=== PATIENT | female | born 1990 | race Caucasian/White ===

== ENCOUNTER 2016-03-20 20:39 | Emergency (ER) | payer MEDICARE, MEDICAID ==
[~2016-03-20 20:39] MED LIST: ABIL15TA OR; ABIL20TA2 OR; BACT800T OR; EFFE150C OR; EFFE75CA75 OR; INVE6TAB3 OR; LAMI25TA OR; TRIL600T OR; [UNRECOGNIZED DRUG - CODE] OR
--- NOTE | 2016-03-20 21:09 | EDDOCDS ---
Physician Documentation [facility] Name: Odilia Delvalle Age: 25 yrs Sex: Female : 1990 Arrival Date: 03/20/2016 Time: 20:39 Bed TR1 Private MD: Shanice Ross Disposition: 03/20/16 20:55 Discharged to Home/Self Care. Impression: Abrasion of back wall of thorax. - Condition is Stable. - Discharge Instructions: Abrasion. - Medication Reconciliation, Local Pharmacy Hours form. - Follow up: Private Physician; When: As needed; Reason: Continuance of care. - Problem is new. - Symptoms are unchanged. - Notes: ice 20 min an hour Historical: - Allergies: seasonAL; - Home Meds: 1. Effexor XR 75 mg Oral cp24 1 cap twice daily 2. Abilify 20 mg Oral tab 1 tab once daily 3. Colace 100 mg oral cap 1 cap once daily 4. flonase 50 mcg 1 spray daily 5. Lamictal 200 mg Oral tab 1 tab 2 times per day 6. Vitamin D 2000 units Oral 2000 unit daily D3 7. Claritin 10 mg Oral tab 1 tab once daily - PMHx: Depression; Seizure Disorder; - PSHx: none; - Social history: Smoking status: Patient states was never smoker of tobacco. No barriers to communication noted, The patient speaks fluent Kyrgyz. - Family history: Not pertinent. - : The pt / caregiver states he / she is not on anticoagulants. Home medication list is obtained from the caregiver. - Exposure Risk Screening:: None identified. REVIEW ANALYST: 03/20 20:46 LMP 03/13/2016 ms18 Vital Signs: 20:40 BP 117 / 79; Pulse 109; Resp 18 S; Temp 97.3(O); Pulse Ox 97% on R/A; Weight 92.53 kg / dd6 203.99 lbs (M); MDM: 21:00 [facility] Payment Agreement was scanned into [employer] and attached to record. gjb 21:00 Financial registration complete. gjb Signatures: Mike Leary FNP FNP ke Hafner, Jane, RN RN [facility] Citlalli Reyes RN RN ms18 Elsy Reyes The chart was reviewed and I authenticate all verbal orders and agree with the evaluation and treatment provided.Attachments: 21:00 [facility] Payment Agreement gjb MTDD
--- NOTE | 2016-03-20 21:09 | EDDOCDS ---
Nurse's Notes [facility] Name: Odilia Delvalle Age: 25 yrs Sex: Female : 1990 Arrival Date: 03/20/2016 Time: 20:39 Bed TR1 Private MD: Shanice Ross Diagnosis: Abrasion of back wall of thorax Presentation: 03/20 20:41 Presenting complaint: Caregiver states that the pt fell in the shower approx 20 mins ms18 ago. Pt presents with a large hematoma on her back and an abrasion. Adult Sepsis Screening: The patient does not have new or worsening altered mentation. Patient's respiratory rate is less than 22. Systolic blood pressure is greater than 100. Patient has a qSOFA score of 0- Negative Sepsis Screen. Suicide/Homicide risk assessment- the patient denies having any suicidal and/or homicidal ideations and does not present with any other emotional, behavioral or mental health complaints. Status: Patient is not a client service representative or dependent. Transition of care: patient was not received from another setting of care. 20:41 Acuity: ANASTACIO Level 4 ms18 20:41 Method Of Arrival: Walkin/Carried/Asstd ms18 Triage Assessment: 20:46 General: Appears in no apparent distress, comfortable, Behavior is appropriate for age, ms18 cooperative. Pain: Location: lumbar area. HIV screening NA for this visit Offered previously. Neurological: Level of Consciousness is awake, Oriented to person, place. Respiratory: No deficits noted. Derm: Skin is pink, warm & dry. Bruising that is bright red, on lumbar area. Musculoskeletal: Reports pain in lumbar area. INSEMINATOR: 20:46 LMP 03/13/2016 ms18 Historical: - Allergies: seasonAL; - Home Meds: 1. Effexor XR 75 mg Oral cp24 1 cap twice daily 2. Abilify 20 mg Oral tab 1 tab once daily 3. Colace 100 mg oral cap 1 cap once daily 4. flonase 50 mcg 1 spray daily 5. Lamictal 200 mg Oral tab 1 tab 2 times per day 6. Vitamin D 2000 units Oral 2000 unit daily D3 7. Claritin 10 mg Oral tab 1 tab once daily - PMHx: Depression; Seizure Disorder; - PSHx: none; - Social history: Smoking status: Patient states was never smoker of tobacco. No barriers to communication noted, The patient speaks fluent Tamazight. - Family history: Not pertinent. - : The pt / caregiver states he / she is not on anticoagulants. Home medication list is obtained from the caregiver. - Exposure Risk Screening:: None identified. Screenin:04 Screening information is obtained from the patient. Fall risk: No risks identified. cj Assistance ADL's: requires no assistance with activities of daily living. Abuse/DV Screen: The patient / caregiver reports he/she is: not in a situation that causes fear, pain or injury. Nutritional screening: No deficits noted. Advance Directives: There is no active DNR order. home support is adequate. Assessment: 21:04 General: Appears in no apparent distress, comfortable, Behavior is appropriate for age, cjh cooperative. Pain: Location: back Pain currently is 5 out of 10 on a pain scale. Respiratory: Airway is patent Respiratory effort is even, unlabored, Respiratory pattern is regular, symmetrical. Musculoskeletal: Range of motion intact in all extremities. Injury Description: Abrasion sustained to back is no bleeding, clean pt fell from standing. 21:07 General: reviewed discharge instructions, encouraged and answered questions, denies [facility] further needs. Ice packs provided for home use, encouraged patient to return for worsening symptoms or any other concerns. Vital Signs: 20:40 BP 117 / 79; Pulse 109; Resp 18 S; Temp 97.3(O); Pulse Ox 97% on R/A; Weight 92.53 kg dd6 (M); Vitals: 20:40 Log In Time: March 20, 2016 at 20:38. dd6 ED Course: 20:40 Patient visited by Filiberto Rodriguez PCA. dd6 20:40 Shanice Ross DO is Private Physician. dd6 20:40 Patient moved to Waiting dd6 20:41 Patient moved to Pre RCE dd6 20:42 Triage Initiated ms18 20:47 Patient moved to Triage 2 ms18 20:48 Mike Leary FNP is [facility]. ke 20:48 Patient visited by Mike Leary FNP. ke 20:48 Patient visited by Mike Leary FNP. ke 21:00 [facility] Payment Agreement was scanned into [employer] and attached to record. gjb 21:04 Patient moved to TR1 rs6 21:04 The patient / caregiver is instructed regarding the plan of care and ED course. [facility] 21:04 No IV's were initiated during this patient's visit. No procedures done that require [facility] assistance. Order Results: There are currently no results for this order. Outcome: 20:55 Discharge ordered by Provider. 21:04 Discharge Assessment: Patient awake, alert and oriented x 3. No cognitive and/or [facility] functional deficits noted. Patient verbalized understanding of disposition instructions. patient administered narcotics - no. The following High Risk Discharge criteria are identified: None. Discharged to home ambulatory, putty patcher. Condition: good Condition: stable Condition: unchanged. Discharge instructions given to patient, Instructed on discharge instructions, follow up and referral plans. Rest, Ice, Compression and Elevation. Demonstrated understanding of instructions, Pt was receptive of discharge instructions/ teaching. No special radiology studies were completed. Property :Personal belongings accompany Pt. 21:08 Patient left the ED. [facility] Signatures: Mike Leary, ACID EXTRACTOR ACID EXTRACTOR Filiberto Price, LARD BLEACHER LARD BLEACHER dd6 Shanice Carias RN RN [facility] Citlalli Reyes RN RN msHeidi Ortiz, LARD BLEACHER LARD BLEACHER rs6 Elsy Reyes [facility]
--- NOTE | 2016-03-22 22:09 | EDDOCDS ---
Physician Documentation [facility] Name: Odilia Delvalle Age: 25 yrs Sex: Female : 1990 Arrival Date: 03/20/2016 Time: 20:39 Bed TR1 Private MD: Shanice Ross Disposition: 03/20/16 20:55 Discharged to Home/Self Care. Impression: Abrasion of back wall of thorax. - Condition is Stable. - Discharge Instructions: Abrasion. - Medication Reconciliation, Local Pharmacy Hours form. - Follow up: Private Physician; When: As needed; Reason: Continuance of care. - Problem is new. - Symptoms are unchanged. - Notes: ice 20 min an hour Historical: - Allergies: seasonAL; - Home Meds: 1. Effexor XR 75 mg Oral cp24 1 cap twice daily 2. Abilify 20 mg Oral tab 1 tab once daily 3. Colace 100 mg oral cap 1 cap once daily 4. flonase 50 mcg 1 spray daily 5. Lamictal 200 mg Oral tab 1 tab 2 times per day 6. Vitamin D 2000 units Oral 2000 unit daily D3 7. Claritin 10 mg Oral tab 1 tab once daily - PMHx: Depression; Seizure Disorder; - PSHx: none; - Social history: Smoking status: Patient states was never smoker of tobacco. No barriers to communication noted, The patient speaks fluent Turkmen. - Family history: Not pertinent. - : The pt / caregiver states he / she is not on anticoagulants. Home medication list is obtained from the caregiver. - Exposure Risk Screening:: None identified. TOOL DRESSER: 03/20 20:46 LMP 03/13/2016 ms18 Vital Signs: 20:40 BP 117 / 79; Pulse 109; Resp 18 S; Temp 97.3(O); Pulse Ox 97% on R/A; Weight 92.53 kg / dd6 203.99 lbs (M); MDM: 21:00 [facility] Payment Agreement was scanned into [employer] and attached to record. [facility] 21:00 Financial registration complete. b 03/21 09:34 T-Sheet-- Draft Copy was scanned into [employer] and attached to record. gb Signatures: Argelia Ching, Reg Reg Mike Mazariegos, SNOW GROOMER SNOW GROOMER Shanice Julian,RN RN [facility] Citlalli Reyes RN RN ms18 Elsy Reyesb The chart was reviewed and I authenticate all verbal orders and agree with the evaluation and treatment provided.Attachments: 03/20 21:00 [facility] Payment Agreement gjb 03/21 09:34 T-Sheet-- Draft Copy gb Chart Complete MTDD
--- NOTE | 2016-03-22 22:09 | EDDOCDS ---
Nurse's Notes [facility] Name: Odilia Delvalle Age: 25 yrs Sex: Female : 1990 Arrival Date: 03/20/2016 Time: 20:39 Bed TR1 Private MD: Shanice Ross Diagnosis: Abrasion of back wall of thorax Presentation: 03/20 20:41 Presenting complaint: Caregiver states that the pt fell in the shower approx 20 mins ms18 ago. Pt presents with a large hematoma on her back and an abrasion. Adult Sepsis Screening: The patient does not have new or worsening altered mentation. Patient's respiratory rate is less than 22. Systolic blood pressure is greater than 100. Patient has a qSOFA score of 0- Negative Sepsis Screen. Suicide/Homicide risk assessment- the patient denies having any suicidal and/or homicidal ideations and does not present with any other emotional, behavioral or mental health complaints. Status: Patient is not a children's service worker or dependent. Transition of care: patient was not received from another setting of care. 20:41 Acuity: ANASTACIO Level 4 ms18 20:41 Method Of Arrival: Walkin/Carried/Asstd ms18 Triage Assessment: 20:46 General: Appears in no apparent distress, comfortable, Behavior is appropriate for age, ms18 cooperative. Pain: Location: lumbar area. HIV screening NA for this visit Offered previously. Neurological: Level of Consciousness is awake, Oriented to person, place. Respiratory: No deficits noted. Derm: Skin is pink, warm & dry. Bruising that is bright red, on lumbar area. Musculoskeletal: Reports pain in lumbar area. WET END TESTER: 20:46 LMP 03/13/2016 ms18 Historical: - Allergies: seasonAL; - Home Meds: 1. Effexor XR 75 mg Oral cp24 1 cap twice daily 2. Abilify 20 mg Oral tab 1 tab once daily 3. Colace 100 mg oral cap 1 cap once daily 4. flonase 50 mcg 1 spray daily 5. Lamictal 200 mg Oral tab 1 tab 2 times per day 6. Vitamin D 2000 units Oral 2000 unit daily D3 7. Claritin 10 mg Oral tab 1 tab once daily - PMHx: Depression; Seizure Disorder; - PSHx: none; - Social history: Smoking status: Patient states was never smoker of tobacco. No barriers to communication noted, The patient speaks fluent Danish. - Family history: Not pertinent. - : The pt / caregiver states he / she is not on anticoagulants. Home medication list is obtained from the caregiver. - Exposure Risk Screening:: None identified. Screenin:04 Screening information is obtained from the patient. Fall risk: No risks identified. cj Assistance ADL's: requires no assistance with activities of daily living. Abuse/DV Screen: The patient / caregiver reports he/she is: not in a situation that causes fear, pain or injury. Nutritional screening: No deficits noted. Advance Directives: There is no active DNR order. home support is adequate. Assessment: 21:04 General: Appears in no apparent distress, comfortable, Behavior is appropriate for age, cjh cooperative. Pain: Location: back Pain currently is 5 out of 10 on a pain scale. Respiratory: Airway is patent Respiratory effort is even, unlabored, Respiratory pattern is regular, symmetrical. Musculoskeletal: Range of motion intact in all extremities. Injury Description: Abrasion sustained to back is no bleeding, clean pt fell from standing. 21:07 General: reviewed discharge instructions, encouraged and answered questions, denies [facility] further needs. Ice packs provided for home use, encouraged patient to return for worsening symptoms or any other concerns. Vital Signs: 20:40 BP 117 / 79; Pulse 109; Resp 18 S; Temp 97.3(O); Pulse Ox 97% on R/A; Weight 92.53 kg dd6 (M); Vitals: 20:40 Log In Time: March 20, 2016 at 20:38. dd6 ED Course: 20:40 Patient visited by Filiberto Rodriguez PCA. dd6 20:40 Shanice Ross DO is Private Physician. dd6 20:40 Patient moved to Waiting dd6 20:41 Patient moved to Pre RCE dd6 20:42 Triage Initiated ms18 20:47 Patient moved to Triage 2 ms18 20:48 Mike Leary FNP is [facility]. ke 20:48 Patient visited by Mike Leary FNP. ke 20:48 Patient visited by Mike Leary FNP. ke 21:00 [facility] Payment Agreement was scanned into [employer] and attached to record. gjb 21:04 Patient moved to TR1 rs6 21:04 The patient / caregiver is instructed regarding the plan of care and ED course. [facility] 21:04 No IV's were initiated during this patient's visit. No procedures done that require [facility] assistance. 21:10 Patient name changed from Sundi\S\\S\Bigarel\S\ to Sundi\S\ \S\Bigarel. EDMS 03/21 09:34 T-Sheet-- Draft Copy was scanned into [employer] and attached to record. Order Results: There are currently no results for this order. Outcome: 03/20 20:55 Discharge ordered by Provider. 21:04 Discharge Assessment: Patient awake, alert and oriented x 3. No cognitive and/or [facility] functional deficits noted. Patient verbalized understanding of disposition instructions. patient administered narcotics - no. The following High Risk Discharge criteria are identified: None. Discharged to home ambulatory, cutter and presser. Condition: good Condition: stable Condition: unchanged. Discharge instructions given to patient, Instructed on discharge instructions, follow up and referral plans. Rest, Ice, Compression and Elevation. Demonstrated understanding of instructions, Pt was receptive of discharge instructions/ teaching. No special radiology studies were completed. Property :Personal belongings accompany Pt. 21:08 Patient left the ED. [facility] Signatures: Dispatcher [facility] Argelia Ching, Mike Gutierrez, CLINICAL INFORMATICS MANAGER CLINICAL INFORMATICS MANAGER Filiberto Price, CARDIOVASCULAR SURGEON CARDIOVASCULAR SURGEON dd6 Shanice Carias RN RN [facility] Citlalli Reyes RN RN msHeidi Ortiz, CARDIOVASCULAR SURGEON CARDIOVASCULAR SURGEON rs6 Elsy Reyes Chart Complete MTDD
--- NOTE | 2016-03-22 22:09 | EDDOCDS ---
Physician Documentation [facility] Name: Odilia Delvalle Age: 25 yrs Sex: Female : 1990 Arrival Date: 03/20/2016 Time: 20:39 Bed TR1 Private MD: Shanice Ross Disposition: 03/20/16 20:55 Discharged to Home/Self Care. Impression: Abrasion of back wall of thorax. - Condition is Stable. - Discharge Instructions: Abrasion. - Medication Reconciliation, Local Pharmacy Hours form. - Follow up: Private Physician; When: As needed; Reason: Continuance of care. - Problem is new. - Symptoms are unchanged. - Notes: ice 20 min an hour Historical: - Allergies: seasonAL; - Home Meds: 1. Effexor XR 75 mg Oral cp24 1 cap twice daily 2. Abilify 20 mg Oral tab 1 tab once daily 3. Colace 100 mg oral cap 1 cap once daily 4. flonase 50 mcg 1 spray daily 5. Lamictal 200 mg Oral tab 1 tab 2 times per day 6. Vitamin D 2000 units Oral 2000 unit daily D3 7. Claritin 10 mg Oral tab 1 tab once daily - PMHx: Depression; Seizure Disorder; - PSHx: none; - Social history: Smoking status: Patient states was never smoker of tobacco. No barriers to communication noted, The patient speaks fluent Serbian. - Family history: Not pertinent. - : The pt / caregiver states he / she is not on anticoagulants. Home medication list is obtained from the caregiver. - Exposure Risk Screening:: None identified. TWISTER DOFFER: 03/20 20:46 LMP 03/13/2016 ms18 Vital Signs: 20:40 BP 117 / 79; Pulse 109; Resp 18 S; Temp 97.3(O); Pulse Ox 97% on R/A; Weight 92.53 kg / dd6 203.99 lbs (M); MDM: 21:00 [facility] Payment Agreement was scanned into [employer] and attached to record. [facility] 21:00 Financial registration complete. b 03/21 09:34 T-Sheet-- Draft Copy was scanned into [employer] and attached to record. gb Signatures: Argelia Ching, Reg Reg Mike Mazariegos, DUMP TRUCK DRIVER OFF HIG[address] DUMP TRUCK DRIVER OFF HIG[address] Shanice Julian,RN RN [facility] Citlalli Reyes RN RN ms18 Elsy Reyesb The chart was reviewed and I authenticate all verbal orders and agree with the evaluation and treatment provided.Attachments: 03/20 21:00 [facility] Payment Agreement gjb 03/21 09:34 T-Sheet-- Draft Copy gb Chart Complete MTDD
== END 2016-03-20 21:08 | disposition home or self-care (01) ==
LOC: M ED 20:39
DX: S20.419A Abrasion of unspecified back wall of thorax, initial encounter (principal); W01.0XXA Fall on same level from slipping, tripping and stumbling without subsequent striking against object, initial encounter; Y92.003 Bedroom of unspecified non-institutional (private) residence as the place of occurrence of the external cause; Y93.E1 Activity, personal bathing and showering; Y99.8 Other external cause status; F32.9 Major depressive disorder, single episode, unspecified; G40.909 Epilepsy, unspecified, not intractable, without status epilepticus; Z79.899 Other long term (current) drug therapy; J30.9 Allergic rhinitis, unspecified

== ENCOUNTER → 2016-05-21 | Outpatient (CLI) | payer MEDICARE, MEDICAID | LOC: M LAB 06:33 | PROVIDERS: ATTEND Physician Assistant Medical | DX: G40.909 Epilepsy, unspecified, not intractable, without status epilepticus (principal) ==

== ENCOUNTER → 2016-08-15 | Outpatient (REF) | payer MEDICARE, MEDICAID | LOC: M LABDRAW1 12:08 | PROVIDERS: ATTEND Physician Assistant Medical | DX: G40.909 Epilepsy, unspecified, not intractable, without status epilepticus (principal); R00.2 Palpitations ==

== ENCOUNTER → 2016-10-30 | Outpatient (CLI) | payer MEDICARE, MEDICAID ==
[2016-10-30 06:58] LABS: MEAN CORPUSCULAR HGB CONC 32.8 g/dl (32.0-36.5); MEAN CORPUSCULAR VOLUME 82.6 fl (80.0-96.0); RED CELL DISTRIBUTION WIDTH 14.4 % (11.5-14.5); WHITE BLOOD COUNT 6.8 K/mm3 (4.0-10.0)
[2016-10-30 07:37] LABS: ALBUMIN 3.8 GM/DL (3.2-5.2); ALBUMIN/GLOBULIN RATIO 1.23 (1.00-1.93); ALKALINE PHOSPHATASE 113 U/L (45-117); ALT/SGPT 26 U/L (12-78); ANION GAP 9 MEQ/L (8-16); AST/SGOT 15 U/L (15-37); BILIRUBIN,TOTAL 0.5 MG/DL (0.2-1.0); BLOOD UREA NITROGEN 9 MG/DL (7-18); CALCIUM LEVEL 8.7 MG/DL (8.5-10.1); CARBON DIOXIDE LEVEL 29 MEQ/L (21-32); CHLORIDE LEVEL 109 MEQ/L (98-107); GLOMERULAR FILTRATION RATE > 60.0 (>60); GLUCOSE, FASTING 76 MG/DL (70-105); POTASSIUM SERUM 4.3 MEQ/L (3.5-5.1); SODIUM LEVEL 147 MEQ/L (136-145); TOTAL PROTEIN 6.9 GM/DL (6.4-8.2)
== END ==
LOC: M LAB 06:20
PROVIDERS: ATTEND Student in an Organized Health Care Education/Training Program
DX: Z00.00 Encounter for general adult medical examination without abnormal findings (principal); Z79.899 Other long term (current) drug therapy; R56.9 Unspecified convulsions

== ENCOUNTER → 2017-02-27 | Outpatient (CLI) | payer MEDICARE, MEDICAID | LOC: M LAB 06:35 | PROVIDERS: ATTEND Physician Assistant Medical | DX: Z51.81 Encounter for therapeutic drug level monitoring (principal); Z79.899 Other long term (current) drug therapy; R56.9 Unspecified convulsions ==

== ENCOUNTER 2017-04-02 15:56 | Inpatient (IN) | payer MEDICARE, MEDICAID, OTHER ==
[2017-04-02 17:59] LABS: CONTROL LINE HCG INT CTR LINE PRESENT; HCG, SERUM QUALITATIVE NEGATIVE (NEGATIVE)
[2017-04-02 18:00] LABS: HEMATOCRIT 39.4 % (36.0-47.0); HEMOGLOBIN 12.6 g/dl (12.0-16.0); MEAN CORPUSCULAR HEMOGLOBIN 26.8 pg (27.0-33.0); MEAN CORPUSCULAR VOLUME 83.7 fl (80.0-96.0); PLATELET COUNT, AUTOMATED 313 10^3/uL (150-450); RED BLOOD COUNT 4.71 10^6/uL (4.00-5.40); RED CELL DISTRIBUTION WIDTH 14.2 % (11.5-14.5); WHITE BLOOD COUNT 11.4 10^3/uL (4.0-10.0)
[2017-04-02 18:11] LABS: AMPHETAMINES LEVEL URINE NEGATIVE (NEGATIVE); BARBITURATES URINE NEGATIVE (NEGATIVE); BENZODIAZEPINES URINE NEGATIVE (NEGATIVE); CANNABINOIDS URINE NEGATIVE (NEGATIVE); COCAINE METABOLITE URINE NEGATIVE (NEGATIVE); METHADONE URINE NEGATIVE (NEGATIVE); OPIATES URINE NEGATIVE (NEGATIVE); PHENCYCLIDINE URINE NEGATIVE (NEGATIVE)
[2017-04-02 18:16] LABS: ALBUMIN 3.5 GM/DL (3.2-5.2); ALBUMIN/GLOBULIN RATIO 0.92 (1.00-1.93); ALKALINE PHOSPHATASE 93 U/L (45-117); ALT/SGPT 16 U/L (12-78); ANION GAP 7 MEQ/L (8-16); AST/SGOT 10 U/L (7-37); BILIRUBIN,DIRECT < 0.1 MG/DL (0.0-0.2); BILIRUBIN,TOTAL 0.3 MG/DL (0.2-1.0); BLOOD UREA NITROGEN 9 MG/DL (7-18); CALCIUM LEVEL 9.2 MG/DL (8.5-10.1); CARBON DIOXIDE LEVEL 29 MEQ/L (21-32); CHLORIDE LEVEL 104 MEQ/L (98-107); CREATININE FOR GFR 0.62 MG/DL (0.55-1.02); GLOMERULAR FILTRATION RATE > 60.0 (>60); GLUCOSE, FASTING 78 MG/DL (70-100); POTASSIUM SERUM 4.8 MEQ/L (3.5-5.1); SALICYLATE LEVEL < 1.7 MG/DL (5.0-30.0); SODIUM LEVEL 140 MEQ/L (136-145); TOTAL PROTEIN 7.3 GM/DL (6.4-8.2)
[2017-04-02 18:25] LABS: ACETAMINOPHEN LEVEL < 2.0 UG/ML (10.0-30.0); ETHYL ALCOHOL (ETHANOL) < 0.003 % (0.000-0.010)
[2017-04-03] MEDS ORDERED: MIRALAX *UNIT DOSE* 17GM PACKET PO (00:45)
[2017-04-03] MEDS ORDERED: MAALOX 30 ML SUSP *UDC PO (00:45)
[2017-04-03] MEDS ORDERED: MOM 30ML SUSPENSION UDC PO (00:45)
[2017-04-03] MEDS: lamoTRIgine 100MG TAB PO ×3 (01:06→20:43)
[2017-04-03] MEDS: ARIPiprazole 2 MG TAB PO (01:06)
[2017-04-03] MEDS: ARIPiprazole 10 MG TAB PO ×2 (08:21→20:42)
[2017-04-03] MEDS: VITAMIN D 1,000 INTERNATIONAL UNITS TABLET PO (08:22)
[2017-04-03] MEDS: LORATADINE 10 MG TAB PO (08:22)
[2017-04-03] MEDS: hydrOXYzine 10 MG TAB PO (11:57)
[2017-04-03] MEDS: NIKKI PO (13:36)
[2017-04-03] MEDS: FLUTICASONE PROP 0.05% NASAL SPRAY 16 GM (FLONASE) (20:43)
[2017-04-04 07:08] LABS: HEMATOCRIT 42.5 % (36.0-47.0); HEMOGLOBIN 13.6 g/dl (12.0-16.0); MEAN CORPUSCULAR HEMOGLOBIN 26.7 pg (27.0-33.0); MEAN CORPUSCULAR VOLUME 83.5 fl (80.0-96.0); PLATELET COUNT, AUTOMATED 299 10^3/uL (150-450); RED BLOOD COUNT 5.09 10^6/uL (4.00-5.40); RED CELL DISTRIBUTION WIDTH 14.1 % (11.5-14.5); WHITE BLOOD COUNT 9.7 10^3/uL (4.0-10.0)
[2017-04-04] MEDS: VITAMIN D 1,000 INTERNATIONAL UNITS TABLET PO (08:08)
[2017-04-04] MEDS: VENLAFAXINE **XR** 37.5 MG CAPSULE PO (08:08)
[2017-04-04] MEDS: LORATADINE 10 MG TAB PO (08:08)
[2017-04-04] MEDS: NIKKI PO (08:08)
[2017-04-04] MEDS: lamoTRIgine 100MG TAB PO ×2 (08:08→21:01)
[2017-04-04] MEDS: ARIPiprazole 10 MG TAB PO ×2 (08:08→21:02)
[2017-04-04] MEDS: VENLAFAXINE **XR** 75MG CAPSULE PO ×2 (08:08→21:01)
[2017-04-04] MEDS: hydrOXYzine 50 MG TAB PO (08:24)
[2017-04-04] MEDS ORDERED: ENTER DRUG NAME HERE (PATIENT'S OWN MED) PO (09:00)
[2017-04-04] MEDS: FLUTICASONE PROP 0.05% NASAL SPRAY 16 GM (FLONASE) (21:01)
[2017-04-05] MEDS: LORATADINE 10 MG TAB PO (08:26)
[2017-04-05] MEDS: lamoTRIgine 100MG TAB PO ×2 (08:26→21:19)
[2017-04-05] MEDS: NIKKI PO (08:26)
[2017-04-05] MEDS: VENLAFAXINE **XR** 75MG CAPSULE PO (08:26)
[2017-04-05] MEDS: ARIPiprazole 10 MG TAB PO ×2 (08:26→21:19)
[2017-04-05] MEDS: VITAMIN D 1,000 INTERNATIONAL UNITS TABLET PO (08:26)
[2017-04-05 14:13] LABS: LAMOTRIGINE (LAMICTAL) 4.3 ug/mL (2.0-20.0)
[2017-04-05] MEDS: FLUTICASONE PROP 0.05% NASAL SPRAY 16 GM (FLONASE) (21:19)
[2017-04-06] MEDS: VENLAFAXINE **XR** 75MG CAPSULE PO (08:37)
[2017-04-06] MEDS: lamoTRIgine 100MG TAB PO ×2 (08:37→20:53)
[2017-04-06] MEDS: ARIPiprazole 10 MG TAB PO ×2 (08:37→20:53)
[2017-04-06] MEDS: LORATADINE 10 MG TAB PO (08:37)
[2017-04-06] MEDS: VITAMIN D 1,000 INTERNATIONAL UNITS TABLET PO (08:37)
[2017-04-06] MEDS: NIKKI PO (08:37)
[2017-04-06] MEDS: FLUTICASONE PROP 0.05% NASAL SPRAY 16 GM (FLONASE) (20:53)
[2017-04-07] MEDS: VENLAFAXINE **XR** 75MG CAPSULE PO (08:24)
[2017-04-07] MEDS: NIKKI PO (08:24)
[2017-04-07] MEDS: ARIPiprazole 10 MG TAB PO ×2 (08:24→20:38)
[2017-04-07] MEDS: LORATADINE 10 MG TAB PO (08:24)
[2017-04-07] MEDS: VITAMIN D 1,000 INTERNATIONAL UNITS TABLET PO (08:25)
[2017-04-07] MEDS: lamoTRIgine 100MG TAB PO ×2 (08:25→20:38)
[2017-04-07] MEDS: FLUTICASONE PROP 0.05% NASAL SPRAY 16 GM (FLONASE) (20:39)
[2017-04-07] MEDS: hydrOXYzine 50 MG TAB PO (22:09)
[2017-04-08] MEDS: LORATADINE 10 MG TAB PO (09:00)
[2017-04-08] MEDS: ARIPiprazole 10 MG TAB PO ×2 (09:00→21:18)
[2017-04-08] MEDS: NIKKI PO (09:00)
[2017-04-08] MEDS: VITAMIN D 1,000 INTERNATIONAL UNITS TABLET PO (09:00)
[2017-04-08] MEDS: VENLAFAXINE **XR** 75MG CAPSULE PO (09:00)
[2017-04-08] MEDS: lamoTRIgine 100MG TAB PO ×2 (09:00→21:18)
[2017-04-08] MEDS: FLUTICASONE PROP 0.05% NASAL SPRAY 16 GM (FLONASE) (21:17)
[2017-04-09] MEDS: ARIPiprazole 10 MG TAB PO ×2 (09:49→20:36)
[2017-04-09] MEDS: LORazepam 1 MG TAB PO (09:49)
[2017-04-09] MEDS: LORATADINE 10 MG TAB PO (09:49)
[2017-04-09] MEDS: lamoTRIgine 100MG TAB PO ×2 (09:49→20:37)
[2017-04-09] MEDS: NIKKI PO (09:49)
[2017-04-09] MEDS: VITAMIN D 1,000 INTERNATIONAL UNITS TABLET PO (09:49)
[2017-04-09] MEDS: VENLAFAXINE **XR** 75MG CAPSULE PO (09:49)
[2017-04-09] MEDS: VENLAFAXINE **XR** 37.5 MG CAPSULE PO (09:51)
[2017-04-09] MEDS: FLUTICASONE PROP 0.05% NASAL SPRAY 16 GM (FLONASE) (20:36)
[2017-04-10] MEDS: VENLAFAXINE **XR** 75MG CAPSULE PO (08:49)
[2017-04-10] MEDS: VITAMIN D 1,000 INTERNATIONAL UNITS TABLET PO (08:50)
[2017-04-10] MEDS: VENLAFAXINE **XR** 37.5 MG CAPSULE PO (08:50)
[2017-04-10] MEDS: NIKKI PO (08:50)
[2017-04-10] MEDS: lamoTRIgine 100MG TAB PO ×2 (08:50→21:37)
[2017-04-10] MEDS: LORATADINE 10 MG TAB PO (08:50)
[2017-04-10] MEDS: ARIPiprazole 10 MG TAB PO ×2 (08:50→21:37)
[2017-04-10] MEDS: ACETAMINOPHEN TAB 650MG DOSE (2X325MG) PO (13:29)
[2017-04-10] MEDS: hydrOXYzine 50 MG TAB PO (18:38)
[2017-04-10] MEDS: FLUTICASONE PROP 0.05% NASAL SPRAY 16 GM (FLONASE) (21:37)
[2017-04-11] MEDS: lamoTRIgine 100MG TAB PO ×2 (09:00→20:23)
[2017-04-11] MEDS: VENLAFAXINE **XR** 37.5 MG CAPSULE PO (09:00)
[2017-04-11] MEDS: LORATADINE 10 MG TAB PO (09:00)
[2017-04-11] MEDS: VITAMIN D 1,000 INTERNATIONAL UNITS TABLET PO (09:00)
[2017-04-11] MEDS: ARIPiprazole 10 MG TAB PO ×2 (09:00→20:24)
[2017-04-11] MEDS: NIKKI PO (09:00)
[2017-04-11] MEDS: VENLAFAXINE **XR** 75MG CAPSULE PO (09:00)
[2017-04-11] MEDS: LORazepam 2 MG TAB PO (13:33)
[2017-04-11] MEDS: hydrOXYzine 50 MG TAB PO (18:18)
[2017-04-11] MEDS: FLUTICASONE PROP 0.05% NASAL SPRAY 16 GM (FLONASE) (20:23)
[2017-04-11] MEDS: traZODone 25MG PER 1/2 TABLET PO (20:25)
[2017-04-12] MEDS: NIKKI PO (08:29)
[2017-04-12] MEDS: VITAMIN D 1,000 INTERNATIONAL UNITS TABLET PO (08:29)
[2017-04-12] MEDS: lamoTRIgine 100MG TAB PO ×2 (08:29→22:13)
[2017-04-12] MEDS: LORATADINE 10 MG TAB PO (08:29)
[2017-04-12] MEDS: ARIPiprazole 10 MG TAB PO ×2 (08:29→22:13)
[2017-04-12] MEDS: VENLAFAXINE **XR** 75MG CAPSULE PO (08:29)
[2017-04-12] MEDS: VENLAFAXINE **XR** 37.5 MG CAPSULE PO (08:29)
[2017-04-12] MEDS: hydrOXYzine 50 MG TAB PO (14:40)
[2017-04-12] MEDS: FLUTICASONE PROP 0.05% NASAL SPRAY 16 GM (FLONASE) (22:13)
[2017-04-13] MEDS: ARIPiprazole 10 MG TAB PO ×2 (08:41→20:23)
[2017-04-13] MEDS: VENLAFAXINE **XR** 37.5 MG CAPSULE PO (08:41)
[2017-04-13] MEDS: lamoTRIgine 100MG TAB PO ×2 (08:41→20:23)
[2017-04-13] MEDS: NIKKI PO (08:41)
[2017-04-13] MEDS: VITAMIN D 1,000 INTERNATIONAL UNITS TABLET PO (08:41)
[2017-04-13] MEDS: LORATADINE 10 MG TAB PO (08:41)
[2017-04-13] MEDS: VENLAFAXINE **XR** 75MG CAPSULE PO (08:42)
[2017-04-13] MEDS: FLUTICASONE PROP 0.05% NASAL SPRAY 16 GM (FLONASE) (20:23)
[2017-04-14] MEDS: LORATADINE 10 MG TAB PO (08:53)
[2017-04-14] MEDS: VENLAFAXINE **XR** 37.5 MG CAPSULE PO (08:53)
[2017-04-14] MEDS: ARIPiprazole 10 MG TAB PO ×2 (08:53→21:43)
[2017-04-14] MEDS: VENLAFAXINE **XR** 75MG CAPSULE PO (08:53)
[2017-04-14] MEDS: VITAMIN D 1,000 INTERNATIONAL UNITS TABLET PO (08:53)
[2017-04-14] MEDS: lamoTRIgine 100MG TAB PO ×2 (08:53→21:43)
[2017-04-14] MEDS: NIKKI PO (08:54)
[2017-04-14] MEDS: hydrOXYzine 50 MG TAB PO (19:40)
[2017-04-14] MEDS: FLUTICASONE PROP 0.05% NASAL SPRAY 16 GM (FLONASE) (21:43)
[2017-04-15] MEDS: NIKKI PO (08:56)
[2017-04-15] MEDS: LORATADINE 10 MG TAB PO (08:58)
[2017-04-15] MEDS: VENLAFAXINE **XR** 37.5 MG CAPSULE PO (08:58)
[2017-04-15] MEDS: VENLAFAXINE **XR** 75MG CAPSULE PO (08:58)
[2017-04-15] MEDS: ARIPiprazole 10 MG TAB PO (08:58)
[2017-04-15] MEDS: VITAMIN D 1,000 INTERNATIONAL UNITS TABLET PO (08:59)
[2017-04-15] MEDS: lamoTRIgine 100MG TAB PO (08:59)
== END 2017-04-15 10:10 | disposition home or self-care (01) | DRG 885 ==
LOC: M PSY 23:50 → M ED 15:56 → M ED INP 20:59
DX: F31.89 Other bipolar disorder (principal); F79 Unspecified intellectual disabilities; K59.00 Constipation, unspecified; J30.2 Other seasonal allergic rhinitis; Z79.899 Other long term (current) drug therapy

== ENCOUNTER → 2017-06-24 | Outpatient (REF) | payer MEDICARE, MEDICAID ==
[2017-06-27 14:19] LABS: LAMOTRIGINE (LAMICTAL) 3.7 ug/mL (2.0-20.0)
== END ==
LOC: M LABNEURO 14:40
DX: R56.9 Unspecified convulsions (principal); Z51.81 Encounter for therapeutic drug level monitoring; Z79.899 Other long term (current) drug therapy; R45.89 Other symptoms and signs involving emotional state; F63.9 Impulse disorder, unspecified
CPT/HCPCS: 36415

== ENCOUNTER → 2017-07-10 | Outpatient (REF) | payer MEDICARE, OTHER, MEDICAID | LOC: M SFHCWAGY 10:27 | DX: Z12.4 Encounter for screening for malignant neoplasm of cervix (principal) | CPT/HCPCS: G0123 ==

== ENCOUNTER 2017-10-25 17:08 | Emergency (ER) | payer MEDICARE, MEDICAID, OTHER ==
[2017-10-25 19:29] LABS: HEMATOCRIT 40.9 % (36.0-47.0); HEMOGLOBIN 13.3 g/dl (12.0-15.5); MEAN CORPUSCULAR HEMOGLOBIN 27.6 pg (27.0-33.0); MEAN CORPUSCULAR HGB CONC 32.5 g/dl (32.0-36.5); MEAN CORPUSCULAR VOLUME 84.9 fl (80.0-96.0); PLATELET COUNT, AUTOMATED 288 10^3/uL (150-450); RED BLOOD COUNT 4.82 10^6/uL (4.00-5.40); RED CELL DISTRIBUTION WIDTH 13.5 % (11.5-14.5); WHITE BLOOD COUNT 11.1 10^3/uL (4.0-10.0)
[2017-10-25 19:51] LABS: ANION GAP 7 MEQ/L (8-16); BLOOD UREA NITROGEN 9 MG/DL (7-18); CALCIUM LEVEL 8.8 MG/DL (8.5-10.1); CARBON DIOXIDE LEVEL 30 MEQ/L (21-32); CHLORIDE LEVEL 106 MEQ/L (98-107); CREATININE FOR GFR 0.87 MG/DL (0.55-1.30); GLOMERULAR FILTRATION RATE > 60.0 (>60); GLUCOSE, FASTING 91 MG/DL (70-100); POTASSIUM SERUM 4.4 MEQ/L (3.5-5.1); SODIUM LEVEL 143 MEQ/L (136-145)
[2017-10-25] MEDS: LORazepam 2 MG/ML VIAL (J2060) IV (20:02)
== END 2017-10-25 21:27 | disposition home or self-care (01) ==
LOC: M ED 17:08
DX: F41.1 Generalized anxiety disorder (principal); R20.0 Anesthesia of skin; R56.9 Unspecified convulsions; Z79.899 Other long term (current) drug therapy; Z81.8 Family history of other mental and behavioral disorders
CPT/HCPCS: J2060

== ENCOUNTER → 2017-11-01 | Outpatient (CLI) | payer MEDICARE, MEDICAID ==
[2017-11-01 06:50] LABS: HEMATOCRIT 40.3 % (36.0-47.0); HEMOGLOBIN 13.3 g/dl (12.0-15.5); MEAN CORPUSCULAR VOLUME 84.8 fl (80.0-96.0); PLATELET COUNT, AUTOMATED 234 10^3/uL (150-450); RED BLOOD COUNT 4.75 10^6/uL (4.00-5.40); RED CELL DISTRIBUTION WIDTH 13.4 % (11.5-14.5); WHITE BLOOD COUNT 6.6 10^3/uL (4.0-10.0)
[2017-11-01 07:09] LABS: ESTIMATED AVERAGE GLUCOSE 91 MG/DL (60-110); HEMOGLOBIN A1c 4.8 %
[2017-11-01 07:22] LABS: ANION GAP 7 MEQ/L (8-16); BLOOD UREA NITROGEN 9 MG/DL (7-18); CALCIUM LEVEL 9.2 MG/DL (8.5-10.1); CARBON DIOXIDE LEVEL 29 MEQ/L (21-32); CHLORIDE LEVEL 109 MEQ/L (98-107); CREATININE FOR GFR 0.86 MG/DL (0.55-1.30); GLOMERULAR FILTRATION RATE > 60.0 (>60); GLUCOSE, FASTING 80 MG/DL (70-100); POTASSIUM SERUM 4.5 MEQ/L (3.5-5.1); SODIUM LEVEL 145 MEQ/L (136-145)
[2017-11-04 14:12] LABS: ARIPIPRAZOLE (ABILIFY) LEVEL 491.8 ng/mL (.)
[2017-11-04 14:12] LABS: LAMOTRIGINE (LAMICTAL) 5.6 ug/mL (2.0-20.0)
== END ==
LOC: M LAB 06:19
DX: F28 Other psychotic disorder not due to a substance or known physiological condition (principal); Z79.899 Other long term (current) drug therapy
CPT/HCPCS: 84443

== ENCOUNTER → 2018-03-18 | Outpatient (REF) | payer MEDICARE, MEDICAID, OTHER ==
[~2018-03-18] MED LIST changes: +ABIL1TAB13 PO; +ABIL20TA5 PO; +ACET500T15 PO; +ARIP10TAB PO; +FLON1SPR; +HYDR-643 PO; +HYDR50TA70 PO; +HYDRO50TAB PO; +IBUPOTC PO; +LAMO100T PO; +LAMO200T2 PO; +LORA-243 PO; +MIRA33504 PO; +NIKK1TAB PO; +VENL37.52 PO; +VENL37.598 PO; +VENL75CA47 PO; +VITA2000 PO
== END ==
LOC: M LABNEURO 11:46
PROVIDERS: ATTEND Physician Assistant Medical
DX: Z79.899 Other long term (current) drug therapy (principal); G40.909 Epilepsy, unspecified, not intractable, without status epilepticus

== ENCOUNTER → 2018-12-04 | Outpatient (CLI) | payer MEDICARE, MEDICAID ==
[~2018-12-04] MED LIST changes: +ABIL10TA9 PO; -ARIP10TAB PO; +ARIP1TAB PO; +BUSP1TAB PO; +D3 22000 PO; +EFFE37.5 PO; +EFFE75CA2 PO; +HYDR-3363 PO; +HYDR1TAB33 PO; -HYDRO50TAB PO; -LAMO100T PO; +LAMO100T3 PO; -LAMO200T2 PO; +LAMO200T3 PO
[2018-12-04 07:53] LABS: ALBUMIN 3.7 GM/DL (3.2-5.2); ALT/SGPT 22 U/L (12-78); BILIRUBIN,TOTAL 0.6 MG/DL (0.2-1.0); BLOOD UREA NITROGEN 11 MG/DL (7-18); CALCIUM LEVEL 9.6 MG/DL (8.5-10.1); CARBON DIOXIDE LEVEL 30 MEQ/L (21-32); CHLORIDE LEVEL 105 MEQ/L (98-107); CHOLESTEROL LEVEL 266 MG/DL (<200); CHOLESTEROL RISK RATIO 4.092 (<5); CREATININE FOR GFR 0.89 MG/DL (0.55-1.30); GLOMERULAR FILTRATION RATE > 60.0 (>60); GLUCOSE, FASTING 76 MG/DL (70-100); HDL CHOLESTEROL 65 MG/DL (>40); LDL CHOLESTEROL 142 MG/DL (<100); NON-HDL-C 201 MG/DL; POTASSIUM SERUM 4.5 MEQ/L (3.5-5.1); SODIUM LEVEL 142 MEQ/L (136-145); TOTAL PROTEIN 7.5 GM/DL (6.4-8.2); TRIGLYCERIDES LEVEL 295 MG/DL (<150)
[2018-12-13 00:06] LABS: ARIPIPRAZOLE (ABILIFY) LEVEL 354.2 ng/mL (.); LAMOTRIGINE (LAMICTAL) 7.3 ug/mL (2.0-20.0)
== END ==
LOC: M LAB 06:28
DX: Z00.00 Encounter for general adult medical examination without abnormal findings (principal); F41.9 Anxiety disorder, unspecified; R56.9 Unspecified convulsions
CPT/HCPCS: 36415; 80053; 80061; 80175; G0480

== ENCOUNTER → 2019-01-12 | Outpatient (CLI) | payer MEDICARE, MEDICAID ==
[~2019-01-12] MED LIST changes: -ABIL10TA9 PO; -D3 22000 PO; -EFFE37.5 PO; -EFFE75CA2 PO; -HYDR-3363 PO; +LAMO100T PO; -LAMO100T3 PO; +LAMO200T2 PO; -LAMO200T3 PO
== END ==
LOC: M LAB 06:17
PROVIDERS: ATTEND Physician Assistant Medical
DX: R56.9 Unspecified convulsions (principal); Z51.81 Encounter for therapeutic drug level monitoring

== ENCOUNTER 2019-01-14 16:31 | Emergency (ER) | payer MEDICARE, MEDICAID ==
[~2019-01-14] VITALS: Ht 170.2 cm; Wt 82.7 kg
[~2019-01-14 16:31] MED LIST changes: -BUSP1TAB PO
[2019-01-14 17:44] LABS: BASO % 0.3 % (0.0-1.0); EOS # 0.2 10^3/uL (0.0-0.5); EOS % 1.8 % (0.0-3.0); HEMOGLOBIN 12.4 g/dl (12.0-15.5); LYMPH # 0.9 10^3/uL (1.5-5.0); LYMPH % 7.4 % (24.0-44.0); MEAN CORPUSCULAR HEMOGLOBIN 27.6 pg (27.0-33.0); MEAN CORPUSCULAR HGB CONC 32.6 g/dl (32.0-36.5); MEAN CORPUSCULAR VOLUME 84.6 fl (80.0-96.0); MONO # 0.7 10^3/uL (0.0-0.8); MONO % 5.5 % (0.0-5.0); NEUTROPHILS # 10.3 10^3/uL (1.5-8.5); NEUTROPHILS % 84.6 % (36.0-66.0); PLATELET COUNT, AUTOMATED 302 10^3/uL (150-450); RED BLOOD COUNT 4.49 10^6/uL (4.00-5.40); WHITE BLOOD COUNT 12.1 10^3/uL (4.0-10.0)
[2019-01-14 18:16] LABS: BLOOD UREA NITROGEN 9 MG/DL (7-18); CALCIUM LEVEL 9.3 MG/DL (8.5-10.1); CARBON DIOXIDE LEVEL 28 MEQ/L (21-32); CHLORIDE LEVEL 105 MEQ/L (98-107); CREATININE FOR GFR 0.82 MG/DL (0.55-1.30); GLOMERULAR FILTRATION RATE > 60.0 (>60); GLUCOSE, FASTING 85 MG/DL (70-100); POTASSIUM SERUM 4.1 MEQ/L (3.5-5.1); SODIUM LEVEL 139 MEQ/L (136-145)
[2019-01-14 18:17] LABS: ALBUMIN 3.5 GM/DL (3.2-5.2); ALT/SGPT 18 U/L (12-78); BILIRUBIN,TOTAL 0.6 MG/DL (0.2-1.0); CK-MB VALUE MASS < 1.0 NG/ML (<3.6); CPK CREATINE PHOSPHOKINASE 53 U/L (26-192); HCG, SERUM QUANTITATIVE < 1.0 MIU/ML; MB/CK RELATIVE INDEX 1.89 (< OR =4); THYROID STIMULATING HORMONE 0.621 uIU/ML (0.358-3.740); TOTAL PROTEIN 6.9 GM/DL (6.4-8.2); TROPONIN I < 0.02 NG/ML (< 0.10)
[2019-01-14] MEDS ORDERED: GI COCKTAIL 50ML BTL(HYOSCYAMINE/MAALOX/LIDOCAINE VISCOUS)(1:3:1) PO ONE (18:30)
--- NOTE | 2019-01-14 19:12 | REP ---
Chest x-ray: Two views. History: Chest pain. No comparison study. Findings: There is bilateral hilar fullness consistent with bilateral hilar lymphadenopathy. There is fullness in the aortopulmonary window region of the mediastinal contour suggesting mediastinal adenopathy as well. The lungs are well inflated and clear. Pleural angles are sharp. Heart size is normal. Pulmonary vasculature is not increased. No bony abnormality is seen. Impression: Bilateral hilar and mediastinal lymphadenopathy. Question sarcoidosis versus lymphoma versus other etiology. Consider chest CT study. Electronically Signed by Narayan Copeland MD 01/14/2019 07:04 P
[2019-01-14] MEDS ORDERED: ISOVUE-370 76% 100ML VIAL (Q9967) As Ordered ONE (19:17)
[2019-01-14] MEDS ORDERED: BUSP1TAB PO (19:56)
[2019-01-14] MEDS ORDERED: KETOROLAC 30 MG/ML VIAL (J1885) IV ONE (20:15)
--- NOTE | 2019-01-14 20:24 | ECGEPIP ---
[facility] - ED Test Date: 2019-01-14 Pat Name: SATISH GLASS Department: Room: - Gender: Female [employer] Manager: VICTORINO : 1990 Requested By: SATYA MCGOWAN PA-C. Order Number: [id number] Reading MD: Darek Singh Measurements Intervals [place] Rate: 76 P: 13 [place]: 135 QRS: 46 QRSD: 93 T: 29 QT: 404 QTc: 454 Interpretive Statements SINUS RHYTHM INCOMPLETE RIGHT BUNDLE BRANCH BLOCK SIMILAR TO 04/03/17 Electronically Signed on 01-14-2019 20:23:53 EST by Darek Singh
--- NOTE | 2019-01-14 21:04 | REPVR ---
PROCEDURE INFORMATION: Exam: CT Chest With Contrast Exam date and time: 01/14/2019 7:43 PM Clinical history: 28 years old, female; Chest pain; Additional info: Cxr shows lymphoma vs sarcoidosis, no HX either TECHNIQUE: Imaging protocol: Computed tomography of the chest with intravenous contrast. 3D rendering: MIP reconstructed images were created and reviewed. Radiation optimization: All CT scans at this facility use at least one of these dose optimization techniques: automated exposure control; mA and/or kV adjustment per patient size (includes targeted exams where dose is matched to clinical indication); or iterative reconstruction. Contrast material: ISOVUE 370; Contrast volume: 100 ml; Contrast route: IV; COMPARISON: CR Chest, 2 view PA, Lat 01/14/2019 6:36 PM FINDINGS: Lungs: 6 mm nodule along the left fissure, likely an intrapulmonary enlarged lymph node. Left upper lobe anterior 8 mm nodule on series 201, image 30 6. Left lower lobe superior segment 5 mm nodule on series 201, image 51. No consolidation or fibrosis. Pleural space: Unremarkable. No pneumothorax. No pleural effusion. Heart: Unremarkable. No cardiomegaly. No pericardial effusion. Aorta: Unremarkable. No aortic aneurysm. Other arteries: Left vertebral artery arises from the aortic arch. Lymph nodes: Mediastinal and hilar adenopathy. Subcarinal 1.9 cm short axis lymph node. Right suprahilar confluent adenopathy measuring 4 x 3.5 cm. Left hilar adenopathy with largest measuring 2.3 cm. Numerous scattered small upper mediastinal lymph nodes. Cap no lymph node calcification Liver: Liver enlargement and low attenuation. 10 mm indeterminate liver lesion. Gallbladder and bile ducts: Fat stranding around the gallbladder with mucosal enhancement and fat stranding. Additionally, there is biliary duct dilatation. Recommend right upper quadrant ultrasound to evaluate for acute cholecystitis. Spleen: Splenomegaly . Bones/joints: Unremarkable. No acute fracture. Soft tissues: Unremarkable. IMPRESSION: 1. Fat stranding around the gallbladder with mucosal enhancement and fat stranding. Additionally, there is biliary duct dilatation. Recommend right upper quadrant ultrasound to evaluate for acute cholecystitis. 2. Mediastinal and hilar adenopathy. Suspect lymphoma as opposed to sarcoidosis. 3. Couple small pulmonary nodules, 1 of which is along the fissure and likely an intrapulmonary lymph node, however the other are intraparenchymal and indeterminate. Recommend follow-up per Fleischner criteria. The largest measures 8 mm 4. Liver enlargement and low attenuation. 10 mm indeterminate liver lesion. Consider follow-up. 5. Splenomegaly. COMMENT: As per Fleischner Society guidelines for follow-up and management of pulmonary nodules: For patients at low risk (minimal or absent history of smoking and of other known risk factors), recommend initial follow-up chest CT at 6-12 months then at 18-24 months if no change. For patient at high risk (history of smoking or of other known risk factors), recommend initial follow-up chest CT at 3-6 months, then at 9-12 and 24 months if no change. Electronically signed by: Abe Molina On 01/14/2019 21:04:03 PM
[2019-01-14 21:45] VITALS: BP 129/82
== END 2019-01-14 21:46 | disposition home or self-care (01) ==
LOC: M ED 16:31
DX: C85.90 Non-Hodgkin lymphoma, unspecified, unspecified site (principal); R91.8 Other nonspecific abnormal finding of lung field; K83.8 Other specified diseases of biliary tract; K76.9 Liver disease, unspecified; R06.02 Shortness of breath; R07.9 Chest pain, unspecified; R51 Headache; R56.9 Unspecified convulsions; J30.2 Other seasonal allergic rhinitis; F41.9 Anxiety disorder, unspecified; Z79.899 Other long term (current) drug therapy; Z79.3 Long term (current) use of hormonal contraceptives
CPT/HCPCS: 71046; 71260; 80053; 82550; 82553; 84443; 84484; 84702; 85025; 85379; 93005; 96374; 99284; J1885; Q9967

== ENCOUNTER → 2019-01-20 | Outpatient (REF) | payer MEDICARE, MEDICAID ==
[~2019-01-20] MED LIST changes: +BUSP1TAB PO; +EFFE37.5 PO; +EFFE75CA2 PO; +HYDR-3363 PO
[2019-01-20 17:59] LABS: BASO % 0.4 % (0.0-1.0); EOS # 0.2 10^3/uL (0.0-0.5); HEMATOCRIT 42.8 % (36.0-47.0); LYMPH # 0.8 10^3/uL (1.5-5.0); LYMPH % 8.4 % (24.0-44.0); MEAN CORPUSCULAR HEMOGLOBIN 27.6 pg (27.0-33.0); MEAN CORPUSCULAR HGB CONC 32.7 g/dl (32.0-36.5); MEAN CORPUSCULAR VOLUME 84.3 fl (80.0-96.0); MONO # 0.9 10^3/uL (0.0-0.8); MONO % 9.1 % (0.0-5.0); NEUTROPHILS # 7.5 10^3/uL (1.5-8.5); NEUTROPHILS % 79.5 % (36.0-66.0); PLATELET COUNT, AUTOMATED 298 10^3/uL (150-450); RED BLOOD COUNT 5.08 10^6/uL (4.00-5.40); WHITE BLOOD COUNT 9.4 10^3/uL (4.0-10.0)
[2019-01-20 18:12] LABS: INR 1.12; PROTHROMBIN TIME 14.1 SECONDS (11.8-14.0)
[2019-01-20 18:13] LABS: PARTIAL THROMBOPLASTIN TIME 33.9 SECONDS (25.0-38.4)
[2019-01-20 18:42] LABS: ALBUMIN 3.5 GM/DL (3.2-5.2); ALT/SGPT 51 U/L (12-78); BILIRUBIN,TOTAL 8.2 MG/DL (0.2-1.0); BLOOD UREA NITROGEN 8 MG/DL (7-18); CALCIUM LEVEL 9.7 MG/DL (8.5-10.1); CARBON DIOXIDE LEVEL 28 MEQ/L (21-32); CHLORIDE LEVEL 104 MEQ/L (98-107); CREATININE FOR GFR 0.75 MG/DL (0.55-1.30); GLOMERULAR FILTRATION RATE > 60.0 (>60); GLUCOSE, FASTING 64 MG/DL (70-100); POTASSIUM SERUM 4.7 MEQ/L (3.5-5.1); SODIUM LEVEL 138 MEQ/L (136-145); TOTAL PROTEIN 7.5 GM/DL (6.4-8.2)
== END ==
LOC: M LAB REF 17:18
PROVIDERS: ATTEND Internal Medicine Pulmonary Disease
DX: R17 Unspecified jaundice (principal)

== ENCOUNTER 2019-01-21 12:46 | Inpatient (IN) | payer MEDICARE, MEDICAID ==
[~2019-01-21] VITALS: Ht 165.1 cm; Wt 80.0 kg
[~2019-01-21 12:46] MED LIST changes: -EFFE37.5 PO; -EFFE75CA2 PO; -HYDR-3363 PO
[2019-01-21] MEDS ORDERED: ISOVUE-370 76% 100ML VIAL (Q9967) As Ordered ONE (13:41)
[2019-01-21] MEDS ORDERED: NS 1,000 ML IV ONE (13:45)
[2019-01-21 14:17] LABS: BASO # 0.1 10^3/uL (0.0-0.2); BASO % 0.6 % (0.0-1.0); EOS # 0.2 10^3/uL (0.0-0.5); EOS % 2.3 % (0.0-3.0); HEMATOCRIT 42.7 % (36.0-47.0); HEMOGLOBIN 13.5 g/dl (12.0-15.5); LYMPH # 0.8 10^3/uL (1.5-5.0); LYMPH % 9.5 % (24.0-44.0); MEAN CORPUSCULAR HEMOGLOBIN 27.5 pg (27.0-33.0); MEAN CORPUSCULAR HGB CONC 31.6 g/dl (32.0-36.5); MONO % 12.1 % (0.0-5.0); NEUTROPHILS # 6.2 10^3/uL (1.5-8.5); PLATELET COUNT, AUTOMATED 265 10^3/uL (150-450); RED BLOOD COUNT 4.91 10^6/uL (4.00-5.40); WHITE BLOOD COUNT 8.3 10^3/uL (4.0-10.0)
[2019-01-21 14:30] LABS: INR 1.17; PROTHROMBIN TIME 14.6 SECONDS (11.8-14.0)
[2019-01-21 14:31] LABS: PARTIAL THROMBOPLASTIN TIME 33.7 SECONDS (25.0-38.4)
[2019-01-21 14:39] LABS: ALBUMIN 3.3 GM/DL (3.2-5.2); ALT/SGPT 53 U/L (12-78); BILIRUBIN,DIRECT 4.7 MG/DL (0.0-0.2); BILIRUBIN,TOTAL 5.9 MG/DL (0.2-1.0); BLOOD UREA NITROGEN 6 MG/DL (7-18); CALCIUM LEVEL 9.7 MG/DL (8.5-10.1); CARBON DIOXIDE LEVEL 25 MEQ/L (21-32); CHLORIDE LEVEL 106 MEQ/L (98-107); CREATININE FOR GFR 0.78 MG/DL (0.55-1.30); GLOMERULAR FILTRATION RATE > 60.0 (>60); GLUCOSE, FASTING 75 MG/DL (70-100); LIPASE 189 U/L (73-393); POTASSIUM SERUM 4.4 MEQ/L (3.5-5.1); SODIUM LEVEL 139 MEQ/L (136-145)
--- NOTE | 2019-01-21 14:59 | REP ---
CT abdomen and pelvis with IV but without oral contrast: History: Jaundice. Comparison CT study of the chest is from January 14, 2019. CT contrast dose: 100 mL of intravenous Isovue 370 is administered. Findings: Preliminary digital technical marketing consultant radiograph is unremarkable. The uppermost CT slices again demonstrate the bilateral hilar and mediastinal lymphadenopathy seen on chest CT. There is no evidence of infiltrate or pleural effusion. The spleen is near the upper range of normal in size measuring 11.8 cm in greatest diameter. No focal splenic lesion is seen. No adrenal lesion is observed. No pancreatic mass is observed. There is moderate intrahepatic and extrahepatic biliary ductal dilation. The common bile duct measures up to 12.5 mm in diameter. There is a subtle nodular hyperdensity in the distal choledochous raising question of choledocholithiasis. No other evidence of filling defect within the biliary tree. Gallbladder wall thickening is again noted. No pericholecystic fluid is seen. There is a 1.1 cm right lobe liver lesion which may be hemangioma. No pancreatic cyst or mass is observed. No upper abdominal adenopathy is appreciated. Kidneys enhance symmetrically are morphologically intact. Small and large intestinal bowel loops are normal in the abdomen and pelvis. There is a large cystic lesion in the pelvis superior to the uterus spanning the pelvis from right to left. The left ovary is not separately identified. A right ovary is felt to be seen laterally adjacent to this process. This cystic lesion measures 10.8 x 8.9 x 5.7 cm. There is no evidence of diffuse ascites. No evidence of pelvic adenopathy. No abdominal wall defect or bony destructive lesion. Impression: 1. Evidence of extrahepatic biliary obstruction with moderate intrahepatic and extrahepatic bile duct dilation. Question choledocholithiasis. Gallbladder wall thickening. 2. There is a 10.8 cm cystic mass in the pelvis likely ovarian in origin. The left ovary is not separately identifiable. Benign and malignant cystic neoplasms are in the differential. 3. Bilateral hilar and mediastinal lymphadenopathy again seen. Borderline size spleen. Electronically Signed by Narayan Copeland MD 01/21/2019 05:21 P
--- NOTE | 2019-01-21 15:59 | REP ---
Pelvic sonography: History: Mass in pelvis. Question ovarian. Comparison is made with today's CT study showing a 10.8 cm cystic lesion in the pelvis. Sonographic findings: Transabdominal scanning is performed. Visualized bladder rodriguez are smooth. Uterine dimensions are normal measured at 7.7 x 3.5 x 4.8 cm. Endometrial echo 0.5 cm thick and centrally placed. A normal right ovary is seen measuring 1.9 x 1.4 x 2.1 cm. Its Doppler flow is normal, resistive index 0.58. There is a large hypoechoic cystic lesion in the left adnexa with septations and low level internal echoes, by ultrasound measuring 8.3 x 6.0 x 11.0 cm. Very little normal appearing ovarian tissue is seen. No free fluid is seen. Impression: The large pelvic cystic lesion appears to be left ovarian in origin. It shows some septations and low level internal echoes, but is otherwise largely anechoic. No free fluid seen. Normal right ovary and uterus. Electronically Signed by Narayan Copeland MD 01/21/2019 05:22 P
[2019-01-21] MEDS ORDERED: MAALOX 30 ML SUSP *UDC PO PRN (18:00)
[2019-01-21] MEDS ORDERED: MOM 30ML SUSPENSION UDC PO PRN (18:00)
--- NOTE | 2019-01-21 18:02 | HPEPDOC ---
General Date of Admission 01/21/19 Date of Service: Jan 21, 2019 Chief Complaint The patient is a 28-year-old female admitted with a reason for visit of Abnormal Labs. Source: Patient Exam Limitations: No limitations Timing/Duration: Other Severity: Moderate Associated Symptoms: Loss of appetite, Malaise, Other History of Present Illness . This is 28 years old female with past medical history of depression, anxiety, seizure, allergies, seizures, urinary urgency, dysuria, localized idiopathic epilepsy, bipolar disorder, constipation. Was called from the clinic when she follows up and was told her bilirubin is 8.2, and come to ER. Patient complaining of generalized fatigue, malaise, loss of appetite, body aches since last few days. As you vomiting, fever, dizziness, syncope, abdominal pain, nausea, vomiting Home Medications Scheduled Aripiprazole (Aripiprazole) 10 Mg Tab, 10 MG PO QAM for MOOD Buspirone HCl (Buspirone HCl) 7.5 Mg Tablet, 7.5 MG PO BID, (Reported) Cholecalciferol (Vitamin D3) (Vitamin D3) 2,000 Unit Cap, 2,000 UNIT PO DAILY, (Reported) Ethinyl Estradiol/Drospirenone (Shakila 3 mg-0.02 mg Tablet) 1 Tab Tab, 1 TAB PO DAILY, (Reported) Hydroxyzine HCl (Hydroxyzine HCl) 50 Mg Tab, 50 MG PO BID for ANXIETY/AGITATION Lamotrigine (Lamotrigine) 200 Mg Tab, 200 MG PO BID, (Reported) Loratadine (Loratadine) 10 Mg Tab, 10 MG PO QHS, (Reported) Venlafaxine HCl (Venlafaxine HCl ER) 75 Mg Capcr, 75 MG PO DAILY for MOOD Venlafaxine HCl (Venlafaxine HCl ER) 37.5 Mg Capcr, 37.5 MG PO DAILY for MOOD Scheduled PRN Acetaminophen (Acetaminophen) 500 Mg Tab, 1,000 MG PO for PAIN, (Reported) Allergies Coded Allergies: SEASONAL ALLERGIES (Verified Allergy, Unknown, 01/14/19) Past Medical History Medical History Depression, anxiety, seasonal allergies, seizures, urinary urgency, dysuria, idiopathic epilepsy, bipolar disorder, constipation Surgical History None Family History Significant Family History: No pertinent family hx Social History * Smoker: non-smoker Alcohol: Denies Drugs: denies A-FIB/CHADSVASC A-FIB History Current/History of A-Fib/PAF?: No Review of Systems Constitutional: Reports: Malaise, Weakness, Fatigue Eyes: Denies: Pain, Vision change, Conjunctivae inflammation, Eyelid inflammation, Redness, Other ENT: Denies: Head Aches, Ear Pain, Dysphagia, Sinus Congestion, Post Nasal Drip, Sore Throat, Epistaxis, Other Symptoms Skin: Denies: Rash, Lesions, Jaundice, Bruising, Itching, Dry, Breakdown, Nail Changes, Other Pulmonary: Denies: Dyspnea, Cough, Pleuritic Chest Pain, Other Symptoms Cardiovascular: Denies: Chest Pain, Palpitations, Orthopnea, Paroxysmal Noc. Dyspnea, Edema, Lt Headedness, Other Symptoms Gastrointestinal: Denies: Nausea, Vomiting, Abdominal Pain, Diarrhea, Constipation, Melena, Hematochezia, Other Symptoms Genitourinary: Denies: Dysuria, Frequency, Incontinence, Hematuria, Retention, Other Symptoms Hematologic: Denies: Bruising, Bleeding Excessively, Petecchia, Purpura, Enlarged Lymph Nodes, Other Hematologic Endocrine: Denies: Polydipsia, Polyphagia, Polyuria, Heat Intolerance, Cold Intolerance, Other Endocrine Sx Musculoskeletal: Denies: Neck Pain, Back Pain, Shoulder Pain, Arm Pain, Hand Pain, Leg Pain, Foot Pain, Joint Pain, Muscle Pain, Spasms, Other Symptoms Neurological: Denies: Weakness, Numbness, Incoordination, Change in speech, Confusion, Seizures, Other Symptoms Psych: Denies: Mood Normal, Anxiety, Depression, Memory Issues, Thoughts of Self Harm, Anger, Thoughts of Harming Other, Other Psych Physical Examination General Exam: Positive: Alert, Cooperative Eye Exam: Positive: PERRLA ENT Exam: Positive: Atraumatic Neck Exam: Positive: Supple Chest Exam: Positive: Clear to auscultation, Normal air movement Heart Exam: Positive: Rate Normal, Normal S1, Normal S2 Abdomen Exam: Positive: Normal bowel sounds, Soft Extremity Exam: Positive: Normal pulses Skin Exam: Positive: Nl turgor and temperature Neuro Exam: Positive: Strength at 5/5 X4 ext, Sensation Intact, Cranial Nerves 3-12 NL Psych Exam: Positive: Mood NL, Oriented x 3 Vital Signs Vital Signs Date Time Temp Pulse Resp B/P (MAP) Pulse Ox O2 Delivery O2 Flow Rate FiO2 01/21/19 13:13 01/21/19 12:47 96.3 80 20 96 Room Air Laboratory Data Labs 24H Laboratory Tests 2 01/21/19 14:01: Immature Granulocyte % (Auto) 0.5, Neutrophils (%) (Auto) 75.0H, Lymphocytes (%) (Auto) 9.5L, Monocytes (%) (Auto) 12.1H, Eosinophils (%) (Auto) 2.3, Basophils (%) (Auto) 0.6, Neutrophils # (Auto) 6.2, Lymphocytes # (Auto) 0.8L, Monocytes # (Auto) 1.0H, Eosinophils # (Auto) 0.2, Basophils # (Auto) 0.1, Nucleated Red Blood Cells % (auto) 0.0, Prothrombin Time 14.6H, Prothromb Time International Ratio 1.17, Activated Partial Thromboplast Time 33.7, Urine Color BING, Urine Appearance CLEAR, Urine pH 6.0, Urine Specific [place] 1.056, Urine Protein 1+H, Urine Glucose (UA) NEGATIVE, Urine Ketones TRACEH, Urine Blood 2+H, Urine Nitrite NEGATIVE, Urine Bilirubin 2+H, Urine Urobilinogen 4.0H, Urine Leukocyte Esterase NEGATIVE, Urine WBC (Auto) 4H, Urine RBC (Auto) 1, Urine Hyaline Casts (Auto) 2, Urine Bacteria (Auto) NEGATIVE, Urine Squamous Epithelial Cells 2, Urine Mucus (Auto) SMALL, Urine Sperm (Auto) , Anion Gap 8, Glomerular Filtration Rate > 60.0, Lactic Acid Level 1.3, Calcium Level 9.7, Total Bilirubin 5.9H, Direct Bilirubin 4.7H, Aspartate Amino Transf (AST/SGOT) 37, Alanine Aminotransferase (ALT/SGPT) 53, Alkaline Phosphatase 351H, Total Protein 7.0, Albumin 3.3, Albumin/Globulin Ratio 0.89L, Lipase 189 CBC/BMP Laboratory Tests 01/21/19 14:01 Problems (1) Choledocholithiasis with obstruction Status: Acute Problem Text: 28 years old female with past medical history of multiple medical problems including depression, anxiety, bipolar disorder, seasonal allergies, urinary urgency, dysuria, idiopathic epilepsy and constipation. Was informed by her clinic when she follows up that her total bilirubin was 8.2 and was told to go to ER. Patient complaining of generalized body aches, pains, malaise, tiredness and loss of appetite last few days but no abdominal pain, nausea, vomiting or diarrhea. On 0.17, total bilirubin 5.9, direct bilirubin 4.7, alkaline phosphate of 3.51. CBC, CMP are essentially within normal limits. Patient had a CT abdomen and pelvis done which shows extrahepatic biliary obstruction, most likely colon due to choledocholithiasis. Also pelvic sonogram was done which showed 2 large pelvic cystic lesion on the left side. Admit patient to the medical floor Nothing by mouth except meds IV fluid normal saline 100 mL per hour Protonix 40 mg IV every 24 hours DVT prophylaxis with bilateral SCDs Hold home macario Mathews was called from ED and he will see patient tomorrow for possible ERCP Repeat blood work for tomorrow morning. He has been ordered along with acute he patitis profile Further, as per GIs recommendations 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: Patient was found to have a large pelvic cystic lesion on left side with ovarian area. Dr. Salazar was called from ED and he will see patient tomorrow for consultation Further, as per TRAINING MANAGER. Recommendations Plan / VTE VTE Prophylaxis Ordered?: Yes JORGE ANDREA MD Jan 21, 2019 18:02
[2019-01-21] MEDS ORDERED: EFFE75CA2 PO (18:07)
[2019-01-21] MEDS ORDERED: EFFE37.5 PO (18:07)
[2019-01-21] MEDS ORDERED: ARIP1TAB PO (18:07)
[2019-01-21] MEDS ORDERED: HYDR-3363 PO (18:08)
[2019-01-21] MEDS: NS 1,000 ML IV SCH (18:27)
[2019-01-21] MEDS: PANTOPRAZOLE 40MG INJ (PROTONIX) (C9113) IV SCH (18:28)
[2019-01-21 19:25] VITALS: BP 113/63
[2019-01-21] MEDS: DOCUSATE SODIUM 100 MG CAP PO SCH (20:49)
[2019-01-22] MEDS: NS 1,000 ML IV SCH ×3 (04:00→23:23)
[2019-01-22 06:00] VITALS: BP 102/60
[2019-01-22 07:20] LABS: HEMOGLOBIN 12.3 g/dl (12.0-15.5); MEAN CORPUSCULAR HEMOGLOBIN 27.1 pg (27.0-33.0); MEAN CORPUSCULAR HGB CONC 32.4 g/dl (32.0-36.5); MEAN CORPUSCULAR VOLUME 83.7 fl (80.0-96.0); PLATELET COUNT, AUTOMATED 236 10^3/uL (150-450); RED BLOOD COUNT 4.54 10^6/uL (4.00-5.40)
[2019-01-22 07:42] LABS: ALBUMIN 2.6 GM/DL (3.2-5.2); ALT/SGPT 49 U/L (12-78); BILIRUBIN,TOTAL 3.9 MG/DL (0.2-1.0); BLOOD UREA NITROGEN 4 MG/DL (7-18); CALCIUM LEVEL 8.8 MG/DL (8.5-10.1); CARBON DIOXIDE LEVEL 25 MEQ/L (21-32); CHLORIDE LEVEL 110 MEQ/L (98-107); CREATININE FOR GFR 0.57 MG/DL (0.55-1.30); GLOMERULAR FILTRATION RATE > 60.0 (>60); GLUCOSE, FASTING 92 MG/DL (70-100); MAGNESIUM LEVEL 2.1 MG/DL (1.8-2.4); POTASSIUM SERUM 3.6 MEQ/L (3.5-5.1); SODIUM LEVEL 141 MEQ/L (136-145); TOTAL PROTEIN 6.7 GM/DL (6.4-8.2)
[2019-01-22] MEDS: DOCUSATE SODIUM 100 MG CAP PO SCH ×2 (09:00→20:37)
--- NOTE | 2019-01-22 10:56 | IPNPDOC ---
Subjective Date Seen The patient was seen on 01/22/19. Subjective Chief Complaint/HPI Patient offers no new complaints. No abdominal pain, no nausea, vomiting General: Denies: ROS Unobtainable, Chills, Night Sweats, Fatigue, Malaise, Normal Appetite, Other Symptoms Constitutional: Denies: Chills, Fever, Malaise, Night Sweats, Weakness, Fatigue, Weight Loss, Lethargy, Other Skin: Denies: Rash, Lesions, Jaundice, Bruising, Itching, Dry, Breakdown, Nail Changes, Other Pulmonary: Denies: Dyspnea, Cough, Pleuritic Chest Pain, Other Symptoms Cardiovascular: Denies: Chest Pain, Palpitations, Orthopnea, Paroxysmal Noc. D yspnea, Edema, Lt Headedness, Other Symptoms Gastrointestinal: Denies: Nausea, Vomiting, Abdominal Pain, Diarrhea, Constipation, Melena, Hematochezia, Other Symptoms Musculoskeletal: Denies: Neck Pain, Back Pain, Shoulder Pain, Arm Pain, Hand Pain, Leg Pain, Foot Pain, Joint Pain, Muscle Pain, Spasms, Other Symptoms Neurological: Denies: Weakness, Numbness, Incoordination, Change in speech, Confusion, Seizures, Other Symptoms Objective Physical Examination ENT Exam: Positive: Atraumatic Neck Exam: Positive: Supple Chest Exam: Positive: Clear to auscultation, Normal air movement Heart Exam: Positive: Rate Normal, Normal S1, Normal S2 Abdomen Exam: Positive: Normal bowel sounds, Soft Extremity Exam: Positive: Normal pulses Skin Exam: Positive: Nl turgor and temperature Neuro Exam: Positive: Strength at 5/5 X4 ext, Sensation Intact, Cranial Nerves 3-12 NL Assessment /Plan Problems (1) Choledocholithiasis with obstruction Status: Acute Problem Text: Patient is completely asymptomatic , Total bilirubin is 3.9, now CBC, CMP essentially within normal limits And by mouth from midnight EGD, ERCP in a.m. 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 Plan/VTE VTE Prophylaxis Ordered?: Yes VS, I&O, 24H, Fishbone Vital Signs/I&O Vital Signs Date Time Temp Pulse Resp B/P (MAP) Pulse Ox O2 Delivery O2 Flow Rate FiO2 01/22/19 06:00 97.1 68 18 102/60 (74) 97 Room Air I&O- Last 24 Hours up to 6 AM 01/22/19 06:00 Intake Total 2395 ml Balance 2395 ml Laboratory Data 24H LABS Laboratory Tests 2 01/21/19 14:01: Immature Granulocyte % (Auto) 0.5, Neutrophils (%) (Auto) 75.0H, Lymphocytes (%) (Auto) 9.5L, Monocytes (%) (Auto) 12.1H, Eosinophils (%) (Auto) 2.3, Basophils (%) (Auto) 0.6, Neutrophils # (Auto) 6.2, Lymphocytes # (Auto) 0.8L, Monocytes # (Auto) 1.0H, Eosinophils # (Auto) 0.2, Basophils # (Auto) 0.1, Nucleated Red Blood Cells % (auto) 0.0, Prothrombin Time 14.6H, Prothromb Time International Ratio 1.17, Activated Partial Thromboplast Time 33.7, Urine Color BING, Urine Appearance CLEAR, Urine pH 6.0, Urine Specific [place] 1.056, Urine Protein 1+H, Urine Glucose (UA) NEGATIVE, Urine Ketones TRACEH, Urine Blood 2+H, Urine Nitrite NEGATIVE, Urine Bilirubin 2+H, Urine Urobilinogen 4.0H, Urine Leukocyte Esterase NEGATIVE, Urine WBC (Auto) 4H, Urine RBC (Auto) 1, Urine Hyaline Casts (Auto) 2, Urine Bacteria (Auto) NEGATIVE, Urine Squamous Epithelial Cells 2, Urine Mucus (Auto) SMALL, Urine Sperm (Auto) , Anion Gap 8, Glomerular Filtration Rate > 60.0, Lactic Acid Level 1.3, Calcium Level 9.7, Total Bilirubin 5.9H, Direct Bilirubin 4.7H, Aspartate Amino Transf (AST/SGOT) 37, Alanine Aminotransferase (ALT/SGPT) 53, Alkaline Phosphatase 351H, Total Protein 7.0, Albumin 3.3, Albumin/Globulin Ratio 0.89L, Lipase 189 01/22/19 06:52: Nucleated Red Blood Cells % (auto) 0.0, Anion Gap 6L, Glomerular Filtration Rate > 60.0, Calcium Level 8.8, Total Bilirubin 3.9H, Aspartate Amino Transf (AST/SGOT) 31, Alanine Aminotransferase (ALT/SGPT) 49, Alkaline Phosphatase 299H, Total Protein 6.7, Albumin 2.6#L, Albumin/Globulin Ratio 0.63L, Magnesium Level 2.1 CBC/BMP Laboratory Tests 01/21/19 14:01 01/22/19 06:52 JORGE ANDREA MD Jan 22, 2019 10:56
[2019-01-22 14:00] VITALS: BP 113/75
[2019-01-22] MEDS: hydrOXYzine 25 MG TAB PO SCH ×2 (15:03→20:48)
[2019-01-22] MEDS: PANTOPRAZOLE 40MG INJ (PROTONIX) (C9113) IV SCH (17:12)
[2019-01-22 20:53] VITALS: BP 118/74
[2019-01-23 05:05] VITALS: BP 118/67
[2019-01-23] MEDS: DOCUSATE SODIUM 100 MG CAP PO SCH ×2 (08:10→22:03)
[2019-01-23 08:14] LABS: ALBUMIN 2.9 GM/DL (3.2-5.2); ALT/SGPT 58 U/L (12-78); BILIRUBIN,TOTAL 2.6 MG/DL (0.2-1.0); BLOOD UREA NITROGEN 3 MG/DL (7-18); CALCIUM LEVEL 9.1 MG/DL (8.5-10.1); CARBON DIOXIDE LEVEL 26 MEQ/L (21-32); CHLORIDE LEVEL 108 MEQ/L (98-107); CREATININE FOR GFR 0.56 MG/DL (0.55-1.30); GLOMERULAR FILTRATION RATE > 60.0 (>60); GLUCOSE, FASTING 96 MG/DL (70-100); LIPASE 343 U/L (73-393); POTASSIUM SERUM 3.8 MEQ/L (3.5-5.1); SODIUM LEVEL 141 MEQ/L (136-145); TOTAL PROTEIN 7.4 GM/DL (6.4-8.2)
[2019-01-23] MEDS: hydrOXYzine 25 MG TAB PO SCH ×3 (08:19→21:51)
[2019-01-23] MEDS: NS 1,000 ML IV SCH ×2 (10:35→23:16)
--- NOTE | 2019-01-23 10:44 | IPNPDOC ---
Subjective Date Seen The patient was seen on 01/23/19. Subjective Chief Complaint/HPI Patient much comfortable, yellowish discoloration is dissipating General: Denies: ROS Unobtainable, Chills, Night Sweats, Fatigue, Malaise, Normal Appetite, Other Symptoms Constitutional: Denies: Chills, Fever, Malaise, Night Sweats, Weakness, Fatigue, Weight Loss, Lethargy, Other Pulmonary: Denies: Dyspnea, Cough, Pleuritic Chest Pain, Other Symptoms Cardiovascular: Denies: Chest Pain, Palpitations, Orthopnea, Paroxysmal Noc. Dyspnea, Edema, Lt Headedness, Other Symptoms Gastrointestinal: Denies: Nausea, Vomiting, Abdominal Pain, Diarrhea, Constipation, Melena, Hematochezia, Other Symptoms Musculoskeletal: Denies: Neck Pain, Back Pain, Shoulder Pain, Arm Pain, Hand Pain, Leg Pain, Foot Pain, Joint Pain, Muscle Pain, Spasms, Other Symptoms Neurological: Denies: Weakness, Numbness, Incoordination, Change in speech, Confusion, Seizures, Other Symptoms Objective Physical Examination ENT Exam: Positive: Atraumatic Neck Exam: Positive: Supple Chest Exam: Positive: Clear to auscultation, Normal air movement Heart Exam: Positive: Rate Normal, Normal S1, Normal S2 Abdomen Exam: Positive: Normal bowel sounds, Soft Extremity Exam: Positive: Normal pulses Skin Exam: Positive: Nl turgor and temperature Neuro Exam: Positive: Strength at 5/5 X4 ext, Sensation Intact, Cranial Nerves 3-12 NL Assessment /Plan Problems (1) Choledocholithiasis with obstruction Status: Acute Problem Text: Patient is completely asymptomatic , Total bilirubin is 2.6 today CBC, CMP essentially within normal limits Is scheduled for EGD and ERCP today If everything goes as planned possible discharge in a.m. 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 Plan/VTE VTE Prophylaxis Ordered?: Yes VS, I&O, 24H, Fishbone Vital Signs/I&O Vital Signs Date Time Temp Pulse Resp B/P (MAP) Pulse Ox O2 Delivery O2 Flow Rate FiO2 01/23/19 05:05 96.9 66 18 118/67 (84) 97 Room Air I&O- Last 24 Hours up to 6 AM 01/23/19 06:00 Intake Total 3960 ml Output Total 375 ml Balance 3585 ml Laboratory Data 24H LABS Laboratory Tests 2 01/23/19 07:42: Anion Gap 7L, Glomerular Filtration Rate > 60.0, Calcium Level 9.1, Total Bilirubin 2.6H, Aspartate Amino Transf (AST/SGOT) 32, Alanine Aminotransferase (ALT/SGPT) 58, Alkaline Phosphatase 312H, Total Protein 7.4, Albumin 2.9L, Albumin/Globulin Ratio 0.64L, Lipase 343 CBC/BMP Laboratory Tests 01/23/19 07:42 JORGE ANDREA MD Jan 23, 2019 10:44
--- NOTE | 2019-01-23 11:28 | CR ---
DATE OF CONSULTATION: 01/23/2019 This is a 28-year-old white female who has been admitted to [facility] for evaluation of an elevated bilirubin of 8.2 and generalized fatigue, malaise or loss of appetite, body aches. The patient has a past medical history of bipolar disorder and seizure. She has also associated history of depression and anxiety. She is on Abilify, BuSpar, vitamin D, hydroxyzine, venlafaxine, loratadine and Lamictal. The patient has seasonal allergies. PAST MEDICAL HISTORY: Is as above. SURGERIES: None. SOCIAL HISTORY: Cigarettes, alcohol, drugs negative. REVIEW OF SYSTEMS: Noncontributory to above problems. PHYSICAL EXAMINATION: GENERAL: Well-developed, well-nourished white female in no acute distress. Appears stated age. CHEST: Clear to auscultation. CARDIOVASCULAR EXAM: Showed regular rhythm. No murmurs or gallops. Normal physiological split, S1 and S2. ABDOMEN: Soft, nontender. No masses, guarding, rebound, hepatosplenomegaly, bowel sounds positive. LABORATORY STUDIES: On admission her white count was 8300, hemoglobin and hematocrit of 13.5, hematocrit 42.7, platelets 165,000. INR was 1.17. The patient's chemistry was 5.9 on 01/21/2019, AST and ALT were normal. Alkaline phosphatase was 351. Lipase was normal. The patient had an abdominal CT 01/21 which showed intra and extrahepatic biliary dilatation with choledocholithiasis, gallbladder wall thickening, a 0.87 cm cystic mass in the left ovary and there was bilateral hilar mediastinal lymphadenopathy previously seen, which is being followed up by pulmonary. ANALYSIS: Abnormal liver functions, possible choledocholithiasis, abnormal imaging. Recommendation at the present time would be to set the patient up for an ERCP with papillotomy balloon sweep for possible choledocholithiasis. This has been discussed with the patient's mother and informed consent was given to the mom.
[2019-01-23 12:14] LABS: HEPATITIS B SURFACE ANTIGEN NEGATIVE (NEGATIVE)
[2019-01-23 12:32] LABS: CA 125 12.1 U/ML (<30.2)
[2019-01-23 12:41] LABS: HEPATITIS B CORE ANTIBODY IGM NEGATIVE (NEGATIVE)
[2019-01-23 12:44] LABS: HEPATITIS A ANTIBODY IGM NEGATIVE (NEGATIVE)
[2019-01-23] MEDS ORDERED: ROCURONIUM BROMIDE 50 MG/5 ML VIAL As Ordered ONE (13:57)
[2019-01-23] MEDS ORDERED: LIDOCAINE 2% INJ 100 MG/5 ML SDV (FOR ANES.) As Ordered ONE (13:57)
[2019-01-23] MEDS ORDERED: PROPOFOL 200 MG/20 ML VIAL As Ordered ONE (13:57)
[2019-01-23] MEDS ORDERED: MIDAZOLAM INJ 2 MG/2 ML VIAL (J2250) As Ordered ONE (13:57)
[2019-01-23] MEDS ORDERED: fentaNYL 100 MCG/2 ML INJECTION (J3010) As Ordered ONE ×2 (13:58→17:33)
[2019-01-23] MEDS ORDERED: CONRAY-60 60% 50ML VIAL (Q9961) As Ordered ONE (14:03)
[2019-01-23] MEDS ORDERED: ISOVUE-300 61% 50ML VIAL (Q9967) As Ordered ONE ×2 (14:21→18:24)
[2019-01-23] MEDS ORDERED: ONDANSETRON 4MG/2ML VIAL (J2405) As Ordered ONE (17:35)
[2019-01-23] MEDS ORDERED: dexameTHASONE 4 MG/ML 1ML VIAL (J1100) As Ordered ONE (17:35)
[2019-01-23] MEDS ORDERED: DESFLURANE 240 ML INHALANT As Ordered ONE (17:49)
[2019-01-23] MEDS ORDERED: SUGAMMADEX SODIUM 500 MG/5 ML VIAL (BRIDION) As Ordered ONE (18:00)
--- NOTE | 2019-01-23 19:29 | REP ---
ERCP: 49 views. History: ERCP. Intraprocedural imaging. 11 minutes and 7 seconds of fluoroscopy time is reported. Findings: A sequence of 49 last image hold fluoroscopically obtained spot radiographs of the right upper abdomen document cannulation and contrast injection of the biliary tract with evidence of choledocholithiasis and balloon catheter manipulation. Common bile duct stent catheter was placed. Electronically Signed by Narayan Copeland MD 01/23/2019 07:54 P
[2019-01-23] MEDS ORDERED: ONDANSETRON 4MG/2ML VIAL (J2405) IV PRN (19:30)
[2019-01-23] MEDS ORDERED: fentaNYL 100 MCG/2 ML INJECTION (J3010) IV PRN (19:30)
[2019-01-23] MEDS ORDERED: PERCOCET 5MG/325MG TAB PO PRN (19:30)
[2019-01-23] MEDS ORDERED: LR 1,000 ML IV SCH (19:30)
--- NOTE | 2019-01-23 19:39 | ROOR ---
Patient Name: Odilia Delvalle Procedure Date: 01/23/2019 2:14 PM Date of : 1990 Age: 28 Room: Main OR Gender: Female Note Status: Finalized Procedure: ERCP + Papillotomy + Balloon Sweep + Lithotripsy Indications: Abdominal pain of suspected biliary origin, Abnormal abdominal CT, Biliary dilation on Computed Tomogram Scan, Bile duct stone on Computed Tomogram Scan, Elevated bilirubin, Elevated alkaline phosphatase Providers: Gregorio Mathews MD Referring MD: 2. Inpatient 2. Inpatient, [place] [facility] Alizasejeff Requesting Provider: Medicines: General Anesthesia Complications: No immediate complications. Procedure: Pre-Anesthesia Assessment: - The heart rate, respiratory rate, oxygen saturations, blood pressure, adequacy of pulmonary ventilation, and response to care were monitored throughout the procedure. The Duodenoscope was introduced through the mouth, and advanced to the duodenum and used to inject contrast into the bile duct. The ERCP was accomplished without difficulty. The patient tolerated the procedure well. Findings: The upper GI tract was traversed under direct vision without detailed examination. The major papilla was normal. The bile duct was deeply cannulated with the short-nosed traction sphincterotome. Contrast was injected. I personally interpreted the bile duct images. Ductal flow of contrast was adequate. Image quality was adequate. Contrast extended to the entire biliary tree. The entire biliary tree was markedly dilated, acquired. The upper third of the main bile duct contained one stone. A short 0.035 inch Soft Jagwire was passed into the biliary tree. Biliary sphincterotomy was made with a monofilament traction (standard) sphincterotome using ERBE electrocautery. There was no post-sphincterotomy bleeding. Lithotripsy with a basket-type device was successful. The biliary tree was swept with a 12 mm balloon starting at the bifurcation. All stones were removed. One 10 Fr by 7 cm plastic stent was placed into the common bile duct. Bile flowed through the stent. The stent was in good position. The ventral pancreatic duct was deeply cannulated with the short-nosed traction sphincterotome. Contrast was injected. Opacification of the entire pancreatic ductal system was successful. The entire opacified area was normal. Impression: - The entire biliary tree was markedly dilated, acquired. - Choledocholithiasis was found. Complete removal was accomplished by biliary sphincterotomy and balloon extraction. - A biliary sphincterotomy was performed. - Lithotripsy was successful. - The biliary tree was swept. - One plastic stent was placed into the common bile duct. - The examination was otherwise normal. Recommendation: - [facility] to [facility] care. - Continue present medications. - Avoid aspirin and nonsteroidal anti-inflammatory medicines for 2 weeks. - Watch for pancreatitis, bleeding, perforation, and cholangitis. - The findings and recommendations were discussed with the patient's family. Gregorio Mathews MD Gregorio Mathews MD 01/23/2019 7:39:43 PM Electronically signed by Gregorio Mathews MD Number of Addenda: 0 Note Initiated On: 01/23/2019 2:14 PM Estimated Blood Loss: Estimated blood loss: none.
[2019-01-23 20:00] VITALS: BP 117/78
[2019-01-23 20:30] VITALS: BP 123/72
[2019-01-23] MEDS ORDERED: VENLAFAXINE **XR** 75MG CAPSULE PO SCH (21:00)
[2019-01-23] MEDS ORDERED: ARIPiprazole 10 MG TAB PO SCH (21:00)
[2019-01-23 21:30] VITALS: BP 127/75
[2019-01-23] MEDS: ONDANSETRON 4MG/2ML VIAL (J2405) IV PRN (21:50)
[2019-01-23] MEDS: PANTOPRAZOLE 40MG INJ (PROTONIX) (C9113) IV SCH (21:50)
[2019-01-23] MEDS: busPIRone 5 MG TAB PO SCH (21:50)
[2019-01-23] MEDS: lamoTRIgine 100MG TAB PO SCH (21:51)
[2019-01-23 22:30] VITALS: BP 105/56
[2019-01-23 23:30] VITALS: BP 124/73
[2019-01-24 00:30] VITALS: BP 113/78
[2019-01-24] MEDS: ONDANSETRON 4MG/2ML VIAL (J2405) IV PRN ×2 (02:55→07:04)
[2019-01-24] MEDS: MORPHINE 2 MG/ML 1ML VIAL (J2270) IV PRN ×2 (02:56→07:04)
[2019-01-24 04:30] VITALS: BP 117/71
[2019-01-24 06:46] LABS: BASO % 0.2 % (0.0-1.0); EOS # 0.2 10^3/uL (0.0-0.5); EOS % 1.7 % (0.0-3.0); HEMATOCRIT 40.2 % (36.0-47.0); MEAN CORPUSCULAR HEMOGLOBIN 27.5 pg (27.0-33.0); MEAN CORPUSCULAR HGB CONC 32.3 g/dl (32.0-36.5); MEAN CORPUSCULAR VOLUME 85.2 fl (80.0-96.0); MONO # 0.9 10^3/uL (0.0-0.8); MONO % 8.5 % (0.0-5.0); NEUTROPHILS # 7.9 10^3/uL (1.5-8.5); NEUTROPHILS % 79.2 % (36.0-66.0); PLATELET COUNT, AUTOMATED 301 10^3/uL (150-450); RED BLOOD COUNT 4.72 10^6/uL (4.00-5.40)
[2019-01-24 07:11] LABS: ALBUMIN 2.7 GM/DL (3.2-5.2); ALT/SGPT 75 U/L (12-78); BILIRUBIN,TOTAL 2.2 MG/DL (0.2-1.0); BLOOD UREA NITROGEN 5 MG/DL (7-18); CALCIUM LEVEL 8.9 MG/DL (8.5-10.1); CARBON DIOXIDE LEVEL 25 MEQ/L (21-32); CHLORIDE LEVEL 109 MEQ/L (98-107); CREATININE FOR GFR 0.59 MG/DL (0.55-1.30); GLOMERULAR FILTRATION RATE > 60.0 (>60); GLUCOSE, FASTING 80 MG/DL (70-100); LIPASE 2508 U/L (73-393); POTASSIUM SERUM 3.8 MEQ/L (3.5-5.1); SODIUM LEVEL 141 MEQ/L (136-145); TOTAL PROTEIN 5.8 GM/DL (6.4-8.2)
[2019-01-24 08:30] VITALS: BP 111/67
[2019-01-24] MEDS: ACETAMINOPHEN TAB 650MG DOSE (2X325MG) PO PRN ×3 (08:49→20:14)
[2019-01-24] MEDS: hydrOXYzine 25 MG TAB PO SCH ×3 (08:49→20:13)
[2019-01-24] MEDS: ARIPiprazole 10 MG TAB PO SCH (08:49)
[2019-01-24] MEDS: VENLAFAXINE **XR** 75MG CAPSULE PO SCH (08:49)
[2019-01-24] MEDS: VITAMIN D 1,000 INTERNATIONAL UNITS TABLET PO SCH (08:49)
[2019-01-24] MEDS: lamoTRIgine 100MG TAB PO SCH ×2 (08:49→20:13)
[2019-01-24] MEDS: busPIRone 5 MG TAB PO SCH ×2 (08:49→20:13)
[2019-01-24] MEDS: DOCUSATE SODIUM 100 MG CAP PO SCH ×3 (08:49→20:14)
--- NOTE | 2019-01-24 09:42 | IPNPDOC ---
Subjective Date Seen The patient was seen on 01/24/19. Subjective Chief Complaint/HPI Patient is complaining of pain in her abdomen had been receiving morphine for pain and Zofran for nausea, vomiting. Has decreased appetite at the present time General: Reports: Other Symptoms (, decreased appetite); Denies: ROS Unobtainable, Chills, Night Sweats, Fatigue, Malaise, Normal Appetite Skin: Denies: Rash, Lesions, Jaundice, Bruising, Itching, Dry, Breakdown, Nail Changes, Other Pulmonary: Denies: Dyspnea, Cough, Pleuritic Chest Pain, Other Symptoms Cardiovascular: Denies: Chest Pain, Palpitations, Orthopnea, Paroxysmal Noc. Dyspnea, Edema, Lt Headedness, Other Symptoms Gastrointestinal: Reports: Nausea, Abdominal Pain Musculoskeletal: Denies: Neck Pain, Back Pain, Shoulder Pain, Arm Pain, Hand Pain, Leg Pain, Foot Pain, Joint Pain, Muscle Pain, Spasms, Other Symptoms Neurological: Denies: Weakness, Numbness, Incoordination, Change in speech, Confusion, Seizures, Other Symptoms Objective Physical Examination ENT Exam: Positive: Atraumatic Neck Exam: Positive: Supple Chest Exam: Positive: Clear to auscultation, Normal air movement Heart Exam: Positive: Rate Normal, Normal S1, Normal S2 Abdomen Exam: Positive: Normal bowel sounds, Tenderness (, mild tenderness at the epigastric area) Extremity Exam: Positive: Normal pulses Skin Exam: Positive: Nl turgor and temperature Neuro Exam: Positive: Strength at 5/5 X4 ext, Sensation Intact, Cranial Nerves 3-12 NL Assessment /Plan Problems (1) Choledocholithiasis with obstruction Status: Acute Problem Text: Patient is completely asymptomatic , Status post ERCP with removal of the stones from bile duct with a lithotripsy Patient is slightly elevated lipase 2508, which is expected after the procedure , But she does complain of some pain, which again is expected postop To the morphine and Zofran as needed Clear liquid diet We'll clinically monitor patient and she is asymptomatic CBC, CMP and lipase in a.m. Discussed with patient's mother at the bedside 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: Possible further workup as an outpatient with [facility] Plan/VTE VTE Prophylaxis Ordered?: Yes VS, I&O, 24H, Fishbone Vital Signs/I&O Vital Signs Date Time Temp Pulse Resp B/P (MAP) Pulse Ox O2 Delivery O2 Flow Rate FiO2 01/24/19 07:20 18 01/24/19 07:04 Room Air 01/24/19 04:30 98.9 68 117/71 (86) 98 I&O- Last 24 Hours up to 6 AM 01/24/19 06:00 Intake Total 1150 ml Output Total 850 ml Balance 300 ml Laboratory Data 24H LABS Laboratory Tests 2 01/24/19 06:34: Immature Granulocyte % (Auto) 0.4, Neutrophils (%) (Auto) 79.2H, Lymphocytes (%) (Auto) 10.0L, Monocytes (%) (Auto) 8.5H, Eosinophils (%) (Auto) 1.7, Basophils (%) (Auto) 0.2, Neutrophils # (Auto) 7.9, Lymphocytes # (Auto) 1.0L, Monocytes # (Auto) 0.9H, Eosinophils # (Auto) 0.2, Basophils # (Auto) 0.0, Nucleated Red Blood Cells % (auto) 0.0, Anion Gap 7L, Glomerular Filtration Rate > 60.0, Calcium Level 8.9, Total Bilirubin 2.2H, Aspartate Amino Transf (AST/SGOT) 41H, Alanine Aminotransferase (ALT/SGPT) 75, Alkaline Phosphatase 285H, Total Protein 5.8#L, Albumin 2.7L, Albumin/Globulin Ratio 0.87L, Lipase 2508H CBC/BMP Laboratory Tests 01/24/19 06:34 JORGE ANDREA MD Jan 24, 2019 09:42
[2019-01-24 14:00] VITALS: BP 103/55
[2019-01-24] MEDS: PANTOPRAZOLE 40MG INJ (PROTONIX) (C9113) IV SCH (17:45)
[2019-01-24 20:00] VITALS: BP 108/71
[2019-01-25 06:00] VITALS: BP 106/56
[2019-01-25] MEDS: ACETAMINOPHEN TAB 650MG DOSE (2X325MG) PO PRN ×3 (06:17→20:25)
[2019-01-25 06:42] LABS: ALBUMIN 2.5 GM/DL (3.2-5.2); ALT/SGPT 71 U/L (12-78); BILIRUBIN,TOTAL 2.1 MG/DL (0.2-1.0); BLOOD UREA NITROGEN 5 MG/DL (7-18); CALCIUM LEVEL 8.8 MG/DL (8.5-10.1); CARBON DIOXIDE LEVEL 27 MEQ/L (21-32); CHLORIDE LEVEL 105 MEQ/L (98-107); GLOMERULAR FILTRATION RATE > 60.0 (>60); GLUCOSE, FASTING 81 MG/DL (70-100); LIPASE 715 U/L (73-393); MAGNESIUM LEVEL 1.8 MG/DL (1.8-2.4); POTASSIUM SERUM 3.6 MEQ/L (3.5-5.1); SODIUM LEVEL 139 MEQ/L (136-145); TOTAL PROTEIN 6.5 GM/DL (6.4-8.2)
[2019-01-25 08:14] LABS: BASO % 0.2 % (0.0-1.0); EOS # 0.1 10^3/uL (0.0-0.5); HEMATOCRIT 38.2 % (36.0-47.0); LYMPH # 0.6 10^3/uL (1.5-5.0); LYMPH % 4.1 % (24.0-44.0); MEAN CORPUSCULAR HEMOGLOBIN 27.3 pg (27.0-33.0); MEAN CORPUSCULAR HGB CONC 31.4 g/dl (32.0-36.5); MEAN CORPUSCULAR VOLUME 86.8 fl (80.0-96.0); MONO # 1.3 10^3/uL (0.0-0.8); MONO % 8.6 % (0.0-5.0); NEUTROPHILS # 12.4 10^3/uL (1.5-8.5); NEUTROPHILS % 85.6 % (36.0-66.0); PLATELET COUNT, AUTOMATED 284 10^3/uL (150-450); WHITE BLOOD COUNT 14.5 10^3/uL (4.0-10.0)
[2019-01-25] MEDS: VENLAFAXINE **XR** 75MG CAPSULE PO SCH (08:46)
[2019-01-25] MEDS: VITAMIN D 1,000 INTERNATIONAL UNITS TABLET PO SCH (08:46)
[2019-01-25] MEDS: hydrOXYzine 25 MG TAB PO SCH ×3 (08:46→20:25)
[2019-01-25] MEDS: ARIPiprazole 10 MG TAB PO SCH (08:46)
[2019-01-25] MEDS: busPIRone 5 MG TAB PO SCH ×2 (08:46→20:26)
[2019-01-25] MEDS: lamoTRIgine 100MG TAB PO SCH ×2 (08:46→20:25)
[2019-01-25] MEDS: DOCUSATE SODIUM 100 MG CAP PO SCH ×2 (08:48→20:26)
--- NOTE | 2019-01-25 10:21 | IPNPDOC ---
Subjective Date Seen The patient was seen on 01/25/19. Subjective Chief Complaint/HPI Patient is still has some soreness in the epigastric area, but wants to eat now and she is still on clear liquid diet General: Denies: ROS Unobtainable, Chills, Night Sweats, Fatigue, Malaise, Normal Appetite, Other Symptoms Constitutional: Denies: Chills, Fever, Malaise, Night Sweats, Weakness, Fat igue, Weight Loss, Lethargy, Other Pulmonary: Denies: Dyspnea, Cough, Pleuritic Chest Pain, Other Symptoms Cardiovascular: Denies: Chest Pain, Palpitations, Orthopnea, Paroxysmal Noc. Dyspnea, Edema, Lt Headedness, Other Symptoms Gastrointestinal: Reports: Other Symptoms Hematologic: Denies: Bruising, Bleeding Excessively, Petecchia, Purpura, Enlarged Lymph Nodes, Other Hematologic Endocrine: Denies: Polydipsia, Polyphagia, Polyuria, Heat Intolerance, Cold Intolerance, Other Endocrine Sx Musculoskeletal: Denies: Neck Pain, Back Pain, Shoulder Pain, Arm Pain, Hand Pain, Leg Pain, Foot Pain, Joint Pain, Muscle Pain, Spasms, Other Symptoms Objective Physical Examination ENT Exam: Positive: Atraumatic Neck Exam: Positive: Supple Chest Exam: Positive: Clear to auscultation, Normal air movement Heart Exam: Positive: Rate Normal, Normal S1, Normal S2 Abdomen Exam: Positive: Normal bowel sounds, Tenderness (. Mild tenderness at the epigastric area) Extremity Exam: Positive: Normal pulses Skin Exam: Positive: Nl turgor and temperature Neuro Exam: Positive: Strength at 5/5 X4 ext, Sensation Intact, Cranial Nerves 3-12 NL Assessment /Plan Problems (1) Choledocholithiasis with obstruction Status: Acute Problem Text: Patient is completely asymptomatic status post ERCP with removal of the stones from bile duct with a lithotripsy Patient is slightly elevated lipase 2508, which is expected after the procedure But she does complain of some pain, which again is expected postop To the morphine and Zofran as needed Advance diet as tolerated today Patient's lipase is 7:15 and total bilirubin 2.1 today Pt probably can be discharged home tomorrow. If the lipase and bilirubin continued to be downtrending and patient is tolerating her oral feeding Patient will follow up with Dr. Mathews as an outpatient Also need to follow up with [facility] regarding her ovarian cyst as outpatient Management and discharge plans were discussed with patient and her mother at the bedside 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: Possible further workup as an outpatient with [facility] Plan/VTE VTE Prophylaxis Ordered?: Yes VS, I&O, 24H, Fishbone Vital Signs/I&O Vital Signs Date Time Temp Pulse Resp B/P (MAP) Pulse Ox O2 Delivery O2 Flow Rate FiO2 01/25/19 06:00 98.4 86 18 106/56 (73) 95 Room Air I&O- Last 24 Hours up to 6 AM 01/25/19 06:00 Intake Total 2180 ml Output Total 400 ml Balance 1780 ml Laboratory Data 24H LABS Laboratory Tests 2 01/25/19 06:07: Immature Granulocyte % (Auto) 0.5, Neutrophils (%) (Auto) 85.6H, Lymphocytes (%) (Auto) 4.1L, Monocytes (%) (Auto) 8.6H, Eosinophils (%) (Auto) 1.0, Basophils (%) (Auto) 0.2, Neutrophils # (Auto) 12.4H, Lymphocytes # (Auto) 0.6L, Monocytes # (Auto) 1.3H, Eosinophils # (Auto) 0.1, Basophils # (Auto) 0.0, Nucleated Red Blood Cells % (auto) 0.0 01/25/19 06:10: Anion Gap 7L, Glomerular Filtration Rate > 60.0, Calcium Level 8.8, Magnesium Level 1.8, Total Bilirubin 2.1H, Aspartate Amino Transf (AST/SGOT) 29, Alanine A minotransferase (ALT/SGPT) 71, Alkaline Phosphatase 228H, Total Protein 6.5, Albumin 2.5L, Albumin/Globulin Ratio 0.63L, Lipase 715H CBC/BMP Laboratory Tests 01/25/19 06:07 01/25/19 06:10 JORGE ANDREA MD Jan 25, 2019 10:21
[2019-01-25 14:00] VITALS: BP 101/55
[2019-01-25] MEDS: PANTOPRAZOLE 40MG INJ (PROTONIX) (C9113) IV SCH (17:37)
[2019-01-25 20:00] VITALS: BP 111/58
[2019-01-26 06:00] VITALS: BP 108/59
[2019-01-26 08:51] LABS: BASO # 0.1 10^3/uL (0.0-0.2); BASO % 0.2 % (0.0-1.0); EOS # 0.3 10^3/uL (0.0-0.5); EOS % 1.5 % (0.0-3.0); HEMOGLOBIN 12.3 g/dl (12.0-15.5); LYMPH # 1.1 10^3/uL (1.5-5.0); LYMPH % 5.7 % (24.0-44.0); MEAN CORPUSCULAR HEMOGLOBIN 27.6 pg (27.0-33.0); MEAN CORPUSCULAR HGB CONC 32.4 g/dl (32.0-36.5); MEAN CORPUSCULAR VOLUME 85.4 fl (80.0-96.0); MONO # 1.7 10^3/uL (0.0-0.8); MONO % 8.3 % (0.0-5.0); NEUTROPHILS # 16.8 10^3/uL (1.5-8.5); NEUTROPHILS % 83.6 % (36.0-66.0); PLATELET COUNT, AUTOMATED 377 10^3/uL (150-450); RED BLOOD COUNT 4.45 10^6/uL (4.00-5.40); WHITE BLOOD COUNT 20.1 10^3/uL (4.0-10.0)
[2019-01-26] MEDS: DOCUSATE SODIUM 100 MG CAP PO SCH ×2 (09:00→09:38)
[2019-01-26 09:10] LABS: ALBUMIN 2.7 GM/DL (3.2-5.2); ALT/SGPT 50 U/L (12-78); BILIRUBIN,TOTAL 1.7 MG/DL (0.2-1.0); BLOOD UREA NITROGEN 5 MG/DL (7-18); CALCIUM LEVEL 9.3 MG/DL (8.5-10.1); CARBON DIOXIDE LEVEL 27 MEQ/L (21-32); CHLORIDE LEVEL 104 MEQ/L (98-107); CREATININE FOR GFR 0.63 MG/DL (0.55-1.30); GLOMERULAR FILTRATION RATE > 60.0 (>60); GLUCOSE, FASTING 79 MG/DL (70-100); LIPASE 363 U/L (73-393); POTASSIUM SERUM 3.5 MEQ/L (3.5-5.1); SODIUM LEVEL 139 MEQ/L (136-145); TOTAL PROTEIN 7.2 GM/DL (6.4-8.2)
[2019-01-26] MEDS: lamoTRIgine 100MG TAB PO SCH ×2 (09:38→21:28)
[2019-01-26] MEDS: busPIRone 5 MG TAB PO SCH ×2 (09:38→21:27)
[2019-01-26] MEDS: VITAMIN D 1,000 INTERNATIONAL UNITS TABLET PO SCH (09:38)
[2019-01-26] MEDS: ARIPiprazole 10 MG TAB PO SCH (09:38)
[2019-01-26] MEDS: VENLAFAXINE **XR** 75MG CAPSULE PO SCH (09:38)
[2019-01-26] MEDS: hydrOXYzine 25 MG TAB PO SCH ×3 (09:41→21:28)
[2019-01-26 14:00] VITALS: BP 103/56
--- NOTE | 2019-01-26 16:00 | IPNPDOC ---
Date Seen The patient was seen on 01/26/19. Progress Note SUBJECTIVE: Patient reported feeling fine but still has abdominal discomfort. Mother at bedside states that she also has had multiple loose bowel movements. Afebrile overnight. WBC 14->20 this morning, lactic acid 1.4. Total bilirubin and liver enzymes continue to trend down. OBJECTIVE PHYSICAL EXAMINATION: VITAL SIGNS: Please see below. General: No acute distress, Alert Eyes: Normal sclera, EOMI, CÉSAR HENT: Atraumatic Cardiovascular: Normal rate, normal rhythm. Pulmonary: Clear to auscultation b/l, no wheezing GI: Soft, nondistended, mild generalized tenderness Skin: Warm and dry Neuro: CN grossly intact. No focal deficits. Strengths equal b/l. Psych: oriented x 3 LABORATORY DATA, IMAGING STUDIES, MICROBIOLOGY: Please see below. DVT prophylaxis ordered?: Lovenox ASSESSMENT AND PLAN: 1. Obstructive choledocholithiasis - s/p ERCP with sphincteromy by GI. - Liver enzymes and lipase trending down. - to f/u Dr. Mathews post discharge. 2. Ovarian mass - Noted on CT abdomen. May contribute to pain. - To f/u with OBGYN post discharge. 3. Leukocytosis - Suspect 2/2 post op ERCP. Clinically well and reports feeling better. - Lactic acid 1.4, afebrile. - Blood cultures obtained, no antibiotics initiated at this time. Low threshold to start Abx if patient develops fever or show signs of sepsis/infection. - Watch for cholangitis. No strong suspicion given improvement in liver enzymes and clinical improvement. - Reports diarrhea for the past several days, check GI panel to r/o c. diff. DISPOSITION: [facility]. VS, I&O, 24H, Pending Sale To [facility] Vital Signs/I&O Vital Signs Date Time Temp Pulse Resp B/P (MAP) Pulse Ox O2 Delivery O2 Flow Rate FiO2 01/26/19 14:00 97.8 97 18 103/56 (72) 96 Room Air I&O- Last 24 Hours up to 6 AM 01/26/19 06:00 Intake Total 1140 ml Output Total 1400 ml Balance -260 ml Laboratory Data 24H LABS Laboratory Tests 2 01/26/19 07:53: Immature Granulocyte % (Auto) 0.7, Neutrophils (%) (Auto) 83.6H, Lymphocytes (%) (Auto) 5.7L, Monocytes (%) (Auto) 8.3H, Eosinophils (%) (Auto) 1.5, Basophils (%) (Auto) 0.2, Neutrophils # (Auto) 16.8H, Lymphocytes # (Auto) 1.1L, Monocytes # (Auto) 1.7H, Eosinophils # (Auto) 0.3, Basophils # (Auto) 0.1, Nucleated Red Blood Cells % (auto) 0.0, Anion Gap 8, Glomerular Filtration Rate > 60.0, Calcium Level 9.3, Total Bilirubin 1.7H, Aspartate Amino Transf (AST/SGOT) 17, Alanine Aminotransferase (ALT/SGPT) 50, Alkaline Phosphatase 219H, Total Protein 7.2, Albumin 2.7L, Albumin/Globulin Ratio 0.60L, Lipase 363 01/26/19 12:00: Lactic Acid Level 1.4 CBC/BMP Laboratory Tests 01/26/19 07:53 Microbiology Microbiology 01/26/19 Blood Culture, Received Pending 01/26/19 Blood Culture, Received Pending MARIO ALBERTO HSU MD Jan 26, 2019 16:00
[2019-01-26] MEDS: PANTOPRAZOLE 40MG INJ (PROTONIX) (C9113) IV SCH (17:02)
[2019-01-26] MEDS: ACETAMINOPHEN TAB 650MG DOSE (2X325MG) PO PRN (21:27)
[2019-01-26 22:00] VITALS: BP 108/65
[2019-01-27 06:00] VITALS: BP 106/59
[2019-01-27 06:48] LABS: HEMATOCRIT 36.7 % (36.0-47.0); HEMOGLOBIN 11.5 g/dl (12.0-15.5); MEAN CORPUSCULAR HGB CONC 31.3 g/dl (32.0-36.5); MEAN CORPUSCULAR VOLUME 86.2 fl (80.0-96.0); PLATELET COUNT, AUTOMATED 352 10^3/uL (150-450); RED BLOOD COUNT 4.26 10^6/uL (4.00-5.40); WHITE BLOOD COUNT 15.4 10^3/uL (4.0-10.0)
[2019-01-27 07:15] LABS: ALBUMIN 2.4 GM/DL (3.2-5.2); ALT/SGPT 37 U/L (12-78); BILIRUBIN,TOTAL 1.3 MG/DL (0.2-1.0); BLOOD UREA NITROGEN 4 MG/DL (7-18); CALCIUM LEVEL 8.7 MG/DL (8.5-10.1); CARBON DIOXIDE LEVEL 27 MEQ/L (21-32); CHLORIDE LEVEL 105 MEQ/L (98-107); GLOMERULAR FILTRATION RATE > 60.0 (>60); GLUCOSE, FASTING 84 MG/DL (70-100); LIPASE 271 U/L (73-393); POTASSIUM SERUM 3.3 MEQ/L (3.5-5.1); SODIUM LEVEL 140 MEQ/L (136-145); TOTAL PROTEIN 6.7 GM/DL (6.4-8.2)
[2019-01-27] MEDS: ARIPiprazole 10 MG TAB PO SCH (08:48)
[2019-01-27] MEDS: VENLAFAXINE **XR** 75MG CAPSULE PO SCH (08:48)
[2019-01-27] MEDS: VITAMIN D 1,000 INTERNATIONAL UNITS TABLET PO SCH (08:49)
[2019-01-27] MEDS: hydrOXYzine 25 MG TAB PO SCH (08:49)
[2019-01-27] MEDS: busPIRone 5 MG TAB PO SCH (08:49)
[2019-01-27] MEDS: lamoTRIgine 100MG TAB PO SCH (08:50)
[2019-01-27] MEDS ORDERED: ENOXAPARIN 40 MG/0.4 ML SYRINGE (J1650) SC SCH (09:00)
[2019-01-27] MEDS ORDERED: POTASSIUM CHLORIDE 10 MEQ SR TABLET PO ONE (09:15)
[2019-01-27] MEDS: ONDANSETRON 4MG/2ML VIAL (J2405) IV PRN (10:29)
--- NOTE | 2019-01-27 13:29 | DS.PDOC ---
Discharge Summary General Date of Admission Jan 21, 2019 at 17:47 Date of Discharge 01/27/19 Discharge Summary PROCEDURES PERFORMED DURING STAY: Impression: - The entire biliary tree was markedly dilated, acquired. - Choledocholithiasis was found. Complete removal was accomplished by biliary sphincterotomy and balloon extraction. - A biliary sphincterotomy was performed. - Lithotripsy was successful. - The biliary tree was swept. - One plastic stent was placed into the common bile duct. - The examination was otherwise normal. ADMITTING DIAGNOSES: 1. Obstructive choledocholithiasis 2. Ovarian mass DISCHARGE DIAGNOSES: 1. Obstructive choledocholithiasis 2. Ovarian mass 3. Leukocytosis COMPLICATIONS/CHIEF COMPLAINT: Choledocholithiasis With Obstruction, Ovarian Mass. HISTORY OF PRESENT ILLNESS: "This is 28 years old female with past medical history of depression, anxiety, seizure, allergies, seizures, urinary urgency, dysuria, localized idiopathic epilepsy, bipolar disorder, constipation. Was called from the clinic when she follows up and was told her bilirubin is 8.2, and come to ER. Patient complaining of generalized fatigue, malaise, loss of appetite, body aches since last few days. As you vomiting, fever, dizziness, syncope, abdominal pain, nausea, vomiting" HOSPITAL COURSE: Patient was admitted and underwent ERCP with GI with subsequent sphincterotomy and stent placement into the CBD. Liver enzymes continue to improve and patient reported improvements. Patient noted to have leukocytosis post op but since had trended down without any antibiotic treatments. Blood cultures so far is negative x2 after 24 hours. There was an initial concern for c. diff infection given reported diarrhea. GI panel was ordered but was contaminated, stool reportedly was also more formed as well and leukocytosis did trend down from 20- >15 without any intervention. Will discharge patient back to [facility] to f/u with PCP, OBGYN. Noted to have cystic lesion on abdominal US in the L. adnexa with s eptations. DISCHARGE MEDICATIONS: Please see below. ALLERGIES: Please see below. PHYSICAL EXAMINATION ON DISCHARGE: VITAL SIGNS: Please see below. General: No acute distress, Alert Eyes: Normal sclera, EOMI, CÉSAR HENT: Atraumatic Cardiovascular: Normal rate, normal rhythm. Pulmonary: Clear to auscultation b/l, no wheezing GI: Soft, nondistended, mild generalized tenderness Skin: Warm and dry Neuro: CN grossly intact. No focal deficits. Strengths equal b/l. Psych: oriented x 3 LABORATORY DATA: Please see below. IMAGING: Abd/Pelvis CT- Impression: 1. Evidence of extrahepatic biliary obstruction with moderate intrahepatic and extrahepatic bile duct dilation. Question choledocholithiasis. Gallbladder wall thickening. 2. There is a 10.8 cm cystic mass in the pelvis likely ovarian in origin. The left ovary is not separately identifiable. Benign and malignant cystic neoplasms are in the differential. 3. Bilateral hilar and mediastinal lymphadenopathy again seen. Borderline size spleen. Abdominal US- Sonographic findings: Transabdominal scanning is performed. Visualized bladder rodriguez are smooth. Uterine dimensions are normal measured at 7.7 x 3.5 x 4.8 cm. Endometrial echo 0.5 cm thick and centrally placed. A normal right ovary is seen measuring 1.9 x 1.4 x 2.1 cm. Its Doppler flow is normal, resistive index 0.58. There is a large hypoechoic cystic lesion in the left adnexa with septations and low level internal echoes, by ultrasound measuring 8.3 x 6.0 x 11.0 cm. Very little normal appearing ovarian tissue is seen. No free fluid is seen. Impression: The large pelvic cystic lesion appears to be left ovarian in origin. It shows some septations and low level internal echoes, but is otherwise largely anechoic. No free fluid seen. Normal right ovary and uterus. ACTIVITY: [As tolerated]. DIET: Regular DISCHARGE PLAN: f/u PCP and OBGYN DISPOSITION: [facility]. DISCHARGE INSTRUCTIONS: f/u PCP and OBGYN ITEMS TO FOLLOWUP ON ON OUTPATIENT: 1. Final blood culture results DISCHARGE CONDITION: [Stable]. TIME SPENT ON DISCHARGE: 35 minutes. Vital Signs/I&Os Vital Signs Date Time Temp Pulse Resp B/P (MAP) Pulse Ox O2 Delivery O2 Flow Rate FiO2 01/27/19 06:00 98.3 77 16 106/59 (75) 97 Room Air I&O- Last 24 Hours up to 6 AM 01/27/19 06:00 Intake Total 1680 ml Output Total 600 ml Balance 1080 ml Laboratory Data Labs 24H Laboratory Tests 2 01/27/19 06:18: Nucleated Red Blood Cells % (auto) 0.0, Anion Gap 8, Glomerular Filtration Rate > 60.0, Calcium Level 8.7, Total Bilirubin 1.3H, Aspartate Amino Transf (AST/SGOT) 11, Alanine Aminotransferase (ALT/SGPT) 37, Alkaline Phosphatase 181H, Total Protein 6.7, Albumin 2.4L, Albumin/Globulin Ratio 0.56L, Lipase 271 CBC/BMP Laboratory Tests 01/27/19 06:18 Microbiology Microbiology 01/26/19 Blood Culture - Preliminary, Resulted No growth after 24 hours . All specim... 01/26/19 Blood Culture - Preliminary, Resulted No growth after 24 hours . All specim... Discharge Medications Scheduled Aripiprazole (Aripiprazole) 10 Mg Tablet, 10 MG PO QAM, (Reported) Buspirone HCl (Buspirone HCl) 7.5 Mg Tablet, 7.5 MG PO BID, (Reported) Cholecalciferol (Vitamin D3) (Vitamin D3) 2,000 Unit Cap, 2,000 UNIT PO DAILY, (Reported) Ethinyl Estradiol/Drospirenone (Shakila 3 mg-0.02 mg Tablet) 1 Tab Tab, 1 TAB PO DAILY, (Reported) Hydroxyzine HCl (Hydroxyzine HCl) 25 Mg Tablet, 25 MG PO TID, (Reported) AM, 1600, QHS Lamotrigine (Lamotrigine) 200 Mg Tab, 400 MG PO BID, (Reported) Loratadine (Loratadine) 10 Mg Tab, 10 MG PO QHS, (Reported) Venlafaxine HCl (Effexor Xr) 37.5 Mg Cap.er.24h, 37.5 MG PO DAILY, (Reported) WITH 75MG CAP Venlafaxine HCl (Effexor Xr) 75 Mg Cap.er.24h, 75 MG PO DAILY, (Reported) WITH 37.5MG CAP Scheduled PRN Acetaminophen (Acetaminophen) 500 Mg Tab, 1,000 MG PO for PAIN, (Reported) Allergies Coded Allergies: SEASONAL ALLERGIES (Verified Allergy, Unknown, 01/14/19) MARIO ALBERTO HSU MD Jan 27, 2019 13:29
== END 2019-01-27 14:40 | disposition home or self-care (01) | DRG 446 ==
LOC: M ED 12:46 → M ED INP 17:47 → M MS4PR 19:26
PROVIDERS: ADMIT Internal Medicine; ATTEND Internal Medicine
PROC: 0FC98ZZ Extirpation of Matter from Common Bile Duct, Via Natural or Artificial Opening Endoscopic (ICD-10-PCS; 2019-01-23)
PROC: 0F798DZ Dilation of Common Bile Duct with Intraluminal Device, Via Natural or Artificial Opening Endoscopic (ICD-10-PCS; principal; 2019-01-23 08:30)
DX: K80.51 Calculus of bile duct without cholangitis or cholecystitis with obstruction (principal); F32.9 Major depressive disorder, single episode, unspecified; F41.9 Anxiety disorder, unspecified; N83.202 Unspecified ovarian cyst, left side; K59.00 Constipation, unspecified; N94.89 Other specified conditions associated with female genital organs and menstrual cycle; R30.0 Dysuria; R39.15 Urgency of urination; R94.5 Abnormal results of liver function studies; J30.2 Other seasonal allergic rhinitis; D72.828 Other elevated white blood cell count; Z79.899 Other long term (current) drug therapy; R56.9 Unspecified convulsions

== ENCOUNTER 2019-02-18 07:58 | Day surgery (SDC) | payer MEDICARE, MEDICAID ==
[~2019-02-18] VITALS: Ht 167.6 cm; Wt 77.1 kg
[~2019-02-18 07:58] MED LIST changes: +ABIL10TA9 PO; +D3 22000 PO; +EFFE37.5 PO; +EFFE75CA2 PO; +HYDR-3363 PO; -LAMO100T PO; +LAMO100T3 PO; -LAMO200T2 PO; +LAMO200T3 PO; +LIDOCAINE 1% MDV 20ML VIAL SQ PRN; +LR 1,000 ML IV ONE
[2019-02-18] MEDS ORDERED: PROPOFOL 200 MG/20 ML VIAL As Ordered ONE (08:03)
[2019-02-18] MEDS ORDERED: dexameTHASONE 4 MG/ML 1ML VIAL (J1100) As Ordered ONE (08:03)
[2019-02-18] MEDS ORDERED: LIDOCAINE 2% INJ 100 MG/5 ML SDV (FOR ANES.) As Ordered ONE (08:03)
[2019-02-18] MEDS ORDERED: ONDANSETRON 4MG/2ML VIAL (J2405) As Ordered ONE (08:03)
[2019-02-18] MEDS ORDERED: SUGAMMADEX SODIUM 500 MG/5 ML VIAL (BRIDION) As Ordered ONE (08:03)
[2019-02-18] MEDS ORDERED: ROCURONIUM BROMIDE 50 MG/5 ML VIAL As Ordered ONE (08:03)
[2019-02-18] MEDS ORDERED: MIDAZOLAM INJ 2 MG/2 ML VIAL (J2250) As Ordered ONE (08:04)
[2019-02-18] MEDS ORDERED: fentaNYL 100 MCG/2 ML INJECTION (J3010) As Ordered ONE (08:04)
[2019-02-18] MEDS ORDERED: CETACAINE SPRAY 5GM As Ordered ONE (08:43)
--- NOTE | 2019-02-18 10:15 | ROOR ---
Patient Name: Odilia Delvalle Procedure Date: 02/18/2019 8:56 AM Date of : 1990 Admit Type: Outpatient Age: 28 Note Status: Finalized Attending MD: Michelle Pretty MD Procedure: Bronchoscopy Indications: Bilateral hilar lymphadenopathy, Mediastinal adenopathy Providers: Michelle Pretty MD (Doctor) Referring MD: 1. No Referring Physician 1. No Referring Physician, Admin. (Referring MD) Requesting Physician: Medicines: General Anesthesia, Cetacaine topical Complications: No immediate complications. Estimated blood loss: Minimal Procedure: Pre-Anesthesia Assessment: - Prior to the procedure, a History and Physical was performed, and patient medications and allergies were reviewed. The patient's tolerance of previous anesthesia was also reviewed. The risks and benefits of the procedure and the sedation options and risks were discussed with the patient. All questions were answered, and informed consent was obtained. Prior Anticoagulants: The patient has taken no previous anticoagulant or antiplatelet agents. ASA Grade Assessment: II - A patient with mild systemic disease. After reviewing the risks and benefits, the patient was deemed in satisfactory condition to undergo the procedure. The Bronchoscope was introduced through the mouth, via the endotracheal tube (the patient was intubated for the procedure) and advanced to the tracheobronchial tree of both lungs. The procedure was accomplished without difficulty. The patient tolerated the procedure well. Findings: The endotracheal tube is in good position. The visualized portion of the trachea is of normal caliber. The angie is sharp. The tracheobronchial tree was examined to at least the first subsegmental level. Bronchial anatomy appeared normal, bronchial mucosa was normal with few scattered webbing; there are no endobronchial lesions, and minimal secretions. An endobronchial ultrasound endoscope was utilized in order to assist with fine needle aspiration in the subcarinal area and in the right hilum. Transbronchial needle aspirations of a lymph nodes were performed in the subcarinal area and in the right hilum using an Olympus EBUS-TBNA 21 gauge needle and sent for routine cytology. The procedure was guided by ultrasound. Transbronchial needle aspiration technique was selected because the sampling site was not visible endoscopically. Estimated blood loss: minimal. Impression: - Bilateral hilar lymphadenopathy - Mediastinal adenopathy - The airway examination was normal. - Endobronchial ultrasound was performed. - A transbronchial needle aspiration was performed. Recommendation: - Await cytology results. Attending Participation: I personally performed the entire procedure. Michelle Pretty MD 02/18/2019 10:15:09 AM Number of Addenda: 0 Note Initiated On: 02/18/2019 8:56 AM
[2019-02-18] MEDS ORDERED: fentaNYL 100 MCG/2 ML INJECTION (J3010) IV PRN (10:30)
[2019-02-18] MEDS ORDERED: oxyCODONE 5MG TAB PO PRN (10:30)
[2019-02-18] MEDS ORDERED: LR 1,000 ML IV SCH (10:30)
[2019-02-18] MEDS ORDERED: ONDANSETRON 4MG/2ML VIAL (J2405) IV PRN (10:30)
[2019-02-18 12:00] VITALS: BP 118/82
== END 2019-02-18 12:03 | disposition home or self-care (01) ==
LOC: M SDC 07:58
PROVIDERS: ATTEND Internal Medicine Pulmonary Disease
DX: R91.8 Other nonspecific abnormal finding of lung field (principal); R59.0 Localized enlarged lymph nodes; G40.909 Epilepsy, unspecified, not intractable, without status epilepticus; F31.9 Bipolar disorder, unspecified; F41.9 Anxiety disorder, unspecified; Z79.899 Other long term (current) drug therapy
CPT/HCPCS: 31629; 31652; 88173; 88305; 88312; J1100; J2250; J2405; J3010

== ENCOUNTER → 2019-03-12 | Outpatient (CLI) | payer MEDICARE, MEDICAID ==
[~2019-03-12] MED LIST changes: -LIDOCAINE 1% MDV 20ML VIAL SQ PRN; -LR 1,000 ML IV ONE
--- NOTE | 2019-03-12 11:58 | REP ---
Clinical: Follow-up left ovarian cyst . Technique: Transabdominal pelvic ultrasound with color Doppler evaluation of the ovaries. Findings: Bladder is unremarkable and measures 9.0 x 7.6 x 9.6 centimeters . Normal anteverted uterus measures 8.5 x 3.0 x 4.0 cm . The endometrial complex measures 3.0 mm thickness. No discrete uterine or endometrial abnormalities are appreciated. Bilateral ovaries are normal in appearance and vascularity. Right ovary is normal and measures 1.7 x 1.1 x 2.1 cm ; R I = 0.65. Left ovary measures 9.5 x 8.0 x 10.3 cm and includes 8.3 x 7.1 x 9.3 cm cyst with low-level echogenicity. No pelvic fluid or adnexal mass lesion . Impression: 1. Normal uterus and right ovary. 2. No change in the mildly complex left ovarian cystic structure. Electronically Signed by Luis Alberto Aden MD 03/12/2019 11:49 A
== END ==
LOC: M RAD 10:31
PROVIDERS: ATTEND Nurse Practitioner Women's Health
DX: N83.292 Other ovarian cyst, left side (principal)

== ENCOUNTER 2019-05-12 07:42 | Day surgery (SDC) | payer MEDICARE, MEDICAID ==
[~2019-05-12] VITALS: Ht 167.6 cm; Wt 81.6 kg
[~2019-05-12 07:42] MED LIST changes: +LR 1,000 ML IV ONE
[2019-05-12] MEDS ORDERED: BUPIVACAINE HCL 0.25% 30ML VIAL As Ordered ONE (09:30)
[2019-05-12] MEDS ORDERED: propofoL 200 MG/20 ML VIAL As Ordered ONE (10:24)
[2019-05-12] MEDS ORDERED: fentaNYL 250 MCG/5 ML INJECTION (J3010) As Ordered ONE (10:24)
[2019-05-12] MEDS ORDERED: METOCLOPRAMIDE INJ 10MG/2ML VIAL (J2765 PER 1) As Ordered ONE (10:24)
[2019-05-12] MEDS ORDERED: ONDANSETRON 4MG/2ML VIAL As Ordered ONE (10:24)
[2019-05-12] MEDS ORDERED: dexameTHASONE 4 MG/ML 1ML VIAL (J1100 PER 1MG) As Ordered ONE (10:24)
[2019-05-12] MEDS ORDERED: LIDOCAINE 2% 100MG/5ML SDV (FOR ANES.) As Ordered ONE (10:24)
[2019-05-12] MEDS ORDERED: ROCURONIUM BROMIDE 50 MG/5 ML VIAL As Ordered ONE (10:24)
[2019-05-12] MEDS ORDERED: SUGAMMADEX SODIUM 500 MG/5 ML VIAL (BRIDION) As Ordered ONE (10:24)
[2019-05-12] MEDS ORDERED: MIDAZOLAM INJ 2MG/2ML VIAL (J2250 PER 1MG) As Ordered ONE (10:24)
[2019-05-12] MEDS ORDERED: KETOROLAC 60 MG/2 ML VIAL As Ordered ONE (10:34)
[2019-05-12] MEDS ORDERED: ACETAMINOPHEN 1000MG 100ML IV BTL (OFIRMEV) (J0131 PER 10MG) As Ordered ONE (10:35)
[2019-05-12] MEDS ORDERED: LR 1,000 ML IV SCH (12:30)
[2019-05-12] MEDS ORDERED: NORCO, ANEXSIA 5/325MG TABLET (HYDROcodone/ACETAMINOPHEN) PO PRN (12:30)
[2019-05-12] MEDS ORDERED: HYDROMORPHONE HCL 0.5 MG/ 0.5 ML SYRINGE (J1170 PER 1) IV PRN (12:30)
[2019-05-12] MEDS ORDERED: fentaNYL 100 MCG/2 ML INJECTION (J3010) IV PRN (12:30)
[2019-05-12] MEDS ORDERED: ONDANSETRON 4MG/2ML VIAL IV PRN (12:30)
[2019-05-12] MEDS ORDERED: ACETAMINOPHEN TAB 650MG DOSE (2X325MG) PO PRN (12:30)
[2019-05-12] MEDS ORDERED: IBUPROFEN 100 MG/5 ML SUSP UDC DYE FREE PO PRN (12:30)
[2019-05-12] MEDS ORDERED: oxyCODONE 5MG TAB PO PRN (12:30)
[2019-05-12 14:27] VITALS: BP 119/66
--- NOTE | 2019-05-13 14:57 | RO ---
DATE OF PROCEDURE: 05/12/2019 PREOPERATIVE DIAGNOSIS: Recent choledocholithiasis. POSTOPERATIVE DIAGNOSIS: Cholelithiasis with chronic cholecystitis and recent choledocholithiasis. PROCEDURE PERFORMED: Laparoscopic cholecystectomy. SURGEON: Dr. Santo ANESTHESIA: General. INDICATIONS FOR THE PROCEDURE: Patient is a 29-year-old woman who recently presented with markedly elevated liver function tests and was found to have common bile duct stone. She underwent endoscopic retrograde cholangiopancreatography (ERCP) with stenting and is now for a laparoscopic cholecystectomy. OPERATIVE PROCEDURE: The patient was brought to the operating room and placed on the table in a supine position. She was placed under general endotracheal anesthesia. The patient's abdomen was prepped and draped in a sterile fashion. 0.25% Marcaine was infiltrated at each of the trocar sites as needed. A short supraumbilical midline incision was made and deepened to the fascia. A Veress needle was inserted and after positive hanging drop test the abdomen was insufflated with carbon dioxide gas. An 11 mm port was placed through the incision without difficulty. The laparoscope was inserted and initial examination showed a normal-appearing liver. Visualized portions of the stomach and small and large bowel were normal. The gallbladder was identified. The gallbladder appeared to be contracted but also packed with stones. A 5 mm port was placed in the left upper quadrant and two 5 mm ports were placed in the right upper quadrant. The patient was tilted to a slight reverse Trendelenburg position and rolled slightly to the left. It was difficult to grasp the gallbladder because of the a large number of stones. Gallbladder was elevated and dissection was begun near the gallbladder neck. There was some scarring in this area. As the peritoneum was opened and the structures were identified it was clear that the cystic duct was quite short and somewhat dilated. There were stones evident in the proximal cystic duct leaving little room for dissection. The common bile duct appeared somewhat dilated as well, but she has a known stent in place. It was clear that a clip would not control the cystic duct. I therefore elected to cut the cystic duct at the level of the stone within the duct and control the cystic duct stump with an Endoloop. This was accomplished. There was some back flow of bile noted from the cystic duct stump. The cystic duct stump was controlled with a #0 Vicryl Endoloop. Dissection continued and the cholecystic artery was identified and this was doubly clipped with hemoclips and divided. The gallbladder was then dissected free from the gallbladder bed using cautery dissection. The gallbladder was not perforated in the course of dissection. Gallbladder was placed in an Endopouch. The right upper quadrant was copiously irrigated to remove some blood and the spilled bile. Final inspection revealed no evidence of any bleeding or bile leak. The patient was returned to a flat position. The abdomen was deflated and the trocars were removed. The gallbladder within the Endopouch was removed through the supraumbilical site. This necessitated extending the incision slightly because of the stone burden. The peritoneum and fascia were closed with #2-0 Vicryl. The skin incisions were all closed with buried #4-0 Vicryl and Steri-Strips. Light dressings were applied. The patient tolerated the procedure well without apparent complication. She was awakened in the operating room, extubated and moved to the recovery room in stable condition. LUKE
== END 2019-05-12 14:45 | disposition home or self-care (01) ==
LOC: M SDC 07:42
PROVIDERS: ATTEND Surgery
DX: K80.71 Calculus of gallbladder and bile duct without cholecystitis with obstruction (principal); G40.89 Other seizures; F71 Moderate intellectual disabilities; F84.5 Asperger's syndrome; Z79.899 Other long term (current) drug therapy; F31.9 Bipolar disorder, unspecified; F41.9 Anxiety disorder, unspecified; F32.9 Major depressive disorder, single episode, unspecified
CPT/HCPCS: 47562; 81025; 88304; G0463; J0131; J1100; J1885; J2250; J2405; J2765; J3010

== ENCOUNTER → 2019-05-21 | Outpatient (CLI) | payer MEDICARE, MEDICAID ==
[~2019-05-21] MED LIST changes: -LR 1,000 ML IV ONE
[2019-05-21 06:47] LABS: BASO # 0.1 10^3/uL (0.0-0.2); BASO % 0.7 % (0.0-1.0); EOS # 0.3 10^3/uL (0.0-0.5); EOS % 3.2 % (0.0-3.0); HEMATOCRIT 40.8 % (36.0-47.0); LYMPH % 12.6 % (24.0-44.0); MEAN CORPUSCULAR HEMOGLOBIN 27.7 pg (27.0-33.0); MEAN CORPUSCULAR HGB CONC 31.9 g/dl (32.0-36.5); MONO # 0.7 10^3/uL (0.0-0.8); MONO % 8.2 % (0.0-5.0); NEUTROPHILS # 6.1 10^3/uL (1.5-8.5); NEUTROPHILS % 74.3 % (36.0-66.0); PLATELET COUNT, AUTOMATED 371 10^3/uL (150-450); RED BLOOD COUNT 4.69 10^6/uL (4.00-5.40); WHITE BLOOD COUNT 8.2 10^3/uL (4.0-10.0)
[2019-05-21 07:10] LABS: ALBUMIN 3.1 GM/DL (3.2-5.2); ALT/SGPT 25 U/L (12-78); BILIRUBIN,DIRECT 0.2 MG/DL (0.0-0.2); BILIRUBIN,TOTAL 0.3 MG/DL (0.2-1.0); CALCIUM LEVEL 9.1 MG/DL (8.5-10.1); GLOMERULAR FILTRATION RATE > 60.0 (>60); TOTAL PROTEIN 6.8 GM/DL (6.4-8.2)
--- NOTE | 2019-05-21 10:05 | ECGEPIP ---
[facility] Test Date: 2019-05-21 Pat Name: SATISH GLASS Department: Room: - Gender: Female Duck Bill Operator: CARLTON : 1990 Requested By: SAEED MILLER Order Number: [id number] Reading MD: Marcelle Watson Measurements Intervals [place] Rate: 71 P: 45 NE: 151 QRS: 68 QRSD: 87 T: 41 QT: 406 QTc: 442 Interpretive Statements SINUS RHYTHM WITH SINUS ARRHYTHMIA STABLE C/W 01/14/19 Electronically Signed on 05-21-2019 10:04:50 EDT by Marcelle Watson
[2019-05-21 11:01] LABS: TOTAL 25(OH) VITAMIN D 51.2 NG/ML (30.0-100.0)
[2019-05-26 00:06] LABS: ANGIOTENSIN 1 CONVERTING ENZYM 39 U/L (14-82); ASPERGILLUS FLAVUS ABY Negative (Neg:<1:1); ASPERGILLUS FUMIGATUS ABY Negative (Neg:<1:1); ASPERGILLUS NIGER ABY Negative (Neg:<1:1); BLASTOMYCES ANTIBODY LEVEL Negative (Neg:<1:1); CRYPTOCOCCUS ANTIGEN SER Negative (Negative); HISTOPLASMOSIS ANTIBODY Negative (Neg:<1:1); VITAMIN D 1,25 DIHYDROXY 62.5 pg/mL (19.9-79.3)
== END ==
LOC: M LAB 06:18
PROVIDERS: ATTEND Internal Medicine Pulmonary Disease
DX: D86.1 Sarcoidosis of lymph nodes (principal)

== ENCOUNTER 2019-05-25 11:47 | Day surgery (SDC) | payer MEDICARE, MEDICAID ==
[~2019-05-25] VITALS: Ht 165.1 cm; Wt 80.3 kg
[2019-05-25] MEDS ORDERED: LR 1,000 ML IV SCH ×3 (12:00→21:00)
[2019-05-25] MEDS ORDERED: MIDAZOLAM INJ 2 MG/2 ML VIAL (J2250) As Ordered ONE (12:01)
[2019-05-25] MEDS ORDERED: SUGAMMADEX SODIUM 500 MG/5 ML VIAL (BRIDION) As Ordered ONE (12:02)
[2019-05-25] MEDS ORDERED: ROCURONIUM BROMIDE 50 MG/5 ML VIAL As Ordered ONE ×2 (12:02→20:01)
[2019-05-25] MEDS ORDERED: LIDOCAINE 2% INJ 100 MG/5 ML SDV (FOR ANES.) As Ordered ONE (12:02)
[2019-05-25] MEDS ORDERED: ONDANSETRON 4MG/2ML VIAL (J2405) As Ordered ONE (12:02)
[2019-05-25] MEDS ORDERED: propofoL 200 MG/20 ML VIAL As Ordered ONE (12:02)
[2019-05-25] MEDS ORDERED: dexameTHASONE 4 MG/ML 1ML VIAL (J1100) As Ordered ONE (12:02)
[2019-05-25] MEDS ORDERED: fentaNYL 250 MCG/5 ML INJECTION (J3010) As Ordered ONE (12:02)
[2019-05-25 12:15] LABS: HEMATOCRIT 41.2 % (36.0-47.0); HEMOGLOBIN 13.3 g/dl (12.0-15.5); MEAN CORPUSCULAR HEMOGLOBIN 27.4 pg (27.0-33.0); MEAN CORPUSCULAR HGB CONC 32.3 g/dl (32.0-36.5); MEAN CORPUSCULAR VOLUME 84.9 fl (80.0-96.0); PLATELET COUNT, AUTOMATED 404 10^3/uL (150-450); RED BLOOD COUNT 4.85 10^6/uL (4.00-5.40); WHITE BLOOD COUNT 10.7 10^3/uL (4.0-10.0)
[2019-05-25 12:43] LABS: HCG, SERUM QUALITATIVE NEGATIVE (NEGATIVE)
[2019-05-25] MEDS ORDERED: BUPIVACAINE HCL 0.25% 30 ML VIAL As Ordered ONE (18:04)
[2019-05-25] MEDS ORDERED: ePHEDrine SULFATE 25 MG/5 ML(5MG/ML) SYRINGE As Ordered ONE (18:39)
[2019-05-25] MEDS ORDERED: PHENYLephrine HCL 500 MCG/5 ML (100MCG/ML) SYRINGE (J2370) As Ordered ONE (18:39)
[2019-05-25] MEDS ORDERED: ACETAMINOPHEN 1000MG 100ML IV BTL (OFIRMEV) (J0131 PER 10MG) As Ordered ONE (18:39)
[2019-05-25] MEDS ORDERED: GLYCOPYRROLATE INJ 0.2 MG/ML 2 ML VIAL As Ordered ONE (19:15)
[2019-05-25] MEDS ORDERED: ONDANSETRON 4MG/2ML VIAL (J2405) IV PRN (21:00)
[2019-05-25] MEDS ORDERED: MEPERIDINE INJ 25 MG/ML VIAL (J2175) IV PRN (21:00)
[2019-05-25] MEDS ORDERED: METOCLOPRAMIDE INJ 10MG/2ML VIAL (J2765) IV PRN (21:00)
[2019-05-25] MEDS ORDERED: fentaNYL 100 MCG/2 ML INJECTION (J3010) IV PRN (21:00)
[2019-05-25] MEDS ORDERED: oxyCODONE 5MG TAB PO PRN (21:00)
[2019-05-25 22:30] VITALS: BP 103/52
== END 2019-05-25 23:30 | disposition home or self-care (01) ==
LOC: M SDC 11:47
PROVIDERS: ATTEND Obstetrics & Gynecology
DX: D27.1 Benign neoplasm of left ovary (principal); G40.909 Epilepsy, unspecified, not intractable, without status epilepticus; F41.9 Anxiety disorder, unspecified; F71 Moderate intellectual disabilities; F84.5 Asperger's syndrome; F81.9 Developmental disorder of scholastic skills, unspecified; Z79.899 Other long term (current) drug therapy
CPT/HCPCS: 36415; 58661; 84703; 85027; 86850; 86900; 86901; 88305; J0131; J1100; J2250; J2370; J2405; J3010

== ENCOUNTER → 2019-11-06 | Outpatient (CLI) | payer MEDICARE, MEDICAID | LOC: M LAB 15:30 | PROVIDERS: ATTEND Physician Assistant Medical | DX: R56.9 Unspecified convulsions (principal) ==

== ENCOUNTER 2020-03-23 13:37 | Emergency (ER) | payer MEDICARE, MEDICAID ==
[~2020-03-23] VITALS: Ht 168.9 cm; Wt 84.5 kg
--- OUTSIDE RECORDS SUMMARY | 2020-03-23 13:45 | CCD ---
Author Author [facility] Organization [facility] Address Unknown Phone Unavailable Care Team Providers Care Parking Worker Name Role Phone Evangelina Glass Unavailable PROBLEMS Type Condition ICD9-CM Code [id number] Code Onset Dates Condition S tatus SNOMED Code Notes Problem PMDD (premenstrual dysphoric disorder) F32.81 A ctive 636726 Problem Seizure disorder G40.909 Active 895547930 Problem Surveillance of previously prescribed contraceptive pill Z30.41 Active 853997973 Problem Constipation, unspecified constipation type K59.00 Active 81014288 Problem Lack of menses N91.2 Active 26793084 Problem Bipolar 1 disorder F31.9 Active 872759930 Problem Seasonal allergies J30.2 Active 338089101 Problem Urinary, incontinence, stress female N39.3 Act jose 66655633 Problem Pure hyperglyceridemia E78.1 Active 366731888 Problem Impulse control disorder F63.9 Active 4747976 0 Problem Sarcoidosis D86.9 Active 38127008 Problem Goiter E04.9 Active 6479287 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 32559740 Problem Gait instability R26.81 Active 546710483 Problem Health care maintenance Z00.00 Active 78474446 1 Problem Anxiety disorder, unspecified F41.9 Active 19 5847048 ALLERGIES Allergen (clinical drug ingredient) Drug/Non Drug Allergy do cumented on EMR Reaction Allergy Type Onset Date Status Seasonal congestion/watery eyes Non Drug Allergy Active ENCOUNTERS from 1990 to 2020-02-24 Encounter Location Date Provider Diagnosis [facility] [address] [address] Feb, Evangelina Glass IMMUNIZATIONS Vaccine Route Administration Date Status TDAP IM Intramuscular Dec 31, 2013 Administered TD Adult 0.5mL (Tetanus) Unknown Dec 31, 2013 Pending Influenza (6mo & up) Fluzone Unknown Jan 15, 2017 Adm inistered Influenza (6mo & up) Fluzone Unknown Nov 29, 2016 Oth ers Influenza (6mo & up) Fluzone Unknown Dec 26, 2015 Adm inistered SOCIAL HISTORY Tobacco Use: Social History Observation Description Date Details (start date - stop date) Never Smoker Sex Assigned At : Social History Observation Description Sex Assigned At Unknown Education: Question Answer Notes Level of Education: High School Audit Question Answer Notes Total Score: 0 Interpretation: Alcohol Education Sexual Hx: Question Answer Notes Had sex in the last 12 months (vaginal, oral, or anal)? No LMP: 07/10/18 Have you ever had an STD? No Drug and Alcohol Question Answer Notes Total Score: 0 Interpretation: No problems reported Alcohol Screening: Question Answer Notes Did you have a drink containing alcohol in the past year? No Points 0 Interpretation Negative BMI Care Goal Follow-Up Question Answer Notes Above Normal BMI Follow-Up Lifestyle education regarding t Tobacco Use: Question Answer Notes Are you a: never smoker REASON FOR REFERRAL No Information VITAL SIGNS No information MEDICATIONS Medication SIG (Take, Route, Frequency, Duration) Notes Start Da te End Date Status BusPIRone HCl 7.5 MG 1 tablet Orally Twice a day Active Aripiprazole 10 MG 1 tablet Orally Once a day Active Acetaminophen 500 MG 2 tablets as needed Orally every 6 hrs Active Venlafaxine HCl ER 37.5 MG 1 capsule with food with th e 75 mg tablet Orally Once a day Active Venlafaxine HCl ER 75 MG 1 capsule with food Orally Once a day Active Orthotics as directed bilateral feet Aug, Active Zyrtec Allergy 10 MG 1 tablet Orally Once a day for 30 day(s) Jun, Active Vitamin D 2000 UNIT 1 tablet Orally Once a day for 90 day(s) Active Lamictal 200 MG 2 tablets Orally twice daily Active Fluticasone Propionate 50 MCG/ACT 1 spray in each nost ril Nasally Once a day for 30 day(s) Feb, Active Drospirenone-Ethinyl Estradiol 3-0.02 MG 1 tablet Oral ly Once a day for 90 day(s) Active HydrOXYzine HCl 25 MG 1 tab Orally three times daily Active PROCEDURES No Information RESULTS No Results REASON FOR VISIT Nasal congestion MEDICAL (GENERAL) HISTORY Type Description Date Medical History depression Medical History anxiety Medical History seasonal allergies Medical History seizures Medical History 14 .5% 10 year ASCVD Risk Medical History Urinary urgency Medical History Dysuria Medical History Localization-related idiopathic epilepsy Medical History Bipolar disorder Medical History Constipation Medical History Pulmonary nodule Medical History Hypertriglyceridemia Medical History Sarcoidosis Surgical History stent in bile duct- dr. gifford Surgical History cholecystectomy 05/12/2019 Surgical History Laparoscopic left oophorectomy 0 Hospitalization History mental health Hospitalization History Choledocholithiasis 01/2019 Goals Section No Information Health Concerns No Information MEDICAL EQUIPMENT No Information MENTAL STATUS No Information FUNCTIONAL STATUS No Information ASSESSMENTS No Information PLAN OF TREATMENT Medication Medication Name Sig Start Date Stop Date Drospirenone-Ethinyl Estradiol 3-0.02 MG 1 tablet Oral ly Once a day for 90 day(s) Fluticasone Propionate 50 MCG/ACT 1 spray in each nost ril Nasally Once a day for 30 day(s) Feb, Zyrtec Allergy 10 MG 1 tablet Orally Once a day for 30 day(s) Jun, Orthotics as directed bilateral feet Aug, Next Appt Details Provider Name:Evangelina Glass 2019- 01:30:00 PM, [address] [place], [address], Insurance Providers Payer Name Payer Address Payer Phone Insured Name Patient Relati onship to Insured Coverage Start Date Coverage End Date MEDICAID [employer] [address] [facility] [id number] [phone] SATISH GLASS self MEDICARE Part A and B [address] [facility] [address] [place] self
--- OUTSIDE RECORDS SUMMARY | 2020-03-23 13:45 | CCD ---
Author Author [facility] Organization [facility] Address Unknown Phone Unavailable Care Team Providers Care Furniture Sprayer Name Role Phone Evangelina Glass Unavailable PROBLEMS Type Condition ICD9-CM Code [id number] Code Onset Dates Condition S tatus SNOMED Code Notes Problem PMDD (premenstrual dysphoric disorder) F32.81 A ctive 183714 Problem Seizure disorder G40.909 Active 182737619 Problem Surveillance of previously prescribed contraceptive pill Z30.41 Active 965171086 Problem Constipation, unspecified constipation type K59.00 Active 07173796 Problem Lack of menses N91.2 Active 71295801 Problem Bipolar 1 disorder F31.9 Active 871167442 Problem Seasonal allergies J30.2 Active 114035771 Problem Urinary, incontinence, stress female N39.3 Act jose 40925891 Problem Pure hyperglyceridemia E78.1 Active 848454533 Problem Impulse control disorder F63.9 Active 5527996 0 Problem Sarcoidosis D86.9 Active 23587764 Problem Goiter E04.9 Active 2605748 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 65286174 Problem Gait instability R26.81 Active 776565018 Problem Health care maintenance Z00.00 Active 96543869 1 Problem Anxiety disorder, unspecified F41.9 Active 19 9822498 ALLERGIES Allergen (clinical drug ingredient) Drug/Non Drug Allergy do cumented on EMR Reaction Allergy Type Onset Date Status Seasonal congestion/watery eyes Non Drug Allergy Active ENCOUNTERS from 1990 to 2020-03-01 Encounter Location Date Provider Diagnosis [facility] [address] [address] Feb, Evangelina Glass Seasonal allergies J30.2 IMMUNIZATIONS Vaccine Route Administration Date Status TDAP [...] Notes Start Da te End Date Status Zyrtec Allergy 10 MG 1 tablet Orally Once a day for 30 day(s) Jun, Active Aripiprazole 10 MG 1 tablet Orally Once a day Active Acetaminophen 500 MG 2 tablets as needed Orally every 6 hrs Active Venlafaxine HCl ER 37.5 MG 1 capsule with food with th e 75 mg tablet Orally Once a day Active Orthotics as directed bilateral feet Aug, Active Drospirenone-Ethinyl Estradiol 3-0.02 MG 1 tablet Oral ly Once a day for 90 day(s) Active HydrOXYzine HCl 25 MG 1 tab Orally three times daily Active BusPIRone HCl 7.5 MG 1 tablet Orally Twice a day Active Lamictal 200 MG 2 tablets Orally twice daily Active Fluticasone Propionate 50 MCG/ACT 1 spray in each nost ril Nasally Once a day for 30 day(s) Feb, Active Vitamin D 2000 UNIT 1 tablet Orally Once a day for 90 day(s) Active Venlafaxine HCl ER 75 MG 1 capsule with food Orally Once a day Active PROCEDURES No Information RESULTS No Results REASON FOR VISIT zyrtec MEDICAL (GENERAL) HISTORY Type Description Date Medical History depression Medical History anxiety Medical History seasonal allergies Medical History seizures Medical History /14 .5% 10 year ASCVD Risk Medical History [...] No Information FUNCTIONAL STATUS No Information ASSESSMENTS Encounter Date Diagnosis Assessment Notes Treatment Notes Treatm ent Clinical Notes Feb, Seasonal allergies (ICD-10 - J30.2) PLAN OF TREATMENT Medication Medication Name Sig Start Date Stop Date Zyrtec Allergy 10 MG 1 tablet Orally Once a day for 30 day(s) Jun, Fluticasone Propionate 50 MCG/ACT 1 spray in each nost ril Nasally Once a day for 30 day(s) Feb, Orthotics as directed bilateral feet Aug, Drospirenone-Ethinyl Estradiol 3-0.02 MG 1 tablet Oral ly Once a day for 90 day(s) Next Appt Details Provider Name:Evangelina Maria Luisa 2019-03 01:30:00 PM, [address] [facility], [place], [address], Insurance Providers Payer Name Payer Address Payer Phone Insured Name Patient Relati onship to Insured Coverage Start Date Coverage End Date MEDICARE Part A and B [address] [facility] [id number] [place] self [facility] [employer] [facility] [address] [facility] [address] [place] self
--- OUTSIDE RECORDS SUMMARY | 2020-03-23 13:45 | CCD ---
Author Author [facility] Organization [facility] Address Unknown Phone Unavailable Care Team Providers Care Continuous Mining Machine Operator Name Role Phone Evangelina Glass Unavailable PROBLEMS Type Condition ICD9-CM Code [id number] Code Onset Dates Condition S tatus SNOMED Code Notes Problem PMDD (premenstrual dysphoric disorder) F32.81 A ctive 369919 Problem Seizure disorder G40.909 Active 402814128 Problem Surveillance of previously prescribed contraceptive pill Z30.41 Active 054995004 Problem Constipation, unspecified constipation type K59.00 Active 02085343 Problem Lack of menses N91.2 Active 73896802 Problem Bipolar 1 disorder F31.9 Active 100766039 Problem Seasonal allergies J30.2 Active 555559358 Problem Urinary, incontinence, stress female N39.3 Act jose 95354439 Problem Pure hyperglyceridemia E78.1 Active 677484399 Problem Impulse control disorder F63.9 Active 9661180 0 Problem Sarcoidosis D86.9 Active 54220904 Problem Goiter E04.9 Active 2082383 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 05276233 Problem Gait instability R26.81 Active 597338858 Problem Health care maintenance Z00.00 Active 16462156 1 Problem Anxiety disorder, unspecified F41.9 Active 19 1740172 ALLERGIES Allergen (clinical drug ingredient) Drug/Non Drug Allergy do cumented on EMR Reaction Allergy Type Onset Date Status Seasonal congestion/watery eyes Non Drug Allergy Active ENCOUNTERS from 1990 to 2020-02-12 Encounter Location Date Provider Diagnosis [facility] [address] [address] Feb, Evangelina Movsesilashell Seizure disorder G40.909 ; Bipolar 1 dis order F31.9 ; Health care maintenance Z00.00 ; Sarcoidosis D86.9 and Pure hyperglyceridemia E78.1 IMMUNIZATIONS Vaccine Route Administration Date Status TDAP [...] Notes Start Da te End Date Status Vitamin D 2000 UNIT 1 tablet Orally Once a day for 90 day(s) Active Venlafaxine HCl ER 37.5 MG 1 capsule with food with th e 75 mg tablet Orally Once a day Active Lamictal 200 MG 2 tablets Orally twice daily Active Acetaminophen 500 MG 2 tablets as needed Orally every 6 hrs Active HydrOXYzine HCl 25 MG 1 tab Orally three times daily Active Venlafaxine HCl ER 75 MG 1 capsule with food Orally Once a day Active Aripiprazole 10 MG 1 tablet Orally Once a day Active Drospirenone-Ethinyl Estradiol 3-0.02 MG 1 tablet Oral ly Once a day for 90 day(s) Active BusPIRone HCl 7.5 MG 1 tablet Orally Twice a day Active Orthotics as directed bilateral feet Aug, Active Zyrtec Allergy 10 MG 1 tablet Orally Once a day for 30 day(s) Jun, Active PROCEDURES No Information RESULTS No Results REASON FOR VISIT lab order for upcoming appt MEDICAL (GENERAL) HISTORY Type Description Date Medical History depression Medical History anxiety Medical History seasonal allergies Medical History seizures Medical History 5/14 .5% 10 year ASCVD Risk Medical History [...] Treatment Notes Treatm ent Clinical Notes Feb, Seizure disorder (ICD-10 - G40.909) Feb, Bipolar 1 disorder (ICD-10 - F31.9) Feb, Health care maintenance (ICD-10 - Z00.00) Feb, Sarcoidosis (ICD-10 - D86.9) Feb, Pure hyperglyceridemia (ICD-10 - E78.1) PLAN OF TREATMENT Medication Medication Name Sig Start Date Stop Date Orthotics as directed bilateral feet Aug, Drospirenone-Ethinyl Estradiol 3-0.02 MG 1 tablet Oral ly Once a day for 90 day(s) Zyrtec Allergy 10 MG 1 tablet Orally Once a day for 30 day(s) Jun, Treatment Notes Test Name Order Date HEMOGLOBIN A1c 2020-02-12 ARIPIPRAZOLE (ABILIFY) LEVEL 2020-02-12 VITAMIN D 25-HYDROXY 2020-02-12 Comprehensive Metabolic Profile (CMP) 2020-02-12 CBC - Complete Blood Count 2020-02-12 LIPID PANEL (CARDIAC RISK) 2020-02-12 Next Appt Details Provider Name:Evangelina Glass, 2019-03 01:30:00 PM, [address] [facility], [place], [address], Insurance Providers Payer Name Payer Address Payer Phone Insured Name Patient Relati onship to Insured Coverage Start Date Coverage End Date MEDICARE Part A and B [facility] [address] [place] [phone] [place] MEDICAID [employer] [address] [facility] [id number] [place]
--- OUTSIDE RECORDS SUMMARY | 2020-03-23 13:46 | CCD | Continuity of Care Document ---
Author Author Odilia PEÑA P.A.-C. Organization Unknown Address [address] [place] [address] Phone [phone] Care Team Providers Care Manager Cardiac Name Role Phone Evangelina Glass M.D. AUTM [phone] Problems Active Problems Provider Date Seizure Miladis Dave M.D. Onset: 02/20/2016 Social History Type Date Description Comments Sex Unknown Allergies, Adverse Reactions, Alerts Active Allergies Reaction Severity Comments Date NKDA 11/03/2013 Hay Fever 03/08/2014 Medications Active Medications SIG Qnty Indications Ordering Provide r Date Depakote ER 500mg Tablets ER 24HR 1 po qhs for 7 days then 2 po qhs, reduce Lamictal to 200 mg bid when starting Depakote ER 60tabs G40.009 Miladis Dave M.D. 02/01/2020 Lamotrigine 200mg Tablets 1 po bid to start with Depakote ER 60tabs G40.009 Miladis Dave M.D. 020 Immunizations Description No Information Available Vital Signs Date Vital Result Comment 10/30/2019 6:50am BP Systolic 110 mmHg BP Diastolic 70 mmHg Heart Rate 68 /min Respiratory Rate 16 /min 04/02/2019 7:17am BP Systolic 110 mmHg BP Diastolic 70 mmHg Heart Rate 88 /min Respiratory Rate 16 /min Results Test Acquired Date Facility Test Result H/L Range Note Laboratory test finding 11/06/2019 [facility] Lamotrigine (Lamictal) 9.0 ug/mL Normal 2.0-20.0 1 1 Testing on this sample was p erformed by homogeneous enzyme immunoassay. Detection Limit = 1.0 Performed at: [facility] [address] [id number] Leather Carver: Nilam Mendoza [facility], Phone: [phone] Procedures Description No Information Available Medical Devices Description No Information Available Encounters Type Date Location Provider Dx Diagnosis Office Visit 10/30/2019 8:30a Main office - [place] Julio Nolen.A.-CRodri G40.009 Local-rel idio epi w seiz of loc onst,no t ntrct,w/o stat epi R51 Headache R42 Dizziness and giddiness Assessments Date Code Description Provider 02/01/2020 G40.009 Localization-related (focal) (pa rtial) idiopathic epilepsy a Julio Busby.A.-CRodri 02/01/2020 R42 Dizziness and giddiness Julio Busby.A.-CRodri 02/01/2020 R51.9 Headache, unspecified Aaron SaleemA.-CRodri 10/30/2019 G40.009 Localization-related (focal) (pa rtial) idiopathic epilepsy a Julio Busby.A.-C. 10/30/2019 R51 Headache Julio Busby.A.-CRodri 10/30/2019 R42 Dizziness and giddiness Julio Busby.A.-CRodri Plan of Treatment 02/01/2020 - Julio Busby.A.-CRodri* G40.009 Localization-related (focal) (partial) idiopathic epilepsy a* New Medication:* Depakote ER 500 mg - 1 po qhs for 7 days then 2 po qhs, reduce Lamictal to 200 mg bid when starting Depakote ER * R42 Dizziness and giddiness * R51.9 Headache, unspecified Functional Status Description No Information Available Mental Status Description No Information Available Referrals Description No Information Available
--- OUTSIDE RECORDS SUMMARY | 2020-03-23 13:46 | CCD | Continuity of Care Document ---
Author Author Odilia JENKINS P.A.-C. Organization Unknown Address [address] [place] [address] Phone [phone] Care Team Providers Care Paint Supervisor Name Role Phone Evangelina Glass M.D. AUTM Problems Active Problems Provider Date Seizure Miladis [...] H/L Range Note Laboratory test finding 11/06/2019 [facility] Lamotrigine (Lamictal) 9.0 ug/mL Normal 2.0-20.0 1 1 Testing on this sample was p erformed by homogeneous enzyme immunoassay. Detection Limit = 1.0 Performed at: [facility] [address] [id number] Conservation Assistant: Nilam Mendoza [facility], Phone: [phone] Procedures Description No Information Available Medical Devices Description No Information Available Encounters Type Date Location Provider Dx Diagnosis Office Visit 02/01/2020 8:45a Main office - [place] Julio Nolen.A.-C. G40.009 Local-rel idio epi w seiz of loc onst,no t ntrct,w/o stat epi R42 Dizziness and giddiness R51.9 Headache, unspecified Office Visit 10/30/2019 8:30a Main office - [place] Julio Nolen.A.-C. G40.009 Local-rel idio epi w seiz of loc onst,no t ntrct,w/o stat epi R51 Headache R42 Dizziness and giddiness Assessments Date Code Description Provider 02/01/2020 G40.009 Localization-related (focal) (pa rtial) idiopathic epilepsy a Julio Busby.A.-C. 02/01/2020 R42 Dizziness and giddiness Meli Jenkins P.A.-C. 02/01/2020 R51.9 Headache, unspecified Julio Saleem.A.-C. 10/30/2019 G40.009 Localization-related (focal) (pa rtial) idiopathic epilepsy a Julio Busby.A.-C. 10/30/2019 R51 Headache Meli Jenkins P.A.-C. 10/30/2019 R42 Dizziness and giddiness Meli Jenkins P.A.-C. Plan of Treatment Future Appointment(s):* 05/03/2020 8:45 am - Aaron BusbyA.-CRodri at [facility] 02/01/2020 - Bernabe Busby.-C.* G40.009 Localization-related (focal) (partial) idiopathic epilepsy a* New Medication:* Depakote ER 500 mg - 1 po qhs for 7 days then 2 po qhs, reduce Lamictal to 200 mg bid when starting Depakote ER * Comments:* Medications were discussed with Dr John. He recommends adding Depakote ER 500 mg qhs for 7 days then increase to 1000 mg qhs. Reduce Lamictal to 200 mg bid when starting Depakote ER. Get serum levels 2 weeks after starting Depakote ER 1000 mg. Prescriptions sent eRx. Lab order faxed to the residence. * R42 Dizziness and giddiness* Comments:* Stable. * R51.9 Headache, unspecified* Comments:* Stable. * Follow up:* 3 months Functional Status Description No Information Available Mental Status Description No Information Available Referrals Description No Information Available
--- OUTSIDE RECORDS SUMMARY | 2020-03-23 13:46 | CCD | Continuity of Care Document ---
Author Odilia Pineda PA-C Organization Unknown Address [facility] [address] [place] [address] Phone [phone] Problems Active Problems Provider Date Anxiety state Cornel Saleh LCSW Onset: 07/10/2018 Autistic disorder Cornel Saleh LCSW Onset: 07/10/2018 Note: PER HISTORY Intellectual disability Alejo Duron PA-C Onset: 9 Social History Type Date Description Comments Sex Unknown Allergies, Adverse Reactions, Alerts Active Allergies Reaction Severity Comments Date NKDA 08/14/2018 NKFA 08/14/2018 Seasonal 08/14/2018 Medications Active Medications SIG Qnty Indications Ordering Provide r Date Buspirone HCL 10mg Tablets take one tablet by mouth twice daily 60tabs F84.0 Narayan Lackey MD 12/22 Aripiprazole 20mg Tablets 1/2 by mouth twice a day in am and at bedtime 30tabs F41.9 Narayan mora MD 10/26/2019 F84.0 F79 Effexor XR 37.5mg Caps ER 24HR 1 cap by mouth every morning 30caps F84.0 Narayan Lackey MD F79 F41.9 Effexor XR 75mg Caps ER 24HR 1 cap by mouth every morning 30caps F84.0 Narayan Lackey MD F79 F41.9 Hydroxyzine HCL 25mg Tablets take one tablet by mouth three times daily 90tabs F84.0 Narayan pérez MD F79 F41.9 Vitamin D3 Super Strength 2000Unit Capsules 1 cap by mouth every day 30caps Unknown Flonase Allergy Relief 50mcg/Act Suspension 1 spray each nares daily Unknown Claritin 10mg Tablets Unknown Lamictal 100mg Tablets 1 tab by mouth every night 30tabs Meli Jenkins PA 0 Lamictal 200mg Tablets 1 tab by mouth twice a day 60tabs Meli Jenkins PA 0 Shakila 3-0.02mg Tablets Georgia Perez Immunizations Description No Information Available Vital Signs Date Vital Result Comment 08/14/2018 10:03am BP Systolic Sitting 101 mmHg BP Diastolic Sitting 68 mmHg Heart Rate 85 /min Body Temperature 98.2 F Oral Respiratory Rate 18 /min O2 % BldC Oximetry 95 % Weight 199.00 lb Weight 90.266 kg Height 66 inches 5'6" BMI (Body Mass Index) 32.1 kg/m2 BSA (Body Surface Area) 2.00 m2 Results Description No Information Available Procedures Description No Information Available Medical Devices Description No Information Available Encounters Description No Information Available Assessments Date Code Description Provider 12/29/2019 F84.0 Autistic disorder Alejo Duron PA-C 12/29/2019 F79 Unspecified intellectual disabil kemi Duron PA-C 12/29/2019 F41.9 Anxiety disorder, unspecified Ca aliciab LESLIE Duron 09/30/2019 F84.0 Autistic disorder Alejo Duron PA-C 09/30/2019 F79 Unspecified intellectual disabil ekmi Duron PA-C Plan of Treatment Future Appointment(s):* 02/08/2020 11:20 am - Alejo Duron PA-C at [facility] Functional Status Description No Information Available Mental Status Description No Information Available Referrals Description No Information Available
--- OUTSIDE RECORDS SUMMARY | 2020-03-23 13:46 | CCD | Continuity of Care Document ---
Author Author Odilia MCLAIN DPM Organization Unknown Address [address] [place] [address], [address] [place] [address] Phone [phone] Care Team Providers Care Hot Packer Name Role Phone ShakirShanice adan DO AUTM [phone] Problems Active Problems Provider Date Osteochondropathy Omar Mclain DPM Onset: 03/10/2018 Corns and callosities Omar Mclain DPM Onset: 03/10/2018 Social History Type Date Description Comments Sex Unknown ETOH Use Denies alcohol use Tobacco Use Start: Unknown Patient has never smoked Allergies, Adverse Reactions, Alerts Active Allergies Reaction Severity Comments Date Seasonal Allergies 8 Medications Active Medications SIG Qnty Indications Ordering Provide r Date Lamotrigine 100mg Tablets Meli Beatty Hydroxyzine HCL 25mg Tablets Unknown Shakila 3-0.02mg Tablets Unknown Aripiprazole 10mg Tablets Unknown Hydroxyzine HCL 50mg Tablets Unknown Lamotrigine 200mg Tablets Meli Beatty Venlafaxine HCL ER 37.5mg Caps ER 24HR Unknown Venlafaxine HCL ER 75mg Caps ER 24HR Unknown Flucelvax Quadrivalent 5888-9643 0.5ml Mayra Administer as Directed Unknown Fluticasone Propionate 50mcg/Act Suspension 00 Aripiprazole 20mg Tablets Unknown Polyethylene Glycol 3350 [id number] Powder Hydroxyzine HCL 10mg Tablets Unknown Aripiprazole 2mg Tablets Unknown Immunizations Description No Information Available Vital Signs Date Vital Result Comment 10/13/2019 9:44am Height 67 inches 5'7" Weight 191.00 lb BP Systolic 118 mmHg BP Diastolic 82 mmHg Heart Rate 84 /min BMI (Body Mass Index) 29.9 kg/m2 02/25/2018 10:00am Height 67 inches 5'7" Weight 209.00 lb BP Systolic 130 mmHg BP Diastolic 80 mmHg Heart Rate 93 /min BMI (Body Mass Index) 32.7 kg/m2 Results Description No Information Available Procedures Description No Information Available Medical Devices Description No Information Available Encounters Type Date Location Provider Dx Diagnosis Office Visit 01/25/2020 11:00a [place] [facility] Omar Mclain DPM 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, unsp ankle and foot L84 Corns and callosities Office Visit 10/13/2019 9:30a [place] [facility] Omar Mclain DPM 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, unsp ankle and foot L84 Corns and callosities Assessments Date Code Description Provider 01/25/2020 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
--- OUTSIDE RECORDS SUMMARY | 2020-03-23 13:46 | CCD | Continuity of Care Document ---
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
--- OUTSIDE RECORDS SUMMARY | 2020-03-23 13:46 | CCD | Summary of Care ---
Author Author [facility] Address Unknown Phone Unavailable Care Team Providers Care Mapping Technician Name Role Phone Evangelina Glass DO PCP Reason for Visit * Auth/Cert Referred By Contact Referred To Contact Status Reason Specialty Diagnoses / Procedures Diagnoses g40.009 g40.89 r42 r51 P rocedures [id number] Encounter Details Care Team Description Date Type Department Jennifer Dey, DO [address] [facility] [address]th [place] [address] Localization-related epilepsy 01/11/2020 [facility] EPILEPSY MONITORING UNIT - Encounter CC 01/15/[address], [place] [address] Allergies No Known Allergiesdocumented as of this encounter (statuses as of 01/15/2020) Medications End Date Status Medication Sig Dispensed Refills Start Date Active ARIPiprazole 20 MG Oral Take 10 mg by 0 Tablet (ABILIFY) mouth Two 0 Times Daily Active busPIRone HCl 10 MG Oral Take 10 mg by 0 12/22 Tablet (BUSPAR) mouth Two 0 Times Daily Active hydrOXYzine HCl 25 MG Take 25 mg by 0 12/27/19 2 Oral Tablet (ATARAX) mouth Three 0 times daily Active Venlafaxine HCl ER 37.5 Take 37.5 mg 0 MG Oral Capsule Extended by mouth 0 Release 24 Hour daily Take (EFFEXOR-XR) with 75 mg capsule. DXG=640.5 mg. Active Drospirenone-Ethinyl Take 1 tablet 0 Estradiol 3-0.02 MG Oral by mouth 0 Tablet (GIANVI) daily Active lamoTRIgine 200 MG Oral Take 400 mg 0 Tablet (LaMICtal) by mouth Two 0 Times Daily Active Venlafaxine HCl ER 75 MG Take 75 mg by 0 12/19 Oral Capsule Extended mouth daily 0 Release 24 Hour Take with (EFFEXOR-XR) 37.5 mg capsule. GUI=867.5 mg. Active Vitamin D 50 MCG (1999 Take 2,000 0 UT) Oral Tablet Units by mouth daily Active Cetirizine HCl 10 MG Oral Take 10 mg by 0 Tablet (ZYRTEC) mouth daily Active Hypromellose 0.3 % Place 1 drop 0 Ophthalmic Gel (GENTEAL) into both eyes Two Times Daily documented as of this encounter (statuses as of 01/15/2020) Active Problems Patient Care Coordination Note 12/24/19 Patient resides in a retirement . ( Mother )Ally involved in her care HJ[facility] Problem Noted Date Localization-related epilepsy 01/11/2020 documented as of this encounter (statuses as of 01/15/2020) Social History Date Tobacco Use Types Packs/Day Years Used Never Smoker Smokeless Tobacco: Never Used Drinks/Week oz/Week Comments Alcohol Use Never Alcohol Habits Answer Date Recorded How often do you have a drink containing alcohol? Never 01/11/2020 How many drinks containing alcohol do you have on No t asked a typical day when you are drinking? How often do you have six or more drinks on one Not asked occasion? Education Answer Date Recorded What is the highest level of school you have High school g raduate 01/11/2020 completed or the highest degree you hav e received? Sex Assigned at Date Recorded Not on file Date Recorded COVID-19 Exposure Response 01/11/2020 7:34 AM EST In the last month, have you been in contact with No / Unsure someone who was confirmed or suspected to have Coronavirus / COVID-19? documented as of this encounter Last Filed Vital Signs Reading Time Taken Comments Vital Sign 113/84 01/15/2020 2:38 PM EST Blood Pressure 97 01/15/2020 2:38 PM EST Pulse 36.7 C (98.1 F) 01/15/2020 2:38 PM EST Temperature 16 01/15/2020 2:38 PM EST Respiratory Rate 95% 01/15/2020 2:38 PM EST Oxygen Saturation - - Inhaled Oxygen Concentration 92.9 kg (204 lb 14.4 oz) 01/11/2020 8:00 AM EST Weight 170.7 cm (5' 7.2") 01/11/2020 8:00 AM EST Height 31.9 01/11/2020 8:00 AM EST Body Mass Index documented in this encounter Discharge Instructions * Instructions* Nadine Hill PA - 01/15/2020 1:40 PM EST While you were here we captured a seizure, confirming a diagnosis of Epilepsy. We did not change any of your medications. You were given a dose of your Lamicta l this morning, you can continue your regular dose tonight after discharge. Make an appointment to follow up with Meli Jenkins PA-C to discuss the results o f this study, as you will likely benefit from adding a second medication (Depako te). This can be done outpatient with Meli Jenkins as the levels will need to be monitored. Continue to follow seizure precautions. Seizure safety precautions including no driving, no climbing heights, no use of heavy machinery, no bathe or swimming un supervised. If you have any questions or concerns, please do not hestitate to reach out to Riky Jenkins to be seen sooner. EPILEPSY HANDOUT MEDICATIONS Take your seizure medications as prescribed. Missing doses of seizure medication can result in , injury, or more frequent seizures. Please call your doctor before you run out of medication if you need refills. SUDEP SUDEP stands for Sudden Unexpected in Epilepsy. Are you SUDEP aware? Check this link: http://www.sudepaware.org BONE HEALTH FDC anti-seizure medication can lower bone density, and this can result in osteopetrosis. It is recommended that all patients taking anti-seizure medicati on take a supplement of calcium and vitamin D. This can be prescribed or over-th e-counter. Calcium should be at least 500 mg twice per day, and vitamin D should be at least 800 international units total per day. DEPRESSION Depression is very common in patients with epilepsy. Talk with your doctor if yo u find that you are suffering from signs of depression. PATIENT ADVOCACY, RESOURCES, COMMUNITY: http://www.epilepsy.com - the leading portal for people, caregivers and profess ionals dealing with epilepsy SEIZURE DIARY Patients with seizures should keep track each seizure: when did it happen, what happened, where there any triggers, etc. This can be easily done in a small note book, a calendar, or a mobile phone. A very helpful, FREE resource for this is a website called SeizureBreezy. They also include a mobile nilda for phones. https ://Master Route.Trulioo/ SAFETY: Patients at risk for seizures that involves loss of consciousness must avoid: - Driving (at least 6 months after a seizure... ...UNTIL A PHYSICIAN STATES THAT IT IS OK TO DRIVE - unattended baths, unattended swimming,power tools, heavy machinery - ladders, high platforms, roofs - any other activity that could pose a safety risk if there was a loss of consci ousness or uncontrolled body movements For any seizure involving loss of consciousness, do the followin. Don't panic - take a deep breath 2. Look at the clock to see what time the seizure started. 3. If the patient is shaking for more than 5 minutes - or has repeated seizures without returning to normal in between, call 911; this is an emergency. 4. As much as possible, move things away from the patient's head to avoid injury 5. Use pillows or towels to protect them from injury 6. Put them on a bed, couch, or the floor ON THEIR SIDE. This is to avoid a cond ition called aspiration pneumonia, when vomit goes into the lungs. 7. DO NOT PUT ANYTHING IN THEIR MOUTH. Putting things inside the mouth could le ad to choking hazard. documented in this encounter Progress Notes * Sheree Shankar RN - 01/15/2020 3:24 PM EST Discharge education completed with patient and mother per discharge summary. Pat iecarlos manuel verbalized understanding of all instructions. Vital signs all within normal ranges, peripheral iv discontinued, patient's medications were returned from [facility]. Patient transported via wheelchair to main entrance where private vehicl e awaits. * Malena Reardon RN - 01/14/2020 10:10 PM EST Patient noted to have increased anxiety earlier in shift circulation crew leader provider made a barreto new order obtained. Medication given with effect. * Malena Reardon RN - 01/13/2020 7:27 PM EST Patient noted to have head deviation with body to right side. Generalized shaki ng noted all over body. Patient suctioned, given oxygen and IV valium tolerate d well. Event last approx 3 min from [id number]. Patient after event noted to be drowsy alert responding to verbal and tactile stimuli. ditching machine operating engineer provider juanito solorio. * Malena Reardon RN - 01/13/2020 7:22 PM EST 01/13/201845 EPILEPSY MONITORING COGNITIVE TOOL Event Begin Time 1845 Event End Time 1845 Event Alarm Activated By? Nurse During Event, the nurse will assess the following: Level of Consciousness Alert Read a sentence from the cognitive tool Patient read correctly Identify a picture from the cognitive tool Patient identified picture correctly Hold up two fingers (w/o demoing for patient) Followed command Point to an object in the room Followed command Remember three words (number, color, object) yes Describe how the patient feels fuzzy, feels different, off Post Event, the nurse will assess the following: Level of Consciousness Alert Can patient describe what just happened? Yes Read a sentence from the cognitive tool Patient read correctly Identify a picture from the cognitive tool Patient identified picture correctly Patient states feeling fuzzy and not right. Patient alert and at baseline. Fac e symmetric, eye contact made, speech clear. Patient able to follow commands an d make needs known. Skin color race appropriate, resps eay non-labored. Safety maintained. * Nadine Hill PA - 01/13/2020 1:37 PM EST EPILEPSY MONITORING UNIT PROGRESS NOTE Date of Encounter: 01/13/2020 Day: 3 Patient Name: Odilia Delvalle Date of : 1990 SUBJECTIVE: Patient had 0 seizures or events since the last note. She feels her mood is good this morning. Scheduled Meds: ARIPiprazole 10 mg Oral BID busPIRone 10 mg Oral BID cetirizine 10 mg Oral Daily drospirenone-ethinyl estradiol 1 tablet Oral Daily hydrOXYzine 25 mg Oral TID hypromellose 1 drop Both Eyes BID sodium chloride (preservative free) 3 mL Intravenous 3 times per day venlafaxine 37.5 mg Oral Daily venlafaxine 75 mg Oral Daily vitamin D3 2,000 Units Oral Daily PRN Meds:acetaminophen (TYLENOL) tablet, bisacodyl, calcium carbonate, [COMPLETE D] Peripheral IV AND sodium chloride (preservative free) AND sodium chlo ride (preservative free) AND [COMPLETED] Saline Lock order AND sodium ch loride AND dextrose, diazePAM, diphenhydrAMINE, ibuprofen, LORazepam, magnes ium hydroxide, ondansetron, senna OR senna OBJECTIVE: Vitals: 01/12/20 0850 01/12/20 1600 01/12/20 2337 01/13/20 0809 BP: 120/87 112/76 105/74 108/67 BP Location: Right arm Left arm Left arm Right arm Patient Position: Sitting Lying Sitting Pulse: 84 85 81 81 Resp: 16 16 16 16 Temp: 36.8 C (98.2 F) 37.1 C (98.8 F) 36.9 C (98.4 F) 36 .7 C (98.1 F) TempSrc: Oral Oral Oral Oral SpO2: 96% 93% 92% 95% Weight: Height: Exam: Unchanged compared to admission Labs: No new labs VEEG FINDINGS: No seizures seen overnight on video EEG monitoring. See daily procedure note for details. ASSESSMENT AND PLAN: Odilia Delvalle is a right- handed 29 y.o. female admitted for characterization and classification of seizures. Thus far have not captured patients habitual epi sodes. Plan Day 3: # Seizure disorder - Lamictal level: 10 - Lamictal level this mornin.4 - Stop Lamictal starting this morning - Plan for HV and photic this afternoon - Sleep deprivation overnight as tolerated - Continue video EEG monitoring to capture spells. PRNS: - For any Type 1 episode; observe and report - For 1st GTC, give 5 mg Valium IV - For 2nd GTC, give 2 mg Ativan IV # Bipolar Disorder - Continue Abilify 10 mg twice daily - Continue buspar 10 mg twice daily - Continue Venlafaxine ER 37.5 mg + 75 mg (MDD: 112.g mg daily) - Continue hydroxyzine 25 ml three times daily # History of Vitamin D deficiency - Continue Vitamin D 2,000 units daily The patient was seen, and this plan was formulated with Dr. Santos who agrees wit h the above. Nadine Hill PA-C 01/13/20 Associated attestation - Ned Santos MD - 01/13/2020 4:27 PM EST ATTENDING: I, Dr Ricardo Santos, saw and evaluated the patient. I discussed the case with the practioner and agree with the findings as in this note. * Nadine Hill PA - 01/12/2020 12:44 PM EST EPILEPSY MONITORING UNIT PROGRESS NOTE Date of Encounter: 01/12/2020 Day: 2 Patient Name: Odilia Delvalle Date of : 1990 SUBJECTIVE: Patient had 0 seizures or events since the last note. She denied any overnight e vents. She thinks she may be getting her menses soon. There is a possibility her seizure episodes are associated with her menses. Scheduled Meds: ARIPiprazole 10 mg Oral BID busPIRone 10 mg Oral BID cetirizine 10 mg Oral Daily drospirenone-ethinyl estradiol 1 tablet Oral Daily hydrOXYzine 25 mg Oral TID hypromellose 1 drop Both Eyes BID lamoTRIgine 200 mg Oral Once sodium chloride (preservative free) 3 mL Intravenous 3 times per day venlafaxine 37.5 mg Oral Daily venlafaxine 75 mg Oral Daily vitamin D3 2,000 Units Oral Daily PRN Meds:acetaminophen (TYLENOL) tablet, bisacodyl, calcium carbonate, [COMPLETE D] Peripheral IV AND sodium chloride (preservative free) AND sodium chlo ride (preservative free) AND [COMPLETED] Saline Lock order AND sodium ch loride AND dextrose, diphenhydrAMINE, ibuprofen, LORazepam, magnesium hydrox keith, ondansetron, senna OR senna OBJECTIVE: Vitals: 01/11/20 0800 01/11/20 1543 01/11/20 2334 01/12/20 0850 BP: 115/71 107/70 97/63 120/87 BP Location: Right arm Right arm Right arm Right arm Patient Position: Lying Lying Lying Sitting Pulse: 87 92 79 84 Resp: 16 16 16 16 Temp: 37 C (98.6 F) 37.2 C (99 F) 36.4 C (97.5 F) 36.8 C (98.2 F) TempSrc: Oral Oral Oral Oral SpO2: 95% 95% 94% 96% Weight: 92.9 kg (204 lb 14.4 oz) Height: 1.707 m (5' 7.2") Exam: Unchanged compared to admission Labs: No new labs VEEG FINDINGS: No seizures seen overnight on video EEG monitoring ASSESSMENT AND PLAN: Odilia Delvalle is a right- handed 29 y.o. female admitted for characterization and classification of seizures. Plan Day 2: # Seizure disorder - Lamictal level: 10 - Decrease Lamictal to 200 mg BID starting tonight - Obtain lamictal level in the morning - Continue video EEG monitoring to capture spells. PRNS: - For any Type 1 episode; call attending - For any Type 4 GTC; call attending and give 2 mg Ativan IV # Bipolar Disorder - Continue Abilify 10 mg twice daily - Continue buspar 10 mg twice daily - Continue Venlafaxine ER 37.5 mg + 75 mg (MDD: 112.g mg daily) - Continue hydroxyzine 25 ml three times daily # History of Vitamin D deficiency - Continue Vitamin D 2,000 units daily The patient was seen, and this plan was formulated with Dr. Santos who agrees wit h the above. Nadine Hill PA-C 01/12/20 Associated attestation - Ned Santos MD - 01/12/2020 8:18 PM EST ATTENDING: Maynor, Dr Ricardo Santos, saw and evaluated the patient. I discussed the case with the practioner and agree with the findings as in this note. * Layo Zhu, PharmD - 01/11/2020 9:03 AM EST Pre-Admission Medication History Source of med rec information: (nelsy X for all sources) [X] Patient/Family provided written list [X] Patient's family member [X] [facility] Outpatient pharmacy where patient fills prescriptions: [facility] - [address] Of note: Patient's mother provided medication list from [facility] tient's mother is an excellent historian. Patient's dose of Buspar was increased last Saturday from 7.5 mg BID to 10 mg BID. Patient takes venlafaxine ER 37.5 mg capsule and 75 mg capsule together. The following medications were removed from the patient's home medication list: There are no discontinued medications. Recommendations: 1. Prior to Admission medications Medication Sig Start Date End Date Taking? Authorizing Provider ARIPiprazole 20 MG Oral Tablet (ABILIFY) Take 10 mg by mouth Two Times Daily Yes Historical Provider, busPIRone HCl 10 MG Oral Tablet (BUSPAR) Take 10 mg by mouth Two Times Daily Yes Historical Provider, Cetirizine HCl 10 MG Oral Tablet (ZYRTEC) Take 10 mg by mouth daily Yes Histor ical Provider, Drospirenone-Ethinyl Estradiol 3-0.02 MG Oral Tablet (GIANVI) Take 1 tablet by m outh daily 01/04/20 Yes Historical Provider, hydrOXYzine HCl 25 MG Oral Tablet (ATARAX) Take 25 mg by mouth Three times daily 12/27/19 Yes Historical Provider, Hypromellose 0.3 % Ophthalmic Gel (GENTEAL) Place 1 drop into both eyes Two Time s Daily Yes Historical Provider, lamoTRIgine 200 MG Oral Tablet (LaMICtal) Take 400 mg by mouth Two Times Daily 1 Yes Historical Provider, Venlafaxine HCl ER 37.5 MG Oral Capsule Extended Release 24 Hour (EFFEXOR-XR) Ta ke 37.5 mg by mouth daily Take with 75 mg capsule. DAP=736.5 mg. 12/27/19 Yes H istorical Provider, Venlafaxine HCl ER 75 MG Oral Capsule Extended Release 24 Hour (EFFEXOR-XR) Take 75 mg by mouth daily Take with 37.5 mg capsule. SFH=688.5 mg. 12/20/19 Yes His torical Provider, Vitamin D 50 MCG (1999) Oral Tablet Take 2,000 Units by mouth daily Yes His torical Provider, documented in this encounter H&P Notes * Nadine Hill PA - 01/11/2020 10:34 AM EST Epilepsy Monitoring Unit H&P REFERRING PHYSICIAN: Meli Jenkins PA-C PCP: Evangelina Glass DO CHIEF COMPLAINT: Referral for video-EEG monitoring for: [x] Characterization [x] Classification of seizures Seizure History: SEIZURE HISTORY AND EVOLUTION: Odilia Delvalle is a 29 y.o., right female who mendoza s been referred for video-EEG monitoring by Sb NELSON. The patient is a ccompanied to the hospital by her mother, who is her legal guardian. Primary his artur is patient's mother with additional history obtained from the patient's [facility] home health aide Aide Perez and her father via telephone. Age of onset of seizures was 3 months old. Prior records were reviewed and seizu re was described as a tonic seizure. She was admitted to [facility] for 1 week for further workup however the diagnosis is unclear. After she was discharged, she s tarted following outpatient with pediatric neurologist Dr. Gaines in [facility] nd was started on Phenobarbital, which was later tapered off age 2. Patient remained seizure free for 8 years until age 10, when she became pre-pube rtal and began having "atypical petit mal" seizures. Her father describes the ep isodes as staring spells with eye fluttering, however he is unsure whether they were seizures or behavioral. They would occur in social situations like when she would be asked to read a book outloud in front of her peers. Of note, the patie nt's biological brother began having similar spells also starting in puberty and was diagnosed with absence seizures. Around the same time she began having these episodes, she was hospitalized for a severe psychotic episode and was put on Depakote for both seizures and mood con trol. She continued to follow with Dr. Gaines and in 2005, she underwent a ro utine EEG at [facility] which showed sharp waves with focal slowing over the left-f rontotemporal region. Later in 2008, she was admitted to [facility] for 3 day video EEG monitoring for characterization of frequent episodes of pausing in behavior . The video EEG monitoring was "minimally abnormal due to the presence of very r are broad left temporal sharp waves". Her pausing episodes were non-epileptic, s he had 30 push buttons for episodes of pauses in her behavior without any EEG co rrelation. The patient switched from Dr. Gaines to [facility] when she durga me an adult. She was continued on Depakote until age 25 (2015), at which point h neurologist attempted to wean her off it after having 3 normal routine EEG's. During the weaning, the patient experienced another psychotic episode and was h ospitalized inpatient. She was then started on Trileptal for mood, but this was switched to Lamictal. She has been on the Lamictal for the last few years. The patient moved from living at home to a retirement around 2015. At this point , she started having grand mal seizures occurring every 3-4 months. The patient endorses having auditory hallucinations, and sometime they will tell her to have seizures. The patient does not have any warning prior to her seizures, but some times will be very irritable and non-cooperative prior starting a day or two noreen or to her seizures. She is often very frustrated when she is at the retirement b ecause she does not like some other members in the house. Aide, the house man ager, describes the episodes as the patient will start breathing heavy with rig idity of the body and then whole body shaking. She has had ictal cry at the onse t of seizures, bitten her tongue or the inside of her cheek and drooling. If she is standing up, she will fall down to the ground. Some of the episodes have bee n associated with picking at clothes or trying to take off her clothes. Afterwar ds she is tired. There is no incontinence of bowel or bladder. The frequency of the seizures is increasing. Patient previously had her seizures every 3-4 months, however the last 2 months has had several seizures. CURRENT SEIZURE DESCRIPTION AND FREQUENCY: Seizure Type: 1 Seizure Type: Absence seizures Ictal: Staring episodes Postictal: None Duration: Unknown Seizure Frequency: Unknown, occurred in childhood. Triggers: No Last Seizure: Unknown Longest seizure-free interval:8 years Seizure Type: 2 Seizure type: Generalized Aura: None-per patient Ictal: Patient breathes heavy, starts drooling, body becomes rigid and has whole body shaking Postictal: Confusion, fatigue Duration: 4-9 minutes Seizure Frequency: Previously once every 3-4 months, however has had several sei zures in November and December. Diurnal variation: During the day Associated Symptoms: Biting tongue or cheek, trying to remove clothing Triggers: "Becoming frustrated", flashing lights Last Seizure: 11/17/19, 11/14/19, 12/17/19 Longest seizure-free interval: Unknown INJURIES RELATED TO SEIZURES: None EPILEPSY RISK FACTORS: - History of head trauma: no - History of meningitis/encephalitis/ROAD TRAIN DRIVER infection: no - History of febrile seizure: no - Family history of seizures: Yes, absence seizures in brother - Other: Prematurity. NON-EPILEPTIC RISK FACTORS: - History of PTSD: Denies - History of Abuse: Denies - Ongoing stressors: Yes, due to COVID she has not been able to leave the retirement to go on outings and does not like some of the other residents in the retirement ANTIEPILEPTIC DRUGS (AED) and OTHER TREATMENTS: Current AEDs: Lamictal 400 mg BID- last dose this morning Previous AEDs: Depakote- on from age [age], tolerated well Trileptal- in the past for mood AND DEVELOPMENTAL HISTORY: - Weight at : 5 lbs and 15 ounces, was born at 36 weeks. Vaginal , hea d first without any complications at . - Age of walkin months - Special education: Yes, throughout all of her education - Able to keep up with friends in games and sports: For the most part PSYCHIATRIC HISTORY: Patient has an extensive psychiatric history with multiple inpatient hospitaliza tions. She has auditory hallucinations. Her mother states she has had multiple diagnoses in the past including Asperger's Syndrome, Schizophrenia, and Schizoaf fective disorder. Her mother states her current diagnosis is Bipolar disorder. S he also has anxiety and depression. She follows with a psychiatrist Alejo howard at [facility] who manages her medications. She was previously following with a counselor, however she has not been seeing only lately because she did not find any benefit in it. PHQ-9 score: 3, however was filled out by mother BRITNI-7 score: 6, however form was filled out by mother Past Medical History: PAST MEDICAL HISTORY Bipolar Disorder PAST SURGICAL HISTORY Cholecystectomy - May 2019 Left oophorectomy- May 2019 PAST FAMILY HISTORY Mother- anxiety, depression Father- HTN, meningioma Brother- autism, absence seizures SOCIAL HISTORY- Patient lives in a retirement. She visits her parents 2 weekends a month. She has an intellectual delay with an IQ of 68. Her mother is her leg al guardian. Patient has volunteered at [employer] and participated in [employer] programs and outings, which she has not been able to due since May due to COVID epidemic.She was in special education programs in childhood, graduated w ith an IEP diploma. She denies any history of smoking, drug or alcohol use. She does not drive. Social History Tobacco Use Smoking status: Not on file Substance Use Topics Alcohol use: Not on file Drug use: Not on file CURRENT MEDICATIONS Outpatient Medications Marked as Taking for the 01/11/20 encounter ([facility]) Medication Sig Dispense Refill Extra Info ARIPiprazole 20 MG Oral Tablet (ABILIFY) Take 10 mg by mouth Two Times Da tiffany 1 busPIRone HCl 10 MG Oral Tablet (BUSPAR) Take 10 mg by mouth Two Times Da tiffany 1 Cetirizine HCl 10 MG Oral Tablet (ZYRTEC) Take 10 mg by mouth daily 1 Drospirenone-Ethinyl Estradiol 3-0.02 MG Oral Tablet (GIANVI) Take 1 tabl et by mouth daily 1 hydrOXYzine HCl 25 MG Oral Tablet (ATARAX) Take 25 mg by mouth Three time s daily 1 Hypromellose 0.3 % Ophthalmic Gel (GENTEAL) Place 1 drop into both eyes T wo Times Daily 1 lamoTRIgine 200 MG Oral Tablet (LaMICtal) Take 400 mg by mouth Two Times Daily 1 Venlafaxine HCl ER 37.5 MG Oral Capsule Extended Release 24 Hour (EFFEXOR -XR) Take 37.5 mg by mouth daily Take with 75 mg capsule. ZQG=040.5 mg. 1 Venlafaxine HCl ER 75 MG Oral Capsule Extended Release 24 Hour (EFFEXOR-X R) Take 75 mg by mouth daily Take with 37.5 mg capsule. ZFR=662.5 mg. 1 Vitamin D 50 MCG (1999) Oral Tablet Take 2,000 Units by mouth daily 1 REVIEW OF SYSTEMS Complete review of systems were performed and is scanned into the chart. ALLERGIES No Known Allergies Physical Examination: EXAMINATION Vitals: 01/11/20 0800 BP: 115/71 BP Location: Right arm Patient Position: Lying Pulse: 87 Resp: 16 Temp: 37 C (98.6 F) TempSrc: Oral SpO2: 95% Weight: 92.9 kg (204 lb 14.4 oz) Height: 1.707 m (5' 7.2") General Exam: General appearance: Alert, cooperative, no distress, appears stated age Head: Normocephalic, without obvious abnormality, atraumatic Eyes: Conjunctiva not pale, sclera not icteric Ears/Nose/Throat: no discharge Lungs: Clear to auscultation bilaterally Heart: Regular rate and rhythm, S1/S2 heard without extra sounds or murmurs Abdomen: Soft, non-tender, bowel sounds heard in all four quadrants, no organome karrie Extremities: No cyanosis or edema, pulses 2+ Skin: No rashes or lesions seen Neurological exam: Alert and oriented to self, location and year only. Month is "May". Season is "Winter". Able to identify "Thanksgiving". Recalls 2/3 words. Judgement appears normal. Insight is poor. Pupils symmetric and reactive to light. Extraocular movements intact with no nystagmus. Face symmetric, tongue is in midline, palate elevates upward symmetrically. Muscle tone and bulk normal, motor strength 5/5 throughout No resting or positional tremor. Reflexes 2+ and symmetric in the upper and lower extremities. Finger to nose intact bilaterally. LUKAS intact bilaterally. Gait narrow based and steady, able to walk on heels, toes and tandem walk. 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 EEG: Routine EEG (11/14/17): Abnormal due to intermittent left frontocentral sharps wit h aftercoming slow waves, likely indicative of epileptic potential Ambulatory EEG 12/01/18-12/04/18: - Normal. No epileptiform activity. No events. Video-EEG monitoring: In 2008 at [facility]- see HPI Assessment and Plan: Odilia Delvalle is a 29 y.o. right-handed female referred for video-EEG monitori for characterization and classification of seizure episodes. The patient is s tarted on video-EEG monitoring. In order to increase the probability of capturin g a seizure during the monitoring antiepileptic medications may be decreased in dose or discontinued and provocative techniques such as hyperventilation, photic stimulation, and sleep deprivation may be employed.Seizure precautions have bee n discussed and implemented. Patient is in agreement with this plan. # Seizure disorder - Lamictal level: pending - Continue Lamictal 400 mg BID - Continue video EEG monitoring to capture spells. PRNS: - For any Type 1 episode; call attending - For any Type 4 GTC; call attending and give 2 mg Ativan IV # Bipolar Disorder - Continue Abilify 10 mg twice daily - Continue buspar 10 mg twice daily - Continue Venlafaxine ER 37.5 mg + 75 mg (MDD: 112.g mg daily) - Continue hydroxyzine 25 ml three times daily # History of Vitamin D deficiency - Continue Vitamin D 2,000 units daily The patient was seen, and this plan was formulated with Dr. Dey who agrees wi th the above. Associated attestation - Jennifer Dey DO - 01/15/2020 3:36 PM EST I discussed the case with the CONTACT CENTER PROFESSIONAL and agree with their findings as documented in this note. documented in this encounter Procedure Notes * Ned Santos MD - 01/13/2020 1:33 PM EST COMPUTER ASSISTED DIGITAL VIDEO EEG MONITORING REPORT NUMBER: [id number] DATES and TIMES of PROCEDURE: Day 2 of EMU video EEG from 0850 01/12/2020 until 0850 01/13/2020 CLINICAL HISTORY: Odilia Delvalle is a 29 y.o. female with a history of epilepsy, who has been ref erred for video-EEG monitoring. No current facility-administered medications on file prior to encounter. Current Outpatient Medications on File Prior to Encounter Medication Sig Dispense Refill ARIPiprazole 20 MG Oral Tablet (ABILIFY) Take 10 mg by mouth Two Times Da tiffany busPIRone HCl 10 MG Oral Tablet (BUSPAR) Take 10 mg by mouth Two Times Da tiffany Cetirizine HCl 10 MG Oral Tablet (ZYRTEC) Take 10 mg by mouth daily Drospirenone-Ethinyl Estradiol 3-0.02 MG Oral Tablet (GIANVI) Take 1 tabl et by mouth daily hydrOXYzine HCl 25 MG Oral Tablet (ATARAX) Take 25 mg by mouth Three time s daily Hypromellose 0.3 % Ophthalmic Gel (GENTEAL) Place 1 drop into both eyes T wo Times Daily lamoTRIgine 200 MG Oral Tablet (LaMICtal) Take 400 mg by mouth Two Times Daily Venlafaxine HCl ER 37.5 MG Oral Capsule Extended Release 24 Hour (EFFEXOR -XR) Take 37.5 mg by mouth daily Take with 75 mg capsule. PVB=831.5 mg. Venlafaxine HCl ER 75 MG Oral Capsule Extended Release 24 Hour (EFFEXOR-X R) Take 75 mg by mouth daily Take with 37.5 mg capsule. VLV=309.5 mg. Vitamin D 50 MCG (1999 UT) Oral Tablet Take 2,000 Units by mouth daily Scheduled Meds: ARIPiprazole 10 mg Oral BID busPIRone 10 mg Oral BID cetirizine 10 mg Oral Daily drospirenone-ethinyl estradiol 1 tablet Oral Daily hydrOXYzine 25 mg Oral TID hypromellose 1 drop Both Eyes BID sodium chloride (preservative free) 3 mL Intravenous 3 times per day venlafaxine 37.5 mg Oral Daily venlafaxine 75 mg Oral Daily vitamin D3 2,000 Units Oral Daily Continuous Infusions: PRN Meds:.acetaminophen (TYLENOL) tablet, bisacodyl, calcium carbonate, [COMPLET ED] Peripheral IV AND sodium chloride (preservative free) AND sodium chl oride (preservative free) AND [COMPLETED] Saline Lock order AND sodium c hloride AND dextrose, diazePAM, diphenhydrAMINE, ibuprofen, LORazepam, magne sium hydroxide, ondansetron, senna OR senna TECHNICAL DESCRIPTION: This Computer Assisted Digital Video EEG was recorded us ing 21 scalp electrodes; and 2 EKG electrodes. It was reviewed using referentia l and bipolar montages following reformatting in the 10[employer] electro de placement system. Feliberto and seizure detection algorithms and Digital Feliberto A nalysis using dipole mapping software were employed. The patient was continuously monitored on video. Staff monitored the patient and noted routine and suspicious activities. When appropriate staff stimulated, int errogated and/or tested the patient during suspicious activities; and/or to prov manju seizures. Photic stimulation, hyperventilation, sleep deprivation and exerc ise were employed to try to induce seizures. The entire record was reviewed, and selected portions; including: spells reported by the patient, family or staff; spike and seizure detections; suspicious video or EEG findings; and other suspic ious abnormalities were analyzed in detail. Waking background consisted of an approximately symmetric 8 to 9 Hz, 20 to 80 mi crovolt, posterior dominant rhythm that attenuated with eye opening. Lower amplitude, faster frequencies were seen anteriorly. During drowsiness there was buildup of approximately symmetric theta and delta s lowing centrally and temporally, as well as frontal and central beta, slow rolli ng eye movements, and drop out of the alpha. Stages 1 and 2 of sleep included approximately symmetric vertex sharp transients , sleep spindles and K-complexes in the central head regions. Deeper sleep included approximately symmetric high amplitude delta slowing. REM sleep was also symmetric. Hyperventilation was not performed Photic stimulation with flash frequencies of 2-21 Hz was not performed IEDs: Interictal epileptiform discharges were not seen SEIZURES OR SPELLS: No seizures or spells were recorded. CLINICAL IMPRESSION: Day 2 of EMU video EEG from 0850 01/12/2020 until 0850 11/06/2019 This 24 hour video EEG is within normal limits. No epileptiform discharges or EE G seizures were seen. Twan Bello MD PGY 5 Clinical Neurophysiology Fellow I, Dr. Ricardo Santos, certify that I reviewed this study with the resident, and agree with the findings in their note. * Ned Santos MD - 01/12/2020 11:13 AM EST COMPUTER ASSISTED DIGITAL VIDEO EEG MONITORING REPORT NUMBER: [id number] DATES and TIMES of PROCEDURE: Day 1 of EMU video EEG from 0850 01/11/2020 until 0850 01/12/2020 CLINICAL HISTORY: Odilia Delvalle is a 29 y.o. female with a history of epilepsy, who has been ref erred for video-EEG monitoring. No current facility-administered medications on file prior to encounter. Current Outpatient Medications on File Prior to Encounter Medication Sig Dispense Refill ARIPiprazole 20 MG Oral Tablet (ABILIFY) Take 10 mg by mouth Two Times Da tiffany busPIRone HCl 10 MG Oral Tablet (BUSPAR) Take 10 mg by mouth Two Times Da tiffany Cetirizine HCl 10 MG Oral Tablet (ZYRTEC) Take 10 mg by mouth daily Drospirenone-Ethinyl Estradiol 3-0.02 MG Oral Tablet (GIANVI) Take 1 tabl et by mouth daily hydrOXYzine HCl 25 MG Oral Tablet (ATARAX) Take 25 mg by mouth Three time s daily Hypromellose 0.3 % Ophthalmic Gel (GENTEAL) Place 1 drop into both eyes T wo Times Daily lamoTRIgine 200 MG Oral Tablet (LaMICtal) Take 400 mg by mouth Two Times Daily Venlafaxine HCl ER 37.5 MG Oral Capsule Extended Release 24 Hour (EFFEXOR -XR) Take 37.5 mg by mouth daily Take with 75 mg capsule. SDN=657.5 mg. Venlafaxine HCl ER 75 MG Oral Capsule Extended Release 24 Hour (EFFEXOR-X R) Take 75 mg by mouth daily Take with 37.5 mg capsule. GMH=192.5 mg. Vitamin D 50 MCG (1999 UT) Oral Tablet Take 2,000 Units by mouth daily Scheduled Meds: ARIPiprazole 10 mg Oral BID busPIRone 10 mg Oral BID cetirizine 10 mg Oral Daily drospirenone-ethinyl estradiol 1 tablet Oral Daily hydrOXYzine 25 mg Oral TID hypromellose 1 drop Both Eyes BID sodium chloride (preservative free) 3 mL Intravenous 3 times per day venlafaxine 37.5 mg Oral Daily venlafaxine 75 mg Oral Daily vitamin D3 2,000 Units Oral Daily Continuous Infusions: PRN Meds:.acetaminophen (TYLENOL) tablet, bisacodyl, calcium carbonate, [COMPLET ED] Peripheral IV AND sodium chloride (preservative free) AND sodium chl oride (preservative free) AND [COMPLETED] Saline Lock order AND sodium c hloride AND dextrose, diphenhydrAMINE, ibuprofen, LORazepam, magnesium hydro xide, ondansetron, senna OR senna TECHNICAL DESCRIPTION: This Computer Assisted Digital Video EEG was recorded us ing 21 scalp electrodes; and 2 EKG electrodes. It was reviewed using referentia l and bipolar montages following reformatting in the 10-[employer] International electro de placement system. Feliberto and seizure detection algorithms and Digital Feliberto A nalysis using dipole mapping software were employed. The patient was continuously monitored on video. Staff monitored the patient and noted routine and suspicious activities. When appropriate staff stimulated, int errogated and/or tested the patient during suspicious activities; and/or to prov manju seizures. Photic stimulation, hyperventilation, sleep deprivation and exerc ise were employed to try to induce seizures. The entire record was reviewed, and selected portions; including: spells reported by the patient, family or staff; spike and seizure detections; suspicious video or EEG findings; and other suspic ious abnormalities were analyzed in detail. Waking background consisted of an approximately symmetric 8 to 9 Hz, 20 to 80 mi crovolt, posterior dominant rhythm that attenuated with eye opening. Lower amplitude, faster frequencies were seen anteriorly. During drowsiness there was buildup of approximately symmetric theta and delta s lowing centrally and temporally, as well as frontal and central beta, slow rolli ng eye movements, and drop out of the alpha. Stages 1 and 2 of sleep included approximately symmetric vertex sharp transients , sleep spindles and K-complexes in the central head regions. Deeper sleep included approximately symmetric high amplitude delta slowing. REM sleep was also symmetric. Hyperventilation was not performed Photic stimulation with flash frequencies of 2-21 Hz was not performed IEDs: Interictal epileptiform discharges were not seen SEIZURES OR SPELLS: No seizures or spells were recorded CLINICAL IMPRESSION: Day 1 of EMU video EEG from 0850 01/11/2020 until 0850 11/0 05/2019 This 24 hour video EEG is within normal limits. No epileptiform discharges or EE G seizures were seen. Twan Bello MD PGY 5 Clinical Neurophysiology Fellow I, Dr. Ricardo Santos, certify that I reviewed this study with the resident, and agree with the findings in their note. documented in this encounter Miscellaneous Notes * Plan of Sheree Liriano RN - 01/15/2020 8:22 AM EST Problem: Inadequate Breathing Pattern Goal: Patient will maintain effective ventilation Description: Assess and monitor vital signs, respiratory status (to include resp iratory rate, depth, effort, and breath sounds), oxygen saturation, oral mucosa, tongue, pain, and labs (ABGs). Collaborate with interdisciplinary team and ini tiate plans and interventions as needed. Outcome: Adequate for Discharge Problem: Psychosocial Needs Goal: Psychosocial needs will be met during this hospitalization Outcome: Adequate for Discharge Problem: Knowledge Deficit Goal: Patient will have increased knowledge of procedure process Outcome: Adequate for Discharge Problem: Discharge Planning Goal: Patient discharge needs are met Outcome: Adequate for Discharge Problem: Risk for Falls Goal: No falls during hospitalization Description: Patient will not fall during hospitalization. Outcome: Adequate for Discharge * Plan of Sheree Liriano RN - 01/14/2020 8:56 AM EST Problem: Risk for seizure Goal: Patient will be provoked into seizure activity Outcome: Education Complete/Goal Met Problem: Risk for Falls Goal: No falls during hospitalization Description: Patient will not fall during hospitalization. Outcome: Progressing * Plan of Sheree Liriano RN - 01/13/2020 12:27 PM EST Problem: Risk for seizure Goal: Patient will be provoked into seizure activity Outcome: Progressing Problem: Knowledge Deficit Goal: Patient will have increased knowledge of procedure process Outcome: Progressing Problem: Risk for Falls Goal: No falls during hospitalization Description: Patient will not fall during hospitalization. Outcome: Progressing * Plan of Sheree Liriano RN - 01/12/2020 7:33 AM EST Problem: Risk for seizure Goal: Patient will be provoked into seizure activity Outcome: Progressing Problem: Knowledge Deficit Goal: Patient will have increased knowledge of procedure process Outcome: Progressing Problem: Risk for Falls Goal: No falls during hospitalization Description: Patient will not fall during hospitalization. Outcome: Progressing * Plan of Care - Sheree Shankar RN - 01/11/2020 8:31 AM EST Problem: Risk for seizure Goal: Patient will be provoked into seizure activity Outcome: Progressing Problem: Knowledge Deficit Goal: Patient will have increased knowledge of procedure process Outcome: Progressing Problem: Risk for Falls Goal: No falls during hospitalization Description: Patient will not fall during hospitalization. Outcome: Progressing documented in this encounter Plan of Treatment Date/Time Name Type Priority Associated Diag noses 01/15/2020 3:10 PM EST EEG Video Monitoring Neurology Routine Order Schedule Name Type Priority Associated Diag noses Continuous for 30 days for 30 Days start ing 01/11/2020 until 02/09/2020 Oxygen Orders: Nasal Respiratory Routine Cannula; Liters per Care minute: 2 LPM; D/C Oxygen 48hrs After Being on Room Air: Yes Health Maintenance Due Date Last Done Comments Varicella Vaccines (1 of 05/30/1995 2 - 2-dose childhood series) HIV Screening 2003 Cervical Cancer Screening 2011 3 years DTaP,Tdap,and Td Vaccines 08/14/2015 08/13/2005, (7 - Td) 05/02/1995, 11/20/1991, Additional history exists Pneumococcal Vaccine: 65+ 2055 Years (1 of 1 - PPSV23) HIB Vaccines Completed 07/13/1991, 1990, 1990, Additional history exists IPV Vaccines Completed 05/02/1995, 11/20/1991, 1990, Additional history exists MMR Vaccines Completed 05/02/1995, 07/13/1991 Hepatitis B Vaccines Completed 09/10/2003, 02/18/2003 Influenza Vaccine Completed 01/06/2020, 01/15/2017, 12/29/2007 Hepatitis A Vaccines Aged Out No longer eligibl e based on patient's age to complete this topic Pneumococcal Vaccine: Aged Out No longer eligib le based on patient's age to Pediatrics (0 to 5 Years) complete this topic and At-Risk Patients (6 to 64 Years) documented as of this encounter Procedures Comments Procedure Name Priority Date/Time Associated Diag nosis EEG VIDEO MONITORING Routine 01/15/2020 3:10 PM EST LAMOTRIGINE Routine 01/13/2020 5:41 AM EST LAMOTRIGINE Routine 01/11/2020 12:47 PM EST LAMOTRIGINE Routine 01/11/2020 11:48 AM EST BETA HCG, QUANT Routine 01/11/2020 11:43 AM EST documented in this encounter Results * Lamotrigine level (01/13/2020 5:41 AM EST) Lamotrigine 6.4 3.0 - 14.0 ug/mL [facility] Specimen Serum Performing Organization Address City/[facility] Ph one Number [facility] [address] [place] [address] 1321 PATHOLOGY * Lamotrigine level (01/11/2020 12:47 PM EST) Lamotrigine 10.0 3.0 - 14.0 ug/mL [facility] Specimen Serum Performing Organization Address City/[facility] Ph one Number [facility] [address] [place] [address] 1321 PATHOLOGY * Lamotrigine level (01/11/2020 11:48 AM EST) Lamotrigine Quantity Not Sufficient 3.0 - 14.0 ug/mL [facility] Comment: [facility] at Specimen Hemolyzed CG Notified [place]/[id number] 01/11/20 [id number]. Specimen Serum Performing Organization Address City/[facility] Ph one Number [facility] PATHOLOGY AT [address] [place] [address] [facility] [address] [place] [address] at CG * Beta Hcg, Quant (01/11/2020 11:43 AM EST) Beta HCG, Quant <1 <5 m[IU]/mL [facility] at CG Specimen Plasma Performing Organization Address City/State/Zipcode Ph one Number 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, without mention of intractabl e epilepsy documented in this encounter Administered Medications Action Date Dose Rate Site Medication Order MAR Action acetaminophen (TYLENOL) tablet 650 mg 650 mg, Oral, Every 6 hours PRN, Mild Pain (Pain Scale Score 1-3), Moderate Pain (Pain Scale Score 4-6), Starting Sat01/11/20 at 0753, For 30 days, Maximum daily dose of acetaminophen is 3,000 mg from all sources in 24 hours., 01/15/2020 9:01 AM EST 10 mg ARIPiprazole (ABILIFY) tablet 10 mg Given 10 mg, Oral, 2 Times Daily, First dose on Sat01/11/20 at 2100, For 30 days 10 mg Given 01/14/2020 8:31 PM EST 10 mg Given 01/14/2020 8:47 AM EST bisacodyl (DULCOLAX) suppository 10 mg 10 mg, Rectal, Every 72 hours PRN, Constipation, Starting Sat01/11/20 at 0753, For 30 days, Hold if patient has had a BM in the past 2 days., 01/15/2020 9:01 AM EST 10 mg busPIRone (BUSPAR) tablet 10 mg Given 10 mg, Oral, 2 Times Daily, First dose on Sat01/11/20 at 2100, For 30 days 10 mg Given 01/14/2020 8:31 PM EST 10 mg Given 01/14/2020 8:48 AM EST calcium carbonate (TUMS) chewable table t 500 mg 500 mg, Oral, Daily PRN, Indigestion, Heartburn, Starting Sat01/11/20 at 0753 , For 30 days 01/15/2020 9:01 AM EST 10 mg cetirizine (ZYRTEC) tablet 10 mg Given 10 mg, Oral, Daily Standard, First dos e on Sat01/12/20 at 0900, For 30 days 10 mg Given 01/14/2020 8:47 AM EST 10 mg Given 01/13/2020 8:14 AM EST dextrose infusion 5 % at 0.2-10 mL/hr, Intravenous, PRN, For Meds, Starting Sat01/11/20 at 0753, For 30 days diphenhydrAMINE (BENADRYL) capsule 25 m g 25 mg, Oral, Every 6 hours PRN, Itching, Starting Sat01/11/20 at 0753, For 30 days 01/15/2020 9:01 AM EST 1 tablet drospirenone-ethinyl estradiol (GIANVI) Given 3-0.02 MG per tablet 1 tablet 1 tablet, Oral, Daily Standard, First dose on Sat01/12/20 at 0900, For 30 days, Pharmacy does not stock Gianvi. Patient's Own medication being used for this order, 1 tablet Given 01/14/2020 8:48 AM EST 1 tablet Given 01/13/2020 8:13 AM EST 01/15/2020 9:01 AM EST 25 mg hydrOXYzine (ATARAX) tablet 25 mg Given 25 mg, Oral, Three Times Daily Standard, First dose (after last modification) on Sat01/11/20 at 1600, For 30 days 25 mg Given 01/14/2020 10:00 PM EST 25 mg Given 01/14/2020 4:34 PM EST 01/15/2020 9:01 AM EST 1 drop hypromellose (GENTEAL) 0.3 % ophthalmic Given gel 1 drop 1 drop, Both Eyes, 2 Times Daily, First dose (after last modification) on Sat01/11/20 at 1045, For 30 days 1 drop Given 01/14/2020 8:32 PM EST 1 drop Given 01/14/2020 8:48 AM EST ibuprofen (MOTRIN) tablet 200 mg 200 mg, Oral, Every 6 hours PRN, Mild Pain (Pain Scale Score 1-3), Fever, Starting Sat01/11/20 at 0753, For 30 days, Take with food., 01/15/2020 8:58 AM EST 400 mg lamoTRIgine (LaMICtal) tablet 400 mg Given 400 mg, Oral, 2 Times Daily, First dose on Sat01/14/20 at 1130, For 30 days 400 mg Given 01/14/2020 8:31 PM EST 400 mg Given 01/14/2020 12:12 PM EST magnesium hydroxide (MILK OF MAGNESIA) 400 MG/5ML suspension 45 mL 45 mL, Oral, Nightly PRN, Constipation , Starting Sat01/11/20 at 0753, For 30 days, If serum creatinine > 2 notify provider before administering., NaCl infusion 0.9 % at 0.2-10 mL/hr, Intravenous, PRN, For Meds, Starting Sat01/11/20 at 0753, For 30 days ondansetron (ZOFRAN) tablet 4 mg 4 mg, Oral, Every 8 hours PRN, Nausea , Starting Sat01/11/20 at 0753, For 30 days senna (SENOKOT) syrup 10 mL 10 mL, Oral, Nightly PRN, Constipation , Starting Sat01/11/20 at 0753, For 30 days, Use NG tube nightly as needed if no BM on the third day., 01/12/2020 11:32 PM EST 1 tablet senna tablet 2 tablet Given 2 tablet, Oral, Nightly PRN, Constipation, Starting Sat01/11/20 at 0753, For 30 days 01/15/2020 9:01 AM EST 3 mLs sodium chloride (preservative free) 0.9 New Bag % flush 3 mL 3 mL, Intravenous, Every 8 hours Standard (3 times per day), First dose on Sat01/11/20 at 0900, For 30 days, Saline Lock. Flush Q8H and after each use to Saline Lock., 3 mLs New Bag 01/14/2020 11:37 PM EST 3 mLs New Bag 01/14/2020 4:34 PM EST sodium chloride (preservative free) 0.9 % flush 3 mL 3 mL, Intravenous, PRN, Line Care, Starting Sat01/11/20 at 0753, For 30 days, Saline Lock. Flush Q8H and after each use to Saline Lock., 01/15/2020 9:00 AM EST 37.5 mg venlafaxine (EFFEXOR-XR) 24 hr capsule Given 37.5 mg 37.5 mg, Oral, Daily Standard, First dose on Sat01/12/20 at 0900, For 30 days, Do not crush or chew To be given with venlafaxine XR 75 mg to get 112.5 mg, 37.5 mg Given 01/14/2020 8:47 AM EST 37.5 mg Given 01/13/2020 8:13 AM EST 01/15/2020 8:59 AM EST 75 mg venlafaxine (EFFEXOR-XR) 24 hr capsule Given 75 mg 75 mg, Oral, Daily Standard, First dos e on Sat01/12/20 at 0900, For 30 days, Do not crush or chew To be given with venlafaxine XR 37.5 mg to get 112.5 mg, 75 mg Given 01/14/2020 8:48 AM EST 75 mg Given 01/13/2020 8:13 AM EST 01/15/2020 9:00 AM EST 2,000 Units vitamin D3 (CHOLECALCIFEROL) tablet Given 2,000 Units 2,000 Units, Oral, Daily Standard, First dose on Sat01/12/20 at 0900, For 20 days, 25 mcg vitamin D3 = 1,000 international units vitamin D3., 2,000 Units Given 01/14/2020 8:48 AM EST 2,000 Units Given 01/13/2020 8:13 AM EST Action Date Dose Rate Site Medication Order MAR Action 01/13/2020 7:01 PM EST 5 mg diazePAM (VALIUM) injection 5 mg Given by IV 5 mg, Intravenous, Once PRN, Give for push 1st GTC, Starting Sat01/13/20 at 1254, For 4 days, Give indicated order dose for 1st GTC, 01/14/2020 6:04 PM EST 25 mg hydrOXYzine (ATARAX) tablet 25 mg Given 25 mg, Oral, Once, [facility] 01/14/20 at 1815, For 1 dose 01/12/2020 10:46 AM EST 200 mg lamoTRIgine (LaMICtal) tablet 200 mg Given 200 mg, Oral, 2 Times Daily, First dose (after last modification) on Sat 0 at 1000, For 1 dose 01/12/2020 1:18 PM EST 200 mg lamoTRIgine (LaMICtal) tablet 200 mg Given 200 mg, Oral, Once, Sat01/12/20 at 1300 , For 1 dose 01/12/2020 9:04 PM EST 200 mg lamoTRIgine (LaMICtal) tablet 200 mg Given 200 mg, Oral, 2 Times Daily, First dose (after last reorder) on Sat01/12/20 at 2100, For 1 dose 01/13/2020 9:40 PM EST 200 mg lamoTRIgine (LaMICtal) tablet 200 mg Given 200 mg, Oral, Once, Sat01/13/20 at 2100 , For 1 dose 01/11/2020 8:27 PM EST 400 mg lamoTRIgine (LaMICtal) tablet 400 mg Given 400 mg, Oral, 2 Times Daily, First dose on Sat01/11/20 at 2100, For 1 dose documented in this encounter
--- OUTSIDE RECORDS SUMMARY | 2020-03-23 13:46 | CCD | Continuity of Care Document ---
Author Odilia Pineda PA-C Organization Unknown Address [facility] [address] [place] [address] Phone [phone] Problems Active Problems Provider Date Anxiety state [...] Date Location Provider Dx Diagnosis Office Visit 02/08/2020 11:[facility] Alejo Duron PA-C F84.0 Autistic disorder F79 Unspecified intellectual dis abilities F41.9 Anxiety disorder, unspecifie d Assessments Date Code Description Provider 02/08/2020 F84.0 Autistic disorder Alejo Duron PA-C 02/08/2020 F79 Unspecified intellectual disabil kemi Duron PA-C 02/08/2020 F41.9 Anxiety disorder, unspecified Ca deborah Duron PA-C 12/29/2019 F84.0 Autistic disorder Alejo Duron PA-C 12/29/2019 F79 Unspecified intellectual disabil kemi Duron PA-C 12/29/2019 F41.9 Anxiety disorder, unspecified Ca deborah Duron PA-C 09/30/2019 F84.0 Autistic disorder Alejo Duron PA-C 09/30/2019 F79 Unspecified intellectual disabil kemi Duron PA-C Plan of Treatment No Information Available Functional Status Description No Information Available Mental Status Description No Information Available Referrals Description No Information Available
--- OUTSIDE RECORDS SUMMARY | 2020-03-23 13:47 | CCD ---
Author Author [facility] Organization [facility] Address Unknown Phone Unavailable Care Team Providers [facility]chandising Manager Name Role Phone Harry Mathews MD Unavailable Unavailable Harry Mathews MD Unavailable Unavailable Harry Mathews MD Unavailable Unavailable Harry Mathews MD Unavailable Unavailable Harry Mathews MD Unavailable Unavailable Harry Mathews MD Unavailable Unavailable Harry Mathews MD Unavailable Unavailable Harry Mathews MD Unavailable Unavailable Harry Mathews MD Unavailable Unavailable Harry Mathews MD Unavailable Unavailable Harry Mathews MD Unavailable Unavailable Harry Mathews MD Unavailable Unavailable Harry Mathews MD Unavailable Unavailable Harry Mathews MD Unavailable Unavailable Harry Mathews MD Unavailable Unavailable Harry Mathews MD Unavailable Unavailable Harry Mathews MD Unavailable Unavailable Harry Mathews MD Unavailable Unavailable Harry Mathews MD Unavailable Unavailable Harry Mathews MD Unavailable Unavailable Harry Mathews MD Unavailable Unavailable Harry Mathews MD Unavailable Unavailable Harry Mathews MD Unavailable Unavailable Harry Mathews MD Unavailable Unavailable Harry Mathews MD Unavailable Unavailable Harry Mathews MD Unavailable Unavailable Harry Mathews MD Unavailable Unavailable Harry Mathews MD Unavailable Unavailable Harry Mathews MD Unavailable Unavailable Harry Mathews MD Unavailable Unavailable Harry Mathews MD Unavailable Unavailable Harry Mathews MD Unavailable Unavailable Harry Mathews MD Unavailable Unavailable Harry Mathews MD Unavailable Unavailable Harry Mathews MD Unavailable Unavailable Harry Mathews MD Unavailable Unavailable Harry Mathews MD Unavailable Unavailable Harry Mathews MD Unavailable Unavailable Harry Mathews MD Unavailable Unavailable Harry Mathews MD Unavailable Unavailable Harry Mathews MD Unavailable Unavailable Harry Mathews MD Unavailable Unavailable Harry Mathews MD Unavailable Unavailable Harry Mathews MD Unavailable Unavailable Harry Mathews MD Unavailable Unavailable Harry Mathews MD Unavailable Unavailable Harry Mathews MD Unavailable Unavailable Hurricane Mills, Nadine PA Unavailable Unavailable Sergio, Nadine PA Unavailable Unavailable Sergio, Nadine PA Unavailable Unavailable Hurricane Mills, Nadine PA Unavailable Unavailable Trickey, J Meli PA Unavailable Unavailable Trickey, J Meli PA Unavailable Unavailable Trickey, J Meli PA Unavailable Unavailable Trickey, J Meli PA Unavailable Unavailable Trickey, J Meli PA Unavailable Unavailable Trickey, J Meli PA Unavailable Unavailable Trickey, J Meli PA Unavailable Unavailable Trickey, J Meli PA Unavailable Unavailable Trickey, J Meli PA Unavailable Unavailable Trickey, J Meli PA Unavailable Unavailable Trickey, J Meli PA Unavailable Unavailable Trickey, J Meli PA Unavailable Unavailable Trickey, J Meli PA Unavailable Unavailable Trickey, J Meli PA Unavailable Unavailable Trickey, J Meli PA Unavailable Unavailable Trickey, J Meli PA Unavailable Unavailable Trickey, J Meli PA Unavailable Unavailable Trickey, J Meli PA Unavailable Unavailable Trickey, J Meli PA Unavailable Unavailable Trickey, J Meli PA Unavailable Unavailable Trickey, J Meli PA Unavailable Unavailable Trickey, J Meli PA Unavailable Unavailable Trickey, J Meli PA Unavailable Unavailable Trickey, J Meli PA Unavailable Unavailable Trickey, J Meli PA Unavailable Unavailable Trickey, J Meli PA Unavailable Unavailable Trickey, J Meli PA Unavailable Unavailable Trickey, J Meli PA Unavailable Unavailable Trickey, J Meli PA Unavailable Unavailable Trickey, J Meli PA Unavailable Unavailable Trickey, J Meli PA Unavailable Unavailable Trickey, J Meli PA Unavailable Unavailable Trickey, J Meli PA Unavailable Unavailable Trickey, J Meli PA Unavailable Unavailable Trickey, J Meli PA Unavailable Unavailable Trickey, J Meli PA Unavailable Unavailable Trickey, J Meli PA Unavailable Unavailable Trickey, J Meli PA Unavailable Unavailable Trickey, J Mlei PA Unavailable Unavailable Trickey, J Meli PA Unavailable Unavailable Trickey, J Meli PA Unavailable Unavailable Trickey, J Meli PA Unavailable Unavailable Trickey, J Meli PA Unavailable Unavailable Trickey, J Meli PA Unavailable Unavailable Trickey, J Meli PA Unavailable Unavailable Trickey, J Meli PA Unavailable Unavailable Trickey, J Meli PA Unavailable Unavailable Trickey, J Meli PA Unavailable Unavailable Trickey, J Meli PA Unavailable Unavailable Trickey, J Meli PA Unavailable Unavailable Trickey, J Meli PA Unavailable Unavailable Trickey, J Meli PA Unavailable Unavailable Sergio, Nadine PA Unavailable Unavailable Mouthcard, F Steve PA Unavailable Unavailable Sonia, F Steve PA Unavailable Unavailable Sonia, F Steve PA Unavailable Unavailable Sonia, F Steve PA Unavailable Unavailable Mouthcard, F Steve PA Unavailable Unavailable Mouthcard, F Steve PA Unavailable Unavailable Sonia, F Steve PA Unavailable Unavailable Sonia, F Steve PA Unavailable Unavailable Sonia, F Steve PA Unavailable Unavailable Mouthcard, F Steve PA Unavailable Unavailable Michelle Pretty MD Unavailable Unavailable Michelle Pretty MD Unavailable Unavailable Michelle Pretty MD Unavailable Unavailable Michelle Pretty MD Unavailable Unavailable Michelle Pretty MD Unavailable Unavailable Michelle Pretty MD Unavailable Unavailable Michelle Pretty MD Unavailable Unavailable Michelle Pretty MD Unavailable Unavailable Michelle Pretty MD Unavailable Unavailable Michelle Pretty MD Unavailable Unavailable Michelle Pretty MD Unavailable Unavailable Michelle Pretty MD Unavailable Unavailable Michelle Pretty MD Unavailable Unavailable Michelle Pretty MD Unavailable Unavailable Michelle Pretty MD Unavailable Unavailable Michelle Pretty MD Unavailable Unavailable Michelle Pretty MD Unavailable Unavailable Michelle Pretty MD Unavailable Unavailable Michelle Pretty MD Unavailable Unavailable Michelle Pretty MD Unavailable Unavailable Michelle Pretty MD Unavailable Unavailable Michelle Pretty MD Unavailable Unavailable Michelle Pretty MD Unavailable Unavailable Hadian, Mor Unavailable Unavailable Hadian, Mor Unavailable Unavailable Hadian, Mor Unavailable Unavailable Hadian, Mor Unavailable Unavailable Hadian, Mor Unavailable Unavailable Hadian, Mor Unavailable Unavailable Hadian, Mor Unavailable Unavailable Hadian, Mor Unavailable Unavailable Hadian, Mor Unavailable Unavailable Hadian, Mor Unavailable Unavailable Hadian, Mor Unavailable Unavailable Hadian, Mor Unavailable Unavailable Hadian, Mor Unavailable Unavailable Hadian, Mor Unavailable Unavailable Hadian, Mor Unavailable Unavailable Hadian, Mor Unavailable Unavailable Hadian, Mor Unavailable Unavailable Hadian, Mor Unavailable Unavailable Hadian, Mor Unavailable Unavailable Hadian, Mor Unavailable Unavailable Hadian, Mor Unavailable Unavailable Hadian, Mor Unavailable Unavailable Hadian, Mor Unavailable Unavailable Hadian, Mor Unavailable Unavailable Hadian, Mor Unavailable Unavailable Hadian, Mor Unavailable Unavailable Hadian, Mor Unavailable Unavailable Hadian, Mor Unavailable Unavailable Hadian, Mor Unavailable Unavailable Hadian, Mor Unavailable Unavailable Hadian, Mor Unavailable Unavailable Hadian, Mor Unavailable Unavailable Hadian, Mor Unavailable Unavailable Hurricane Mills, Nadine PA Unavailable Unavailable Hurricane Mills, Nadine PA Unavailable Unavailable Sergio, Nadine PA Unavailable Unavailable Sergio, Nadine PA Unavailable Unavailable Trickey, J Meli PA Unavailable Unavailable Trickey, J Meli PA Unavailable Unavailable Trickey, J Meli PA Unavailable Unavailable Trickey, J Meli PA Unavailable Unavailable Trickey, J Meli PA Unavailable Unavailable Trickey, J Meli PA Unavailable Unavailable Trickey, J Meli PA Unavailable Unavailable Trickey, J Meli PA Unavailable Unavailable Trickey, J Meli PA Unavailable Unavailable Trickey, J Meli PA Unavailable Unavailable Trickey, J Meli PA Unavailable Unavailable Trickey, J Meli PA Unavailable Unavailable Trickey, J Meli PA Unavailable Unavailable Trickey, J Meli PA Unavailable Unavailable Trickey, J Meli PA Unavailable Unavailable Trickey, J Meli PA Unavailable Unavailable Trickey, J Meli PA Unavailable Unavailable Trickey, J Meli PA Unavailable Unavailable Trickey, J Meli PA Unavailable Unavailable Trickey, J Meli PA Unavailable Unavailable Trickey, J Meli PA Unavailable Unavailable Trickey, J Meli PA Unavailable Unavailable Trickey, J Meli PA Unavailable Unavailable Trickey, J Meli PA Unavailable Unavailable Trickey, J Meli PA Unavailable Unavailable Trickey, J Meli PA Unavailable Unavailable Trickey, J Meli PA Unavailable Unavailable Trickey, J Meli PA Unavailable Unavailable Trickey, J Meli PA Unavailable Unavailable Trickey, J Meli PA Unavailable Unavailable Trickey, J Meli PA Unavailable Unavailable Trickey, J Meli PA Unavailable Unavailable Trickey, J Meli PA Unavailable Unavailable Trickey, J Meli PA Unavailable Unavailable Trickey, J Meli PA Unavailable Unavailable Trickey, J Meli PA Unavailable Unavailable Trickey, J Meli PA Unavailable Unavailable Trickey, J Meli PA Unavailable Unavailable Trickey, J Meli PA Unavailable Unavailable Trickey, J Meli PA Unavailable Unavailable Trickey, J Meli PA Unavailable Unavailable Trickey, J Meli PA Unavailable Unavailable Trickey, J Meli PA Unavailable Unavailable Trickey, J Meli PA Unavailable Unavailable Trickey, J Meli PA Unavailable Unavailable Trickey, J Meli PA Unavailable Unavailable Trickey, J Meli PA Unavailable Unavailable Trickey, J Meli PA Unavailable Unavailable Trickey, J Meli PA Unavailable Unavailable Trickey, J Meli PA Unavailable Unavailable Trickey, J Meli PA Unavailable Unavailable Trickey, J Meli PA Unavailable Unavailable Porter PATRICIA DPM Unavailable Unavailable Porter PATRICIA DPM Unavailable Unavailable Porter PATRICIA DPM Unavailable Unavailable Porter PATRICIA DPM Unavailable Unavailable Porter PATRICIA DPM Unavailable Unavailable Porter PATRICIA DPM Unavailable Unavailable Porter PATRICIA DPM Unavailable Unavailable Porter PATRICIA DPM Unavailable Unavailable Porter PATRICIA DPM Unavailable Unavailable Porter PATRICIA DPM Unavailable Unavailable Porter PATRICIA DPM Unavailable Unavailable Porter PATRICIA DPM Unavailable Unavailable Porter PATRICIA DPM Unavailable Unavailable Porter PATRICIA DPM Unavailable Unavailable Porter PATRICIA DPM Unavailable Unavailable Porter PATRICIA DPM Unavailable Unavailable Porter PATRICIA DPM Unavailable Unavailable Porter PATRICIA DPM Unavailable Unavailable Porter PATRICIA DPM Unavailable Unavailable Porter PATRICIA DPM Unavailable Unavailable Porter PATRICIA DPM Unavailable Unavailable Porter PATRICIA DPM Unavailable Unavailable JENNIFER, Porter HURST DPM Unavailable Unavailable JENNIFER, Porter HURST DPM Unavailable Unavailable JENNIFER, Porter HURST DPM Unavailable Unavailable JENNIFER, R ARIS DPM Unavailable Unavailable JENNIFER, R ARIS DPM Unavailable Unavailable MAJAK, R ARIS DPM Unavailable Unavailable MAJJENNIFER, R ARIS DPM Unavailable Unavailable MAJAK, R ARIS DPM Unavailable Unavailable MANN, J ZOË PA Unavailable Unavailable MANN, J ZOË PA Unavailable Unavailable MANN, J ZOË PA Unavailable Unavailable MANN, J ZOË PA Unavailable Unavailable MANN, J ZOË PA Unavailable Unavailable MANN, J ZOË PA Unavailable Unavailable MANN, J ZOË PA Unavailable Unavailable MANN, J ZOË PA Unavailable Unavailable MANN, J ZOË PA Unavailable Unavailable MANN, J ZOË PA Unavailable Unavailable MANN, J ZOË PA Unavailable Unavailable MANN, J ZOË PA Unavailable Unavailable MANN, J ZOË PA Unavailable Unavailable MANN, J ZOË PA Unavailable Unavailable MANN, J ZOË PA Unavailable Unavailable MANN, J ZOË PA Unavailable Unavailable MANN, J ZOË PA Unavailable Unavailable MANN, J ZOË PA Unavailable Unavailable MANN, J ZOË PA Unavailable Unavailable MANN, J ZOË PA Unavailable Unavailable MANN, J ZOË PA Unavailable Unavailable MANN, J ZOË PA Unavailable Unavailable MANN, J ZOË PA Unavailable Unavailable MANN, J ZOË PA Unavailable Unavailable MANN, J ZOË PA Unavailable Unavailable MANN, J ZOË PA Unavailable Unavailable MANN, J ZOË PA Unavailable Unavailable MANN, J ZOË PA Unavailable Unavailable MANN, J ZOË PA Unavailable Unavailable MANN, J ZOË PA Unavailable Unavailable MANN, J ZOË PA Unavailable Unavailable MANN, J ZOË PA Unavailable Unavailable MANN, J ZOË PA Unavailable Unavailable MANN, J ZOË PA Unavailable Unavailable MANN, J ZOË PA Unavailable Unavailable MANN, J ZOË PA Unavailable Unavailable MANN, J ZOË PA Unavailable Unavailable MANN, J ZOË PA Unavailable Unavailable MANN, J ZOË PA Unavailable Unavailable MANN, J ZOË PA Unavailable Unavailable MANN, J ZOË PA Unavailable Unavailable MANN, J ZOË PA Unavailable Unavailable MANN, J ZOË PA Unavailable Unavailable MANN, J ZOË PA Unavailable Unavailable MANN, J ZOË PA Unavailable Unavailable MANN, J ZOË PA Unavailable Unavailable MANN, J ZOË PA Unavailable Unavailable MANN, J ZOË PA Unavailable Unavailable MANN, J ZOË PA Unavailable Unavailable MANN, J ZOË PA Unavailable Unavailable MANN, J ZOË PA Unavailable Unavailable MANN, J ZOË PA Unavailable Unavailable MANN, J ZOË PA Unavailable Unavailable MANN, J ZOË PA Unavailable Unavailable JAYSON, O AAMIR MD Unavailable Unavailable JAYSON, O AAMIR MD Unavailable Unavailable JAYSON, O AAMIR MD Unavailable Unavailable JAYSON, O AAMIR MD Unavailable Unavailable JAYSON, O AAMIR MD Unavailable Unavailable JAYSON, O AAMIR MD Unavailable Unavailable JAYSON, O AAMIR MD Unavailable Unavailable JAYSON, O AAMIR MD Unavailable Unavailable JAYSON, O AAMIR MD Unavailable Unavailable JAYSON, O AAMIR MD Unavailable Unavailable JAYSON, O AAMIR MD Unavailable Unavailable JAYSON, O AAMIR MD Unavailable Unavailable JAYSON, O AAMIR MD Unavailable Unavailable JAYSON, O AAMIR MD Unavailable Unavailable JAYSON, O AAMIR MD Unavailable Unavailable JAYSON, O AAMIR MD Unavailable Unavailable JAYSON, O AAMIR MD Unavailable Unavailable JAYSON, O AAMIR MD Unavailable Unavailable JAYSON, O AAMIR MD Unavailable Unavailable JAYSON, O AAMIR MD Unavailable Unavailable JAYSON, O AAMIR MD Unavailable Unavailable JAYSON, O AAMIR MD Unavailable Unavailable JAYSON, O AAMIR MD Unavailable Unavailable JAYSON, O AAMIR MD Unavailable Unavailable JAYSON, O AAMIR MD Unavailable Unavailable JAYSON, O AAMIR MD Unavailable Unavailable JAYSON, O AAMIR MD Unavailable Unavailable JAYSON, O AAMIR MD Unavailable Unavailable JAYSON, O AAMIR MD Unavailable Unavailable JAYSON, O AAMIR MD Unavailable Unavailable JAYSON, O AAMIR MD Unavailable Unavailable JAYSON, O AAMIR MD Unavailable Unavailable JAYSON, O AAMIR MD Unavailable Unavailable JAYSON, O AAMIR MD Unavailable Unavailable JAYSON, O AAMIR MD Unavailable Unavailable JAYSON, O AAMIR MD Unavailable Unavailable JAYSON, O AAMIR MD Unavailable Unavailable JAYSON, O AAMIR MD Unavailable Unavailable JAYSON, O AAMIR MD Unavailable Unavailable JAYSNO, O AAMIR MD Unavailable Unavailable JAYSON, O AAMIR MD Unavailable Unavailable Crys Bailey LMSW Unavailable Unavailable SHEILA WINTER Unavailable Unavailable Re-disclosure Warning The records that you are about to access may contain information from federally-assisted alcohol or drug abuse programs. If such information is present, then the following federally mandated warning applies: This information has been disclosed to you from records protected by federal confidentiality rules (42 CFR part 2). The federal rules prohibit you from making any further disclosure of this information unless further disclosure is expressly permitted by the written consent of the person to whom it pertains or as otherwise permitted by 42 CFR part 2. A general authorization for the release of medical or other information is NOT sufficient for this purpose. The Federal rules restrict any use of the information to criminally investigate or prosecute any alcohol or drug abuse patient.The records that you are about to access may contain highly sensitive health information, the redisclosure of which is protected by Article 27-F of the [facility] Public Health law. If you continue you may have access to information: Regarding HIV / AIDS; Provided by facilities licensed or operated by the [facility] Office of Mental Health; or Provided by the [facility] Office for People With Developmental Disabilities. If such information is present, then the following [facility] mandated warning applies: This information has been disclosed to you from confidential records which are protected by state law. State law prohibits you from making any further disclosure of this information without the specific written consent of the person to whom it pertains, or as otherwise permitted by law. Any unauthorized further disclosure in violation of state law may result in a fine or assisted sentence or both. A general authorization for the release of medical or other information is NOT sufficient authorization for further disc losure. Allergies and Adverse Reactions Type Description Substance Reaction Status Data Source(s ) Drug allergy Drug allergy No Known Allergies [facility] Drug Class NO KNOWN ALLERGIES NO KNOWN ALLERGIES [facility] Seasonal Seasonal Seasonal congestion/watery eyes Active e CW1 ([facility]) Seasonal Seasonal Seasonal congestion/watery eyes Active e CW1 ([facility]) Seasonal Seasonal Seasonal congestion/watery eyes Active e CW1 ([facility]) Seasonal Seasonal Seasonal congestion/watery eyes Active e CW1 ([facility]) Seasonal Seasonal Seasonal congestion/watery eyes Active e CW1 ([facility]) Family History Family Member Name Family Member Gender Family Member Status Date o f Status Description Data Source(s) Unknown Male Problem MEDENT ([facility] Unknown Male Problem MEDENT ([facility]) Encounters Encounter Providers Location Date Indications Data Source(s ) Outpatient [address], [facility] [id number] 03/10/2020 12:00:00 AM EST [facility] Outpatient Attender: Mor Braun ED-LABPNP 0 11:34:00 AM EST - 03/09/2020 11:35:00 AM EST REQUIRED [facility]SE [facility] REQUIRED [facility]SE Patient discharged. Outpatient Attender: Mor Villanuevafiorella ED-LABPNP 0 10:53:00 AM EST - 03/03/2020 10:54:00 AM EST RETURN TO [facility] Patient discharged. Emergency Attender: Steve GAO ED-ED 09:05:00 AM EST - 03/03/2020 10:00:00 AM EST ITCHING [facility] ITCHING Patient discharged. [place] [address] [address] 02/29/2020 12:00:00 AM EST eCW1 ([facility]) [place] [address] [address] 02/22/2020 12:00:00 AM EST eCW1 ([facility]) Outpatient CPSCAORT-LABEJN 02/11/2020 03:27:00 PM EST [facility] Outpatient Attender: Mor Braun ED-LABPNP 0 11:54:00 AM EST - 02/11/2020 11:55:00 AM EST NEED TO RETURN TO [facility] NEED TO RETURN TO [facility] HOME Patient discharged. [place] [address] [address] 02/10/2020 12:00:00 AM EST eCW1 ([facility]) Outpatient Attender: ZOË GAO 02/07 11:28:00 AM EST - 02/08/2020 11:28:00 AM EST [facility] Outpatient Attender: ZOË GAO Family [facility] 02/07 10:20:00 AM EST [facility] Office Visit Attender: Meli GOA Main office [facility] 02/01/2020 07:45:00 AM EST [facility] ([facility] 10:00:00 AM EST [facility] Inpatient Attender: SHEILA Dempsey itter: SHEILA WINTERReferrer: Meli GAO [id number] 01/11/2020 12:00:00 AM EST - 01/15/2020 03:10:00 PM EST Localization-related (focal) (partial) symptomatic epilepsy and epileptic syndromes with simple partial seizures, not intractable, without status epilepticus [facility] Localization-related (focal) (partial) s ymptomatic epilepsy and epileptic syndromes with simple partial seizures, not intractable, without status epilepticus Patient discharged. Outpatient Attender: Nadine COLLINSttender: Nadine GAO ED-LABPNP 01/10/2020 02:14:00 PM EST PREOP [facility] PREOP Outpatient Attender: Nadine Ramosender: Nadine GAO ED-LABPNP 01/06/2020 08:00:00 AM EDT PRE OP [facility] PRE OP Outpatient Attender: ZOË GAO 12/28 10:23:00 AM EDT - 12/29/2019 10:23:00 AM EDT [facility] Outpatient [facility]: [facility]29/2019 0 8:00:00 AM EDT COVID SCREENING [facility] COVID SCREENING Outpatient Attender: Meli GAO Main office - [facility] 10/30/2019 08:30:00 AM EDT MEDENT ([facility] Anand prado, KRISHAN) Outpatient Attender: ARIS PATRICIA [facility] 06/2019 09:30:00 AM EDT MEDENT ([facility] Outpatient Attender: ZOË GAO Family Practice 09/29 11:40:00 AM EDT [facility] Outpatient Attender: ZOË GAO 09/29 11:39:00 AM EDT - 09/30/2019 11:39:00 AM EDT [facility] Unknown [address] [address] 08/19/2019 12:00:00 AM EDT eCW1 ([facility]) [facility] [employer] Ex[employer] [address] [place] [address] 08/18/2019 12:00:00 AM EDT eCW1 ([facility]) [place] [address] [address] 08/13/2019 12:00:00 AM EDT eCW1 ([facility]) Unknown [address] [facility] [place] [address] 08/10/2019 12:00:00 AM EDT eCW1 ([facility]) Unknown [address] [facility] [place] [address] 08/10/2019 12:00:00 AM EDT eCW1 ([facility]) [facility] [address] [place] [address] 08/07/2019 12:00:00 AM EDT eCW1 ([facility]) Unknown [address] [facility] [place] [address] 08/05/2019 12:00:00 AM EDT eCW1 ([facility]) Outpatient CPSCAORT-LABEJN 07/31/2019 02:32:00 PM EDT [facility] Outpatient Attender: Mor Braun ED-LABPNP 0 09:29:00 AM EDT - 07/31/2019 09:30:00 AM EDT SCREENING [facility] SCREENING Patient discharged. [facility] [address] [place] [address] 07/13/2019 12:00:00 AM EDT eCW1 ([facility]) Outpatient Attender: Meli GAO [facility] n 07/07/2019 08:00:00 AM EDT MEDENT ([facility] KRISHAN prado) [facility] [address] [place] [address] 07/07/2019 12:00:00 AM EDT eCW1 ([facility]) [facility] Res[facility] [address] [place] [address] 06/26/2019 12:00:00 AM EDT eCW1 ([facility]) [facility] [place] [address] [address] 06/19/2019 12:00:00 AM EDT eCW1 ([facility]) [facility] [place] [address] [address] 06/18/2019 12:00:00 AM EDT eCW1 ([facility]) Outpatient Attender: ZOË GAO 06/10 09:05:00 AM EDT - 06/11/2019 09:05:00 AM EDT [facility] Outpatient Attender: ZOË GAO Family Practice 06/10 09:00:00 AM EDT [facility] Out[facility] Referrer: Meli GAO 06/09/2019 03:54:00 P M EDT [facility] [address] [place] [address] 06/09/2019 12:00:00 AM EDT eCW1 ([facility]) [facility] [address] [place] [address] 05/25/2019 12:00:00 AM EDT eCW1 ([facility]) [facility] [address] [place] [address] 05/12/2019 12:00:00 AM EST eCW1 ([facility]) [facility] Res[facility] [address] [place] [address] 05/08/2019 12:00:00 AM EST eCW1 ([facility]) Outpatient Attender: AAMIR Jarvis/Stacy/Lonnie/Natalee charlesl 04/13/2019 09:15:00 AM EST MEDENT ([facility]) Outpatient Attender: Meli GAO [facility] 04/02/2019 08:15:00 AM EST MEDENT ([facility]) [facility] [address] [place] [address] 03/31/2019 12:00:00 AM EST eCW1 ([facility]) Outpatient Referrer: Meli GOA 03/20/2019 10:53:00 A M EST [facility] Radiology Imaging Outpatient Attender: ZOË GAO 03/13 09:08:00 AM EST - 03/13/2019 09:08:00 AM EST [facility] GME Resident [address] [place] [address] 03/05/2019 12:00:00 AM EST eCW1 ([facility]) Outpatient Attender: Michelle Jarvis/Stacy/Lonnie/Ariel ndortega 02/25/2019 01:30:00 PM EST MEDENT ([facility]) [facility] GME Resident [address] [place] [address] 02/13/2019 12:00:00 AM EST eCW1 ([facility]) [facility] [address] [place] [address] 02/09/2019 12:00:00 AM EST eCW1 ([facility]) Outpatient Attender: Michelle Jarvis/Stacy/Lonnie/Ariel nd 02/03/2019 01:00:00 PM EST MEDENT ([facility]) [facility] GME Resident [address] [place] [address] 01/30/2019 12:00:00 AM EST eCW1 [facility] [place] [address] [address] 01/28/2019 12:00:00 AM EST eCW1 ([facility]) [facility] [place] [address] [address] 01/28/2019 12:00:00 AM EST eCW1 ([facility]) Outpatient Attender: Gregorio Mathews MD Main Office 01/23/2019 05:30:00 AM EST MEDENT ([facility]) Outpatient Attender: Marilee Bailey LMSW 10/2018 08:58:00 AM EST - 01/16/2019 08:58:00 AM EST [facility] Immunizations Vaccine Date Status Description Data Source(s) INFLUENZA VIRUS VACCINE QUADRIVALENT 2019- (6 MOS AN D UP) 01/06/2020 12:00:00 AM EDT completed [facility] Medications Medication Brand Name Start Date Product Form Dose Route Admi nistrative Instructions Pharmacy Instructions Status Indications Reaction Description Data Source(s) Sodium Chloride 0.111 MEQ/ML Nasal Fischer Saline Nasal Fischer 0.65 % Saline Nasal Fischer 0.65 % 03/10/2020 12:00:00 AM EST activ e Saline Nasal Fischer 0.65 % eCW1 ([facility]) Sodium Chloride 0.111 MEQ/ML Nasal Fischer Saline Nasal Fischer 0.65 % Saline Nasal Fischer 0.65 % 03/10/2020 12:00:00 AM EST activ e Saline Nasal Fischer 0.65 % eCW1 ([facility]) 20 mg 03/03/2020 12:00:00 AM EST tablet 8 TAKE TWO TABLETS BY MOUTH ONCE DAILY TAKE TWO TABLETS BY MOUTH ONCE DAILY SOLD: 03/03/2020 [facility] Fluticasone Propionate 50 MCG/ACT Fluticasone Propionate 50 MCG/ACT 02/22/2020 12:00:00 AM EST 1.0 {spray_in_each_nostril} acti ve Fluticasone Propionate 50 MCG/ACT eCW1 ([facility]) Fluticasone Propionate 50 MCG/ACT Fluticasone Propionate 50 MCG/ACT 02/22/2020 12:00:00 AM EST 1.0 {spray_in_each_nostril} acti ve Fluticasone Propionate 50 MCG/ACT eCW1 ([facility]) 24 HR Divalproex Sodium 500 MG Extended Release Oral T ablet [Depakote] Depakote ER 02/01/2020 12:00:00 AM EST ORAL active MEDENT ([facility]) Hydroxyzine Hydrochloride 50 MG Oral Tablet hydrOXYzin e (ATARAX) tablet 25 mg hydrOXYzine (ATARAX) tablet 25 mg 01/14/2020 06:15:00 PM EST 25 mg Oral completed 25 mg, Oral, Once, Sat01/14/20 a t 1815, For 1 dose [facility] Medication administered onsite lamotrigine 100 MG Oral Tablet lamoTRIgine (LaMICtal) tablet 400 mg lamoTRIgine (LaMICtal) tablet 400 mg 01/14/2020 11:30:00 AM EST 400 mg Oral active 400 mg, Oral, 2 Times Daily, First dose on Sat01/14/20 at 1130, For 30 days [facility] Medication administered onsite lamotrigine 100 MG Oral Tablet lamoTRIgine (LaMICtal) tablet 200 mg lamoTRIgine (LaMICtal) tablet 200 mg 01/13/2020 09:00:00 PM EST 200 mg Oral active 200 mg, Oral, Once, Sat01/13/20 at 2100, For 1 dose [facility] Medication administered onsite diazePAM (VALIUM) injection 5 mg [id number] 01/13/2020 12:54:25 PM EST 5 mg Intravenous aborted 5 mg, Intrave nous, Once PRN, Give for 1st GTC, Starting Sat01/13/20 at 1254, For 4 days
Give indicated order dose for 1st GTC
[facility] Medication administered onsite lamotrigine 100 MG Oral Tablet lamoTRIgine (LaMICtal) tablet 200 mg lamoTRIgine (LaMICtal) tablet 200 mg 01/12/2020 09:00:00 PM EST 200 mg Oral active 200 mg, Oral, 2 Times Daily, First dose (after last reorder) on Sat01/12/20 at 2100, For 1 dose [facility] Medication administered onsite lamotrigine 100 MG Oral Tablet lamoTRIgine (LaMICtal) tablet 200 mg lamoTRIgine (LaMICtal) tablet 200 mg 01/12/2020 01:00:00 PM EST 200 mg Oral active 200 mg, Oral, Once, Sat01/12/20 at 1300, For 1 dose [facility] Medication administered onsite lamotrigine 100 MG Oral Tablet lamoTRIgine (LaMICtal) tablet 200 mg lamoTRIgine (LaMICtal) tablet 200 mg 01/12/2020 10:00:00 AM EST 200 mg Oral active 200 mg, Oral, 2 Times Daily, First dose (after last modification) on Sat01/12/20 at 1000, For 1 dose [facility] Medication administered onsite cetirizine hydrochloride 10 MG Oral Tablet cetirizine (ZYRTEC) tablet 10 mg cetirizine (ZYRTEC) tablet 10 mg 01/12/2020 09:00:00 AM EST 10 mg Oral active 10 mg, Oral, Daily Standard, First dose on Sat01/12/20 at 0900, For 30 days [facility] Medication administered onsite drospirenone 3 MG / Ethinyl Estradiol 0. 02 MG Oral Tablet drospirenone-ethinyl estradiol (GIANVI) 3-0.02 MG per tablet 1 tablet drospirenone-ethinyl estradiol (GIANVI) 3-0.02 MG per tablet 1 tablet 01/12/2020 09:00:00 AM EST 1 {tbl} Oral active 1 tablet, Oral , Daily Standard, First dose on Sat01/12/20 at 0900, For 30 days
Pharmacy does not stock Gianvi.Patient's Own medication being used for this order
[facility] Medication administered onsite 24 HR venlafaxine 75 MG Extended Release Oral Capsule venlafaxine (EFFEXOR-XR) 24 hr capsule 75 mg venlafaxine (EFFEXOR-XR) 24 hr capsule 75 mg 0 09:00:00 AM EST 75 mg Oral active 75 mg, Oral, Daily Standard, First dose on Sat01/12/20 at 0900, For 30 days
Do not crush or chewTo be given with venlafaxine XR 37.5 mg to get 112.5 mg
[facility] Medication administered onsite 24 HR venlafaxine 37.5 MG Extended Relea se Oral Capsule venlafaxine (EFFEXOR-XR) 24 hr capsule 37.5 mg venlafaxine (EFFEXOR-XR) 24 hr capsule 37.5 mg 09:00:00 AM EST 37.5 mg Oral active 37.5 mg, Oral, Daily Standard, First dose on Sat01/12/20 at 0900, For 30 days
Do not crush or chewTo be given with venlafaxine XR 75 mg to get 112.5 mg
[facility] Medication administered onsite Cholecalciferol 1000 UNT Oral Tablet vit oconnell D3 (CHOLECALCIFEROL) tablet 2,000 Units vitamin D3 (CHOLECALCIFEROL) tablet 2,000 Units 2019 09:00:00 AM EST 2000 U Oral active 2,000 Un its, Oral, Daily Standard, First dose on Sat01/12/20 at 0900, For 20 days
25 mcg vitamin D3 = 1,000 international units vitamin D3.
[facility] Medication administered onsite aripiprazole 10 MG Oral Tablet ARIPiprazole (ABILIFY) tablet 10 mg ARIPiprazole (ABILIFY) tablet 10 mg 01/11/2020 09:00:00 PM EST 10 mg Oral active 10 mg, Oral, 2 Times Daily, First dose on Sat01/11/20 at 2100, For 30 days [facility] Medication administered onsite buspirone hydrochloride 10 MG Oral Tablet busPIRone (B USPAR) tablet 10 mg busPIRone (BUSPAR) tablet 10 mg 01/11/2020 09:00:00 PM EST 10 mg O ral active 10 mg, Oral, 2 Times Daily, First dose on Sat01/11/20 at 2100, For 30 days [facility] Medication administered onsite lamotrigine 100 MG Oral Tablet lamoTRIgine (LaMICtal) tablet 400 mg lamoTRIgine (LaMICtal) tablet 400 mg 01/11/2020 09:00:00 PM EST 400 mg Oral active 400 mg, Oral, 2 Times Daily, First dose on Sat01/11/20 at 2100, For 1 dose [facility] Medication administered onsite Hydroxyzine Hydrochloride 50 MG Oral Tablet hydrOXYzin e (ATARAX) tablet 25 mg hydrOXYzine (ATARAX) tablet 25 mg 01/11/2020 04:00:00 PM EST 25 mg Oral active 25 mg, Oral, Three Times Daily Standard, First dose (after last modification) on Sat01/11/20 at 1600, For 30 days [facility] Medication administered onsite hypromellose 0.003 MG/MG Ophthalmic Gel hypromellose (GENTEAL) 0.3 % ophthalmic gel 1 drop hypromellose (GENTEAL) 0.3 % ophthalmic gel 1 drop 04/2019 10:45:00 AM EST 1 [drp] Both Eyes active 1 drop, Both Eyes, 2 Times Daily, First dose (after last modification) on Sat01/11/20 at 1045, For 30 days [facility] Medication administered onsite sodium chloride (preservative free) 0.9 % flush 3 mL 01/11/2020 09:00:00 AM EST 3 mL Intravenous active [Ord er 1 Start] Name: Peripheral IV Signed Summary: Routine, CONTINUOUS, Starting Sat01/11/20 at 0754, Until Sat02/10/20, For 30 days [Order 1 End] [Order 2 Start] Name: sodium chloride (preservative fr ee) 0.9 % flush 3 mL Signed Summary: 3 mL, Intravenous, Every 8 hours Standard (3 times per day), First dose on Sat01/11/20 at 0900, For 30 days
Saline Lock. Flush Q8H and after each use to Saline Lock.
[Order 2 End] [Order 3 Start] Name: sodium chloride (preservative free) 0.9 % flush 3 mL Signed Summary: 3 mL, Intravenous, PRN, Line Care, Starting Sat01/11/20 at 0753, For 30 days
Saline Lock. Flush Q8H and after each use to Saline Lock.
[Order 3 End] [Order 4 Start] Name: Saline Lock order Signed Summary: Routine, ONCE, Sat01/11/20 at 0754, For 1 occurrence [Order 4 End] [Order 5 Start] Name: NaCl infusion 0.9 % Signed Summary: at 0.2-10 mL/hr, Intravenous, PRN, For Meds, Starting Sat01/11/20 at 0753, For 30 days [Order 5 End] [Order 6 Start] Name: dextrose infusion 5 % Signed Summary: at 0.2-10 mL/hr, Intravenous, PRN, For Meds, Starting Sat01/11/20 at 0753, For 30 days [Order 6 End] [facility] Medication administered onsite senna tablet 2 tablet 01/11/2020 07:53:10 AM EST 2 {tbl} Oral active [Order 1 Start] Name: senna tablet 2 tab let Signed Summary: 2 tablet, Oral, Nightly PRN, Constipation, Starting Sat01/11/20 at 0753, For 30 days [Order 1 End] [Order 2 Start] Name: senna (SENOKOT) syrup 10 mL Signed Summary: 10 mL, Oral, Nightly PRN, Constipation, Starting Sat01/11/20 at 0753, For 30 days
Use NG tube nightly as needed if no BM on the third day.
[Order 2 End] [facility] Medication administered onsite Ondansetron 4 MG Oral Tablet ondansetron (ZOFRAN) tabl et 4 mg ondansetron (ZOFRAN) tablet 4 mg 01/11/2020 07:53:09 AM EST 4 mg Oral active 4 mg, Oral, Every 8 hours PRN, Nausea, Starting Sat01/11/20 at 0753, For 30 days [facility] Medication administered onsite Magnesium Hydroxide 80 MG/ML Oral Suspen mary magnesium hydroxide (MILK OF MAGNESIA) 400 MG/5ML suspension 45 mL magnesium hydroxide (MILK OF MAGNESIA) 4 00 MG/5ML suspension 45 mL 01/11/2020 07:53:09 AM EST 45 mL Oral active 45 mL, Oral, Nightly PRN, Constipation, Starting Sat01/11/20 at 0753, For 30 days
If serum creatinine > 2 notify provider before administering.
[facility] Medication administered onsite Acetaminophen 325 MG Oral Tablet acetaminophen (TYLENO L) tablet 650 mg acetaminophen (TYLENOL) tablet 650 mg 01/11/2020 07:53:09 AM EST 65 0 mg Oral active 650 mg, Oral, E very 6 hours PRN, Mild Pain (Pain Scale Score 1- 3), Moderate Pain (Pain Scale Score 4-6), Starting Sat01/11/20 at 0753, For 30 days
Maximum daily dose of acetaminophen is 3,000 mg from all sources in 24 hours.
[facility] Medication administered onsite Bisacodyl 10 MG Rectal Suppository bisacodyl (DULCOLAX ) suppository 10 mg bisacodyl (DULCOLAX) suppository 10 mg 01/11/2020 07:53:09 AM EST 10 mg Rectal active 10 mg, Rectal, Every 72 hours PRN, Constipation, Starting Sat01/11/20 at 0753, For 30 days
Hold if patient has had a BM in the past 2 days.
[facility] Medication administered onsite alginic acid 200 MG / Calcium Carbonate 80 MG / magnesium trisilicate 20 MG / Sodium Bicarbonate 70 MG Oral Tablet calcium carbonate (TUMS) chewable tablet 500 mg calcium carbonate (TUMS) chewable tablet 500 mg 2019 07:53:09 AM EST 500 mg Oral active 500 mg, Oral, Daily PRN, Indigestion, Heartburn, Starting Sat01/11/20 at 0753, For 30 days [facility] Medication administered onsite Diphenhydramine Hydrochloride 25 MG Oral Capsule diphenhydrAMINE (BENADRYL) capsule 25 mg diphenhydrAMINE (BENADRYL) capsule 25 mg 01/11/2020 07 :53:09 AM EST 25 mg Oral active 25 mg, O ral, Every 6 hours PRN, Itching, Starting Sat01/11/20 at 0753, For 30 days [facility] Medication administered onsite Ibuprofen 200 MG Oral Tablet ibuprofen (MOTRIN) tablet 200 mg ibuprofen (MOTRIN) tablet 200 mg 01/11/2020 07:53:09 AM EST 200 mg Oral acti ve 200 mg, Oral, Every 6 hours PRN, Mild Pain (Pain Scale Score 1-3), Fever, Starting Sat01/11/20 at 0753, For 30 days
Take with food.
[facility] Medication administered onsite drospirenone 3 MG / Ethinyl Estradiol 0. 02 MG Oral Tablet Drospirenone-Ethinyl Estradiol 3-0.02 MG Oral Tablet (GIANVI) Drospirenone-Ethinyl Estradiol 3-0.02 MG Oral Tablet (GIANVI) 01/04/2020 12:00:00 AM EDT 1 {tbl} Oral active Take [facility] MG Oral Tablet ARIPiprazole 20 MG Oral Tablet (ABILIFY) ARIPiprazole 20 MG Oral Tablet (ABILIFY) 12/27/2019 12:00:00 AM EDT 10 mg Oral active Take 10 mg by mouth Two Times Daily [facility] Hydroxyzine Hydrochloride 25 MG Oral Tab let hydrOXYzine HCl 25 MG Oral Tablet (ATARAX) hydrOXYzine HCl 25 MG Oral Tablet (ATARAX) 12/27/2019 12:00: 00 AM EDT 25 mg Oral active Take 25 mg by mo uth Three times daily [facility] lamotrigine 200 MG Oral Tablet lamoTRIgine 200 MG Oral Tablet (LaMICtal) lamoTRIgine 200 MG Oral Tablet (LaMICtal) 12/27/2019 12:00:00 AM EDT 400 mg Oral active Take 400 mg by mouth Two Times Daily [facility] 24 HR venlafaxine 37.5 MG Extended Relea se Oral Capsule Venlafaxine HCl ER 37.5 MG Oral Capsule Extended Release 24 Hour (EFFEXOR-XR) Venlafaxine HCl ER 37.5 MG Oral Capsule Extended Release 24 Hour (EFFEXOR-XR) 12/27/2019 12:00:00 AM EDT 37.5 mg Oral active Take 37.5 mg by mouth daily Take with 75 mg capsule. XPO=964.5 mg. [facility] buspirone hydrochloride 10 MG Oral Tablet Buspirone HCL 12/23/2019 12:00:00 AM EDT ORAL active MEDENT ([facility]) buspirone hydrochloride 10 MG Oral Table t busPIRone HCl 10 MG Oral Tablet (BUSPAR) busPIRone HCl 10 MG Oral Tablet (BUSPAR) 12/23/2019 12:00:00 AM EDT 10 mg Oral active Take 10 mg by mouth Two Times Daily [facility] 24 HR venlafaxine 75 MG Extended Release Oral Capsule Venlafaxine HCl ER 75 MG Oral Capsule Extended Release 24 Hour (EFFEXOR-XR) Venlafaxine HCl ER 75 MG Oral Capsule Extended Release 24 Hour (EFFEXOR-XR) 12/20/2019 12:00:00 AM EDT 75 mg Oral active Take 75 mg by mouth daily Take with 37.5 mg capsule. PNV=084.5 mg. [facility] aripiprazole 20 MG Oral Tablet Aripiprazole 10/26/2019 12:00:00 AM EDT ORAL active MEDENT ([facility]) Orthotics UNK 08/26/2019 12:00:00 AM EDT active Orthotics eCW1 ([facility]) Orthotics UNK 08/26/2019 12:00:00 AM EDT active Orthotics eCW1 ([facility]) Orthotics UNK 08/26/2019 12:00:00 AM EDT active Orthotics eCW1 ([facility]) Orthotics UNK 08/26/2019 12:00:00 AM EDT active Orthotics eCW1 ([facility]) Orthotics UNK 08/26/2019 12:00:00 AM EDT active Orthotics eCW1 ([facility]) lamotrigine 200 MG Oral Tablet Lamotrigine 08/17/2019 12:00:00 AM EDT ORAL active MEDENT ([facility]) 24 HR venlafaxine 75 MG Extended Release Oral Capsule Venlaf axine HCL ER 07/17/2019 12:00:00 AM EDT active MEDENT ([facility]) 10 mg 06/27/2019 12:00:00 AM EDT tablet 30 TAKE ONE TABLET BY MOUTH EVERY DAY TAKE ONE TABLET BY MOUTH EVERY DAY SOLD: 07/31/2019 [facility] 10 mg 06/27/2019 12:00:00 AM EDT tablet 30 TAKE ONE TABLET BY MOUTH EVERY DAY TAKE ONE TABLET BY MOUTH EVERY DAY SOLD: 06/30/2019 [facility] cetirizine hydrochloride 10 MG Oral Tablet [Zyrtec] Zy rtec Allergy 10 MG [facility]yrtec Allergy 10 MG 06/26/2019 12:00:00 AM EDT active 1 tablet eCW1 ([facility]) cetirizine hydrochloride 10 MG Oral Tablet [Zyrtec] Zy rtec Allergy 10 MG [facility] Allergy 10 MG 06/26/2019 12:00:00 AM EDT 1.0 {tablet} active Zyrtec Allergy 10 MG eCW1 ([facility]) cetirizine hydrochloride 10 MG Oral Tablet [Zyrtec] Zy rtec Allergy 10 MG Zyrtec Allergy 10 MG 06/26/2019 12:00:00 AM EDT 1.0 {tablet} active Zyrtec Allergy 10 MG eCW1 ([facility]) cetirizine hydrochloride 10 MG Oral Tablet [Zyrtec] Zy rtec Allergy 10 MG Zyrtec Allergy 10 MG 06/26/2019 12:00:00 AM EDT 1.0 {tablet} active Zyrtec Allergy 10 MG eCW1 ([facility]) cetirizine hydrochloride 10 MG Oral Tablet [Zyrtec] Zy rtec Allergy 10 MG Zyrtec Allergy 10 MG 06/26/2019 12:00:00 AM EDT 1.0 {tablet} active Zyrtec Allergy 10 MG eCW1 ([facility]) cetirizine hydrochloride 10 MG Oral Tablet [Zyrtec] Zy rtec Allergy 10 MG Zyrtec Allergy 10 MG 06/26/2019 12:00:00 AM EDT 1.0 {tablet} active Zyrtec Allergy 10 MG eCW1 ([facility]) cetirizine hydrochloride 10 MG Oral Tablet [Zyrtec] Zy rtec Allergy 10 MG Zyrtec Allergy 10 MG 06/26/2019 12:00:00 AM EDT 1.0 {tablet} active Zyrtec Allergy 10 MG eCW1 ([facility]) cetirizine hydrochloride 10 MG Oral Tablet [Zyrtec] Zy rtec Allergy 10 MG Zyrtec Allergy 10 MG 06/26/2019 12:00:00 AM EDT 1.0 {tablet} active Zyrtec Allergy 10 MG eCW1 ([facility]) cetirizine hydrochloride 10 MG Oral Tablet [Zyrtec] Zy rtec Allergy 10 MG Zyrtec Allergy 10 MG 06/26/2019 12:00:00 AM EDT 1.0 {tablet} active Zyrtec Allergy 10 MG eCW1 ([facility]) cetirizine hydrochloride 10 MG Oral Tablet [Zyrtec] Zy rtec Allergy 10 MG Zyrtec Allergy 10 MG 06/26/2019 12:00:00 AM EDT 1.0 {tablet} active Zyrtec Allergy 10 MG eCW1 ([facility]) 12 HR cetirizine hydrochloride 5 MG / Ps eudoephedrine Hydrochloride 120 MG Extended Release Oral Tablet [Zyrtec-D] Zyrtec-D Allergy & Congestion 5-120 MG Zyrtec-D Allergy & Congestion 5-120 MG 06/18/2019 12:00:00 AM EDT active 1 tablet as needed eCW1 ([facility]) Insurance Providers Payer name Policy type / Coverage type Policy ID Covered alliance party ID Covered alliance party's relationship to delgado Policy Delgado Plan Information EMEDNY [id number] SP [id number] MEDICARE [id number] SP [id number] MEDICAID [id number] S [id number] MEDICARE [id number] S [id number] BH MEDICAID [id number] 18 [id number] MEDICARE CO [id number] 18 [id number] MEDICAID M [id number] Self [id number] MEDICARE A [id number] Self [id number] MEDICAID [id number] SP [id number] MEDICARE C [id number] S [id number] MEDICAID [id number] S [id number] MEDICAID [id number] SP [id number] MEDICARE [id number] SP [id number] [id number] MEDICAID [id number] Medicaid Medigap Part B [id number] Self [id number] Medicare Part B Medicare Primary [id number] Self [id number] Medicaid Medicaid [id number] Self [id number] Medicare Medicare Primary [id number] Self [id number] ANSI-Medicaid [id number] ANSI-Medicare Part B [id number] ANSI-Commercial [id number] ANSI-Medicaid [id number] ANSI-Commercial [id number] ANSI-Medicare Part B [id number] Medicaid [facility] Part B [id number] Self [id number] Medicare Part B Medicare Primary [id number] Self [id number] Medicaid Medicaid [id number] Self [id number] Medicare Medicare Primary [id number] Self [id number] ANSI-Medicaid [id number] ANSI-Medicare Part B [id number] ANSI-Commercial [id number] ANSI-Medicare Part B [id number] ANSI-Commercial [id number] ANSI-Medicaid [id number] ANSI-Medicare Part B [id number] ANSI-Commercial [id number] ANSI-Medicaid [id number] Medicaid [facility] Part B [id number] Self [id number] Medicare Part B Medicare Primary [id number] Self [id number] *NOTFORTODAYSVISIT* SP *NOTFORTODAYSVISIT* Medicaid Medicaid [id number] Self [id number] Medicare Medicare Primary [id number] Self 9 [id number] ANSI-Medicaid [id number] ANSI-Medicare Part B [id number] ANSI-Commercial [id number] ANSI-Commercial [id number] ANSI-Medicaid [id number] ANSI-Medicare Part B [id number] ANSI-Commercial [id number] ANSI-Medicaid [id number] ANSI-Medicare Part B [id number] ANSI-Medicaid [id number] ANSI-Medicare Part B [id number] ANSI-Commercial [id number] Medicaid Medigap Part B [id number] Self [id number] Medicare Part B Medicare Primary [id number] Self [id number] BS [place] Medigap Part B [id number] Family Depend ent [id number] [employer]/MVP Medigap Part B [id number] Family Dependent [id number] [place] Medigap Part B [id number] Self [id number] Medicare [facility] Medicare Primary [id number] Self [id number] MEDICARE [id number] SP [id number] ANSI-Commercial [id number] ANSI-Medicare Part B [id number] ANSI-Medicaid [id number] ANSI-Commercial [id number] ANSI-Medicare Part B [id number] [facility]-Medicaid [id number] [facility]I-Commercial [id number] [facility]-Medicaid [id number] ANSI-Medicare Part B [id number] [facility]-Medicaid [id number] ANSI-Medicare Part B [id number] ANSI-Commercial [id number] ANSI-Medicare Part B [id number] ANSI-Commercial [id number] ANSI-Medicaid [id number] Medicaid Medigap Part B [id number] Self [id number] Medicare Part B Medicare Primary [id number] Self [id number] ANSI-Medicaid [id number] ANSI-Commercial [id number] ANSI-Medicare Part B [id number] ANSI-Commercial [id number] ANSI-Medicaid [id number] ANSI-Medicare Part B [id number] Medicaid Medigap Part B [id number] Self [id number] [id number] Medicare Part B Medicare Primary [id number] Self [id number] Medicaid Medigap Part B [id number] Self [id number] [id number] Medicare Part B Medicare Primary [id number] Self [id number] Medicaid Medigap Part B [id number] Self [id number] [id number] Medicare Part B Medicare Primary [id number] Self [id number] Medicaid Medigap Part B [id number] Self [id number] 12M Medicare Part B Medicare Primary [id number] Self [id number] MEDICARE [id number] SP [id number] Medicaid Medigap Part B [id number] Self [id number] 12M Medicare Part B Medicare Primary [id number] Self [id number] Medicaid Medigap Part B [id number] Self [id number] 12M Medicare Part B Medicare Primary [id number] Self [id number] Medicaid Medigap Part B [id number] Self [id number] 12M Medicare Part B Medicare Primary [id number] Self [id number] Medicaid Medigap Part B [id number] Self [id number] 12M Medicare Part B Medicare Primary [id number] Self [id number] MEDICAID [id number] Medicare Part B Medicare Primary Self Medicaid Medicaid 1 1 Self 1 1 Medicare Medicare Primary Self [place] 302/307 [id number] MEDICARE P [id number] S [id number] MEDICAID -O/P [id number] [place] -O/P [id number] 19 [id number] MEDICARE -O/P [id number] 18 [id number] MEDICAID -CLINIC [id number] [place] - CLINIC [id number] 19 [id number] MEDICARE - CLINIC [id number] 18 [id number] Problems, Conditions, and Diagnoses Code Display Name Description Problem Type Effective Dates Data Source(s) D86.9 77832605 Sarcoidosis Problem 06/26/2019 12:00:00 AM E DT eCW1 ([facility]) D86.9 [id number] Sarcoidosis Problem 06/26/2019 12:00:00 AM E DT eCW1 ([facility]) F419 Anxiety disorder, unspecified Anxiety disorder, unspec ified Diagnosis 02/08/2020 11:28:00 AM [facility] F79 Unspecified intellectual disabilities Unspecifie d intellectual disabilities Diagnosis 02/08/2020 11:28:00 AM [facility] F840 Autistic disorder Autistic disorder Diagnosis 02/08/2020 11:28:00 AM [facility] 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, not intractable, without status epilepticus Localization-related (focal) (partial) s ymptomatic epilepsy and epileptic syndromes with simple partial seizures, not intractable, without status epilepticus Diagnosis 01/15/2020 07:48:28 PM [facility] Localization-related epilepsy Localization-related epi lepsy Diagnosis 01/11/2020 07:35:00 AM [facility] r51 r51 Diagnosis 01/11/2020 07:35:00 AM [facility] r42 r42 Diagnosis 01/11/2020 07:35:00 AM [facility] g40.89 g40.89 Diagnosis 01/11/2020 07:35:00 AM [facility] g40.009 g40.009 Diagnosis 01/11/2020 07:35:00 AM [facility] Z20.828 Contact with and (suspected) exposure to other viral communicable diseases CONTACT W AND EXPOSURE TO OTH VIRAL COMMUNICABLE DISEASES Di agnosis 01/06/2020 08:00:00 AM [facility] Surgeries/Procedures Procedure Description Date Indications Data Source(s) EEG VIDEO MONITORING EEG VIDEO MONITORING Routine 01/15/2020 3:10 PM EST 01/15/2020 03:10:00 PM [facility] LAMOTRIGINE LAMOTRIGINE Routine 01/13/2020 5:41 AM EST 01/13/2020 05:41:00 AM [facility] LAMOTRIGINE LAMOTRIGINE Routine 01/11/2020 12:47 PM EST 01/11/2020 12:47:00 PM [facility] QUANTITATION DRUG NOT ELSEWHERE SPECIFIED LAMOTRIGINE Routi ne 01/11/2020 11:48 AM EST 01/11/2020 11:48:00 AM [facility] GONADOTROPIN CHORIONIC QUANTITATIVE BETA HCG, QUANT Routine 01/11/2020 11:43 AM EST 01/11/2020 11:43:00 AM [facility] PHYSICIAN TELEPHONE EVALUATION 11-20 MIN 06/26/2019 12 :00:00 AM EDT eCW1 ([facility]) PHYSICIAN TELEPHONE EVALUATION 5-10 MIN 06/09/2019 12: 00:00 AM EDT eCW1 ([facility]) With Endobronchial Ultrasound Guided 02/18/2019 12:00: 00 AM EST [facility] ([facility]) Office Visit, Est Pt., Level 2 FC 01/30/2019 12:00:00 AM EST eCW1 ([facility]) Office Visit, Est Pt., Level 4 PC 01/30/2019 12:00:00 AM EST eCW1 ([facility]) Transitional Care NO CHARGE Visit 01/28/2019 12:00:00 AM EST eCW1 ([facility]) ERCP W/SPHINCTEROTOMY/PAPILLOTOMY 01/23/2019 12:00:00 AM EST [facility] ([facility]) Results ID Date Data Source [id number] 03/14/2020 10:17:00 AM EST [facility] Name Value Range Interpretation Code Description Data Mera rce(s) Supporting Document(s) Respiratory specimen severe acute respir atory syndrome coronavirus 2 (SARS-CoV-2) RNA [facility] This lab was ordered by víctor porras and reported by . ID Date Data Source [id number] 03/14/2020 10:14:00 AM EST [facility] Name Value Range Interpretation Code Description Data Mera rce(s) Supporting Document(s) Respiratory specimen severe acute respir atory syndrome coronavirus 2 (SARS-CoV-2) RNA [facility] This lab was ordered by saimaseymour porras and reported by . ID Date Data Source [id number] 03/14/2020 10:14:00 AM EST [facility] Name Value Range Interpretation Code Description Data Mera rce(s) Supporting Document(s) Respiratory specimen severe acute respir atory syndrome coronavirus 2 (SARS-CoV-2) RNA [facility] This lab was ordered by Stephanie porras and reported by . ID Date Data Source [id number] 03/10/2020 08:32:00 AM [facility] Name Value Range Interpretation Code Description Data Mera rce(s) Supporting Document(s) SARS-CoV-2 RNA INHOUSE Negative Normal (applies to non-n umeric results) [facility] THIS IS A STATE REPORTABLE COMMUNICABLE DISEASE. Testing was performed using the Rheonix COVID-19 MDx Assay. This test has been authorized by FDA under an (Emergency Use Authorization) EUA for use by authorized laboratories for individuals who are suspected of COVID-19 by their healthcare provider. This test is only authorized for the duration of the declaration that circumstances exist justifying the authorization of emergency use of in vitro diagnostic tests for detection and/or diagnosis of SARS-CoV-2. Methodology: Endpoint RT-PCR. Fact sheets for this EUA assay can be found at the following links: Providers: https://www.[employer].gov/media/224531/download Patients : https://www.fda.gov/media/574532/download THIS IS A [facility] REPORTABLE COMMUNICABLE DISEASE Negative results do not preclude SARS-CoV-2 infection and should not be used as the sole basis for patient management decisions. Negative results must be combined with clinical observations,patient history, and epidemiological information. ID Date Data Source [id number] 03/03/2020 06:48:00 PM [facility] Name Value Range Interpretation Code Description Data Mera rce(s) Supporting Document(s) SARS-CoV-2 RNA INHOUSE Negative Normal (applies to non-n umeric results) [facility] THIS IS A STATE REPORTABLE COMMUNICABLE DISEASE. Testing was performed using the Rheonix COVID-19 MDx Assay. This test has been authorized by FDA under an (Emergency Use Authorization) EUA for use by authorized laboratories for individuals who are suspected of COVID-19 by their healthcare provider. This test is only authorized for the duration of the declaration that circumstances exist justifying the authorization of emergency use of in vitro diagnostic tests for detection and/or diagnosis of SARS-CoV-2. Methodology: Endpoint RT-PCR. Fact sheets for this EUA assay can be found at the following links: Providers: https://www.fda.gov/media/465677/download Patients : https://www.fda.gov/media/046432/download THIS IS A [facility] REPORTABLE COMMUNICABLE DISEASE Negative results do not preclude SARS-CoV-2 infection and should not be used as the sole basis for patient management decisions. Negative results must be combined with clinical observations,patient history, and epidemiological information. ID Date Data Source [id number] 02/23/2020 07:15:00 AM EST [facility] Name Value Range Interpretation Code Description Data Mera rce(s) Supporting Document(s) SARS-CoV-2 GITA result Not Detected Normal (applies to non- numeric results) [facility] This nucleic acid amplification test was developed and its performance characteristics determined by [employer]. Nucleic acid amplification tests include PCR and TMA. This test has not been FDA cleared or approved. This test has been authorized by FDA under an Emergency Use Authorization (EUA). This test is only authorized for the duration of time the declaration that circumstances exist justifying the authorization of the emergency use of in vitro diagnostic tests for detection of SARS-CoV-2 virus and/or diagnosis of COVID-19 infection under section 564(b)(1) of the Act, 21 U.S.C. 360bbb-3(b) (1), unless the authorization is terminated or revoked sooner. When diagnostic testing is negative, the possibility of a false negative result should be considered in the context of a patient's recent exposures and the presence of clinical signs and symptoms consistent with COVID-19. An individual without symptoms of COVID-19 and who is not shedding SARS-CoV-2 virus would expect to have a negative (not detected) result in this assay. Performed at: [facility] [address] [facility], [place], [place] [id number] Front End Web Developer: Nelsy Ordoñez PhD, Phone: [phone] Testing was performed using the Aptima SARS-CoV-2 assay. This nucleic acid amplification test was developed and its performance characteristics determined by [employer]. Nucleic acid amplification tests include PCR and TMA. This test has not been FDA cleared or approved. This test has been authorized by FDA under an Emergency Use Authorization (EUA). This test is only authorized for the duration of time the declaration that circumstances exist justifying the authorization of the emergency use of in vitro diagnostic tests for detection of SARS-CoV-2 virus and/or diagnosis of COVID-19 infection under section 564(b)(1) of the Act, 21 U.S.C. 360bbb-3(b) (1), unless the authorization is terminated or revoked sooner. When diagnostic testing is negative, the possibil ity of a false negative result should be considered in the context of a patient's recent exposures and the presence of clinical signs and symptoms consistent with COVID-19. An individual without symptoms of COVID-19 and who is not shedding SARS-CoV-2 virus would expect to have a negative (not detected) result in this assay. Performed at: [address] [id number] Front End Web Developer: Ana Taylor MD, Phone: [phone] ID Date Data Source [id number] 02/11/2020 11:29:00 AM EST [facility] Name Value Range Interpretation Code Description Data Mera rce(s) Supporting Document(s) SARS coronavirus 2 RNA [facility] This lab was ordered by Cathi woods and reported by [facility]. ID Date Data Source [id number] 02/14/2020 02:39:00 PM [facility] Name Value Range Interpretation Code Description Data Mera rce(s) Supporting Document(s) COVID-19 Result Not Detected Normal (applies to non-numeri c results) [facility] This nucleic acid amplification test was developed and its performance characteristics determined by [employer]. Nucleic acid amplification tests include PCR and TMA. This test has not been FDA cleared or approved. This test has been authorized by FDA under an Emergency Use Authorization (EUA). This test is only authorized for the duration of time the declaration that circumstances exist justifying the authorization of the emergency use of in vitro diagnostic tests for detection of SARS-CoV-2 virus and/or diagnosis of COVID-19 infection under section 564(b)(1) of the Act, 21 U.S.C. 360bbb-3(b) (1), unless the authorization is terminated or revoked sooner. When diagnostic testing is negative, the possibility of a false negative result should be considered in the context of a patient's recent exposures and the presence of clinical signs and symptoms consistent with COVID-19. An individual without symptoms of COVID-19 and who is not shedding SARS-CoV-2 virus would expect to have a negative (not detected) result in this assay. Performed at: [facility] [employer] [place], [place] [id number] Front End Web Developer: Nelsy Ordoñez PhD, Phone: [phone] Testing was performed using the Aptima SARS-CoV-2 assay. This nucleic acid amplification test was developed and its performance characteristics determined by [employer]. Nucleic acid amplification tests include PCR and TMA. This test has not been FDA cleared or approved. This test has been authorized by FDA under an Emergency Use Authorization (EUA). This test is only authorized for the duration of time the declaration that circumstances exist justifying the authorization of the emergency use of in vitro diagnostic tests for detection of SARS-CoV-2 virus and/or diagnosis of COVID-19 infection under section 564(b)(1) of the Act, 21 U.S.C. 360bbb-3(b) (1), unless the authorization is terminated or revoked sooner. When diagnostic testing is negative, the possibi lity of a false negative result should be considered in the context of a patient's recent exposures and the presence of clinical signs and symptoms consistent with COVID-19. An individual without symptoms of COVID-19 and who is not shedding SARS-CoV-2 virus would expect to have a negative (not detected) result in this assay. Performed at: [address] [id number] Front End Web Developer: Ana Taylor MD, Phone: [phone] ID Date Data Source [id number] 01/16/2020 12:26:11 PM [facility] Name Value Range Interpretation Code Description Data Mera rce(s) Supporting Document(s) Discharge Summary [facility] BLUBQw3pGkJPKdDx73/CWWbtLMRcv6JpTGmjOJn9WRjzJJUaT2RcLLQ0zL3cDJG4NFzMSzXkUpLwITB7 [facility] [file] TjEQI0BbM5ZQLgNnGdEAyqQ9J1PB6nFADPUz1+DLsopRSwvTxcWNLBHaBcVyD5XVzqQLBCLx5H ID Date Data Source [id number] 01/15/2020 03:36:41 PM [facility] Name Value Range Interpretation Code Description Data Mera e(s) Supporting Document(s) History and Physical [facility] CBUXIl1mYkPYZpVu03/HHKorBMTpi1LcQHpvLPx8LLnrKUGqL6YtOMF9qP6zMUL3JSwVLtBlXkWpKMH4 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 [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] ICAgICAgICAgICAgICAgICAgICAgICAgICAgICAgICAgICAgICAgICAgICAgICAgICAgICAgICAgICAg ICAgICAgICAgICAgICAgICAgICAgICAgICAgICAgDQogICAgICAgICAgICAgICAgICAgICAgICAgICAg ICAgICAgICAgICAgICAgICAgICAgICAgICAgICAgIC AgICAgICAgICAgICAgICAgICAgICAgICAgICAgICAgICAgICAgICAgDQogICAgICAgICAgICAgICAgIC AgICAgICAgICAgICAgICAgICAgICAgICAgICAgICAgICAgICAgICAgICAgICAgICAgICAgICAgICAgIC AgICAgICAgICAgICAgICAgICAgICAgDQogICAgICAg ICAgICAgICAgICAgICAgICAgICAgICAgICAgICAgICAgICAgICAgICAgICAgICAgICAgICAgICAgICAg ICAgICAgICAgICAgICAgICAgICAgICAgICAgICAgICAgDQogICAgICAgICAgICAgICAgICAgICAgICAg ICAgICAgICAgICAgICAgICAgICAgICAgICAgICAgIC AgICAgICAgICAgICAgICAgICAgICAgICAgICAgICAgICAgICAgICAgICAgDQogICAgICAgICAgICAgIC AgICAgICAgICAgICAgICAgICAgICAgICAgICAgICAgICAgICAgICAgICAgICAgICAgICAgICAgICAgIC AgICAgICAgICAgICAgICAgICAgICAgICAgDQogICAg ICAgICAgICAgICAgICAgICAgICAgICAgICAgICAgICAgICAgICAgICAgICAgICAgICAgICAgICAgICAg ICAgICAgICAgICAgICAgICAgICAgICAgICAgICAgICAgICAgDQogICAgICAgICAgICAgICAgICAgICAg ICAgICAgICAgICAgICAgICAgICAgICAgICAgICAgIC AgICAgICAgICAgICAgICAgICAgICAgICAgICAgICAgICAgICAgICAgICAgICAgDQogICAgICAgICAgIC AgICAgICAgICAgICAgICAgICAgICAgICAgICAgICAgICAgICAgICAgICAgICAgICAgICAgICAgICAgIC AgICAgICAgICAgICAgICAgICAgICAgICAgICAgDQog ICAgICAgICAgICAgICAgICAgICAgICAgICAgICAgICAgICAgICAgICAgICAgICAgICAgICAgICAgICAg HTFfFBMjQNDsQFIcTYDwZVRoANWdMRBpHRWgMKUnHJVwSJToIOSoSNo2T7pqICTyRGZyBP2kLQe4Ry1+ SZdOPnPbUZB4dvSohI1IPH9fo6ZhNMygRWObb1QhHK y6QY9RCIVeCEdzNV3FBNakeo8OBYByBVVdqCLWn9ddAiEjWQS8IIZlKihiDO6VRTMmW2okhvPwYDPwSE IJTOnnVFMRJSqqYMMEXRGzHZTwGnCuBoLvEARpXTMtXAGYQXK1DWMwEoMuYWgvCB7Sn5YeiKX5VSz+Pg 0KHU5ue5PzAZbcDHQmBO9prr1MLLgLKtGvU2XboiN7 OLS7CFTeUv8IBDZuUNSlvOOnOCLuMNMETiNaR4ScaO80FVQDSd9+BBcxfqUfTnhAIoX2QRLng0IbCOe0 GH6CNBNhGJa2yTKtWULHSIQ7WFGksRPoLSKSLOLzzCsdSGEmFFDbIMVvRy5aZBBqAATtXbM0JTCYOD1C WJMeJKHduODvSUKmQPCYLH3UXKaxPRC7GNYpkuBlxC MmFQpyFH4NNRZowzOkQdJzSMZMKAu+Ns8FQL0vj5VfYPkyGfShJN9fof4EOJwUUqYfN2W3uPSiK5U0EB zoDp8DRGDbEXYbZiYrIRSPWOtrFK1MMM4uorN4UJ2JrRRpWVWzAUZraAQdIHt6U59eaTRnDCsjKF6VDY A+Dania+El1PVFUqPEOeQCFoZgBpONWKNeIbZ8ViI9VU u4NlI6AyBT42bSuekwBnMGtpMY7GSM7uTAJtKPEONG1CjEWjhI0ricGfFGSbNQGKKaDqT01puAYzWWGl VQNmRWNcCb6LVOElU7EgsyMmkGzpujScROWxJLHNHF0JMXetwoVnaQSglMhfLR55iYlrEM9SAh1NZiQf AZ3rwn9QwPQrNp7HHNSzNm8XTPEjCNLrHEWbARD3NC GwFvEeAGsyXFGgFZUzXLU8EUIsZBFuNL3ADjEoTTItIza0YHHhQTYgFSZbfp7KGXNxAYK0SJMlNQFhAN MoWKXmPGvrDKBsABMcPJK0SQMwOIOeUL6EZqThQNMaUAAaMHFlRLLbJZRlbz0LLHLaZBMcXMY7ENCfAL MjBMAvXVknEWFgCLH4IRW9OSLjNGDnUS2GZoWgODSv GPkzMiYpEAWsOYToxd2ZPLNxQPGeTKt0DZFmIZTaZTZiUKvbHVDjEWAoYKn1IWBqDNPrNI5IPyAqGNHo CES4OlZvUGSyEUNslr3QLPPjAXIhWZwwGEBcUWZhCBKaWKyrXHSaAMY3VbJ1SGBtFYQxDN1TTgLeRUCt DYz2DcRlWBCmUVZzak6WGFNmBUCpAEvcRnNcOFUzSE AoWJvdTAIcXSCkFHX6QQDlODBwRS9YOmSlCJOvCqT5WKDbYLXkKSJfor5GMBLlIIBsAhN1AbEnPLCgUN ApZUqzKMDdISUoCRU9CEPdWLBgVN3XNbNgQVItEpKrOASgTVBeAGMoib9ZCLZtAOJvYwM9FqQlDQUsQT LfEHycMLEvVDF6HgY0AEDzAVIkYZ2NMyDuHATmGiX0 FYpjIIRcMTFxkk4XEUEqQUDdURz1HUYoKUVaEUQgCGtdPKByFGD1WbW8PRKuAARePO8USaQuSQZbQtR9 RBGfCMOoBDTsmj5ZVTWaOYVyXsB6GVCaVYYoFOSsXYauJRGqPFV6CLfsGLTpWZDjPS5JWpDrWSNaUsh3 TNneKRDwENNatg3NEJEpGSUuQqi8TfSjANZfHGNzWK dtBOIcSSV0FlP9FCYiUZVgXQ5SFnKnPMZjJrdkBJCaZLAvCWStru7VMHLaBGSjTDp0FPRlFFRwWWPpHM wxTFTpOSBeJzf2QXCgQEKkEA3QPwNpKEDtCFRiQAmuZCWeHOYvlp8IQZGoOST4ORD9ETNzBXGsZCAeIN q8utVoeFMiPXf3BR5TK8YbxcTnQflXQr5Bw705SMR7 RJZnIy6MH4aiUd0pPONqHQTOMr0HGWq4OXclT8StFOKxCDDpNtV7ReRkUJwfXyXcCbe7ZbNjENY+IDww I8ApVhOxC3X5WmSsLYyvDgLxVYO8IWIeIyA7EcXkVG9tCKDEQu9+CFxwhHUuhWgeZMGREaLgFlL5UQiw ZHPPIi6N ID Date Data Source [id number] 01/13/2020 09:31:45 AM [facility] Name Value Range Interpretation Code Description Data Mera rce(s) Supporting Document(s) Lamotrigine [Mass/volume] in Serum or Plasma 6.4 ug/mL 3.0-14.0 [facility] ID Date Data Source [id number] 01/11/2020 04:48:59 PM [facility] Name Value Range Interpretation Code Description Data Mera rce(s) Supporting Document(s) Lamotrigine [Mass/volume] in Serum or Plasma 10.0 ug/mL 3.0-14.0 [facility] ID Date Data Source [id number] 01/11/2020 12:16:16 PM [facility] Name Value Range Interpretation Code Description Data Mera rce(s) Supporting Document(s) Lamotrigine [Mass/volume] in Serum or Plasma 3.0-14.0 [facility] Specimen HemolyzedNotified [place]/[id number] /EMU 01/11/20 1213 6515. ID Date Data Source [id number] 01/11/2020 12:40:51 PM [facility] Name Value Range Interpretation Code Description Data Mera rce(s) Supporting Document(s) Choriogonadotropin.beta subunit [Moles/volume] in Serum or Plasma <5 [facility] ID Date Data Source [id number] 01/19/2020 10:40:00 AM [facility] First test? NOEmployed in healthcare? NOSymptomatic per CDC? NOHospitalized? NOICU? NOResident in congregated care? ex [facility], [facility] NO? NO Name Value Range Interpretation Code Description Data Mera rce(s) Supporting Document(s) SARS-CoV-2 RNA Negative Normal (applies to non-numeric r esults) [facility] Negative results should be treated as pr esumptive and, if inconsistent with clinical signs and symptoms or necessary for patient management, should be tested with different authorized or cleared molecular tests. Negative results do not preclude SARS-CoV-2 infection and should not be used as the sole basis for patient management decisions. Negative results should be considered in the context of a patient???s recent exposures, history and the presence of clinical signs and symptoms consistent with COVID-19. This test has not been FDA cleared or approved; this test has been authorized by FDA under an Emergency Use Authorization for use by laboratories certified under the Clinical Laboratory Improvement Amendments of 1988 (CLIA), 42 U.S.C. ???263a, to perform moderate complexity/high complexity tests and at the Point of Care (POC), i.e., in patient care settings operating under a CLIA Certificate of Waiver, Certificate of Compliance, or Certificate of Accreditation. Factsheets for healthcare providers: https://www.fda.gov/media/594562/download Factsheets for patients: https://www.fda.gov/media/116919/download The [employer] NOW Instrument is a rapid molecular in vitro diagnostic test utilizing an isothermal nucleic acid amplification technology intended for the qualitative detection of nucleic acid from the SARS-CoV-2 viral RNA. THIS IS A STATE REPORTABLE COMMUNICABLE DISEASE. Manual entry verified by Mayelin Denson 01/19/20 1038 ID Date Data Source [id number] 01/19/2020 12:50:00 PM EST [facility] COVID-19 Patient Ethnicity Not or LatinoCOVID-19 Patient Race WhiteCOVID-19 Specimen Source Nasopharyngeal Name Value Range Interpretation Code Description Data Mera rce(s) Supporting Document(s) SARS-CoV-2 Specimen Source Normal (applies to n on-numeric results) [facility] SARS-CoV-2 RNA Normal (applies to non-numeric r esults) [facility] Patient Race Normal (applies to non-numeric result s) [facility] Patient Ethnicity Normal (applies to non-numeri c results) [facility] See scanned report ID Date Data Source [id number] 12/10/2019 08:10:00 AM EDT [facility] ([facility], ) Name Value Range Interpretation Code Description Data Mera rce(s) Supporting Document(s) FVC-Pred 4.03 L [facility] ([facility], ) PDFReport Laboratory test result [facility] ([facility], ) FVC-LLN 3.29 L [facility] ([facility]) FVC-%Pred-Pre 30 L [facility] ([facility], ) FVC-Pre 1.22 L [facility] ([facility]) Fev1-Pred 3.40 L [facility] ([facility]) Fev1-Pre 1.21 L [facility] ([facility], ) Fev1-%Pred-Pre 35 L [facility] ([facility], ) Fev1-LLN 2.77 L [facility] ([facility]) Fev6-Pre 1.22 L [facility] ([facility]) Fev6-Pred 3.99 L [facility] ([facility]) Fev6-%Pred-Pre 30 L [facility] ([facility], ) Fev6-LLN 3.27 L [facility] ([facility]) Cuj3gbr-Bxf 99 % [facility] ([facility]) Ecx3iin-Atgm 85 % [facility] ([facility]) Mhb8mec-Tbik 99 % [facility] ([facility]) Bde8mwz-ENF 75 % [facility] ([facility]) Hqk4czb-%Pred-Pre 116 % [facility] ([facility]) FEFMax-Pred 7.30 L/E/sec [facility] ([facility], [facility]) [id number]-Ynj 100 % MEDENT ([facility]) Iui4snr-%Pred-Pre 100 % MEDENT ([facility]) FEFMax-%Pred-Pre 26 L/E/sec MEDENT ([facility]) FEFMax-Pre 1.96 L/E/sec MEDENT ([facility]) FEFMax-LLN 5.48 L/E/sec MEDENT ([facility]) Ymv0024-Xenj 3.61 L/E/sec MEDENT ([facility]) Vsc8454-OLI 2.29 L/E/sec MEDENT ([facility]) Zmn4657-%Pred-Pre 45 L/E/sec MEDENT ([facility]) Xvs3489-Gvl 1.64 L/E/sec MEDENT ([facility]) ExpTime-Pre 1.59 sec MEDENT ([facility]) Ihs8vjc0-Zrkp 86 % MEDENT ([facility]) Rxf5vsl3-%Pred-Pre 115 % MEDENT ([facility]) Goe5acp3-Vnr 99 % MEDENT ([facility]) Khy4yhr0-CSO 77 % MEDENT ([facility]) ID Date Data Source [id number] 11/06/2019 03:49:00 PM EDT MEDENT ([facility]) Name Value Range Interpretation Code Description Data Mera rce(s) Supporting Document(s) Lamotrigine [Mass/volume] in Serum or Plasma 9.0 ug/mL 2.0-20.0 [facility] ([facility]) Testing on this sample was performed by homogeneous enzyme immunoassay. Detection Limit = 1.0 Performed at: [employer] [address] [id number] [address] End Web Developer: Nilam Mendoza [facility], Phone: [phone] ID Date Data Source [id number] 08/02/2019 03:39:00 PM EDT [facility] Name Value Range Interpretation Code Description Data Mera rce(s) Supporting Document(s) Respiratory specimen severe acute respir atory syndrome coronavirus 2 (SARS-CoV-2) RNA [facility] ital This lab was ordered by [facility] peggy and reported by [facility]. ID Date Data Source [id number] 08/02/2019 04:11:00 PM EDT [facility] PLEASE FAX TO [phone] COVID-19 Spe cimen Source NASOPHARYNGEALIs Patient admitted or to be admitted? N Name Value Range Interpretation Code Description Data Mera rce(s) Supporting Document(s) SARS-CoV-2 RNA Negative Normal (applies to non-numeric r esults) [facility] 2019-novel Coronavirus (2019-nCoV) not d etected by the qRT-PCR assay. Consider testing for other respiratory viruses or re-collecting for 2019-nCoV testing. Note: Optimum timing for peak viral levels during infections caused by 2019- nCoV have not been determined. Collection of multiple specimens from the same patient may be necessary to detect the virus. Limitations Positive results are indicative of active infection with SARS-CoV-2 but do not rule out bacterial infection or co-infection with other viruses. The agent detected may not be the definite cause of disease. In addition, detection of viral RNA may not indicate the presence of infectious virus or that SARS-CoV-2 is the causative agent for clinical symptoms. Negative results do not preclude SARS-CoV-2 infection and should not be used as the sole basis for patient management decisions. Negative results must be combined with clinical observations, patient history, and epidemiological information. False negative results may also occur if amplification inhibitors are present in the specimen or if inadequate numbers of organisms are present in the specimen. Optimum specimen types and timing for peak viral levels during infections caused by SARS-CoV-2 have not been fully determined. Collection of multiple specimens (types and time points) from the same patient may be necessary to detect the virus. The test was validated for use with upper respiratory specimens obtained via nasopharyngeal or oropharyngeal swabs in VTM, UTM, M4, M5, M6, saline, and MTM media. The performance of this test has not been established for other specimens. Specimens collected using other FDA recommended Specimen Collection Materials listed in the FDA COVID-19 [employer] communication (June 04, 2019) are processed with the caveat that they were not all validated for use with this test and the result must be interpreted in this context. Furthermore, a false negative results may occur if a specimen is improperly collected, transported or handled. If the virus mutates in the RT- PCR target region, SARS-CoV-2 may not be detected or may be detected less predictably. Inhibitors or other types of interference may produce a false negative result. An interference study evaluating the effect of common cold medications was not performed. This test is not FDA-cleared but its performance characteristics were established by our CLIA-certified, CAP-accredited, high complexity laboratory in accordance with CLIA regulations, [employer] (CAP) guidelines (May 28, 2019), and FDA guidance (May 09, 2019). This test is only for use under the Food and Drug Administration's Emergency Use Authorization. THIS IS A STATE REPORTABLE COMMUNICABLE DISEASE. Performing Lab Normal (applies to non-numeric r esults) [facility] Is Patient Admitted or Awaiting Admissio n?:N COVID-19 Specimen Source: ANIMAL THERAPIST NOTE: RESULTS HAVE BEEN REFORMATTED PLEASE REVIEW RESULTS CAREFULLY THE LOCATION OF INFORMATION MAY HAVE CHANGED Test performed or referred by The [address] [address] ID Date Data Source [id number] 08/02/2019 03:39:00 PM EDT [facility] PLEASE FAX TO [phone] COVID-19 Spe cimen Source NASOPHARYNGEALIs Patient admitted or to be admitted? N Name Value Range Interpretation Code Description Data Mera rce(s) Supporting Document(s) SARS-CoV-2 RNA Negative Normal (applies to non-numeric r esults) [facility] 2019-novel Coronavirus (2019-nCoV) not d etected by the qRT-PCR assay. Consider testing for other respiratory viruses or re-collecting for 2019-nCoV testing. Note: Optimum timing for peak viral levels during infections caused by 2019- nCoV have not been determined. Collection of multiple specimens from the same patient may be necessary to detect the virus. Limitations Positive results are indicative of active infection with SARS-CoV-2 but do not rule out bacterial infection or co-infection with other viruses. The agent detected may not be the definite cause of disease. In addition, detection of viral RNA may not indicate the presence of infectious virus or that SARS-CoV-2 is the causative agent for clinical symptoms. Negative results do not preclude SARS-CoV-2 infection and should not be used as the sole basis for patient management decisions. Negative results must be combined with clinical observations, patient history, and epidemiological information. False negative results may also occur if amplification inhibitors are present in the specimen or if inadequate numbers of organisms are present in the specimen. Optimum specimen types and timing for peak viral levels during infections caused by SARS-CoV-2 have not been fully determined. Collection of multiple specimens (types and time points) from the same patient may be necessary to detect the virus. The test was validated for use with upper respiratory specimens obtained via nasopharyngeal or oropharyngeal swabs in VTM, UTM, M4, M5, M6, saline, and MTM media. The performance of this test has not been established for other specimens. Specimens collected using other FDA recommended Specimen Collection Materials listed in the FDA COVID-19 [employer] communication (June 04, 2019) are processed with the caveat that they were not all validated for use with this test and the result must be interpreted in this context. Furthermore, a false negative results may occur if a specimen is improperly collected, transported or handled. If the virus mutates in the RT- PCR target region, SARS-CoV-2 may not be detected or may be detected less predictably. Inhibitors or other types of interference may produce a false negative result. An interference study evaluating the effect of common cold medications was not performed. This test is not FDA-cleared but its performance characteristics were established by our CLIA-certified, CAP-accredited, high complexity laboratory in accordance with CLIA regulations, [employer] (CAP) guidelines (May 28, 2019), and FDA guidance (May 09, 2019). This test is only for use under the Food and Drug Administration's Emergency Use Authorization. THIS IS A STATE REPORTABLE COMMUNICABLE DISEASE. Performing Lab Normal (applies to non-numeric r esults) [facility] Is Patient Admitted or Awaiting Admissio n?:N COVID-19 Specimen Source: ANIMAL THERAPIST NOTE: RESULTS HAVE BEEN REFORMATTED PLEASE REVIEW RESULTS CAREFULLY THE LOCATION OF INFORMATION MAY HAVE CHANGED Test performed or referred by The [address] [address] ID Date Data Source [id number] 05/21/2019 06:33:00 AM EDT [facility] Name Value Range Interpretation Code Description Data Mera rce(s) Supporting Document(s) QuantiFERON Criteria (SEE NOTE) Normal (applies to non-num cliff results) MEDENT ([facility], ) will discuss at follow-up QuantiFERON TB2 Ag Value 0.04 IU/ml Normal (applies to non -numeric results) [facility] ([facility], ) will discuss at follow-up QuantiFERON TB1 Ag Value 0.05 IU/ml Normal (applies to non -numeric results) [facility] ([facility], ) will discuss at follow-up QuantiFERON Nil Value 0.03 IU/ml Normal (applies to non-nu meric results) [facility] ([facility], ) will discuss at follow-up QuantiFERON Mitogen Value >10.00 IU/ml Normal (applies to non-numeric results) [facility] ([facility], ) will discuss at follow-up QuantiFERON-TB Gold Plus Negative Normal (applies to non -numeric results) [facility] ([facility]) will discuss at follow-up ID Date Data Source [id number] 05/21/2019 06:33:00 AM EDT [facility] ([facility]) Name Value Range Interpretation Code Description Data Mera rce(s) Supporting Document(s) Aspergillus Flavus Meghan Negative Normal (applies to non-n umeric results) [facility] ([facility]) will discuss at follow-up Aspergillus Fumigatus Meghan Negative Normal (applies to no n-numeric results) [facility] ([facility]) will discuss at follow-up Aspergillus Niger Meghan Negative Normal (applies to non-nu meric results) [facility] ([facility]) will discuss at follow-up ID Date Data Source [id number] 05/21/2019 06:33:00 AM EDT [facility] ([facility]) Name Value Range Interpretation Code Description Data Mera rce(s) Supporting Document(s) Histoplasmosis Antibody Negative Normal (applies to non- numeric results) [facility] ([facility]) will discuss at follow-up Coccidioides sp Ab [Units/volume] in Serum 0.3 IV Normal (applies to non- numeric results) [facility] ([facility]) will discuss at follow-up Blastomyces Antibody Level Negative Normal (applies to n on-numeric results) [facility] ([facility]) will discuss at follow-up Cryptococcus sp Ag [Presence] in Serum by Immunoassay Negative Normal (applies to non-numeric results) [facility] ([facility]) will discuss at follow-up ID Date Data Source [id number] 05/21/2019 06:33:00 AM EDT [facility] ([facility]) Name Value Range Interpretation Code Description Data Mera rce(s) Supporting Document(s) Ast/Sgot 14 U/L 7-37 Normal (applies to non-numeric resul ts) [facility] ([facility]) will discuss at follow-up Alt/SGPT 25 U/L 12-78 Normal (applies to non-numeric resul ts) [facility] ([facility]) will discuss at follow-up Bilirubin,Total 0.3 mg/dL 0.2-1.0 Normal (applies to non-numeric results) [facility] ([facility]) will discuss at follow-up Alkaline Phosphatase 204 U/L 45-117 Above high normal [facility] ([facility]) will discuss at follow-up Bilirubin,Direct 0.2 mg/dL 0.0-0.2 Normal (applies to non-numeric results) [facility] ([facility]) will discuss at follow-up Total Protein 6.8 GM/DL 6.4-8.2 Normal (applies to non-numeric re sults) [facility] ([facility]) will discuss at follow-up Albumin/Globulin Ratio 0.84 1.00-1.93 Below low normal [facility] ([facility]) will discuss at follow-up Albumin 3.1 GM/DL 3.2-5.2 Below low normal [facility] ( [facility]) will discuss at follow-up ID Date Data Source [id number] 05/21/2019 06:33:00 AM EDT [facility] ([facility]) Name Value Range Interpretation Code Description Data Mrea rce(s) Supporting Document(s) Creatinine For GFR 0.80 mg/dL 0.55-1.30 Normal (applies to non -numeric results) [facility] ([facility]) will discuss at follow-up Glomerular Filtration Rate > 60.0 Normal (applies to n on-numeric results) [facility] ([facility]) will discuss at follow-up ID Date Data Source [id number] 05/21/2019 06:33:00 AM EDT [facility] ([facility]) Name Value Range Interpretation Code Description Data Mera rce(s) Supporting Document(s) White Blood Count 8.2 10 4.0-10.0 Normal (applies to non-numeri c results) [facility] ([facility]) will discuss at follow-up Red Blood Count 4.69 10 4.00-5.40 Normal (applies to non-numeric results) [facility] ([facility]) will discuss at follow-up Hematocrit 40.8 % 36.0-47.0 Normal (applies to non-numeric resul ts) [facility] ([facility], ) will discuss at follow-up Hemoglobin 13.0 g/dL 12.0-15.5 Normal (applies to non-numeric resul ts) [facility] ([facility]) will discuss at follow-up Mean Corpuscular Volume 87.0 fl 80.0-96.0 Normal ( applies to non-numeric results) [facility] ([facility]) will discuss at follow-up Mean Corpuscular Hemoglobin 27.7 pg 27.0-33.0 Norm al (applies to non-numeric results) [facility] ([facility]) will discuss at follow-up Mean Corpuscular HGB Conc 31.9 g/dL 32.0-36.5 Below low normal [facility] ([facility]) will discuss at follow-up Red Cell Distribution Width 13.2 % 11.5-14.5 Norm al (applies to non-numeric results) [facility] ([facility]) will discuss at follow-up Platelet Count, Automated 371 10 150-450 Normal (applies to non-numeric results) [facility] ([facility]) will discuss at follow-up Lymph % 12.6 % 24.0-44.0 Below low normal [facility] ( [facility]) will discuss at follow-up [place] % 8.2 % 0.0-5.0 Above high normal [facility] ([facility]) will discuss at follow-up Neutrophils % 74.3 % 36.0-66.0 Above high normal MEDE NT ([facility]) will discuss at follow-up Baso % 0.7 % 0.0-1.0 Normal (applies to non-numeric resul ts) [facility] ([facility]) will discuss at follow-up Immature Granulocyte % 1.0 % 0-3.0 Normal (applies to non-n umeric results) [facility] ([facility]) will discuss at follow-up Eos % 3.2 % 0.0-3.0 Above high normal [facility] ([facility]) will discuss at follow-up Nucleated Red Blood Cell % 0.0 % 0-0 Normal (applies to n on-numeric results) [facility] ([facility], ) will discuss at follow-up Neutrophils # 6.1 10 1.5-8.5 Normal (applies to non-numeric re sults) [facility] ([facility]) will discuss at follow-up Lymph # 1.0 10 1.5-5.0 Below low normal [facility] ( [facility]) will discuss at follow-up Eos # 0.3 10 0.0-0.5 Normal (applies to non-numeric resul ts) [facility] ([facility]) will discuss at follow-up [place] # 0.7 10 0.0-0.8 Normal (applies to non-numeric resul ts) [facility] ([facility]) will discuss at follow-up Baso # 0.1 10 0.0-0.2 Normal (applies to non-numeric resul ts) [facility] ([facility]) will discuss at follow-up ID Date Data Source [id number] 05/21/2019 06:33:00 AM EDT [facility] ([facility]) Name Value Range Interpretation Code Description Data Mera rce(s) Supporting Document(s) Calcium [Mass/volume] in Serum or Plasma 9.1 mg/dL 8.5-10. 1 Normal (applies to non-numeric results) [facility] ([facility]) will discuss at follow-up Calcitriol [Mass/volume] in Serum or Plasma 62.5 pg/mL 19.9 -79.3 Normal (applies to non-numeric results) [facility] ([facility]) will discuss at follow-up Calcidiol [Mass/volume] in Serum or Plasma 51.2 ng/mL 30.0- 100.0 Normal (applies to non-numeric results) [facility] ([facility]) will discuss at follow-up Angiotensin converting enzyme [Enzymatic activity/volu me] in Serum or Plasma 39 U/L 14-82 Normal (applies to non-numeric results) [facility] ([facility]) will discuss at follow-up ID Date Data Source [id number] 05/12/2019 11:45:00 AM EST [facility] ([facility]) Name Value Range Interpretation Code Description Data Mera rce(s) Supporting Document(s) Surgical pathology study (SEE NOTE) [facility] ([facility]) FINAL DIAGNOSIS Gallbladder, cholecystectomy: Cholelithithiasis/choledocholithiasis. Acute and chronic cholecystitis. 05/14/2019 - 1325 CLINICAL DIAGNOSIS Recent choledocholithiasis 05/13/2019 - 0648 GROSS DIAGNOSIS Received in formalin labeled "gallbladder" is a gallbladder 9 x 3 x 2 cm. On opening two gallstones are identified with one in cystic duct measuring 1 to 1.2 cm. The mucosal is grossly unremarkable. The wall is 5-6mm in thickness. [employer] ons are submitted in one. -OA 05/14/2019 - 1324 Signed KENTON WHALEN MD 05/14/2019 1325 ID Date Data Source [id number] 02/18/2019 10:03:00 AM EST [facility] ([facility]) Name Value Range Interpretation Code Description Data Mera rce(s) Supporting Document(s) Microscopic observation [Identifier] in Unspecified specimen by Non- gynecological cytology method (SEE NOTE) [facility] ([facility]) SPECIMEN: FNA Right hilar/sub carinal lymph node Cytolyt and prepared slides receeved SPECIMEN ADEQUACY: Satisfactory for evaluation CATEGORIZATION: Negative for Malignancy DESCRIPTIONS: Few collections of histyocytes, suggestive of a granulomatous process. COMMENTS: See cell block report [id number] 02/19/2019 - 1309 Signed COLEEN BRAVO(ASCP) 02/19/2019 0858 (Prelim) Signed Leah Breaux MD 02/19/2019 1310 ID Date Data Source [id number] 02/18/2019 09:51:00 AM EST [facility] ([facility]) Name Value Range Interpretation Code Description Data Mera rce(s) Supporting Document(s) Surgical pathology study (SEE NOTE) [facility] ([facility]) FINAL DIAGNOSIS Cell block of FNA from subcarinal and right hilar lymph node: Rare, small, non-necrotizing granulomas are noted. Correlation with clinical finding is recommended, as sarcoidosis is in the differential. GMS stain does not show any fungal organisms. 02/19/2019 - 1325 CLINICAL DIAGNOSIS Mediastinal lymphadenopathy and hilar adenopathy 02/18/2019 - 1414 GROSS DIAGNOSIS Received cell block from FNA of subcarinal and right hilar lymph node, submitted all in one. - 02/18/2019 - 1414 Signed Leah Breaux MD 02/19/2019 1420 Procedure Social History Code Duration Value Status Description Data Source(s ) Smoking 03/10/2020 12:00:00 AM EST Never Smoker completed Never S moker eCW1 ([facility]) Alcohol intake 01/11/2020 12:00:00 AM EST Lifetime non-drinker (finding) completed Lifetime non-drinker (finding) [facility] Tobacco use and exposure 01/11/2020 12:00:00 AM EST Never used co mpleted Never used [facility] Smoking 01/11/2020 12:00:00 AM EST Never smoker completed Never s [facility] Smoking 12/10/2019 12:00:00 AM EDT Patient has never smoked co mpleted Patient has never smoked [facility] ([facility]) Smoking 08/18/2019 12:00:00 AM EDT Never Smoker completed Never S moker eCW1 ([facility]) Smoking 08/18/2019 12:00:00 AM EDT Never Smoker completed Never S moker eCW1 ([facility]) Smoking 08/18/2019 12:00:00 AM EDT Never Smoker completed Never S moker eCW1 ([facility]) Smoking 08/18/2019 12:00:00 AM EDT Never Smoker completed Never S moker eCW1 ([facility]) Smoking 08/18/2019 12:00:00 AM EDT Never Smoker completed Never S moker eCW1 ([facility]) Smoking 08/18/2019 12:00:00 AM EDT Never Smoker completed Never S moker eCW1 ([facility]) Smoking 08/13/2019 12:00:00 AM EDT Never Smoker completed Never S moker eCW1 ([facility]) Smoking 08/13/2019 12:00:00 AM EDT Never Smoker completed Never S moker eCW1 ([facility]) Smoking 08/13/2019 12:00:00 AM EDT Never Smoker completed Never S lindaker eCW1 ([facility]) Vital Signs ID Date Data Source UNK Name Value Range Interpretation Code Description Data Source(s) Diastolic blood pressure 74 mm[Hg] 74 mm[Hg] eCW1 ([facility]) Systolic blood pressure 112 mm[Hg] 112 mm[Hg] e CW1 ([facility]) Body temperature 97.4 [degF] 97.4 [degF] eCW1 ( [facility]) Respiratory rate 17 /min 17 /min eCW1 ([facility]) Heart rate 84 /min 84 /min eCW1 [facility] Body mass index (BMI) [Ratio] 31.32 kg/m2 31.32 kg/m2 W1 ([facility]) Body height 67 [in_i] 67 [in_i] eCW1 ([facility]) Body weight 200 [lb_av] 200 [lb_av] eCW1 ([facility]) Body weight 81.194 kg 81.194 kg [facility] ([facility]) [place] body weight 130 [lb_av] 130 [lb_av] MEDEN T ([facility]) Body mass index (BMI) [Ratio] 28.9 kg/m2 28.9 k g/m2 [facility] ([facility]) Body weight 179.00 [lb_av] 179.00 [lb_av] MEDEN T ([facility]) Body height 66 [in_i] 66 [in_i] [facility] ([facility]) 5'6" Body temperature 96.5 [degF] 96.5 [degF] [facility] ([facility]) Oxygen saturation in Arterial blood by Pulse oximetry 95 % 95 % [facility] ([facility]) Heart rate 75 /min 75 /min [facility] ([facility]) Diastolic blood pressure 82 mm[Hg] 82 mm[Hg] MED[facility] ([facility], ) Systolic blood pressure 104 mm[Hg] 104 mm[Hg] M [facility], ) Respiratory rate 16 /min 16 /min MEDENT ( [facility] ) Heart rate 68 /min 68 /min [facility] ([facility], ) Diastolic blood pressure 70 mm[Hg] 70 mm[Hg] [facility] ([facility], ) Systolic blood pressure 110 mm[Hg] 110 mm[Hg] [facility], [facility] Body mass index (BMI) [Ratio] 29.9 kg/m2 29.9 k g/m2 [facility] ([facility] Heart rate 84 /min 84 /min [facility] ([facility] Diastolic blood pressure 82 mm[Hg] 82 mm[Hg] [facility] ([facility] Systolic blood pressure 118 mm[Hg] 118 mm[Hg] [facility] Body weight 191.00 [lb_av] 191.00 [lb_av] MED[facility] T ([facility] Body height 67 [in_i] 67 [in_i] [facility] ([facility] 5'7" Diastolic blood pressure 66 mm[Hg] 66 mm[Hg] eCW1 ([facility]) Systolic blood pressure 108 mm[Hg] 108 mm[Hg] e CW1 ([facility]) Body mass index (BMI) [Ratio] 29.60 kg/m2 29.60 kg/m2 eCW1 ([facility]) Body height 67 [in_i] 67 [in_i] W1 ([facility]) Body weight 189 [lb_av] 189 [lb_av] W1 ([facility]) Body weight 80.854 kg 80.854 kg [facility] ([facility], ) [place] body weight 130 [lb_av] 130 [lb_av] MEDEN T ([facility]) Body mass index (BMI) [Ratio] 28.8 kg/m2 28.8 k g/m2 [facility] ([facility]) Body weight 178.25 [lb_av] 178.25 [lb_av] [facility] Body height 66 [in_i] 66 [in_i] [facility] ([facility]) 5'6" Oxygen saturation in Arterial blood by Pulse oximetry 98 % 98 % [facility] ([facility]) Heart rate 96 /min 96 /min [facility] ([facility]) Diastolic blood pressure 76 mm[Hg] 76 mm[Hg] [facility] ([facility]) Systolic blood pressure 108 mm[Hg] 108 mm[Hg] [facility] ([facility]) Body weight 80.797 kg 80.797 kg [facility] ([facility]) Body mass index (BMI) [Ratio] 28.7 kg/m2 28.7 k g/m2 [facility] ([facility]) Body weight 178.12 [lb_av] 178.12 [lb_av] [facility] ([facility]) Body height 66 [in_i] 66 [in_i] [facility] ([facility]) 5'6" Diastolic blood pressure 64 mm[Hg] 64 mm[Hg] [facility] ([facility]) Systolic blood pressure 112 mm[Hg] 112 mm[Hg] [facility] ([facility]) Body mass index (BMI) [Ratio] 28 kg/m2 28 kg/ m2 [facility] ([facility]) Body height 67 [in_us] 67 [in_us] [facility] ([facility]) Body weight Measured [lb_av] [facility] ([facility]) Systolic blood pressure 122 mm[Hg] 122 mm[Hg] [facility] ([facility]) Body weight 80.911 kg 80.911 kg [facility] ([facility]) Body mass index (BMI) [Ratio] 28.8 kg/m2 28.8 k g/m2 [facility] ([facility], ) Body weight 178.38 [lb_av] 178.38 [lb_av] MED[facility] T ([facility], ) Body height 66 [in_i] 66 [in_i] [facility] ([facility], ) 5'6" Diastolic blood pressure 74 mm[Hg] 74 mm[Hg] [facility] ([facility], ) Body weight 79.380 kg 79.380 kg [facility] ([facility]) Body mass index (BMI) [Ratio] 28.2 kg/m2 28.2 k g/m2 [facility] ([facility]) Heart rate 78 /min 78 /min [facility] ([facility]) Diastolic blood pressure 79 mm[Hg] 79 mm[Hg] [facility] ([facility]) Systolic blood pressure 114 mm[Hg] 114 mm[Hg] M EDENT ([facility]) Body weight 175.00 [lb_av] 175.00 [lb_av] MED[facility] T ([facility]) Body height 66 [in_i] 66 [in_i] [facility] ([facility]) 5'6" Respiratory rate 16 /min 16 /min [facility] ( [facility] ) Heart rate 88 /min 88 /min [facility] ([facility] ) Diastolic blood pressure 70 mm[Hg] 70 mm[Hg] [facility] ([facility], ) Systolic blood pressure 110 mm[Hg] 110 mm[Hg] M EDENT ([facility], ) Diastolic blood pressure 66 mm[Hg] 66 mm[Hg] eCW1 ([facility]) Systolic blood pressure 110 mm[Hg] 110 mm[Hg] e CW1 ([facility]) Body mass index (BMI) [Ratio] 28.28 kg/m2 28.28 kg/m2 W1 ([facility]) Body height 67 [in_us] 67 [in_us] W1 ([facility]) Body weight Measured 180.6 [lb_av] 180.6 [lb_av ] [facility] ([facility]) Body weight 79.834 kg 79.834 kg [facility] ) Body mass index (BMI) [Ratio] 28.8 kg/m2 28.8 k g/m2 [facility] ([facility]) Body weight 176.00 [lb_av] 176.00 [lb_av] MED[facility] T ([facility]) Body height 65.5 [in_i] 65.5 [in_i] [facility] ([facility]) 5'5.50" Oxygen saturation in Arterial blood by Pulse oximetry 98 % 98 % [facility] ([facility]) Heart rate 94 /min 94 /min [facility] ([facility]) Diastolic blood pressure 70 mm[Hg] 70 mm[Hg] [facility] ([facility]) Systolic blood pressure 102 mm[Hg] 102 mm[Hg] [facility] ([facility]) Body weight 78.926 kg 78.926 kg [facility] ([facility]) Body mass index (BMI) [Ratio] 28.5 kg/m2 28.5 k g/m2 [facility] ([facility]) Body weight 174.00 [lb_av] 174.00 [lb_av] [facility] T ([facility]) Body height 65.5 [in_i] 65.5 [in_i] [facility] ([facility]) 5'5.50" Oxygen saturation in Arterial blood by Pulse oximetry 98 % 98 % [facility] ([facility]) Room Air Heart rate 78 /min 78 /min [facility] ([facility]) Diastolic blood pressure 70 mm[Hg] 70 mm[Hg] [facility] ([facility]) Systolic blood pressure 116 mm[Hg] 116 mm[Hg] [facility] ([facility]) Diastolic blood pressure 60 mm[Hg] 60 mm[Hg] eCW1 ([facility]) Systolic blood pressure 100 mm[Hg] 100 mm[Hg] e CW1 ([facility]) Body temperature 97 [degF] 97 [degF] eCW1 ([facility]) Respiratory rate 20 /min 20 /min eCW1 ([facility]) Heart rate 74 /min 74 /min eCW1 [facility] Body mass index (BMI) [Ratio] 27.25 kg/m2 27.25 kg/m2 eCW1 ([facility]) Body height 67 [in_us] 67 [in_us] eCW1 ([facility]) Body weight Measured 174 [lb_av] 174 [lb_av] eC W1 ([facility]) ID Date Data Source [id number] 03/03/2020 10:35:00 AM EST [facility] spital Name Value Range Interpretation Code Description Data Source(s) Weight Measurement Method 8 8 [facility] Weight 3360 3360 [facility] pital Temperature Source 3 3 [facility] Temperature 96.0 96.0 [facility] spital Respiratory Effort 1 1 [facility] Respiratory Rate 18 18 [facility] Pulse Assessment Method 4 4 G [facility] Pulse Rate 84 84 [facility] pital Height 66 66 [facility] Blood Pressure 95/80 95/80 [facility] Weight Measurement Method 8 8 [facility] Weight 3360 3360 [facility] pital Temperature Source 3 3 [facility] Temperature 96.0 96.0 [facility] spital Respiratory Effort 1 1 [facility] Respiratory Rate 18 18 [facility] Pulse Assessment Method 4 4 G [facility] Pulse Rate 84 84 [facility] pital Height 66 66 [facility] Blood Pressure 95/80 95/80 [facility] ID Date Data Source [id number] 01/20/2020 03:57:01 PM [facility] Name Value Range Interpretation Code Description Data Source(s) WEIGHT RECORDED 204.9 lb 204.9 lb [facility] Body height Measured 67.2 in 67.2 in [facility] Patient Treatment Plan of Care Planned Activity Planned Date Details Description Data Source (s) Sodium Chloride 0.111 MEQ/ML Nasal [place] 03/10/2020 12:00:00 AM EST eCW1 ([facility]) Fluticasone Propionate 50 MCG/ACT 02/22/2020 12:00:00 AM EST eCW1 ([facility]) Fluticasone Propionate 50 MCG/ACT 02/22/2020 12:00:00 AM EST eCW1 ([facility]) Acetaminophen 325 MG Oral Tablet 01/11/2020 07:53:09 AM [facility] Bisacodyl 10 MG Rectal Suppository 01/11/2020 07:53:09 AM [facility] alginic acid 200 MG / Calcium Carbonate 80 MG / magnesium trisilicate 20 MG / Sodium Bicarbonate 70 MG Oral Tablet 01/11/2020 07:53:09 AM [facility] Diphenhydramine Hydrochloride 25 MG Oral Capsule 01/11/2020 07:53:0 9 AM [facility] Ibuprofen 200 MG Oral Tablet 01/11/2020 07:53:09 AM [facility] Magnesium Hydroxide 80 MG/ML Oral Suspension 01/11/2020 07:53:09 AM [facility] Ondansetron 4 MG Oral Tablet 01/11/2020 07:53:09 AM [facility] drospirenone 3 MG / Ethinyl Estradiol 0.02 MG Oral Tab let 01/04/2020 12:00:00 AM [facility] ospital lamotrigine 200 MG Oral Tablet 12/27/2019 12:00:00 AM [facility] 24 HR venlafaxine 37.5 MG Extended Release Oral Capsul e 12/27/2019 12:00:00 AM [facility] ospital Hydroxyzine Hydrochloride 25 MG Oral Tablet 12/27/2019 12:00:00 AM [facility] aripiprazole 20 MG Oral Tablet 12/27/2019 12:00:00 AM [facility] buspirone hydrochloride 10 MG Oral Tablet 12/23/2019 12:00:00 AM [facility] 24 HR venlafaxine 75 MG Extended Release Oral Capsule 12/20/2019 12:00:00 AM [facility] H ospital Orthotics 08/26/2019 12:00:00 AM EDT e CW1 ([facility]) Orthotics 08/26/2019 12:00:00 AM EDT e CW1 ([facility]) Orthotics 08/26/2019 12:00:00 AM EDT e CW1 ([facility]) Orthotics 08/26/2019 12:00:00 AM EDT e CW1 ([facility]) cetirizine hydrochloride 10 MG Oral Tablet [Zyrtec] 06/26/19 12:00:00 AM EDT eCW1 ([facility]) cetirizine hydrochloride 10 MG Oral Tablet [Zyrtec] 06/26/19 12:00:00 AM EDT eCW1 ([facility]) cetirizine hydrochloride 10 MG Oral Tablet [Zyrtec] 06/26/19 12:00:00 AM EDT eCW1 ([facility]) cetirizine hydrochloride 10 MG Oral Tablet [Zyrtec] 06/26/19 12:00:00 AM EDT eCW1 ([facility]) cetirizine hydrochloride 10 MG Oral Tablet [Zyrtec] 06/26/19 12:00:00 AM EDT eCW1 ([facility]) cetirizine hydrochloride 10 MG Oral Tablet [Zyrtec] 06/26/19 12:00:00 AM EDT eCW1 ([facility]) cetirizine hydrochloride 10 MG Oral Tablet [Zyrtec] 06/26/19 12:00:00 AM EDT eCW1 ([facility]) cetirizine hydrochloride 10 MG Oral Tablet [Zyrtec] 06/26/19 12:00:00 AM EDT eCW1 ([facility]) cetirizine hydrochloride 10 MG Oral Tablet [Zyrtec] 06/26/19 12:00:00 AM EDT eCW1 ([facility]) cetirizine hydrochloride 10 MG Oral Tablet [Zyrtec] 06/26/19 12:00:00 AM EDT eCW1 ([facility]) 12 HR cetirizine hydrochloride 5 MG / Ps eudoephedrine Hydrochloride 120 MG Extended Release Oral Tablet [Zyrtec-D] 06/18/2019 12:00:00 AM EDT eCW1 ([facility])
--- OUTSIDE RECORDS SUMMARY | 2020-03-23 14:38 | CCD ---
Author Author [facility] Organization [facility] Address Unknown Phone Unavailable Care Team Providers Care Child Support Specialist Name Role Phone Harry Mathews MD Unavailable [...] Unavailable Harry Mathews MD Unavailable Unavailable Harry Mathesw MD Unavailable Unavailable Harry Mathews MD Unavailable [...] Unavailable Unavailable Harry Mathews MD Unavailable Unavailable Albion, Nadine PA Unavailable Unavailable Segrio, Nadine PA Unavailable Unavailable Sergio, Nadine PA Unavailable Unavailable Albion, Nadine PA Unavailable Unavailable Trickey, J Meli [...] Unavailable Unavailable Sergio, Nadine PA Unavailable Unavailable Holland Patent, F Steve PA Unavailable Unavailable Sonia, F Steve PA Unavailable Unavailable Sonia, F Steve PA Unavailable Unavailable Sonia, F Steve PA Unavailable Unavailable Holland Patent, F Steve PA Unavailable Unavailable Holland Patent, F Steve PA Unavailable Unavailable Sonia, F Steve PA Unavailable Unavailable Sonia, F Steve PA Unavailable Unavailable Sonia, F Steve PA Unavailable Unavailable Holland Patent, F Steve PA Unavailable Unavailable Michelle Pretty [...] Mor Unavailable Unavailable Hadian, Mor Unavailable Unavailable Albion, Nadine PA Unavailable Unavailable Albion, Nadine PA Unavailable Unavailable Sergio, Nadine PA [...] is protected by Article 27-F of the [facility] Public Health law. If you continue you may have access to information: Regarding HIV / AIDS; Provided by facilities licensed or operated by the [facility] Office of Mental Health; or Provided by the [facility] Office for People With Developmental Disabilities. If such information is present, then the following [facility] mandated warning applies: This information has been [...] law may result in a fine or mcfp sentence or both. A general authorization for the release of medical or other information is NOT sufficient authorization for further disc losure. Allergies and Adverse Reactions Type Description Substance Reaction Status Data Source(s ) Drug allergy Drug allergy No Known Allergies [facility] Drug Class NO KNOWN ALLERGIES NO KNOWN ALLERGIES [facility] Seasonal Seasonal Seasonal congestion/watery eyes Active e CW1 ([facility]) Seasonal Seasonal Seasonal congestion/watery eyes Active e CW1 ([facility]) Seasonal Seasonal Seasonal congestion/watery eyes Active e CW1 ([facility]) Seasonal Seasonal Seasonal congestion/watery eyes Active e CW1 ([facility]) Seasonal Seasonal Seasonal congestion/watery eyes Active e CW1 ([facility]) Family History Family Member Name Family Member Gender Family Member Status Date o f Status Description Data Source(s) Unknown Male Problem MEDENT ([facility] Unknown Male Problem MEDENT ([facility]) Encounters Encounter Providers Location Date Indications Data Source(s ) Outpatient [address] [facility] [facility], [facility] [address] 03/10/2020 12:00:00 AM EST [facility] Outpatient Attender: Mor Braun ED-LABPNP 0 11:34:00 AM EST - 03/09/2020 11:35:00 AM EST REQUIRED [facility] REQUIRED [facility] Patient discharged. Outpatient Attender: Mor Villanuevafiorella ED-LABPNP 0 10:53:00 AM EST - 03/03/2020 10:54:00 AM EST RETURN TO [facility] RETURN TO [facility] Patient discharged. Emergency Attender: Steve GAO ED-ED 09:05:00 AM EST - 03/03/2020 10:00:00 AM EST ITCHING [facility] ITCHING Patient discharged. [place] [address] [facility] [facility] [address] 02/29/2020 12:00:00 AM EST eCW1 ([facility]) Unknown [address] [facility] [facility] [address] 02/22/2020 12:00:00 AM EST eCW1 ([facility]) Outpatient CPSCAORT-LABEJN 02/11/2020 03:27:00 PM EST [facility] Outpatient Attender: Mor Braun ED-LABPNP 0 11:54:00 AM EST - 02/11/2020 11:55:00 AM EST NEED TO RETURN TO [facility] NEED TO RETURN TO [facility] Patient discharged. [place] [address] [facility] [facility] [address] 02/10/2020 12:00:00 AM EST eCW1 ([facility]) Outpatient Attender: ZOË GAO 02/07 11:28:00 AM EST - 02/08/2020 11:28:00 AM EST [facility] Outpatient Attender: ZOË GAO [facility] 02/07 10:20:00 AM EST MEDENT ([facility] Office Visit Attender: Meli GAO Main office [facility] 02/01/2020 07:45:00 AM EST MEDENT ([facility]) [facility]09 10:00:00 AM EST MED[facility] ([facility] Inpatient Attender: SHEILA Dempsey itter: SHEILA WINTERReferrer: Meli GAO [id number] 01/11/2020 12:00:00 AM EST - 01/15/2020 03:10:00 PM EST Localization-related (focal) (partial) symptomatic epilepsy and epileptic syndromes with simple partial seizures, not intractable, without status epilepticus [facility] Localization-related (focal) (partial) s ymptomatic epilepsy and epileptic syndromes with simple partial seizures, not intractable, without status epilepticus Patient discharged. Outpatient Attender: Nadine COLLINSttender: Nadine GAO ED-LABPNP 01/10/2020 02:14:00 PM EST PREOP [facility] PREOP Outpatient Attender: Nadine Ramosender: Nadine GAO ED-LABPNP 01/06/2020 08:00:00 AM EDT PRE OP [facility] PRE OP Outpatient Attender: ZOË GAO 12/28 10:23:00 AM EDT - 12/29/2019 10:23:00 AM EDT [facility] Outpatient Attender: Nadine [facility] 12/29/2019 0 8:00:00 AM EDT COVID SCREENING [facility] COVID SCREENING Outpatient Attender: Meli GAO Main office - [facility] 10/30/2019 08:30:00 AM EDT MEDENT ([facility] Anand prado, KRISHAN) Outpatient Attender: ARIS PATRICIA [facility] Office 06/2019 09:30:00 AM EDT MEDENT ([facility] Outpatient Attender: ZOË GAO Family Practice 09/29 11:40:00 AM EDT [facility] Outpatient Attender: ZOË GAO 09/29 11:39:00 AM EDT - 09/30/2019 11:39:00 AM EDT [facility] [place] [address] [facility] [facility] [address] 08/19/2019 12:00:00 AM EDT eCW1 ([facility]) ( GYNANN) [facility] Yearly [employer]PERVIS[employer] DRAWING Exam [address] [place] [address] 08/18/2019 12:00:00 AM EDT eCW1 ([facility]) Unknown [address] [facility] [facility] [address] 08/13/2019 12:00:00 AM EDT eCW1 ([facility]) Unknown [address] [address] 08/10/2019 12:00:00 AM EDT eCW1 ([facility]) Unknown [address] [place] [address] 08/10/2019 12:00:00 AM EDT eCW1 ([facility]) [facility] [address] [place] [address] 08/07/2019 12:00:00 AM EDT eCW1 ([facility]) Unknown [address] [place] [address] 08/05/2019 12:00:00 AM EDT eCW1 ([facility]) Outpatient CPSCAORT-LABEJN 07/31/2019 02:32:00 PM EDT [facility] Outpatient Attender: Mor Braun ED-LABPNP 0 09:29:00 AM EDT - 07/31/2019 09:30:00 AM EDT SCREENING [facility] SCREENING Patient discharged. [facility] [address] [place] [address] 07/13/2019 12:00:00 AM EDT eCW1 ([facility]) Outpatient Attender: Meli GAO [facility] n 07/07/2019 08:00:00 AM EDT MEDENT ([facility] KRISHAN prado) [facility] [address] [place] [address] 07/07/2019 12:00:00 AM EDT eCW1 ([facility]) [facility] Res[facility] [address] [place] [address] 06/26/2019 12:00:00 AM EDT eCW1 ([facility]) [facility] Breeding [address] [facility] [facility] [address] 06/19/2019 12:00:00 AM EDT eCW1 ([facility]) [facility] Breeding [address] [facility] [facility] [address] 06/18/2019 12:00:00 AM EDT eCW1 ([facility]) Outpatient Attender: ZOË GAO 06/10 09:05:00 AM EDT - 06/11/2019 09:05:00 AM EDT [facility] Outpatient Attender: ZOË GAO Family Practice 06/10 09:00:00 AM EDT [facility] Outpatient Referrer: Meli GAO 06/09/2019 03:54:00 P M EDT [facility] [address] [place] [address] 06/09/2019 12:00:00 AM EDT eCW1 ([facility]) [facility] [address] [place] [address] 05/25/2019 12:00:00 AM EDT eCW1 ([facility]) [facility] [address] [place] [address] 05/12/2019 12:00:00 AM EST eCW1 ([facility]) [facility] Res[facility] [address] [place] [address] 05/08/2019 12:00:00 AM EST eCW1 ([facility]) Outpatient Attender: AAMIR Jarvis/Stacy/Lonnie/Natalee charlesl 04/13/2019 09:15:00 AM EST MEDENT ([facility] Outpatient Attender: Meli GAO [facility] 04/02/2019 08:15:00 AM EST MEDENT ([facility]) [facility] [address] [place] [address] 03/31/2019 12:00:00 AM EST eCW1 ([facility]) Outpatient Referrer: Meli GAO 03/20/2019 10:53:00 A M EST [facility] Outpatient Attender: ZOË GAO 03/13 09:08:00 AM EST - 03/13/2019 09:08:00 AM EST [facility] Resident [address] [place] [address] 03/05/2019 12:00:00 AM EST eCW1 ([facility]) Outpatient Attender: Michelle Jarvis/Stacy/Lonnie/Ariel ndortega 02/25/2019 01:30:00 PM EST MEDENT ([facility]) [facility] Resident [address] [place] [address] 02/13/2019 12:00:00 AM EST eCW1 ([facility]) [facility] [address] [place] [address] 02/09/2019 12:00:00 AM EST eCW1 ([facility]) Outpatient Attender: Michelle Jarvis/Stacy/Lonnie/Ariel nd 02/03/2019 01:00:00 PM EST MEDENT ([facility]) [facility] Resident [address] [place] [address] 01/30/2019 12:00:00 AM EST eCW1 ([facility] Breeding [address] [facility] [address] 01/28/2019 12:00:00 AM EST eCW1 ([facility]) [facility] Breeding [address] [facility] [facility] [address] 01/28/2019 12:00:00 AM EST eCW1 ([facility]) Outpatient Attender: Gregorio Mathews MD Main Office 01/23/2019 05:30:00 AM EST MEDENT ([facility]) Outpatient Attender: Mariele Bailey LMSW 10/2018 08:58:00 AM EST - 01/16/2019 08:58:00 AM EST [facility] Immunizations Vaccine Date Status Description Data Source(s) INFLUENZA VIRUS VACCINE QUADRIVALENT 2019- (6 MOS AN D UP) 01/06/2020 12:00:00 AM EDT completed [facility] Medications Medication Brand Name Start Date Product Form Dose Route Admi nistrative Instructions Pharmacy Instructions Status Indications Reaction Description Data Source(s) Sodium Chloride 0.111 MEQ/ML Nasal Radisson Saline Nasal Radisson 0.65 % Saline Nasal Radisson 0.65 % 03/10/2020 12:00:00 AM EST activ e Saline Nasal Radisson 0.65 % eCW1 ([facility]) Sodium Chloride 0.111 MEQ/ML Nasal Radisson Saline Nasal Radisson 0.65 % Saline Nasal Radisson 0.65 % 03/10/2020 12:00:00 AM EST activ e Saline Nasal Radisson 0.65 % eCW1 ([facility]) 20 mg 03/03/2020 12:00:00 AM EST tablet 8 TAKE TWO TABLETS BY MOUTH ONCE DAILY TAKE TWO TABLETS BY MOUTH ONCE DAILY SOLD: 03/03/2020 [facility] Fluticasone Propionate 50 MCG/ACT Fluticasone Propionate 50 MCG/ACT 02/22/2020 12:00:00 AM EST 1.0 {spray_in_each_nostril} acti ve Fluticasone Propionate 50 MCG/ACT eCW1 ([facility]) Fluticasone Propionate 50 MCG/ACT Fluticasone Propionate 50 MCG/ACT 02/22/2020 12:00:00 AM EST 1.0 {spray_in_each_nostril} acti ve Fluticasone Propionate 50 MCG/ACT eCW1 ([facility]) 24 HR Divalproex Sodium 500 MG Extended Release Oral T ablet [Depakote] Depakote ER 02/01/2020 12:00:00 AM EST ORAL active MEDENT ([facility]) Hydroxyzine Hydrochloride 50 MG Oral Tablet hydrOXYzin e (ATARAX) tablet 25 mg hydrOXYzine (ATARAX) tablet 25 mg 01/14/2020 06:15:00 PM EST 25 mg Oral completed 25 mg, Oral, Once, Sat01/14/20 a t 1815, For 1 dose [facility] Medication administered onsite lamotrigine 100 MG Oral Tablet lamoTRIgine (LaMICtal) tablet 400 mg lamoTRIgine (LaMICtal) tablet 400 mg 01/14/2020 11:30:00 AM EST 400 mg Oral active 400 mg, Oral, 2 Times Daily, First dose on Sat01/14/20 at 1130, For 30 days [facility] Medication administered onsite lamotrigine 100 MG Oral Tablet lamoTRIgine (LaMICtal) tablet 200 mg lamoTRIgine (LaMICtal) tablet 200 mg 01/13/2020 09:00:00 PM EST 200 mg Oral active 200 mg, Oral, Once, Sat01/13/20 at 2100, For 1 dose [facility] Medication administered onsite diazePAM (VALIUM) injection 5 mg [id number] 01/13/2020 12:54:25 PM EST 5 mg Intravenous aborted 5 mg, Intrave nous, Once PRN, Give for 1st GTC, Starting Sat01/13/20 at 1254, For 4 days
Give indicated order dose for 1st GTC
[facility] Medication administered onsite lamotrigine 100 MG Oral Tablet lamoTRIgine (LaMICtal) tablet 200 mg lamoTRIgine (LaMICtal) tablet 200 mg 01/12/2020 09:00:00 PM EST 200 mg Oral active 200 mg, Oral, 2 Times Daily, First dose (after last reorder) on Sat01/12/20 at 2100, For 1 dose [facility] Medication administered onsite lamotrigine 100 MG Oral Tablet lamoTRIgine (LaMICtal) tablet 200 mg lamoTRIgine (LaMICtal) tablet 200 mg 01/12/2020 01:00:00 PM EST 200 mg Oral active 200 mg, Oral, Once, Sat01/12/20 at 1300, For 1 dose [facility] Medication administered onsite lamotrigine 100 MG Oral Tablet lamoTRIgine (LaMICtal) tablet 200 mg lamoTRIgine (LaMICtal) tablet 200 mg 01/12/2020 10:00:00 AM EST 200 mg Oral active 200 mg, Oral, 2 Times Daily, First dose (after last modification) on Sat01/12/20 at 1000, For 1 dose [facility] Medication administered onsite cetirizine hydrochloride 10 MG Oral Tablet cetirizine (ZYRTEC) tablet 10 mg cetirizine (ZYRTEC) tablet 10 mg 01/12/2020 09:00:00 AM EST 10 mg Oral active 10 mg, Oral, Daily Standard, First dose on Sat01/12/20 at 0900, For 30 days [facility] Medication administered onsite drospirenone 3 MG [...] Own medication being used for this order
[facility] Medication administered onsite 24 HR venlafaxine [...] XR 37.5 mg to get 112.5 mg
[facility] Medication administered onsite 24 HR venlafaxine [...] XR 75 mg to get 112.5 mg
[facility] Medication administered onsite Cholecalciferol 1000 UNT Oral Tablet vit oconnell D3 (CHOLECALCIFEROL) tablet 2,000 Units vitamin D3 (CHOLECALCIFEROL) tablet 2,000 Units 2019 09:00:00 AM EST 2000 U Oral active 2,000 Un its, Oral, Daily Standard, First dose on Sat01/12/20 at 0900, For 20 days
25 mcg vitamin D3 = 1,000 international units vitamin D3.
[facility] Medication administered onsite aripiprazole 10 MG Oral Tablet ARIPiprazole (ABILIFY) tablet 10 mg ARIPiprazole (ABILIFY) tablet 10 mg 01/11/2020 09:00:00 PM EST 10 mg Oral active 10 mg, Oral, 2 Times Daily, First dose on Sat01/11/20 at 2100, For 30 days [facility] Medication administered onsite buspirone hydrochloride 10 MG Oral Tablet busPIRone (B USPAR) tablet 10 mg busPIRone (BUSPAR) tablet 10 mg 01/11/2020 09:00:00 PM EST 10 mg O ral active 10 mg, Oral, 2 Times Daily, First dose on Sat01/11/20 at 2100, For 30 days [facility] Medication administered onsite lamotrigine 100 MG Oral Tablet lamoTRIgine (LaMICtal) tablet 400 mg lamoTRIgine (LaMICtal) tablet 400 mg 01/11/2020 09:00:00 PM EST 400 mg Oral active 400 mg, Oral, 2 Times Daily, First dose on Sat01/11/20 at 2100, For 1 dose [facility] Medication administered onsite Hydroxyzine Hydrochloride 50 MG Oral Tablet hydrOXYzin e (ATARAX) tablet 25 mg hydrOXYzine (ATARAX) tablet 25 mg 01/11/2020 04:00:00 PM EST 25 mg Oral active 25 mg, Oral, Three Times Daily Standard, First dose (after last modification) on Sat01/11/20 at 1600, For 30 days [facility] Medication administered onsite hypromellose 0.003 MG/MG Ophthalmic Gel hypromellose (GENTEAL) 0.3 % ophthalmic gel 1 drop hypromellose (GENTEAL) 0.3 % ophthalmic gel 1 drop 04/2019 10:45:00 AM EST 1 [drp] Both Eyes active 1 drop, Both Eyes, 2 Times Daily, First dose (after last modification) on Sat01/11/20 at 1045, For 30 days [facility] Medication administered onsite sodium chloride (preservative [...] 0753, For 30 days [Order 6 End] [facility] Medication administered onsite senna tablet 2 [...] on the third day.
[Order 2 End] [facility] Medication administered onsite Ondansetron 4 MG Oral Tablet ondansetron (ZOFRAN) tabl et 4 mg ondansetron (ZOFRAN) tablet 4 mg 01/11/2020 07:53:09 AM EST 4 mg Oral active 4 mg, Oral, Every 8 hours PRN, Nausea, Starting Sat01/11/20 at 0753, For 30 days [facility] Medication administered onsite Magnesium Hydroxide 80 MG/ML Oral Suspen mary magnesium hydroxide (MILK OF MAGNESIA) 400 MG/5ML suspension 45 mL magnesium hydroxide (MILK OF MAGNESIA) 4 00 MG/5ML suspension 45 mL 01/11/2020 07:53:09 AM EST 45 mL Oral active 45 mL, Oral, Nightly PRN, Constipation, Starting Sat01/11/20 at 0753, For 30 days
If serum creatinine > 2 notify provider before administering.
[facility] Medication administered onsite Acetaminophen 325 MG [...] mg from all sources in 24 hours.
[facility] Medication administered onsite Bisacodyl 10 MG Rectal Suppository bisacodyl (DULCOLAX ) suppository 10 mg bisacodyl (DULCOLAX) suppository 10 mg 01/11/2020 07:53:09 AM EST 10 mg Rectal active 10 mg, Rectal, Every 72 hours PRN, Constipation, Starting Sat01/11/20 at 0753, For 30 days
Hold if patient has had a BM in the past 2 days.
[facility] Medication administered onsite alginic acid 200 MG / Calcium Carbonate 80 MG / magnesium trisilicate 20 MG / Sodium Bicarbonate 70 MG Oral Tablet calcium carbonate (TUMS) chewable tablet 500 mg calcium carbonate (TUMS) chewable tablet 500 mg 2019 07:53:09 AM EST 500 mg Oral active 500 mg, Oral, Daily PRN, Indigestion, Heartburn, Starting Sat01/11/20 at 0753, For 30 days [facility] Medication administered onsite Diphenhydramine Hydrochloride 25 MG Oral Capsule diphenhydrAMINE (BENADRYL) capsule 25 mg diphenhydrAMINE (BENADRYL) capsule 25 mg 01/11/2020 07 :53:09 AM EST 25 mg Oral active 25 mg, O ral, Every 6 hours PRN, Itching, Starting Sat01/11/20 at 0753, For 30 days [facility] Medication administered onsite Ibuprofen 200 MG Oral Tablet ibuprofen (MOTRIN) tablet 200 mg ibuprofen (MOTRIN) tablet 200 mg 01/11/2020 07:53:09 AM EST 200 mg Oral acti ve 200 mg, Oral, Every 6 hours PRN, Mild Pain (Pain Scale Score 1-3), Fever, Starting Sat01/11/20 at 0753, For 30 days
Take with food.
[facility] Medication administered onsite drospirenone 3 MG / Ethinyl Estradiol 0. 02 MG Oral Tablet Drospirenone-Ethinyl Estradiol 3-0.02 MG Oral Tablet (GIANVI) Drospirenone-Ethinyl Estradiol 3-0.02 MG Oral Tablet (GIANVI) 01/04/2020 12:00:00 AM EDT 1 {tbl} Oral active Take 1 tablet by mouth daily [facility] MG Oral Tablet ARIPiprazole 20 MG Oral Tablet (ABILIFY) ARIPiprazole 20 MG Oral Tablet (ABILIFY) 12/27/2019 12:00:00 AM EDT 10 mg Oral active Take 10 mg by mouth Two Times Daily [facility] Hydroxyzine Hydrochloride 25 MG Oral Tab let hydrOXYzine HCl 25 MG Oral Tablet (ATARAX) hydrOXYzine HCl 25 MG Oral Tablet (ATARAX) 12/27/2019 12:00: 00 AM EDT 25 mg Oral active Take 25 mg by mo uth Three times daily [facility] lamotrigine 200 MG Oral Tablet lamoTRIgine 200 MG Oral Tablet (LaMICtal) lamoTRIgine 200 MG Oral Tablet (LaMICtal) 12/27/2019 12:00:00 AM EDT 400 mg Oral active Take 400 mg by mouth Two Times Daily [facility] 24 HR venlafaxine 37.5 MG Extended Relea se Oral Capsule Venlafaxine HCl ER 37.5 MG Oral Capsule Extended Release 24 Hour (EFFEXOR-XR) Venlafaxine HCl ER 37.5 MG Oral Capsule Extended Release 24 Hour (EFFEXOR-XR) 12/27/2019 12:00:00 AM EDT 37.5 mg Oral active Take 37.5 mg by mouth daily Take with 75 mg capsule. MUK=523.5 mg. [facility] buspirone hydrochloride 10 MG Oral Tablet Buspirone HCL 12/23/2019 12:00:00 AM EDT ORAL active MEDENT ([facility]) buspirone hydrochloride 10 MG Oral Table t busPIRone HCl 10 MG Oral Tablet (BUSPAR) busPIRone HCl 10 MG Oral Tablet (BUSPAR) 12/23/2019 12:00:00 AM EDT 10 mg Oral active Take 10 mg by mouth Two Times Daily [facility] 24 HR venlafaxine 75 MG Extended Release Oral Capsule Venlafaxine HCl ER 75 MG Oral Capsule Extended Release 24 Hour (EFFEXOR-XR) Venlafaxine HCl ER 75 MG Oral Capsule Extended Release 24 Hour (EFFEXOR-XR) 12/20/2019 12:00:00 AM EDT 75 mg Oral active Take 75 mg by mouth daily Take with 37.5 mg capsule. SPQ=172.5 mg. [facility] aripiprazole 20 MG Oral Tablet Aripiprazole 10/26/2019 12:00:00 AM EDT ORAL active MEDENT ([facility]) Orthotics UNK 08/26/2019 12:00:00 AM EDT active Orthotics eCW1 ([facility]) Orthotics UNK 08/26/2019 12:00:00 AM EDT active Orthotics eCW1 ([facility]) Orthotics UNK 08/26/2019 12:00:00 AM EDT active Orthotics eCW1 ([facility]) Orthotics UNK 08/26/2019 12:00:00 AM EDT active Orthotics eCW1 ([facility]) Orthotics UNK 08/26/2019 12:00:00 AM EDT active Orthotics eCW1 ([facility]) lamotrigine 200 MG Oral Tablet Lamotrigine 08/17/2019 12:00:00 AM EDT ORAL active MEDENT ([facility]) 24 HR venlafaxine 75 MG Extended Release Oral Capsule Venlaf axine HCL ER 07/17/2019 12:00:00 AM EDT active MEDENT ([facility]) 10 mg 06/27/2019 12:00:00 AM EDT [...] 12:00:00 AM EDT active 1 tablet eCW1 ([facility]) cetirizine hydrochloride 10 MG Oral Tablet [Zyrtec] Zy rtec Allergy 10 MG Zyrtec Allergy 10 MG 06/26/2019 12:00:00 AM EDT 1.0 {tablet} active Zyrtec Allergy 10 MG eCW1 ([facility]) cetirizine hydrochloride 10 MG Oral Tablet [Zyrtec] Zy rtec Allergy 10 MG Zyrtec Allergy 10 MG 06/26/2019 12:00:00 AM EDT 1.0 {tablet} active Zyrtec Allergy 10 MG eCW1 ([facility]) cetirizine hydrochloride 10 MG Oral Tablet [Zyrtec] Zy rtec Allergy 10 MG Zyrtec Allergy 10 MG 06/26/2019 12:00:00 AM EDT 1.0 {tablet} active Zyrtec Allergy 10 MG eCW1 ([facility]) cetirizine hydrochloride 10 MG Oral Tablet [Zyrtec] Zy rtec Allergy 10 MG Zyrtec Allergy 10 MG 06/26/2019 12:00:00 AM EDT 1.0 {tablet} active Zyrtec Allergy 10 MG eCW1 ([facility]) cetirizine hydrochloride 10 MG Oral Tablet [Zyrtec] Zy rtec Allergy 10 MG Zyrtec Allergy 10 MG 06/26/2019 12:00:00 AM EDT 1.0 {tablet} active Zyrtec Allergy 10 MG eCW1 ([facility]) cetirizine hydrochloride 10 MG Oral Tablet [Zyrtec] Zy rtec Allergy 10 MG Zyrtec Allergy 10 MG 06/26/2019 12:00:00 AM EDT 1.0 {tablet} active Zyrtec Allergy 10 MG eCW1 ([facility]) cetirizine hydrochloride 10 MG Oral Tablet [Zyrtec] Zy rtec Allergy 10 MG Zyrtec Allergy 10 MG 06/26/2019 12:00:00 AM EDT 1.0 {tablet} active Zyrtec Allergy 10 MG eCW1 ([facility]) cetirizine hydrochloride 10 MG Oral Tablet [Zyrtec] Zy rtec Allergy 10 MG Zyrtec Allergy 10 MG 06/26/2019 12:00:00 AM EDT 1.0 {tablet} active Zyrtec Allergy 10 MG eCW1 ([facility]) cetirizine hydrochloride 10 MG Oral Tablet [Zyrtec] Zy rtec Allergy 10 MG Zyrtec Allergy 10 MG 06/26/2019 12:00:00 AM EDT 1.0 {tablet} active Zyrtec Allergy 10 MG eCW1 ([facility]) 12 HR cetirizine hydrochloride 5 MG / Ps eudoephedrine Hydrochloride 120 MG Extended Release Oral Tablet [Zyrtec-D] Zyrtec-D Allergy & Congestion 5-120 MG Zyrtec-D Allergy & Congestion 5-120 MG 06/18/2019 12:00:00 AM EDT active 1 tablet as needed eCW1 ([facility]) Insurance Providers Payer name Policy type / Coverage type Policy ID Covered alliance party ID Covered alliance party's relationship to delgado Policy Delgado Plan Information EMEDNY [id number] SP [id number] MEDICARE [id number] SP [id number] MEDICAID [id number] S [id number] MEDICARE [id number] S [id number] X71 BH MEDICAID [id number] 18 [id number] MEDICARE CO [id number] 18 [id number] MEDICAID M [id number] Self [id number] MEDICARE A [id number] Self [id number] X71 MEDICAID [id number] SP [id number] MEDICARE C [id number] S [id number] X71 MEDICAID M [id number] S [id number] MEDICAID [id number] SP [id number] MEDICARE [id number] SP [id number] X71 MEDICAID BH [id number] 18 [id number] Medicaid Medigap Part B [id number] Self [id number] 12M Medicare Part B Medicare Primary [id number] Self [id number] Medicaid Medicaid [id number] Self [id number] Medicare Medicare Primary [id number] Self 9 [id number] ANSI-Medicaid [id number] ANSI-Medicare Part B [id number] ANSI-Commercial [id number] ANSI-Medicaid [id number] ANSI-Commercial [id number] ANSI-Medicare Part B [id number] Medicaid [facility] Part B [id number] Self [id number] 12M Medicare Part B Medicare Primary [id number] Self [id number] Medicaid Medicaid [id number] Self [id number] Medicare Medicare Primary [id number] Self [id number] ANSI-Medicaid [id number] ANSI-Medicare Part B [id number] ANSI-Commercial [id number] ANSI-Medicare Part B [id number] ANSI-Commercial [id number] ANSI-Medicaid [id number] ANSI-Medicare Part B [id number] ANSI-Commercial [id number] ANSI-Medicaid [id number] Medicaid [facility] Part B [id number] Self [id number] 12M Medicare Part B Medicare Primary [id number] Self [id number] *NOTFORTODAYSVISIT* SP *NOTFORTODAYSVISIT* Medicaid Medicaid [id number] Self [id number] Medicare Medicare Primary [id number] Self [id number] ANSI-Medicaid [id number] ANSI-Medicare Part B [id number] ANSI-Commercial [id number] ANSI-Commercial [id number] ANSI-Medicaid [id number] ANSI-Medicare Part B [id number] ANSI-Commercial [id number] ANSI-Medicaid [id number] ANSI-Medicare Part B [id number] ANSI-Medicaid [id number] ANSI-Medicare Part B [id number] ANSI-Commercial [id number] Medicaid Medigap Part B [id number] Self [id number] 12M Medicare Part B Medicare Primary [id number] Self [id number] [place] Medigap Part B [id number] Family Depend ent [id number] Cigna/MVP Medigap Part B [id number] Family Dependent [id number] [place] Medigap Part B [id number] Self [id number] Medicare [facility] Medicare Primary [id number] Self [id number] MEDICARE [id number] SP [id number] ANSI-Commercial [id number] ANSI-Medicare Part B [id number] ANSI-Medicaid [id number] ANSI-Commercial [id number] ANSI-Medicare Part B [id number] [facility]-Medicaid [id number] [facility]-Commercial [id number] [facility]-Medicaid [id number] ANSI-Medicare Part B [id number] [facility]-Medicaid [id number] ANSI-Medicare Part B [id number] ANSI-Commercial [id number] ANSI-Medicare Part B [id number] ANSI-Commercial [id number] ANSI-Medicaid [id number] Medicaid Medigap Part B [id number] Self [id number] 12M Medicare Part B Medicare Primary [id number] Self [id number] ANSI-Medicaid [id number] ANSI-Commercial [id number] ANSI-Medicare Part B [id number] ANSI-Commercial [id number] ANSI-Medicaid [id number] ANSI-Medicare Part B [id number] Medicaid Medigap Part B [id number] Self [id number] 12M Medicare Part B Medicare Primary [id number] Self [id number] Medicaid Medigap Part B [id number] Self [id number] 12M Medicare Part B Medicare Primary [id number] Self [id number] Medicaid Medigap Part B [id number] Self [id number] 12M Medicare Part B Medicare Primary [id number] Self [id number] Medicaid Medigap Part B [id number] Self [id number] 12M Medicare Part B Medicare Primary [id number] Self [id number] MEDICARE [id number] SP [id number] Medicaid Medigap Part B [id number] Self [id number] 12M Medicare Part B Medicare Primary [id number] Self [id number] Medicaid Medigap Part B [id number] Self [id number] 12M Medicare Part B Medicare Primary [id number] Self [id number] Medicaid Medigap Part B [id number] Self [id number] 12M Medicare Part B Medicare Primary [id number] Self [id number] Medicaid Medigap Part B [id number] Self [id number] 12M Medicare Part B Medicare Primary [id number] Self [id number] MEDICAID [id number] SP [id number] Medicare Part B Medicare Primary Self Medicaid Medicaid 1 1 Self 1 1 Medicare Medicare Primary Self [place] P[place] 302/307 [id number] FA2 [id number] MEDICARE P [id number] S [id number] MEDICAID -O/P [id number] 18 [id number] [place]OSS -O/P [id number] 19 [id number] MEDICARE -O/P [id number] 18 [id number] MEDICAID -CLINIC [id number] 18 [id number] BL[place]OSS - CLINIC [id number] 19 [id number] MEDICARE - CLINIC [id number] 18 [id number] Problems, Conditions, and Diagnoses Code Display Name Description Problem Type Effective Dates Data Source(s) D86.9 92353209 Sarcoidosis Problem 06/26/2019 12:00:00 AM E DT eCW1 ([facility]) D86.9 71757638 Sarcoidosis Problem 06/26/2019 12:00:00 AM E DT eCW1 ([facility]) F419 Anxiety disorder, unspecified Anxiety disorder, unspec ified Diagnosis 02/08/2020 11:28:00 AM [facility] F79 Unspecified intellectual disabilities Unspecifie d intellectual disabilities Diagnosis 02/08/2020 11:28:00 AM [facility] F840 Autistic disorder Autistic disorder Diagnosis 02/08/2020 11:28:00 AM [facility] 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, not intractable, without status epilepticus Localization-related (focal) (partial) s ymptomatic epilepsy and epileptic syndromes with simple partial seizures, not intractable, without status epilepticus Diagnosis 01/15/2020 07:48:28 PM [facility] Localization-related epilepsy Localization-related epi lepsy Diagnosis 01/11/2020 07:35:00 AM [facility] r51 r51 Diagnosis 01/11/2020 07:35:00 AM [facility] r42 r42 Diagnosis 01/11/2020 07:35:00 AM [facility] g40.89 g40.89 Diagnosis 01/11/2020 07:35:00 AM [facility] g40.009 g40.009 Diagnosis 01/11/2020 07:35:00 AM [facility] Z20.828 Contact with and (suspected) exposure to other viral communicable diseases CONTACT W AND EXPOSURE TO OTH VIRAL COMMUNICABLE DISEASES Di agnosis 01/06/2020 08:00:[address] [facility] Surgeries/Procedures Procedure Description Date Indications Data Source(s) EEG VIDEO MONITORING EEG VIDEO MONITORING Routine 01/15/2020 3:10 PM EST 01/15/2020 03:10:00 PM [facility] LAMOTRIGINE LAMOTRIGINE Routine 01/13/2020 5:41 AM EST 01/13/2020 05:41:00 AM [facility] LAMOTRIGINE LAMOTRIGINE Routine 01/11/2020 12:47 PM EST 01/11/2020 12:47:00 PM [facility] QUANTITATION DRUG NOT ELSEWHERE SPECIFIED LAMOTRIGINE Routi ne 01/11/2020 11:48 AM EST 01/11/2020 11:48:00 AM [facility] GONADOTROPIN CHORIONIC QUANTITATIVE BETA HCG, QUANT Routine 01/11/2020 11:43 AM EST 01/11/2020 11:43:00 AM [facility] PHYSICIAN TELEPHONE EVALUATION 11-20 MIN 06/26/2019 12 :00:00 AM EDT eCW1 ([facility]) PHYSICIAN TELEPHONE EVALUATION 5-10 MIN 06/09/2019 12: 00:00 AM EDT eCW1 ([facility]) With Endobronchial Ultrasound Guided 02/18/2019 12:00: 00 AM EST [facility] ([facility]) Office Visit, Est Pt., Level 2 FC 01/30/2019 12:00:00 AM EST eCW1 ([facility]) Office Visit, Est Pt., Level 4 PC 01/30/2019 12:00:00 AM EST eCW1 ([facility]) Transitional Care NO CHARGE Visit 01/28/2019 12:00:00 AM EST eCW1 ([facility]) ERCP W/SPHINCTEROTOMY/PAPILLOTOMY 01/23/2019 12:00:00 AM EST [facility] ([facility]) Results ID Date Data Source [id number] 03/14/2020 10:17:00 AM EST [facility] Name Value Range Interpretation Code Description Data Mera rce(s) Supporting Document(s) Respiratory specimen severe acute respir atory syndrome coronavirus 2 (SARS-CoV-2) RNA [facility] This lab was ordered by víctor porras and reported by . ID Date Data Source [id number] 03/14/2020 10:14:00 AM EST [facility] Name Value Range Interpretation Code Description Data Mera rce(s) Supporting Document(s) Respiratory specimen severe acute respir atory syndrome coronavirus 2 (SARS-CoV-2) RNA [facility] This lab was ordered by saimaseymour porras and reported by . ID Date Data Source [id number] 03/14/2020 10:14:00 AM EST [facility] Name Value Range Interpretation Code Description Data Mera rce(s) Supporting Document(s) Respiratory specimen severe acute respir atory syndrome coronavirus 2 (SARS-CoV-2) RNA [facility] This lab was ordered by Stephanie porras and reported by . ID Date Data Source [id number] 03/10/2020 08:32:00 AM [facility] Name Value Range Interpretation Code Description Data Mera rce(s) Supporting Document(s) SARS-CoV-2 RNA INHOUSE Negative Normal (applies to non-n umeric results) [facility] THIS IS A STATE REPORTABLE COMMUNICABLE DISEASE. [...] be found at the following links: Providers: https://www.[place].gov/media/495204/download Patients : https://www.fda.gov/media/401759/download THIS IS A [facility] REPORTABLE COMMUNICABLE DISEASE Negative results do not preclude SARS-CoV-2 infection and should not be used as the sole basis for patient management decisions. Negative results must be combined with clinical observations,patient history, and epidemiological information. ID Date Data Source [id number] 03/03/2020 06:48:00 PM [facility] Name Value Range Interpretation Code Description Data Mera rce(s) Supporting Document(s) SARS-CoV-2 RNA INHOUSE Negative Normal (applies to non-n umeric results) [facility] THIS IS A STATE REPORTABLE COMMUNICABLE DISEASE. [...] be found at the following links: Providers: https://www.fda.gov/media/134228/download Patients : https://www.fda.gov/media/671497/download THIS IS A [facility] REPORTABLE COMMUNICABLE DISEASE Negative results do not preclude SARS-CoV-2 infection and should not be used as the sole basis for patient management decisions. Negative results must be combined with clinical observations,patient history, and epidemiological information. ID Date Data Source [id number] 02/23/2020 07:15:00 AM EST [facility] Name Value Range Interpretation Code Description Data Mera rce(s) Supporting Document(s) SARS-CoV-2 GITA result Not Detected Normal (applies to non- numeric results) [facility] This nucleic acid amplification test was developed and its performance characteristics determined by [employer]. Nucleic acid amplification tests include PCR and [...] detected) result in this assay. Performed at: [employer] [address] [facility], [place], [place] [id number] Clerical Administrator: Nelsy Ordoñez PhD, Phone: [phone] Testing was performed using the Aptima SARS-CoV-2 assay. This nucleic acid amplification test was developed and its performance characteristics determined by [employer]. Nucleic acid amplification tests include PCR and [...] detected) result in this assay. Performed at: [address] [id number] Clerical Administrator: Ana Taylor MD, Phone: [phone] ID Date Data Source [id number] 02/11/2020 11:29:00 AM EST [facility] Name Value Range Interpretation Code Description Data Mera rce(s) Supporting Document(s) SARS coronavirus 2 RNA [facility] This lab was ordered by Cathi woods and reported by [employer]. ID Date Data Source [id number] 02/14/2020 02:39:00 PM [facility] Name Value Range Interpretation Code Description Data Mera rce(s) Supporting Document(s) COVID-19 Result Not Detected Normal (applies to non-numeri c results) [facility] This nucleic acid amplification test was developed and its performance characteristics determined by [employer]. Nucleic acid amplification tests include PCR and [...] detected) result in this assay. Performed at: [employer] [facility] [place], [place] [id number] Clerical Administrator: Nelsy Ordoñez PhD, Phone: [phone] Testing was performed using the Aptima SARS-CoV-2 assay. This nucleic acid amplification test was developed and its performance characteristics determined by [employer]. Nucleic acid amplification tests include PCR and [...] detected) result in this assay. Performed at: [address] [id number] Clerical Administrator: Ana Taylor MD, Phone: [phone] ID Date Data Source [id number] 01/16/2020 12:26:11 PM [facility] Name Value Range Interpretation Code Description Data Mera rce(s) Supporting Document(s) Discharge Summary [facility] WPGGUt3nQoVCSsFn81/ESDltVLVhc0EaCIccTMj7DDwgEAHsQ6YbAVD7rE6cKTM1HFiVWaOwCkPeVGZ4 [facility] [file] FoFZY7VmR9AOZpPeDqOUnhM6I3TI3zITGBLt6+DJmpnGHtjRiyEOIEGgPuHbP5YVfbVPAPBg4G ID Date Data Source [id number] 01/15/2020 03:36:41 PM [facility] Name Value Range Interpretation Code Description Data Mera e(s) Supporting Document(s) History and Physical [facility] PDPWAq5cPjHPQbVh74/HCOolHFGxu9BkKHywMPt0QWgoXVMbY9VaYQF9cR8xAOP9YIaMXtVgHnReTUN2 lbm [file] Ev5+M/zuFJq3l0vkDyDP62tsS36HpdfjqYVbplo64hYy6nRmmRES5ez/qj+sGHoO9KY1lDBFpJcx/complex commercial litigation paralegal [file] ICAgICAgICAgICAgICAgICAgICAgICAgICAgICAgICAgICAgICAgICAgICAgICAgICAgICAgICAgICAg ICAgICAgICAgICAgICAgICAgICAgICAgICAgICAgDQogICAgICAgICAgICAgICAgICAgICAgICAgICAg ICAgICAgICAgICAgICAgICAgICAgICAgICAgICAgIC AgICAgICAgICAgICAgICAgICAgICAgICAgICAgICAgICAgICAgICAgDQogICAgICAgICAgICAgICAgIC AgICAgICAgICAgICAgICAgICAgICAgICAgICAgICAgICAgICAgICAgICAgICAgICAgICAgICAgICAgIC AgICAgICAgICAgICAgICAgICAgICAgDQogICAgICAg ICAgICAgICAgICAgICAgICAgICAgICAgICAgICAgICAgICAgICAgICAgICAgICAgICAgICAgICAgICAg ICAgICAgICAgICAgICAgICAgICAgICAgICAgICAgICAgDQogICAgICAgICAgICAgICAgICAgICAgICAg ICAgICAgICAgICAgICAgICAgICAgICAgICAgICAgIC AgICAgICAgICAgICAgICAgICAgICAgICAgICAgICAgICAgICAgICAgICAgDQogICAgICAgICAgICAgIC AgICAgICAgICAgICAgICAgICAgICAgICAgICAgICAgICAgICAgICAgICAgICAgICAgICAgICAgICAgIC AgICAgICAgICAgICAgICAgICAgICAgICAgDQogICAg ICAgICAgICAgICAgICAgICAgICAgICAgICAgICAgICAgICAgICAgICAgICAgICAgICAgICAgICAgICAg ICAgICAgICAgICAgICAgICAgICAgICAgICAgICAgICAgICAgDQogICAgICAgICAgICAgICAgICAgICAg ICAgICAgICAgICAgICAgICAgICAgICAgICAgICAgIC AgICAgICAgICAgICAgICAgICAgICAgICAgICAgICAgICAgICAgICAgICAgICAgDQogICAgICAgICAgIC AgICAgICAgICAgICAgICAgICAgICAgICAgICAgICAgICAgICAgICAgICAgICAgICAgICAgICAgICAgIC AgICAgICAgICAgICAgICAgICAgICAgICAgICAgDQog ICAgICAgICAgICAgICAgICAgICAgICAgICAgICAgICAgICAgICAgICAgICAgICAgICAgICAgICAgICAg XCPbMUUyUHNrEZQvRNKyZYXrZIIhNWZpXNBdPLYbSSYkLYXvDEYlLPi9M1iaBOEoHDExOT5gODp8Pf1+ RIbUKdHsVSA7ztZjfB0EPF4xf8IrOPrsEHCrt9JzHA g3NS9TJRTkZRcbOV2YSEqfex5VXKSmEYChlOFEh4jqKfRtTPE4EASeFfzzWB3ETKOgX1hepxCeCFGpMW PRFTfxTCXHLPbyVHTAQNTbUXSnMwCoTbBsITDjERBxUYHCGUU7VAXwDeDqRIznVQ8Kg6SmeIY9ZJy+Pg 8SWL6vg3OgCGduJCAcMA1sfp9SQFxYQjWjU1OrrrY8 FKC6SPNaKv1NGWHhOTJtjFBtPNAbLXGOQzIqG0ItqE63FWMVPt7+HNfzqkOaKpdYBlQ3GMQdz2IpIMh0 AY4UQDBwNOm1yDGeBBYFLVX6KHWuuUAdBATYAEWtcYthEWEeTJZwHGMwWr5vPQFiAQWdJiY8INKVOH4U ULXrUTIjePZiBGSaXVEVZD1POUypNWB9BTZitdJbuS EaUFstWQ5EHJAjirTiLvLsHOKGKQf+Pp5MKS2ur1FmZCbpOgKgXL1onf8HNNjMOnLbX8B0jIZtV3K1LQ ymYx6GYFWxKKWyAzVwCNVIALwwLC8ASR1zahR3KJ1OuZGmSFZkPILanFVwKVl7S58goCMbJZzqVQ2OEH A+Dania+Jq0MOOSnPGOuXXDfSkXeVGLRJqAcR7OpE8VP p7WrT9GuEY30lRusqoWbDWnmFM0YGA8lFJRqAXYHMT7LpVPfuI1avtCmNPNrMNEVLiKmA18hjZZvUBBe FYZmYXHiGg4KJKFzR8XzbyFozXinunXoVCXxFRCNEY5DDHhqhoSpzNQjtLfxGD24mVtaID8XRb1XZvAp MO2ltz8PsVJhVg9QIEJeEd8SQQZwBJSePJBpYFC4CK AjLlOzCOfsFIAjGBRtOBP3ZKDpNEIaQV7OTzPyWKUkMxq7VRXjZLWoQQYwvu0NFIPsHRR4UCGlRDGeFA GkUWJkJLteEVJzBXQtRAE7BGIlJTXcIK5QAwNuNBKqUGOfCGSgVXVgYEQpdq2GPKIgVSGdYIR7XAGcQC FfMWXkAVhxHEVjDUL3DTI1EGQwAEDxZA8BPlXvMOZx YBhrMcGqUDIxCIUpte6QBJOrNJSaZXn6XTEcMNPyNWNlJUxxDRGxSKYcWZc6VRFoDULgRD2TNzDhGJNs DXT4UoXvOAReVQCbkr7HMKUtTZMeATuvJHSgQHWkPQSrIExuKMVfPJG9IjO3KDPzEUKoPG4NZgUsMDMn WKl8UqKlMHShLRGsvu1PXCYoREZoCFtgCwHyFLMvKB KzNGssWULlPAAxEWR2IGOsIGNgFF0NLoIaVKDwZwE1QYVtJCNjNHCspp6OSXCfVSQeZoX2IqUwJWLiEY FcIImaTPMlUSThEQD1AGGcFRPiUB3QBtZrZJHgUhLbQAEyXOFqDEJmog8DEAEuBMXgCmC1IxJtZLEzRZ WoTPqvVNKvEUA6HxE4IIDaMAQeMK3HScBdIDVsLrL1 PTqhYMUtJKMtiv7QRFOaHIDxASy4OHPqGBVqFOWdKJgxLNBxAAX6RuL1OIRfZZZxSP9OQpWySMPgWuC5 UVTkCGYtWYUbeo6GJCQlTOYeHnN4EWFjJKKfPKCbGBpfTUJaDKA1NFyiOPOvHISpDN1BLdHzLYBeYir1 JNzuJLBbNCFxyf2JQYKvVXWiCkf7AcByLIGeULYkLQ umASFdEER0SzA0FVKyMAUqJG1BNnKoJGSqQwrmKDCrIQCgRNPfxx9NLTTkKUJxOMs3WDGlSMRwUGMlXN tnRHTtXTLqEap9UDGxMWKuUV9TCxFkAIByITAvXBnbODApWNDzod9LQTQtBDA8LSR5QZXdSRScBZUvHF i6cbZweMVxDNy6CU8PN8RwibHvPonJSh6Hv969EPB8 VGOtDw7JO3npOa1pATIcVNXLRl7YRMe3GJhxK4OzFDUnEYLeCyZ8JwSzAKfmZiUsLow2TrFyZFB+IDww M7KwQcYkY3A5IeUvROhgXtVkLTV6UQZdBeL0EhWtUE3bDXEAEa3+DUwcpPQudZcqUIXHErYdFrL6XVec [id number] ID Date Data Source [id number] 01/13/2020 09:31:[address] [facility] Name Value Range Interpretation Code Description Data Mera rce(s) Supporting Document(s) Lamotrigine [Mass/volume] in Serum or Plasma 6.4 ug/mL 3.0-14.0 [facility] ID Date Data Source [id number] 01/11/2020 04:48:59 PM [facility] Name Value Range Interpretation Code Description Data Mera rce(s) Supporting Document(s) Lamotrigine [Mass/volume] in Serum or Plasma 10.0 ug/mL 3.0-14.0 [facility] ID Date Data Source [id number] 01/11/2020 12:16:16 PM [facility] Name Value Range Interpretation Code Description Data Mera rce(s) Supporting Document(s) Lamotrigine [Mass/volume] in Serum or Plasma 3.0-14.0 [facility] Specimen HemolyzedNotified [id number] /[email or web address] 01/11/20 1213 6515. ID Date Data Source [id number] 01/11/2020 12:40:51 PM [facility] Name Value Range Interpretation Code Description Data Mera rce(s) Supporting Document(s) Choriogonadotropin.beta subunit [Moles/volume] in Serum or Plasma <5 [facility] ID Date Data Source [id number] 01/19/2020 10:40:00 AM [facility] First test? NOEmployed in healthcare? NOSymptomatic per CDC? NOHospitalized? NOICU? NOResident in congregated care? ex [facility]p, [facility] NO? NO Name Value Range Interpretation Code Description Data Mera rce(s) Supporting Document(s) SARS-CoV-2 RNA Negative Normal (applies to non-numeric r esults) [facility] Negative results should be treated as pr [...] Certificate of Accreditation. Factsheets for healthcare providers: https://www.fda.gov/media/494103/download Factsheets for patients: https://www.fda.gov/media/477665/download The ID NOW Instrument is a rapid molecular in vitro diagnostic test utilizing an isothermal nucleic acid amplification technology intended for the qualitative detection of nucleic acid from the SARS-CoV-2 viral RNA. THIS IS A STATE REPORTABLE COMMUNICABLE DISEASE. Manual entry verified by Mayelin Denson 01/19/20 1038 ID Date Data Source [id number] 01/19/2020 12:50:00 PM EST [facility] COVID-19 Patient Ethnicity Not or LatinoCOVID-19 Patient Race WhiteCOVID-19 Specimen Source Nasopharyngeal Name Value Range Interpretation Code Description Data Mera rce(s) Supporting Document(s) SARS-CoV-2 Specimen Source Normal (applies to n on-numeric results) [facility] SARS-CoV-2 RNA Normal (applies to non-numeric r esults) [facility] Patient Race Normal (applies to non-numeric result s) [facility] Patient Ethnicity Normal (applies to non-numeri c results) [facility] See scanned report ID Date Data Source [id number] 12/10/2019 08:10:00 AM EDT MEDENT ([facility], ) Name Value Range Interpretation Code Description Data Mera rce(s) Supporting Document(s) FVC-Pred 4.03 L MEDENT ([facility], ) PDFReport Laboratory test result MEDENT ([facility], ) FVC-LLN 3.29 L MEDENT ([facility]) FVC-%Pred-Pre 30 L MEDENT ([facility], ) FVC-Pre 1.22 L MEDENT ([facility]) Fev1-Pred 3.40 L MEDENT ([facility]) Fev1-Pre 1.21 L MEDENT ([facility], ) Fev1-%Pred-Pre 35 L MEDENT ([facility], ) Fev1-LLN 2.77 L MEDENT ([facility]) Fev6-Pre 1.22 L MEDENT ([facility]) Fev6-Pred 3.99 L MEDENT ([facility]) Fev6-%Pred-Pre 30 L MEDENT ([facility], ) Fev6-LLN 3.27 L MEDENT ([facility]) Wos2dcv-Iam 99 % MEDENT ([facility]) Dda3qry-Wsuz 85 % [facility] ([facility]) Zfw6bgk-Tljr 99 % [facility] ([facility]) Rhj8iqq-GWK 75 % MED[facility] ([facility]) Lyc9cuh-%Pred-Pre 116 % MEDENT ([facility]) FEFMax-Pred 7.30 L/E/sec MED[facility] ([facility]) Ymh4ysw-Uay 100 % MED[facility] ([facility]) Lly6laa-%Pred-Pre 100 % MEDENT ([facility]) FEFMax-%Pred-Pre 26 L/E/sec MEDENT ([facility]) FEFMax-Pre 1.96 L/E/sec MEDENT ([facility]) FEFMax-LLN 5.48 L/E/sec MED[facility] ([facility]) [id number]-Vdeb 3.61 L/E/sec MED[facility] ([facility]) Gqz7408-UXR 2.29 L/E/sec MED[facility] ([facility]) Vbj4070-%Pred-Pre 45 L/E/sec MEDENT ([facility]) Oms3143-Jkp 1.64 L/E/sec MEDENT ([facility]) ExpTime-Pre 1.59 sec MEDENT ([facility]) Hii0xvk0-Toqg 86 % MEDENT ([facility]) Tzf5syg1-%Pred-Pre 115 % [facility] ([facility]) Dsi0rpu2-Igl 99 % [facility] ([facility]) Gik6qso8-EMM 77 % [facility] ([facility]) ID Date Data Source [id number] 11/06/2019 03:49:00 PM EDT MEDENT ([facility]) Name Value Range Interpretation Code Description Data Mera rce(s) Supporting Document(s) Lamotrigine [Mass/volume] in Serum or Plasma 9.0 ug/mL 2.0-20.0 [facility] ([facility]) Testing on this sample was performed by homogeneous enzyme immunoassay. Detection Limit = 1.0 Performed at: [facility] [address] [id number] Clerical Administrator: Nilam Mendoza [facility], Phone: [phone] ID Date Data Source [id number] 08/02/2019 03:39:00 PM EDT [facility] Name Value Range Interpretation Code Description Data Mera rce(s) Supporting Document(s) Respiratory specimen severe acute respir atory syndrome coronavirus 2 (SARS-CoV-2) RNA [facility] ital This lab was ordered by [facility] peggy and reported by [facility]. ID Date Data Source [id number] 08/02/2019 04:11:00 PM EDT [facility] PLEASE FAX TO [phone] COVID-19 Spe cimen Source NASOPHARYNGEALIs Patient admitted or to be admitted? N Name Value Range Interpretation Code Description Data Mera rce(s) Supporting Document(s) SARS-CoV-2 RNA Negative Normal (applies to non-numeric r esults) [facility] 2019-novel Coronavirus (2019-nCoV) not d etected by [...] in accordance with CLIA regulations, [employer] (CAP) guidelines (May 28, 2019), and FDA guidance (May 09, 2019). This test is only for use under the Food and Drug Administration's Emergency Use Authorization. THIS IS A STATE REPORTABLE COMMUNICABLE DISEASE. Performing Lab Normal (applies to non-numeric r esults) [facility] Is Patient Admitted or Awaiting Admissio n?:N COVID-19 Specimen Source: TAILER OUT NOTE: RESULTS HAVE BEEN REFORMATTED PLEASE REVIEW RESULTS CAREFULLY THE LOCATION OF INFORMATION MAY HAVE CHANGED Test performed or referred by The [address] [address] ID Date Data Source [id number] 08/02/2019 03:39:00 PM EDT [facility] PLEASE FAX TO [phone] COVID-19 Spe cimen Source NASOPHARYNGEALIs Patient admitted or to be admitted? N Name Value Range Interpretation Code Description Data Mera rce(s) Supporting Document(s) SARS-CoV-2 RNA Negative Normal (applies to non-numeric r esults) [facility] 2019-novel Coronavirus (2019-nCoV) not d etected [...] in accordance with CLIA regulations, [employer] (CAP) guidelines (May 28, 2019), and FDA guidance (May 09, 2019). This test is only for use under the Food and Drug Administration's Emergency Use Authorization. THIS IS A STATE REPORTABLE COMMUNICABLE DISEASE. Performing Lab Normal (applies to non-numeric r esults) [facility] Is Patient Admitted or Awaiting Admissio n?:N COVID-19 Specimen Source: TAILER OUT NOTE: RESULTS HAVE BEEN REFORMATTED PLEASE REVIEW RESULTS CAREFULLY THE LOCATION OF INFORMATION MAY HAVE CHANGED Test performed or referred by The [address] [address] ID Date Data Source [id number] 05/21/2019 06:33:00 AM EDT [facility] Name Value Range Interpretation Code Description Data Mera rce(s) Supporting Document(s) QuantiFERON Criteria (SEE NOTE) Normal (applies to non-num cliff results) [facility] ([facility], ) will discuss at follow-up QuantiFERON TB2 Ag Value 0.04 IU/ml Normal (applies to non -numeric results) [facility] ([facility], ) will discuss at follow-up QuantiFERON TB1 Ag Value 0.05 IU/ml Normal (applies to non -numeric results) [facility] ([facility], ) will discuss at follow-up QuantiFERON Nil Value 0.03 IU/ml Normal (applies to non-nu meric results) [facility] ([facility], ) will discuss at follow-up QuantiFERON Mitogen Value >10.00 IU/ml Normal (applies to non-numeric results) [facility] ([facility], ) will discuss at follow-up QuantiFERON-TB Gold Plus Negative Normal (applies to non -numeric results) [facility] ([facility]) will discuss at follow-up ID Date Data Source [id number] 05/21/2019 06:33:00 AM EDT [facility] ([facility]) Name Value Range Interpretation Code Description Data Mera rce(s) Supporting Document(s) Aspergillus Flavus Meghan Negative Normal (applies to non-n umeric results) [facility] ([facility]) will discuss at follow-up Aspergillus Fumigatus Meghan Negative Normal (applies to no n-numeric results) [facility] ([facility]) will discuss at follow-up Aspergillus Niger Meghan Negative Normal (applies to non-nu meric results) [facility] ([facility]) will discuss at follow-up ID Date Data Source [id number] 05/21/2019 06:33:00 AM EDT [facility] ([facility]) Name Value Range Interpretation Code Description Data Mera rce(s) Supporting Document(s) Histoplasmosis Antibody Negative Normal (applies to non- numeric results) [facility] ([facility]) will discuss at follow-up Coccidioides sp Ab [Units/volume] in Serum 0.3 IV Normal (applies to non- numeric results) [facility] ([facility]) will discuss at follow-up Blastomyces Antibody Level Negative Normal (applies to n on-numeric results) [facility] ([facility]) will discuss at follow-up Cryptococcus sp Ag [Presence] in Serum by Immunoassay Negative Normal (applies to non-numeric results) [facility] ([facility]) will discuss at follow-up ID Date Data Source [id number] 05/21/2019 06:33:00 AM EDT [facility] ([facility]) Name Value Range Interpretation Code Description Data Mera rce(s) Supporting Document(s) Ast/Sgot 14 U/L 7-37 Normal (applies to non-numeric resul ts) [facility] ([facility]) will discuss at follow-up Alt/SGPT 25 U/L 12-78 Normal (applies to non-numeric resul ts) [facility] ([facility]) will discuss at follow-up Bilirubin,Total 0.3 mg/dL 0.2-1.0 Normal (applies to non-numeric results) [facility] ([facility]) will discuss at follow-up Alkaline Phosphatase 204 U/L 45-117 Above high normal [facility] ([facility]) will discuss at follow-up Bilirubin,Direct 0.2 mg/dL 0.0-0.2 Normal (applies to non-numeric results) [facility] ([facility]) will discuss at follow-up Total Protein 6.8 GM/DL 6.4-8.2 Normal (applies to non-numeric re sults) [facility] ([facility]) will discuss at follow-up Albumin/Globulin Ratio 0.84 1.00-1.93 Below low normal [facility] ([facility]) will discuss at follow-up Albumin 3.1 GM/DL 3.2-5.2 Below low normal [facility] ( [facility]) will discuss at follow-up ID Date Data Source [id number] 05/21/2019 06:33:00 AM EDT [facility] ([facility]) Name Value Range Interpretation Code Description Data Mera rce(s) Supporting Document(s) Creatinine For GFR 0.80 mg/dL 0.55-1.30 Normal (applies to non -numeric results) [facility] ([facility]) will discuss at follow-up Glomerular Filtration Rate > 60.0 Normal (applies to n on-numeric results) [facility] ([facility]) will discuss at follow-up ID Date Data Source [id number] 05/21/2019 06:33:00 AM EDT [facility] ([facility]) Name Value Range Interpretation Code Description Data Mera rce(s) Supporting Document(s) White Blood Count 8.2 10 4.0-10.0 Normal (applies to non-numeri c results) [facility] ([facility]) will discuss at follow-up Red Blood Count 4.69 10 4.00-5.40 Normal (applies to non-numeric results) [facility] ([facility]) will discuss at follow-up Hematocrit 40.8 % 36.0-47.0 Normal (applies to non-numeric resul ts) [facility] ([facility], ) will discuss at follow-up Hemoglobin 13.0 g/dL 12.0-15.5 Normal (applies to non-numeric resul ts) [facility] ([facility]) will discuss at follow-up Mean Corpuscular Volume 87.0 fl 80.0-96.0 Normal ( applies to non-numeric results) [facility] ([facility]) will discuss at follow-up Mean Corpuscular Hemoglobin 27.7 pg 27.0-33.0 Norm al (applies to non-numeric results) [facility] ([facility]) will discuss at follow-up Mean Corpuscular HGB Conc 31.9 g/dL 32.0-36.5 Below low normal [facility] ([facility]) will discuss at follow-up Red Cell Distribution Width 13.2 % 11.5-14.5 Norm al (applies to non-numeric results) [facility] ([facility]) will discuss at follow-up Platelet Count, Automated 371 10 150-450 Normal (applies to non-numeric results) [facility] ([facility]) will discuss at follow-up Lymph % 12.6 % 24.0-44.0 Below low normal [facility] ( [facility]) will discuss at follow-up [place] % 8.2 % 0.0-5.0 Above high normal [facility] ([facility]) will discuss at follow-up Neutrophils % 74.3 % 36.0-66.0 Above high normal [facility] ([facility]) will discuss at follow-up Baso % 0.7 % 0.0-1.0 Normal (applies to non-numeric resul ts) [facility] ([facility]) will discuss at follow-up Immature Granulocyte % 1.0 % 0-3.0 Normal (applies to non-n umeric results) [facility] ([facility]) will discuss at follow-up Eos % 3.2 % 0.0-3.0 Above high normal [facility] ([facility]) will discuss at follow-up Nucleated Red Blood Cell % 0.0 % 0-0 Normal (applies to n on-numeric results) [facility] ([facility], ) will discuss at follow-up Neutrophils # 6.1 10 1.5-8.5 Normal (applies to non-numeric re sults) [facility] ([facility]) will discuss at follow-up Lymph # 1.0 10 1.5-5.0 Below low normal [facility] ( [facility]) will discuss at follow-up Eos # 0.3 10 0.0-0.5 Normal (applies to non-numeric resul ts) [facility] ([facility]) will discuss at follow-up [place] # 0.7 10 0.0-0.8 Normal (applies to non-numeric resul ts) [facility] ([facility]) will discuss at follow-up Baso # 0.1 10 0.0-0.2 Normal (applies to non-numeric resul ts) [facility] ([facility]) will discuss at follow-up ID Date Data Source [id number] 05/21/2019 06:33:00 AM EDT [facility] ([facility]) Name Value Range Interpretation Code Description Data Mera rce(s) Supporting Document(s) Calcium [Mass/volume] in Serum or Plasma 9.1 mg/dL 8.5-10. 1 Normal (applies to non-numeric results) [facility] ([facility]) will discuss at follow-up Calcitriol [Mass/volume] in Serum or Plasma 62.5 pg/mL 19.9 -79.3 Normal (applies to non-numeric results) [facility] ([facility]) will discuss at follow-up Calcidiol [Mass/volume] in Serum or Plasma 51.2 ng/mL 30.0- 100.0 Normal (applies to non-numeric results) [facility] ([facility]) will discuss at follow-up Angiotensin converting enzyme [Enzymatic activity/volu me] in Serum or Plasma 39 U/L 14-82 Normal (applies to non-numeric results) [facility] ([facility]) will discuss at follow-up ID Date Data Source [id number] 05/12/2019 11:45:00 AM EST [facility] ([facility]) Name Value Range Interpretation Code Description Data Mera rce(s) Supporting Document(s) Surgical pathology study (SEE NOTE) [facility] ([facility]) FINAL DIAGNOSIS Gallbladder, cholecystectomy: Cholelithithiasis/choledocholithiasis. Acute and chronic cholecystitis. 05/14/2019 - 1325 CLINICAL DIAGNOSIS Recent choledocholithiasis 05/13/2019 - 0648 GROSS DIAGNOSIS Received in formalin labeled "gallbladder" is a gallbladder 9 x 3 x 2 cm. On opening two gallstones are identified with one in cystic duct measuring 1 to 1.2 cm. The mucosal is grossly unremarkable. The wall is 5-6mm in thickness. [employer] ons are submitted in one. -OA 05/14/2019 - 1324 Signed KENTON WHALEN MD 05/14/2019 1325 ID Date Data Source [id number] 02/18/2019 10:03:00 AM EST [facility] ([facility]) Name Value Range Interpretation Code Description Data Mera rce(s) Supporting Document(s) Microscopic observation [Identifier] in Unspecified specimen by Non- gynecological cytology method (SEE NOTE) [facility] ([facility]) SPECIMEN: FNA Right hilar/sub carinal lymph node Cytolyt and prepared slides receeved SPECIMEN ADEQUACY: Satisfactory for evaluation CATEGORIZATION: Negative for Malignancy DESCRIPTIONS: Few collections of histyocytes, suggestive of a granulomatous process. COMMENTS: See cell block report [id number] 02/19/2019 - 1309 Signed COLEEN BRAVO([facility]) 02/19/2019 0858 (Prelim) Signed Leah Breaux MD 02/19/2019 1310 ID Date Data Source [id number] 02/18/2019 09:51:00 AM EST [facility] ([facility]) Name Value Range Interpretation Code Description Data Mera rce(s) Supporting Document(s) Surgical pathology study (SEE NOTE) [facility] ([facility]) FINAL DIAGNOSIS Cell block of FNA from [...] Never Smoker completed Never S moker eCW1 ([facility]) Alcohol intake 01/11/2020 12:00:00 AM EST Lifetime non-drinker (finding) completed Lifetime non-drinker (finding) [facility] Tobacco use and exposure 01/11/2020 12:00:00 AM EST Never used co mpleted Never used [facility] Smoking 01/11/2020 12:00:00 AM EST Never smoker completed Never s [facility] Smoking 12/10/2019 12:00:00 AM EDT Patient has never smoked co mpleted Patient has never smoked [facility] ([facility]) Smoking 08/18/2019 12:00:00 AM EDT Never Smoker completed Never S moker eCW1 ([facility]) Smoking 08/18/2019 12:00:00 AM EDT Never Smoker completed Never S moker eCW1 ([facility]) Smoking 08/18/2019 12:00:00 AM EDT Never Smoker completed Never S moker eCW1 ([facility]) Smoking 08/18/2019 12:00:00 AM EDT Never Smoker completed Never S moker eCW1 ([facility]) Smoking 08/18/2019 12:00:00 AM EDT Never Smoker completed Never S moker eCW1 ([facility]) Smoking 08/18/2019 12:00:00 AM EDT Never Smoker completed Never S moker eCW1 ([facility]) Smoking 08/13/2019 12:00:00 AM EDT Never Smoker completed Never S moker eCW1 ([facility]) Smoking 08/13/2019 12:00:00 AM EDT Never Smoker completed Never S moker eCW1 ([facility]) Smoking 08/13/2019 12:00:00 AM EDT Never Smoker completed Never S lindaker eCW1 ([facility]) Vital Signs ID Date Data Source UNK Name Value Range Interpretation Code Description Data Source(s) Diastolic blood pressure 74 mm[Hg] 74 mm[Hg] eCW1 ([facility]) Systolic blood pressure 112 mm[Hg] 112 mm[Hg] e CW1 ([facility]) Body temperature 97.4 [degF] 97.4 [degF] eCW1 ( [facility]) Respiratory rate 17 /min 17 /min eCW1 ([facility]) Heart rate 84 /min 84 /min eCW1 ([facility]) Body mass index (BMI) [Ratio] 31.32 kg/m2 31.32 kg/m2 W1 ([facility]) Body height 67 [in_i] 67 [in_i] eCW1 ([facility]) Body weight 200 [lb_av] 200 [lb_av] eCW1 ([facility]) Body weight 81.194 kg 81.194 kg [facility] ([facility]) [place] body weight 130 [lb_av] 130 [lb_av] MEDEN T ([facility]) Body mass index (BMI) [Ratio] 28.9 kg/m2 28.9 k g/m2 [facility] ([facility]) Body weight 179.00 [lb_av] 179.00 [lb_av] MEDEN T ([facility]) Body height 66 [in_i] 66 [in_i] [facility] ([facility]) 5'6" Body temperature 96.5 [degF] 96.5 [degF] [facility] ([facility]) Oxygen saturation in Arterial blood by Pulse oximetry 95 % 95 % [facility] ([facility]) Heart rate 75 /min 75 /min [facility] ([facility]) Diastolic blood pressure 82 mm[Hg] 82 mm[Hg] [facility] ([facility], ) Systolic blood pressure 104 mm[Hg] 104 mm[Hg] [facility] Respiratory rate 16 /min 16 /min MED[facility] ( [facility], ) Heart rate 68 /min 68 /min [facility] ([facility], ) Diastolic blood pressure 70 mm[Hg] 70 mm[Hg] [facility] ([facility], ) Systolic blood pressure 110 mm[Hg] 110 mm[Hg] [facility] Body mass index (BMI) [Ratio] 29.9 kg/m2 29.9 k g/m2 [facility] ([facility] Heart rate 84 /min 84 /min [facility] ([facility] Diastolic blood pressure 82 mm[Hg] 82 mm[Hg] [facility] ([facility] Systolic blood pressure 118 mm[Hg] 118 mm[Hg] [facility] Body weight 191.00 [lb_av] 191.00 [lb_av] MEDEN T ([facility] Body height 67 [in_i] 67 [in_i] [facility] ([facility] 5'7" Diastolic blood pressure 66 mm[Hg] 66 mm[Hg] eCW1 ([facility]) Systolic blood pressure 108 mm[Hg] 108 mm[Hg] e CW1 ([facility]) Body mass index (BMI) [Ratio] 29.60 kg/m2 29.60 kg/m2 eCW1 ([facility]) Body height 67 [in_i] 67 [in_i] W1 ([facility]) Body weight 189 [lb_av] 189 [lb_av] W1 ([facility]) Body weight 80.854 kg 80.854 kg [facility] ([facility], ) [place] body weight 130 [lb_av] 130 [lb_av] MEDEN T ([facility]) Body mass index (BMI) [Ratio] 28.8 kg/m2 28.8 k g/m2 [facility] ([facility]) Body weight 178.25 [lb_av] 178.25 [lb_av] [employer] [facility] ([facility]) Body height 66 [in_i] 66 [in_i] [facility] ([facility]) 5'6" Oxygen saturation in Arterial blood by Pulse oximetry 98 % 98 % [facility] ([facility]) Heart rate 96 /min 96 /min [facility] ([facility]) Diastolic blood pressure 76 mm[Hg] 76 mm[Hg] [facility] ([facility]) Systolic blood pressure 108 mm[Hg] 108 mm[Hg] [facility] ([facility]) Body weight 80.797 kg 80.797 kg [facility] ([facility]) Body mass index (BMI) [Ratio] 28.7 kg/m2 28.7 k g/m2 [facility] ([facility]) Body weight 178.12 [lb_av] 178.12 [lb_av] [facility] ([facility]) Body height 66 [in_i] 66 [in_i] [facility] ([facility]) 5'6" Diastolic blood pressure 64 mm[Hg] 64 mm[Hg] [facility] ([facility]) Systolic blood pressure 112 mm[Hg] 112 mm[Hg] [facility] ([facility]) Body mass index (BMI) [Ratio] 28 kg/m2 28 kg/ m2 [facility] ([facility]) Body height 67 [in_us] 67 [in_us] [facility] ([facility]) Body weight Measured [lb_av] [facility] ([facility]) Systolic blood pressure 122 mm[Hg] 122 mm[Hg] [facility] ([facility]) Body weight 80.911 kg 80.911 kg [facility] ([facility]) Body mass index (BMI) [Ratio] 28.8 kg/m2 28.8 k g/m2 [facility] ([facility], ) Body weight 178.38 [lb_av] 178.38 [lb_av] MEDEN T ([facility], ) Body height 66 [in_i] 66 [in_i] MEDENT ([facility], ) 5'6" Diastolic blood pressure 74 mm[Hg] 74 mm[Hg] [facility] ([facility], ) Body weight 79.380 kg 79.380 kg [facility] ([facility]) Body mass index (BMI) [Ratio] 28.2 kg/m2 28.2 k g/m2 [facility] ([facility]) Heart rate 78 /min 78 /min [facility] ([facility]) Diastolic blood pressure 79 mm[Hg] 79 mm[Hg] [facility] ([facility]) Systolic blood pressure 114 mm[Hg] 114 mm[Hg] M EDENT ([facility]) Body weight 175.00 [lb_av] 175.00 [lb_av] MEDEN T ([facility]) Body height 66 [in_i] 66 [in_i] [facility] ([facility]) 5'6" Respiratory rate 16 /min 16 /min MED[facility] ( [facility], ) Heart rate 88 /min 88 /min MEDENT ([facility], ) Diastolic blood pressure 70 mm[Hg] 70 mm[Hg] MEDENT ([facility], ) Systolic blood pressure 110 mm[Hg] 110 mm[Hg] M EDENT ([facility], ) Diastolic blood pressure 66 mm[Hg] 66 mm[Hg] eCW1 ([facility]) Systolic blood pressure 110 mm[Hg] 110 mm[Hg] e CW1 ([facility]) Body mass index (BMI) [Ratio] 28.28 kg/m2 28.28 kg/m2 W1 ([facility]) Body height 67 [in_us] 67 [in_us] W1 ([facility]) Body weight Measured 180.6 [lb_av] 180.6 [lb_av ] [facility] ([facility]) Body weight 79.834 kg 79.834 kg [facility] ([facility], ) Body mass index (BMI) [Ratio] 28.8 kg/m2 28.8 k g/m2 [facility] ([facility]) Body weight 176.00 [lb_av] 176.00 [lb_av] MEDEN T ([facility]) Body height 65.5 [in_i] 65.5 [in_i] [facility] ([facility]) 5'5.50" Oxygen saturation in Arterial blood by Pulse oximetry 98 % 98 % [facility] ([facility]) Heart rate 94 /min 94 /min [facility] ([facility]) Diastolic blood pressure 70 mm[Hg] 70 mm[Hg] [facility] ([facility]) Systolic blood pressure 102 mm[Hg] 102 mm[Hg] [facility] ([facility]) Body weight 78.926 kg 78.926 kg [facility] ([facility]) Body mass index (BMI) [Ratio] 28.5 kg/m2 28.5 k g/m2 [facility] ([facility]) Body weight 174.00 [lb_av] 174.00 [lb_av] MEDEN T ([facility]) Body height 65.5 [in_i] 65.5 [in_i] [facility] ([facility]) 5'5.50" Oxygen saturation in Arterial blood by Pulse oximetry 98 % 98 % [facility] ([facility]) Room Air Heart rate 78 /min 78 /min [facility] ([facility]) Diastolic blood pressure 70 mm[Hg] 70 mm[Hg] [facility] ([facility]) Systolic blood pressure 116 mm[Hg] 116 mm[Hg] [facility] Diastolic blood pressure 60 mm[Hg] 60 mm[Hg] eCW1 ([facility]) Systolic blood pressure 100 mm[Hg] 100 mm[Hg] e CW1 ([facility]) Body temperature 97 [degF] 97 [degF] eCW1 ([facility]) Respiratory rate 20 /min 20 /min eCW1 ([facility]) Heart rate 74 /min 74 /min eCW1 ([facility]) Body mass index (BMI) [Ratio] 27.25 kg/m2 27.25 kg/m2 eCW1 ([facility]) Body height 67 [in_us] 67 [in_us] eCW1 ([facility]) Body weight Measured 174 [lb_av] 174 [lb_av] eC W1 ([facility]) ID Date Data Source [id number] 03/03/2020 10:35:00 AM EST [facility] Name Value Range Interpretation Code Description Data Source(s) Weight Measurement Method 8 8 [facility] Weight 3360 3360 [facility] pital Temperature Source [address] [facility] Temperature 96.0 96.0 [facility] spital Respiratory Effort [address] [facility] Respiratory Rate 18 18 [facility] Pulse Assessment Method 4 4 G [facility] Pulse Rate 84 84 [facility] pital Height 66 66 [facility] Blood Pressure 95/80 95/80 [facility] Weight Measurement Method 8 8 [facility] Weight 3360 3360 [facility] pital Temperature Source [address] [facility] Temperature 96.0 96.0 [facility] spital Respiratory Effort [address] [facility] Respiratory Rate 18 18 [facility] Pulse Assessment Method 4 4 G [facility] Pulse Rate 84 84 [facility] pital Height 66 66 [facility] Blood Pressure 95/80 95/80 [facility] ID Date Data Source [id number] 01/20/2020 03:57:01 PM [facility] Name Value Range Interpretation Code Description Data Source(s) WEIGHT RECORDED 204.[address] [facility] Body height Measured 67.2 in 67.2 in [facility] Patient Treatment Plan of Care Planned Activity Planned Date Details Description Data Source (s) Sodium Chloride 0.111 MEQ/ML Nasal Radisson 03/10/2020 12:00:00 AM EST eCW1 ([facility]) Fluticasone Propionate 50 MCG/ACT 02/22/2020 12:00:00 AM EST eCW1 ([facility]) Fluticasone Propionate 50 MCG/ACT 02/22/2020 12:00:00 AM EST eCW1 ([facility]) Acetaminophen 325 MG Oral Tablet 01/11/2020 07:53:09 AM [facility] Bisacodyl 10 MG Rectal Suppository 01/11/2020 07:53:09 AM [facility] alginic acid 200 MG / Calcium Carbonate 80 MG / magnesium trisilicate 20 MG / Sodium Bicarbonate 70 MG Oral Tablet 01/11/2020 07:53:09 AM [facility] Diphenhydramine Hydrochloride 25 MG Oral Capsule 01/11/2020 07:53:0 9 AM [facility] Ibuprofen 200 MG Oral Tablet 01/11/2020 07:53:09 AM [facility] Magnesium Hydroxide 80 MG/ML Oral Suspension 01/11/2020 07:53:09 AM [facility] Ondansetron 4 MG Oral Tablet 01/11/2020 07:53:09 AM [facility] drospirenone 3 MG / Ethinyl Estradiol 0.02 MG Oral Tab let 01/04/2020 12:00:00 AM [facility] ospital lamotrigine 200 MG Oral Tablet 12/27/2019 12:00:00 AM [facility] 24 HR venlafaxine 37.5 MG Extended Release Oral Capsul e 12/27/2019 12:00:00 AM [facility] ospital Hydroxyzine Hydrochloride 25 MG Oral Tablet 12/27/2019 12:00:00 AM [facility] aripiprazole 20 MG Oral Tablet 12/27/2019 12:00:00 AM [facility] buspirone hydrochloride 10 MG Oral Tablet 12/23/2019 12:00:00 AM [facility] 24 HR venlafaxine 75 MG Extended Release Oral Capsule 12/20/2019 12:00:00 AM [facility] ospital Orthotics 08/26/2019 12:00:00 AM EDT e CW1 ([facility]) Orthotics 08/26/2019 12:00:00 AM EDT e CW1 ([facility]) Orthotics 08/26/2019 12:00:00 AM EDT e CW1 ([facility]) Orthotics 08/26/2019 12:00:00 AM EDT e CW1 ([facility]) cetirizine hydrochloride 10 MG Oral Tablet [Zyrtec] 06/26/19 12:00:00 AM EDT eCW1 ([facility]) cetirizine hydrochloride 10 MG Oral Tablet [Zyrtec] 06/26/19 12:00:00 AM EDT eCW1 ([facility]) cetirizine hydrochloride 10 MG Oral Tablet [Zyrtec] 06/26/19 12:00:00 AM EDT eCW1 ([facility]) cetirizine hydrochloride 10 MG Oral Tablet [Zyrtec] 06/26/19 12:00:00 AM EDT eCW1 ([facility]) cetirizine hydrochloride 10 MG Oral Tablet [Zyrtec] 06/26/19 12:00:00 AM EDT eCW1 ([facility]) cetirizine hydrochloride 10 MG Oral Tablet [Zyrtec] 06/26/19 12:00:00 AM EDT eCW1 ([facility]) cetirizine hydrochloride 10 MG Oral Tablet [Zyrtec] 06/26/19 12:00:00 AM EDT eCW1 ([facility]) cetirizine hydrochloride 10 MG Oral Tablet [Zyrtec] 06/26/19 12:00:00 AM EDT eCW1 ([facility]) cetirizine hydrochloride 10 MG Oral Tablet [Zyrtec] 06/26/19 12:00:00 AM EDT eCW1 ([facility]) cetirizine hydrochloride 10 MG Oral Tablet [Zyrtec] 06/26/19 12:00:00 AM EDT eCW1 ([facility]) 12 HR cetirizine hydrochloride 5 MG / Ps eudoephedrine Hydrochloride 120 MG Extended Release Oral Tablet [Zyrtec-D] 06/18/2019 12:00:00 AM EDT eCW1 ([facility])
[2020-03-23 17:04] VITALS: BP 114/78
== END 2020-03-23 17:32 | disposition home or self-care (01) ==
LOC: M ED 13:37
DX: F45.8 Other somatoform disorders (principal); F41.9 Anxiety disorder, unspecified; F81.9 Developmental disorder of scholastic skills, unspecified; R56.9 Unspecified convulsions; Z51.81 Encounter for therapeutic drug level monitoring; E78.1 Pure hyperglyceridemia; F31.9 Bipolar disorder, unspecified; D86.9 Sarcoidosis, unspecified; J30.9 Allergic rhinitis, unspecified; Z79.899 Other long term (current) drug therapy
CPT/HCPCS: 36415; 80053; 80061; 80164; 80175; 83036; 85027; 99284; G0480

== ENCOUNTER → 2020-03-23 | Outpatient (CLI) | payer MEDICARE, MEDICAID ==
[2020-03-23 12:47] LABS: HEMATOCRIT 40.9 % (36.0-47.0); HEMOGLOBIN 12.8 g/dl (12.0-15.5); MEAN CORPUSCULAR HEMOGLOBIN 28.1 pg (27.0-33.0); MEAN CORPUSCULAR HGB CONC 31.3 g/dl (32.0-36.5); MEAN CORPUSCULAR VOLUME 89.9 fl (80.0-96.0); PLATELET COUNT, AUTOMATED 293 10^3/uL (150-450); RED BLOOD COUNT 4.55 10^6/uL (4.00-5.40)
[2020-03-23 13:25] LABS: ALT/SGPT 105 U/L (12-78); BILIRUBIN,TOTAL 4.9 MG/DL (0.2-1.0); BLOOD UREA NITROGEN 9 MG/DL (7-18); CALCIUM LEVEL 9.2 MG/DL (8.5-10.1); CARBON DIOXIDE LEVEL 28 MEQ/L (21-32); CHLORIDE LEVEL 104 MEQ/L (98-107); GLOMERULAR FILTRATION RATE > 60.0 (>60); GLUCOSE, FASTING 64 MG/DL (70-100); POTASSIUM SERUM 3.7 MEQ/L (3.5-5.1); SODIUM LEVEL 139 MEQ/L (136-145); TRIGLYCERIDES LEVEL 228 MG/DL (<150)
[2020-03-23 13:26] LABS: ALBUMIN 2.9 GM/DL (3.2-5.2); CHOLESTEROL LEVEL 303 MG/DL (<200); CHOLESTEROL RISK RATIO 8.911 (<5); HDL CHOLESTEROL 34 MG/DL (>40); HEMOGLOBIN A1c 4.9 %; LDL CHOLESTEROL 223 MG/DL (<100); NON-HDL-C 269 MG/DL; TOTAL PROTEIN 6.7 GM/DL (6.4-8.2)
== END ==
LOC: M LAB 09:18
PROVIDERS: ATTEND Student in an Organized Health Care Education/Training Program
DX: E78.1 Pure hyperglyceridemia (principal); F31.9 Bipolar disorder, unspecified; D86.9 Sarcoidosis, unspecified

== ENCOUNTER → 2020-03-23 | Outpatient (CLI) | payer MEDICARE, MEDICAID | LOC: M LAB 09:13 | PROVIDERS: ATTEND Physician Assistant Medical | DX: R56.9 Unspecified convulsions (principal); Z51.81 Encounter for therapeutic drug level monitoring ==

== ENCOUNTER → 2020-03-29 | Outpatient (REF) | payer MEDICARE, MEDICAID ==
[2020-03-29 12:01] LABS: HEPATITIS B SURFACE ANTIBODY NEGATIVE (POSITIVE)
[2020-03-29 12:12] LABS: HEPATITIS B SURFACE ANTIGEN NEGATIVE (NEGATIVE)
[2020-03-29 12:40] LABS: HEPATITIS C VIRUS ABY INDEX < 0.0 INDEX (<0.8)
[2020-03-29 12:53] LABS: HEPATITIS A ANTIBODY IGM NEGATIVE (NEGATIVE)
[2020-04-01 13:15] LABS: 5' NUCLEOTIDASE 21 IU/L (0-10); ANTI-MITOCHONDRIAL ANTIBODY <20.0 Units (0.0-20.0); HEPATITIS B CORE ANTIBODY IGG Negative (Negative)
== END ==
LOC: M SFHCPLAZ 09:17
PROVIDERS: ATTEND Student in an Organized Health Care Education/Training Program
DX: R94.5 Abnormal results of liver function studies (principal); Z79.899 Other long term (current) drug therapy
CPT/HCPCS: 36415; 82977; 83915; 86255; 86704; 86706; 86709; 86803; 87340; G0463

== ENCOUNTER → 2020-04-12 | Outpatient (CLI) | payer MEDICARE, MEDICAID ==
[2020-04-12 12:54] LABS: ALBUMIN 3.5 GM/DL (3.2-5.2); ALT/SGPT 42 U/L (12-78); BILIRUBIN,TOTAL 0.8 MG/DL (0.2-1.0); BLOOD UREA NITROGEN 12 MG/DL (7-18); CARBON DIOXIDE LEVEL 28 MEQ/L (21-32); CHLORIDE LEVEL 105 MEQ/L (98-107); CREATININE FOR GFR 0.86 MG/DL (0.55-1.30); GLOMERULAR FILTRATION RATE > 60.0 (>60); GLUCOSE, FASTING 86 MG/DL (70-100); POTASSIUM SERUM 4.3 MEQ/L (3.5-5.1); SODIUM LEVEL 141 MEQ/L (136-145); TOTAL PROTEIN 6.9 GM/DL (6.4-8.2)
== END ==
LOC: M LAB 10:56
PROVIDERS: ATTEND Physician Assistant Medical
DX: G43.909 Migraine, unspecified, not intractable, without status migrainosus (principal)

== ENCOUNTER → 2020-04-13 | Outpatient (CLI) | payer MEDICARE, MEDICAID ==
--- NOTE | 2020-04-13 08:52 | REP ---
INDICATION: R94.5 ABNORMAL LFTs. COMPARISON: Comparison CT study abdomen and pelvis 21 January 2019.. TECHNIQUE: Right upper quadrant sonography. FINDINGS: Scanning through the right upper quadrant of the abdomen demonstrates an enlarged homogeneous liver. No focal liver lesion is seen. There is some intrahepatic ductal dilation seen. The gallbladder surgically absent. Choledocholithiasis is seen with at least 3 large shadowing calculi in the common bile duct. The common bile duct is dilated measuring 1.2 cm in greatest diameter. The choledocholithiasis measure 1.1, 1.6, and 1.6 cm in greatest diameter. Pancreas is partially obscured by bowel gas. No pancreatic abnormality is seen. There is no evidence of ascites or right renal abnormality. The right kidney measures 10.6 x 5.7 x 3.9.. IMPRESSION: Multiple choledocholithiasis with mildly dilated common bile duct and intrahepatic ductal dilation. Post cholecystectomy. Hepatomegaly.. <Electronically signed by Ethan Copeland > 04/13/20 0809
== END ==
LOC: M WHC 06:23
PROVIDERS: ATTEND Student in an Organized Health Care Education/Training Program
DX: K80.50 Calculus of bile duct without cholangitis or cholecystitis without obstruction (principal); R94.5 Abnormal results of liver function studies

== ENCOUNTER → 2020-04-27 | Outpatient (REF) | payer MEDICARE, MEDICAID ==
[2020-04-27 13:55] LABS: ALBUMIN 3.6 GM/DL (3.2-5.2); ALT/SGPT 27 U/L (12-78); BILIRUBIN,TOTAL 0.6 MG/DL (0.2-1.0); BLOOD UREA NITROGEN 13 MG/DL (7-18); CALCIUM LEVEL 9.5 MG/DL (8.5-10.1); CARBON DIOXIDE LEVEL 31 MEQ/L (21-32); CHLORIDE LEVEL 106 MEQ/L (98-107); CREATININE FOR GFR 0.87 MG/DL (0.55-1.30); GLOMERULAR FILTRATION RATE > 60.0 (>60); GLUCOSE, FASTING 72 MG/DL (70-100); POTASSIUM SERUM 4.2 MEQ/L (3.5-5.1); SODIUM LEVEL 143 MEQ/L (136-145); TOTAL PROTEIN 6.8 GM/DL (6.4-8.2)
== END ==
LOC: M SFHCPLAZ 09:16
PROVIDERS: ATTEND Family Medicine
DX: R94.5 Abnormal results of liver function studies (principal)
CPT/HCPCS: 36415; 80053; G0463

== ENCOUNTER → 2020-05-03 | Outpatient (CLI) | payer MEDICARE, MEDICAID ==
[2020-05-03 08:05] LABS: BASO # 0.1 10^3/uL (0.0-0.2); BASO % 1.2 % (0.0-1.0); EOS # 0.2 10^3/uL (0.0-0.5); EOS % 4.8 % (0.0-3.0); HEMATOCRIT 42.8 % (36.0-47.0); HEMOGLOBIN 13.7 g/dl (12.0-15.5); LYMPH # 0.8 10^3/uL (1.5-5.0); LYMPH % 16.3 % (24.0-44.0); MEAN CORPUSCULAR HEMOGLOBIN 27.8 pg (27.0-33.0); MONO # 0.6 10^3/uL (0.0-0.8); MONO % 11.9 % (2.0-8.0); NEUTROPHILS # 3.3 10^3/uL (1.5-8.5); NEUTROPHILS % 65.6 % (36.0-66.0); PLATELET COUNT, AUTOMATED 248 10^3/uL (150-450); RED BLOOD COUNT 4.92 10^6/uL (4.00-5.40)
[2020-05-03 08:38] LABS: ALBUMIN 3.6 GM/DL (3.2-5.2); ALT/SGPT 38 U/L (12-78); BILIRUBIN,TOTAL 0.5 MG/DL (0.2-1.0); BLOOD UREA NITROGEN 13 MG/DL (7-18); CALCIUM LEVEL 9.2 MG/DL (8.5-10.1); CARBON DIOXIDE LEVEL 29 MEQ/L (21-32); CHLORIDE LEVEL 105 MEQ/L (98-107); CREATININE FOR GFR 0.81 MG/DL (0.55-1.30); GLOMERULAR FILTRATION RATE > 60.0 (>60); GLUCOSE, FASTING 74 MG/DL (70-100); POTASSIUM SERUM 4.1 MEQ/L (3.5-5.1); SODIUM LEVEL 142 MEQ/L (136-145); TOTAL PROTEIN 6.8 GM/DL (6.4-8.2)
== END ==
LOC: M LAB 07:18
PROVIDERS: ATTEND Physician Assistant Medical
DX: Z51.81 Encounter for therapeutic drug level monitoring (principal); G40.89 Other seizures; R94.5 Abnormal results of liver function studies

== ENCOUNTER → 2020-05-31 | Outpatient (CLI) | payer MEDICARE, MEDICAID ==
[2020-05-31 08:59] LABS: BASO % 0.6 % (0.0-1.0); EOS # 0.2 10^3/uL (0.0-0.5); EOS % 3.4 % (0.0-3.0); HEMATOCRIT 40.9 % (36.0-47.0); HEMOGLOBIN 13.2 g/dl (12.0-15.5); LYMPH # 0.8 10^3/uL (1.5-5.0); LYMPH % 12.1 % (24.0-44.0); MEAN CORPUSCULAR HEMOGLOBIN 28.1 pg (27.0-33.0); MEAN CORPUSCULAR HGB CONC 32.3 g/dl (32.0-36.5); MONO # 0.6 10^3/uL (0.0-0.8); MONO % 9.2 % (2.0-8.0); NEUTROPHILS # 4.6 10^3/uL (1.5-8.5); NEUTROPHILS % 73.1 % (36.0-66.0); PLATELET COUNT, AUTOMATED 241 10^3/uL (150-450); WHITE BLOOD COUNT 6.2 10^3/uL (4.0-10.0)
[2020-05-31 09:26] LABS: ALBUMIN 3.1 GM/DL (3.2-5.2); ALT/SGPT 93 U/L (12-78); BILIRUBIN,TOTAL 0.4 MG/DL (0.2-1.0); BLOOD UREA NITROGEN 10 MG/DL (7-18); CARBON DIOXIDE LEVEL 31 MEQ/L (21-32); CHLORIDE LEVEL 107 MEQ/L (98-107); CREATININE FOR GFR 0.69 MG/DL (0.55-1.30); GLOMERULAR FILTRATION RATE > 60.0 (>60); GLUCOSE, FASTING 100 MG/DL (70-100); POTASSIUM SERUM 3.9 MEQ/L (3.5-5.1); SODIUM LEVEL 141 MEQ/L (136-145); TOTAL PROTEIN 6.6 GM/DL (6.4-8.2)
== END ==
LOC: M LAB 08:16
PROVIDERS: ATTEND Physician Assistant Medical
DX: R56.9 Unspecified convulsions (principal)

== ENCOUNTER → 2020-06-18 | Outpatient (CLI) | payer MEDICARE, MEDICAID | LOC: M LABSMTC 10:16 | PROVIDERS: ATTEND Anesthesiology | DX: Z01.818 Encounter for other preprocedural examination (principal); Z11.52 Encounter for screening for COVID-19 ==

== ENCOUNTER 2020-06-23 12:08 | Day surgery (SDC) | payer MEDICARE, MEDICAID ==
[~2020-06-23] VITALS: Ht 165.1 cm; Wt 87.7 kg
[~2020-06-23 12:08] MED LIST changes: +ACETAMINOPHEN 1000MG 100ML IV BTL (OFIRMEV) (J0131 PER 10MG) As Ordered ONE; +AZEL0.055 NARES; +BUSP10TA PO; +KETOROLAC 60MG 2ML VIAL As Ordered ONE; +LEVE500T5 PO; +LIDOCAINE 2% 100MG/5ML SDV (FOR ANES.) As Ordered ONE; +LR 1,000 ML IV ONE; +MIDAZOLAM INJ 2MG/2ML VIAL (J2250 PER 1MG) As Ordered ONE; +NS 1,000 ML IV ONE; +ONDANSETRON 4MG/2ML VIAL As Ordered ONE; +ROCURONIUM BROMIDE 50 MG/5 ML VIAL As Ordered ONE; +SUGAMMADEX SODIUM 500 MG/5 ML VIAL (BRIDION) As Ordered ONE; +dexameTHASONE 4 MG/ML 1ML VIAL (J1100 PER 1MG) As Ordered ONE; +fentaNYL 100 MCG/2 ML INJECTION (J3010) As Ordered ONE; +propofoL 200 MG/20 ML VIAL As Ordered ONE
[2020-06-23] MEDS ORDERED: ISOVUE-300 61% 50ML VIAL As Ordered ONE ×2 (13:12→13:13)
--- NOTE | 2020-06-23 15:29 | REP ---
INDICATION: ABDOMINAL PAIN. COMPARISON: Comparison study January 23, 2019.. TECHNIQUE: Ninety four views. 1 minutes and 1 seconds of fluoroscopy time is reported. FINDINGS: A sequence of 94 last image hold fluoroscopically obtained spot radiographs of the right upper quadrant document endoscopic cannulation, contrast injection, balloon catheter and stone basket manipulation of the common bile duct. Multiple filling defects are seen consistent with choledocholithiasis. Final images demonstrate a wall stent in place in the common bile duct. A distal CBD stricture is suspected. IMPRESSION: Procedural imaging. <Electronically signed by Ethan Copeland > 06/23/20 1522
[2020-06-23] MEDS ORDERED: HYDROMORPHONE HCL 0.5 MG/ 0.5 ML SYRINGE (J1170 PER 1) IV PRN (15:35)
[2020-06-23] MEDS ORDERED: fentaNYL 100 MCG/2 ML INJECTION (J3010) IV PRN (15:35)
[2020-06-23] MEDS ORDERED: ONDANSETRON 4MG/2ML VIAL IV PRN (15:35)
[2020-06-23] MEDS ORDERED: LR 1,000 ML IV SCH (15:35)
[2020-06-23] MEDS ORDERED: oxyCODONE 5MG TAB PO PRN (15:35)
--- NOTE | 2020-06-23 15:38 | ROOR ---
Patient Name: Odilia Delvalle Procedure Date: 06/23/2020 1:08 PM Date of : 1990 Age: 30 Room: [facility] Gender: Female Note Status: Finalized Procedure: ERCP Indications: Bile duct stone(s) Providers: Godfrey Dial MD Referring MD: Evangelina Groves-1 Maria [facility]isa Requesting Provider: Medicines: Monitored Anesthesia Care Complications: No immediate complications. Procedure: Pre-Anesthesia Assessment: - Prior to the procedure, a History and Physical was performed, and patient medications and allergies were reviewed. The patient is competent. The risks and benefits of the procedure and the sedation options and risks were discussed with the patient. All questions were answered and informed consent was obtained. Patient identification and proposed procedure were verified by the physician, the nurse and the anesthesiologist in the procedure room. Mental Status Examination: alert and oriented. Airway Examination: normal oropharyngeal airway and neck mobility. Respiratory Examination: clear to auscultation. CV Examination: normal. Prophylactic Antibiotics: The patient does not require prophylactic antibiotics. Prior Anticoagulants: The patient has taken no previous anticoagulant or antiplatelet agents. ASA Grade Assessment: II - A patient with mild systemic disease. After reviewing the risks and benefits, the patient was deemed in satisfactory condition to undergo the procedure. The anesthesia plan was to use monitored anesthesia care (MAC). Immediately prior to administration of medications, the patient was re-assessed for adequacy to receive sedatives. The heart rate, respiratory rate, oxygen saturations, blood pressure, adequacy of pulmonary ventilation, and response to care were monitored throughout the procedure. The physical status of the patient was re-assessed after the procedure. The Duodenoscope was introduced through the mouth, and advanced to the duodenum and used to inject contrast into the bile duct. The ERCP was accomplished without difficulty. The patient tolerated the procedure well. Findings: The media producer film was normal. The esophagus was successfully intubated under direct vision without detailed examination of the pharynx, larynx, and associated structures, and upper GI tract. The upper GI tract was grossly normal. One plastic stent originating in the biliary tree was emerging from the major papilla. The stent was visibly occluded. One stent was removed from the biliary tree using a scissors. A biliary sphincterotomy had been performed. The sphincterotomy appeared open. A 0.035 inch x 260 cm straight Hydra Jagwire was passed into the biliary tree. The short-nosed traction sphincterotome was passed over the guidewire and the bile duct was then deeply cannulated. Contrast was injected. I personally interpreted the bile duct images. Ductal flow of contrast was adequate. Image quality was adequate. Contrast extended to the entire biliary tree. The middle third of the main bile duct, upper third of the main bile duct, common hepatic duct, left main hepatic duct and right main hepatic duct were diffusely dilated, with a stone causing an obstruction. The largest diameter was 15 mm. The middle third of the main bile duct, upper third of the main bile duct, common hepatic duct, left main hepatic duct and right main hepatic duct contained multiple stones, the largest of which was 15 mm in diameter. The lower third of the main bile duct contained segmental stenoses 5 mm in length. Lithotripsy with the mechanical lithotripter was unsuccessful because the stone could not be trapped. The middle third of the main bile duct and upper third of the main bile duct contained multiple stones. The biliary tree was swept with a 15 mm balloon starting at the bifurcation. Sludge was swept from the duct. Three stones were removed. Many stones remained. One 10 mm by 6 cm covered metal stent was placed into the common bile duct. Bile flowed through the stent. The stent was in good position. Impression: - One visibly occluded stent from the biliary tree was seen in the major papilla. - Prior biliary sphincterotomy appeared open. 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 The strictures were secondary to previous stone(s) and benign appearing. - The upper third of the main bile duct, middle third of the main bile duct, left main hepatic duct, right main hepatic duct and common hepatic duct were dilated, with a stone causing an obstruction. - Choledocholithiasis was found. Partial removal was accomplished with balloon extraction; a stent was inserted. - One stent was removed from the biliary tree. - Lithotripsy was unsuccessful because the stone could not be trapped. - The biliary tree was swept. - One covered metal stent was placed into the common bile duct. Recommendation: - The patient will be observed post-procedure, until all discharge criteria are met. - Patient has a contact number available for emergencies. The signs and symptoms of potential delayed complications were discussed with the patient. Return to normal activities tomorrow. Written discharge instructions were provided to the patient. - Avoid aspirin and nonsteroidal anti-inflammatory medicines. - Clear liquid diet today, then advance as tolerated to high fiber diet. - Use Actigall (ursodiol) 300 mg PO BID for 4 weeks. - Repeat ERCP in 6 weeks to remove stent. - Return to GI clinic in [facility] (address [address], [address], [place] [address]) in 4 -- 6 weeks. Please call GI clinic @ [phone] for apppointment date and time. - Return to primary care physician. Procedure Code(s): --- Professional --- 36419, Endoscopic retrograde cholangiopancreatography (ERCP); with removal and exchange of stent(s), biliary or pancreatic duct, including pre- and post-dilation and guide wire passage, when performed, including sphincterotomy, when performed, each stent exchanged [id number], Endoscopic retrograde cholangiopancreatography (ERCP); with removal of calculi/debris from biliary/pancreatic duct(s) 40434, 26, Endoscopic catheterization of the biliary ductal system, radiological supervision and interpretation Diagnosis Code(s): --- Professional --- T85.590A, Other mechanical complication of bile duct prosthesis, initial encounter K80.51, Calculus of bile duct without cholangitis or cholecystitis with obstruction Z46.59, Encounter for fitting and adjustment of other gastrointestinal appliance and device CPT copyright 2019 [employer]. All rights reserved. The codes documented in this report are preliminary and upon industrial furnace fabricator review may be revised to meet current compliance requirements. Godfrey Dial MD Godfrey Dial MD 06/23/2020 3:38:27 PM Electronically signed by Godfrey Dial MD Number of Addenda: 0 Note Initiated On: 06/23/2020 1:08 PM Estimated Blood Loss: Estimated blood loss was minimal.
[2020-06-23] MEDS ORDERED: LACTATED RINGER'S 500 ML IV ONE (16:15)
[2020-06-23 16:30] VITALS: BP 121/73
== END 2020-06-23 16:55 | disposition home or self-care (01) ==
LOC: M SDC 12:08
PROVIDERS: ATTEND Internal Medicine Gastroenterology
DX: K80.51 Calculus of bile duct without cholangitis or cholecystitis with obstruction (principal); T85.590A Other mechanical complication of bile duct prosthesis, initial encounter; Y73.2 Prosthetic and other implants, materials and accessory gastroenterology and urology devices associated with adverse incidents; E78.5 Hyperlipidemia, unspecified; K21.9 Gastro-esophageal reflux disease without esophagitis; F31.9 Bipolar disorder, unspecified; F41.9 Anxiety disorder, unspecified; F84.5 Asperger's syndrome; R51.9 Headache, unspecified; R56.9 Unspecified convulsions; J30.1 Allergic rhinitis due to pollen; Z79.899 Other long term (current) drug therapy; Z88.2 Allergy status to sulfonamides
CPT/HCPCS: 43264; 43276; 74330; 81025; C1876; J0131; J1100; J1885; J2250; J2405; J3010; Q9967

== ENCOUNTER → 2020-06-29 | Outpatient (CLI) | payer MEDICARE, MEDICAID ==
[~2020-06-29] MED LIST changes: -ACETAMINOPHEN 1000MG 100ML IV BTL (OFIRMEV) (J0131 PER 10MG) As Ordered ONE; -KETOROLAC 60MG 2ML VIAL As Ordered ONE; -LIDOCAINE 2% 100MG/5ML SDV (FOR ANES.) As Ordered ONE; -LR 1,000 ML IV ONE; -MIDAZOLAM INJ 2MG/2ML VIAL (J2250 PER 1MG) As Ordered ONE; -NS 1,000 ML IV ONE; -ONDANSETRON 4MG/2ML VIAL As Ordered ONE; -ROCURONIUM BROMIDE 50 MG/5 ML VIAL As Ordered ONE; -SUGAMMADEX SODIUM 500 MG/5 ML VIAL (BRIDION) As Ordered ONE; -dexameTHASONE 4 MG/ML 1ML VIAL (J1100 PER 1MG) As Ordered ONE; -fentaNYL 100 MCG/2 ML INJECTION (J3010) As Ordered ONE; -propofoL 200 MG/20 ML VIAL As Ordered ONE
[2020-06-29 09:21] LABS: BASO # 0.1 10^3/uL (0.0-0.2); BASO % 0.7 % (0.0-1.0); EOS # 0.2 10^3/uL (0.0-0.5); EOS % 3.3 % (0.0-3.0); HEMATOCRIT 42.2 % (36.0-47.0); HEMOGLOBIN 13.6 g/dl (12.0-15.5); LYMPH # 0.7 10^3/uL (1.5-5.0); LYMPH % 9.3 % (24.0-44.0); MEAN CORPUSCULAR HEMOGLOBIN 28.1 pg (27.0-33.0); MEAN CORPUSCULAR HGB CONC 32.2 g/dl (32.0-36.5); MEAN CORPUSCULAR VOLUME 87.2 fl (80.0-96.0); MONO # 0.6 10^3/uL (0.0-0.8); MONO % 7.8 % (2.0-8.0); NEUTROPHILS # 5.7 10^3/uL (1.5-8.5); NEUTROPHILS % 78.1 % (36.0-66.0); PLATELET COUNT, AUTOMATED 278 10^3/uL (150-450); RED BLOOD COUNT 4.84 10^6/uL (4.00-5.40); WHITE BLOOD COUNT 7.3 10^3/uL (4.0-10.0)
[2020-06-29 09:45] LABS: ALBUMIN 3.5 GM/DL (3.2-5.2); ALT/SGPT 19 U/L (12-78); BILIRUBIN,TOTAL 0.4 MG/DL (0.2-1.0); BLOOD UREA NITROGEN 14 MG/DL (7-18); CALCIUM LEVEL 9.3 MG/DL (8.5-10.1); CARBON DIOXIDE LEVEL 28 MEQ/L (21-32); CHLORIDE LEVEL 107 MEQ/L (98-107); CREATININE FOR GFR 0.74 MG/DL (0.55-1.30); GLOMERULAR FILTRATION RATE > 60.0 (>60); GLUCOSE, FASTING 92 MG/DL (70-100); POTASSIUM SERUM 4.1 MEQ/L (3.5-5.1); SODIUM LEVEL 141 MEQ/L (136-145); TOTAL PROTEIN 7.4 GM/DL (6.4-8.2)
== END ==
LOC: M LAB 08:17
PROVIDERS: ATTEND Physician Assistant Medical
DX: R56.9 Unspecified convulsions (principal)

== ENCOUNTER → 2020-08-14 | Outpatient (CLI) | payer MEDICARE, MEDICAID | LOC: M LABSMTC 10:49 | PROVIDERS: ATTEND Anesthesiology | DX: Z01.818 Encounter for other preprocedural examination (principal); Z11.52 Encounter for screening for COVID-19 ==

== ENCOUNTER → 2020-08-18 | Outpatient (CLI) | payer MEDICARE, MEDICAID ==
[2020-08-18 09:44] LABS: BASO # 0.1 10^3/uL (0.0-0.2); BASO % 0.7 % (0.0-1.0); EOS # 0.2 10^3/uL (0.0-0.5); EOS % 2.7 % (0.0-3.0); HEMATOCRIT 44.1 % (36.0-47.0); HEMOGLOBIN 14.1 g/dl (12.0-15.5); LYMPH # 0.8 10^3/uL (1.5-5.0); LYMPH % 10.6 % (24.0-44.0); MEAN CORPUSCULAR VOLUME 84.3 fl (80.0-96.0); MONO # 0.6 10^3/uL (0.0-0.8); MONO % 7.7 % (2.0-8.0); NEUTROPHILS # 5.6 10^3/uL (1.5-8.5); NEUTROPHILS % 77.7 % (36.0-66.0); PLATELET COUNT, AUTOMATED 280 10^3/uL (150-450); RED BLOOD COUNT 5.23 10^6/uL (4.00-5.40); WHITE BLOOD COUNT 7.1 10^3/uL (4.0-10.0)
[2020-08-18 10:00] LABS: INR 0.93; PROTHROMBIN TIME 12.7 SECONDS (12.5-14.3)
[2020-08-18 10:01] LABS: PARTIAL THROMBOPLASTIN TIME 37.4 SECONDS (24.2-38.5)
[2020-08-18 10:12] LABS: ALBUMIN 3.8 GM/DL (3.2-5.2); ALT/SGPT 21 U/L (12-78); BILIRUBIN,DIRECT 0.2 MG/DL (0.0-0.2); BILIRUBIN,TOTAL 0.7 MG/DL (0.2-1.0); BLOOD UREA NITROGEN 12 MG/DL (7-18); CREATININE FOR GFR 0.77 MG/DL (0.55-1.30); GLOMERULAR FILTRATION RATE > 60.0 (>60); TOTAL PROTEIN 7.5 GM/DL (6.4-8.2)
== END ==
LOC: M LAB 08:54
PROVIDERS: ATTEND Internal Medicine Gastroenterology
DX: R94.5 Abnormal results of liver function studies (principal)

== ENCOUNTER → 2020-08-18 | Outpatient (CLI) | payer MEDICARE, MEDICAID ==
[2020-08-18 09:43] LABS: BASO # 0.1 10^3/uL (0.0-0.2); BASO % 0.8 % (0.0-1.0); EOS # 0.2 10^3/uL (0.0-0.5); EOS % 2.5 % (0.0-3.0); HEMATOCRIT 42.9 % (36.0-47.0); HEMOGLOBIN 13.6 g/dl (12.0-15.5); LYMPH # 0.7 10^3/uL (1.5-5.0); LYMPH % 10.1 % (24.0-44.0); MEAN CORPUSCULAR HEMOGLOBIN 26.6 pg (27.0-33.0); MEAN CORPUSCULAR HGB CONC 31.7 g/dl (32.0-36.5); MEAN CORPUSCULAR VOLUME 83.8 fl (80.0-96.0); MONO # 0.5 10^3/uL (0.0-0.8); MONO % 6.8 % (2.0-8.0); NEUTROPHILS # 5.6 10^3/uL (1.5-8.5); PLATELET COUNT, AUTOMATED 289 10^3/uL (150-450); RED BLOOD COUNT 5.12 10^6/uL (4.00-5.40); WHITE BLOOD COUNT 7.1 10^3/uL (4.0-10.0)
[2020-08-18 10:16] LABS: ALBUMIN 3.7 GM/DL (3.2-5.2); ALT/SGPT 22 U/L (12-78); BILIRUBIN,TOTAL 0.7 MG/DL (0.2-1.0); BLOOD UREA NITROGEN 11 MG/DL (7-18); CALCIUM LEVEL 9.7 MG/DL (8.5-10.1); CARBON DIOXIDE LEVEL 31 MEQ/L (21-32); CHLORIDE LEVEL 106 MEQ/L (98-107); CREATININE FOR GFR 0.78 MG/DL (0.55-1.30); GLOMERULAR FILTRATION RATE > 60.0 (>60); GLUCOSE, FASTING 72 MG/DL (70-100); POTASSIUM SERUM 4.8 MEQ/L (3.5-5.1); SODIUM LEVEL 141 MEQ/L (136-145); TOTAL PROTEIN 7.4 GM/DL (6.4-8.2)
[2020-08-22 16:08] LABS: LAMOTRIGINE (LAMICTAL) 13.1 ug/mL (2.0-20.0); LEVETIRACETAM (KEPPRA) 20.9 ug/mL (10.0-40.0)
== END ==
LOC: M LAB 08:49
PROVIDERS: ATTEND Physician Assistant Medical
DX: G40.909 Epilepsy, unspecified, not intractable, without status epilepticus (principal); R94.5 Abnormal results of liver function studies

== ENCOUNTER 2020-08-19 13:40 | Day surgery (SDC) | payer MEDICARE, MEDICAID ==
[~2020-08-19] VITALS: Ht 167.6 cm; Wt 84.8 kg
[~2020-08-19 13:40] MED LIST changes: +LIDOCAINE 1% MDV 20ML VIAL SQ PRN; +LR 1,000 ML IV ONE
[2020-08-19] MEDS ORDERED: fentaNYL 100 MCG/2 ML INJECTION (J3010) As Ordered ONE (15:02)
[2020-08-19] MEDS ORDERED: MIDAZOLAM INJ 2MG/2ML VIAL (J2250 PER 1MG) As Ordered ONE (15:02)
[2020-08-19] MEDS ORDERED: propofoL 200 MG/20 ML VIAL As Ordered ONE (15:02)
[2020-08-19] MEDS ORDERED: ROCURONIUM BROMIDE 50 MG/5 ML VIAL As Ordered ONE (15:02)
[2020-08-19] MEDS ORDERED: LIDOCAINE 2% 100MG/5ML SDV (FOR ANES.) As Ordered ONE (15:02)
[2020-08-19] MEDS ORDERED: ONDANSETRON 4MG/2ML VIAL As Ordered ONE ×2 (15:02→18:24)
[2020-08-19] MEDS ORDERED: dexameTHASONE 4 MG/ML 1ML VIAL (J1100 PER 1MG) As Ordered ONE (15:02)
[2020-08-19] MEDS: ISOVUE-300 61% 50ML VIAL As Ordered ONE ×2 (16:10→16:15)
[2020-08-19] MEDS ORDERED: SUGAMMADEX SODIUM 500 MG/5 ML VIAL (BRIDION) As Ordered ONE (16:23)
--- NOTE | 2020-08-19 17:57 | REP ---
INDICATION: CHOLEDOCHOLITHIASIS. COMPARISON: None. TECHNIQUE: Two hundred sixty-seven views. 2 minutes and 35 seconds of fluoroscopy time is reported. FINDINGS: A sequence of 267 fluoroscopically obtained spot radiographs of the right upper quadrant document endoscopic cannulation and contrast injection of the common bile duct with balloon catheter and stone basket catheter manipulation of the common bile duct. A large filling defect consistent with a choledocholith is seen on Saturday many of the images. A CBD stent is noted on the final image. IMPRESSION: Procedural imaging. <Electronically signed by Ethan Copeland > 08/19/20 [id number]
--- NOTE | 2020-08-19 18:08 | ROOR ---
Patient Name: Odilia Delvalle Procedure Date: 08/19/2020 3:31 PM Date of : 1990 Age: 30 Room: [facility] Gender: Female Note Status: Finalized Procedure: ERCP Indications: Common bile duct stone(s), Common hepatic duct stone(s), Intrahepatic duct stone(s) Providers: Godfrey Dial MD Referring MD: Vic Ohara MD, [place] [facility] Requesting Provider: Medicines: General Anesthesia Complications: No immediate complications. Procedure: Pre-Anesthesia Assessment: - Prior to the procedure, a History and Physical was performed, and patient medications and allergies were reviewed. The patient is competent. The risks and benefits of the procedure and the sedation options and risks were discussed with the patient. All questions were answered and informed consent was obtained. Patient identification and proposed procedure were verified by the physician, the nurse and the anesthesiologist in the procedure room. Mental Status Examination: alert and oriented. Airway Examination: normal oropharyngeal airway and neck mobility. Respiratory Examination: clear to auscultation. CV Examination: normal. Prophylactic Antibiotics: The patient does not require prophylactic antibiotics. Prior Anticoagulants: The patient has taken no previous anticoagulant or antiplatelet agents. ASA Grade Assessment: II - A patient with mild systemic disease. After reviewing the risks and benefits, the patient was deemed in satisfactory condition to undergo the procedure. The anesthesia plan was to use monitored anesthesia care (MAC). Immediately prior to administration of medications, the patient was re-assessed for adequacy to receive sedatives. The heart rate, respiratory rate, oxygen saturations, blood pressure, adequacy of pulmonary ventilation, and response to care were monitored throughout the procedure. The physical status of the patient was re-assessed after the procedure. The Duodenoscope was introduced through the mouth, and advanced to the duodenum and used to inject contrast into the bile duct. The ERCP was accomplished without difficulty. The patient tolerated the procedure well. Findings: A biliary stent was visible on the curriculum coach film. The esophagus was successfully intubated under direct vision without detailed examination of the pharynx, larynx, and associated structures, and upper GI tract. The upper GI tract was grossly normal. One covered metal stent originating in the biliary tree was emerging from the major papilla. The stent was visibly patent. A biliary sphincterotomy had been performed. The sphincterotomy appeared open. One stent was removed from the biliary tree using a rat-toothed forceps. A 0.035 inch x 260 cm straight Hydra Jagwire was passed into the biliary tree. The short-nosed traction sphincterotome was passed over the guidewire and the bile duct was then deeply cannulated. Contrast was injected. I personally interpreted the bile duct images. There was appropriate flow of contrast through the ducts. Image quality was adequate. Contrast extended to the entire biliary tree. The main bile duct, common hepatic duct, left main hepatic duct and right main hepatic duct contained filling defect(s) thought to be a stone and sludge. The biliary tree was swept with a 12 mm balloon starting at the bifurcation. Many stones were removed. Few debris and one stones remained. Cells for cytology were obtained by brushing in the lower third of the main bile duct. The lower third of the main bile duct contained a single segmental stenosis. One 10 Fr by 7 cm plastic stent with a single external flap and a single internal flap was placed into the common bile duct. Bile flowed through the stent. The stent was in good position. Occlusion cholangiogram at the end of the procedure did not show any residual filling defects. Pancreatic duct was neither cannulated nor opacified. Impression: - One visibly patent stent from the biliary tree was seen in the major papilla. - Prior biliary sphincterotomy appeared open. - A filling defect consistent with a stone and sludge was seen on the cholangiogram. - A single segmental biliary stricture was found in the lower third of the main bile duct. The stricture was secondary to previous stone(s) and fibrotic. - Choledocholithiasis was found. [Removal]. - One stent was removed from the biliary tree. - The biliary tree was swept. - Cells for cytology obtained in the lower third of the main duct. - One plastic stent was placed into the common bile duct. Recommendation: - Patient has a contact number available for emergencies. The signs and symptoms of potential delayed complications were discussed with the patient. Return to normal activities tomorrow. Written discharge instructions were provided to the patient. - The patient will be observed post-procedure, until all discharge criteria are met. - Avoid aspirin and nonsteroidal anti-inflammatory medicines. - Clear liquid diet for 1 day, then advance as tolerated to high fiber diet. - Continue present medications. - Await cytology results. - Return to GI clinic in [facility] (address [address], [address], [place] [address]) in 4 -- 6 weeks. Please call GI clinic @ [phone] for apppointment date and time. - Check liver enzymes (AST, ALT, alkaline phosphatase, bilirubin) in 4 weeks. - Return to primary care physician. Procedure Code(s): --- Professional --- 75433, Endoscopic retrograde cholangiopancreatography (ERCP); with removal and exchange of stent(s), biliary or pancreatic duct, including pre- and post-dilation and guide wire passage, when performed, including sphincterotomy, when performed, each stent exchanged [id number], Endoscopic retrograde cholangiopancreatography (ERCP); with removal of calculi/debris from biliary/pancreatic duct(s) 79280, 26, Endoscopic catheterization of the biliary ductal system, radiological supervision and interpretation Diagnosis Code(s): --- Professional --- Z96.89, Presence of other specified functional implants K80.51, Calculus of bile duct without cholangitis or cholecystitis with obstruction Z46.59, Encounter for fitting and adjustment of other gastrointestinal appliance and device R93.2, Abnormal findings on diagnostic imaging of liver and biliary tract CPT copyright 2019 [employer]. All rights reserved. The codes documented in this report are preliminary and upon grades 7 and 8 teacher review may be revised to meet current compliance requirements. Godfrey Dial MD Godfrey Dial MD 08/19/2020 6:07:47 PM Electronically signed by Godfrey Dial MD Number of Addenda: 0 Note Initiated On: 08/19/2020 3:31 PM Estimated Blood Loss: Estimated blood loss was minimal.
[2020-08-19] MEDS ORDERED: fentaNYL 100 MCG/2 ML INJECTION (J3010) IV PRN (19:05)
[2020-08-19] MEDS ORDERED: ONDANSETRON 4MG/2ML VIAL IV PRN (19:05)
[2020-08-19] MEDS ORDERED: oxyCODONE 5MG TAB PO PRN (19:05)
[2020-08-19] MEDS ORDERED: LR 1,000 ML IV SCH (19:05)
[2020-08-19] MEDS ORDERED: HYDROMORPHONE HCL 0.5 MG/ 0.5 ML SYRINGE (J1170 PER 1) IV PRN (19:05)
[2020-08-19 19:12] VITALS: BP 116/76
== END 2020-08-19 19:54 | disposition home or self-care (01) ==
LOC: M SDC 13:40
PROVIDERS: ATTEND Internal Medicine Gastroenterology
DX: K80.51 Calculus of bile duct without cholangitis or cholecystitis with obstruction (principal); T85.590A Other mechanical complication of bile duct prosthesis, initial encounter; Y73.2 Prosthetic and other implants, materials and accessory gastroenterology and urology devices associated with adverse incidents; R93.2 Abnormal findings on diagnostic imaging of liver and biliary tract; Z96.89 Presence of other specified functional implants; K21.9 Gastro-esophageal reflux disease without esophagitis; F41.9 Anxiety disorder, unspecified; F31.9 Bipolar disorder, unspecified; R51.9 Headache, unspecified; F84.5 Asperger's syndrome; R56.9 Unspecified convulsions; R59.0 Localized enlarged lymph nodes; J30.1 Allergic rhinitis due to pollen; Z79.899 Other long term (current) drug therapy
CPT/HCPCS: 43264; 43276; 74330; 81025; 88104; C2625; J1100; J2250; J2405; J3010; Q9967

== ENCOUNTER → 2020-09-06 | Outpatient (REF) | payer MEDICARE, MEDICAID ==
[~2020-09-06] MED LIST changes: -LIDOCAINE 1% MDV 20ML VIAL SQ PRN; -LR 1,000 ML IV ONE
== END ==
LOC: M SFHCWAGY 13:32
PROVIDERS: ATTEND Nurse Practitioner Women's Health
DX: Z12.4 Encounter for screening for malignant neoplasm of cervix (principal)
CPT/HCPCS: 87624; G0101; G0123

== ENCOUNTER → 2020-09-19 | Outpatient (CLI) | payer MEDICARE, MEDICAID ==
[2020-09-19 10:30] LABS: BASO % 0.8 % (0.0-1.0); EOS # 0.2 10^3/uL (0.0-0.5); EOS % 3.3 % (0.0-3.0); HEMATOCRIT 41.2 % (36.0-47.0); HEMOGLOBIN 13.1 g/dl (12.0-15.5); LYMPH # 0.7 10^3/uL (1.5-5.0); LYMPH % 12.9 % (24.0-44.0); MEAN CORPUSCULAR HEMOGLOBIN 26.8 pg (27.0-33.0); MEAN CORPUSCULAR HGB CONC 31.8 g/dl (32.0-36.5); MEAN CORPUSCULAR VOLUME 84.4 fl (80.0-96.0); MONO # 0.5 10^3/uL (0.0-0.8); MONO % 8.7 % (2.0-8.0); NEUTROPHILS # 3.8 10^3/uL (1.5-8.5); NEUTROPHILS % 73.7 % (36.0-66.0); PLATELET COUNT, AUTOMATED 248 10^3/uL (150-450); RED BLOOD COUNT 4.88 10^6/uL (4.00-5.40); WHITE BLOOD COUNT 5.2 10^3/uL (4.0-10.0)
[2020-09-19 11:15] LABS: ALBUMIN 3.5 GM/DL (3.2-5.2); BILIRUBIN,DIRECT 0.2 MG/DL (0.0-0.2); BILIRUBIN,TOTAL 0.6 MG/DL (0.2-1.0); TOTAL PROTEIN 6.8 GM/DL (6.4-8.2)
== END ==
LOC: M WUC 08:26
PROVIDERS: ATTEND Internal Medicine Gastroenterology
DX: K80.71 Calculus of gallbladder and bile duct without cholecystitis with obstruction (principal)

== ENCOUNTER → 2020-11-08 | Outpatient (CLI) | payer MEDICARE, MEDICAID ==
[2020-11-08 13:33] LABS: BASO # 0.1 10^3/uL (0.0-0.2); BASO % 0.6 % (0.0-1.0); EOS # 0.2 10^3/uL (0.0-0.5); EOS % 1.8 % (0.0-3.0); HEMATOCRIT 43.1 % (36.0-47.0); HEMOGLOBIN 13.7 g/dl (12.0-15.5); LYMPH % 12.4 % (24.0-44.0); MEAN CORPUSCULAR HEMOGLOBIN 26.9 pg (27.0-33.0); MEAN CORPUSCULAR HGB CONC 31.8 g/dl (32.0-36.5); MEAN CORPUSCULAR VOLUME 84.7 fl (80.0-96.0); MONO # 0.6 10^3/uL (0.0-0.8); MONO % 7.8 % (2.0-8.0); NEUTROPHILS # 6.3 10^3/uL (1.5-8.5); NEUTROPHILS % 76.8 % (36.0-66.0); PLATELET COUNT, AUTOMATED 332 10^3/uL (150-450); RED BLOOD COUNT 5.09 10^6/uL (4.00-5.40); WHITE BLOOD COUNT 8.3 10^3/uL (4.0-10.0)
[2020-11-08 14:08] LABS: ALBUMIN 3.8 GM/DL (3.2-5.2); ALT/SGPT 26 U/L (12-78); BILIRUBIN,TOTAL 0.4 MG/DL (0.2-1.0); BLOOD UREA NITROGEN 13 MG/DL (7-18); CALCIUM LEVEL 9.7 MG/DL (8.5-10.1); CARBON DIOXIDE LEVEL 28 MEQ/L (21-32); CHLORIDE LEVEL 106 MEQ/L (98-107); GLOMERULAR FILTRATION RATE > 60.0 (>60); GLUCOSE, FASTING 69 MG/DL (70-100); SODIUM LEVEL 139 MEQ/L (136-145); TOTAL PROTEIN 7.3 GM/DL (6.4-8.2)
[2020-11-10 17:07] LABS: LAMOTRIGINE (LAMICTAL) 12.1 ug/mL (2.0-20.0); LEVETIRACETAM (KEPPRA) 12.6 ug/mL (10.0-40.0)
== END ==
LOC: M LAB 11:10
PROVIDERS: ATTEND Physician Assistant Medical
DX: R56.9 Unspecified convulsions (principal); R94.5 Abnormal results of liver function studies; K80.51 Calculus of bile duct without cholangitis or cholecystitis with obstruction; Z51.81 Encounter for therapeutic drug level monitoring; Z79.899 Other long term (current) drug therapy

== ENCOUNTER → 2020-11-08 | Outpatient (CLI) | payer MEDICARE, MEDICAID ==
--- NOTE | 2020-11-08 12:59 | REP ---
INDICATION: CALC OF BILE DUCT W/O CHOLANGITIS OR CHOLECYST W OBST/LABS 1. COMPARISON: Comparison ERCP radiographs August 19, 2020. TECHNIQUE: Four views of the abdomen including supine and upright views. FINDINGS: Bowel gas pattern is unremarkable. There is air and stool in a nondistended colon. A common bile duct stent is noted in the right upper quadrant with a surgical clip adjacent to it. No pathologic calcification, mass, or organomegaly is seen. IMPRESSION: Biliary stent in the right upper quadrant. Normal bowel gas pattern. Otherwise negative. <Electronically signed by Ethan Copeland > 11/08/20 [id number]
== END ==
LOC: M RAD 11:15
PROVIDERS: ATTEND Internal Medicine Gastroenterology
DX: K80.51 Calculus of bile duct without cholangitis or cholecystitis with obstruction (principal)

== ENCOUNTER → 2020-11-15 | Outpatient (CLI) | payer MEDICARE, MEDICAID ==
--- NOTE | 2020-11-15 10:12 | REP ---
INDICATION: SCARCODOSIS ABN FINDING OF LUNG FIELD. COMPARISON: Comparison chest CT study January 14, 2019. TECHNIQUE: Helical scanning is acquired. 3 mm axial images are generated. Coronal and sagittal MPR and coronal MIP images are generated. FINDINGS: Digital preliminary apparatus lineman radiograph is unremarkable. No infiltrate is seen in the lung molina. The previously noted 4 mm left lower lobe nodule is again seen unchanged from the comparison CT study of January 14, 2019. This is displayed on page 51 of 95 and series 201 of today's study. The previously noted left upper lobe nodule is no longer apparent. There is a new 5 mm pulmonary nodule in the right lung apex displayed on page 14 of 95 series 201. No other new pulmonary nodule is seen. The previously noted hilar and mediastinal adenopathy are much improved and appear to have resolved on this noncontrast CT study. No new adenopathy is appreciated. No extra thoracic mass or adenopathy is seen. In the upper abdomen, there is an accessory splenule again noted. The gallbladder is surgically absent. Normal adrenal glands are seen. No acute bony abnormality is observed. IMPRESSION: Previously noted hilar and mediastinal adenopathy appear to have resolved. 1 of the previously noted pulmonary nodules, that in the left upper lobe is resolved. There is a new nodule in the right lung apex and a stable 5 mm nodule in the left lower lobe. <Electronically signed by Ethan Copeland > 11/15/20 [id number]
== END ==
LOC: M RAD 09:21
PROVIDERS: ATTEND Internal Medicine Pulmonary Disease
DX: R91.8 Other nonspecific abnormal finding of lung field (principal); D86.1 Sarcoidosis of lymph nodes

== ENCOUNTER 2020-12-01 02:49 | Inpatient (IN) | payer MEDICARE, MEDICAID ==
[~2020-12-01] VITALS: Ht 198.1 cm; Wt 84.0 kg
[2020-12-01] MEDS ORDERED: NS 1,000 ML IV ONE (04:50)
[2020-12-01 05:31] LABS: BASO # 0.1 10^3/uL (0.0-0.2); BASO % 0.3 % (0.0-1.0); EOS % 0.1 % (0.0-3.0); HEMATOCRIT 41.9 % (36.0-47.0); LYMPH # 0.4 10^3/uL (1.5-5.0); LYMPH % 2.9 % (24.0-44.0); MEAN CORPUSCULAR HEMOGLOBIN 27.2 pg (27.0-33.0); MEAN CORPUSCULAR HGB CONC 33.4 g/dl (32.0-36.5); MEAN CORPUSCULAR VOLUME 81.5 fl (80.0-96.0); MONO # 0.9 10^3/uL (0.0-0.8); MONO % 5.9 % (2.0-8.0); NEUTROPHILS # 13.5 10^3/uL (1.5-8.5); NEUTROPHILS % 90.3 % (36.0-66.0); PLATELET COUNT, AUTOMATED 255 10^3/uL (150-450); RED BLOOD COUNT 5.14 10^6/uL (4.00-5.40)
[2020-12-01] MEDS ORDERED: GI COCKTAIL 50ML BTL(HYOSCYAMINE/MAALOX/LIDOCAINE VISCOUS)(1:3:1) PO ONE (07:10)
[2020-12-01] MEDS ORDERED: KETOROLAC 30 MG/ML 1ML VIAL IV ONE (07:10)
--- NOTE | 2020-12-01 08:07 | REP ---
INDICATION: constipation, SOB, chest pain. COMPARISON: Comparison chest x-ray January 14, 2019. TECHNIQUE: Two views.. FINDINGS: The lungs are well inflated and free of infiltrate. The pleural angles are sharp. The heart size is normal. Pulmonary vasculature is not increased. No significant bony abnormality is seen. EKG monitoring electrodes are visible. There is a biliary stent visible in the right upper quadrant of the abdomen. IMPRESSION: No active cardiopulmonary disease. Biliary stent right upper quadrant. Otherwise negative chest <Electronically signed by Ethan Copeland > 12/01/20 [id number]
--- NOTE | 2020-12-01 08:15 | REP ---
INDICATION: constipation, SOB, chest pain. COMPARISON: Comparison study November 08, 2020. TECHNIQUE: KUB: Single view. FINDINGS: Bowel gas pattern is normal. There is a right upper quadrant the common bile duct stent in position as before. Flank stripes are intact. Psoas margins appear to be symmetric. No acute bony abnormality is observed. No mass or organomegaly seen. No pathologic calcification. IMPRESSION: Right upper quadrant biliary stent in place. Normal bowel gas pattern. <Electronically signed by Ethan Copeland > 12/01/20 [id number]
[2020-12-01 08:52] LABS: ALBUMIN 3.1 GM/DL (3.2-5.2); ALT/SGPT 44 U/L (12-78); BILIRUBIN,DIRECT 0.6 MG/DL (0.0-0.2); BILIRUBIN,TOTAL 1.2 MG/DL (0.2-1.0); BLOOD UREA NITROGEN 10 MG/DL (7-18); CALCIUM LEVEL 8.7 MG/DL (8.5-10.1); CARBON DIOXIDE LEVEL 25 MEQ/L (21-32); CHLORIDE LEVEL 109 MEQ/L (98-107); CREATININE FOR GFR 0.68 MG/DL (0.55-1.30); GLOMERULAR FILTRATION RATE > 60.0 (>60); GLUCOSE, FASTING 81 MG/DL (70-100); LIPASE 115 U/L (73-393); POTASSIUM SERUM 3.7 MEQ/L (3.5-5.1); SODIUM LEVEL 140 MEQ/L (136-145); TOTAL PROTEIN 6.3 GM/DL (6.4-8.2)
[2020-12-01] MEDS: busPIRone 10 MG TAB PO SCH ×2 (09:00→20:53)
[2020-12-01] MEDS: levETIRAcetam 250MG TABLET (KEPPRA) PO SCH ×2 (09:00→20:53)
[2020-12-01] MEDS: ARIPiprazole 10 MG TAB PO SCH ×2 (09:00→20:53)
[2020-12-01] MEDS: lamoTRIgine 100MG TAB PO SCH ×2 (09:00→20:54)
[2020-12-01] MEDS ORDERED: ISOVUE-370 76% 100ML VIAL As Ordered ONE (10:00)
--- NOTE | 2020-12-01 10:46 | REP ---
INDICATION: NV, epigastric pain, elev WBC COMPARISON: CT 01/21/2019. TECHNIQUE: CT Scan of the abdomen and pelvis was performed with intravenous administration of 100 cc of Isovue 370, without oral contrast. Sagittal and coronal reconstruction images are performed. FINDINGS: Lung bases: Unremarkable. Liver: Liver is markedly enlarged the length of 25.4 cm. Gallbladder: Prior cholecystectomy. A common bile duct stent is visualized, the proximal end is within the duct, the distal end is within the duodenum. Within the common hepatic duct and common bile duct proximal to the stent, 2 large stones are seen measuring 1.9 and 1.8 cm. There is dilatation of the common hepatic duct and common bile duct up to 20 mm. There is moderate diffuse intrahepatic biliary dilatation. Spleen: Normal. Adrenals: Normal. Pancreas: Normal. There is no pancreatic duct dilatation. Kidneys: Normal. Small and large bowel: There is possible thickening of the pylorus and proximal duodenum, with possible gastritis/duodenitis. Free fluid: None. Abdominal aorta: No aneurysm or dissection. Adenopathy: There is a mildly enlarged portal lymph node 1.2 cm in short axis. There are multiple scattered subcentimeter lymph nodes in the para-aortic region and mesentery. Appendix: Not inflamed. Osseous structures: Unremarkable. Pelvis: No mass. IMPRESSION: Common bile duct stent in place with distal end in the duodenum. There are 2 calculi in the common hepatic duct/common bile duct proximal to the stent, measuring 1.9 and 1.8 cm. There is dilatation of the common hepatic duct and common bile duct up to 20 mm. There is moderate diffuse intrahepatic biliary dilatation. Marked hepatomegaly. Possible thickening of the pylorus and proximal duodenum, possible gastritis/duodenitis. <Electronically signed by Trevon Henson > 12/01/20 [id number]
--- NOTE | 2020-12-01 10:49 | REP ---
INDICATION: epigastric pain, elev WBC, NV, fever. COMPARISON: Comparison sonography April 13, 2020. Comparison is made with today's CT study. TECHNIQUE: Right upper quadrant sonography. FINDINGS: Scanning through the right upper quadrant the abdomen demonstrates intrahepatic biliary ductal dilation. The common bile duct measures 11.5 cm in diameter and is moderately dilated as well. Radiographs and CT show a common bile duct stent. There are echogenic foci within the common bile duct consistent with choledocholithiasis as seen on CT and prior sonography. No abnormality is noted in the pancreas. There is no visible ascites. Right kidney measures 12.1 x 5.5 x 4.6 cm. No hydronephrosis seen. IMPRESSION: Choledocholithiasis with common bile duct dilation and intrahepatic bile duct dilation. This includes a common bile duct stone measuring up to 1.8 cm in diameter. CBD is 1.5 cm. <Electronically signed by Ethan Copeland > 12/01/20 [id number]
[2020-12-01] MEDS ORDERED: PIPERACILLIN/TAZOBACTAM SOD 3.375 GM in D5W MINI-BAG PLUS 50 ML IV ONE (11:40)
[2020-12-01] MEDS ORDERED: SYST1SOL4 OU (11:55)
[2020-12-01] MEDS ORDERED: D32000TA2 PO (12:00)
[2020-12-01] MEDS ORDERED: MIRE1IUD IU (12:06)
[2020-12-01] MEDS ORDERED: HOME MED LIST COMPLETE! XX SCH (12:10)
[2020-12-01] MEDS ORDERED: ACETAMINOPHEN TAB 650MG DOSE (2X325MG) PO PRN (12:55)
--- NOTE | 2020-12-01 13:23 | HPEPDOC ---
[facility] Medical History & Physical Date of Admission Dec 01, 2020 Date of Service: Dec 01, 2020 Primary Care Physician: ELOY ANGELA D.O. Attending Physician: RILEY BOOTH DO History and Physical CHIEF COMPLAINT: Abdominal pain HISTORY OF PRESENT ILLNESS: Patient is a 30-year-old female who presented to the hospital with right upper quadrant abdominal pain and lower chest pain. Patient states that the pain started last night. Patient stated that she felt warm but the machine to take her temperature was broken so she was unable to take a temperature. Patient has a history of gallstones and had a cholecystectomy. Patient's had to have multiple biliary stents due to choledocholithiasis causing obstruction. Patient complains of a sharp pain in her right upper quadrant. Patient also complains of an achy pain in her left lower quadrant and she has been unable to have a bowel movement for a few days. Patient also points to her lower chest area where she has the sharp pain. Patient has not had anything to eat or drink since 5 PM yesterday. Patient is otherwise feeling well. PAST MEDICAL HISTORY: 1. Depression. 2. Anxiety. 3. Seasonal allergies. 4. Seizures 5. Dysuria 6. Bipolar disorder 7. Constipation 8. Hypertriglyceridemia 9. Sarcoidosis PAST SURGICAL HISTORY: 1. Stent placement bile duct. 2. Cholecystectomy 05/12/2019. 3. Laparoscopic left nephrectomy on 05/25/2019. SOCIAL HISTORY: Patient lives at [facility]. Patient denies smoking cigarettes, drinking alcohol, or using illicit drug use. FAMILY HISTORY: Patient's father is alive with hypertension. Patient's mother is alive with diabetes ALLERGIES: Please see below. REVIEW OF SYSTEMS: General: Patient reports subjective fevers HEENT: Patient reports mild headaches Cardiovascular: Patient reports lower chest pain Respiratory: Patient denies shortness of breath, cough GI: Patient reports abdominal pain as above. Patient denies nausea, vomiting, diarrhea : Patient denies increased frequency or pain with urination Extremities: Patient denies swelling or pain in extremities Neurological: Patient denies numbness or tingling in legs Skin: Patient denies any new rashes or lesions. Hematologic: Patient denies any easy bruising. Lymphatic: Patient denies any lumps lumps or bumps in neck, axilla, or groin HOME MEDICATIONS: Please see below. PHYSICAL EXAMINATION: VITAL SIGNS: Temperature 98.2, pulse 80, respiratory rate 20, blood pressure 101/67, pulse oximetry 97% on room air. General: Alert and oriented female patient was sitting up in the stretcher when I walked in. Patient not appear to be in any acute distress. HEENT: Normocephalic, atraumatic, moist mucous membranes. Neck: No lymphadenopathy or thyromegaly Cardiac: Regular rate and rhythm, no murmurs, normal S1, normal S2 Pulm: Clear to auscultation bilaterally. No wheezes, rhonchi, rales Abd: Nondistended, tenderness to palpation of the right upper quadrant and left lower quadrant, no rebound tenderness, normal bowel sounds Ext: No edema bilateral lower extremities Neuro: Patient was able to move all 4 extremities on command and reported equal sensation light touch in all 4 extremities. Skin: Skin of the head, neck, upper and lower extremities was examined did not show any evidence of rash or wounds. LABORATORY DATA: See below. IMAGING: Abdominal x-ray performed on 12/01/2020 is reported to show right upper quadrant biliary stent placed. Normal gas pattern. Chest x-ray performed on 12/01/2020 is reported to show no active cardiopulmonary disease. Biliary stent right upper quadrant. Otherwise negative chest. Abdominal ultrasound performed on 12/01/2020 is reported to show choledoc holithiasis with common bile duct dilatation and intrahepatic bile duct dilatation. This includes a common bile duct stone measuring up to 1.8 cm in diameter. Common bile duct is 1.[address] of the abdomen and pelvis with IV contrast performed on is reported to show common bile duct stent in place distal end of the duodenum. There are 2 calculi in the common hepatic duct/common bile duct proximal to the stent measuring 1.9 1.8 cm. There is dilatation of the common hepatic duct and common bile duct up to 20 mm. There is moderate diffuse intrahepatic biliary dilatation. Marked hepatomegaly. Possible thickening of the pylorus and proximal duodenum. Possible gastritis/duodenitis MICROBIOLOGY: Please see below. ASSESSMENT: 30-year-old female presented to the hospital with right upper quadrant abdominal pain was diagnosed with choledocholithiasis with biliary obstruction. . PLAN: 1. Choledocholithiasis with biliary obstruction. I spoke with Dr. Garza of GI we will set the patient up for ERCP. Patient has a history of choledocholithiasis causing biliary obstruction does have a biliary stent in place. The stent will need to be replaced. Patient's last oral intake was at 5 PM yesterday, 11/30/2020. I have made the patient n.p.o. We will continue with IV Zosyn at this time. Patient's bilirubin is mildly elevated and we will continue to monitor this. 2. Hyperbilirubinemia. This is mildly elevated 1.2. I believe this is secondary to the obstruction caused by the choledocholithiasis. This should be resolved after ERCP. We will continue to monitor. 3. Seizure disorder. We will continue patient's medications. 4. Depression anxiety. Continue patient's home medications. 5. DVT prophylaxis: Teds and sequentials 6. CODE STATUS: Full code. Disposition: Patient be admitted for observation and if liver enzymes trending down tomorrow after ERCP, patient be discharged home Vital Signs Vital Signs Date Time Temp Pulse Resp B/P (MAP) Pulse Ox O2 Delivery O2 Flow Rate FiO2 12/01/20 11:34 80 97 12/01/20 11:33 98.2 101/67 (78) Room Air 12/01/20 03:09 20 Laboratory Data Labs 24H Laboratory Tests 2 12/01/20 05:18: Immature Granulocyte % (Auto) 0.5, Neutrophils (%) (Auto) 90.3H, Lymphocytes (%) (Auto) 2.9L, Monocytes (%) (Auto) 5.9, Eosinophils (%) (Auto) 0.1, Basophils (%) (Auto) 0.3, Neutrophils # (Auto) 13.5H, Lymphocytes # (Auto) 0.4L, Monocytes # (Auto) 0.9H, Eosinophils # (Auto) 0.0, Basophils # (Auto) 0.1, Nucleated Red Blood Cells % (auto) 0.0, Lactic Acid Level 0.8 12/01/20 08:13: D-Dimer, Quantitative 298.22, Anion Gap 6L, Glomerular Filtration Rate > 60.0, Calcium Level 8.7, Total Bilirubin 1.2H, Direct Bilirubin 0.6H, Aspartate Amino Transf (AST/SGOT) 27, Alanine Aminotransferase (ALT/SGPT) 44, Alkaline Phosphatase 369H, Total Protein 6.3L, Albumin 3.1L, Albumin/Globulin Ratio 1.0L, Lipase 115 12/01/20 11:40: Urine Color YELLOW, Urine Appearance CLEAR, Urine pH 6.0, Urine Specific [place] 1.041, Urine Protein NEGATIVE, Urine Glucose (UA) NEGATIVE, Urine Ketones NEGATIVE, Urine Blood 1+H, Urine Nitrite NEGATIVE, Urine Bilirubin NEGATIVE, Urine Urobilinogen 2.0H, Urine Leukocyte Esterase NEGATIVE, Urine WBC (Auto) 0, Urine RBC (Auto) 1, Urine Hyaline Casts (Auto) 0, Urine Bacteria (Auto) NEGATIVE, Urine Squamous Epithelial Cells 1, Urine Sperm (Auto) CBC/BMP Laboratory Tests 12/01/20 05:18 12/01/20 08:13 Microbiology Microbiology 12/01/20 Respiratory Virus Panel (PCR) (CRISTINA) - Final, Complete Home Medications Scheduled Aripiprazole (Abilify) 10 Mg Tablet, 10 MG PO BID Azelastine HCl (Azelastine HCl) 0.15% [place].pump, 2 SPRAY NARES QHS Buspirone HCl (Buspirone HCl) 10 Mg Tablet, 10 MG PO BID Cholecalciferol (Vitamin D3) (Vitamin D3) 50 Mcg Tablet, 50 MCG PO DAILY Ethinyl Estradiol/Drospirenone (Shakila 3 mg-0.02 mg Tablet) 1 Tab Tab, 1 TAB PO DAILY Hydroxyzine HCl (Hydroxyzine HCl) 50 Mg Tablet, 50 MG PO TID Lamotrigine (Lamotrigine) 200 Mg Tab, 400 MG PO BID Loratadine (Loratadine) 10 Mg Tab, 10 MG PO QHS Propylene Glycol/Peg 400/Pf (Systane 0.3-0.4% Eye Drop) 1 Each Droperette, 1 DROP OU QID Venlafaxine HCl (Effexor Xr) 37.5 Mg Cap.er.24h, 37.5 MG PO DAILY WITH 75MG CAP Venlafaxine HCl (Effexor Xr) 75 Mg Cap.er.24h, 75 MG PO DAILY WITH 37.5MG CAP levETIRAcetam (levETIRAcetam) 500 Mg Tablet, 500 MG PO BID Allergies Coded Allergies: SEASONAL ALLERGIES (Verified Allergy, Unknown, 06/23/20) A-FIB/CHADSVASC A-FIB History Current/History of A-Fib/PAF?: No RILEY BOOTH DO Dec 01, 2020 13:23
[2020-12-01] MEDS ORDERED: ISOVUE-300 61% 50ML VIAL As Ordered ONE (16:05)
[2020-12-01 16:17] VITALS: BP 107/71
[2020-12-01] MEDS: VENLAFAXINE **XR** 75MG CAPSULE PO SCH (18:05)
[2020-12-01] MEDS: VENLAFAXINE **XR** 37.5 MG CAPSULE PO SCH (18:05)
[2020-12-01] MEDS: hydrOXYzine 50 MG TAB PO SCH ×2 (18:05→20:54)
[2020-12-01] MEDS: PIPERACILLIN/TAZOBACTAM SOD 3.375 GM in D5W MINI-BAG PLUS 50 ML IV SCH ×2 (18:06→23:53)
[2020-12-01] MEDS: NS 1,000 ML IV SCH (20:53)
[2020-12-01] MEDS: LORATADINE 10 MG TAB PO SCH (20:54)
[2020-12-01 21:00] VITALS: BP 99/61
[2020-12-02] VITALS (9 sets, daily range): BP systolic 98–128; BP diastolic 52–82
[2020-12-02] MEDS: PIPERACILLIN/TAZOBACTAM SOD 3.375 GM in D5W MINI-BAG PLUS 50 ML IV SCH ×4 (05:30→23:57)
[2020-12-02 06:24] LABS: BASO % 0.6 % (0.0-1.0); EOS # 0.2 10^3/uL (0.0-0.5); EOS % 3.8 % (0.0-3.0); HEMATOCRIT 37.2 % (36.0-47.0); LYMPH # 0.7 10^3/uL (1.5-5.0); LYMPH % 13.3 % (24.0-44.0); MEAN CORPUSCULAR HEMOGLOBIN 27.2 pg (27.0-33.0); MEAN CORPUSCULAR HGB CONC 32.3 g/dl (32.0-36.5); MEAN CORPUSCULAR VOLUME 84.4 fl (80.0-96.0); MONO # 0.7 10^3/uL (0.0-0.8); MONO % 13.9 % (2.0-8.0); NEUTROPHILS # 3.4 10^3/uL (1.5-8.5); NEUTROPHILS % 68.2 % (36.0-66.0); PLATELET COUNT, AUTOMATED 210 10^3/uL (150-450); RED BLOOD COUNT 4.41 10^6/uL (4.00-5.40)
[2020-12-02 06:31] LABS: BLOOD UREA NITROGEN 10 MG/DL (7-18); CALCIUM LEVEL 8.3 MG/DL (8.5-10.1); CARBON DIOXIDE LEVEL 25 MEQ/L (21-32); CHLORIDE LEVEL 113 MEQ/L (98-107); GLOMERULAR FILTRATION RATE > 60.0 (>60); GLUCOSE, FASTING 84 MG/DL (70-100); POTASSIUM SERUM 4.1 MEQ/L (3.5-5.1); SODIUM LEVEL 143 MEQ/L (136-145)
[2020-12-02 07:41] LABS: ALBUMIN 2.8 GM/DL (3.2-5.2); ALT/SGPT 42 U/L (12-78); BILIRUBIN,DIRECT 0.3 MG/DL (0.0-0.2); BILIRUBIN,TOTAL 0.7 MG/DL (0.2-1.0); TOTAL PROTEIN 5.9 GM/DL (6.4-8.2)
[2020-12-02] MEDS: NS 1,000 ML IV SCH (09:03)
[2020-12-02] MEDS: busPIRone 10 MG TAB PO SCH ×2 (09:07→20:08)
[2020-12-02] MEDS: levETIRAcetam 250MG TABLET (KEPPRA) PO SCH ×2 (09:07→20:08)
[2020-12-02] MEDS: hydrOXYzine 50 MG TAB PO SCH ×3 (09:07→20:08)
[2020-12-02] MEDS: lamoTRIgine 100MG TAB PO SCH ×2 (09:07→20:07)
[2020-12-02] MEDS: VENLAFAXINE **XR** 37.5 MG CAPSULE PO SCH (09:07)
[2020-12-02] MEDS: VENLAFAXINE **XR** 75MG CAPSULE PO SCH (09:07)
[2020-12-02] MEDS: ARIPiprazole 10 MG TAB PO SCH ×2 (09:07→20:07)
--- NOTE | 2020-12-02 13:13 | DS.PDOC ---
Discharge Summary General Date of Admission Dec 01, 2020 at 02:50 Date of Discharge 12/02/2020 Primary Care Physician: ELOY ANGELA D.O. Attending Physician: RILEY BOOTH DO Specialist/Consultants Involve: VINITA GARZA MD Discharge Summary PROCEDURES PERFORMED DURING STAY: ERCP with bile duct stent replacement. ADMITTING DIAGNOSES: 1. Choledocholithiasis with biliary obstruction. 2. Hyperbilirubinemia 3. Seizure disorder 4. Depression and anxiety DISCHARGE DIAGNOSES: 1. Choledocholithiasis with biliary obstruction, resolved after ERCP. 2. Hyperbilirubinemia, resolved 3. Constipation, resolved 4. Seizure disorder 5. Depression anxiety COMPLICATIONS/CHIEF COMPLAINT: Abdominal Pain. HISTORY OF PRESENT ILLNESS: Patient is a 30-year-old female who presented to the hospital with right upper quadrant abdominal pain and lower chest pain. Patient states that the pain started last night. Patient stated that she felt warm but the machine to take her temperature was broken so she was unable to take a temperature. Patient has a history of gallstones and had a cholecystectomy. Patient's had to have multiple biliary stents due to choledocholithiasis causing obstruction. Patient complains of a sharp pain in her right upper quadrant. Patient also complains of an achy pain in her left lower quadrant and she has been unable to have a bowel movement for a few days. Patient also points to her lower chest area where she has the sharp pain. Patient has not had anything to eat or drink since 5 PM yesterday. Patient is otherwise feeling well. HOSPITAL COURSE: Patient was doing well and had 3 large bowel movements while up on the floor. Patient's ERCP was delayed due to OR capacity on 12/01/2020. Patient did well overnight and had her ERCP on 12/02/2020. After the procedure was performed, the patient was discharged home. Patient can follow-up with gastroenterology outpatient. Patient was doing well and was discharged home on 12/02/2020. DISCHARGE MEDICATIONS: Please see below. ALLERGIES: Please see below. PHYSICAL EXAMINATION ON DISCHARGE: VITAL SIGNS: Please see below. General: Alert and oriented female patient was laying in bed when I walked in. Patient did not appear to be in any acute distress. HEENT: Normocephalic, atraumatic, moist mucous membranes. Neck: No lymphadenopathy or thyromegaly Cardiac: Regular rate and rhythm, no murmurs, normal S1, normal S2 Pulm: Clear to auscultation bilaterally. No wheezes, rhonchi, rales Abd: Nondistended, nontender to palpation, normal bowel sounds Ext: No edema bilateral lower extremities LABORATORY DATA: Please see below. IMAGING: Abdominal x-ray performed on 12/01/2020 is reported to show right upper quadrant biliary stent placed. Normal gas pattern. Chest x-ray performed on 12/01/2020 is reported to show no active cardiopulmonary disease. Biliary stent right upper quadrant. Otherwise negative chest. Abdominal ultrasound performed on 12/01/2020 is reported to show choledocholithiasis with common bile duct dilatation and intrahepatic bile duct dilatation. This includes a common bile duct stone measuring up to 1.8 cm in diameter. Common bile duct is 1.[address] of the abdomen and pelvis with IV contrast performed on is reported to show common bile duct stent in place distal end of the duodenum. There are 2 calculi in the common hepatic duct/common bile duct proximal to the stent measuring 1.9 1.8 cm. There is dilatation of the common hepatic duct and common bile duct up to 20 mm. There is moderate diffuse intrahepatic biliary dilatation. Marked hepatomegaly. Possible thickening of the pylorus and proxi mal duodenum. Possible gastritis/duodenitis PROGNOSIS: Good ACTIVITY: As tolerated. DIET: Low-fat diet DISCHARGE PLAN: Discharge home DISPOSITION: 01-Home, self-care DISCHARGE INSTRUCTIONS: 1. Follow-up with primary care provider within 3 to 5 days discharge. 2. Follow-up with Dr. Garza gastroenterology as scheduled 3. Return to the ED if symptoms worsen ITEMS TO FOLLOWUP ON ON OUTPATIENT: 1. None. DISCHARGE CONDITION: Stable. TIME SPENT ON DISCHARGE: 25 minutes. Vital Signs/I&Os Vital Signs Date Time Temp Pulse Resp B/P (MAP) Pulse Ox O2 Delivery O2 Flow Rate FiO2 12/02/20 05:58 98.0 69 16 98/52 (67) 99 Room Air I&O- Last 24 Hours up to 6 AM 12/02/20 06:00 Intake Total 200 ml Output Total 350 ml Balance -150 ml Laboratory Data Labs 24H Laboratory Tests 2 12/02/20 05:56: Immature Granulocyte % (Auto) 0.2, Neutrophils (%) (Auto) 68.2H, Lymphocytes (%) (Auto) 13.3L, Monocytes (%) (Auto) 13.9H, Eosinophils (%) (Auto) 3.8H, Basophils (%) (Auto) 0.6, Neutrophils # (Auto) 3.4, Lymphocytes # (Auto) 0.7L, Monocytes # (Auto) 0.7, Eosinophils # (Auto) 0.2, Basophils # (Auto) 0.0, Nucleated Red Blood Cells % (auto) 0.0, Anion Gap 5L, Glomerular Filtration Rate > 60.0, Lactic Acid Level 1.2, Calcium Level 8.3L, Total Bilirubin 0.7, Direct Bilirubin 0.3H, Aspartate Amino Transf (AST/SGOT) 25, Alanine Aminotransferase (ALT/SGPT) 42, Alkaline Phosphatase 337H, Total Protein 5.9L, Albumin 2.8L, Albumin/Globulin Ratio 0.9L CBC/BMP Laboratory Tests 12/02/20 05:56 Microbiology Microbiology 12/01/20 Respiratory Virus Panel (PCR) (CRISTINA) - Final, Complete Discharge Medications Scheduled Aripiprazole (Abilify) 10 Mg Tablet, 10 MG PO BID, (Reported) Azelastine HCl (Azelastine HCl) 0.15% [place].pump, 2 SPRAY NARES QHS, (Reported) Buspirone HCl (Buspirone HCl) 10 Mg Tablet, 10 MG PO BID, (Reported) Cholecalciferol (Vitamin D3) (Vitamin D3) 50 Mcg Tablet, 50 MCG PO DAILY, (Reported) Ethinyl Estradiol/Drospirenone (Shakila 3 mg-0.02 mg Tablet) 1 Tab Tab, 1 TAB PO DAILY, (Reported) Hydroxyzine HCl (Hydroxyzine HCl) 50 Mg Tablet, 50 MG PO TID, (Reported) Lamotrigine (Lamotrigine) 200 Mg Tab, 400 MG PO BID, (Reported) Loratadine (Loratadine) 10 Mg Tab, 10 MG PO QHS, (Reported) Propylene Glycol/Peg 400/Pf (Systane 0.3-0.4% Eye Drop) 1 Each Droperette, 1 DROP OU QID, (Reported) Venlafaxine HCl (Effexor Xr) 37.5 Mg Cap.er.24h, 37.5 MG PO DAILY, (Reported) WITH 75MG CAP Venlafaxine HCl (Effexor Xr) 75 Mg Cap.er.24h, 75 MG PO DAILY, (Reported) WITH 37.5MG CAP levETIRAcetam (levETIRAcetam) 500 Mg Tablet, 500 MG PO BID, (Reported) Allergies Coded Allergies: SEASONAL ALLERGIES (Verified Allergy, Unknown, 06/23/20) RILEY BOOTH DO Dec 02, 2020 13:13
[2020-12-02] MEDS ORDERED: ISOVUE-300 61% 50ML VIAL As Ordered ONE (15:32)
[2020-12-02] MEDS ORDERED: LIDOCAINE 2% 100MG/5ML SDV (FOR ANES.) As Ordered ONE (16:09)
[2020-12-02] MEDS ORDERED: ROCURONIUM BROMIDE 50 MG/5 ML VIAL As Ordered ONE (16:09)
[2020-12-02] MEDS ORDERED: ONDANSETRON 4MG/2ML VIAL As Ordered ONE (16:09)
[2020-12-02] MEDS ORDERED: SUGAMMADEX SODIUM 500 MG/5 ML VIAL (BRIDION) As Ordered ONE (16:09)
[2020-12-02] MEDS ORDERED: propofoL 200 MG/20 ML VIAL As Ordered ONE (16:09)
[2020-12-02] MEDS ORDERED: KETOROLAC 60MG 2ML VIAL As Ordered ONE (16:09)
[2020-12-02] MEDS ORDERED: fentaNYL 100 MCG/2 ML INJECTION (J3010) As Ordered ONE (16:12)
[2020-12-02] MEDS ORDERED: dexameTHASONE 4 MG/ML 1ML VIAL (J1100 PER 1MG) As Ordered ONE (16:16)
[2020-12-02] MEDS ORDERED: METOCLOPRAMIDE INJ 10MG/2ML VIAL (J2765 PER 1) As Ordered ONE (16:16)
[2020-12-02] MEDS ORDERED: LR 1,000 ML IV SCH (18:25)
[2020-12-02] MEDS ORDERED: ONDANSETRON 4MG/2ML VIAL IV PRN (18:25)
[2020-12-02] MEDS ORDERED: fentaNYL 100 MCG/2 ML INJECTION (J3010) IV PRN (18:25)
[2020-12-02] MEDS ORDERED: oxyCODONE 5MG TAB PO PRN (18:25)
--- NOTE | 2020-12-02 19:10 | IPNPDOC ---
Text Note Date of Service The patient was seen on 12/02/20. NOTE Subjective: Patient is a 30 year old female who presented to the hospital yes terday with abdominal pain. Patient was found to have obstructing stone in bile duct. Patient had 3 large bowel movements overnight and states her abdominal pain has improved. Patient is otherwise feeling well. Review of systems: General: Patient denies fevers HEENT: Patient denies headaches Cardiovascular: Patient denies chest pain Respiratory: Patient denies shortness of breath, cough GI: Patient denies abdominal pain, nausea, vomiting, diarrhea : Patient denies increased frequency or pain with urination Extremities: Patient denies swelling or pain in extremities Neurological: Patient denies numbness or tingling in legs Physical exam: Vitals: See below General: Alert and oriented female patient who was laying in bed when I walked into the room. Patient did not appear to be in any acute distress. HEENT: Normocephalic, atraumatic, moist mucous membranes. Neck: Bandages placed over the anterior aspect of the neck with a surgical drain placed in the right side of the neck. Cardiac: Regular rate and rhythm, no murmurs, normal S1, normal S2 Pulm: Clear to auscultation bilaterally. No wheezes, rhonchi, rales Abd: Nondistended, nontender to palpation, normal bowel sounds Ext: No edema bilateral lower extremities Labs: See below Imaging: No new imaging has been performed. Assessment/plan: 30 year old female who presented to the hospital with upper abdominal pain and was found to have stone in the common bile duct causing obstruction requiring ERCP. 1. Choledocholithiasis with biliary obstruction. Patient had ERCP later in the afternoon. Due to the procedure being later in the day, the decision was made to keep the patient an additional nigh to monitor the patient. Procedure went well and patient was returned back to the floor. Patient can be discharged tomorrow morning. 2. Hyperbilirubinemia. This has improved prior to the ERCP. This will be rechecked in the morning. 3. Seizure disorder. We will continue patient's medications. 4. Depression anxiety. Continue patient's home medications. DVT propylaxis: TEDs and SCDs Dispo: Will be kept overnight after ERCP and should be discharged tomorrow. VS,Fishbone, I+O VS, Fishbone, I+O Laboratory Tests 12/02/20 05:56 Vital Signs Date Time Temp Pulse Resp B/P (MAP) Pulse Ox O2 Delivery O2 Flow Rate FiO2 12/02/20 18:45 97.7 69 18 128/82 (97) 96 Room Air I&O- Last 24 Hours up to 6 AM 12/02/20 06:00 Intake Total 200 ml Output Total 350 ml Balance -150 ml RILEY BOOTH DO Dec 02, 2020 19:10
[2020-12-02] MEDS: LORATADINE 10 MG TAB PO SCH (20:08)
[2020-12-03 05:00] VITALS: BP 98/72
[2020-12-03] MEDS: PIPERACILLIN/TAZOBACTAM SOD 3.375 GM in D5W MINI-BAG PLUS 50 ML IV SCH ×2 (05:33→12:00)
[2020-12-03 06:18] LABS: BASO % 0.5 % (0.0-1.0); EOS # 0.1 10^3/uL (0.0-0.5); EOS % 2.4 % (0.0-3.0); HEMATOCRIT 36.8 % (36.0-47.0); HEMOGLOBIN 11.8 g/dl (12.0-15.5); LYMPH # 0.8 10^3/uL (1.5-5.0); LYMPH % 14.4 % (24.0-44.0); MEAN CORPUSCULAR HEMOGLOBIN 27.4 pg (27.0-33.0); MEAN CORPUSCULAR HGB CONC 32.1 g/dl (32.0-36.5); MEAN CORPUSCULAR VOLUME 85.6 fl (80.0-96.0); MONO # 0.5 10^3/uL (0.0-0.8); MONO % 9.2 % (2.0-8.0); NEUTROPHILS # 4.3 10^3/uL (1.5-8.5); PLATELET COUNT, AUTOMATED 234 10^3/uL (150-450); WHITE BLOOD COUNT 5.9 10^3/uL (4.0-10.0)
[2020-12-03 06:46] LABS: ALBUMIN 2.7 GM/DL (3.2-5.2); ALT/SGPT 42 U/L (12-78); BILIRUBIN,DIRECT 0.3 MG/DL (0.0-0.2); BILIRUBIN,TOTAL 0.4 MG/DL (0.2-1.0); BLOOD UREA NITROGEN 9 MG/DL (7-18); CALCIUM LEVEL 8.9 MG/DL (8.5-10.1); CARBON DIOXIDE LEVEL 29 MEQ/L (21-32); CHLORIDE LEVEL 112 MEQ/L (98-107); CREATININE FOR GFR 0.71 MG/DL (0.55-1.30); GLOMERULAR FILTRATION RATE > 60.0 (>60); GLUCOSE, FASTING 106 MG/DL (70-100); POTASSIUM SERUM 4.6 MEQ/L (3.5-5.1); SODIUM LEVEL 145 MEQ/L (136-145); TOTAL PROTEIN 5.9 GM/DL (6.4-8.2)
[2020-12-03] MEDS: ARIPiprazole 10 MG TAB PO SCH (08:59)
[2020-12-03] MEDS: VENLAFAXINE **XR** 75MG CAPSULE PO SCH (08:59)
[2020-12-03] MEDS: lamoTRIgine 100MG TAB PO SCH (08:59)
[2020-12-03] MEDS: VENLAFAXINE **XR** 37.5 MG CAPSULE PO SCH (08:59)
[2020-12-03] MEDS: busPIRone 10 MG TAB PO SCH (08:59)
[2020-12-03] MEDS: levETIRAcetam 250MG TABLET (KEPPRA) PO SCH (08:59)
[2020-12-03] MEDS: hydrOXYzine 50 MG TAB PO SCH (09:04)
[2020-12-03 14:00] VITALS: BP 121/67
--- NOTE | 2020-12-03 16:42 | DS.PDOC ---
Discharge Summary General Date of Admission Dec 01, 2020 at 02:50 Date of Discharge 12/03/20 Discharge Summary Addendum to previously dictated discharge summary on 12/02/2020 Patient was doing fine in the morning she tolerated food and she did not have any abdominal pain. No nausea or vomiting Physical exam pertinent for soft nontender abdomen. Patient will be discharge with close follow-up with GI team Vital Signs/I&Os Vital Signs Date Time Temp Pulse Resp B/P (MAP) Pulse Ox O2 Delivery O2 Flow Rate FiO2 12/03/20 14:00 97.2 78 18 121/67 (85) 96 Room Air I&O- Last 24 Hours up to 6 AM 12/03/20 06:00 Intake Total 1950 ml Output Total 850 ml Balance 1100 ml Laboratory Data Labs 24H Laboratory Tests 2 12/03/20 05:32: Immature Granulocyte % (Auto) 0.5, Neutrophils (%) (Auto) 73.0H, Lymphocytes (%) (Auto) 14.4L, Monocytes (%) (Auto) 9.2H, Eosinophils (%) (Auto) 2.4, Basophils (%) (Auto) 0.5, Neutrophils # (Auto) 4.3, Lymphocytes # (Auto) 0.8L, Monocytes # (Auto) 0.5, Eosinophils # (Auto) 0.1, Basophils # (Auto) 0.0, Nucleated Red Blood Cells % (auto) 0.0, Anion Gap 4L, Glomerular Filtration Rate > 60.0, Calcium Level 8.9, Total Bilirubin 0.4, Direct Bilirubin 0.3H, Aspartate Amino Transf (AST/SGOT) 24, Alanine Aminotransferase (ALT/SGPT) 42, Alkaline Phosphatase 315H, Total Protein 5.9L, Albumin 2.7L, Albumin/Globulin Ratio 0.8L CBC/BMP Laboratory Tests 12/03/20 05:32 Microbiology Microbiology 12/01/20 Respiratory Virus Panel (PCR) (CRISTINA) - Final, Complete Discharge Medications Scheduled Aripiprazole (Abilify) 10 Mg Tablet, 10 MG PO BID, (Reported) Azelastine HCl (Azelastine HCl) 0.15% Charmco.pump, 2 SPRAY NARES QHS, (Reported) Buspirone HCl (Buspirone HCl) 10 Mg Tablet, 10 MG PO BID, (Reported) Cholecalciferol (Vitamin D3) (Vitamin D3) 50 Mcg Tablet, 50 MCG PO DAILY, (Reported) Ethinyl Estradiol/Drospirenone (Shakila 3 mg-0.02 mg Tablet) 1 Tab Tab, 1 TAB PO DAILY, (Reported) Hydroxyzine HCl (Hydroxyzine HCl) 50 Mg Tablet, 50 MG PO TID, (Reported) Lamotrigine (Lamotrigine) 200 Mg Tab, 400 MG PO BID, (Reported) Loratadine (Loratadine) 10 Mg Tab, 10 MG PO QHS, (Reported) Propylene Glycol/Peg 400/Pf (Systane 0.3-0.4% Eye Drop) 1 Each Droperette, 1 DROP OU QID, (Reported) Venlafaxine HCl (Effexor Xr) 37.5 Mg Cap.er.24h, 37.5 MG PO DAILY, (Reported) WITH 75MG CAP Venlafaxine HCl (Effexor Xr) 75 Mg Cap.er.24h, 75 MG PO DAILY, (Reported) WITH 37.5MG CAP levETIRAcetam (levETIRAcetam) 500 Mg Tablet, 500 MG PO BID, (Reported) Allergies Coded Allergies: SEASONAL ALLERGIES (Verified Allergy, Unknown, 06/23/20) BELKIS COLINDRES DO Dec 03, 2020 16:42
--- NOTE | 2020-12-04 08:22 | REP ---
INDICATION: ABDOMINAL PAID. COMPARISON: None. TECHNIQUE: 19 minutes and 12 seconds fluoroscopy time was provided for the exam. Ninety-nine fluoroscopic spot images were obtained during ERCP. FINDINGS: Varying degrees of contrast opacification is seen in the common bile duct and biliary tree. Multiple filling defects seen on earlier images are not apparent on the final image. This needs to be correlated clinically. IMPRESSION: As above <Electronically signed by Trevor Caraballo > 12/04/20 0819
== END 2020-12-03 15:15 | disposition home or self-care (01) | DRG 446 ==
LOC: M ED 02:49 → M ED INP 02:50 → ENRESERV 14:30 → M ED 16:03 → M MSPAV 16:10 → OBSVTOIN 12-02 19:05 → UNDODISOB 12-03 15:15
PROVIDERS: ADMIT Family Medicine; ATTEND Internal Medicine
PROC: 0FPB8DZ Removal of Intraluminal Device from Hepatobiliary Duct, Via Natural or Artificial Opening Endoscopic (ICD-10-PCS; 2020-12-02)
PROC: 0F798DZ Dilation of Common Bile Duct with Intraluminal Device, Via Natural or Artificial Opening Endoscopic (ICD-10-PCS; principal; 2020-12-02 15:30)
DX: K80.51 Calculus of bile duct without cholangitis or cholecystitis with obstruction (principal); F31.9 Bipolar disorder, unspecified; F41.9 Anxiety disorder, unspecified; J30.2 Other seasonal allergic rhinitis; G40.909 Epilepsy, unspecified, not intractable, without status epilepticus; K59.00 Constipation, unspecified; E78.1 Pure hyperglyceridemia; D86.9 Sarcoidosis, unspecified; Z90.49 Acquired absence of other specified parts of digestive tract; Z90.5 Acquired absence of kidney; Z79.899 Other long term (current) drug therapy

== ENCOUNTER 2020-12-23 18:47 | Emergency (ER) | payer MEDICARE, MEDICAID ==
[~2020-12-23 18:47] MED LIST changes: +D32000TA2 PO; +MIRE1IUD IU; +SYST1SOL4 OU
--- OUTSIDE RECORDS SUMMARY | 2020-12-23 18:57 | CCD ---
Author Author [facility] Address Unknown Phone Unavailable Care Team Providers Care Lump Inspector Name Role Phone Michelle Pretty MD Unavailable [...] Unavailable Unavailable Harry Mathews MD Unavailable Unavailable [place]wood, F Steve PA Unavailable Unavailable Sonia, F Steve PA Unavailable Unavailable Sonia, F Steve PA Unavailable Unavailable Glenwood, F Steve PA Unavailable Unavailable [place]wood, F Steve PA Unavailable Unavailable Sonia, F Steve PA Unavailable Unavailable [place]wood, F Steve PA Unavailable Unavailable Sonia, F Steve PA Unavailable Unavailable Sonia, F Steve PA Unavailable Unavailable Glenwood, F Steve PA Unavailable Unavailable Hadian, Mor [...] Unavailable Unavailable Hadian, Mor Unavailable Unavailable Hadian, Omr Unavailable Unavailable Hadian, Mor Unavailable Unavailable Hadian, Mor Unavailable Unavailable Hadian, Mor Unavailable Unavailable Austin, Nadine PA Unavailable Unavailable Sergio, Nadine PA [...] Unavailable MANN, J ZOË PA Unavailable Unavailable AMNN, J ZOË PA Unavailable Unavailable MANN, J [...] J Meli PA Unavailable Unavailable Trickey, J Meil PA Unavailable Unavailable Trickey, J Meli PA [...] Unavailable Unavailable Kristy SANDOVAL MD Unavailable Unavailable Krisyt SANDOVAL MD Unavailable Unavailable Kristy SANDOVAL MD [...] is protected by Article 27-F of the [facility] Public Health law. If you continue you may have access to information: Regarding HIV / AIDS; Provided by facilities licensed or operated by the [facility] Office of Mental Health; or Provided by the [facility] Office for People With Developmental Disabilities. If such information is present, then the following [facility] mandated warning applies: This information has [...] law may result in a fine or fci sentence or both. A general authorization for the release of medical or other information is NOT sufficient authorization for further disc losure. Allergies and Adverse Reactions Type Description Substance Reaction Status Data Source(s ) Drug allergy Drug allergy No Known Allergies [facility] Propensity to adverse reactions NO KNOWN ALLERGIES NO KNOWN ALLERGIES [facility] Propensity to adverse reactions NKDA NKDA MEDENT ([facility]) Family History Family Member Name Family Member Gender Family Member Status Date o f Status Description Data Source(s) Unknown Male Problem MEDENT ([facility] Unknown Male Problem MED[facility] ([facility]) Encounters Encounter Providers Location Date Indications Data Source(s ) Outpatient Attender: ZO[facility] GAO [facility] 11/28 12:00:00 PM EDT MED[facility] ([facility] Outpatient Attender: ZOË GAO 11/28 11:49:00 AM EDT - 11/28/2020 11:49:00 AM EDT [facility] Outpatient Attender: Michelle Jarvis/Stacy/Lonnie/Ariel ndl 11/25/2020 09:30:00 AM EDT MED[facility] ([facility] Outpatient Attender: ARIS PATRICIA [facility] 10/09 10:45:00 AM EDT MEDENT ([facility] Outpatient Attender: Meli GAO [facility] 10/24/2020 10:45:00 AM EDT MEDENT ([facility]) Outpatient Attender: CATHLEEN Jarvis/Stacy/Ang el/Reindl 10/06/2020 11:40:00 AM EDT [facility] ([facility] Outpatient Attender: ZOË GAO 09/06 09:07:00 AM EDT - 09/06/2020 09:07:00 AM EDT [facility] ( GYNANN) [facility] Yearly [employer] SEAMAN Exam [address] [place] [address] 09/06/2020 12:00:00 AM EDT eCW1 ([facility]) [place] [address] [facility] [place] [address] 08/26/2020 12:00:00 AM EDT eCW1 ([facility]) [place] [address] [facility] [facility] [address] 08/22/2020 12:00:00 AM EDT eCW1 ([facility]) Outpatient Attender: ZOË GAO 08/01 12:22:00 PM EDT - 08/01/2020 12:22:00 PM EDT [facility] Outpatient Attender: [facility] 08/01 12:00:00 PM EDT [facility] ([facility] [place] [address] [facility] [place] [address] 07/26/2020 12:00:00 AM EDT eCW1 ([facility]) Outpatient Attender: Meli GAO Main office - [facility] 07/22/2020 08:00:00 AM EDT MEDENT ([facility]) Outpatient Attender: ARIS PATRICIA [facility] Office 07/09 10:45:00 AM EDT MEDENT ([facility] Outpatient Attender: CATHLEEN Jarvis/Stacy/Abe reeves/Reintriny 06/16/2020 08:30:00 AM EDT [facility] ([facility]) [place] [address] [facility] [place] [address] 06/14/2020 12:00:00 AM EDT eCW1 ([facility]) Outpatient Attender: Michelle Jarvis/Stacy/Lonnie/Ariel ndl 06/13/2020 11:00:00 AM EDT MEDENT ([facility]) Outpatient Attender: Gregorio Mathews MD Main Office 05/26/2020 11:00:00 AM EDT MEDENT ([facility]) Outpatient Attender: ZOË GAO 05/06 12:29:00 PM EST - 05/06/2020 12:29:00 PM EST [facility] Outpatient Attender: ZOË GAO [facility] 05/06 11:20:00 AM EST [facility] Visit Attender: Meli GAO Main [facility] 05/03/2020 07:45:00 AM EST [facility] ([facility] ) [place] [address] [facility] [place] [address] 04/27/2020 12:00:00 AM EST [facility]CW[facility] Outpatient Attender: ARIS PATRICIA [facility] Office 04/11 09:45:00 AM EST [facility] ([facility] [place] [address] [facility] [place] [address] 04/11/2020 12:00:00 AM EST eCW1 ([facility]) Unknown [address] [facility] [place] [address] 04/08/2020 12:00:00 AM EST eCW1 ([facility] Unknown [address] [facility] [place] [address] 04/01/2020 12:00:00 AM EST eCW1 ([facility]) Unknown [address] [facility] [place] [address] 03/30/2020 12:00:00 AM EST eCW1 ([facility] Outpatient [address] [facility] [place] [address] 2020 12:00:00 AM EST eCW1 ([facility]) Outpatient Attender: ZOË GAO 03/25 01:23:00 PM EST - 03/25/2020 01:23:00 PM EST [facility] Outpatient Attender: ZOË AGO Family Practice 03/25 12:20:00 PM EST [facility] [place] [address] [facility] [place] [address] 03/25/2020 12:00:00 AM EST eCW1 ([facility]) Outpatient [address] [facility] [place] [address] 03/10/2020 12:00:00 AM EST eCW1 ([facility]) Outpatient Attender: Mor Braun ED-LABPNP 11:34:00 AM EST - 03/09/2020 11:35:00 AM EST REQUIRED [facility] REQUIRED [facility] Patient discharged. Outpatient Attender: Mor Braun ED-LABPNP 0 10:53:00 AM EST - 03/03/2020 10:54:00 AM EST RETURN TO [facility] RETURN TO [facility] Patient discharged. Emergency Attender: Steve GAO ED-ED 09:05:00 AM EST - 03/03/2020 10:00:[address] [facility] ITCHING Patient discharged. [place] [address] [facility] [address] [address] 02/29/2020 12:00:00 AM EST eCW1 ([facility]) [place] [address] [facility] [address] [address] 02/22/2020 12:00:00 AM EST eCW1 ([facility]) Outpatient [facility] 02/11/2020 03:27:00 PM EST [facility] Outpatient Attender: Mor Braun ED-LABPNP 0 11:54:00 AM EST - 02/11/2020 11:55:00 AM EST NEED TO RETURN TO [facility] NEED TO RETURN TO [facility] Patient discharged. [place] [address] [facility] [address] [address] 02/10/2020 12:00:00 AM EST eCW1 ([facility]) Outpatient Attender: ZOË GAO 02/07 11:28:00 AM EST - 02/08/2020 11:28:00 AM EST [facility] Outpatient Attender: ZOË GAO Family [facility] 02/07 10:20:00 AM EST [facility] Office Visit Attender: Meli GAO [facility] 02/01/2020 07:45:00 AM EST MED[facility] ([facility] ) Outpatient Attender: ARIS PATRICIA [facility] Office 01/09 10:00:00 AM EST MEDENT ([facility] Inpatient Attender: HSEILA BURDENOFFAdm itter: SHEILA BURDENOFFReferrer: Meli GAO [id number] 01/11/2020 12:00:00 AM EST - 01/15/2020 03:10:00 PM EST Localization-related (focal) (partial) symptomatic epilepsy and epileptic syndromes with simple partial seizures, not intractable, without status epilepticus [facility] Localization-related (focal) (partial) s ymptomatic epilepsy and epileptic syndromes with simple partial seizures, not intractable, without status epilepticus Patient discharged. Outpatient Attender: Nadine GAO ED-LABPNP 01/10/2020 02:14:00 P M EST [address] [facility] PREOP Outpatient Attender: Nadine GAO ED-LABPNP 01/06/2020 08:0 0:[address] [facility] PRE OP Outpatient Attender: ZOË GAO 12/28 10:23:00 AM EDT - 12/29/2019 10:23:00 AM EDT [facility] Outpatient Attender: Nadine GAO CPSCAORT-LABPNP 12/29/2019 0 8:00:00 AM EDT COVID SCREENING [facility] COVID SCREENING Outpatient Attender: Meli GAO [facility] 10/30/2019 08:30:00 AM EDT MEDENT ([facility]) Immunizations Vaccine Date Status Description Data Source(s) COVID-19 VACCINE Pfizer 04/05/2020 12:00:00 AM EST completed [facility] Vaccine Series Complete: YESThis Data wa s Submitted to [facility] Via [employer]. COVID-19 VACCINE Pfizer 03/15/2020 12:00:00 AM EST completed [facility] Vaccine Series Complete: NOThis Data was Submitted to [facility] Via [employer]. INFLUENZA VIRUS VACCINE QUADRIVALENT (6 MOS AN D UP) 01/06/2020 12:00:00 AM EDT completed [facility] Medications Medication Brand Name Start Date Product Form Dose Route Admi nistrative Instructions Pharmacy Instructions Status Indications Reaction Description Data Source(s) buspirone hydrochloride 10 MG Oral Tablet Buspirone HCL 09/20/2020 12:00:00 AM EDT ORAL active MEDENT ([facility]) buspirone hydrochloride 15 MG Oral Tablet Buspirone HCL 09/06/2020 12:00:00 AM EDT ORAL completed MEDENT ([facility]) Clotrimazole 10 MG/ML Topical Cream Clotrimazole 07/19/2020 12:00:00 AM EDT active [facility] ([facility] Ursodiol 300 MG Oral Capsule Ursodiol 06/23/2020 12:00:00 AM EDT ORAL active MEDENT ([facility], ) Ciprofloxacin 500 MG Oral Tablet [Cipro] Cipro 06/23/2020 12:00:00 AM EDT completed MEDENT ([facility], ) aripiprazole 10 MG Oral Tablet Aripiprazole 06/20/2020 12:00:00 AM EDT ORAL active MEDENT ([facility]) Levetiracetam 500 MG Oral Tablet Levetiracetam 06/09/2020 12:00:00 AM EDT ORAL active MEDENT ([facility]) Levetiracetam 750 MG Oral Tablet Levetiracetam 05/11/2020 12:00:00 AM EST ORAL completed MEDENT ([facility]) Azelastine HCl 0.15 % Azelastine HCl 0.15 % 04/27/2020 12:00:00 AM EST 2.0 {sprays_in_each_nostril} active Azelast ine HCl 0.15 % eCW1 ([facility]) Azelastine HCl 0.15 % Azelastine HCl 0.15 % 04/27/2020 12:00:00 AM EST 2.0 {sprays_in_each_nostril} active Azelast ine HCl 0.15 % eCW1 ([facility]) ammonium lactate 120 MG/ML Topical Cream Ammonium Lactate 04/26/2020 12:00:00 AM EST active [facility] ([facility] Levetiracetam 500 MG Oral Tablet Levetiracetam 04/12/2020 12:00:00 AM EST ORAL completed MEDENT ([facility]) Hydroxyzine Hydrochloride 50 MG Oral Tablet Hydroxyzine HCL 03/25/2020 12:00:00 AM EST ORAL active MEDENT ([facility]) Sodium Chloride 0.111 MEQ/ML Nasal Malo Saline Nasal Malo 0.65 % Saline Nasal Malo 0.65 % 03/10/2020 12:00:00 AM EST activ e Saline Nasal Malo 0.65 % eCW1 ([facility]) Sodium Chloride 0.111 MEQ/ML Nasal Malo Saline Nasal Malo 0.65 % Saline Nasal Malo 0.65 % 03/10/2020 12:00:00 AM EST activ e Saline Nasal Malo 0.65 % eCW1 ([facility]) Sodium Chloride 0.111 MEQ/ML Nasal Malo Saline Nasal Malo 0.65 % Saline Nasal Malo 0.65 % 03/10/2020 12:00:00 AM EST activ e Saline Nasal Malo 0.65 % eCW1 ([facility]) Sodium Chloride 0.111 MEQ/ML Nasal Malo Saline Nasal Malo 0.65 % Saline Nasal Malo 0.65 % 03/10/2020 12:00:00 AM EST activ e Saline Nasal Malo 0.65 % eCW1 ([facility]) Sodium Chloride 0.111 MEQ/ML Nasal Malo Saline Nasal Malo 0.65 % Saline Nasal Malo 0.65 % 03/10/2020 12:00:00 AM EST activ e Saline Nasal Malo 0.65 % eCW1 ([facility]) Sodium Chloride 0.111 MEQ/ML Nasal Malo Saline Nasal Malo 0.65 % Saline Nasal Malo 0.65 % 03/10/2020 12:00:00 AM EST activ e Saline Nasal Malo 0.65 % eCW1 ([facility]) Sodium Chloride 0.111 MEQ/ML Nasal Malo Saline Nasal Malo 0.65 % Saline Nasal Malo 0.65 % 03/10/2020 12:00:00 AM EST activ e Saline Nasal Malo 0.65 % eCW1 ([facility]) Sodium Chloride 0.111 MEQ/ML Nasal Malo Saline Nasal Malo 0.65 % Saline Nasal Malo 0.65 % 03/10/2020 12:00:00 AM EST activ e Saline Nasal Malo 0.65 % eCW1 ([facility]) Sodium Chloride 0.111 MEQ/ML Nasal Malo Saline Nasal Malo 0.65 % Saline Nasal Malo 0.65 % 03/10/2020 12:00:00 AM EST activ e Saline Nasal Malo 0.65 % eCW1 ([facility]) Sodium Chloride 0.111 MEQ/ML Nasal Malo Saline Nasal Malo 0.65 % Saline Nasal Malo 0.65 % 03/10/2020 12:00:00 AM EST activ e Saline Nasal Malo 0.65 % eCW1 ([facility]) Sodium Chloride 0.111 MEQ/ML Nasal Malo Saline Nasal Malo 0.65 % Saline Nasal Malo 0.65 % 03/10/2020 12:00:00 AM EST activ e Saline Nasal Malo 0.65 % eCW1 ([facility]) Sodium Chloride 0.111 MEQ/ML Nasal Malo Saline Nasal Malo 0.65 % Saline Nasal Malo 0.65 % 03/10/2020 12:00:00 AM EST activ e Saline Nasal Malo 0.65 % eCW1 ([facility]) Sodium Chloride 0.111 MEQ/ML Nasal Malo Saline Nasal Malo 0.65 % Saline Nasal Malo 0.65 % 03/10/2020 12:00:00 AM EST activ e Saline Nasal Malo 0.65 % eCW1 ([facility]) Sodium Chloride 0.111 MEQ/ML Nasal Malo Saline Nasal Malo 0.65 % Saline Nasal Malo 0.65 % 03/10/2020 12:00:00 AM EST activ e Saline Nasal Malo 0.65 % eCW1 ([facility]) Sodium Chloride 0.111 MEQ/ML Nasal Malo Saline Nasal Malo 0.65 % Saline Nasal Malo 0.65 % 03/10/2020 12:00:00 AM EST activ e Saline Nasal Malo 0.65 % eCW1 ([facility]) Sodium Chloride 0.111 MEQ/ML Nasal Malo Saline Nasal Malo 0.65 % Saline Nasal Malo 0.65 % 03/10/2020 12:00:00 AM EST activ e Saline Nasal Malo 0.65 % eCW1 ([facility]) Sodium Chloride 0.111 MEQ/ML Nasal Malo Saline Nasal Malo 0.65 % Saline Nasal Malo 0.65 % 03/10/2020 12:00:00 AM EST activ e Saline Nasal Malo 0.65 % eCW1 ([facility]) Sodium Chloride 0.111 MEQ/ML Nasal Malo Saline Nasal Malo 0.65 % Saline Nasal Malo 0.65 % 03/10/2020 12:00:00 AM EST activ e Saline Nasal Malo 0.65 % eCW1 ([facility]) Sodium Chloride 0.111 MEQ/ML Nasal Malo Saline Nasal Malo 0.65 % Saline Nasal Malo 0.65 % 03/10/2020 12:00:00 AM EST activ e Saline Nasal Malo 0.65 % eCW1 ([facility]) Sodium Chloride 0.111 MEQ/ML Nasal Malo Saline Nasal Malo 0.65 % Saline Nasal Malo 0.65 % 03/10/2020 12:00:00 AM EST activ e Saline Nasal Malo 0.65 % eCW1 ([facility]) Sodium Chloride 0.111 MEQ/ML Nasal Malo Saline Nasal Malo 0.65 % Saline Nasal Malo 0.65 % 03/10/2020 12:00:00 AM EST activ e Saline Nasal Malo 0.65 % eCW1 ([facility]) Sodium Chloride 0.111 MEQ/ML Nasal Malo Saline Nasal Malo 0.65 % Saline Nasal Malo 0.65 % 03/10/2020 12:00:00 AM EST activ e Saline Nasal Malo 0.65 % eCW1 ([facility]) 20 mg 03/03/2020 12:00:00 AM EST tablet 8 TAKE TWO TABLETS BY MOUTH ONCE DAILY TAKE TWO TABLETS BY MOUTH ONCE DAILY SOLD: 03/03/2020 [facility] Fluticasone Propionate 50 MCG/ACT Fluticasone Propionate 50 MCG/ACT 02/22/2020 12:00:00 AM EST 1.0 {spray_in_each_nostril} acti ve Fluticasone Propionate 50 MCG/ACT eCW1 ([facility]) Fluticasone Propionate 50 MCG/ACT Fluticasone Propionate 50 MCG/ACT 02/22/2020 12:00:00 AM EST 1.0 {spray_in_each_nostril} acti ve Fluticasone Propionate 50 MCG/ACT eCW1 ([facility]) Divalproex Sodium 125 MG Delayed Release Oral Capsule [Depakote] Depakote Patricioles 02/08/2020 12:00:00 AM EST completed MEDENT ([facility]) Divalproex Sodium 125 MG Delayed Release Oral Capsule Divalp roex Sodium 02/08/2020 12:00:00 AM EST ORAL active MEDENT ([facility]) 24 HR Divalproex Sodium 500 MG Extended Release Oral T ablet [Depakote] Depakote ER 02/01/2020 12:00:00 AM EST ORAL completed MEDENT ([facility]) Hydroxyzine Hydrochloride 50 MG Oral Tablet hydrOXYzin e (ATARAX) tablet 25 mg hydrOXYzine (ATARAX) tablet 25 mg 01/14/2020 06:15:00 PM EST 25 mg Oral completed 25 mg, Oral, Once, Sat01/14/20 a t 1815, For 1 dose [facility] Medication administered onsite lamotrigine 100 MG Oral Tablet lamoTRIgine (LaMICtal) tablet 400 mg lamoTRIgine (LaMICtal) tablet 400 mg 01/14/2020 11:30:00 AM EST 400 mg Oral active 400 mg, Oral, 2 Times Daily, First dose on Sat01/14/20 at 1130, For 30 days [facility] Medication administered onsite lamotrigine 100 MG Oral Tablet lamoTRIgine (LaMICtal) tablet 200 mg lamoTRIgine (LaMICtal) tablet 200 mg 01/13/2020 09:00:00 PM EST 200 mg Oral active 200 mg, Oral, Once, Sat01/13/20 at 2100, For 1 dose [facility] Medication administered onsite diazePAM (VALIUM) injection 5 mg [id number] 01/13/2020 12:54:25 PM EST 5 mg Intravenous aborted 5 mg, Intrave nous, Once PRN, Give for 1st GTC, Starting Sat01/13/20 at 1254, For 4 days
Give indicated order dose for 1st GTC
[facility] Medication administered onsite lamotrigine 100 MG Oral Tablet lamoTRIgine (LaMICtal) tablet 200 mg lamoTRIgine (LaMICtal) tablet 200 mg 01/12/2020 09:00:00 PM EST 200 mg Oral active 200 mg, Oral, 2 Times Daily, First dose (after last reorder) on Sat01/12/20 at 2100, For 1 dose [facility] Medication administered onsite lamotrigine 100 MG Oral Tablet lamoTRIgine (LaMICtal) tablet 200 mg lamoTRIgine (LaMICtal) tablet 200 mg 01/12/2020 01:00:00 PM EST 200 mg Oral active 200 mg, Oral, Once, Sat01/12/20 at 1300, For 1 dose [facility] Medication administered onsite lamotrigine 100 MG Oral Tablet lamoTRIgine (LaMICtal) tablet 200 mg lamoTRIgine (LaMICtal) tablet 200 mg 01/12/2020 10:00:00 AM EST 200 mg Oral active 200 mg, Oral, 2 Times Daily, First dose (after last modification) on Sat01/12/20 at 1000, For 1 dose [facility] Medication administered onsite drospirenone 3 MG [...] Own medication being used for this order
[facility] Medication administered onsite cetirizine hydrochloride 10 MG Oral Tablet cetirizine (ZYRTEC) tablet 10 mg cetirizine (ZYRTEC) tablet 10 mg 01/12/2020 09:00:00 AM EST 10 mg Oral active 10 mg, Oral, Daily Standard, First dose on Sat01/12/20 at 0900, For 30 days [facility] Medication administered onsite Cholecalciferol 1000 UNT Oral Tablet vit oconnell D3 (CHOLECALCIFEROL) tablet 2,000 Units vitamin D3 (CHOLECALCIFEROL) tablet 2,000 Units 2019 09:00:00 AM EST 2000 U Oral active 2,000 Un its, Oral, Daily Standard, First dose on Sat01/12/20 at 0900, For 20 days
25 mcg vitamin D3 = 1,000 international units vitamin D3.
[facility] Medication administered onsite 24 HR venlafaxine [...] XR 75 mg to get 112.5 mg
[facility] Medication administered onsite 24 HR venlafaxine [...] XR 37.5 mg to get 112.5 mg
[facility] Medication administered onsite lamotrigine 100 MG Oral Tablet lamoTRIgine (LaMICtal) tablet 400 mg lamoTRIgine (LaMICtal) tablet 400 mg 01/11/2020 09:00:00 PM EST 400 mg Oral active 400 mg, Oral, 2 Times Daily, First dose on Sat01/11/20 at 2100, For 1 dose [facility] Medication administered onsite buspirone hydrochloride 10 MG Oral Tablet busPIRone (B USPAR) tablet 10 mg busPIRone (BUSPAR) tablet 10 mg 01/11/2020 09:00:00 PM EST 10 mg O ral active 10 mg, Oral, 2 Times Daily, First dose on Sat01/11/20 at 2100, For 30 days [facility] Medication administered onsite aripiprazole 10 MG [...] on Sat01/11/20 at 1600, For 30 days [facility] Medication administered onsite hypromellose 0.003 MG/MG Ophthalmic Gel hypromellose (GENTEAL) 0.3 % ophthalmic gel 1 drop hypromellose (GENTEAL) 0.3 % ophthalmic gel 1 drop 04/2019 10:45:00 AM EST 1 [drp] Both Eyes active 1 drop, Both Eyes, 2 Times Daily, First dose (after last modification) on Sat01/11/20 at 1045, For 30 days [facility] Medication administered onsite sodium chloride (preservative [...] 0753, For 30 days [Order 6 End] [facility] Medication administered onsite senna tablet 2 [...] on the third day.
[Order 2 End] [facility] Medication administered onsite Acetaminophen 325 MG [...] mg from all sources in 24 hours.
[facility] Medication administered onsite Ondansetron 4 MG Oral Tablet ondansetron (ZOFRAN) tabl et 4 mg ondansetron (ZOFRAN) tablet 4 mg 01/11/2020 07:53:09 AM EST 4 mg Oral active 4 mg, Oral, Every 8 hours PRN, Nausea, Starting Sat01/11/20 at 0753, For 30 days [facility] Medication administered onsite Magnesium Hydroxide 80 MG/ML Oral Suspen mary magnesium hydroxide (MILK OF MAGNESIA) 400 MG/5ML suspension 45 mL magnesium hydroxide (MILK OF MAGNESIA) 4 00 MG/5ML suspension 45 mL 01/11/2020 07:53:09 AM EST 45 mL Oral active 45 mL, Oral, Nightly PRN, Constipation, Starting Sat01/11/20 at 0753, For 30 days
If serum creatinine > 2 notify provider before administering.
[facility] Medication administered onsite alginic acid 200 MG / Calcium Carbonate 80 MG / magnesium trisilicate 20 MG / Sodium Bicarbonate 70 MG Oral Tablet calcium carbonate (TUMS) chewable tablet 500 mg calcium carbonate (TUMS) chewable tablet 500 mg 2019 07:53:09 AM EST 500 mg Oral active 500 mg, Oral, Daily PRN, Indigestion, Heartburn, Starting Sat01/11/20 at 0753, For 30 days [facility] Medication administered onsite Bisacodyl 10 MG Rectal Suppository bisacodyl (DULCOLAX ) suppository 10 mg bisacodyl (DULCOLAX) suppository 10 mg 01/11/2020 07:53:09 AM EST 10 mg Rectal active 10 mg, Rectal, Every 72 hours PRN, Constipation, Starting Sat01/11/20 at 0753, For 30 days
Hold if patient has had a BM in the past 2 days.
[facility] Medication administered onsite Ibuprofen 200 MG Oral Tablet ibuprofen (MOTRIN) tablet 200 mg ibuprofen (MOTRIN) tablet 200 mg 01/11/2020 07:53:09 AM EST 200 mg Oral acti ve 200 mg, Oral, Every 6 hours PRN, Mild Pain (Pain Scale Score 1-3), Fever, Starting Sat01/11/20 at 0753, For 30 days
Take with food.
[facility] Medication administered onsite Diphenhydramine Hydrochloride 25 MG Oral Capsule diphenhydrAMINE (BENADRYL) capsule 25 mg diphenhydrAMINE (BENADRYL) capsule 25 mg 01/11/2020 07 :53:09 AM EST 25 mg Oral active 25 mg, O ral, Every 6 hours PRN, Itching, Starting Sat01/11/20 at 0753, For 30 days [facility] Medication administered onsite drospirenone 3 MG / Ethinyl Estradiol 0. 02 MG Oral Tablet Drospirenone-Ethinyl Estradiol 3-0.02 MG Oral Tablet (GIANVI) Drospirenone-Ethinyl Estradiol 3-0.02 MG Oral Tablet (GIANVI) 01/04/2020 12:00:00 AM EDT 1 {tbl} Oral active Take 1 tablet [facility] MG Oral Tablet ARIPiprazole 20 MG Oral Tablet (ABILIFY) ARIPiprazole 20 MG Oral Tablet (ABILIFY) 12/27/2019 12:00:00 AM EDT 10 mg Oral active Take 10 mg by mouth Two Times Daily [facility] 24 HR venlafaxine 37.5 MG Extended Relea se Oral Capsule Venlafaxine HCl ER 37.5 MG Oral Capsule Extended Release 24 Hour (EFFEXOR-XR) Venlafaxine HCl ER 37.5 MG Oral Capsule Extended Release 24 Hour (EFFEXOR-XR) 12/27/2019 12:00:00 AM EDT 37.5 mg Oral active Take 37.5 mg by mouth daily Take with 75 mg capsule. LGZ=098.5 mg. [facility] lamotrigine 200 MG Oral Tablet lamoTRIgine 200 MG Oral Tablet (LaMICtal) lamoTRIgine 200 MG Oral Tablet (LaMICtal) 12/27/2019 12:00:00 AM EDT 400 mg Oral active Take 400 mg by mouth Two Times Daily [facility] Hydroxyzine Hydrochloride 25 MG Oral Tab let hydrOXYzine HCl 25 MG Oral Tablet (ATARAX) hydrOXYzine HCl 25 MG Oral Tablet (ATARAX) 12/27/2019 12:00: 00 AM EDT 25 mg Oral active Take 25 mg by mo uth Three times daily [facility] buspirone hydrochloride 10 MG Oral Table t busPIRone HCl 10 MG Oral Tablet (BUSPAR) busPIRone HCl 10 MG Oral Tablet (BUSPAR) 12/23/2019 12:00:00 AM EDT 10 mg Oral active Take 10 mg by mouth Two Times Daily [facility] buspirone hydrochloride 10 MG Oral Tablet Buspirone HCL 12/23/2019 12:00:00 AM EDT ORAL active [facility] ([facility]) 24 HR venlafaxine 75 MG Extended Release Oral Capsule Venlafaxine HCl ER 75 MG Oral Capsule Extended Release 24 Hour (EFFEXOR-XR) Venlafaxine HCl ER 75 MG Oral Capsule Extended Release 24 Hour (EFFEXOR-XR) 12/20/2019 12:00:00 AM EDT 75 mg Oral active Take 75 mg by mouth daily Take with 37.5 mg capsule. BVL=880.5 mg. [facility] aripiprazole 20 MG Oral Tablet Aripiprazole 10/26/2019 12:00:00 AM EDT ORAL active [facility] ([facility]) Insurance Providers Payer name Policy type / Coverage type Policy ID Covered constitution party ID Covered constitution party's relationship to delgado Policy Delgado Plan Information Cigna/MVP Medigap Part B [id number] Family Dependent [id number] BS [place] Medigap Part B [id number] Family Dependent V [id number] BCBS JAYDIANDRA SUDHA PPO 302/307 [id number] FA2 [id number] Medicare [place] Primary [id number] Self 1 [id number] MEDICARE [id number] SP [id number] MEDICARE A [id number] Self [id number] [place] Part B [id number] [id number] Self [id number] MEDICAID [id number] SP [id number] MEDICARE [id number] SP [id number] X71 MEDICAID M [id number] Self [id number] MEDICAID [id number] [facility] [id number] Self [id number] Medicare Part B Medicare Primary [id number] Self [id number] Medicaid Medicaid [id number] Self [id number] Medicare Medicare Primary [id number] Self [id number] ANSI-Medicaid [id number] ANS-Medicare Part B [id number] ANSI-Commercial [id number] ANSI-Medicaid [id number] ANSI-Commercial [id number] [facility]-Medicare Part B [id number] Medicaid [facility] Part B [id number] 40.0 Self [id number] Medicare Part B Medicare Primary [id number] Self [id number] Medicaid Medicaid [id number] S elf [id number] Medicare Medicare Primary [id number] [id number]. [id number] Self [id number] ANSI-Medicaid [id number] ANSI-Medicare Part B [id number] ANSI-Commercial [id number] ANSI-Medicare Part B [id number] ANSI-Commercial [id number] ANSI-Medicaid [id number] ANSI-Medicare Part B [id number] ANSI-Commercial [id number] ANSI-Medicaid [id number] Medicaid [facility] Part B [id number] 40.0 Self [id number] Medicare Part B Medicare Primary [id number] [id number] Self [id number] *NOTFORTODAYSVISIT* SP *NOTFORTODAYSVISIT* Medicaid Medicaid [id number] [id number] S elf [id number] Medicare Medicare Primary [id number] 2.16.840.1.121618.3.227. [id number] Self [id number] ANSI-Medicaid [id number] ANSI-Medicare Part B [id number] ANSI-Commercial [id number] ANSI-Commercial [id number] ANSI-Medicaid [id number] ANSI-Medicare Part B [id number] ANSI-Commercial [id number] ANSI-Medicaid [id number] ANSI-Medicare Part B [id number] ANSI-Medicaid [id number] ANSI-Medicare Part B [id number] ANSI-Commercial [id number] Medicaid [facility] Part B [id number] 40.0 Self [id number] Medicare Part B Medicare Primary [id number] 2.16.840.1.265[id number] Self [id number] MEDICARE [id number] ANSI-Commercial [id number] ANSI-Medicare Part B [id number] ANSI-Medicaid [id number] ANSI-Commercial [id number] ANSI-Medicare Part B [id number] ANSI-Medicaid [id number] ANSI-Commercial [id number] ANSI-Medicaid [id number] ANSI-Medicare Part B [id number] ANSI-Medicaid [id number] ANSI-Medicare Part B [id number] ANSI-Commercial [id number] ANSI-Medicare Part B [id number] ANSI-Commercial [id number] ANSI-Medicaid [id number] Medicaid Medigap Part B [id number] 40.0 Self [id number] Medicare Part B Medicare Primary [id number] Self [id number] ANSI-Medicaid [id number] ANSI-Commercial [id number] ANSI-Medicare Part B [id number] ANSI-Commercial [id number] ANSI-Medicaid [id number] ANSI-Medicare Part B [id number] Medicaid Medigap Part B [id number] 40.0 Self [id number] Medicare Part B Medicare Primary [id number] Self [id number] Medicaid Medigap Part B [id number] 40.0 Self [id number] Medicare Part B Medicare Primary [id number] Self [id number] Medicaid Medigap Part B [id number] 40.0 Self [id number] Medicare Part B Medicare Primary [id number] Self [id number] Medicaid Medigap Part B [id number] 40.0 Self [id number] Medicare Part B Medicare Primary [id number] Self [id number] Medicaid Medigap Part B [id number] 40.0 Self [id number] Medicare Part B Medicare Primary [id number] Self [id number] Medicaid Medigap Part B [id number] 40.0 Self [id number] Medicare Part B Medicare Primary [id number] Self [id number] Medicaid Medigap Part B [id number] 40.0 Self [id number] Medicare Part B Medicare Primary [id number] Self [id number] Medicaid Medigap Part B [id number] 40.0 Self [id number] Medicare Part B Medicare Primary [id number] Self [id number] MEDICAID [id number] SP [id number] Medicare Part B Medicare Primary [id number] Self Medicaid Medicaid [id number] Self 1 1 Medicare Medicare Primary [id number] Self MEDICARE P [id number] S [id number] MEDICAID -O/P [id number] [place]OSS -O/P [id number] 19 [id number] MEDICARE -O/P [id number] 18 [id number] MEDICAID -CLINIC [id number] [place] - CLINIC [id number] MEDICARE - CLINIC [id number] 18 [id number] [facility] MEDICAID [id number] SP [id number] M [id number] MEDICARE [id number] SP [id number] MEDICAID CO [id number] 18 [id number] MEDICARE CO [id number] 18 [id number] [place] [id number] SP [id number] MEDICARE C [id number] S [id number] MEDICAID M [id number] S [id number] MEDICAID [id number] S [id number] MEDICARE [id number] S [id number] MEDICAID [id number] SP [id number] Problems, Conditions, and Diagnoses Code Display Name Description Problem Type Effective Dates Data Source(s) F419 Anxiety disorder, unspecified Anxiety disorder, unspec ified Diagnosis 08/01/2020 12:22:00 PM EDT [facility] F79 Unspecified intellectual disabilities Unspecifie d intellectual disabilities Diagnosis 08/01/2020 12:22:00 PM EDT [facility] F840 Autistic disorder Autistic disorder Diagnosis 08/01/2020 12:22:00 PM EDT 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, not intractable, without status epilepticus Localization-related (focal) (partial) s ymptomatic epilepsy and epileptic syndromes with simple partial seizures, not intractable, without status epilepticus Diagnosis 01/15/2020 07:48:28 PM [facility] Localization-related epilepsy Localization-related epi lepsy Diagnosis 01/11/2020 07:35:00 AM [facility] r51 r51 Diagnosis 01/11/2020 07:35:00 AM [facility] r42 r42 Diagnosis 01/11/2020 07:35:00 AM [facility] g40.89 g40.89 Diagnosis 01/11/2020 07:35:00 AM [facility] g40.009 g40.009 Diagnosis 01/11/2020 07:35:00 AM [facility] Z20.828 Contact with and (suspected) exposure to other viral communicable diseases CONTACT W AND EXPOSURE TO OTH VIRAL COMMUNICABLE DISEASES Di agnosis 01/06/2020 08:00:[address] [facility] M72.2 Plantar fascial fibromatosis Plantar fascial fibromato sis Problem 10/25/2020 12:00:00 AM EDT [facility] ([facility] [id number] Liver enzymes abnormal Liver enzymes abnormal Problem 05/26/2020 12:00:00 AM EDT [facility] ([facility]) J30.9 Allergic rhinitis Allergic sinusitis Problem 04/27/2020 12:00:00 AM EST eCW1 ([facility]) Surgeries/Procedures Procedure Description Date Indications Data Source(s) OFFICE OUTPATIENT VISIT 25 MINUTES 11/28/2020 12:00:00 AM EDT [facility] ([facility]) OFFICE OUTPATIENT VISIT 25 MINUTES 11/25/2020 12:00:00 AM EDT [facility] ([facility], ) Spirometry 11/10/2020 12:00:00 AM EDT [facility] ([facility], ) Plethysmography Determination Lung Volumes & Per Airway Resi st 11/10/2020 12:00:00 AM EDT [facility] ([facility]) OFFICE OUTPATIENT VISIT 10 MINUTES 10/25/2020 12:00:00 AM EDT [facility] ([facility] OFFICE OUTPATIENT VISIT 25 MINUTES 10/24/2020 12:00:00 AM EDT [facility] ([facility]) OFFICE OUTPATIENT VISIT 25 MINUTES 10/06/2020 12:00:00 AM EDT [facility] ([facility]) OFFICE OUTPATIENT VISIT 25 MINUTES 09/06/2020 12:00:00 AM EDT [facility] ([facility]) Ercp For Removal Stone(S) Biliary/Pancreatic Ducts 08/19/2020 12:00:00 AM EDT [facility] ([facility]) Ercp Removal & Exchange Stents Biliary/Pancreatic Duct 08/19/2020 12:00:00 AM EDT [facility] ([facility]) ENDOSCOPIC CATHJ BILIARY DUCTAL SYSTEM RS&I 08/19/2020 12:00:00 AM EDT [facility] ([facility]) OFFICE OUTPATIENT VISIT 25 MINUTES 08/01/2020 12:00:00 AM EDT [facility] ([facility]) OFFICE OUTPATIENT VISIT 25 MINUTES 07/22/2020 12:00:00 AM EDT [facility] ([facility]) OFFICE OUTPATIENT VISIT 10 MINUTES 07/19/2020 12:00:00 AM EDT [facility] ([facility] Ercp For Removal Stone(S) Biliary/Pancreatic Ducts 06/23/2020 12:00:00 AM EDT [facility] ([facility]) Ercp Removal & Exchange Stents Biliary/Pancreatic Duct 06/23/2020 12:00:00 AM EDT [facility] ([facility]) ENDOSCOPIC CATHJ BILIARY DUCTAL SYSTEM RS&I 06/23/2020 12:00:00 AM EDT [facility] ([facility]) OFFICE OUTPATIENT NEW 45 MINUTES 06/16/2020 12:00:00 A M EDT [facility] ([facility]) Bronchospasm Evaluation 06/13/2020 12:00:00 AM EDT [facility] ([facility]) Plethysmography Determination Lung Volumes & Per Airway Resi st 06/13/2020 12:00:00 AM EDT [facility] ([facility] ) DIFFUSING CAPACITY 06/13/2020 12:00:00 AM EDT [facility] ([facility], ) OFFICE OUTPATIENT VISIT 25 MINUTES 06/13/2020 12:00:00 AM EDT [facility] ([facility], ) PHYSICIAN TELEPHONE EVALUATION 5-10 MIN 05/03/2020 12: 00:00 AM EST [facility] ([facility], ) EEG VIDEO MONITORING <td>EEG VIDEO MONITORING</td ><td>Routine</td><td>01/15/2020 3:10 PM EST</td><td></td><td></td> 01/15/2020 03:10:00 PM [facility] LAMOTRIGINE <td>LAMOTRIGINE</td><td>Rout ine</td><td>01/13/2020 5:41 AM EST</td><td></td><td> </td> 01/13/2020 05:41:00 AM [facility] LAMOTRIGINE <td>LAMOTRIGINE</td><td>Rout ine</td><td>01/11/2020 12:47 PM EST</td><td></td><td> </td> 01/11/2020 12:47:00 PM [facility] QUANTITATION DRUG NOT ELSEWHERE SPECIFIED <td>LAMOTRIGINE</td><td>Routine</td><td>01/11/2020 11:48 AM EST</td><td></td><td> </td> 01/11/2020 11:48:00 AM [facility] GONADOTROPIN CHORIONIC QUANTITATIVE <td>BETA HCG, QUANT</td><td>Routine</td><td>01/11/2020 11:43 AM EST</td><td></td><td> </td> 01/11/2020 11:43:00 AM [facility] Results ID Date Data Source [id number] 12/01/2020 03:27:00 AM EDT [facility] Name Value Range Interpretation Code Description Data Mera rce(s) Supporting Document(s) SARS-CoV-2 (COVID 19) NEGATIVE - SARS-CoV-2 (COVID19) [place] This lab was ordered by [facility] a nd reported by [facility]. ID Date Data Source [id number] 11/08/2020 11:45:00 AM EDT [facility] ([facility], ) Name Value Range Interpretation Code Description Data Mera rce(s) Supporting Document(s) Levetiracetam [Mass/volume] in Serum or Plasma 12.6 ug/mL 10.0-40.0 [facility] ([facility], ) This test was developed and its performa nce characteristics determined by [facility]. It has not been cleared or approved by the Food and Drug Administration. Lamotrigine [Mass/volume] in Serum or Plasma 12.1 ug/mL 2.0-20.0 [facility] ([facility], ) Detection Limit = 1.0 Performed at: [facility] [address] [id number] [address] [place]patch Supervisor: Maida Weber MD, Phone: [phone] ID Date Data Source [id number] 11/08/2020 11:45:00 AM EDT [facility] ([facility], ) Name Value Range Interpretation Code Description Data Mera rce(s) Supporting Document(s) Glucose, Fasting 69 mg/dL 70-100 [facility] ([facility], ) Blood Urea Nitrogen 13 mg/dL 7-18 [facility] ([facility], ) Creatinine For GFR 0.80 mg/dL 0.55-1.30 [facility] ([facility], ) Glomerular Filtration Rate Laboratory [facility], ) <content>Units are mL/min/1.73 m2</content>
<content></content>
<content>Chronic Kidney Disease Staging per NKF:</content>
<content></content>
<content>Stage I & II GFR >=60 Normal to Mildly Decreased</content>
<content>Stage III GFR 30- 59 Moderately Decreased</content>
<content>Stage IV GFR 15-29 Severely Decreased</content>
<content>Stage V GFR <15 Very Little GFR Left</content>
<content>ESRD GFR <15 on PROGRAM SPECIALIST</content>
<content></content> Sodium Level 139 meq/L 136-145 [facility] ([facility], ) Chloride Level 106 meq/L 98-107 [facility] ([facility]) Potassium Serum 5.0 meq/L 3.5-5.1 [facility] ([facility]) Anion Gap 5 meq/L 8-16 [facility] ([facility]) Carbon Dioxide Level 28 meq/L 21-32 [facility] ([facility]) Calcium Level 9.7 mg/dL 8.5-10.1 [facility] ([facility]) Ast/Sgot 15 U/L 7-37 [facility] ([facility]) Alt/SGPT 26 U/L 12-78 [facility] ([facility]) Bilirubin,Total 0.4 mg/dL 0.2-1.0 [facility] ([facility]) Alkaline Phosphatase 206 U/L 45-117 [facility] ([facility]) Albumin 3.8 GM/DL 3.2-5.2 [facility] ([facility]) Total Protein 7.3 GM/DL 6.4-8.2 [facility] ([facility]) Albumin/Globulin Ratio 1.1 1.2-2.2 [facility] ([facility]) ID Date Data Source [id number] 11/08/2020 11:45:00 AM EDT [facility] ([facility]) Name Value Range Interpretation Code Description Data Mera rce(s) Supporting Document(s) White Blood Count 8.3 10 4.0-10.0 [facility] ([facility], ) Red Blood Count 5.09 10 4.00-5.40 [facility] ([facility]) Hemoglobin 13.7 g/dL 12.0-15.5 [facility] ([facility]) Hematocrit 43.1 % 36.0-47.0 [facility] ([facility]) Mean Corpuscular HGB Conc 31.8 g/dL 32.0-36.5 [facility] ([facility]) Mean Corpuscular Hemoglobin 26.9 pg 27.0-33.0 [facility] ([facility]) Mean Corpuscular Volume 84.7 fl 80.0-96.0 M [facility] ([facility]) Platelet Count, Automated 332 10 150-450 [facility] ([facility]) Red Cell Distribution Width 12.8 % 11.5-14.5 [facility] ([facility]) Neutrophils % 76.8 % 36.0-66.0 [facility] ([facility]) Lymph % 12.4 % 24.0-44.0 [facility] ([facility]) Grimes % 7.8 % 2.0-8.0 [facility] ([facility]) Eos % 1.8 % 0.0-3.0 [facility] ([facility]) Immature Granulocyte % 0.6 % 0-3.0 [facility] Baso % 0.6 % 0.0-1.0 [facility] ([facility]) Nucleated Red Blood Cell % 0.0 % 0-0 [facility] ([facility]) Neutrophils # 6.3 10 1.5-8.5 [facility] ([facility]) Grimes # 0.6 10 0.0-0.8 [facility] ([facility]) Lymph # 1.0 10 1.5-5.0 [facility] ([facility]) Eos # 0.2 10 0.0-0.5 [facility] ([facility]) Baso # 0.1 10 0.0-0.2 [facility] ([facility]) ID Date Data Source [id number] 09/19/2020 08:33:00 AM EDT [facility] ([facility]) Name Value Range Interpretation Code Description Data Mera rce(s) Supporting Document(s) Gamma glutamyl transferase [Enzymatic activity/volume] in Serum or Plasma 73 U/L 5-55 Above high normal [facility] ([facility], ) <content>note:<[email or web address]:[email or web address]> </content>
<content></content> ID Date Data Source [id number] 09/19/2020 08:33:00 AM EDT [facility] ([facility], ) Name Value Range Interpretation Code Description Data Mera rce(s) Supporting Document(s) Ast/Sgot 15 U/L 7-37 Normal (applies to non-numeric resul ts) [facility] ([facility], ) Alt/SGPT 22 U/L 12-78 Normal (applies to non-numeric resul ts) [facility] ([facility]) Alkaline Phosphatase 183 U/L 45-117 Above high normal [facility] ([facility]) Bilirubin,Total 0.6 mg/dL 0.2-1.0 Normal (applies to non-numeric results) [facility] ([facility]) Albumin 3.5 GM/DL 3.2-5.2 Normal (applies to non-numeric resul ts) [facility] ([facility]) Bilirubin,Direct 0.2 mg/dL 0.0-0.2 Normal (applies to non-numeric results) [facility] ([facility]) Total Protein 6.8 GM/DL 6.4-8.2 Normal (applies to non-numeric re sults) [facility] ([facility]) Albumin/Globulin Ratio 1.1 1.2-2.2 Below low normal [facility] ([facility]) ID Date Data Source [id number] 09/19/2020 08:33:00 AM EDT [facility] Name Value Range Interpretation Code Description Data Mera rce(s) Supporting Document(s) White Blood Count 5.2 10 4.0-10.0 Normal (applies to non-numeri c results) [facility] ([facility]) Hemoglobin 13.1 g/dL 12.0-15.5 Normal (applies to non-numeric resul ts) [facility] ([facility]) Red Blood Count 4.88 10 4.00-5.40 Normal (applies to non-numeric results) [facility] ([facility], ) Mean Corpuscular Hemoglobin 26.8 pg 27.0-33.0 Below low normal [facility] ([facility]) Mean Corpuscular Volume 84.4 fl 80.0-96.0 Normal ( applies to non-numeric results) [facility] ([facility]) Hematocrit 41.2 % 36.0-47.0 Normal (applies to non-numeric resul ts) [facility] ([facility]) Mean Corpuscular HGB Conc 31.8 g/dL 32.0-36.5 Below low normal [facility] ([facility]) Platelet Count, Automated 248 10 150-450 Normal (applies to non-numeric results) [facility] ([facility]) Red Cell Distribution Width 13.2 % 11.5-14.5 Norm al (applies to non-numeric results) [facility] ([facility]) Neutrophils % 73.7 % 36.0-66.0 Above high normal [facility] ([facility]) Lymph % 12.9 % 24.0-44.0 Below low normal [facility] ( [facility]) Grimes % 8.7 % 2.0-8.0 Above high normal [facility] ([facility]) Eos % 3.3 % 0.0-3.0 Above high normal [facility] ([facility]) Baso % 0.8 % 0.0-1.0 Normal (applies to non-numeric resul ts) [facility] ([facility]) Immature Granulocyte % 0.6 % 0-3.0 Normal (applies to non-n umeric results) [facility] ([facility]) Lymph # 0.7 10 1.5-5.0 Below low normal [facility] ( [facility]) Neutrophils # 3.8 10 1.5-8.5 Normal (applies to non-numeric re sults) [facility] ([facility]) Nucleated Red Blood Cell % 0.0 % 0-0 Normal (applies to n on-numeric results) [facility] ([facility]) Eos # 0.2 10 0.0-0.5 Normal (applies to non-numeric resul ts) [facility]) Grimes # 0.5 10 0.0-0.8 Normal (applies to non-numeric resul ts) [facility]) Baso # 0.0 10 0.0-0.2 Normal (applies to non-numeric resul ts) [facility]) ID Date Data Source [id number] 08/19/2020 05:03:00 AM EDT [facility]) Name Value Range Interpretation Code Description Data Mera rce(s) Supporting Document(s) Microscopic observation [Identifier] in Unspecified specimen by Non- gynecological cytology method Laboratory test result [facility]) SPECIMEN: Common bile duct br [place] in vial received SPECIMEN ADEQUACY: Satisfactory for evaluation CATEGORIZATION: No Malignancy identified DESCRIPTIONS: Reactive ductal cells noted. COMMENTS: 08/22/2020 - 742 Signed COLEEN BRAVO(ASCP) 08/22/2020 0743 (Prelim) Signed LEAH JIMENEZ MD 08/22/2020 0911 ID Date Data Source [id number] 08/18/2020 09:05:00 AM EDT [facility]) Name Value Range Interpretation Code Description Data Mera rce(s) Supporting Document(s) Creatinine For GFR 0.77 mg/dL 0.55-1.30 Normal (applies to non -numeric results) [facility] ([facility]) Glomerular Filtration Rate Laboratory test result Normal (applies to non- numeric results) [facility]) <content>Units are mL/min/1.73 m2</content>
<content></content>
<content>Chronic Kidney Disease Staging per NKF:</content>
<content></content>
<content>Stage I & II GFR >=60 Normal to Mildly Decreased</content>
<content>Stage III GFR 30- 59 Moderately Decreased</content>
<content>Stage IV GFR 15-29 Severely Decreased</content>
<content>Stage V GFR <15 Very Little GFR Left</content>
<content>ESRD GFR <15 on PROGRAM SPECIALIST</content>
<content></content> ID Date Data Source [id number] 08/18/2020 09:05:00 AM EDT [facility]) Name Value Range Interpretation Code Description Data Mera rce(s) Supporting Document(s) Urea nitrogen [Mass/volume] in Serum or Plasma 12 mg/dL 7 -18 Normal (applies to non-numeric results) [facility]) <content>note:<nlbl:demographic_changed> </content>
<content></content> ID Date Data Source [id number] 08/18/2020 09:05:00 AM EDT [facility]) Name Value Range Interpretation Code Description Data Mera rce(s) Supporting Document(s) Inr 0.93 Normal (applies to non-numeric resul ts) [facility] ([facility]) THERAPUTIC HUMAN INR VALUES INDICATIONS NORMAL RANGES PROPHYLAXIS/TREATMENT OF: VENOUS THROMBOSIS 2.0-3.0 PULMONARY EMBOLISM 2.0-3.0 PREVENTION OF SYSTEMIC EMBOLISM FROM: TISSUE HEART VALVES 2.0-3.0 ACUTE MYOCARDIAL INFARCTION 2.0-3.0 VALVULAR HEART DISEASE 2.0-3.0 ATRIAL FIBRILLATION 2.0-3.0 MECHANICAL VALVES(HIGH RISK) 2.5-3.5 RECURRENT MYOCARDIAL INFARCTION 2.5-3.5 Prothrombin Time 12.7 s 12.5-14.3 Normal (applies to non-numeric results) [facility]) Partial Thromboplastin Time 37.4 s 24.2-38.5 Norm al (applies to non-numeric results) [facility]) ID Date Data Source [id number] 08/18/2020 09:05:00 AM EDT [facility]) Name Value Range Interpretation Code Description Data Mera rce(s) Supporting Document(s) Red Blood Count 5.23 10 4.00-5.40 Normal (applies to non-numeric results) [facility]) White Blood Count 7.1 10 4.0-10.0 Normal (applies to non-numeri c results) [facility]) Mean Corpuscular Volume 84.3 fl 80.0-96.0 Normal ( applies to non-numeric results) [facility] ([facility]) Hematocrit 44.1 % 36.0-47.0 Normal (applies to non-numeric resul ts) [facility]) Hemoglobin 14.1 g/dL 12.0-15.5 Normal (applies to non-numeric resul ts) [facility]) Mean Corpuscular Hemoglobin 27.0 pg 27.0-33.0 Norm al (applies to non-numeric results) [facility]) Mean Corpuscular HGB Conc 32.0 g/dL 32.0-36.5 Normal (applies to non-numeric results) [facility]) Red Cell Distribution Width 12.6 % 11.5-14.5 Norm al (applies to non-numeric results) [facility] ([facility]) Platelet Count, Automated 280 10 150-450 Normal (applies to non-numeric results) [facility]) Neutrophils % 77.7 % 36.0-66.0 Above high normal [facility] ([facility]) Lymph % 10.6 % 24.0-44.0 Below low normal [facility] ( [facility]) Grimes % 7.7 % 2.0-8.0 Normal (applies to non-numeric resul ts) [facility]) Eos % 2.7 % 0.0-3.0 Normal (applies to non-numeric resul ts) [facility]) Nucleated Red Blood Cell % 0.0 % 0-0 Normal (applies to n on-numeric results) [facility]) Baso % 0.7 % 0.0-1.0 Normal (applies to non-numeric resul ts) [facility]) Immature Granulocyte % 0.6 % 0-3.0 Normal (applies to non-n umeric results) [facility] ([facility]) Lymph # 0.8 10 1.5-5.0 Below low normal [facility] ( [facility]) Neutrophils # 5.6 10 1.5-8.5 Normal (applies to non-numeric re sults) [facility] ([facility]) Grimes # 0.6 10 0.0-0.8 Normal (applies to non-numeric resul ts) [facility] ([facility]) Baso # 0.1 10 0.0-0.2 Normal (applies to non-numeric resul ts) [facility] ([facility]) Eos # 0.2 10 0.0-0.5 Normal (applies to non-numeric resul ts) [facility] ([facility]) ID Date Data Source [id number] 08/18/2020 09:05:00 AM EDT [facility]) Name Value Range Interpretation Code Description Data Mera rce(s) Supporting Document(s) Ast/Sgot 12 U/L 7-37 Normal (applies to non-numeric resul ts) [facility] ([facility]) Alt/SGPT 21 U/L 12-78 Normal (applies to non-numeric resul ts) [facility] ([facility]) Alkaline Phosphatase 234 U/L 45-117 Above high normal [facility] ([facility]) Bilirubin,Total 0.7 mg/dL 0.2-1.0 Normal (applies to non-numeric results) [facility] ([facility]) Total Protein 7.5 GM/DL 6.4-8.2 Normal (applies to non-numeric re sults) [facility] ([facility]) Bilirubin,Direct 0.2 mg/dL 0.0-0.2 Normal (applies to non-numeric results) [facility] ([facility]) Albumin 3.8 GM/DL 3.2-5.2 Normal (applies to non-numeric resul ts) [facility] ([facility]) Albumin/Globulin Ratio 1.0 1.2-2.2 Below low normal [facility] ([facility]) ID Date Data Source [id number] 08/18/2020 09:02:00 AM EDT [facility] ([facility], ) Name Value Range Interpretation Code Description Data Mrea rce(s) Supporting Document(s) Levetiracetam [Mass/volume] in Serum or Plasma 20.9 ug/mL 10.0-40.0 [facility] ([facility], ) This test was developed and its performa nce characteristics determined by [facility]. It has not been cleared or approved by the Food and Drug Administration. Lamotrigine [Mass/volume] in Serum or Plasma 13.1 ug/mL 2.0-20.0 [facility] ([facility]) Detection Limit = 1.0 Performed at: [address] [id number] 61 City Dispatch Supervisor: Maida Weber MD, Phone: [phone] ID Date Data Source [id number] 08/18/2020 09:02:00 AM EDT [facility] ([facility], ) Name Value Range Interpretation Code Description Data Mera rce(s) Supporting Document(s) Blood Urea Nitrogen 11 mg/dL 7-18 [facility] ([facility], ) Glucose, Fasting 72 mg/dL 70-100 [facility] ([facility]) Glomerular Filtration Rate Laboratory test result [facility] ([facility]) <content>Units are mL/min/1.73 m2</content>
<content></content>
<content>Chronic Kidney Disease Staging per NKF:</content>
<content></content>
<content>Stage I & II GFR >=60 Normal to Mildly Decreased</content>
<content>Stage III GFR 30- 59 Moderately Decreased</content>
<content>Stage IV GFR 15-29 Severely Decreased</content>
<content>Stage V GFR <15 Very Little GFR Left</content>
<content>ESRD GFR <15 on PROGRAM SPECIALIST</content>
<content></content> Creatinine For GFR 0.78 mg/dL 0.55-1.30 [facility] ([facility], ) Potassium Serum 4.8 meq/L 3.5-5.1 [facility] ([facility]) Sodium Level 141 meq/L 136-145 [facility] ([facility]) Chloride Level 106 meq/L 98-107 [facility] ([facility]) Anion Gap 4 meq/L 8-16 [facility] ([facility]) Carbon Dioxide Level 31 meq/L 21-32 [facility] ([facility]) Calcium Level 9.7 mg/dL 8.5-10.1 [facility] ([facility]) Ast/Sgot 11 U/L 7-37 [facility] ([facility]) Alt/SGPT 22 U/L 12-78 [facility] ([facility]) Alkaline Phosphatase 236 U/L 45-117 [facility] ([facility]) Total Protein 7.4 GM/DL 6.4-8.2 [facility] ([facility]) Bilirubin,Total 0.7 mg/dL 0.2-1.0 [facility] ([facility]) Albumin 3.7 GM/DL 3.2-5.2 [facility] ([facility]) Albumin/Globulin Ratio 1.0 1.2-2.2 [facility] ([facility]) ID Date Data Source [id number] 08/18/2020 09:02:00 AM EDT [facility] ([facility]) Name Value Range Interpretation Code Description Data Mera rce(s) Supporting Document(s) White Blood Count 7.1 10 4.0-10.0 [facility] ([facility], ) Hemoglobin 13.6 g/dL 12.0-15.5 [facility] ([facility]) Red Blood Count 5.12 10 4.00-5.40 [facility] ([facility]) Mean Corpuscular Volume 83.8 fl 80.0-96.0 M [facility] ([facility]) Hematocrit 42.9 % 36.0-47.0 [facility] ([facility]) Mean Corpuscular HGB Conc 31.7 g/dL 32.0-36.5 [facility] ([facility]) Red Cell Distribution Width 12.6 % 11.5-14.5 [facility] ([facility]) Mean Corpuscular Hemoglobin 26.6 pg 27.0-33.0 [facility] ([facility]) Platelet Count, Automated 289 10 150-450 [facility] ([facility]) Neutrophils % 79.0 % 36.0-66.0 [facility] ([facility]) Grimes % 6.8 % 2.0-8.0 [facility] ([facility]) Lymph % 10.1 % 24.0-44.0 [facility] ([facility]) Eos % 2.5 % 0.0-3.0 [facility] ([facility]) Baso % 0.8 % 0.0-1.0 [facility] ([facility]) Immature Granulocyte % 0.8 % 0-3.0 [facility] ([facility]) Nucleated Red Blood Cell % 0.0 % 0-0 [facility] ([facility]) Grimes # 0.5 10 0.0-0.8 [facility] ([facility]) Lymph # 0.7 10 1.5-5.0 [facility] ([facility]) Neutrophils # 5.6 10 1.5-8.5 [facility] ([facility]) Baso # 0.1 10 0.0-0.2 [facility] ([facility]) Eos # 0.2 10 0.0-0.5 [facility] ([facility]) ID Date Data Source [id number] 08/14/2020 10:45:00 AM EDT [facility] Name Value Range Interpretation Code Description Data Mera rce(s) Supporting Document(s) SARS-CoV-2 (COVID-19) RNA [Presence] in Respiratory specimen by GITA with probe detection Not Detected [facility] This lab was ordered by [facility] and reported by [facility]. ID Date Data Source [id number] 06/29/2020 08:47:00 AM EDT [facility] ([facility]) Name Value Range Interpretation Code Description Data Mera rce(s) Supporting Document(s) Levetiracetam [Mass/volume] in Serum or Plasma 16.2 ug/mL 10.0-40.0 [facility] ([facility]) This test was developed and its performa nce characteristics determined by [facility]. It has not been cleared or approved by the Food and Drug Administration. Lamotrigine [Mass/volume] in Serum or Plasma 10.1 ug/mL 2.0-20.0 [facility] ([facility], ) Testing on this sample was performed by homogeneous enzyme immunoassay. Detection Limit = 1.0 Performed at: [facility] [address] [id number] 61 City Dispatch Supervisor: Maida Weber MD, Phone: [phone] Performed at: [facility] [address] [place] [address] [id number] 529 City Dispatch Supervisor: Nilam Mendoza [facility], Phone: [phone] ID Date Data Source [id number] 06/29/2020 08:47:00 AM EDT [facility] ([facility]) Name Value Range Interpretation Code Description Data Mera rce(s) Supporting Document(s) Glucose, Fasting 92 mg/dL 70-100 [facility] ([facility], ) Blood Urea Nitrogen 14 mg/dL 7-18 [facility] ([facility]) Creatinine For GFR 0.74 mg/dL 0.55-1.30 [facility] ([facility]) Glomerular Filtration Rate Laboratory test result [facility] ([facility]) <content>Units are mL/min/1.73 m2</content>
<content></content>
<content>Chronic Kidney Disease Staging per NKF:</content>
<content></content>
<content>Stage I & II GFR >=60 Normal to Mildly Decreased</content>
<content>Stage III GFR 30- 59 Moderately Decreased</content>
<content>Stage IV GFR 15-29 Severely Decreased</content>
<content>Stage V GFR <15 Very Little GFR Left</content>
<content>ESRD GFR <15 on PROGRAM SPECIALIST</content>
<content></content> Potassium Serum 4.1 meq/L 3.5-5.1 [facility] ([facility], ) Sodium Level 141 meq/L 136-145 [facility] ([facility]) Carbon Dioxide Level 28 meq/L 21-32 [facility] ([facility]) Chloride Level 107 meq/L 98-107 [facility] ([facility]) Calcium Level 9.3 mg/dL 8.5-10.1 [facility] ([facility]) Ast/Sgot 11 U/L 7-37 [facility] ([facility]) Anion Gap 6 meq/L 8-16 [facility] ([facility]) Alkaline Phosphatase 286 U/L 45-117 [facility] ([facility]) Alt/SGPT 19 U/L 12-78 [facility] ([facility]) Total Protein 7.4 GM/DL 6.4-8.2 [facility] ([facility]) Bilirubin,Total 0.4 mg/dL 0.2-1.0 [facility] ([facility]) Albumin 3.5 GM/DL 3.2-5.2 [facility] ([facility]) Albumin/Globulin Ratio 0.9 1.2-2.2 [facility] ([facility]) ID Date Data Source [id number] 06/29/2020 08:47:00 AM EDT [facility] ([facility]) Name Value Range Interpretation Code Description Data Mera rce(s) Supporting Document(s) Red Blood Count 4.84 10 4.00-5.40 [facility] ([facility]) Hemoglobin 13.6 g/dL 12.0-15.5 [facility] ([facility]) White Blood Count 7.3 10 4.0-10.0 [facility] ([facility]) Hematocrit 42.2 % 36.0-47.0 [facility] ([facility]) Mean Corpuscular Volume 87.2 fl 80.0-96.0 [facility] ([facility]) Mean Corpuscular Hemoglobin 28.1 pg 27.0-33.0 [facility] ([facility]) Mean Corpuscular HGB Conc 32.2 g/dL 32.0-36.5 [facility] ([facility]) Platelet Count, Automated 278 10 150-450 [facility] ([facility]) Red Cell Distribution Width 12.0 % 11.5-14.5 [facility] ([facility], ) Lymph % 9.3 % 24.0-44.0 [facility] Neutrophils % 78.1 % 36.0-66.0 [facility] ([facility], ) Grimes % 7.8 % 2.0-8.0 [facility] Eos % 3.3 % 0.0-3.0 [facility] ([facility], ) Baso % 0.7 % 0.0-1.0 [facility] Immature Granulocyte % 0.8 % 0-3.0 [facility] Nucleated Red Blood Cell % 0.0 % 0-0 [facility] ([facility]) Lymph # 0.7 10 1.5-5.0 [facility] ([facility]) Neutrophils # 5.7 10 1.5-8.5 [facility] ([facility], ) Grimes # 0.6 10 0.0-0.8 [facility] ([facility], ) Eos # 0.2 10 0.0-0.5 [facility] ([facility]) Baso # 0.1 10 0.0-0.2 [facility] ([facility]) ID Date Data Source [id number] 06/18/2020 09:35:00 AM EDT [facility] Name Value Range Interpretation Code Description Data Mera rce(s) Supporting Document(s) SARS-CoV-2 (COVID-19) RNA [Presence] in Respiratory specimen by GITA with probe detection Not Detected [facility] This lab was ordered by [facility] and reported by [facility]. ID Date Data Source [id number] 05/31/2020 08:29:00 AM EDT [facility] ([facility], ) Name Value Range Interpretation Code Description Data Mera rce(s) Supporting Document(s) Lamotrigine [Mass/volume] in Serum or Plasma 10.1 ug/mL 2.0-20.0 [facility] Testing on this sample was performed by homogeneous enzyme immunoassay. Detection Limit = 1.0 Performed at: [address] [id number] 61 City Dispatch Supervisor: Maida Weber MD, Phone: [phone] Performed at: [facility] [address] [place] [address] [id number] City Dispatch Supervisor: Nilam Mendoza [facility], Phone: [phone] Levetiracetam [Mass/volume] in Serum or Plasma 32.1 ug/mL 10.0-40.0 [facility] ([facility], ) This test was developed and its performa nce characteristics determined by [facility]. It has not been cleared or approved by the Food and Drug Administration. ID Date Data Source [id number] 05/31/2020 08:29:00 AM EDT [facility]) Name Value Range Interpretation Code Description Data Mera rce(s) Supporting Document(s) Glucose, Fasting 100 mg/dL 70-100 [facility] ([facility]) Blood Urea Nitrogen 10 mg/dL 7-18 [facility] ([facility], ) Creatinine For GFR 0.69 mg/dL 0.55-1.30 [facility] ([facility]) Glomerular Filtration Rate Laboratory test result [facility] ([facility]) <content>Units are mL/min/1.73 m2</content>
<content></content>
<content>Chronic Kidney Disease Staging per NKF:</content>
<content></content>
<content>Stage I & II GFR >=60 Normal to Mildly Decreased</content>
<content>Stage III GFR 30- 59 Moderately Decreased</content>
<content>Stage IV GFR 15-29 Severely Decreased</content>
<content>Stage V GFR <15 Very Little GFR Left</content>
<content>ESRD GFR <15 on PROGRAM SPECIALIST</content>
<content></content> Sodium Level 141 meq/L 136-145 [facility] ([facility], ) Potassium Serum 3.9 meq/L 3.5-5.1 [facility] ([facility]) Carbon Dioxide Level 31 meq/L 21-32 [facility] ([facility]) Chloride Level 107 meq/L 98-107 [facility] ([facility], ) Anion Gap 3 meq/L 8-16 [facility] ([facility]) Calcium Level 9.0 mg/dL 8.5-10.1 [facility] ([facility]) Ast/Sgot 54 U/L 7-37 [facility] ([facility]) Alt/SGPT 93 U/L 12-78 [facility] ([facility]) Alkaline Phosphatase 343 U/L 45-117 [facility] ([facility]) Total Protein 6.6 GM/DL 6.4-8.2 [facility] ([facility]) Bilirubin,Total 0.4 mg/dL 0.2-1.0 [facility] ([facility]) Albumin 3.1 GM/DL 3.2-5.2 [facility] ([facility]) Albumin/Globulin Ratio 0.9 1.2-2.2 [facility] ([facility]) ID Date Data Source [id number] 05/31/2020 08:29:00 AM EDT [facility] ([facility]) Name Value Range Interpretation Code Description Data Mera rce(s) Supporting Document(s) Red Blood Count 4.70 10 4.00-5.40 [facility] ([facility]) White Blood Count 6.2 10 4.0-10.0 [facility] ([facility]) Hemoglobin 13.2 g/dL 12.0-15.5 [facility] ([facility], ) Hematocrit 40.9 % 36.0-47.0 [facility] ([facility], ) Mean Corpuscular Volume 87.0 fl 80.0-96.0 [facility] ([facility], ) Mean Corpuscular HGB Conc 32.3 g/dL 32.0-36.5 [facility] ([facility]) Mean Corpuscular Hemoglobin 28.1 pg 27.0-33.0 [facility] ([facility]) Red Cell Distribution Width 12.6 % 11.5-14.5 [facility] ([facility]) Platelet Count, Automated 241 10 150-450 [facility] ([facility]) Lymph % 12.1 % 24.0-44.0 [facility] ([facility], ) Neutrophils % 73.1 % 36.0-66.0 [facility] ([facility], ) Grimes % 9.2 % 2.0-8.0 [facility] ([facility]) Eos % 3.4 % 0.0-3.0 [facility] ([facility]) Baso % 0.6 % 0.0-1.0 [facility] ([facility]) Nucleated Red Blood Cell % 0.0 % 0-0 [facility] Immature Granulocyte % 1.6 % 0-3.0 [facility] ([facility]) Lymph # 0.8 10 1.5-5.0 [facility] ([facility]) Neutrophils # 4.6 10 1.5-8.5 [facility] ([facility]) Grimes # 0.6 10 0.0-0.8 [facility] ([facility]) Eos # 0.2 10 0.0-0.5 [facility] ([facility]) Baso # 0.0 10 0.0-0.2 [facility] ([facility]) ID Date Data Source [id number] 05/03/2020 07:31:00 AM EST [facility] ([facility]) Name Value Range Interpretation Code Description Data Mera rce(s) Supporting Document(s) Levetiracetam [Mass/volume] in Serum or Plasma 7.9 ug/mL 10.0-40.0 [facility] ([facility], ) This test was developed and its performa nce characteristics determined by [facility]. It has not been cleared or approved by the Food and Drug Administration. Lamotrigine [Mass/volume] in Serum or Plasma 7.2 ug/mL 2.0-20.0 [facility] ([facility], ) Testing on this sample was performed by homogeneous enzyme immunoassay. Detection Limit = 1.0 Performed at: [address] [id number] 61 [place] Dispatch Supervisor: Maida Weber MD, Phone: [phone] Performed at: [facility] [address] [id number] 820 City Dispatch Supervisor: Nilam Mendoza [facility], Phone: [phone] ID Date Data Source [id number] 05/03/2020 07:31:00 AM EST [facility] ([facility]) Name Value Range Interpretation Code Description Data Mera rce(s) Supporting Document(s) Glucose, Fasting 74 mg/dL 70-100 [facility] ([facility], ) Blood Urea Nitrogen 13 mg/dL 7-18 [facility] ([facility], ) Creatinine For GFR 0.81 mg/dL 0.55-1.30 [facility] ([facility]) Sodium Level 142 meq/L 136-145 [facility] ([facility]) Glomerular Filtration Rate Laboratory test result [facility] ([facility]) <content>Units are mL/min/1.73 m2</content>
<content></content>
<content>Chronic Kidney Disease Staging per NKF:</content>
<content></content>
<content>Stage I & II GFR >=60 Normal to Mildly Decreased</content>
<content>Stage III GFR 30- 59 Moderately Decreased</content>
<content>Stage IV GFR 15-29 Severely Decreased</content>
<content>Stage V GFR <15 Very Little GFR Left</content>
<content>ESRD GFR <15 on PROGRAM SPECIALIST</content>
<content></content> Potassium Serum 4.1 meq/L 3.5-5.1 [facility] ([facility]) Chloride Level 105 meq/L 98-107 [facility] ([facility]) Anion Gap 8 meq/L 8-16 [facility] ([facility]) Calcium Level 9.2 mg/dL 8.5-10.1 [facility] ([facility]) Carbon Dioxide Level 29 meq/L 21-32 [facility] ([facility]) Alt/SGPT 38 U/L 12-78 [facility] ([facility]) Ast/Sgot 22 U/L 7-37 [facility] ([facility]) Alkaline Phosphatase 263 U/L 45-117 [facility] ([facility]) Bilirubin,Total 0.5 mg/dL 0.2-1.0 [facility] ([facility]) Total Protein 6.8 GM/DL 6.4-8.2 [facility] ([facility]) Albumin 3.6 GM/DL 3.2-5.2 [facility] ([facility]) Albumin/Globulin Ratio 1.1 1.2-2.2 [facility] ([facility]) ID Date Data Source [id number] 05/03/2020 07:31:00 AM EST [facility] ([facility]) Name Value Range Interpretation Code Description Data Mera rce(s) Supporting Document(s) White Blood Count 5.0 10 4.0-10.0 [facility] ([facility]) Hemoglobin 13.7 g/dL 12.0-15.5 [facility] ([facility]) Red Blood Count 4.92 10 4.00-5.40 [facility] ([facility]) Hematocrit 42.8 % 36.0-47.0 [facility] ([facility]) Mean Corpuscular Volume 87.0 fl 80.0-96.0 M EDENT ([facility]) Mean Corpuscular Hemoglobin 27.8 pg 27.0-33.0 [facility] ([facility]) Red Cell Distribution Width 13.1 % 11.5-14.5 [facility] ([facility]) Mean Corpuscular HGB Conc 32.0 g/dL 32.0-36.5 [facility] ([facility]) Neutrophils % 65.6 % 36.0-66.0 [facility] ([facility]) Platelet Count, Automated 248 10 150-450 [facility] ([facility]) Grimes % 11.9 % 2.0-8.0 [facility] Lymph % 16.3 % 24.0-44.0 [facility] ([facility]) Eos % 4.8 % 0.0-3.0 [facility] ([facility]) Baso % 1.2 % 0.0-1.0 [facility] ([facility]) Nucleated Red Blood Cell % 0.0 % 0-0 MED ENT ([facility]) Immature Granulocyte % 0.2 % 0-3.0 [facility] ([facility]) Lymph # 0.8 10 1.5-5.0 [facility] ([facility], ) Neutrophils # 3.3 10 1.5-8.5 [facility] ([facility], ) Grimes # 0.6 10 0.0-0.8 [facility] ([facility], ) Eos # 0.2 10 0.0-0.5 [facility] ([facility], ) Baso # 0.1 10 0.0-0.2 [facility] ([facility], ) ID Date Data Source [id number] 04/12/2020 11:09:00 AM EST [facility] ([facility]) Name Value Range Interpretation Code Description Data Mera rce(s) Supporting Document(s) Lamotrigine [Mass/volume] in Serum or Plasma 6.7 ug/mL 2.0-20.0 [facility] ([facility], ) Testing on this sample was performed by homogeneous enzyme immunoassay. Detection Limit = 1.0 Performed at: [facility] [place] [id number] City Dispatch Supervisor: Nilam Mendoza [facility], Phone: [phone] ID Date Data Source [id number] 04/12/2020 11:09:00 AM EST [facility] ([facility]) Name Value Range Interpretation Code Description Data Mera rce(s) Supporting Document(s) Glucose, Fasting 86 mg/dL 70-100 [facility] ([facility], ) Creatinine For GFR 0.86 mg/dL 0.55-1.30 [facility] ([facility], ) Blood Urea Nitrogen 12 mg/dL 7-18 [facility] ([facility], ) Glomerular Filtration Rate Laboratory test result [facility] ([facility]) <content>Units are mL/min/1.73 m2</content>
<content></content>
<content>Chronic Kidney Disease Staging per NKF:</content>
<content></content>
<content>Stage I & II GFR >=60 Normal to Mildly Decreased</content>
<content>Stage III GFR 30- 59 Moderately Decreased</content>
<content>Stage IV GFR 15-29 Severely Decreased</content>
<content>Stage V GFR <15 Very Little GFR Left</content>
<content>ESRD GFR <15 on PROGRAM SPECIALIST</content>
<content></content> Sodium Level 141 meq/L 136-145 [facility] ([facility]) Potassium Serum 4.3 meq/L 3.5-5.1 [facility] ([facility]) Chloride Level 105 meq/L 98-107 [facility] ([facility]) Carbon Dioxide Level 28 meq/L 21-32 [facility] ([facility]) Anion Gap 8 meq/L 8-16 [facility] ([facility]) Calcium Level 10.0 mg/dL 8.5-10.1 [facility] ([facility]) Ast/Sgot 27 U/L 7-37 [facility] ([facility]) Alt/SGPT 42 U/L 12-78 [facility] ([facility]) Bilirubin,Total 0.8 mg/dL 0.2-1.0 [facility] ([facility]) Alkaline Phosphatase 487 U/L 45-117 [facility] ([facility]) Total Protein 6.9 GM/DL 6.4-8.2 [facility] ([facility]) Albumin/Globulin Ratio 1.0 1.2-2.2 [facility] ([facility]) Albumin 3.5 GM/DL 3.2-5.2 [facility] ([facility]) ID Date Data Source HEPATITIS B SURFACE ANTIGEN 2020 12:00:00 AM EST eCW1 ([facility]) Name Value Range Interpretation Code Description Data Mera rce(s) Supporting Document(s) NEGATIVE NEGATIVE HEPATITIS B SURFACE ANTIG EN eCW1 ([facility]) ID Date Data Source HEPATITIS C ANTIBODY INDEX 2020 12:00:00 AM EST eCW1 ( [facility]) Name Value Range Interpretation Code Description Data Mera rce(s) Supporting Document(s) < 0.0 <0.8 HEPATITIS C VIRUS JOSE JUAN IND EX eCW1 ([facility]) ID Date Data Source HEPATITIS B SURFACE ANTIBODY 2020 12:00:00 AM EST eCW1 ([facility]) Name Value Range Interpretation Code Description Data Mera rce(s) Supporting Document(s) NEGATIVE POSITIVE HEPATITIS B SURFACE ANTIB SAUL eCW1 ([facility]) ID Date Data Source HEPATITIS A ANTIBODY IGM 2020 12:00:00 AM EST eCW1 ([facility]) Name Value Range Interpretation Code Description Data Mera rce(s) Supporting Document(s) NEGATIVE NEGATIVE HEPATITIS A ANTIBODY IGM eCW1 ([facility]) ID Date Data Source GAMMA GLUTAMYLTRANSPEPTIDASE 2020 12:00:00 AM EST eCW1 ([facility]) Name Value Range Interpretation Code Description Data Mera rce(s) Supporting Document(s) 320 5-55 GAMMA GLUTAMYLTRANSPEPTIDASE e CW1 ([facility]) ID Date Data Source [id number] 03/23/2020 09:39:00 AM EST [facility] ([facility], ) Name Value Range Interpretation Code Description Data Mera rce(s) Supporting Document(s) Valproate [Mass/volume] in Serum or Plasma 59.4 UG/ML 50.0-100.0 [facility] ([facility], ) <content>note:<nlbl:demographic_changed> </content>
<content></content> Lamotrigine [Mass/volume] in Serum or Plasma 14.5 ug/mL 2.0-20.0 [facility] ([facility], ) Testing on this sample was performed by homogeneous enzyme immunoassay. Detection Limit = 1.0 Performed at: [facility] [employer] [address] [place] [id number] City Dispatch Supervisor: Nilam Mendoza [facility], Phone: [phone] ID Date Data Source [id number] 03/14/2020 10:17:00 AM EST [facility] Name Value Range Interpretation Code Description Data Mera rce(s) Supporting Document(s) Respiratory specimen severe acute respir atory syndrome coronavirus 2 (SARS-CoV-2) RNA [facility] This lab was ordered by Stephanie porras and reported by . ID Date Data Source [id number] 03/14/2020 10:14:00 AM [facility] Name Value Range Interpretation Code Description Data Mera rce(s) Supporting Document(s) Respiratory specimen severe acute respir atory syndrome coronavirus 2 (SARS-CoV-2) RNA [facility] This lab [facility] and reported by . ID Date Data Source [id number] 03/14/2020 10:14:00 AM EST [facility] Name Value Range Interpretation Code Description Data Mera rce(s) Supporting Document(s) Respiratory specimen severe acute respir atory syndrome coronavirus 2 (SARS-CoV-2) RNA [facility] This lab was ordered by [facility] and reported by . ID Date Data Source [id number] 03/10/2020 08:32:00 AM [facility] Name Value Range Interpretation Code Description Data Mera rce(s) Supporting Document(s) SARS-CoV-2 RNA INHOUSE Negative Normal (applies to non-n umeric results) [facility] THIS IS A [facility] REPORTABLE COMMUNICABLE DISEASE. Testing was performed using the [employer] COVID-19 MDx Assay. This test has been [...] be found at the following links: Providers: https://www.fda.gov/media/735313/download Patients : https://www.fda.gov/media/905900/download THIS IS A [facility] REPORTABLE COMMUNICABLE DISEASE Negative results do not preclude SARS-CoV-2 infection and should not be used as the sole basis for patient management decisions. Negative results must be combined with clinical observations,patient history, and epidemiological information. ID Date Data Source [id number] 03/03/2020 06:48:00 PM [facility] Name Value Range Interpretation Code Description Data Mera rce(s) Supporting Document(s) SARS-CoV-2 RNA INHOUSE Negative Normal (applies to non-n umeric results) [facility] THIS IS A [facility] REPORTABLE COMMUNICABLE DISEASE. Testing was performed using the [employer] COVID-19 MDx Assay. This test has been [...] be found at the following links: Providers: https://www.[employer].gov/media/894796/download Patients : https://www.fda.gov/media/416844/download THIS IS A [facility] REPORTABLE COMMUNICABLE DISEASE Negative results do not preclude SARS-CoV-2 infection and should not be used as the sole basis for patient management decisions. Negative results must be combined with clinical observations,patient history, and epidemiological information. ID Date Data Source [id number] 02/23/2020 07:15:00 AM [facility] Name Value Range Interpretation Code Description Data Mera rce(s) Supporting Document(s) SARS-CoV-2 GITA result Not Detected Normal (applies to non- numeric results) [facility] This nucleic acid amplification test was developed and its performance characteristics determined by [employer]. Nucleic acid amplification tests include PCR and [...] detected) result in this assay. Performed at: [employer] [address] [place], [place] [id number] City Dispatch Supervisor: Nelsy Ordoñez PhD, Phone: [phone] Testing was performed using the [employer] SARS-CoV-2 assay. This nucleic acid amplification test was developed and its performance characteristics determined by [employer]. Nucleic acid amplification tests include PCR and [...] detected) result in this assay. Performed at: [address] [id number] City Dispatch Supervisor: Ana Taylor MD, Phone: [phone] ID Date Data Source [id number] 02/11/2020 11:29:00 AM EST [facility] Name Value Range Interpretation Code Description Data Mera rce(s) Supporting Document(s) SARS coronavirus 2 RNA [facility] This lab was ordered by Cathi woods and reported by [facility]. ID Date Data Source [id number] 02/14/2020 02:39:00 PM [facility] Name Value Range Interpretation Code Description Data Mera rce(s) Supporting Document(s) COVID-19 Result Not Detected Normal (applies to non-numeri c results) [facility] This nucleic acid amplification test was developed and its performance characteristics determined by [employer]. Nucleic acid amplification tests include PCR and [...] detected) result in this assay. Performed at: [employer] [address], [place] [id number] City Dispatch Supervisor: Nelsy Ordoñez PhD, Phone: [phone] Testing was performed using the [employer] SARS-CoV-2 assay. This nucleic acid amplification test was developed and its performance characteristics determined by [employer]. Nucleic acid amplification tests include PCR and [...] detected) result in this assay. Performed at: [address] [id number] City Dispatch Supervisor: Ana Taylor MD, Phone: [phone] ID Date Data Source [id number] 01/16/2020 12:26:11 PM [facility] Name Value Range Interpretation Code Description Data Mera e(s) Supporting Document(s) Discharge Summary [facility] CKRIKc1aKwKWWkGx56/XGSlgIIZgy3DiYMvqJHp2LLufUHFhD1FbXPN6bH4rOOS2XPtRDdJfSqIsBEP6 m [file] EkRLB3DrB6YVEzBzVvNLmhM1F4QH1vOZDSHz4+ZTfvuXSbuEhhZJVGEkSoViU2UWldNJVIPn2J ID Date Data Source [id number] 01/15/2020 03:36:41 PM [facility] Name Value Range Interpretation Code Description Data Mera rce(s) Supporting Document(s) History and Physical Health system YBISKv2vPtMRPsUe43/PORamBEEvt9AzGDjaYOh4VBsdTILgE3HaEWX3pC9rACR9HWnXRhUxJuEwCCD6 lbm [file] Ev5+M/bdFTf6k5nxZrZP76hcU46ZvduvhQUklzw60nBh9gTedSUA4dy/qj+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 [file] ICAgICAgICAgICAgICAgICAgICAgICAgICAgICAgICAgICAgICAgICAgICAgICAgICAgICAgICAgICAg ICAgICAgICAgICAgICAgICAgICAgICAgICAgICAgDQogICAgICAgICAgICAgICAgICAgICAgICAgICAg ICAgICAgICAgICAgICAgICAgICAgICAgICAgICAgIC AgICAgICAgICAgICAgICAgICAgICAgICAgICAgICAgICAgICAgICAgDQogICAgICAgICAgICAgICAgIC AgICAgICAgICAgICAgICAgICAgICAgICAgICAgICAgICAgICAgICAgICAgICAgICAgICAgICAgICAgIC AgICAgICAgICAgICAgICAgICAgICAgDQogICAgICAg ICAgICAgICAgICAgICAgICAgICAgICAgICAgICAgICAgICAgICAgICAgICAgICAgICAgICAgICAgICAg ICAgICAgICAgICAgICAgICAgICAgICAgICAgICAgICAgDQogICAgICAgICAgICAgICAgICAgICAgICAg ICAgICAgICAgICAgICAgICAgICAgICAgICAgICAgIC AgICAgICAgICAgICAgICAgICAgICAgICAgICAgICAgICAgICAgICAgICAgDQogICAgICAgICAgICAgIC AgICAgICAgICAgICAgICAgICAgICAgICAgICAgICAgICAgICAgICAgICAgICAgICAgICAgICAgICAgIC AgICAgICAgICAgICAgICAgICAgICAgICAgDQogICAg ICAgICAgICAgICAgICAgICAgICAgICAgICAgICAgICAgICAgICAgICAgICAgICAgICAgICAgICAgICAg ICAgICAgICAgICAgICAgICAgICAgICAgICAgICAgICAgICAgDQogICAgICAgICAgICAgICAgICAgICAg ICAgICAgICAgICAgICAgICAgICAgICAgICAgICAgIC AgICAgICAgICAgICAgICAgICAgICAgICAgICAgICAgICAgICAgICAgICAgICAgDQogICAgICAgICAgIC AgICAgICAgICAgICAgICAgICAgICAgICAgICAgICAgICAgICAgICAgICAgICAgICAgICAgICAgICAgIC AgICAgICAgICAgICAgICAgICAgICAgICAgICAgDQog ICAgICAgICAgICAgICAgICAgICAgICAgICAgICAgICAgICAgICAgICAgICAgICAgICAgICAgICAgICAg XUExDGIhINJsONAhZAGeXFEsWFMpDSElURNoEBFoDTVkNHWnVQKaZYg8Z9jkLLIlLINsNZ7aNGy4Gk2+ GOlPReAbFDI0riLjeR2KWK1yc9DuGNtfBOZtv7DcDE i2VZ1GPUOfVVmxOZ7NJTzhew5CUUPfSUOslWNHq2jsQtGuIRL4HIUdViuuMN1KCPIcI4vpusFfBFZnTS RUYFsdYEQPYYejEZKPPDUgNYWsObBzOfZlFEBdUYXvIPGCELP3YIPfTkRfVEkkZZ6Ub8UupTH3IMy+Pg 7LRX8or3XfXOkuUSMxMJ5tdq0OSZaITlFyX1CbyuD8 JQC4EBNnDd9GTNDpGRCpjOEvASTgRVYSPeLzF7VopA74VMVADm7+XIvrtcXkWacOSiB7BRHsw0HbYNw4 TJ1JFOSlLIu9iFFoFSASVCF4JWXqrCIzKNYPBXNysFwfJDPbJKOkUKYeMy5bWXIkRUEeGlH2FHDOVY6E DTPzWSNvpSChRFHzUBWJUU4BPMloBYI2ZTHvjqIjeD RbVZxfSW9JGATiwbQpNvNhBUJGRCh+Rp5JPD1do0OdZQeeZwZcJU3tny4IEIpUXgRzZ3U2wIPqX6A3IO caKa4PJXFtNIFgIaVfWQYGVLlyYC8ZEX3ttdS7XA6CuACbZKCnAUZefXJlYJg7Q76utTCiDYdvDQ8GMK A+Dania+Rq6YRQOxHTEmNTSmTdCcKPNUZiCpC0TbS6AF p5CeQ4RoBW00bNzgljGzYRplQN7VHX2wFHEjFOBUBM7DkXBruQ3lbrFrVABhSBIJPsHnI63ptSEvLNYn XTMeEKSdYf7DEYRjC2QarbZxlLbyvlGkZFIoVBFGMN2XEAkzjeOspAEqxNcjNR75vXdtJK4GTk0TSqHi RY0onx6XfNDbQl4XEBDaRk6YVLPvHZJoWSDsMKE0UI FtVgIkKMmyBCPxFEHvMYI0SYVjQWHbGJ2CVwXmZRUwIww2SJPmZFMlOQTfyk4SBBPmBLK8ULIjSWYdCV MrLZTdTBgwNNEfQQDhOKS0ITZoUOFvUK9UUxArULItOVAoUOOyFFFxFJTlrm6MJZGxVKPiPSM1RQMiZG EaYUCuILmjRXAgQVA6NLD5FDSgPNSnGO7YYfDtAYNe EAygYwNzIWZaCSGctx3PHJWzDEHiVGt0QBIdBNEkCNFwWTwcOBBqQCAuFSz4MDGjWGPmUO4VEnEcJYCo RTS5KoMgQBEcEICdxn3QJFMqCLKyNNcjNPYmXMCrKRQrGTdsUFCpXJI0WlA6GCNiQWHwUM7UOzIpRJBi BOj2SfVxSZHoMHMxfz7RFZVmUVNiKXzxWoTbUBEqKH GwRKybZZOaTFKbWFL7PBIlVLCaZW2ZPrTpWMDrSaE2WESwPYOvIGOgzz7TOSTbDQLsIyE9BzXiLTZzXJ NiDVsqIMTgTDInRUI9ZTNdSJHjSW0HCaFlAMNqLjAxBIQpLPMiUJZrnt2XXCFdRTIiOyV1QwIaGNZuIP KgSDbzMAWgOEA7OqY1LTElZWFfCW9KNpCpBWOsRtJ6 CGgpTDFrCHIemm4UFYGjDWRfWYq3ZJFvRYWjINFwGJvbNZOgVQV6ReZ3UHAqTSMhSM1BYcGbWWIwTxP4 EXSsUBSfCATjsh8WWZDgXFLuXmJ8IZDyHVGkRYPlRZdsWKFrXHB8SEgmOTLzGBEcIH8CKyRrAYKtKrt5 VZhyBXSlOKQllx8EKSHiPBDgMtn1MtBqCOUqFCHuYC frTVTpSMR7HhR0HMVrKVNrIC8MKtQtYIBtLemoHHRkZUHxNTTxny1KFFHrYVVoTMw2HLFgFRBlWOEkZL yvSDTbPVHwKfw6IRIvGBVaOI5UBsWeOTQuAWJyTWhiOICeSROzbl9QLBQcCOP5VNF4HOCrSIYiZQIuVZ l2gjNjgYVnEXj4YY3RI9RvooQvPgzURr2Xm499JGU6 QEFiTk2YK3koCd7bIJEiJNWRMg9OAUl5AMdnB1MwDLFlDFUbSgN7CcJrQQwxGuGsCxc2FtEbZAR+IDww R6PnZpImJ0D6XkOgADwmEgWaRST4FDSjClP0SsVwIJ3jIEEVJd7+LGmkmKEysDpqAXTWPqGbYlF6MJuf KVBNXf5W ID Date Data Source [id number] 01/13/2020 09:31:45 AM [facility] Value Range Interpretation Code Description Data Mera rce(s) Supporting Document(s) Lamotrigine [Mass/volume] in Serum or Plasma 6.4 ug/mL 3.0-14.0 [facility] ID Date Data Source [id number] 01/11/2020 04:48:59 PM [facility] Value Range Interpretation Code Description Data Mera rce(s) Supporting Document(s) Lamotrigine [Mass/volume] in Serum or Plasma 10.0 ug/mL 3.0-14.0 [facility] ID Date Data Source [id number] 01/11/2020 12:16:16 PM [facility] Value Range Interpretation Code Description Data Mera rce(s) Supporting Document(s) Lamotrigine [Mass/volume] in Serum or Plasma 3.0-14.0 [facility] Specimen HemolyzedNotified [id number] /EMU 01/11/20 [id number]. ID Date Data Source [id number] 01/11/2020 12:40:51 PM [facility] Value Range Interpretation Code Description Data Mera rce(s) Supporting Document(s) Choriogonadotropin.beta subunit [Moles/volume] in Serum or Plasma <5 [facility] ID Date Data Source [id number] 01/19/2020 10:40:00 AM [facility] First test? NOEmployed in healthcare? NOSymptomatic per CDC? NOHospitalized? NOICU? NOResident in congregated care? ex fdc, [facility] NO? NO Name Value Range Interpretation Code Description Data Mera rce(s) Supporting Document(s) SARS-CoV-2 RNA Negative Normal (applies to non-numeric r esults) [facility] Negative results should be treated [...] Certificate of Accreditation. Factsheets for healthcare providers: https://www.fda.gov/media/041632/download Factsheets for patients: https://www.fda.gov/media/892336/download The [employer] Instrument is a rapid molecular in vitro diagnostic test utilizing an isothermal nucleic acid amplification technology intended for the qualitative detection of nucleic acid from the SARS-CoV-2 viral RNA. THIS IS A STATE REPORTABLE COMMUNICABLE DISEASE. Manual entry verified by Mayelin Denson 01/19/20 1038 ID Date Data Source [id number] 01/19/2020 12:50:[address] [facility] COVID-19 Patient Ethnicity Not or LatinoCOVID-19 Patient Race WhiteCOVID-19 Specimen Source Nasopharyngeal Name Value Range Interpretation Code Description Data Mera rce(s) Supporting Document(s) SARS-CoV-2 Specimen Source Normal (applies to n on-numeric results) [facility] SARS-CoV-2 RNA Normal (applies to non-numeric r esults) [facility] Patient Race Normal (applies to non-numeric result s) [facility] Patient Ethnicity Normal (applies to non-numeri c results) [facility] See scanned report ID Date Data Source [id number] 12/10/2019 08:10:00 AM EDT MEDENT ([facility], ) Name Value Range Interpretation Code Description Data Mera rce(s) Supporting Document(s) FVC-Pred 4.03 L MEDENT ([facility], ) PDFReport Laboratory test result MEDENT ([facility], ) FVC-LLN 3.29 L MEDENT ([facility]) FVC-%Pred-Pre 30 L MEDENT ([facility]) FVC-Pre 1.22 L MED[facility] ([facility]) Fev1-Pred 3.40 L MED[facility] ([facility]) Fev1-Pre 1.21 L MED[facility] ([facility]) Fev1-%Pred-Pre 35 L MEDENT ([facility]) Fev1-LLN 2.77 L MED[facility] ([facility]) Fev6-Pre 1.22 L MED[facility] ([facility]) Fev6-Pred 3.99 L MED[facility] ([facility]) Fev6-%Pred-Pre 30 L MED[facility] ([facility]) Fev6-LLN 3.27 L MED[facility] ([facility]) Aox1row-Tdz 99 % MEDENT ([facility]) Mvl4ysc-Exvu 85 % [facility] ([facility]) Mkc6ipv-Rrzj 99 % [facility] ([facility]) Czf4nut-BAS 75 % [facility] ([facility]) Tve6koe-%Pred-Pre 116 % [facility] ([facility]) FEFMax-Pred 7.30 L/E/sec MED[facility] ([facility]) Czd7gji-Chr 100 % [facility] ([facility]) Eyi7gkn-%Pred-Pre 100 % [facility] ([facility]) FEFMax-%Pred-Pre 26 L/E/sec [facility] ([facility]) FEFMax-Pre 1.96 L/E/sec MED[facility] ([facility]) FEFMax-LLN 5.48 L/E/sec MED[facility] ([facility]) Hox5375-Dcbr 3.61 L/E/sec MED[facility] ([facility]) Gjb8978-KGQ 2.29 L/E/sec MED[facility] ([facility]) Ntj4116-%Pred-Pre 45 L/E/sec MED[facility] ([facility]) Fvx6714-Jra 1.64 L/E/sec [facility] ([facility]) ExpTime-Pre 1.59 sec MED[facility] ([facility]) Gzk6mxm8-Ewml 86 % [facility] ([facility]) Xvy8jxt6-%Pred-Pre 115 % [facility] ([facility]) Fnu5lme0-Bon 99 % [facility] ([facility]) Xrc7bae9-UIX 77 % [facility] ([facility]) ID Date Data Source [id number] 11/06/2019 03:49:00 PM EDT MEDENT ([facility]) Name Value Range Interpretation Code Description Data Mera rce(s) Supporting Document(s) Lamotrigine [Mass/volume] in Serum or Plasma 9.0 ug/mL 2.0-20.0 [facility] Testing on this sample was performed by homogeneous enzyme immunoassay. Detection Limit = 1.0 Performed at: [employer] [address] [place] [id number] City Dispatch Supervisor: Nilam Mendoza [facility], Phone: [phone] Procedure Social History Code Duration Value Status Description Data Source(s ) Smoking 11/25/2020 12:00:00 AM EDT Patient has never smoked co mpleted Patient has never smoked MED[facility] ([facility]) Smoking 09/06/2020 12:00:00 AM EDT Never Smoker completed Never S moker eCW1 ([facility]) Smoking 07/26/2020 12:00:00 AM EDT Never Smoker completed Never S moker eCW1 ([facility]) Smoking 07/26/2020 12:00:00 AM EDT Never Smoker completed Never S moker eCW1 ([facility]) Smoking 07/26/2020 12:00:00 AM EDT Never Smoker completed Never S moker eCW1 ([facility]) Smoking 04/27/2020 12:00:00 AM EST Never Smoker completed Never S moker eCW1 ([facility]) Smoking 04/27/2020 12:00:00 AM EST Never Smoker completed Never S moker eCW1 ([facility]) Smoking 03/28/2020 12:00:00 AM EST Never Smoker completed Never S moker eCW1 ([facility]) Smoking 03/28/2020 12:00:00 AM EST Never Smoker completed Never S moker eCW1 ([facility]) Smoking 03/28/2020 12:00:00 AM EST Never Smoker completed Never S moker eCW1 ([facility]) Smoking 03/28/2020 12:00:00 AM EST Never Smoker completed Never S moker eCW1 ([facility]) Smoking 03/28/2020 12:00:00 AM EST Never Smoker completed Never S moker eCW1 ([facility]) Smoking 03/28/2020 12:00:00 AM EST Never Smoker completed Never S moker eCW1 ([facility]) Smoking 03/10/2020 12:00:00 AM EST Never Smoker completed Never S moker eCW1 ([facility]) Alcohol intake 01/11/2020 12:00:00 AM EST Lifetime non-drinker (finding) completed Lifetime non-drinker (finding) [facility] ital Tobacco use and exposure 01/11/2020 12:00:00 AM EST Never used co mpleted Never used [facility] Smoking 01/11/2020 12:00:00 AM EST Never smoker completed Never [facility] Vital Signs ID Date Data Source UNK Name Value Range Interpretation Code Description Data Source(s) Systolic blood pressure 116 mm[Hg] 116 mm[Hg] M [facility] ([facility]) Diastolic blood pressure 74 mm[Hg] 74 mm[Hg] [facility] ([facility]) Heart rate 79 /min 79 /min [facility] ([facility]) Oxygen saturation in Arterial blood by Pulse oximetry 98 % 98 % [facility] ([facility]) Body height 67 [in_i] 67 [in_i] [facility] ([facility]) 5'7" Body weight 186.00 [lb_av] 186.00 [lb_av] [facility] ([facility]) Body mass index (BMI) [Ratio] 29.1 kg/m2 29.1 k g/m2 [facility] ([facility]) [place] body weight 135 [lb_av] 135 [lb_av] [facility] ([facility]) Body weight 84.370 kg 84.370 kg [facility] ([facility]) Body surface area Derived from formula 1.96 m2 1.96 m2 [facility] ([facility]) Diastolic blood pressure 80 mm[Hg] 80 mm[Hg] [facility] ([facility]) Heart rate 84 /min 84 /min [facility] ([facility]) Respiratory rate 16 /min 16 /min [facility] ( [facility]) Systolic blood pressure 110 mm[Hg] 110 mm[Hg] [facility] ([facility]) Body weight 185.00 [lb_av] 185.00 [lb_av] MEDEN T ([facility]) Body mass index (BMI) [Ratio] 29.0 kg/m2 29.0 k g/m2 [facility] ([facility]) [place] body weight 135 [lb_av] 135 [lb_av] MEDEN T ([facility]) Body weight 83.916 kg 83.916 kg [facility] ([facility]) Body surface area Derived from formula 1.96 m2 1.96 m2 [facility] ([facility]) Body height 67 [in_i] 67 [in_i] [facility] ([facility]) 5'7" Body weight 186 [lb_av] 186 [lb_av] eCW1 ([facility]) Body weight 84.37 kg 84.37 kg eCW1 ([facility]) Body height 67 [in_i] 67 [in_i] eCW1 ([facility]) Body mass index (BMI) [Ratio] 29.13 kg/m2 29.13 kg/m2 eCW1 ([facility]) Systolic blood pressure 130 mm[Hg] 130 mm[Hg] e CW1 ([facility]) Diastolic blood pressure 82 mm[Hg] 82 mm[Hg] eCW1 ([facility]) Body weight 190.2 [lb_av] 190.2 [lb_av] eCW1 ([facility]) Body height 67 [in_i] 67 [in_i] eCW1 ([facility]) Body mass index (BMI) [Ratio] 29.79 kg/m2 29.79 kg/m2 eCW1 ([facility]) Heart rate 95 /min 95 /min eCW1 ([facility]) Respiratory rate 18 /min 18 /min eCW1 ([facility]) Body temperature 97.5 [degF] 97.5 [degF] eCW1 ( [facility]) Systolic blood pressure 108 mm[Hg] 108 mm[Hg] e CW1 ([facility]) Diastolic blood pressure 74 mm[Hg] 74 mm[Hg] eCW1 ([facility]) Systolic blood pressure 110 mm[Hg] 110 mm[Hg] M EDENT ([facility], ) Diastolic blood pressure 80 mm[Hg] 80 mm[Hg] MEDENT ([facility], ) Heart rate 76 /min 76 /min [facility] ([facility], ) Respiratory rate 16 /min 16 /min MED[facility] ( [facility], ) Body height 67 [in_i] 67 [in_i] MEDENT ([facility], ) 5'7" Body weight 194.00 [lb_av] 194.00 [lb_av] MEDEN T ([facility], ) Body mass index (BMI) [Ratio] 30.4 kg/m2 30.4 k g/[facility] [place] body weight 135 [lb_av] 135 [lb_av] MEDEN T ([facility]) Body weight 87.998 kg 87.998 kg [facility] ([facility]) Body surface area Derived from formula 2.00 m2 2.00 m2 [facility] ([facility]) Body height 67 [in_i] 67 [in_i] [facility] ([facility]) 5'7" [place] body weight 135 [lb_av] 135 [lb_av] MEDEN T ([facility]) Body mass index (BMI) [Ratio] 30.4 kg/m2 30.4 k g/m2 [facility] ([facility]) Body surface area Derived from formula 2.00 m2 2.00 m2 [facility] ([facility]) Systolic blood pressure 122 mm[Hg] 122 mm[Hg] M EDENT ([facility]) Diastolic blood pressure 68 mm[Hg] 68 mm[Hg] [facility] ([facility]) Body weight 194.00 [lb_av] 194.00 [lb_av] MEDEN T ([facility]) Body weight 87.998 kg 87.998 kg [facility] ([facility]) Oxygen saturation in Arterial blood by Pulse oximetry 98 % 98 % [facility] ([facility]) Diastolic blood pressure 88 mm[Hg] 88 mm[Hg] [facility] ([facility]) Heart rate 62 /min 62 /min [facility] ([facility]) Body temperature 96.2 [degF] 96.2 [degF] [facility] ([facility]) Body height 66 [in_i] 66 [in_i] [facility] ([facility]) 5'6" Body weight 192.00 [lb_av] 192.00 [lb_av] MEDEN T ([facility]) Body mass index (BMI) [Ratio] 31.0 kg/m2 31.0 k g/m2 [facility] ([facility]) Systolic blood pressure 120 mm[Hg] 120 mm[Hg] M EDENT ([facility]) [place] body weight 130 [lb_av] 130 [lb_av] MEDEN T ([facility]) Body weight 87.091 kg 87.091 kg [facility] ([facility]) Body surface area Derived from formula 1.97 m2 1.97 m2 [facility] ([facility]) Oxygen saturation in Arterial blood by Pulse oximetry 98 % 98 % [facility] ([facility]) Body temperature 96.2 [degF] 96.2 [degF] [facility] ([facility]) Body height 66 [in_i] 66 [in_i] [facility] ([facility]) 5'6" Body weight 192.00 [lb_av] 192.00 [lb_av] MEDEN T ([facility]) Body mass index (BMI) [Ratio] 31.0 kg/m2 31.0 k g/m2 [facility] ([facility]) [place] body weight 130 [lb_av] 130 [lb_av] MEDEN T ([facility]) Body weight 87.091 kg 87.091 kg [facility] ([facility]) Body surface area Derived from formula 1.97 m2 1.97 m2 [facility] ([facility]) Body height 66 [in_i] 66 [in_i] MEDENT ([facility] 5'6" Body weight 185.00 [lb_av] 185.00 [lb_av] MEDEN T ([facility]) Systolic blood pressure 96 mm[Hg] 96 mm[Hg] M EDENT ([facility]) Diastolic blood pressure 74 mm[Hg] 74 mm[Hg] [facility]ENT ([facility]) Heart rate 75 /min 75 /min [facility] ([facility]) Body mass index (BMI) [Ratio] 29.9 kg/m2 29.9 k g/m2 [facility] ([facility]) Body weight 83.916 kg 83.916 kg [facility] ([facility]) Body temperature 96.6 [degF] 96.6 [degF] MEDENT ([facility]) Body weight 185 [lb_av] 185 [lb_av] eCW1 ([facility]) Body height 67 [in_i] 67 [in_i] eCW1 ([facility]) Body mass index (BMI) [Ratio] 28.97 kg/m2 28.97 kg/m2 eCW1 ([facility]) Heart rate 74 /min 74 /min eCW1 ([facility]) Respiratory rate 18 /min 18 /min eCW1 ([facility]) Body temperature 97.1 [degF] 97.1 [degF] eCW1 ( [facility]) Systolic blood pressure 102 mm[Hg] 102 mm[Hg] e CW1 ([facility]) Diastolic blood pressure 66 mm[Hg] 66 mm[Hg] eCW1 ([facility]) Body weight 186.4 [lb_av] 186.4 [lb_av] eCW1 ([facility]) Body height 67 [in_i] 67 [in_i] eCW1 ([facility]) Body mass index (BMI) [Ratio] 29.19 kg/m2 29.19 kg/m2 eCW1 ([facility]) Heart rate 94 /min 94 /min eCW1 ([facility]) Respiratory rate 18 /min 18 /min eCW1 ([facility]) Body temperature 96.3 [degF] 96.3 [degF] eCW1 ( [facility]) Systolic blood pressure 130 mm[Hg] 130 mm[Hg] e CW1 ([facility]) Diastolic blood pressure 80 mm[Hg] 80 mm[Hg] eCW1 ([facility]) Body weight 200 [lb_av] 200 [lb_av] eCW1 ([facility]) Body height 67 [in_i] 67 [in_i] eCW1 ([facility]) Body mass index (BMI) [Ratio] 31.32 kg/m2 31.32 kg/m2 eCW1 ([facility]) Heart rate 84 /min 84 /min eCW1 ([facility]) Respiratory rate 17 /min 17 /min eCW1 ([facility]) Body temperature 97.4 [degF] 97.4 [degF] eCW1 ( [facility]) Systolic blood pressure 112 mm[Hg] 112 mm[Hg] e CW1 ([facility]) Diastolic blood pressure 74 mm[Hg] 74 mm[Hg] eCW1 ([facility]) Systolic blood pressure 104 mm[Hg] 104 mm[Hg] M EDENT ([facility]) Diastolic blood pressure 82 mm[Hg] 82 mm[Hg] [facility] ([facility]) Heart rate 75 /min 75 /min [facility] ([facility]) Oxygen saturation in Arterial blood by Pulse oximetry 95 % 95 % [facility] ([facility]) Body temperature 96.5 [degF] 96.5 [degF] [facility] ([facility]) Body height 66 [in_i] 66 [in_i] [facility] ([facility]) 5'6" Body weight 179.00 [lb_av] 179.00 [lb_av] [facility] ([facility]) Body mass index (BMI) [Ratio] 28.9 kg/m2 28.9 k g/m2 [facility] ([facility]) [place] body weight 130 [lb_av] 130 [lb_av] [facility] Body weight 81.194 kg 81.194 kg [facility] ([facility]) Body surface area Derived from formula 1.91 m2 1.91 m2 [facility] ([facility]) Respiratory rate 16 /min 16 /min [facility] ( [facility]) Systolic blood pressure 110 mm[Hg] 110 [facility]Hg[facility] Diastolic blood pressure 70 mm[Hg] 70 mm[Hg] [facility] ([facility]) Heart rate 68 /min 68 /min [facility] ([facility]) ID Date Data Source [id number] 03/03/2020 10:35:00 AM EST [facility] Name Value Range Interpretation Code Description Data Source(s) Weight Measurement Method [address] [facility] Weight 3360 3360 [facility] Temperature Source 3 3 [facility] Temperature 96.0 96.0 [facility] Respiratory Effort 1 1 [facility] Respiratory Rate [address] [facility] Pulse Assessment Method 4 4 G [facility] Pulse Rate 84 84 [facility] Height 66 66 [facility] 95/80 95/80 [facility] Weight Measurement Method [address] [facility] Weight 3360 3360 [facility] Temperature Source 3 3 [facility] Temperature 96.0 96.0 [facility] Respiratory Effort 1 1 [facility] Respiratory Rate [address] [facility] Pulse Assessment Method 4 4 G [facility] Pulse Rate 84 84 [facility] Height 66 66 [facility] Blood Pressure 95/80 95/80 [facility] ID Date Data Source [id number] 01/20/2020 03:57:01 PM [facility] Name Value Range Interpretation Code Description Data Source(s) WEIGHT RECORDED 204.9 lb 204.9 lb Health system Body height Measured 67.2 in 67.2 in [facility] Patient Treatment Plan of Care Planned Activity Planned Date Details Description Data Source (s) Azelastine HCl 0.15 % 04/27/2020 12:00:00 AM EST [facility] ([facility]) Azelastine HCl 0.15 % 04/27/2020 12:00:00 AM EST eCW1 ([facility]) Sodium Chloride 0.111 MEQ/ML Nasal Malo 03/10/2020 12:00:00 AM EST [facility] ([facility]) Fluticasone Propionate 50 MCG/ACT 02/22/2020 12:00:00 AM EST eC ([facility]) Fluticasone Propionate 50 MCG/ACT 02/22/2020 12:00:00 AM EST [facility] ([facility]) Acetaminophen 325 MG Oral Tablet 01/11/2020 07:53:09 AM [facility] Bisacodyl 10 MG Rectal Suppository 01/11/2020 07:53:09 AM [facility] alginic acid 200 MG / Calcium Carbonate 80 MG / magnesium trisilicate 20 MG / Sodium Bicarbonate 70 MG Oral Tablet 01/11/2020 07:53:09 AM [facility] Diphenhydramine Hydrochloride 25 MG Oral Capsule 01/11/2020 07:53:0 9 AM [facility] Ibuprofen 200 MG Oral Tablet 01/11/2020 07:53:09 AM [facility] Magnesium Hydroxide 80 MG/ML Oral Suspension 01/11/2020 07:53:09 AM [facility] Ondansetron 4 MG Oral Tablet 01/11/2020 07:53:09 AM [facility] drospirenone 3 MG / Ethinyl Estradiol 0.02 MG Oral Tab let 01/04/2020 12:00:00 AM [facility]ital lamotrigine 200 MG Oral Tablet 12/27/2019 12:00:00 AM [facility] 24 HR venlafaxine 37.5 MG Extended Release Oral Capsul e 12/27/2019 12:00:00 AM [facility] Hydroxyzine Hydrochloride 25 MG Oral Tablet 12/27/2019 12:00:00 AM [facility] aripiprazole 20 MG Oral Tablet 12/27/2019 12:00:00 AM [facility] buspirone hydrochloride 10 MG Oral Tablet 12/23/2019 12:00:00 AM [facility] 24 HR venlafaxine 75 MG Extended Release Oral Capsule 12/20/2019 12:00:00 AM [facility]ital
--- OUTSIDE RECORDS SUMMARY | 2020-12-23 19:31 | CCD ---
Author Author [facility] Address Unknown Phone Unavailable Care Team Providers Care Central Office Repairer Supervisor Name Role Phone Michelle Pretty MD Unavailable Unavailable Michelle Pretty MD Unavailable Unavailable Michelle Pretty MD Unavailable Unavailable Michelle Pretty MD Unavailable Unavailable Michelle Pretty MD Unavailable Unavailable Michelle Pretty MD Unavailable Unavailable Michelle Pretty MD Unavailable Unavailable Michelle Pretty MD Unavailable Unavailable Michelle Pretty MD Unavailable Unavailable Michelle Pretty MD Unavailable Unavailable Michelle Pretty MD Unavailable Unavailable iMchelle Pretty MD Unavailable Unavailable Michelle Pretty MD [...] Unavailable Unavailable Harry Mathews MD Unavailable Unavailable [place], F Steve PA Unavailable Unavailable Sonia, F Steve PA Unavailable Unavailable Sonia, F Steve PA Unavailable Unavailable [place], F Steve PA Unavailable Unavailable [place], F Steve PA Unavailable Unavailable Sonia, F Steve PA Unavailable Unavailable [place], F Steve PA Unavailable Unavailable Sonia, F Steve PA Unavailable Unavailable Sonia, F Steve PA Unavailable Unavailable [place], F Steve PA Unavailable Unavailable Hadian, Mor [...] Mor Unavailable Unavailable Hadian, Mor Unavailable Unavailable Morgan, Nadine PA Unavailable Unavailable Sergio, Nadine PA [...] is protected by Article 27-F of the [facility] Public Health law. If you continue you may have access to information: Regarding HIV / AIDS; Provided by facilities licensed or operated by the [facility] Office of Mental Health; or Provided by the [facility] Office for People With Developmental Disabilities. If such information is present, then the following [facility] mandated warning applies: This information has been [...] law may result in a fine or senior living sentence or both. A general authorization for the release of medical or other information is NOT sufficient authorization for further disc losure. Allergies and Adverse Reactions Type Description Substance Reaction Status Data Source(s ) Drug allergy Drug allergy No Known Allergies [facility] Propensity to adverse reactions NO KNOWN ALLERGIES NO KNOWN ALLERGIES [facility] Propensity to adverse reactions NKDA NKDA MEDENT ([facility]) Family History Family Member Name Family Member Gender Family Member Status Date o f Status Description Data Source(s) Unknown Male Problem MEDENT ([facility] Unknown Male Problem [facility] ([facility]) Encounters Encounter Providers Location Date Indications Data Source(s ) Outpatient Attender: [facility] 11/28 12:00:00 PM EDT [facility] ([facility]) Outpatient Attender: ZOË GAO 11/28 11:49:00 AM EDT - 11/28/2020 11:49:00 AM EDT [facility] Outpatient Attender: Michelle Jarvis/Stacy/Lonnie/Ariel ndl 11/25/2020 09:30:00 AM EDT MEDENT ([facility], ) Outpatient Attender: ARSI PATRICIA [facility] 10/09 10:45:00 AM EDT MED[facility] ([facility] Outpatient Attender: Meli GAO [facility] 10/24/2020 10:45:00 AM EDT MEDENT ([facility]) Outpatient Attender: CATHLEEN Jarvis/Stacy/Ang el/Reindl 10/06/2020 11:40:00 AM EDT MEDENT ([facility], ) Outpatient Attender: ZOË GAO 09/06 09:07:00 AM EDT - 09/06/2020 09:07:00 AM EDT [facility] ( GYNANN) [facility] 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 [address] [place] [address] 09/06/2020 12:00:00 AM EDT eCW1 ([facility]) [place] [address] [facility] [address] 08/26/2020 12:00:00 AM EDT eCW1 ([facility]) [place] [address] [facility] [address] 08/22/2020 12:00:00 AM EDT eCW1 ([facility]) Outpatient Attender: ZOË GAO 08/01 12:22:00 PM EDT - 08/01/2020 12:22:00 PM EDT [facility] Outpatient Attender: [facility] 08/01 12:00:00 PM EDT [facility] ([facility] [place] [address] [facility] [address] 07/26/2020 12:00:00 AM EDT eCW1 ([facility]) Outpatient Attender: Meli GAO Main office - [facility] 07/22/2020 08:00:00 AM EDT MEDENT ([facility]) Outpatient Attender: ARIS PATRICIA [facility] Office 07/09 10:45:00 AM EDT MEDENT ([facility] Outpatient Attender: CATHLEEN Jarvis/Stacy/Abe reeves/Reintriny 06/16/2020 08:30:00 AM EDT MEDENT ([facility]) [place] [address] [facility] [address] 06/14/2020 12:00:00 AM EDT eCW1 ([facility]) Outpatient Attender: Michelle Jarvis/Stacy/Lonnie/Ariel ndl 06/13/2020 11:00:00 AM EDT MEDENT ([facility]) Outpatient Attender: Gregorio Mathews MD Main Office 05/26/2020 11:00:00 AM EDT MEDENT ([facility]) Outpatient Attender: ZOË GAO 05/06 12:29:00 PM EST - 05/06/2020 12:29:00 PM EST [facility] Outpatient Attender: [facility]O [facility] 05/06 11:20:00 AM EST [facility] Office Visit Attender: Meli GAO Main [facility] 05/03/2020 07:45:00 AM EST [facility] ([facility], ) [place] [address] [facility] [address] 04/27/2020 12:00:00 AM EST eCW1 ([facility] Outpatient Attender: ARIS PATRICIA [facility] Office 04/11 09:45:00 AM EST [facility] ([facility] [place] [address] [facility] [place] [address] 04/11/2020 12:00:00 AM EST eCW1 ([facility]) Unknown [address] [facility] [place] [address] 04/08/2020 12:00:00 AM EST [facility]) [facility] [address] [facility] [place] [address] 04/01/2020 12:00:00 AM EST [facility]CW[facility] Unknown [address] [facility] [place] [address] 03/30/2020 12:00:00 AM EST [facility] Outpatient [address] [facility] [place] [address] 2020 12:00:00 AM EST eCW1 [facility] Outpatient Attender: ZOË GAO 03/25 01:23:00 PM EST - 03/25/2020 01:23:00 PM EST [facility] Outpatient Attender: ZO[facility] GAO [facility] 03/25 12:20:00 PM EST [facility] [place] [address] [facility] [place] [address] 03/25/2020 12:00:00 AM EST [facility]CW1 ([facility]) Outpatient [address] [facility] [place] [address] 03/10/2020 12:00:00 AM EST [facility]CW1 [facility]) Outpatient Attender: Mor Braun ED-LABPNP 11:34:00 AM EST - 03/09/2020 11:35:00 AM EST REQUIRED [facility] REQUIRED [facility] Patient discharged. Outpatient Attender: Mor Braun ED-LABPNP 0 10:53:00 AM EST - 03/03/2020 10:54:00 AM EST RETURN TO [facility] RETURN TO [facility] Patient discharged. Emergency Attender: Steve GAO ED-ED 09:05:00 AM EST - 03/03/2020 10:00:00 AM EST ITCHING [facility] ITCHING Patient discharged. [place] [address] [facility] [address] 02/29/2020 12:00:00 AM EST eCW1 [facility] [place] [address] [facility] [address] 02/22/2020 12:00:00 AM EST eCW1 ([facility]) Outpatient [facility] 02/11/2020 03:27:00 PM EST [facility] Outpatient Attender: Mor Braun ED-LABPNP 0 11:54:00 AM EST - 02/11/2020 11:55:00 AM EST NEED TO RETURN TO [facility] NEED TO RETURN TO [facility] Patient discharged. [place] [address] [facility] [address] 02/10/2020 12:00:00 AM EST eCW1 ([facility]) Outpatient Attender: ZOË GAO 02/07 11:28:00 AM EST - 02/08/2020 11:28:00 AM EST [facility] Outpatient Attender: ZOË GAO [facility] 02/07 10:20:00 AM EST [facility] Office Visit Attender: Meli GAO [facility] 02/01/2020 07:45:00 AM EST MEDENT ([facility] ) Outpatient Attender: ARIS PATRICIA [facility] Office 01/09 10:00:00 AM EST MED[facility] ([facility] Inpatient Attender: SHEILA BURDENOFFAdm itter: SHEILA BURDENOFFReferrer: Meli GAO [id number] 01/11/2020 12:00:00 AM EST - 01/15/2020 03:10:00 PM EST Localization-related (focal) (partial) symptomatic epilepsy and epileptic syndromes with simple partial seizures, not intractable, without status epilepticus [facility] Localization-related (focal) (partial) s ymptomatic epilepsy and epileptic syndromes with simple partial seizures, not intractable, without status epilepticus Patient discharged. Outpatient Attender: Nadine GAO ED-LABPNP 01/10/2020 02:14:00 P M EST PREOP [facility] PREOP Outpatient Attender: Nadine GAO ED-LABPNP 01/06/2020 08:0 0:00 AM EDT PRE OP [facility] PRE OP Outpatient Attender: ZOË GAO 12/28 10:23:00 AM EDT - 12/29/2019 10:23:00 AM EDT [facility] Outpatient Attender: Nadine GAO CPSCAORT-LABPNP 12/29/2019 0 8:00:00 AM EDT COVID SCREENING [facility] COVID SCREENING Outpatient Attender: Meli GAO [facility] 10/30/2019 08:30:00 AM EDT MEDENT ([facility]) Immunizations Vaccine Date Status Description Data Source(s) COVID-19 VACCINE Pfizer 04/05/2020 12:00:00 AM EST completed [facility] Vaccine Series Complete: YESThis Data wa s Submitted to [facility] Via [employer]. COVID-19 VACCINE Pfizer 03/15/2020 12:00:00 AM EST completed [facility] Vaccine Series Complete: NOThis Data was Submitted to [facility] Via [employer]. INFLUENZA VIRUS VACCINE QUADRIVALENT (6 MOS AN D UP) 01/06/2020 12:00:00 AM EDT completed [facility] Medications Medication Brand Name Start Date Product Form Dose Route Admi nistrative Instructions Pharmacy Instructions Status Indications Reaction Description Data Source(s) buspirone hydrochloride 10 MG Oral Tablet Buspirone HCL 09/20/2020 12:00:00 AM EDT ORAL active MEDENT ([facility]) buspirone hydrochloride 15 MG Oral Tablet Buspirone HCL 09/06/2020 12:00:00 AM EDT ORAL completed MEDENT ([facility]) Clotrimazole 10 MG/ML Topical Cream Clotrimazole 07/19/2020 12:00:00 AM EDT active [facility] ([facility] Ursodiol 300 MG Oral Capsule Ursodiol 06/23/2020 12:00:00 AM EDT ORAL active MED[facility] ([facility] ) Ciprofloxacin 500 MG Oral Tablet [Cipro] Cipro 06/23/2020 12:00:00 AM EDT completed MEDENT ([facility], ) aripiprazole 10 MG Oral Tablet Aripiprazole 06/20/2020 12:00:00 AM EDT ORAL active MEDENT ([facility]) Levetiracetam 500 MG Oral Tablet Levetiracetam 06/09/2020 12:00:00 AM EDT ORAL active [facility]ENT ([facility]) Levetiracetam 750 MG Oral Tablet Levetiracetam 05/11/2020 12:00:00 AM EST ORAL completed [facility] ([facility]) Azelastine HCl 0.15 % Azelastine HCl 0.15 % 04/27/2020 12:00:00 AM EST 2.0 {sprays_in_each_nostril} active Azelast ine HCl 0.15 % eCW1 ([facility]) Azelastine HCl 0.15 % Azelastine HCl 0.15 % 04/27/2020 12:00:00 AM EST 2.0 {sprays_in_each_nostril} active Azelast ine HCl 0.15 % eCW1 ([facility]) ammonium lactate 120 MG/ML Topical Cream Ammonium Lactate 04/26/2020 12:00:00 AM EST active [facility] ([facility] Levetiracetam 500 MG Oral Tablet Levetiracetam 04/12/2020 12:00:00 AM EST ORAL completed MEDENT ([facility]) Hydroxyzine Hydrochloride 50 MG Oral Tablet Hydroxyzine HCL 03/25/2020 12:00:00 AM EST ORAL active MEDENT ([facility]) Sodium Chloride 0.111 MEQ/ML Nasal [place] Saline Nasal [place] 0.65 % Saline Nasal [place] 0.65 % 03/10/2020 12:00:00 AM EST activ e Saline Nasal [place] 0.65 % eCW1 ([facility]) Sodium Chloride 0.111 MEQ/ML Nasal [place] Saline Nasal [place] 0.65 % Saline Nasal [place] 0.65 % 03/10/2020 12:00:00 AM EST activ e Saline Nasal [place] 0.65 % eCW1 ([facility]) Sodium Chloride 0.111 MEQ/ML Nasal [place] Saline Nasal [place] 0.65 % Saline Nasal [place] 0.65 % 03/10/2020 12:00:00 AM EST activ e Saline Nasal [place] 0.65 % eCW1 ([facility]) Sodium Chloride 0.111 MEQ/ML Nasal [place] Saline Nasal [place] 0.65 % Saline Nasal [place] 0.65 % 03/10/2020 12:00:00 AM EST activ e Saline Nasal [place] 0.65 % eCW1 ([facility]) Sodium Chloride 0.111 MEQ/ML Nasal [place] Saline Nasal [place] 0.65 % Saline Nasal [place] 0.65 % 03/10/2020 12:00:00 AM EST activ e Saline Nasal [place] 0.65 % eCW1 ([facility]) Sodium Chloride 0.111 MEQ/ML Nasal [place] Saline Nasal [place] 0.65 % Saline Nasal [place] 0.65 % 03/10/2020 12:00:00 AM EST activ e Saline Nasal [place] 0.65 % eCW1 ([facility]) Sodium Chloride 0.111 MEQ/ML Nasal [place] Saline Nasal [place] 0.65 % Saline Nasal [place] 0.65 % 03/10/2020 12:00:00 AM EST activ e Saline Nasal [place] 0.65 % eCW1 ([facility]) Sodium Chloride 0.111 MEQ/ML Nasal [place] Saline Nasal [place] 0.65 % Saline Nasal [place] 0.65 % 03/10/2020 12:00:00 AM EST activ e Saline Nasal [place] 0.65 % eCW1 ([facility]) Sodium Chloride 0.111 MEQ/ML Nasal [place] Saline Nasal [place] 0.65 % Saline Nasal [place] 0.65 % 03/10/2020 12:00:00 AM EST activ e Saline Nasal [place] 0.65 % eCW1 ([facility]) Sodium Chloride 0.111 MEQ/ML Nasal [place] Saline Nasal [place] 0.65 % Saline Nasal [place] 0.65 % 03/10/2020 12:00:00 AM EST activ e Saline Nasal [place] 0.65 % eCW1 ([facility]) Sodium Chloride 0.111 MEQ/ML Nasal [place] Saline Nasal [place] 0.65 % Saline Nasal [place] 0.65 % 03/10/2020 12:00:00 AM EST activ e Saline Nasal [place] 0.65 % eCW1 ([facility]) Sodium Chloride 0.111 MEQ/ML Nasal [place] Saline Nasal [place] 0.65 % Saline Nasal [place] 0.65 % 03/10/2020 12:00:00 AM EST activ e Saline Nasal [place] 0.65 % eCW1 ([facility]) Sodium Chloride 0.111 MEQ/ML Nasal [place] Saline Nasal [place] 0.65 % Saline Nasal [place] 0.65 % 03/10/2020 12:00:00 AM EST activ e Saline Nasal [place] 0.65 % eCW1 ([facility]) Sodium Chloride 0.111 MEQ/ML Nasal [place] Saline Nasal [place] 0.65 % Saline Nasal [place] 0.65 % 03/10/2020 12:00:00 AM EST activ e Saline Nasal [place] 0.65 % eCW1 ([facility]) Sodium Chloride 0.111 MEQ/ML Nasal [place] Saline Nasal [place] 0.65 % Saline Nasal [place] 0.65 % 03/10/2020 12:00:00 AM EST activ e Saline Nasal [place] 0.65 % eCW1 ([facility]) Sodium Chloride 0.111 MEQ/ML Nasal [place] Saline Nasal [place] 0.65 % Saline Nasal [place] 0.65 % 03/10/2020 12:00:00 AM EST activ e Saline Nasal [place] 0.65 % eCW1 ([facility]) Sodium Chloride 0.111 MEQ/ML Nasal [place] Saline Nasal [place] 0.65 % Saline Nasal [place] 0.65 % 03/10/2020 12:00:00 AM EST activ e Saline Nasal [place] 0.65 % eCW1 ([facility]) Sodium Chloride 0.111 MEQ/ML Nasal [place] Saline Nasal [place] 0.65 % Saline Nasal [place] 0.65 % 03/10/2020 12:00:00 AM EST activ e Saline Nasal [place] 0.65 % eCW1 ([facility]) Sodium Chloride 0.111 MEQ/ML Nasal [place] Saline Nasal [place] 0.65 % Saline Nasal [place] 0.65 % 03/10/2020 12:00:00 AM EST activ e Saline Nasal [place] 0.65 % eCW1 ([facility]) Sodium Chloride 0.111 MEQ/ML Nasal [place] Saline Nasal [place] 0.65 % Saline Nasal [place] 0.65 % 03/10/2020 12:00:00 AM EST activ e Saline Nasal [place] 0.65 % eCW1 ([facility]) Sodium Chloride 0.111 MEQ/ML Nasal [place] Saline Nasal [place] 0.65 % Saline Nasal [place] 0.65 % 03/10/2020 12:00:00 AM EST activ e Saline Nasal [place] 0.65 % eCW1 ([facility]) Sodium Chloride 0.111 MEQ/ML Nasal [place] Saline Nasal [place] 0.65 % Saline Nasal [place] 0.65 % 03/10/2020 12:00:00 AM EST activ e Saline Nasal [place] 0.65 % eCW1 ([facility]) 20 mg 03/03/2020 12:00:00 AM EST tablet 8 TAKE TWO TABLETS BY MOUTH ONCE DAILY TAKE TWO TABLETS BY MOUTH ONCE DAILY SOLD: 03/03/2020 [facility] Fluticasone Propionate 50 MCG/ACT Fluticasone Propionate 50 MCG/ACT 02/22/2020 12:00:00 AM EST 1.0 {spray_in_each_nostril} acti ve Fluticasone Propionate 50 MCG/ACT eCW1 ([facility]) Fluticasone Propionate 50 MCG/ACT Fluticasone Propionate 50 MCG/ACT 02/22/2020 12:00:00 AM EST 1.0 {spray_in_each_nostril} acti ve Fluticasone Propionate 50 MCG/ACT eCW1 ([facility]) Divalproex Sodium 125 MG Delayed Release Oral Capsule [Depakote] Depakote Patricioles 02/08/2020 12:00:00 AM EST completed MEDENT ([facility]) Divalproex Sodium 125 MG Delayed Release Oral Capsule Divalp roex Sodium 02/08/2020 12:00:00 AM EST ORAL active MEDENT ([facility]) 24 HR Divalproex Sodium 500 MG Extended Release Oral T ablet [Depakote] Depakote ER 02/01/2020 12:00:00 AM EST ORAL completed MEDENT ([facility]) Hydroxyzine Hydrochloride 50 MG Oral Tablet hydrOXYzin e (ATARAX) tablet 25 mg hydrOXYzine (ATARAX) tablet 25 mg 01/14/2020 06:15:00 PM EST 25 mg Oral completed 25 mg, Oral, Once, Sat01/14/20 a t 1815, For 1 dose [facility] Medication administered onsite lamotrigine 100 MG Oral Tablet lamoTRIgine (LaMICtal) tablet 400 mg lamoTRIgine (LaMICtal) tablet 400 mg 01/14/2020 11:30:00 AM EST 400 mg Oral active 400 mg, Oral, 2 Times Daily, First dose on Sat01/14/20 at 1130, For 30 days [facility] Medication administered onsite lamotrigine 100 MG Oral Tablet lamoTRIgine (LaMICtal) tablet 200 mg lamoTRIgine (LaMICtal) tablet 200 mg 01/13/2020 09:00:00 PM EST 200 mg Oral active 200 mg, Oral, Once, Sat01/13/20 at 2100, For 1 dose [facility] Medication administered onsite diazePAM (VALIUM) injection 5 mg [id number] 01/13/2020 12:54:25 PM EST 5 mg Intravenous aborted 5 mg, Intrave nous, Once PRN, Give for 1st GTC, Starting Sat01/13/20 at 1254, For 4 days
Give indicated order dose for 1st GTC
[facility] Medication administered onsite lamotrigine 100 MG Oral Tablet lamoTRIgine (LaMICtal) tablet 200 mg lamoTRIgine (LaMICtal) tablet 200 mg 01/12/2020 09:00:00 PM EST 200 mg Oral active 200 mg, Oral, 2 Times Daily, First dose (after last reorder) on Sat01/12/20 at 2100, For 1 dose [facility] Medication administered onsite lamotrigine 100 MG Oral Tablet lamoTRIgine (LaMICtal) tablet 200 mg lamoTRIgine (LaMICtal) tablet 200 mg 01/12/2020 01:00:00 PM EST 200 mg Oral active 200 mg, Oral, Once, Sat01/12/20 at 1300, For 1 dose [facility] Medication administered onsite lamotrigine 100 MG Oral Tablet lamoTRIgine (LaMICtal) tablet 200 mg lamoTRIgine (LaMICtal) tablet 200 mg 01/12/2020 10:00:00 AM EST 200 mg Oral active 200 mg, Oral, 2 Times Daily, First dose (after last modification) on Sat01/12/20 at 1000, For 1 dose [facility] Medication administered onsite drospirenone 3 MG [...] Own medication being used for this order
[facility] Medication administered onsite cetirizine hydrochloride 10 MG Oral Tablet cetirizine (ZYRTEC) tablet 10 mg cetirizine (ZYRTEC) tablet 10 mg 01/12/2020 09:00:00 AM EST 10 mg Oral active 10 mg, Oral, Daily Standard, First dose on Sat01/12/20 at 0900, For 30 days [facility] Medication administered onsite Cholecalciferol 1000 UNT Oral Tablet vit oconnell D3 (CHOLECALCIFEROL) tablet 2,000 Units vitamin D3 (CHOLECALCIFEROL) tablet 2,000 Units 2019 09:00:00 AM EST 2000 U Oral active 2,000 Un its, Oral, Daily Standard, First dose on Sat01/12/20 at 0900, For 20 days
25 mcg vitamin D3 = 1,000 international units vitamin D3.
[facility] Medication administered onsite 24 HR venlafaxine [...] XR 75 mg to get 112.5 mg
[facility] Medication administered onsite 24 HR venlafaxine [...] XR 37.5 mg to get 112.5 mg
[facility] Medication administered onsite lamotrigine 100 MG Oral Tablet lamoTRIgine (LaMICtal) tablet 400 mg lamoTRIgine (LaMICtal) tablet 400 mg 01/11/2020 09:00:00 PM EST 400 mg Oral active 400 mg, Oral, 2 Times Daily, First dose on Sat01/11/20 at 2100, For 1 dose [facility] Medication administered onsite buspirone hydrochloride 10 MG Oral Tablet busPIRone (B USPAR) tablet 10 mg busPIRone (BUSPAR) tablet 10 mg 01/11/2020 09:00:00 PM EST 10 mg O ral active 10 mg, Oral, 2 Times Daily, First dose on Sat01/11/20 at 2100, For 30 days [facility] Medication administered onsite aripiprazole 10 MG [...] on Sat01/11/20 at 1600, For 30 days [facility] Medication administered onsite hypromellose 0.003 MG/MG Ophthalmic Gel hypromellose (GENTEAL) 0.3 % ophthalmic gel 1 drop hypromellose (GENTEAL) 0.3 % ophthalmic gel 1 drop 04/2019 10:45:00 AM EST 1 [drp] Both Eyes active 1 drop, Both Eyes, 2 Times Daily, First dose (after last modification) on Sat01/11/20 at 1045, For 30 days [facility] Medication administered onsite sodium chloride (preservative [...] 0753, For 30 days [Order 6 End] [facility] Medication administered onsite senna tablet 2 [...] on the third day.
[Order 2 End] [facility] Medication administered onsite Acetaminophen 325 MG [...] mg from all sources in 24 hours.
[facility] Medication administered onsite Ondansetron 4 MG Oral Tablet ondansetron (ZOFRAN) tabl et 4 mg ondansetron (ZOFRAN) tablet 4 mg 01/11/2020 07:53:09 AM EST 4 mg Oral active 4 mg, Oral, Every 8 hours PRN, Nausea, Starting Sat01/11/20 at 0753, For 30 days [facility] Medication administered onsite Magnesium Hydroxide 80 MG/ML Oral Suspen mary magnesium hydroxide (MILK OF MAGNESIA) 400 MG/5ML suspension 45 mL magnesium hydroxide (MILK OF MAGNESIA) 4 00 MG/5ML suspension 45 mL 01/11/2020 07:53:09 AM EST 45 mL Oral active 45 mL, Oral, Nightly PRN, Constipation, Starting Sat01/11/20 at 0753, For 30 days
If serum creatinine > 2 notify provider before administering.
[facility] Medication administered onsite alginic acid 200 MG / Calcium Carbonate 80 MG / magnesium trisilicate 20 MG / Sodium Bicarbonate 70 MG Oral Tablet calcium carbonate (TUMS) chewable tablet 500 mg calcium carbonate (TUMS) chewable tablet 500 mg 2019 07:53:09 AM EST 500 mg Oral active 500 mg, Oral, Daily PRN, Indigestion, Heartburn, Starting Sat01/11/20 at 0753, For 30 days [facility] Medication administered onsite Bisacodyl 10 MG Rectal Suppository bisacodyl (DULCOLAX ) suppository 10 mg bisacodyl (DULCOLAX) suppository 10 mg 01/11/2020 07:53:09 AM EST 10 mg Rectal active 10 mg, Rectal, Every 72 hours PRN, Constipation, Starting Sat01/11/20 at 0753, For 30 days
Hold if patient has had a BM in the past 2 days.
[facility] Medication administered onsite Ibuprofen 200 MG Oral Tablet ibuprofen (MOTRIN) tablet 200 mg ibuprofen (MOTRIN) tablet 200 mg 01/11/2020 07:53:09 AM EST 200 mg Oral acti ve 200 mg, Oral, Every 6 hours PRN, Mild Pain (Pain Scale Score 1-3), Fever, Starting Sat01/11/20 at 0753, For 30 days
Take with food.
[facility] Medication administered onsite Diphenhydramine Hydrochloride 25 MG Oral Capsule diphenhydrAMINE (BENADRYL) capsule 25 mg diphenhydrAMINE (BENADRYL) capsule 25 mg 01/11/2020 07 :53:09 AM EST 25 mg Oral active 25 mg, O ral, Every 6 hours PRN, Itching, Starting Sat01/11/20 at 0753, For 30 days [facility] Medication administered onsite drospirenone 3 MG / Ethinyl Estradiol 0. 02 MG Oral Tablet Drospirenone-Ethinyl Estradiol 3-0.02 MG Oral Tablet (GIANVI) Drospirenone-Ethinyl Estradiol 3-0.02 MG Oral Tablet (GIANVI) 01/04/2020 12:00:00 AM EDT 1 {tbl} Oral active Take 1 tablet [facility] MG Oral Tablet ARIPiprazole 20 MG Oral Tablet (ABILIFY) ARIPiprazole 20 MG Oral Tablet (ABILIFY) 12/27/2019 12:00:00 AM EDT 10 mg Oral active Take 10 mg by mouth Two Times Daily [facility] 24 HR venlafaxine 37.5 MG Extended Relea se Oral Capsule Venlafaxine HCl ER 37.5 MG Oral Capsule Extended Release 24 Hour (EFFEXOR-XR) Venlafaxine HCl ER 37.5 MG Oral Capsule Extended Release 24 Hour (EFFEXOR-XR) 12/27/2019 12:00:00 AM EDT 37.5 mg Oral active Take 37.5 mg by mouth daily Take with 75 mg capsule. HFR=643.5 mg. [facility] lamotrigine 200 MG Oral Tablet lamoTRIgine 200 MG Oral Tablet (LaMICtal) lamoTRIgine 200 MG Oral Tablet (LaMICtal) 12/27/2019 12:00:00 AM EDT 400 mg Oral active Take 400 mg by mouth Two Times Daily [facility] Hydroxyzine Hydrochloride 25 MG Oral Tab let hydrOXYzine HCl 25 MG Oral Tablet (ATARAX) hydrOXYzine HCl 25 MG Oral Tablet (ATARAX) 12/27/2019 12:00: 00 AM EDT 25 mg Oral active Take 25 mg by mo uth Three times daily [facility] buspirone hydrochloride 10 MG Oral Table t busPIRone HCl 10 MG Oral Tablet (BUSPAR) busPIRone HCl 10 MG Oral Tablet (BUSPAR) 12/23/2019 12:00:00 AM EDT 10 mg Oral active Take 10 mg by mouth Two Times Daily [facility] buspirone hydrochloride 10 MG Oral Tablet Buspirone HCL 12/23/2019 12:00:00 AM EDT ORAL active [facility] ([facility]) 24 HR venlafaxine 75 MG Extended Release Oral Capsule Venlafaxine HCl ER 75 MG Oral Capsule Extended Release 24 Hour (EFFEXOR-XR) Venlafaxine HCl ER 75 MG Oral Capsule Extended Release 24 Hour (EFFEXOR-XR) 12/20/2019 12:00:00 AM EDT 75 mg Oral active Take 75 mg by mouth daily Take with 37.5 mg capsule. HLZ=843.5 mg. [facility] aripiprazole 20 MG Oral Tablet Aripiprazole 10/26/2019 12:00:00 AM EDT ORAL active [facility] ([facility]) Insurance Providers Payer name Policy type / Coverage type Policy ID Covered constitution party ID Covered constitution party's relationship to delgado Policy Delgado Plan Information [employer]/MVP Medigap Part B [id number] Family Dependent [id number] BS [place] Medigap Part B [id number] Family Dependent V [id number] BCBS JAYDIANDRA SUDHA PPO 302/307 [id number] Medicare [place] Primary [id number] Self 1 [id number] MEDICARE [id number] SP [id number] MEDICARE A [id number] Self [id number] [place] Medigap Part B [id number] [id number] Self [id number] MEDICAID [id number] SP [id number] MEDICARE [id number] SP [id number] X71 MEDICAID M [id number] Self [id number] MEDICAID [id number] [facility] [id number] Self [id number] Medicare Part B Medicare Primary [id number] Self [id number] Medicaid Medicaid [id number] Self [id number] Medicare Medicare Primary [id number] Self [id number] ANSI-Medicaid [id number] ANS-Medicare Part B [id number] ANSI-Commercial [id number] ANSI-Medicaid [id number] ANSI-Commercial [id number] [facility]-Medicare Part B [id number] Medicaid [facility] Part B [id number] 40.0 Self [id number] Medicare Part B Medicare Primary [id number] Self [id number] Medicaid Medicaid [id number] S elf [id number] Medicare Medicare Primary [id number] [id number]. [id number] Self [id number] ANSI-Medicaid [id number] ANSI-Medicare Part B [id number] ANSI-Commercial [id number] ANSI-Medicare Part B [id number] ANSI-Commercial [id number] ANSI-Medicaid [id number] ANSI-Medicare Part B [id number] ANSI-Commercial [id number] ANSI-Medicaid [id number] Medicaid [facility] Part B [id number] 40.0 Self [id number] Medicare Part B Medicare Primary [id number] [id number] Self [id number] *NOTFORTODAYSVISIT* SP *NOTFORTODAYSVISIT* Medicaid Medicaid [id number] [id number] S elf [id number] Medicare Medicare Primary [id number] 2.16.840.1.091345.3.227. [id number] Self [id number] ANSI-Medicaid [id number] ANSI-Medicare Part B [id number] ANSI-Commercial [id number] ANSI-Commercial [id number] [id number] ANSI-Medicaid [id number] ANSI-Medicare Part B [id number] ANSI-Commercial [id number] ANSI-Medicaid [id number] ANSI-Medicare Part B [id number] ANSI-Medicaid [id number] ANSI-Medicare Part B [id number] ANSI-Commercial [id number] Medicaid [facility] Part B [id number] [id number] 40.0 Self [id number] Medicare Part B Medicare Primary [id number] 2.16.840.1.574055.3.227.99.1037.17755.0 Self [id number] MEDICARE [id number] ANSI-Commercial [id number] ANSI-Medicare Part B [id number] ANSI-Medicaid [id number] ANSI-Commercial [id number] ANSI-Medicare Part B [id number] ANSI-Medicaid [id number] ANSI-Commercial [id number] ANSI-Medicaid [id number] ANSI-Medicare Part B [id number] ANSI-Medicaid [id number] ANSI-Medicare Part B [id number] ANSI-Commercial [id number] ANSI-Medicare Part B [id number] ANSI-Commercial [id number] ANSI-Medicaid [id number] Medicaid Medigap Part B [id number] 40.0 Self [id number] Medicare Part B Medicare Primary [id number] Self [id number] ANSI-Medicaid [id number] ANSI-Commercial [id number] ANSI-Medicare Part B [id number] ANSI-Commercial [id number] ANSI-Medicaid [id number] ANSI-Medicare Part B [id number] Medicaid Medigap Part B [id number] 40.0 Self [id number] Medicare Part B Medicare Primary [id number] Self [id number] Medicaid Medigap Part B [id number] 40.0 Self [id number] Medicare Part B Medicare Primary [id number] 2.16.840.1.920987.3.227.99.1037.34450.0 Self [id number] Medicaid Medigap Part B [id number] 40.0 Self [id number] Medicare Part B Medicare Primary [id number] Self [id number] Medicaid Medigap Part B [id number] 40.0 Self [id number] Medicare Part B Medicare Primary [id number]037.14659.0 Self [id number] Medicaid Medigap Part B [id number] 40.0 Self [id number] Medicare Part B Medicare Primary [id number] Self [id number] Medicaid Medigap Part B [id number] 40.0 Self [id number] Medicare Part B Medicare Primary [id number] Self [id number] Medicaid Medigap Part B [id number] [id number] 40.0 Self [id number] Medicare Part B Medicare Primary [id number] Self [id number] Medicaid Medigap Part B [id number] 40.0 Self [id number] Medicare Part B Medicare Primary [id number] Self [id number] MEDICAID [id number] SP [id number] Medicare Part B Medicare Primary [id number] Self Medicaid Medicaid [id number] Self 1 1 Medicare Medicare Primary [id number] Self MEDICARE P [id number] S [id number] MEDICAID -O/P [id number] BLUE CROSS -O/P [id number] 19 [id number] MEDICARE -O/P [id number] 18 [id number] MEDICAID -CLINIC [id number] [place]OSS - CLINIC [id number] MEDICARE - CLINIC [id number] 18 [id number] [facility] MEDICAID [id number] SP [id number] M [id number] MEDICARE [id number] SP [id number] MEDICAID CO [id number] 18 [id number] MEDICARE CO [id number] 18 [id number] [place] [id number] SP [id number] MEDICARE C [id number] S [id number] MEDICAID M [id number] S [id number] MEDICAID [id number] S [id number] MEDICARE [id number] S [id number] MEDICAID [id number] SP [id number] Problems, Conditions, and Diagnoses Code Display Name Description Problem Type Effective Dates Data Source(s) F419 Anxiety disorder, unspecified Anxiety disorder, unspec ified Diagnosis 08/01/2020 12:22:00 PM EDT [facility] F79 Unspecified intellectual disabilities Unspecifie d intellectual disabilities Diagnosis 08/01/2020 12:22:00 PM EDT [facility] F840 Autistic disorder Autistic disorder Diagnosis 08/01/2020 12:22:00 PM EDT [facility] 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, not intractable, without status epilepticus Localization-related (focal) (partial) s ymptomatic epilepsy and epileptic syndromes with simple partial seizures, not intractable, without status epilepticus Diagnosis 01/15/2020 07:48:28 PM [facility] Localization-related epilepsy Localization-related epi lepsy Diagnosis 01/11/2020 07:35:00 AM [facility] r51 r51 Diagnosis 01/11/2020 07:35:00 AM [facility] [...] DISEASES Di agnosis 01/06/2020 08:00:00 AM EDT [facility] M72.2 Plantar fascial fibromatosis Plantar fascial fibromato sis Problem 10/25/2020 12:00:00 AM EDT [facility] ([facility] [id number] Liver enzymes abnormal Liver enzymes abnormal Problem 05/26/2020 12:00:00 AM EDT [facility] ([facility]) J30.9 Allergic rhinitis Allergic sinusitis Problem 04/27/2020 12:00:00 AM EST eCW1 ([facility]) Surgeries/Procedures Procedure Description Date Indications Data Source(s) OFFICE OUTPATIENT VISIT 25 MINUTES 11/28/2020 12:00:00 AM EDT [facility] ([facility]) OFFICE OUTPATIENT VISIT 25 MINUTES 11/25/2020 12:00:00 AM EDT [facility] ([facility], ) Spirometry 11/10/2020 12:00:00 AM EDT [facility]YLER ([facility], ) Plethysmography Determination Lung Volumes & Per Airway Resi st 11/10/2020 12:00:00 AM EDT [facility] ([facility]) OFFICE OUTPATIENT VISIT 10 MINUTES 10/25/2020 12:00:00 AM EDT [facility] ([facility] OFFICE OUTPATIENT VISIT 25 MINUTES 10/24/2020 12:00:00 AM EDT [facility] ([facility]) OFFICE OUTPATIENT VISIT 25 MINUTES 10/06/2020 12:00:00 AM EDT [facility] ([facility]) OFFICE OUTPATIENT VISIT 25 MINUTES 09/06/2020 12:00:00 AM EDT [facility] ([facility]) Ercp For Removal Stone(S) Biliary/Pancreatic Ducts 08/19/2020 12:00:00 AM EDT [facility] ([facility]) Ercp Removal & Exchange Stents Biliary/Pancreatic Duct 08/19/2020 12:00:00 AM EDT [facility] ([facility]) ENDOSCOPIC CATHJ BILIARY DUCTAL SYSTEM RS&I 08/19/2020 12:00:00 AM EDT [facility] ([facility]) OFFICE OUTPATIENT VISIT 25 MINUTES 08/01/2020 12:00:00 AM EDT [facility] ([facility]) OFFICE OUTPATIENT VISIT 25 MINUTES 07/22/2020 12:00:00 AM EDT [facility] ([facility]) OFFICE OUTPATIENT VISIT 10 MINUTES 07/19/2020 12:00:00 AM EDT [facility] ([facility] Ercp For Removal Stone(S) Biliary/Pancreatic Ducts 06/23/2020 12:00:00 AM EDT [facility] ([facility]) Ercp Removal & Exchange Stents Biliary/Pancreatic Duct 06/23/2020 12:00:00 AM EDT [facility] ([facility]) ENDOSCOPIC CATHJ BILIARY DUCTAL SYSTEM RS&I 06/23/2020 12:00:00 AM EDT [facility] ([facility]) OFFICE OUTPATIENT NEW 45 MINUTES 06/16/2020 12:00:00 A M EDT [facility] ([facility]) Bronchospasm Evaluation 06/13/2020 12:00:00 AM EDT [facility] ([facility]) Plethysmography Determination Lung Volumes & Per Airway Resi st 06/13/2020 12:00:00 AM EDT [facility] ([facility] ) DIFFUSING CAPACITY 06/13/2020 12:00:00 AM EDT [facility] ([facility], ) OFFICE OUTPATIENT VISIT 25 MINUTES 06/13/2020 12:00:00 AM EDT [facility] ([facility], ) PHYSICIAN TELEPHONE EVALUATION 5-10 MIN 05/03/2020 12: 00:00 AM EST [facility] ([facility], ) EEG VIDEO MONITORING <td>EEG VIDEO MONITORING</td ><td>Routine</td><td>01/15/2020 3:10 PM EST</td><td></td><td></td> 01/15/2020 03:10:00 PM [facility] LAMOTRIGINE <td>LAMOTRIGINE</td><td>Rout ine</td><td>01/13/2020 5:41 AM EST</td><td></td><td> </td> 01/13/2020 05:41:00 AM [facility] LAMOTRIGINE <td>LAMOTRIGINE</td><td>Rout ine</td><td>01/11/2020 12:47 PM EST</td><td></td><td> </td> 01/11/2020 12:47:00 PM [facility] QUANTITATION DRUG NOT ELSEWHERE SPECIFIED <td>LAMOTRIGINE</td><td>Routine</td><td>01/11/2020 11:48 AM EST</td><td></td><td> </td> 01/11/2020 11:48:00 AM [facility] GONADOTROPIN CHORIONIC QUANTITATIVE <td>BETA HCG, QUANT</td><td>Routine</td><td>01/11/2020 11:43 AM EST</td><td></td><td> </td> 01/11/2020 11:43:00 AM [facility] Results ID Date Data Source [id number] 12/01/2020 03:27:00 AM EDT [facility] Name Value Range Interpretation Code Description Data Mera rce(s) Supporting Document(s) SARS-CoV-2 (COVID 19) NEGATIVE - SARS-CoV-2 (COVID19) [facility] This lab was ordered by [facility] a nd reported by [facility]. ID Date Data Source [id number] 11/08/2020 11:45:00 AM EDT [facility] ([facility], ) Name Value Range Interpretation Code Description Data Mera rce(s) Supporting Document(s) Levetiracetam [Mass/volume] in Serum or Plasma 12.6 ug/mL 10.0-40.0 [facility] ([facility], ) This test was developed and its performa nce characteristics determined by [facility]. It has not been cleared or approved by the Food and Drug Administration. Lamotrigine [Mass/volume] in Serum or Plasma 12.1 ug/mL 2.0-20.0 [facility] ([facility], ) Detection Limit = 1.0 Performed at: [facility] [address] [id number] Cardroom Worker: Maida Weber MD, Phone: [phone] ID Date Data Source [id number] 11/08/2020 11:45:00 AM EDT [facility] ([facility], ) Name Value Range Interpretation Code Description Data Mera rce(s) Supporting Document(s) Glucose, Fasting 69 mg/dL 70-100 [facility] ([facility], ) Blood Urea Nitrogen 13 mg/dL 7-18 [facility] ([facility], ) Creatinine For GFR 0.80 mg/dL 0.55-1.30 [facility] ([facility], ) Glomerular Filtration Rate Laboratory test result [facility] ([facility], ) <content>Units are mL/min/1.73 m2</content>
<content></content>
<content>Chronic Kidney Disease Staging per NKF:</content>
<content></content>
<content>Stage I & II GFR >=60 Normal to Mildly Decreased</content>
<content>Stage III GFR 30- 59 Moderately Decreased</content>
<content>Stage IV GFR 15-29 Severely Decreased</content>
<content>Stage V GFR <15 Very Little GFR Left</content>
<content>ESRD GFR <15 on BORING MACHINE OPERATOR</content>
<content></content> Sodium Level 139 meq/L 136-145 [facility] ([facility], ) Chloride Level 106 meq/L 98-107 [facility] ([facility]) Potassium Serum 5.0 meq/L 3.5-5.1 [facility] ([facility]) Anion Gap 5 meq/L 8-16 [facility] ([facility]) Carbon Dioxide Level 28 meq/L 21-32 [facility] ([facility]) Calcium Level 9.7 mg/dL 8.5-10.1 [facility] ([facility]) Ast/Sgot 15 U/L 7-37 [facility] ([facility]) Alt/SGPT 26 U/L 12-78 [facility] ([facility]) Bilirubin,Total 0.4 mg/dL 0.2-1.0 [facility] ([facility]) Alkaline Phosphatase 206 U/L 45-117 [facility] ([facility]) Albumin 3.8 GM/DL 3.2-5.2 [facility] ([facility]) Total Protein 7.3 GM/DL 6.4-8.2 [facility] ([facility]) Albumin/Globulin Ratio 1.1 1.2-2.2 [facility] ([facility]) ID Date Data Source [id number] 11/08/2020 11:45:00 AM EDT [facility] ([facility]) Name Value Range Interpretation Code Description Data Mera rce(s) Supporting Document(s) White Blood Count 8.3 10 4.0-10.0 [facility] ([facility], ) Red Blood Count 5.09 10 4.00-5.40 [facility] ([facility]) Hemoglobin 13.7 g/dL 12.0-15.5 [facility] ([facility]) Hematocrit 43.1 % 36.0-47.0 [facility] ([facility]) Mean Corpuscular HGB Conc 31.8 g/dL 32.0-36.5 [facility] ([facility]) Mean Corpuscular Hemoglobin 26.9 pg 27.0-33.0 [facility] ([facility]) Mean Corpuscular Volume 84.7 fl 80.0-96.0 M [facility] ([facility]) Platelet Count, Automated 332 10 150-450 [facility] ([facility]) Red Cell Distribution Width 12.8 % 11.5-14.5 [facility] ([facility]) Neutrophils % 76.8 % 36.0-66.0 [facility] ([facility]) Lymph % 12.4 % 24.0-44.0 [facility] ([facility]) [place] % 7.8 % 2.0-8.0 [facility] ([facility]) Eos % 1.8 % 0.0-3.0 [facility] ([facility]) Immature Granulocyte % 0.6 % 0[facility] Baso % 0.6 % 0.0-1.0 [facility] ([facility]) Nucleated Red Blood Cell % 0.0 % 0-0 [facility] ([facility]) Neutrophils # 6.3 10 1.5-8.5 [facility] ([facility]) [place] # 0.6 10 0.0-0.8 [facility] ([facility]) Lymph # 1.0 10 1.5-5.0 [facility] ([facility]) Eos # 0.2 10 0.0-0.5 [facility] ([facility]) Baso # 0.1 10 0.0-0.2 [facility] ([facility]) ID Date Data Source [id number] 09/19/2020 08:33:00 AM EDT [facility] ([facility]) Name Value Range Interpretation Code Description Data Mera rce(s) Supporting Document(s) Gamma glutamyl transferase [Enzymatic activity/volume] in Serum or Plasma 73 U/L 5-55 Above high normal [facility] ([facility], ) <content>note:<[email or web address]> </content>
<content></content> ID Date Data Source [id number] 09/19/2020 08:33:00 AM EDT [facility] ([facility], ) Name Value Range Interpretation Code Description Data Mera rce(s) Supporting Document(s) Ast/Sgot 15 U/L 7-37 Normal (applies to non-numeric resul ts) [facility] ([facility], ) Alt/SGPT 22 U/L 12-78 Normal (applies to non-numeric resul ts) [facility] ([facility]) Alkaline Phosphatase 183 U/L 45-117 Above high normal [facility] ([facility]) Bilirubin,Total 0.6 mg/dL 0.2-1.0 Normal (applies to non-numeric results) [facility] ([facility]) Albumin 3.5 GM/DL 3.2-5.2 Normal (applies to non-numeric resul ts) [facility] ([facility]) Bilirubin,Direct 0.2 mg/dL 0.0-0.2 Normal (applies to non-numeric results) [facility] ([facility]) Total Protein 6.8 GM/DL 6.4-8.2 Normal (applies to non-numeric re sults) [facility] ([facility]) Albumin/Globulin Ratio 1.1 1.2-2.2 Below low normal [facility] ([facility]) ID Date Data Source [id number] 09/19/2020 08:33:00 AM EDT [facility] Name Value Range Interpretation Code Description Data Mera rce(s) Supporting Document(s) White Blood Count 5.2 10 4.0-10.0 Normal (applies to non-numeri c results) [facility] ([facility]) Hemoglobin 13.1 g/dL 12.0-15.5 Normal (applies to non-numeric resul ts) [facility] ([facility]) Red Blood Count 4.88 10 4.00-5.40 Normal (applies to non-numeric results) [facility] ([facility], ) Mean Corpuscular Hemoglobin 26.8 pg 27.0-33.0 Below low normal [facility] ([facility]) Mean Corpuscular Volume 84.4 fl 80.0-96.0 Normal ( applies to non-numeric results) [facility] ([facility]) Hematocrit 41.2 % 36.0-47.0 Normal (applies to non-numeric resul ts) [facility] ([facility]) Mean Corpuscular HGB Conc 31.8 g/dL 32.0-36.5 Below low normal [facility] ([facility]) Platelet Count, Automated 248 10 150-450 Normal (applies to non-numeric results) [facility] ([facility]) Red Cell Distribution Width 13.2 % 11.5-14.5 Norm al (applies to non-numeric results) [facility] ([facility]) Neutrophils % 73.7 % 36.0-66.0 Above high normal [facility] NT ([facility]) Lymph % 12.9 % 24.0-44.0 Below low normal [facility] ( [facility]) [place] % 8.7 % 2.0-8.0 Above high normal [facility] ([facility]) Eos % 3.3 % 0.0-3.0 Above high normal [facility] ([facility]) Baso % 0.8 % 0.0-1.0 Normal (applies to non-numeric resul ts) [facility] ([facility]) Immature Granulocyte % 0.6 % 0-3.0 Normal (applies to non-n umeric results) [facility] ([facility]) Lymph # 0.7 10 1.5-5.0 Below low normal [facility] ( [facility]) Neutrophils # 3.8 10 1.5-8.5 Normal (applies to non-numeric re sults) [facility] ([facility]) Nucleated Red Blood Cell % 0.0 % 0-0 Normal (applies to n on-numeric results) [facility] ([facility]) Eos # 0.2 10 0.0-0.5 Normal (applies to non-numeric resul ts) [facility]) [place] # 0.5 10 0.0-0.8 Normal (applies to non-numeric resul ts) [facility]) Baso # 0.0 10 0.0-0.2 Normal (applies to non-numeric resul ts) [facility]) ID Date Data Source [id number] 08/19/2020 05:03:00 AM EDT [facility]) Name Value Range Interpretation Code Description Data Mera rce(s) Supporting Document(s) Microscopic observation [Identifier] in Unspecified specimen by Non- gynecological cytology method Laboratory test result [facility]) SPECIMEN: Common bile duct br ushing [place] in vial received SPECIMEN ADEQUACY: Satisfactory for evaluation CATEGORIZATION: No Malignancy identified DESCRIPTIONS: Reactive ductal cells noted. COMMENTS: 08/22/2020 - 742 Signed COLEEN BRAVO(ASCP) 08/22/2020 0743 (Prelim) Signed LEAH JIMENEZ MD 08/22/2020 0911 ID Date Data Source [id number] 08/18/2020 09:05:00 AM EDT [facility]) Name Value Range Interpretation Code Description Data Mera rce(s) Supporting Document(s) Creatinine For GFR 0.77 mg/dL 0.55-1.30 Normal (applies to non -numeric results) [facility] ([facility]) Glomerular Filtration Rate Laboratory test result Normal (applies to non- numeric results) [facility]) <content>Units are mL/min/1.73 m2</content>
<content></content>
<content>Chronic Kidney Disease Staging per NKF:</content>
<content></content>
<content>Stage I & II GFR >=60 Normal to Mildly Decreased</content>
<content>Stage III GFR 30- 59 Moderately Decreased</content>
<content>Stage IV GFR 15-29 Severely Decreased</content>
<content>Stage V GFR <15 Very Little GFR Left</content>
<content>ESRD GFR <15 on BORING MACHINE OPERATOR</content>
<content></content> ID Date Data Source [id number] 08/18/2020 09:05:00 AM EDT [facility]) Name Value Range Interpretation Code Description Data Mera rce(s) Supporting Document(s) Urea nitrogen [Mass/volume] in Serum or Plasma 12 mg/dL 7 -18 Normal (applies to non-numeric results) [facility]) <content>note:<nlbl:demographic_changed> </content>
<content></content> ID Date Data Source [id number] 08/18/2020 09:05:00 AM EDT [facility]) Name Value Range Interpretation Code Description Data Mera rce(s) Supporting Document(s) Inr 0.93 Normal (applies to non-numeric resul ts) [facility] ([facility]) THERAPUTIC HUMAN INR VALUES INDICATIONS NORMAL RANGES PROPHYLAXIS/TREATMENT OF: VENOUS THROMBOSIS 2.0-3.0 PULMONARY EMBOLISM 2.0-3.0 PREVENTION OF SYSTEMIC EMBOLISM FROM: TISSUE HEART VALVES 2.0-3.0 ACUTE MYOCARDIAL INFARCTION 2.0-3.0 VALVULAR HEART DISEASE 2.0-3.0 ATRIAL FIBRILLATION 2.0-3.0 MECHANICAL VALVES(HIGH RISK) 2.5-3.5 RECURRENT MYOCARDIAL INFARCTION 2.5-3.5 Prothrombin Time 12.7 s 12.5-14.3 Normal (applies to non-numeric results) [facility]) Partial Thromboplastin Time 37.4 s 24.2-38.5 Norm al (applies to non-numeric results) [facility]) ID Date Data Source [id number] 08/18/2020 09:05:00 AM EDT [facility]) Name Value Range Interpretation Code Description Data Mera rce(s) Supporting Document(s) Red Blood Count 5.23 10 4.00-5.40 Normal (applies to non-numeric results) [facility]) White Blood Count 7.1 10 4.0-10.0 Normal (applies to non-numeri c results) [facility]) Mean Corpuscular Volume 84.3 fl 80.0-96.0 Normal ( applies to non-numeric results) [facility] ([facility]) Hematocrit 44.1 % 36.0-47.0 Normal (applies to non-numeric resul ts) [facility]) Hemoglobin 14.1 g/dL 12.0-15.5 Normal (applies to non-numeric resul ts) [facility]) Mean Corpuscular Hemoglobin 27.0 pg 27.0-33.0 Norm al (applies to non-numeric results) [facility]) Mean Corpuscular HGB Conc 32.0 g/dL 32.0-36.5 Normal (applies to non-numeric results) [facility]) Red Cell Distribution Width 12.6 % 11.5-14.5 Norm al (applies to non-numeric results) [facility] ([facility]) Platelet Count, Automated 280 10 150-450 Normal (applies to non-numeric results) [facility]) Neutrophils % 77.7 % 36.0-66.0 Above high normal [facility] ([facility]) Lymph % 10.6 % 24.0-44.0 Below low normal [facility] ( [facility]) [place] % 7.7 % 2.0-8.0 Normal (applies to non-numeric resul ts) [facility]) Eos % 2.7 % 0.0-3.0 Normal (applies to non-numeric resul ts) [facility]) Nucleated Red Blood Cell % 0.0 % 0-0 Normal (applies to n on-numeric results) [facility]) Baso % 0.7 % 0.0-1.0 Normal (applies to non-numeric resul ts) [facility]) Immature Granulocyte % 0.6 % 0-3.0 Normal (applies to non-n umeric results) [facility] ([facility]) Lymph # 0.8 10 1.5-5.0 Below low normal [facility] ( [facility]) Neutrophils # 5.6 10 1.5-8.5 Normal (applies to non-numeric re sults) [facility] ([facility]) [place] # 0.6 10 0.0-0.8 Normal (applies to non-numeric resul ts) [facility] ([facility]) Baso # 0.1 10 0.0-0.2 Normal (applies to non-numeric resul ts) [facility] ([facility]) Eos # 0.2 10 0.0-0.5 Normal (applies to non-numeric resul ts) [facility] ([facility]) ID Date Data Source [id number] 08/18/2020 09:05:00 AM EDT [facility]) Name Value Range Interpretation Code Description Data Mera rce(s) Supporting Document(s) Ast/Sgot 12 U/L 7-37 Normal (applies to non-numeric resul ts) [facility] ([facility]) Alt/SGPT 21 U/L 12-78 Normal (applies to non-numeric resul ts) [facility] ([facility]) Alkaline Phosphatase 234 U/L 45-117 Above high normal [facility] ([facility]) Bilirubin,Total 0.7 mg/dL 0.2-1.0 Normal (applies to non-numeric results) [facility] ([facility]) Total Protein 7.5 GM/DL 6.4-8.2 Normal (applies to non-numeric re sults) [facility] ([facility]) Bilirubin,Direct 0.2 mg/dL 0.0-0.2 Normal (applies to non-numeric results) [facility] ([facility]) Albumin 3.8 GM/DL 3.2-5.2 Normal (applies to non-numeric resul ts) [facility] ([facility]) Albumin/Globulin Ratio 1.0 1.2-2.2 Below low normal [facility] ([facility]) ID Date Data Source [id number] 08/18/2020 09:02:00 AM EDT [facility] ([facility], ) Name Value Range Interpretation Code Description Data Mera rce(s) Supporting Document(s) Levetiracetam [Mass/volume] in Serum or Plasma 20.9 ug/mL 10.0-40.0 [facility] ([facility], ) This test was developed and its performa nce characteristics determined by [facility]. It has not been cleared or approved by the Food and Drug Administration. Lamotrigine [Mass/volume] in Serum or Plasma 13.1 ug/mL 2.0-20.0 [facility] ([facility]) Detection Limit = 1.0 Performed at: [address] [id number] Cardroom Worker: Maida Weber MD, Phone: [phone] ID Date Data Source [id number] 08/18/2020 09:02:00 AM EDT [facility] ([facility], ) Name Value Range Interpretation Code Description Data Mera rce(s) Supporting Document(s) Blood Urea Nitrogen 11 mg/dL 7-18 [facility] ([facility], ) Glucose, Fasting 72 mg/dL 70-100 [facility] ([facility]) Glomerular Filtration Rate Laboratory test result [facility] ([facility]) <content>Units are mL/min/1.73 m2</content>
<content></content>
<content>Chronic Kidney Disease Staging per NKF:</content>
<content></content>
<content>Stage I & II GFR >=60 Normal to Mildly Decreased</content>
<content>Stage III GFR 30- 59 Moderately Decreased</content>
<content>Stage IV GFR 15-29 Severely Decreased</content>
<content>Stage V GFR <15 Very Little GFR Left</content>
<content>ESRD GFR <15 on BORING MACHINE OPERATOR</content>
<content></content> Creatinine For GFR 0.78 mg/dL 0.55-1.30 [facility] ([facility], ) Potassium Serum 4.8 meq/L 3.5-5.1 [facility] ([facility]) Sodium Level 141 meq/L 136-145 [facility] ([facility]) Chloride Level 106 meq/L 98-107 [facility] ([facility]) Anion Gap 4 meq/L 8-16 [facility] ([facility]) Carbon Dioxide Level 31 meq/L 21-32 [facility] ([facility]) Calcium Level 9.7 mg/dL 8.5-10.1 [facility] ([facility]) Ast/Sgot 11 U/L 7-37 [facility] ([facility]) Alt/SGPT 22 U/L 12-78 [facility] ([facility]) Alkaline Phosphatase 236 U/L 45-117 [facility] ([facility]) Total Protein 7.4 GM/DL 6.4-8.2 [facility] ([facility]) Bilirubin,Total 0.7 mg/dL 0.2-1.0 [facility] ([facility]) Albumin 3.7 GM/DL 3.2-5.2 [facility] ([facility]) Albumin/Globulin Ratio 1.0 1.2-2.2 [facility] ([facility]) ID Date Data Source [id number] 08/18/2020 09:02:00 AM EDT [facility] ([facility]) Name Value Range Interpretation Code Description Data Mera rce(s) Supporting Document(s) White Blood Count 7.1 10 4.0-10.0 [facility] ([facility], ) Hemoglobin 13.6 g/dL 12.0-15.5 [facility] ([facility]) Red Blood Count 5.12 10 4.00-5.40 [facility] ([facility]) Mean Corpuscular Volume 83.8 fl 80.0-96.0 M [facility] ([facility]) Hematocrit 42.9 % 36.0-47.0 [facility] ([facility]) Mean Corpuscular HGB Conc 31.7 g/dL 32.0-36.5 [facility] ([facility]) Red Cell Distribution Width 12.6 % 11.5-14.5 [facility] ([facility]) Mean Corpuscular Hemoglobin 26.6 pg 27.0-33.0 [facility] ([facility]) Platelet Count, Automated 289 10 150-450 [facility] ([facility]) Neutrophils % 79.0 % 36.0-66.0 [facility] ([facility]) [place] % 6.8 % 2.0-8.0 [facility] ([facility]) Lymph % 10.1 % 24.0-44.0 [facility] ([facility]) Eos % 2.5 % 0.0-3.0 [facility] ([facility]) Baso % 0.8 % 0.0-1.0 [facility] ([facility]) Immature Granulocyte % 0.8 % 0-3.0 [facility] ([facility]) Nucleated Red Blood Cell % 0.0 % 0-0 [facility] ([facility]) [place] # 0.5 10 0.0-0.8 [facility] ([facility]) Lymph # 0.7 10 1.5-5.0 [facility] ([facility]) Neutrophils # 5.6 10 1.5-8.5 [facility] ([facility]) Baso # 0.1 10 0.0-0.2 [facility] ([facility]) Eos # 0.2 10 0.0-0.5 [facility] ([facility]) ID Date Data Source [id number] 08/14/2020 10:45:00 AM EDT [facility] Name Value Range Interpretation Code Description Data Mera rce(s) Supporting Document(s) SARS-CoV-2 (COVID-19) RNA [Presence] in Respiratory specimen by GITA with probe detection Not Detected [facility] This lab was ordered by [facility] and reported by [employer] ID Date Data Source [id number] 06/29/2020 08:47:00 AM EDT [facility] ([facility]) Name Value Range Interpretation Code Description Data Mera rce(s) Supporting Document(s) Levetiracetam [Mass/volume] in Serum or Plasma 16.2 ug/mL 10.0-40.0 [facility] ([facility]) This test was developed and its performa nce characteristics determined by [facility]. It has not been cleared or approved by the Food and Drug Administration. Lamotrigine [Mass/volume] in Serum or Plasma 10.1 ug/mL 2.0-20.0 [facility] ([facility], ) Testing on this sample was performed by homogeneous enzyme immunoassay. Detection Limit = 1.0 Performed at: [facility] [address] [id number] Cardroom Worker: Maida Weebr MD, Phone: [phone] Performed at: [facility] [address] [place] [address] [id number] Cardroom Worker: Nilam Mendoza [facility], Phone: [phone] ID Date Data Source [id number] 06/29/2020 08:47:00 AM EDT [facility] ([facility]) Name Value Range Interpretation Code Description Data Mera rce(s) Supporting Document(s) Glucose, Fasting 92 mg/dL 70-100 [facility] ([facility], ) Blood Urea Nitrogen 14 mg/dL 7-18 [facility] ([facility]) Creatinine For GFR 0.74 mg/dL 0.55-1.30 [facility] ([facility]) Glomerular Filtration Rate Laboratory test result [facility] ([facility]) <content>Units are mL/min/1.73 m2</content>
<content></content>
<content>Chronic Kidney Disease Staging per NKF:</content>
<content></content>
<content>Stage I & II GFR >=60 Normal to Mildly Decreased</content>
<content>Stage III GFR 30- 59 Moderately Decreased</content>
<content>Stage IV GFR 15-29 Severely Decreased</content>
<content>Stage V GFR <15 Very Little GFR Left</content>
<content>ESRD GFR <15 on BORING MACHINE OPERATOR</content>
<content></content> Potassium Serum 4.1 meq/L 3.5-5.1 [facility] ([facility], ) Sodium Level 141 meq/L 136-145 [facility] ([facility]) Carbon Dioxide Level 28 meq/L 21-32 [facility] ([facility]) Chloride Level 107 meq/L 98-107 [facility] ([facility]) Calcium Level 9.3 mg/dL 8.5-10.1 [facility] ([facility]) Ast/Sgot 11 U/L 7-37 [facility] ([facility]) Anion Gap 6 meq/L 8-16 [facility] ([facility]) Alkaline Phosphatase 286 U/L 45-117 [facility] ([facility]) Alt/SGPT 19 U/L 12-78 [facility] ([facility]) Total Protein 7.4 GM/DL 6.4-8.2 [facility] ([facility]) Bilirubin,Total 0.4 mg/dL 0.2-1.0 [facility] ([facility]) Albumin 3.5 GM/DL 3.2-5.2 [facility] ([facility]) Albumin/Globulin Ratio 0.9 1.2-2.2 [facility] ([facility]) ID Date Data Source [id number] 06/29/2020 08:47:00 AM EDT [facility] ([facility]) Name Value Range Interpretation Code Description Data Mera rce(s) Supporting Document(s) Red Blood Count 4.84 10 4.00-5.40 [facility] ([facility]) Hemoglobin 13.6 g/dL 12.0-15.5 [facility] ([facility]) White Blood Count 7.3 10 4.0-10.0 [facility] ([facility]) Hematocrit 42.2 % 36.0-47.0 [facility] ([facility]) Mean Corpuscular Volume 87.2 fl 80.0-96.0 M [facility] ([facility]) Mean Corpuscular Hemoglobin 28.1 pg 27.0-33.0 [facility] ([facility]) Mean Corpuscular HGB Conc 32.2 g/dL 32.0-36.5 [facility] ([facility]) Platelet Count, Automated 278 10 150-450 [facility] ([facility]) Red Cell Distribution Width 12.0 % 11.5-14.5 [facility] ([facility], ) Lymph % 9.3 % 24.0-44.0 [facility] Neutrophils % 78.1 % 36.0-66.0 [facility] ([facility], ) [place] % 7.8 % 2.0-8.0 [facility] Eos % 3.3 % 0.0-3.0 [facility] ([facility], ) Baso % 0.7 % 0.0-1.0 [facility] Immature Granulocyte % 0.8 % 0-3.0 [facility] Nucleated Red Blood Cell % 0.0 % 0-0 [facility] ([facility]) Lymph # 0.7 10 1.5-5.0 [facility] ([facility]) Neutrophils # 5.7 10 1.5-8.5 [facility] ([facility], ) [place] # 0.6 10 0.0-0.8 [facility] ([facility], ) Eos # 0.2 10 0.0-0.5 [facility] ([facility]) Baso # 0.1 10 0.0-0.2 [facility] ([facility]) ID Date Data Source [id number] 06/18/2020 09:35:00 AM EDT [facility] Name Value Range Interpretation Code Description Data Mera rce(s) Supporting Document(s) SARS-CoV-2 (COVID-19) RNA [Presence] in Respiratory specimen by GITA with probe detection Not Detected [facility] This lab was ordered by [facility] and reported by [employer] ID Date Data Source [id number] 05/31/2020 08:29:00 AM EDT [facility] ([facility], ) Name Value Range Interpretation Code Description Data Mera rce(s) Supporting Document(s) Lamotrigine [Mass/volume] in Serum or Plasma 10.1 ug/mL 2.0-20.0 [facility] Testing on this sample was performed by homogeneous enzyme immunoassay. Detection Limit = 1.0 Performed at: [address] [id number] Cardroom Worker: Maida Weber MD, Phone: [phone] Performed at: [facility] [address] [place] [address] [id number] Cardroom Worker: Nilam Mendoza [facility], Phone: [phone] Levetiracetam [Mass/volume] in Serum or Plasma 32.1 ug/mL 10.0-40.0 [facility] ([facility], ) This test was developed and its performa nce characteristics determined by [facility]. It has not been cleared or approved by the Food and Drug Administration. ID Date Data Source [id number] 05/31/2020 08:29:00 AM EDT [facility]) Name Value Range Interpretation Code Description Data Mera rce(s) Supporting Document(s) Glucose, Fasting 100 mg/dL 70-100 [facility] ([facility]) Blood Urea Nitrogen 10 mg/dL 7-18 [facility] ([facility], ) Creatinine For GFR 0.69 mg/dL 0.55-1.30 [facility] ([facility]) Glomerular Filtration Rate Laboratory test result [facility] ([facility]) <content>Units are mL/min/1.73 m2</content>
<content></content>
<content>Chronic Kidney Disease Staging per NKF:</content>
<content></content>
<content>Stage I & II GFR >=60 Normal to Mildly Decreased</content>
<content>Stage III GFR 30- 59 Moderately Decreased</content>
<content>Stage IV GFR 15-29 Severely Decreased</content>
<content>Stage V GFR <15 Very Little GFR Left</content>
<content>ESRD GFR <15 on BORING MACHINE OPERATOR</content>
<content></content> Sodium Level 141 meq/L 136-145 [facility] ([facility], ) Potassium Serum 3.9 meq/L 3.5-5.1 [facility] ([facility]) Carbon Dioxide Level 31 meq/L 21-32 [facility] ([facility]) Chloride Level 107 meq/L 98-107 [facility] ([facility], ) Anion Gap 3 meq/L 8-16 [facility] ([facility]) Calcium Level 9.0 mg/dL 8.5-10.1 [facility] ([facility]) Ast/Sgot 54 U/L 7-37 [facility] ([facility]) Alt/SGPT 93 U/L 12-78 [facility] ([facility]) Alkaline Phosphatase 343 U/L 45-117 [facility] ([facility]) Total Protein 6.6 GM/DL 6.4-8.2 [facility] ([facility]) Bilirubin,Total 0.4 mg/dL 0.2-1.0 [facility] ([facility]) Albumin 3.1 GM/DL 3.2-5.2 [facility] ([facility]) Albumin/Globulin Ratio 0.9 1.2-2.2 [facility] ([facility]) ID Date Data Source [id number] 05/31/2020 08:29:00 AM EDT [facility] ([facility]) Name Value Range Interpretation Code Description Data Mera rce(s) Supporting Document(s) Red Blood Count 4.70 10 4.00-5.40 [facility] ([facility]) White Blood Count 6.2 10 4.0-10.0 [facility] ([facility]) Hemoglobin 13.2 g/dL 12.0-15.5 [facility] ([facility], ) Hematocrit 40.9 % 36.0-47.0 [facility] ([facility], ) Mean Corpuscular Volume 87.0 fl 80.0-96.0 M [facility] ([facility], ) Mean Corpuscular HGB Conc 32.3 g/dL 32.0-36.5 [facility] ([facility]) Mean Corpuscular Hemoglobin 28.1 pg 27.0-33.0 [facility] ([facility]) Red Cell Distribution Width 12.6 % 11.5-14.5 [facility] ([facility]) Platelet Count, Automated 241 10 150-450 [facility] ([facility]) Lymph % 12.1 % 24.0-44.0 [facility] ([facility], ) Neutrophils % 73.1 % 36.0-66.0 [facility] ([facility], ) [place] % 9.2 % 2.0-8.0 [facility] ([facility]) Eos % 3.4 % 0.0-3.0 [facility] ([facility]) Baso % 0.6 % 0.0-1.0 [facility] ([facility]) Nucleated Red Blood Cell % 0.0 % 0-0 [facility] Immature Granulocyte % 1.6 % 0-3.0 [facility] ([facility]) Lymph # 0.8 10 1.5-5.0 [facility] ([facility]) Neutrophils # 4.6 10 1.5-8.5 [facility] ([facility]) [place] # 0.6 10 0.0-0.8 [facility] ([facility]) Eos # 0.2 10 0.0-0.5 [facility] ([facility]) Baso # 0.0 10 0.0-0.2 [facility] ([facility]) ID Date Data Source [id number] 05/03/2020 07:31:00 AM EST [facility] ([facility]) Name Value Range Interpretation Code Description Data Mera rce(s) Supporting Document(s) Levetiracetam [Mass/volume] in Serum or Plasma 7.9 ug/mL 10.0-40.0 [facility] ([facility], ) This test was developed and its performa nce characteristics determined by [facility]. It has not been cleared or approved by the Food and Drug Administration. Lamotrigine [Mass/volume] in Serum or Plasma 7.2 ug/mL 2.0-20.0 [facility] ([facility], ) Testing on this sample was performed by homogeneous enzyme immunoassay. Detection Limit = 1.0 Performed at: [address] [id number] Cardroom Worker: Maida Weber MD, Phone: [phone] Performed at: [employer] [address] [id number] Cardroom Worker: Nilam Mendoza [facility], Phone: [phone] ID Date Data Source [id number] 05/03/2020 07:31:00 AM EST [facility] ([facility]) Name Value Range Interpretation Code Description Data Mera rce(s) Supporting Document(s) Glucose, Fasting 74 mg/dL 70-100 [facility] ([facility], ) Blood Urea Nitrogen 13 mg/dL 7-18 [facility] ([facility], ) Creatinine For GFR 0.81 mg/dL 0.55-1.30 [facility] ([facility]) Sodium Level 142 meq/L 136-145 [facility] ([facility]) Glomerular Filtration Rate Laboratory test result [facility] ([facility]) <content>Units are mL/min/1.73 m2</content>
<content></content>
<content>Chronic Kidney Disease Staging per NKF:</content>
<content></content>
<content>Stage I & II GFR >=60 Normal to Mildly Decreased</content>
<content>Stage III GFR 30- 59 Moderately Decreased</content>
<content>Stage IV GFR 15-29 Severely Decreased</content>
<content>Stage V GFR <15 Very Little GFR Left</content>
<content>ESRD GFR <15 on BORING MACHINE OPERATOR</content>
<content></content> Potassium Serum 4.1 meq/L 3.5-5.1 [facility] ([facility]) Chloride Level 105 meq/L 98-107 [facility] ([facility]) Anion Gap 8 meq/L 8-16 [facility] ([facility]) Calcium Level 9.2 mg/dL 8.5-10.1 [facility] ([facility]) Carbon Dioxide Level 29 meq/L 21-32 [facility] ([facility]) Alt/SGPT 38 U/L 12-78 [facility] ([facility]) Ast/Sgot 22 U/L 7-37 [facility] ([facility]) Alkaline Phosphatase 263 U/L 45-117 [facility] ([facility]) Bilirubin,Total 0.5 mg/dL 0.2-1.0 [facility] ([facility]) Total Protein 6.8 GM/DL 6.4-8.2 [facility] ([facility]) Albumin 3.6 GM/DL 3.2-5.2 [facility] ([facility]) Albumin/Globulin Ratio 1.1 1.2-2.2 [facility] ([facility]) ID Date Data Source [id number] 05/03/2020 07:31:00 AM EST [facility] ([facility]) Name Value Range Interpretation Code Description Data Mera rce(s) Supporting Document(s) White Blood Count 5.0 10 4.0-10.0 [facility] ([facility]) Hemoglobin 13.7 g/dL 12.0-15.5 [facility] ([facility]) Red Blood Count 4.92 10 4.00-5.40 [facility] ([facility]) Hematocrit 42.8 % 36.0-47.0 [facility] ([facility]) Mean Corpuscular Volume 87.0 fl 80.0-96.0 [facility] ([facility]) Mean Corpuscular Hemoglobin 27.8 pg 27.0-33.0 [facility] ([facility]) Red Cell Distribution Width 13.1 % 11.5-14.5 [facility] ([facility]) Mean Corpuscular HGB Conc 32.0 g/dL 32.0-36.5 [facility] ([facility]) Neutrophils % 65.6 % 36.0-66.0 [facility] ([facility]) Platelet Count, Automated 248 10 150-450 [facility] [facility]) [place] % 11.9 % 2.0-8.0 [facility] Lymph % 16.3 % 24.0-44.0 [facility] ([facility]) Eos % 4.8 % 0.0-3.0 [facility] ([facility]) Baso % 1.2 % 0.0-1.0 [facility] ([facility]) Nucleated Red Blood Cell % 0.0 % 0-0 MED ENT ([facility]) Immature Granulocyte % 0.2 % 0-3.0 MED[facility] ([facility]) Lymph # 0.8 10 1.5-5.0 MEDENT ([facility], ) Neutrophils # 3.3 10 1.5-8.5 MEDENT ([facility], ) [place] # 0.6 10 0.0-0.8 MED[facility] ([facility], ) Eos # 0.2 10 0.0-0.5 MED[facility] ([facility], ) Baso # 0.1 10 0.0-0.2 [facility] ([facility], ) ID Date Data Source [id number] 04/12/2020 11:09:00 AM EST MEDENT ([facility]) Name Value Range Interpretation Code Description Data Mera rce(s) Supporting Document(s) Lamotrigine [Mass/volume] in Serum or Plasma 6.7 ug/mL 2.0-20.0 MEDENT ([facility], ) Testing on this sample was performed by homogeneous enzyme immunoassay. Detection Limit = 1.0 Performed at: [employer] [place] [address] Cardroom Worker: Nilam Mendoza [facility], Phone: [phone] ID Date Data Source [id number] 04/12/2020 11:09:00 AM EST MEDENT ([facility]) Name Value Range Interpretation Code Description Data Mera rce(s) Supporting Document(s) Glucose, Fasting 86 mg/dL 70-100 MED[facility] ([facility], ) Creatinine For GFR 0.86 mg/dL 0.55-1.30 MED[facility] ([facility], ) Blood Urea Nitrogen 12 mg/dL 7-18 MED[facility] ([facility], ) Glomerular Filtration Rate Laboratory test result [facility] ([facility]) <content>Units are mL/min/1.73 m2</content>
<content></content>
<content>Chronic Kidney Disease Staging per NKF:</content>
<content></content>
<content>Stage I & II GFR >=60 Normal to Mildly Decreased</content>
<content>Stage III GFR 30- 59 Moderately Decreased</content>
<content>Stage IV GFR 15-29 Severely Decreased</content>
<content>Stage V GFR <15 Very Little GFR Left</content>
<content>ESRD GFR <15 on BORING MACHINE OPERATOR</content>
<content></content> Sodium Level 141 meq/L 136-145 MED[facility] ([facility]) Potassium Serum 4.3 meq/L 3.5-5.1 MED[facility] ([facility]) Chloride Level 105 meq/L 98-107 MED[facility] ([facility]) Carbon Dioxide Level 28 meq/L 21-32 [facility] ([facility]) Anion Gap 8 meq/L 8-16 [facility] ([facility]) Calcium Level 10.0 mg/dL 8.5-10.1 [facility] ([facility]) Ast/Sgot 27 U/L 7-37 [facility] ([facility]) Alt/SGPT 42 U/L 12-78 [facility] ([facility]) Bilirubin,Total 0.8 mg/dL 0.2-1.0 [facility] ([facility]) Alkaline Phosphatase 487 U/L 45-117 MED[facility] ([facility]) Total Protein 6.9 GM/DL 6.4-8.2 MED[facility] ([facility]) Albumin/Globulin Ratio 1.0 1.2-2.2 [facility] ([facility]) Albumin 3.5 GM/DL 3.2-5.2 [facility] ([facility]) ID Date Data Source HEPATITIS B SURFACE ANTIGEN 2020 12:00:00 AM EST eCW1 ([facility]) Name Value Range Interpretation Code Description Data Mera rce(s) Supporting Document(s) NEGATIVE NEGATIVE HEPATITIS B SURFACE ANTIG EN eCW1 ([facility]) ID Date Data Source HEPATITIS C ANTIBODY INDEX 2020 12:00:00 AM EST eCW1 ( [facility]) Name Value Range Interpretation Code Description Data Mera rce(s) Supporting Document(s) < 0.0 <0.8 HEPATITIS C VIRUS JOSE JUAN IND EX eCW1 ([facility]) ID Date Data Source HEPATITIS B SURFACE ANTIBODY 2020 12:00:00 AM EST eCW1 ([facility]) Name Value Range Interpretation Code Description Data Mera rce(s) Supporting Document(s) NEGATIVE POSITIVE HEPATITIS B SURFACE ANTIB SAUL eCW1 ([facility]) ID Date Data Source HEPATITIS A ANTIBODY IGM 2020 12:00:00 AM EST eCW1 ([facility]) Name Value Range Interpretation Code Description Data Mera rce(s) Supporting Document(s) NEGATIVE NEGATIVE HEPATITIS A ANTIBODY IGM eCW1 ([facility]) ID Date Data Source GAMMA GLUTAMYLTRANSPEPTIDASE 2020 12:00:00 AM EST eCW1 ([facility]) Name Value Range Interpretation Code Description Data Mera rce(s) Supporting Document(s) 320 5-55 GAMMA GLUTAMYLTRANSPEPTIDASE e CW1 ([facility]) ID Date Data Source [id number] 03/23/2020 09:39:00 AM EST MEDENT ([facility], ) Name Value Range Interpretation Code Description Data Mera rce(s) Supporting Document(s) Valproate [Mass/volume] in Serum or Plasma 59.4 UG/ML 50.0-100.0 MEDENT ([facility], ) <content>note:<nlbl:demographic_changed> </content>
<content></content> Lamotrigine [Mass/volume] in Serum or Plasma 14.5 ug/mL 2.0-20.0 MEDENT ([facility], ) Testing on this sample was performed by homogeneous enzyme immunoassay. Detection Limit = 1.0 Performed at: [employer] [address] [place] [address] [id number] Cardroom Worker: Nilam Mendoza [facility], Phone: [phone] ID Date Data Source [id number] 03/14/2020 10:17:00 AM EST [facility] Name Value Range Interpretation Code Description Data Mera rce(s) Supporting Document(s) Respiratory specimen severe acute respir atory syndrome coronavirus 2 (SARS-CoV-2) RNA [facility] This lab was ordered by Stephanie porras and reported by . ID Date Data Source [id number] 03/14/2020 10:14:00 AM EST [facility] Name Value Range Interpretation Code Description Data Mera rce(s) Supporting Document(s) Respiratory specimen severe acute respir atory syndrome coronavirus 2 (SARS-CoV-2) RNA [facility] and reported by . ID Date Data Source [id number] 03/14/2020 10:14:00 AM EST [facility] Name Value Range Interpretation Code Description Data Mera rce(s) Supporting Document(s) Respiratory specimen severe acute respir atory syndrome coronavirus 2 (SARS-CoV-2) RNA [facility] This lab was ordered by [facility] vern and reported by . ID Date Data Source [id number] 03/10/2020 08:32:00 AM [facility] Name Value Range Interpretation Code Description Data Mera rce(s) Supporting Document(s) SARS-CoV-2 RNA INHOUSE Negative Normal (applies to non-n umeric results) [facility] THIS IS A [facility] REPORTABLE COMMUNICABLE DISEASE. Testing was performed using the [employer] COVID-19 MDx Assay. This test has been [...] be found at the following links: Providers: https://www.fda.gov/media/490393/download Patients : https://www.fda.gov/media/905030/download THIS IS A [facility] REPORTABLE COMMUNICABLE DISEASE Negative results do not preclude SARS-CoV-2 infection and should not be used as the sole basis for patient management decisions. Negative results must be combined with clinical observations,patient history, and epidemiological information. ID Date Data Source [id number] 03/03/2020 06:48:00 PM [facility] Name Value Range Interpretation Code Description Data Mera rce(s) Supporting Document(s) SARS-CoV-2 RNA INHOUSE Negative Normal (applies to non-n umeric results) [facility] THIS IS A [facility] REPORTABLE COMMUNICABLE DISEASE. Testing was performed using the [employer] COVID-19 MDx Assay. This test has been [...] be found at the following links: Providers: https://www.[employer].gov/media/817845/download Patients : https://www.fda.gov/media/902658/download THIS IS A [facility] REPORTABLE COMMUNICABLE DISEASE Negative results do not preclude SARS-CoV-2 infection and should not be used as the sole basis for patient management decisions. Negative results must be combined with clinical observations,patient history, and epidemiological information. ID Date Data Source [id number] 02/23/2020 07:15:00 AM [facility] Name Value Range Interpretation Code Description Data Mera rce(s) Supporting Document(s) SARS-CoV-2 GITA result Not Detected Normal (applies to non- numeric results) [facility] This nucleic acid amplification test was developed and its performance characteristics determined by [employer]. Nucleic acid amplification tests include PCR and [...] detected) result in this assay. Performed at: [facility] [address] [place], [place] [id number] Cardroom Worker: Nelsy Ordoñez PhD, Phone: [phone] Testing was performed using the [employer] SARS-CoV-2 assay. This nucleic acid amplification test was developed and its performance characteristics determined by [employer]. Nucleic acid amplification tests include PCR and [...] detected) result in this assay. Performed at: [address] [id number] Cardroom Worker: Ana Taylor MD, Phone: [phone] ID Date Data Source [id number] 02/11/2020 11:29:00 AM EST [facility] Name Value Range Interpretation Code Description Data Mera rce(s) Supporting Document(s) SARS coronavirus 2 RNA [facility] This lab was ordered by Cathi woods and reported by [facility]. ID Date Data Source [id number] 02/14/2020 02:39:00 PM [facility] Name Value Range Interpretation Code Description Data Mera rce(s) Supporting Document(s) COVID-19 Result Not Detected Normal (applies to non-numeri c results) [facility] This nucleic acid amplification test was developed and its performance characteristics determined by [employer]. Nucleic acid amplification tests include PCR and [...] detected) result in this assay. Performed at: [facility] [address] [id number] Cardroom Worker: Nelsy Ordoñez PhD, Phone: [phone] Testing was performed using the [employer] SARS-CoV-2 assay. This nucleic acid amplification test was developed and its performance characteristics determined by [employer]. Nucleic acid amplification tests include PCR and [...] detected) result in this assay. Performed at: [address] [id number] Cardroom Worker: Ana Taylor MD, Phone: [phone] ID Date Data Source [id number] 01/16/2020 12:26:11 PM [facility] Name Value Range Interpretation Code Description Data Mera e(s) Supporting Document(s) Discharge Summary [facility] QHMSHz6hJmEMEfHg57/SJZprXBOeg0QyBMyeZMq1EFbkJNLgF1PfHKR4xD6cDLB5XCeCJtYsHmXkYDH3 m [file] DiOGX0JbC9MWDqFyJrXMmaO3U4XB1cJKUQUw4+BDtnqIAxcTigXCVJBxGvDeV0RPbiDMNLQx4N ID Date Data Source [id number] 01/15/2020 03:36:41 PM [facility] Name Value Range Interpretation Code Description Data Mera rce(s) Supporting Document(s) History and Physical [facility] VVIIHa0pIpVTNrZq20/DPJhpXGMrt5PhPSvuSRv9GSusQNHsJ4KsYCI0hZ8xCES3TQxHSeLsJdTcPBE9 lbm [file] worker [file] ICAgICAgICAgICAgICAgICAgICAgICAgICAgICAgICAgICAgICAgICAgICAgICAgICAgICAgICAgICAg ICAgICAgICAgICAgICAgICAgICAgICAgICAgICAgDQogICAgICAgICAgICAgICAgICAgICAgICAgICAg ICAgICAgICAgICAgICAgICAgICAgICAgICAgICAgIC AgICAgICAgICAgICAgICAgICAgICAgICAgICAgICAgICAgICAgICAgDQogICAgICAgICAgICAgICAgIC AgICAgICAgICAgICAgICAgICAgICAgICAgICAgICAgICAgICAgICAgICAgICAgICAgICAgICAgICAgIC AgICAgICAgICAgICAgICAgICAgICAgDQogICAgICAg ICAgICAgICAgICAgICAgICAgICAgICAgICAgICAgICAgICAgICAgICAgICAgICAgICAgICAgICAgICAg ICAgICAgICAgICAgICAgICAgICAgICAgICAgICAgICAgDQogICAgICAgICAgICAgICAgICAgICAgICAg ICAgICAgICAgICAgICAgICAgICAgICAgICAgICAgIC AgICAgICAgICAgICAgICAgICAgICAgICAgICAgICAgICAgICAgICAgICAgDQogICAgICAgICAgICAgIC AgICAgICAgICAgICAgICAgICAgICAgICAgICAgICAgICAgICAgICAgICAgICAgICAgICAgICAgICAgIC AgICAgICAgICAgICAgICAgICAgICAgICAgDQogICAg ICAgICAgICAgICAgICAgICAgICAgICAgICAgICAgICAgICAgICAgICAgICAgICAgICAgICAgICAgICAg ICAgICAgICAgICAgICAgICAgICAgICAgICAgICAgICAgICAgDQogICAgICAgICAgICAgICAgICAgICAg ICAgICAgICAgICAgICAgICAgICAgICAgICAgICAgIC AgICAgICAgICAgICAgICAgICAgICAgICAgICAgICAgICAgICAgICAgICAgICAgDQogICAgICAgICAgIC AgICAgICAgICAgICAgICAgICAgICAgICAgICAgICAgICAgICAgICAgICAgICAgICAgICAgICAgICAgIC AgICAgICAgICAgICAgICAgICAgICAgICAgICAgDQog ICAgICAgICAgICAgICAgICAgICAgICAgICAgICAgICAgICAgICAgICAgICAgICAgICAgICAgICAgICAg MARjEPTkYKNjVUEbALUnTVIfEJJgWVVmYFWaYSNmVYOpJNVlSNOlGMy7D5vzOCDhUAYoNF3eKVx5Sq7+ BPrSJdNvVRQ0xtDuiY2CZX9bo3TlJFtxNZVsy7RtXK u9CO5OVWMaRNopUR1YSVcfsa9BWBHvYAVfgYASx9vvVsEiFWQ4MGMiHsesEL4PZXRjM8bmygXdEZUcQJ JNMTnbCJGCZRlnLZEBZDDpFMDhLdIzVoUpULEdBUOpKAMBSND7BDHeXfZjBOgjUC0En8WgmTB0XOm+Pg 2SAI8ik8TlSHuhUKVuEI6wau0JOZsJHvPvI8DpdcE7 EJY1WURqDe4XSKKhVGRpmAJyFUBrEKAPUlFgV2IorE45JQUMOy7+MEqrkcYeSuvWPyM9RVVfw9AtMHc1 GK8XASRqCAa9gLBoBPQJXPX2BZTuhRIjZDMHUXYmvOutXSGySAIeTYKnGs3hIJMgWXSxAjO0HRWUUL2D SRDqNCUjjYAqDYKySGJOBC6SSFivTJO1DYQrycTrsN SyJGgnPB5IAXKlnqYaZrEaAIVJVAx+Yy1COL8zi5PdUDedElWxPF4eza9SLOaGHnHpU0J4bWBbN3O0AV xwFk1XGBCgDKHoSmMnWXDVSRojQW8DMP4fhdS8RX5PvHQpFEWaRRBacCPaFUu9P90hnIVrKRjrMM5ZUL A+Dania+Up9EXWTiJRXaCEOtGcGiWESZYpZeM2MfC1PI p9JdX2GkDM23uZexamAyUIvtCJ5GTG7qUGCdCCGOSG9CyJYnjR2lxxDaXCPoJJFITiChS97urOZkEOZg UPIvYQAaAn7RNCBbH3HubjUkhVbttbFuGVZqMYIKFD7PCFccyrDqcJGryFzxWI26tFcqQN4PIh1JDzBa SF1eyz2SuVSeHc6ZXXQjQc7HLTSuMJSfYWCaUXP0ED SyQgSaAEglPGLwUVIoVKX1DGWnIUEqKH3URdYfDITqIea8VPEzTLRrXINrso6POUYsBCA4FMUaVDCgGV WlFIMnGAdoJABtBSDeWAJ3IVMoFRYaIT0UVpPaRWUpNYOvKNOeCJOmJNBjii2MVLDvAZAcORQ6BPMfOW TyRZQzRDkgTRYnWPF0JDK5JGTpDUCtCL3LZkYjIDXi UPrwGbQrDHQqYQQdxo2SLIKpWNOlGEq2RGDeGOGiNBVbNQbaVANfKNQyLVj7ZSUuGTSeAD0WErZmENYw PHQ3YbLlMYQyJFGuoe4TZZIjUPAfEDdjJWBjOQDwBUHyAOhnFCWsUKN9SgL5BMTmLHFtQX8YOyVpFRXb ZWq5HvXjUFNsNIVwph3FTOTaCWDaOErbLrSfLDPnXR YwUNnaBWShKJAdLDT3VMQyFDFcHV6ITkAwOQIjHmF7EQRaXAXaSEWsqx6BJPQlFBCeVyT7ZpSxGFUuKS LlGFkxCPGzGXJnMYL3AVItISHqME2ANgZaDNPhUfGiNVHzQHGbDUYmmq4DONLtGSLoReC8LyPgYYBhVF EyGAnsQYHdLNZ1VtV1ELMvVSVeDR6TPzWdLBOmFgF3 KSokLBHdTJNdbn1EDMOeBFPmLPn7COUhAYDeKVUpJCvoZUUlWCW4SpD8XSOmGNLdMI8LNoCfVYNfBgK5 KIYvOLKvEQZzgr3WBVWyXCDiOoO2QOBlBLIgSCMaLXatBFCqKIH7ARylYBArBWYyEN8QGeSxGQYzUfz8 ADerBULoPBXjcj8JGCSgAJRlZyt5BsSmYFDsEPTjBS bzWBPcOFD7WpJ1EOKxTMXvUC1PWnHmTJDwGtibCYWmAHQxUAYbfn3CDFNbPLSiWSt5DQJrCJXnJLRgZX feDTTbDZYmRge7JHRcSTGqQN1HRjWxOASeWXEdZPseGDGeUBMwpc6ZZQOhFRV9JFI7JZBhTRKgZIHnOH o8qfClmNEnGPz0NK9XE0DdhnWjBssZTm8Ik518KFJ5 XNVrEt1FK2jdXw3rPGEvPVKIBe9NJFf1BImoK9SpASAsUCKzMvW3EpZzFBqiYyRdHdt8UvXoOOU+IDww J4PvOeKjG6A2BcTzDNonVsXqANJ9TSGwHqQ9XbFsGZ1tWYPIIt5+AVcofHGfpJgoZMJOGiOtNcI1IByj ZYBUFh0Q ID Date Data Source [id number] 01/13/2020 09:31:45 AM [facility] Value Range Interpretation Code Description Data Mera rce(s) Supporting Document(s) Lamotrigine [Mass/volume] in Serum or Plasma 6.4 ug/mL 3.0-14.0 [facility] ID Date Data Source [id number] 01/11/2020 04:48:59 PM [facility] Value Range Interpretation Code Description Data Mera rce(s) Supporting Document(s) Lamotrigine [Mass/volume] in Serum or Plasma 10.0 ug/mL 3.0-14.0 [facility] ID Date Data Source [id number] 01/11/2020 12:16:16 PM [facility] Value Range Interpretation Code Description Data Mera rce(s) Supporting Document(s) Lamotrigine [Mass/volume] in Serum or Plasma 3.0-14.0 [facility] Specimen HemolyzedNotified [id number] /EMU 01/11/20 [id number]. ID Date Data Source [id number] 01/11/2020 12:40:51 PM [facility] Value Range Interpretation Code Description Data Mera rce(s) Supporting Document(s) Choriogonadotropin.beta subunit [Moles/volume] in Serum or Plasma <5 [facility] ID Date Data Source [id number] 01/19/2020 10:40:00 AM [facility] First test? NOEmployed in healthcare? NOSymptomatic per CDC? NOHospitalized? NOICU? NOResident in congregated care? ex half-way, ARC NO? NO Name Value Range Interpretation Code Description Data Mera rce(s) Supporting Document(s) SARS-CoV-2 RNA Negative Normal (applies to non-numeric r esults) [facility] Negative results should be treated as pr [...] Certificate of Accreditation. Factsheets for healthcare providers: https://www.fda.gov/media/665083/download Factsheets for patients: https://www.fda.gov/media/585464/download The [employer] Instrument is a rapid molecular in vitro diagnostic test utilizing an isothermal nucleic acid amplification technology intended for the qualitative detection of nucleic acid from the SARS-CoV-2 viral RNA. THIS IS A STATE REPORTABLE COMMUNICABLE DISEASE. Manual entry verified by Mayelin Denson 01/19/20 1038 ID Date Data Source [id number] 01/19/2020 12:50:00 PM EST [facility] COVID-19 Patient Ethnicity Not or LatinoCOVID-19 Patient Race WhiteCOVID-19 Specimen Source Nasopharyngeal Name Value Range Interpretation Code Description Data Mera rce(s) Supporting Document(s) SARS-CoV-2 Specimen Source Normal (applies to n on-numeric results) [facility] SARS-CoV-2 RNA Normal (applies to non-numeric r esults) [facility] Patient Race Normal (applies to non-numeric result s) [facility] Patient Ethnicity Normal (applies to non-numeri c results) [facility] See scanned report ID Date Data Source [id number] 12/10/2019 08:10:00 AM EDT MEDENT ([facility], ) Name Value Range Interpretation Code Description Data Mera rce(s) Supporting Document(s) FVC-Pred 4.03 L MEDENT ([facility], ) PDFReport Laboratory test result MEDENT ([facility], ) FVC-LLN 3.29 L MEDENT ([facility]) FVC-%Pred-Pre 30 L MEDENT ([facility]) FVC-Pre 1.22 L MEDENT ([facility]) Fev1-Pred 3.40 L MEDENT ([facility]) Fev1-Pre 1.21 L MEDENT ([facility]) Fev1-%Pred-Pre 35 L MEDENT ([facility]) Fev1-LLN 2.77 L MEDENT ([facility]) Fev6-Pre 1.22 L MEDENT ([facility]) Fev6-Pred 3.99 L MEDENT ([facility]) Fev6-%Pred-Pre 30 L MEDENT ([facility]) Fev6-LLN 3.27 L MEDENT ([facility]) Xql5yib-Bqw 99 % MEDENT ([facility]) Vvh6eef-Zblu 85 % MEDENT ([facility]) Wll9cre-Zxdd 99 % MEDENT ([facility]) Kns5mky-QOS 75 % MEDENT ([facility]) Swi4ubw-%Pred-Pre 116 % MEDENT ([facility]) FEFMax-Pred 7.30 L/E/sec MEDENT ([facility]) Bjs8brf-Img 100 % MEDENT ([facility]) Fcm5rto-%Pred-Pre 100 % MEDENT ([facility]) FEFMax-%Pred-Pre 26 L/E/sec MEDENT ([facility]) FEFMax-Pre 1.96 L/E/sec MEDENT ([facility]) FEFMax-LLN 5.48 L/E/sec MEDENT ([facility]) Hus9998-Eesj 3.61 L/E/sec MEDENT ([facility]) Zor4453-FRS 2.29 L/E/sec MEDENT ([facility]) Xip7079-%Pred-Pre 45 L/E/sec MEDENT ([facility]) Ptr6541-Ajp 1.64 L/E/sec MEDENT ([facility]) ExpTime-Pre 1.59 sec MEDENT ([facility]) Dzi5iti2-Lddz 86 % MEDENT ([facility]) Byh3jaj1-%Pred-Pre 115 % MEDENT ([facility]) Aft8krn3-Ego 99 % MEDENT ([facility]) Ybq6pmz6-BYE 77 % MEDENT ([facility]) ID Date Data Source [id number] 11/06/2019 03:49:00 PM EDT MEDENT ([facility]) Name Value Range Interpretation Code Description Data Mera rce(s) Supporting Document(s) Lamotrigine [Mass/volume] in Serum or Plasma 9.0 ug/mL 2.0-20.0 [facility] Testing on this sample was performed by homogeneous enzyme immunoassay. Detection Limit = 1.0 Performed at: [employer] [address] [place] [id number] Cardroom Worker: Nilam Mendoza [facility], Phone: [phone] Procedure Social History Code Duration Value Status Description Data Source(s ) Smoking 11/25/2020 12:00:00 AM EDT Patient has never smoked co mpleted Patient has never smoked MEDENT ([facility]) Smoking 09/06/2020 12:00:00 AM EDT Never Smoker completed Never S moker eCW1 ([facility]) Smoking 07/26/2020 12:00:00 AM EDT Never Smoker completed Never S moker eCW1 ([facility]) Smoking 07/26/2020 12:00:00 AM EDT Never Smoker completed Never S moker eCW1 ([facility]) Smoking 07/26/2020 12:00:00 AM EDT Never Smoker completed Never S moker eCW1 ([facility]) Smoking 04/27/2020 12:00:00 AM EST Never Smoker completed Never S moker eCW1 ([facility]) Smoking 04/27/2020 12:00:00 AM EST Never Smoker completed Never S moker eCW1 ([facility]) Smoking 03/28/2020 12:00:00 AM EST Never Smoker completed Never S moker eCW1 ([facility]) Smoking 03/28/2020 12:00:00 AM EST Never Smoker completed Never S moker eCW1 ([facility]) Smoking 03/28/2020 12:00:00 AM EST Never Smoker completed Never S moker eCW1 ([facility]) Smoking 03/28/2020 12:00:00 AM EST Never Smoker completed Never S moker eCW1 ([facility]) Smoking 03/28/2020 12:00:00 AM EST Never Smoker completed Never S moker eCW1 ([facility]) Smoking 03/28/2020 12:00:00 AM EST Never Smoker completed Never S moker eCW1 ([facility]) Smoking 03/10/2020 12:00:00 AM EST Never Smoker completed Never S moker eCW1 ([facility]) Alcohol intake 01/11/2020 12:00:00 AM EST Lifetime non-drinker (finding) completed Lifetime non-drinker (finding) [facility] ital Tobacco use and exposure 01/11/2020 12:00:00 AM EST Never used co mpleted Never used [facility] Smoking 01/11/2020 12:00:00 AM EST Never smoker completed Never [facility] Vital Signs ID Date Data Source UNK Name Value Range Interpretation Code Description Data Source(s) Systolic blood pressure 116 mm[Hg] 116 mm[Hg] M EDENT ([facility]) Diastolic blood pressure 74 mm[Hg] 74 mm[Hg] [facility] ([facility]) Heart rate 79 /min 79 /min [facility] ([facility]) Oxygen saturation in Arterial blood by Pulse oximetry 98 % 98 % [facility] ([facility]) Body height 67 [in_i] 67 [in_i] [facility] ([facility]) 5'7" Body weight 186.00 [lb_av] 186.00 [lb_av] MEDEN T ([facility]) Body mass index (BMI) [Ratio] 29.1 kg/m2 29.1 k g/m2 [facility] ([facility]) [place] body weight 135 [lb_av] 135 [lb_av] MEDEN T ([facility]) Body weight 84.370 kg 84.370 kg [facility] ([facility]) Body surface area Derived from formula 1.96 m2 1.96 m2 [facility] ([facility]) Diastolic blood pressure 80 mm[Hg] 80 mm[Hg] [facility] ([facility]) Heart rate 84 /min 84 /min [facility] ([facility]) Respiratory rate 16 /min 16 /min [facility] ( [facility]) Systolic blood pressure 110 mm[Hg] 110 mm[Hg] [facility] ([facility]) Body weight 185.00 [lb_av] 185.00 [lb_av] MEDEN T ([facility]) Body mass index (BMI) [Ratio] 29.0 kg/m2 29.0 k g/m2 [facility] ([facility]) [place] body weight 135 [lb_av] 135 [lb_av] MEDEN T ([facility]) Body weight 83.916 kg 83.916 kg [facility] ([facility]) Body surface area Derived from formula 1.96 m2 1.96 m2 [facility] ([facility]) Body height 67 [in_i] 67 [in_i] [facility] ([facility]) 5'7" Body weight 186 [lb_av] 186 [lb_av] eCW1 ([facility]) Body height 67 [in_i] 67 [in_i] eCW1 ([facility]) Body weight 84.37 kg 84.37 kg eCW1 ([facility]) Systolic blood pressure 130 mm[Hg] 130 mm[Hg] e CW1 ([facility]) Diastolic blood pressure 82 mm[Hg] 82 mm[Hg] eCW1 ([facility] [facility] Body mass index (BMI) [Ratio] 29.13 kg/m2 29.13 kg/m2 eCW1 ([facility]) Body weight 190.2 [lb_av] 190.2 [lb_av] eCW1 ([facility], [facility]) Body temperature 97.5 [degF] 97.5 [degF] eCW1 ( [facility]) Systolic blood pressure 108 mm[Hg] 108 mm[Hg] e CW1 ([facility]) Diastolic blood pressure 74 mm[Hg] 74 mm[Hg] eCW1 ([facility]) Body height 67 [in_i] 67 [in_i] eCW1 ([facility]) Body mass index (BMI) [Ratio] 29.79 kg/m2 29.79 kg/m2 W1 ([facility]) Heart rate 95 /min 95 /min eCW1 ([facility]) Respiratory rate 18 /min 18 /min eCW1 ([facility]) Systolic blood pressure 110 mm[Hg] 110 mm[Hg] M EDENT ([facility], ) Diastolic blood pressure 80 mm[Hg] 80 mm[Hg] MEDENT ([facility], ) Heart rate 76 /min 76 /min MEDENT ([facility], ) Respiratory rate 16 /min 16 /min MEDENT ( [facility], ) Body height 67 [in_i] 67 [in_i] MEDENT ([facility], ) 5'7" Body weight 194.00 [lb_av] 194.00 [lb_av] MEDEN T ([facility], ) Body mass index (BMI) [Ratio] 30.4 kg/m2 30.4 k g/m2 [facility] ([facility]) [place] body weight 135 [lb_av] 135 [lb_av] MEDEN T ([facility]) Body weight 87.998 kg 87.998 kg [facility] ([facility]) Body surface area Derived from formula 2.00 m2 2.00 m2 [facility] ([facility]) Body height 67 [in_i] 67 [in_i] [facility] ([facility]) 5'7" Body mass index (BMI) [Ratio] 30.4 kg/m2 30.4 k g/m2 [facility] ([facility]) [place] body weight 135 [lb_av] 135 [lb_av] MEDEN T ([facility]) Systolic blood pressure 122 mm[Hg] 122 mm[Hg] [facility] Diastolic blood pressure 68 mm[Hg] 68 mm[Hg] [facility] ([facility]) Body surface area Derived from formula 2.00 m2 2.00 m2 [facility] ([facility]) Body weight 194.00 [lb_av] 194.00 [lb_av] MEDEN T ([facility]) Body weight 87.998 kg 87.998 kg [facility] ([facility]) Oxygen saturation in Arterial blood by Pulse oximetry 98 % 98 % [facility] ([facility]) Diastolic blood pressure 88 mm[Hg] 88 mm[Hg] [facility] ([facility]) Heart rate 62 /min 62 /min [facility] ([facility]) Body temperature 96.2 [degF] 96.2 [degF] [facility] ([facility]) Body height 66 [in_i] 66 [in_i] [facility] ([facility]) 5'6" Body weight 192.00 [lb_av] 192.00 [lb_av] MEDEN T ([facility]) Body mass index (BMI) [Ratio] 31.0 kg/m2 31.0 k g/m2 [facility] ([facility]) [place] body weight 130 [lb_av] 130 [lb_av] MEDEN T ([facility]) Systolic blood pressure 120 mm[Hg] 120 mm[Hg] [facility] Body weight 87.091 kg 87.091 kg [facility] ([facility]) Body surface area Derived from formula 1.97 m2 1.97 m2 [facility] ([facility]) Oxygen saturation in Arterial blood by Pulse oximetry 98 % 98 % [facility] ([facility]) Body temperature 96.2 [degF] 96.2 [degF] [facility] ([facility]) Body height 66 [in_i] 66 [in_i] [facility] ([facility]) 5'6" Body weight 192.00 [lb_av] 192.00 [lb_av] MEDEN T ([facility]) Body mass index (BMI) [Ratio] 31.0 kg/m2 31.0 k g/m2 [facility] ([facility]) [place] body weight 130 [lb_av] 130 [lb_av] MEDEN T ([facility]) Body weight 87.091 kg 87.091 kg [facility] ([facility]) Body surface area Derived from formula 1.97 m2 1.97 m2 [facility] ([facility]) Body height 66 [in_i] 66 [in_i] MEDENT ([facility] 5'6" Body weight 185.00 [lb_av] 185.00 [lb_av] MEDEN T ([facility]) Systolic blood pressure 96 mm[Hg] 96 mm[Hg] [facility]) Diastolic blood pressure 74 mm[Hg] 74 mm[Hg] MEDENT ([facility]) Heart rate 75 /min 75 /min [facility]) Body mass index (BMI) [Ratio] 29.9 kg/m2 29.9 k g/m2 MEDENT ([facility]) Body weight 83.916 kg 83.916 kg MEDENT ([facility]) Body temperature 96.6 [degF] 96.6 [degF] MEDENT ([facility]) Body weight 185 [lb_av] 185 [lb_av] eCW1 ([facility]) Body height 67 [in_i] 67 [in_i] eCW1 ([facility]) Body mass index (BMI) [Ratio] 28.97 kg/m2 28.97 kg/m2 eCW1 ([facility]) Heart rate 74 /min 74 /min eCW1 ([facility]) Respiratory rate 18 /min 18 /min eCW1 ([facility]) Body temperature 97.1 [degF] 97.1 [degF] eCW1 ( [facility]) Systolic blood pressure 102 mm[Hg] 102 mm[Hg] e CW1 ([facility]) Diastolic blood pressure 66 mm[Hg] 66 mm[Hg] eCW1 ([facility]) Body height 67 [in_i] 67 [in_i] eCW1 ([facility]) Body weight 186.4 [lb_av] 186.4 [lb_av] eCW1 ([facility]) Diastolic blood pressure 80 mm[Hg] 80 mm[Hg] eCW1 ([facility]) Body mass index (BMI) [Ratio] 29.19 kg/m2 29.19 kg/m2 eCW1 ([facility]) Heart rate 94 /min 94 /min eCW1 ([facility]) Respiratory rate 18 /min 18 /min eCW1 ([facility]) Body temperature 96.3 [degF] 96.3 [degF] eCW1 ( [facility]) Systolic blood pressure 130 mm[Hg] 130 mm[Hg] e CW1 ([facility]) Body weight 200 [lb_av] 200 [lb_av] eCW1 ([facility]) Body height 67 [in_i] 67 [in_i] eCW1 ([facility]) Body mass index (BMI) [Ratio] 31.32 kg/m2 31.32 kg/m2 eCW1 ([facility]) Heart rate 84 /min 84 /min eCW1 ([facility]) Respiratory rate 17 /min 17 /min eCW1 ([facility]) Body temperature 97.4 [degF] 97.4 [degF] eCW1 ( [facility]) Systolic blood pressure 112 mm[Hg] 112 mm[Hg] e CW1 ([facility]) Diastolic blood pressure 74 mm[Hg] 74 mm[Hg] eCW1 ([facility]) Systolic blood pressure 104 mm[Hg] 104 mm[Hg] M EDENT ([facility]) Diastolic blood pressure 82 mm[Hg] 82 mm[Hg] [facility] ([facility]) Heart rate 75 /min 75 /min [facility] ([facility]) Oxygen saturation in Arterial blood by Pulse oximetry 95 % 95 % [facility] ([facility]) Body temperature 96.5 [degF] 96.5 [degF] [facility] ([facility]) Body height 66 [in_i] 66 [in_i] [facility] ([facility]) 5'6" Body weight 179.00 [lb_av] 179.00 [lb_av] [facility] ([facility]) Body mass index (BMI) [Ratio] 28.9 kg/m2 28.9 k g/m2 [facility] ([facility]) [place] body weight 130 [lb_av] 130 [lb_av] [facility]) Body weight 81.194 kg 81.194 kg [facility] ([facility]) Body surface area Derived from formula 1.91 m2 1.91 m2 [facility] ([facility]) Respiratory rate 16 /min 16 /min [facility] ( [facility]) Systolic blood pressure 110 mm[Hg] 110 mm[Hg] [facility] Diastolic blood pressure 70 mm[Hg] 70 mm[Hg] [facility] ([facility]) Heart rate 68 /min 68 /min [facility] ([facility]) ID Date Data Source [id number] 03/03/2020 10:35:00 AM EST [facility] Name Value Range Interpretation Code Description Data Source(s) Weight Measurement Method 8 8 [facility] Weight 3360 3360 [facility] pital Temperature Source 3 3 [facility] Temperature 96.0 96.0 [facility] spital Respiratory Effort 1 1 [facility] Respiratory Rate 18 18 [facility] Pulse Assessment Method 4 4 G [facility] Pulse Rate 84 84 [facility]ital Height 66 66 [facility] 95/80 95/80 [facility] Weight Measurement Method 8 8 [facility] Weight 3360 3360 [facility] pital Temperature Source 3 3 [facility] Temperature 96.0 96.0 [facility] spital Respiratory Effort 1 1 [facility] Respiratory Rate 18 18 [facility] Pulse Assessment Method 4 4 G [facility] Pulse Rate 84 84 [facility] pital Height 66 66 [facility] Blood Pressure 95/80 95/80 [facility] ID Date Data Source [id number] 01/20/2020 03:57:01 PM [facility] Name Value Range Interpretation Code Description Data Source(s) WEIGHT RECORDED 204.9 lb 204.9 lb [facility] Body height Measured 67.2 in 67.2 in [facility] Patient Treatment Plan of Care Planned Activity Planned Date Details Description Data Source (s) Azelastine HCl 0.15 % 04/27/2020 12:00:00 AM EST [facility] ([facility]) Azelastine HCl 0.15 % 04/27/2020 12:00:00 AM EST eCW1 ([facility]) Sodium Chloride 0.111 MEQ/ML Nasal [place] 03/10/2020 12:00:00 AM EST [facility] ([facility]) Fluticasone Propionate 50 MCG/ACT 02/22/2020 12:00:00 AM EST eC ([facility]) Fluticasone Propionate 50 MCG/ACT 02/22/2020 12:00:00 AM EST [facility] ([facility]) Acetaminophen 325 MG Oral Tablet 01/11/2020 07:53:09 AM [facility] Bisacodyl 10 MG Rectal Suppository 01/11/2020 07:53:09 AM [facility] alginic acid 200 MG / Calcium Carbonate 80 MG / magnesium trisilicate 20 MG / Sodium Bicarbonate 70 MG Oral Tablet 01/11/2020 07:53:09 AM [facility] Diphenhydramine Hydrochloride 25 MG Oral Capsule 01/11/2020 07:53:0 9 AM [facility] Ibuprofen 200 MG Oral Tablet 01/11/2020 07:53:09 AM [facility] Magnesium Hydroxide 80 MG/ML Oral Suspension 01/11/2020 07:53:09 AM [facility] Ondansetron 4 MG Oral Tablet 01/11/2020 07:53:09 AM [facility] drospirenone 3 MG / Ethinyl Estradiol 0.02 MG Oral Tab let 01/04/2020 12:00:00 AM [facility] lamotrigine 200 MG Oral Tablet 12/27/2019 12:00:00 AM [facility] 24 HR venlafaxine 37.5 MG Extended Release Oral Capsul e 12/27/2019 12:00:00 AM [facility] Hydroxyzine Hydrochloride 25 MG Oral Tablet 12/27/2019 12:00:00 AM [facility] aripiprazole 20 MG Oral Tablet 12/27/2019 12:00:00 AM [facility] buspirone hydrochloride 10 MG Oral Tablet 12/23/2019 12:00:00 AM [facility] 24 HR venlafaxine 75 MG Extended Release Oral Capsule 12/20/2019 12:00:00 AM [facility]
--- OUTSIDE RECORDS SUMMARY | 2020-12-23 19:36 | CCD ---
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 Name Role Phone Michelle Pretty MD Unavailable [...] Unavailable Unavailable Harry Mathews MD Unavailable Unavailable [place], F Steve PA Unavailable Unavailable Sonia, F Steve PA Unavailable Unavailable Sonia, F Steve PA Unavailable Unavailable [place], F Steve PA Unavailable Unavailable [place], F Steve PA Unavailable Unavailable Sonia, F Steve PA Unavailable Unavailable [place], F Steve PA Unavailable Unavailable Sonia, F Steve PA Unavailable Unavailable Sonia, F Steve PA Unavailable Unavailable [place], F Steve PA Unavailable Unavailable Hadian, Mor [...] Mor Unavailable Unavailable Hadian, Mor Unavailable Unavailable Iva, Nadine PA Unavailable Unavailable Sergio, Nadine PA [...] Unavailable Unavailable Kristy SANDOVAL MD Unavailable Unavailable Kirsty SANDOVAL MD Unavailable Unavailable Kristy SANDOVAL MD [...] is protected by Article 27-F of the [facility] Public Health law. If you continue you may have access to information: Regarding HIV / AIDS; Provided by facilities licensed or operated by the [facility] Office of Mental Health; or Provided by the [facility] Office for People With Developmental Disabilities. If such information is present, then the following [facility] mandated warning applies: This information has [...] Drug allergy No Known Allergies [facility] Propensity to adverse reactions NO KNOWN ALLERGIES NO KNOWN ALLERGIES [facility] Propensity to adverse reactions NKDA NKDA MEDENT [...] Family Practice 11/28 12:00:00 PM EDT MEDENT ([facility]) Outpatient Attender: ZOË GAO 11/28 11:49:00 AM EDT - 11/28/2020 11:49:[address] [facility] Outpatient Attender: Michelle Jarvis/Stacy/Lonnie/Ariel ndl 11/25/2020 09:30:00 AM EDT MEDENT ([facility] ) Outpatient Attender: ARIS PATRICIA [facility] 10/09 10:45:00 AM EDT MED[facility] ([facility] Outpatient Attender: Meli GAO [facility] 10/24/2020 10:45:00 AM EDT MEDENT ([facility]) Outpatient Attender: CATHLEEN Jarvis/Stacy/Ang el/Reindl 10/06/2020 11:40:00 AM EDT MEDENT ([facility] ) Outpatient Attender: ZOË GAO 09/06 09:07:00 AM EDT - 09/06/2020 09:07:[address] 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 Outpatient Attender: ZOË GAO Family Practice 08/01 12:00:00 PM EDT MEDENT ([facility] Outpatient [address] [facility] [address] 07/26/2020 12:00:00 AM EDT eCW1 ([facility]) Outpatient Attender: Meli GAO Main office - [facility] 07/22/2020 08:00:00 AM EDT MEDENT ([facility]) Outpatient Attender: ARIS PATRICIA [facility] 07/09 10:45:00 AM EDT MEDENT ([facility] Outpatient Attender: CATHLEEN Jarvis/Stacy/Abe reeves/Reintriny 06/16/2020 08:30:00 AM EDT MEDENT ([facility]) [place] [address] [facility] [address] 06/14/2020 12:00:00 AM EDT eCW1 ([facility]) Outpatient Attender: Michelle Jarvis/Stacy/Lonnie/Ariel ndl 06/13/2020 11:00:00 AM EDT MEDENT ([facility]) Outpatient Attender: Gregorio Mathews MD Main Office 05/26/2020 11:00:00 AM EDT MEDENT ([facility]) Outpatient Attender: ZOË GAO 05/06 12:29:00 PM EST - 05/06/2020 12:29:[address] [facility] Outpatient Attender: ZOË GAO Family Practice 05/06 11:20:00 AM EST [facility] Office Visit Attender: Meli GAO Main [facility] 05/03/2020 07:45:00 AM EST MEDENT ([facility], ) [place] [address] [facility] [address] 04/27/2020 12:00:00 AM EST eCW1 ([facility]) Outpatient Attender: ARIS PATRICIA [facility] 04/11 09:45:00 AM EST MEDENT ([facility] [place] [address] [facility] [place] [address] 04/11/2020 12:00:00 AM EST eCW1 ([facility]) [place] [address] [facility] [place] [address] 04/08/2020 12:00:00 AM EST eCW1 ([facility]) [place] [address] [facility] [place] [address] 04/01/2020 12:00:00 AM EST [facility]CW1 ([facility]) Unknown [address] [facility] [place] [address] 03/30/2020 12:00:00 AM EST eCW1 ([facility]) Outpatient [address] [facility] [place] [address] 2020 12:00:00 AM EST eCW1 ([facility]) Outpatient Attender: ZOË GAO 03/25 01:23:00 PM EST - 03/25/2020 01:23:[address] [facility] Outpatient Attender: ZOË GAO Family Practice 03/25 12:20:00 PM EST [facility] [place] [address] [facility] [place] [address] 03/25/2020 12:00:00 AM EST eCW1 ([facility]) Outpatient [address] [facility] [place] [address] 03/10/2020 12:00:00 AM EST eCW1 ([facility]) Outpatient Attender: Mor Braun ED-LABPNP 11:34:00 AM EST - 03/09/2020 11:35:00 AM EST REQUIRED [facility] REQUIRED [facility] Patient discharged. Outpatient Attender: Mor Braun ED-LABPNP 0 10:53:00 AM EST - 03/03/2020 10:54:00 AM EST RETURN TO [facility] RETURN TO [facility] Patient discharged. Emergency Attender: Steve GAO ED-ED 09:05:00 AM EST - 03/03/2020 10:00:00 AM EST ITCHING [facility] ITCHING Patient discharged. [place] [address] [facility] [address] 02/29/2020 12:00:00 AM EST eCW1 ([facility]) [place] [address] [facility] [address] 02/22/2020 12:00:00 AM EST eCW1 ([facility]) Outpatient [facility] 02/11/2020 03:27:00 PM EST [facility] Outpatient Attender: Mor Braun ED-LABPNP 0 11:54:00 AM EST - 02/11/2020 11:55:00 AM EST NEED TO RETURN TO [facility] NEED TO RETURN TO [facility] Patient discharged. Unknown [address] [facility] [address] 02/10/2020 12:00:00 AM EST eCW1 ([facility]) Outpatient Attender: ZOË GAO 02/07 11:28:00 AM EST - 02/08/2020 11:28:[address] [facility] Outpatient Attender: ZOË GAO Family Practice 02/07 10:20:00 AM EST MEDENT ([facility] Office Visit Attender: Meli GAO [facility] 02/01/2020 07:45:00 AM EST MEDENT ([facility] ) Outpatient Attender: ARIS PATRICIA [facility] 01/09 10:00:00 AM EST MEDENT ([facility] Inpatient Attender: SHEILA BURDENOFFAdm itter: SHEILA BURDENOFFReferrer: Meli GAO [id number] 01/11/2020 12:00:00 AM EST - 01/15/2020 03:10:00 PM EST Localization-related (focal) (partial) symptomatic epilepsy and epileptic syndromes with simple partial seizures, not intractable, without status epilepticus [facility] Localization-related (focal) (partial) s ymptomatic epilepsy and epileptic syndromes with simple partial seizures, not intractable, without status epilepticus Patient discharged. Outpatient Attender: Nadine GAO ED-LABPNP 01/10/2020 02:14:00 P M EST PREOP [facility] PREOP Outpatient Attender: Nadine GAO ED-LABPNP 01/06/2020 08:0 0:00 AM EDT PRE OP [facility] PRE OP Outpatient Attender: ZOË GAO 12/28 10:23:00 AM EDT - 12/29/2019 10:23:[address] [facility] Outpatient Attender: Nadine GAO CPSCAORT-LABPNP 12/29/2019 0 8:00:00 AM EDT COVID SCREENING [facility] COVID SCREENING Outpatient Attender: Meli GAO [facility] 10/30/2019 08:30:00 AM EDT MEDENT ([facility]) Immunizations Vaccine Date Status Description Data Source(s) COVID-19 VACCINE Pfizer 04/05/2020 12:00:00 AM EST completed [facility] Vaccine Series Complete: YESThis Data wa s Submitted to [facility] Via [employer]. COVID-19 VACCINE Pfizer 03/15/2020 12:00:00 AM EST completed [facility] Vaccine Series Complete: NOThis Data was Submitted to [facility] Via [employer]. INFLUENZA VIRUS VACCINE QUADRIVALENT (6 MOS AN D UP) 01/06/2020 12:00:00 AM EDT completed [facility] Medications Medication Brand Name Start Date Product Form Dose Route Admi nistrative Instructions Pharmacy Instructions Status Indications Reaction Description Data Source(s) buspirone hydrochloride 10 MG Oral Tablet Buspirone HCL 09/20/2020 12:00:00 AM EDT ORAL active MEDENT ([facility]) buspirone hydrochloride 15 MG Oral Tablet Buspirone HCL 09/06/2020 12:00:00 AM EDT ORAL completed MEDENT ([facility]) Clotrimazole 10 MG/ML Topical Cream Clotrimazole 07/19/2020 12:00:00 AM EDT active [facility] ([facility] Ursodiol 300 MG Oral Capsule Ursodiol 06/23/2020 12:00:00 AM EDT ORAL active MEDENT ([facility], ) Ciprofloxacin 500 MG Oral Tablet [Cipro] Cipro 06/23/2020 12:00:00 AM EDT completed MEDENT ([facility], ) aripiprazole 10 MG Oral Tablet Aripiprazole 06/20/2020 12:00:00 AM EDT ORAL active MEDENT ([facility]) Levetiracetam 500 MG Oral Tablet Levetiracetam 06/09/2020 12:00:00 AM EDT ORAL active MEDENT ([facility]) Levetiracetam 750 MG Oral Tablet Levetiracetam 05/11/2020 12:00:00 AM EST ORAL completed MEDENT ([facility]) Azelastine HCl 0.15 % Azelastine HCl 0.15 % 04/27/2020 12:00:00 AM EST 2.0 {sprays_in_each_nostril} active Azelast ine HCl 0.15 % eCW1 ([facility]) Azelastine HCl 0.15 % Azelastine HCl 0.15 % 04/27/2020 12:00:00 AM EST 2.0 {sprays_in_each_nostril} active Azelast ine HCl 0.15 % eCW1 ([facility]) ammonium lactate 120 MG/ML Topical Cream Ammonium Lactate 04/26/2020 12:00:00 AM EST active [facility] ([facility] Levetiracetam 500 MG Oral Tablet Levetiracetam 04/12/2020 12:00:00 AM EST ORAL completed MEDENT ([facility]) Hydroxyzine Hydrochloride 50 MG Oral Tablet Hydroxyzine HCL 03/25/2020 12:00:00 AM EST ORAL active MEDENT ([facility]) Sodium Chloride 0.111 MEQ/ML Nasal [place] Saline Nasal [place] 0.65 % Saline Nasal [place] 0.65 % 03/10/2020 12:00:00 AM EST activ e Saline Nasal [place] 0.65 % eCW1 ([facility]) Sodium Chloride 0.111 MEQ/ML Nasal [place] Saline Nasal [place] 0.65 % Saline Nasal [place] 0.65 % 03/10/2020 12:00:00 AM EST activ e Saline Nasal [place] 0.65 % eCW1 ([facility]) Sodium Chloride 0.111 MEQ/ML Nasal [place] Saline Nasal [place] 0.65 % Saline Nasal [place] 0.65 % 03/10/2020 12:00:00 AM EST activ e Saline Nasal [place] 0.65 % eCW1 ([facility]) Sodium Chloride 0.111 MEQ/ML Nasal [place] Saline Nasal [place] 0.65 % Saline Nasal [place] 0.65 % 03/10/2020 12:00:00 AM EST activ e Saline Nasal [place] 0.65 % eCW1 ([facility]) Sodium Chloride 0.111 MEQ/ML Nasal [place] Saline Nasal [place] 0.65 % Saline Nasal [place] 0.65 % 03/10/2020 12:00:00 AM EST activ e Saline Nasal [place] 0.65 % eCW1 ([facility]) Sodium Chloride 0.111 MEQ/ML Nasal [place] Saline Nasal [place] 0.65 % Saline Nasal [place] 0.65 % 03/10/2020 12:00:00 AM EST activ e Saline Nasal [place] 0.65 % eCW1 ([facility]) Sodium Chloride 0.111 MEQ/ML Nasal [place] Saline Nasal [place] 0.65 % Saline Nasal [place] 0.65 % 03/10/2020 12:00:00 AM EST activ e Saline Nasal [place] 0.65 % eCW1 ([facility]) Sodium Chloride 0.111 MEQ/ML Nasal [place] Saline Nasal [place] 0.65 % Saline Nasal [place] 0.65 % 03/10/2020 12:00:00 AM EST activ e Saline Nasal [place] 0.65 % eCW1 ([facility]) Sodium Chloride 0.111 MEQ/ML Nasal [place] Saline Nasal [place] 0.65 % Saline Nasal [place] 0.65 % 03/10/2020 12:00:00 AM EST activ e Saline Nasal [place] 0.65 % eCW1 ([facility]) Sodium Chloride 0.111 MEQ/ML Nasal [place] Saline Nasal [place] 0.65 % Saline Nasal [place] 0.65 % 03/10/2020 12:00:00 AM EST activ e Saline Nasal [place] 0.65 % eCW1 ([facility]) Sodium Chloride 0.111 MEQ/ML Nasal [place] Saline Nasal [place] 0.65 % Saline Nasal [place] 0.65 % 03/10/2020 12:00:00 AM EST activ e Saline Nasal [place] 0.65 % eCW1 ([facility]) Sodium Chloride 0.111 MEQ/ML Nasal [place] Saline Nasal [place] 0.65 % Saline Nasal [place] 0.65 % 03/10/2020 12:00:00 AM EST activ e Saline Nasal [place] 0.65 % eCW1 ([facility]) Sodium Chloride 0.111 MEQ/ML Nasal [place] Saline Nasal [place] 0.65 % Saline Nasal [place] 0.65 % 03/10/2020 12:00:00 AM EST activ e Saline Nasal [place] 0.65 % eCW1 ([facility]) Sodium Chloride 0.111 MEQ/ML Nasal [place] Saline Nasal [place] 0.65 % Saline Nasal [place] 0.65 % 03/10/2020 12:00:00 AM EST activ e Saline Nasal [place] 0.65 % eCW1 ([facility]) Sodium Chloride 0.111 MEQ/ML Nasal [place] Saline Nasal [place] 0.65 % Saline Nasal [place] 0.65 % 03/10/2020 12:00:00 AM EST activ e Saline Nasal [place] 0.65 % eCW1 ([facility]) Sodium Chloride 0.111 MEQ/ML Nasal [place] Saline Nasal [place] 0.65 % Saline Nasal [place] 0.65 % 03/10/2020 12:00:00 AM EST activ e Saline Nasal [place] 0.65 % eCW1 ([facility]) Sodium Chloride 0.111 MEQ/ML Nasal [place] Saline Nasal [place] 0.65 % Saline Nasal [place] 0.65 % 03/10/2020 12:00:00 AM EST activ e Saline Nasal [place] 0.65 % eCW1 ([facility]) Sodium Chloride 0.111 MEQ/ML Nasal [place] Saline Nasal [place] 0.65 % Saline Nasal [place] 0.65 % 03/10/2020 12:00:00 AM EST activ e Saline Nasal [place] 0.65 % eCW1 ([facility]) Sodium Chloride 0.111 MEQ/ML Nasal [place] Saline Nasal [place] 0.65 % Saline Nasal [place] 0.65 % 03/10/2020 12:00:00 AM EST activ e Saline Nasal [place] 0.65 % eCW1 ([facility]) Sodium Chloride 0.111 MEQ/ML Nasal [place] Saline Nasal [place] 0.65 % Saline Nasal [place] 0.65 % 03/10/2020 12:00:00 AM EST activ e Saline Nasal [place] 0.65 % eCW1 ([facility]) Sodium Chloride 0.111 MEQ/ML Nasal [place] Saline Nasal [place] 0.65 % Saline Nasal [place] 0.65 % 03/10/2020 12:00:00 AM EST activ e Saline Nasal [place] 0.65 % eCW1 ([facility]) Sodium Chloride 0.111 MEQ/ML Nasal [place] Saline Nasal [place] 0.65 % Saline Nasal [place] 0.65 % 03/10/2020 12:00:00 AM EST activ e Saline Nasal [place] 0.65 % eCW1 ([facility]) 20 mg 03/03/2020 12:00:00 AM EST tablet 8 TAKE TWO TABLETS BY MOUTH ONCE DAILY TAKE TWO TABLETS BY MOUTH ONCE DAILY SOLD: 03/03/2020 [facility] Fluticasone Propionate 50 MCG/ACT Fluticasone Propionate 50 MCG/ACT 02/22/2020 12:00:00 AM EST 1.0 {spray_in_each_nostril} acti ve Fluticasone Propionate 50 MCG/ACT eCW1 ([facility]) Fluticasone Propionate 50 MCG/ACT Fluticasone Propionate 50 MCG/ACT 02/22/2020 12:00:00 AM EST 1.0 {spray_in_each_nostril} acti ve Fluticasone Propionate 50 MCG/ACT eCW1 ([facility]) Divalproex Sodium 125 MG Delayed Release Oral Capsule [Depakote] Depakote Patricioles 02/08/2020 12:00:00 AM EST completed MEDENT ([facility]) Divalproex Sodium 125 MG Delayed Release Oral Capsule Divalp roex Sodium 02/08/2020 12:00:00 AM EST ORAL active MEDENT ([facility]) 24 HR Divalproex Sodium 500 MG Extended Release Oral T ablet [Depakote] Depakote ER 02/01/2020 12:00:00 AM EST ORAL completed MEDENT ([facility]) Hydroxyzine Hydrochloride 50 MG Oral Tablet hydrOXYzin e (ATARAX) tablet 25 mg hydrOXYzine (ATARAX) tablet 25 mg 01/14/2020 06:15:00 PM EST 25 mg Oral completed 25 mg, Oral, Once, Sat01/14/20 a t 1815, For 1 dose [facility] Medication administered onsite lamotrigine 100 MG Oral Tablet lamoTRIgine (LaMICtal) tablet 400 mg lamoTRIgine (LaMICtal) tablet 400 mg 01/14/2020 11:30:00 AM EST 400 mg Oral active 400 mg, Oral, 2 Times Daily, First dose on Sat01/14/20 at 1130, For 30 days [facility] Medication administered onsite lamotrigine 100 MG Oral Tablet lamoTRIgine (LaMICtal) tablet 200 mg lamoTRIgine (LaMICtal) tablet 200 mg 01/13/2020 09:00:00 PM EST 200 mg Oral active 200 mg, Oral, Once, Sat01/13/20 at 2100, For 1 dose [facility] Medication administered onsite diazePAM (VALIUM) injection 5 mg [id number] 01/13/2020 12:54:25 PM EST 5 mg Intravenous aborted 5 mg, Intrave nous, Once PRN, Give for 1st GTC, Starting Sat01/13/20 at 1254, For 4 days
Give indicated order dose for 1st GTC
[facility] Medication administered onsite lamotrigine 100 MG Oral Tablet lamoTRIgine (LaMICtal) tablet 200 mg lamoTRIgine (LaMICtal) tablet 200 mg 01/12/2020 09:00:00 PM EST 200 mg Oral active 200 mg, Oral, 2 Times Daily, First dose (after last reorder) on Sat01/12/20 at 2100, For 1 dose [facility] Medication administered onsite lamotrigine 100 MG Oral Tablet lamoTRIgine (LaMICtal) tablet 200 mg lamoTRIgine (LaMICtal) tablet 200 mg 01/12/2020 01:00:00 PM EST 200 mg Oral active 200 mg, Oral, Once, Sat01/12/20 at 1300, For [address] [facility] Medication administered onsite lamotrigine 100 MG Oral Tablet lamoTRIgine (LaMICtal) tablet 200 mg lamoTRIgine (LaMICtal) tablet 200 mg 01/12/2020 10:00:00 AM EST 200 mg Oral active 200 mg, Oral, 2 Times Daily, First dose (after last modification) on Sat01/12/20 at 1000, For 1 dose [facility] Medication administered onsite drospirenone 3 MG / [...] Own medication being used for this order
[facility] Medication administered onsite cetirizine hydrochloride 10 MG Oral Tablet cetirizine (ZYRTEC) tablet 10 mg cetirizine (ZYRTEC) tablet 10 mg 01/12/2020 09:00:00 AM EST 10 mg Oral active 10 mg, Oral, Daily Standard, First dose on Sat01/12/20 at 0900, For 30 days [facility] Medication administered onsite Cholecalciferol 1000 UNT Oral Tablet vit oconnell D3 (CHOLECALCIFEROL) tablet 2,000 Units vitamin D3 (CHOLECALCIFEROL) tablet 2,000 Units 2019 09:00:00 AM EST 2000 U Oral active 2,000 Un its, Oral, Daily Standard, First dose on Sat01/12/20 at 0900, For 20 days
25 mcg vitamin D3 = 1,000 international units vitamin D3.
[facility] Medication administered onsite 24 HR venlafaxine 37.5 [...] XR 75 mg to get 112.5 mg
[facility] Medication administered onsite 24 HR venlafaxine 75 [...] XR 37.5 mg to get 112.5 mg
[facility] Medication administered onsite lamotrigine 100 MG Oral Tablet lamoTRIgine (LaMICtal) tablet 400 mg lamoTRIgine (LaMICtal) tablet 400 mg 01/11/2020 09:00:00 PM EST 400 mg Oral active 400 mg, Oral, 2 Times Daily, First dose on Sat01/11/20 at 2100, For 1 dose [facility] Medication administered onsite buspirone hydrochloride 10 MG Oral Tablet busPIRone (B USPAR) tablet 10 mg busPIRone (BUSPAR) tablet 10 mg 01/11/2020 09:00:00 PM EST 10 mg O ral active 10 mg, Oral, 2 Times Daily, First dose on Sat01/11/20 at 2100, For 30 days [facility] Medication administered onsite aripiprazole 10 MG Oral [...] on Sat01/11/20 at 1600, For 30 days [facility] Medication administered onsite hypromellose 0.003 MG/MG Ophthalmic Gel hypromellose (GENTEAL) 0.3 % ophthalmic gel 1 drop hypromellose (GENTEAL) 0.3 % ophthalmic gel 1 drop 04/2019 10:45:00 AM EST 1 [drp] Both Eyes active 1 drop, Both Eyes, 2 Times Daily, First dose (after last modification) on Sat01/11/20 at 1045, For 30 days [facility] Medication administered onsite sodium chloride (preservative free) [...] 0753, For 30 days [Order 6 End] [facility] Medication administered onsite senna tablet 2 tablet [...] on the third day.
[Order 2 End] [facility] Medication administered onsite Acetaminophen 325 MG Oral [...] mg from all sources in 24 hours.
[facility] Medication administered onsite Ondansetron 4 MG Oral Tablet ondansetron (ZOFRAN) tabl et 4 mg ondansetron (ZOFRAN) tablet 4 mg 01/11/2020 07:53:09 AM EST 4 mg Oral active 4 mg, Oral, Every 8 hours PRN, Nausea, Starting Sat01/11/20 at 0753, For 30 days [facility] Medication administered onsite Magnesium Hydroxide 80 MG/ML Oral Suspen mary magnesium hydroxide (MILK OF MAGNESIA) 400 MG/5ML suspension 45 mL magnesium hydroxide (MILK OF MAGNESIA) 4 00 MG/5ML suspension 45 mL 01/11/2020 07:53:09 AM EST 45 mL Oral active 45 mL, Oral, Nightly PRN, Constipation, Starting Sat01/11/20 at 0753, For 30 days
If serum creatinine > 2 notify provider before administering.
[facility] Medication administered onsite alginic acid 200 MG / Calcium Carbonate 80 MG / magnesium trisilicate 20 MG / Sodium Bicarbonate 70 MG Oral Tablet calcium carbonate (TUMS) chewable tablet 500 mg calcium carbonate (TUMS) chewable tablet 500 mg 2019 07:53:09 AM EST 500 mg Oral active 500 mg, Oral, Daily PRN, Indigestion, Heartburn, Starting Sat01/11/20 at 0753, For 30 days [facility] Medication administered onsite Bisacodyl 10 MG Rectal Suppository bisacodyl (DULCOLAX ) suppository 10 mg bisacodyl (DULCOLAX) suppository 10 mg 01/11/2020 07:53:09 AM EST 10 mg Rectal active 10 mg, Rectal, Every 72 hours PRN, Constipation, Starting Sat01/11/20 at 0753, For 30 days
Hold if patient has had a BM in the past 2 days.
[facility] Medication administered onsite Ibuprofen 200 MG Oral Tablet ibuprofen (MOTRIN) tablet 200 mg ibuprofen (MOTRIN) tablet 200 mg 01/11/2020 07:53:09 AM EST 200 mg Oral acti ve 200 mg, Oral, Every 6 hours PRN, Mild Pain (Pain Scale Score 1-3), Fever, Starting Sat01/11/20 at 0753, For 30 days
Take with food.
[facility] Medication administered onsite Diphenhydramine Hydrochloride 25 MG Oral Capsule diphenhydrAMINE (BENADRYL) capsule 25 mg diphenhydrAMINE (BENADRYL) capsule 25 mg 01/11/2020 07 :53:09 AM EST 25 mg Oral active 25 mg, O ral, Every 6 hours PRN, Itching, Starting Sat01/11/20 at 0753, For 30 days [facility] Medication administered onsite drospirenone 3 MG / Ethinyl Estradiol 0. 02 MG Oral Tablet Drospirenone-Ethinyl Estradiol 3-0.02 MG Oral Tablet (GIANVI) Drospirenone-Ethinyl Estradiol 3-0.02 MG Oral Tablet (GIANVI) 01/04/2020 12:00:00 AM EDT 1 {tbl} Oral active Take 1 tablet [facility] mouth daily [facility] 20 MG Oral Tablet ARIPiprazole 20 MG Oral Tablet (ABILIFY) ARIPiprazole 20 MG Oral Tablet (ABILIFY) 12/27/2019 12:00:00 AM EDT 10 mg Oral active Take 10 mg by mouth Two Times Daily [facility] 24 HR venlafaxine 37.5 MG Extended Relea se Oral Capsule Venlafaxine HCl ER 37.5 MG Oral Capsule Extended Release 24 Hour (EFFEXOR-XR) Venlafaxine HCl ER 37.5 MG Oral Capsule Extended Release 24 Hour (EFFEXOR-XR) 12/27/2019 12:00:00 AM EDT 37.5 mg Oral active Take 37.5 mg by mouth daily Take with 75 mg capsule. OGL=054.5 mg. [facility] lamotrigine 200 MG Oral Tablet lamoTRIgine 200 MG Oral Tablet (LaMICtal) lamoTRIgine 200 MG Oral Tablet (LaMICtal) 12/27/2019 12:00:00 AM EDT 400 mg Oral active Take 400 mg by mouth Two Times Daily [facility] Hydroxyzine Hydrochloride 25 MG Oral Tab let hydrOXYzine HCl 25 MG Oral Tablet (ATARAX) hydrOXYzine HCl 25 MG Oral Tablet (ATARAX) 12/27/2019 12:00: 00 AM EDT 25 mg Oral active Take 25 mg by mo uth Three times daily [facility] buspirone hydrochloride 10 MG Oral Table t busPIRone HCl 10 MG Oral Tablet (BUSPAR) busPIRone HCl 10 MG Oral Tablet (BUSPAR) 12/23/2019 12:00:00 AM EDT 10 mg Oral active Take 10 mg by mouth Two Times Daily [facility] buspirone hydrochloride 10 MG Oral Tablet Buspirone HCL 12/23/2019 12:00:00 AM EDT ORAL active MED[facility] ([facility]) 24 HR venlafaxine 75 MG Extended Release Oral Capsule Venlafaxine HCl ER 75 MG Oral Capsule Extended Release 24 Hour (EFFEXOR-XR) Venlafaxine HCl ER 75 MG Oral Capsule Extended Release 24 Hour (EFFEXOR-XR) 12/20/2019 12:00:00 AM EDT 75 mg Oral active Take 75 mg by mouth daily Take with 37.5 mg capsule. RSO=934.5 mg. [facility] aripiprazole 20 MG Oral Tablet Aripiprazole 10/26/2019 12:00:00 AM EDT ORAL active MEDENT ([facility]) Insurance Providers Payer name Policy type / Coverage type Policy ID Covered constitution party ID Covered constitution party's relationship to delgado Policy Delgado Plan Information Cigna/MVP Medigap Part B [id number] Family Dependent [id number] [place] Medigap Part B [id number] Family Dependent V [id number] BCBS JAYDIANDRA SUDHA PPO 302/307 [id number] FA2 [id number] Medicare [place] Primary [id number] Self 1 [id number] MEDICARE [id number] SP [id number] MEDICARE A [id number] Self [id number] Medicaid ID Medigap Part B [id number] [id number]. 81628.0 Self [id number] MEDICAID [id number] SP [id number] MEDICARE [id number] SP [id number] X71 MEDICAID M [id number] Self [id number] MEDICAID [id number] [facility] [id number] Self [id number] Medicare Part B Medicare Primary [id number] Self [id number] Medicaid Medicaid [id number] Self [id number] Medicare Medicare Primary [id number] Self [id number] ANSI-Medicaid [id number] ANS-Medicare Part B [id number] ANSI-Commercial [id number] ANSI-Medicaid [id number] ANSI-Commercial [id number] [facility]-Medicare Part B [id number] Medicaid [facility] Part B [id number] 40.0 Self [id number] Medicare Part B Medicare Primary [id number] [id number] Self [id number] Medicaid Medicaid [id number] [id number] S elf [id number] Medicare Medicare Primary [id number] 2.16.840.1.008251.3.227. [id number] Self [id number] ANSI-Medicaid [id number] ANSI-Medicare Part B [id number] ANSI-Commercial [id number] ANSI-Medicare Part B [id number] ANSI-Commercial [id number] ANSI-Medicaid [id number] ANSI-Medicare Part B [id number] ANSI-Commercial [id number] ANSI-Medicaid [id number] Medicaid [facility] Part B [id number] 40.0 Self [id number] Medicare Part B Medicare Primary [id number] [id number] Self [id number] *NOTFORTODAYSVISIT* SP *NOTFORTODAYSVISIT* Medicaid Medicaid [id number] [id number] S elf [id number] Medicare Medicare Primary [id number] 2.16.840.1.376112.3.227. 99.936.46077.0 Self [id number] ANSI-Medicaid [id number] ANSI-Medicare Part B [id number] ANSI-Commercial [id number] ANSI-Commercial [id number]-[id number]-[id number] ANSI-Medicaid [id number] ANSI-Medicare Part B [id number] ANSI-Commercial [id number] ANSI-Medicaid [id number] ANSI-Medicare Part B [id number] ANSI-Medicaid [id number] ANSI-Medicare Part B [id number] ANSI-Commercial [id number] Medicaid [facility] Part B [id number] 40.0 Self [id number] Medicare Part B Medicare Primary [id number] 2.16.840.1.865369.3.227.99.1037.31874.0 Self [id number] MEDICARE [id number] ANSI-Commercial [id number] ANSI-Medicare Part B [id number] ANSI-Medicaid [id number] ANSI-Commercial [id number] ANSI-Medicare Part B [id number] ANSI-Medicaid [id number] ANSI-Commercial [id number] ANSI-Medicaid [id number] ANSI-Medicare Part B [id number] ANSI-Medicaid [id number] ANSI-Medicare Part B [id number] ANSI-Commercial [id number] ANSI-Medicare Part B [id number] ANSI-Commercial [id number]-[id number]-mqcj-[id number] ANSI-Medicaid [id number] Medicaid Medigap Part B [id number] 40.0 Self [id number] Medicare Part B Medicare Primary [id number] 2..1.321107.3.227.99.1037.40848.0 Self [id number] ANSI-Medicaid [id number] ANSI-Commercial [id number] ANSI-Medicare Part B [id number] ANSI-Commercial [id number] ANSI-Medicaid [id number] ANSI-Medicare Part B [id number] Medicaid Medigap Part B [id number] 2..[id number] 40.0 Self [id number] Medicare Part B Medicare Primary [id number] 2..[id number] Self [id number] Medicaid Medigap Part B [id number] 40.0 Self [id number] Medicare Part B Medicare Primary [id number] 2.16.840.1.485620.3.227.99.1037.27662.0 Self [id number] Medicaid Medigap Part B [id number] 40.0 Self [id number] Medicare Part B Medicare Primary [id number] Self [id number] Medicaid Medigap Part B [id number] 40.0 Self [id number] Medicare Part B Medicare Primary [id number] 2.840.1.871929.3.227.99.1037.60424.0 Self [id number] Medicaid Medigap Part B [id number] 40.0 Self [id number] Medicare Part B Medicare Primary [id number] 2.840.1.070881.3.227.99.1037.28011.0 Self [id number] Medicaid Medigap Part B [id number] 40.0 Self [id number] Medicare Part B Medicare Primary [id number].1037.51271.0 Self [id number] Medicaid Medigap Part B [id number] [id number] 40.0 Self [id number] Medicare Part B Medicare Primary [id number].1037.52629.0 Self [id number] Medicaid Medigap Part B [id number] 40.0 Self [id number] Medicare Part B Medicare Primary [id number] Self [id number] MEDICAID [id number] SP [id number] Medicare Part B Medicare Primary [id number] Self Medicaid Medicaid [id number] Self 1 1 Medicare Medicare Primary [id number] Self MEDICARE P [id number] S [id number] MEDICAID -O/P [id number] BLUE [place]OSS -O/P [id number] 19 [id number] MEDICARE -O/P [id number] 18 [id number] MEDICAID -CLINIC [id number] BL[place]OSS - CLINIC [id number] 19 [id number] MEDICARE - CLINIC [id number] 18 [id number] [facility] MEDICAID [id number] SP [id number] M [id number] MEDICARE [id number] SP [id number] MEDICAID CO [id number] 18 [id number] MEDICARE CO [id number] 18 [id number] EMEDNY [id number] SP [id number] MEDICARE C [id number] S [id number] MEDICAID M [id number] S [id number] MEDICAID [id number] MEDICARE [id number] S [id number] MEDICAID [id number] SP [id number] Problems, Conditions, and Diagnoses Code Display Name Description Problem Type Effective Dates Data Source(s) F419 Anxiety disorder, unspecified Anxiety disorder, unspec ified Diagnosis 08/01/2020 12:22:[address] [facility] F79 Unspecified intellectual disabilities Unspecifie d intellectual disabilities Diagnosis 08/01/2020 12:22:[address] [facility] F840 Autistic disorder Autistic disorder Diagnosis 08/01/2020 12:22:[address] 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, not intractable, without status epilepticus Localization-related (focal) (partial) s ymptomatic epilepsy and epileptic syndromes with simple partial seizures, not intractable, without status epilepticus Diagnosis 01/15/2020 07:48:28 PM [facility] Localization-related epilepsy Localization-related epi lepsy Diagnosis 01/11/2020 07:35:00 AM Health system r51 r51 Diagnosis 01/11/2020 07:35:00 AM [facility] r42 r42 Diagnosis 01/11/2020 07:35:00 AM [facility] g40.89 g40.89 Diagnosis 01/11/2020 07:35:00 AM [facility] g40.009 g40.009 Diagnosis 01/11/2020 07:35:00 AM [facility] Z20.828 Contact with and (suspected) exposure to other viral communicable diseases CONTACT W AND EXPOSURE TO OTH VIRAL COMMUNICABLE DISEASES Di agnosis 01/06/2020 08:00:00 AM EDT [facility] M72.2 Plantar fascial fibromatosis Plantar fascial fibromato sis Problem 10/25/2020 12:00:00 AM EDT MED[facility] ([facility] [id number] Liver enzymes abnormal Liver enzymes abnormal Problem 05/26/2020 12:00:00 AM EDT MED[facility] ([facility]) J30.9 Allergic rhinitis Allergic sinusitis Problem 04/27/2020 12:00:00 AM EST eCW1 ([facility]) Surgeries/Procedures Procedure Description Date Indications Data Source(s) OFFICE OUTPATIENT VISIT 25 MINUTES 11/28/2020 12:00:00 AM EDT MED[facility] ([facility]) OFFICE OUTPATIENT VISIT 25 MINUTES 11/25/2020 12:00:00 AM EDT MEDENT ([facility], ) Spirometry 11/10/2020 12:00:00 AM EDT [facility]YLER ([facility], ) Plethysmography Determination Lung Volumes & Per Airway Resi st 11/10/2020 12:00:00 AM EDT MED[facility] ([facility]) OFFICE OUTPATIENT VISIT 10 MINUTES 10/25/2020 12:00:00 AM EDT [facility] ([facility] OFFICE OUTPATIENT VISIT 25 MINUTES 10/24/2020 12:00:00 AM EDT MED[facility] ([facility]) OFFICE OUTPATIENT VISIT 25 MINUTES 10/06/2020 12:00:00 AM EDT MED[facility] ([facility]) OFFICE OUTPATIENT VISIT 25 MINUTES 09/06/2020 12:00:00 AM EDT MED[facility] ([facility]) Ercp For Removal Stone(S) Biliary/Pancreatic Ducts 08/19/2020 12:00:00 AM EDT MED[facility] ([facility]) Ercp Removal & Exchange Stents Biliary/Pancreatic Duct 08/19/2020 12:00:00 AM EDT [facility] ([facility]) ENDOSCOPIC CATHJ BILIARY DUCTAL SYSTEM RS&I 08/19/2020 12:00:00 AM EDT MED[facility] ([facility]) OFFICE OUTPATIENT VISIT 25 MINUTES 08/01/2020 12:00:00 AM EDT MED[facility] ([facility]) OFFICE OUTPATIENT VISIT 25 MINUTES 07/22/2020 12:00:00 AM EDT MED[facility] ([facility]) OFFICE OUTPATIENT VISIT 10 MINUTES 07/19/2020 12:00:00 AM EDT MED[facility] ([facility] Ercp For Removal Stone(S) Biliary/Pancreatic Ducts 06/23/2020 12:00:00 AM EDT MED[facility] ([facility]) Ercp Removal & Exchange Stents Biliary/Pancreatic Duct 06/23/2020 12:00:00 AM EDT MED[facility] ([facility]) ENDOSCOPIC CATHJ BILIARY DUCTAL SYSTEM RS&I 06/23/2020 12:00:00 AM EDT MED[facility] ([facility]) OFFICE OUTPATIENT NEW 45 MINUTES 06/16/2020 12:00:00 A M EDT MED[facility] ([facility]) Bronchospasm Evaluation 06/13/2020 12:00:00 AM EDT MED[facility] ([facility]) Plethysmography Determination Lung Volumes & Per Airway Resi st 06/13/2020 12:00:00 AM EDT MED[facility] ([facility] ) DIFFUSING CAPACITY 06/13/2020 12:00:00 AM EDT MED[facility] ([facility], ) OFFICE OUTPATIENT VISIT 25 MINUTES 06/13/2020 12:00:00 AM EDT MED[facility] ([facility], ) PHYSICIAN TELEPHONE EVALUATION 5-10 MIN 05/03/2020 12: 00:00 AM EST MEDENT ([facility], ) EEG VIDEO MONITORING <td>EEG VIDEO MONITORING</td ><td>Routine</td><td>01/15/2020 3:10 PM EST</td><td></td><td></td> 01/15/2020 03:10:00 PM Health system LAMOTRIGINE <td>LAMOTRIGINE</td><td>Rout ine</td><td>01/13/2020 5:41 AM EST</td><td></td><td> </td> 01/13/2020 05:41:00 AM Health system LAMOTRIGINE <td>LAMOTRIGINE</td><td>Rout ine</td><td>01/11/2020 12:47 PM EST</td><td></td><td> </td> 01/11/2020 12:47:00 PM Health system QUANTITATION DRUG NOT ELSEWHERE SPECIFIED <td>LAMOTRIGINE</td><td>Routine</td><td>01/11/2020 11:48 AM EST</td><td></td><td> </td> 01/11/2020 11:48:00 AM Health system GONADOTROPIN CHORIONIC QUANTITATIVE <td>BETA HCG, QUANT</td><td>Routine</td><td>01/11/2020 11:43 AM EST</td><td></td><td> </td> 01/11/2020 11:43:00 AM Health system Results ID Date Data Source [id number] 12/01/2020 03:27:00 AM EDT [facility] Name Value Range Interpretation Code Description Data Mera rce(s) Supporting Document(s) SARS-CoV-2 (COVID 19) NEGATIVE - SARS-CoV-2 (COVID19) [place] This lab was ordered by [facility] a nd reported by [facility]. ID Date Data Source [id number] 11/08/2020 11:45:00 AM EDT MEDENT ([facility], ) Name Value Range Interpretation Code Description Data Mera rce(s) Supporting Document(s) Levetiracetam [Mass/volume] in Serum or Plasma 12.6 ug/mL 10.0-40.0 MED[facility] ([facility], ) This test was developed and its performa nce characteristics determined by [facility]. It has not been cleared or approved by the Food and Drug Administration. Lamotrigine [Mass/volume] in Serum or Plasma 12.1 ug/mL 2.0-20.0 MEDENT ([facility], ) Detection Limit = 1.0 Performed at: [facility] [address] [id number] [address] [employer]: Maida Weber MD, Phone: [phone] ID Date Data Source [id number] 11/08/2020 11:45:00 AM EDT MED[facility] ([facility], ) Name Value Range Interpretation Code Description Data Mera rce(s) Supporting Document(s) Glucose, Fasting 69 mg/dL 70-100 MED[facility] ([facility], ) Blood Urea Nitrogen 13 mg/dL 7-18 MEDENT ([facility], ) Creatinine For GFR 0.80 mg/dL 0.55-1.30 [facility] ([facility], ) Glomerular Filtration Rate Laboratory test result [facility] ([facility], ) <content>Units are mL/min/1.73 m2</content>
<content></content>
<content>Chronic Kidney Disease Staging per NKF:</content>
<content></content>
<content>Stage I & II GFR >=60 Normal to Mildly Decreased</content>
<content>Stage III GFR 30- 59 Moderately Decreased</content>
<content>Stage IV GFR 15-29 Severely Decreased</content>
<content>Stage V GFR <15 Very Little GFR Left</content>
<content>ESRD GFR <15 on DYE HOUSE WHEEL OPERATOR</content>
<content></content> Sodium Level 139 meq/L 136-145 MED[facility] ([facility], ) Chloride Level 106 meq/L 98-107 MED[facility] ([facility]) Potassium Serum 5.0 meq/L 3.5-5.1 MED[facility] ([facility]) Anion Gap 5 meq/L 8-16 MED[facility] ([facility]) Carbon Dioxide Level 28 meq/L 21-32 MED[facility] ([facility]) Calcium Level 9.7 mg/dL 8.5-10.1 MED[facility] ([facility]) Ast/Sgot 15 U/L 7-37 [facility] ([facility]) Alt/SGPT 26 U/L 12-78 [facility] ([facility]) Bilirubin,Total 0.4 mg/dL 0.2-1.0 [facility] ([facility]) Alkaline Phosphatase 206 U/L 45-117 [facility] ([facility]) Albumin 3.8 GM/DL 3.2-5.2 [facility] ([facility]) Total Protein 7.3 GM/DL 6.4-8.2 [facility] ([facility]) Albumin/Globulin Ratio 1.1 1.2-2.2 MED[facility] ([facility]) ID Date Data Source [id number] 11/08/2020 11:45:00 AM EDT MED[facility] ([facility]) Name Value Range Interpretation Code Description Data Mera rce(s) Supporting Document(s) White Blood Count 8.3 10 4.0-10.0 MED[facility] ([facility], ) Red Blood Count 5.09 10 4.00-5.40 MED[facility] ([facility]) Hemoglobin 13.7 g/dL 12.0-15.5 MED[facility] ([facility]) Hematocrit 43.1 % 36.0-47.0 [facility] ([facility]) Mean Corpuscular HGB Conc 31.8 g/dL 32.0-36.5 MED[facility] ([facility]) Mean Corpuscular Hemoglobin 26.9 pg 27.0-33.0 [facility] ([facility]) Mean Corpuscular Volume 84.7 fl 80.0-96.0 M EDENT ([facility]) Platelet Count, Automated 332 10 150-450 MED[facility] ([facility]) Red Cell Distribution Width 12.8 % 11.5-14.5 MED[facility] ([facility]) Neutrophils % 76.8 % 36.0-66.0 [facility] ([facility]) Lymph % 12.4 % 24.0-44.0 MED[facility] ([facility]) Harney % 7.8 % 2.0-8.0 MED[facility] ([facility]) Eos % 1.8 % 0.0-3.0 [facility] ([facility]) Immature [facility]ulocyte % 0[facility]6 % 0[facility].0 [facility] Baso % 0.6 % 0.0-1.0 MED[facility] ([facility]) Nucleated Red Blood Cell % 0.0 % 0-0 [facility] ([facility]) Neutrophils # 6.3 10 1.5-8.5 [facility] ([facility]) [place] # 0.6 10 0.0-0.8 [facility] ([facility]) Lymph # 1.0 10 1.5-5.0 [facility] ([facility]) Eos # 0.2 10 0.0-0.5 [facility] ([facility]) Baso # 0.1 10 0.0-0.2 [facility] ([facility]) ID Date Data Source [id number] 09/19/2020 08:33:00 AM EDT [facility] ([facility]) Name Value Range Interpretation Code Description Data Mera rce(s) Supporting Document(s) Gamma glutamyl transferase [Enzymatic activity/volume] in Serum or Plasma 73 U/L 5-55 Above high normal [facility] ([facility], ) <content>note:<nlbl:[email or web address]> </content>
<content></content> ID Date Data Source [id number] 09/19/2020 08:33:00 AM EDT [facility] ([facility], ) Name Value Range Interpretation Code Description Data Mera rce(s) Supporting Document(s) Ast/Sgot 15 U/L 7-37 Normal (applies to non-numeric resul ts) [facility] ([facility], ) Alt/SGPT 22 U/L 12-78 Normal (applies to non-numeric resul ts) [facility] ([facility]) Alkaline Phosphatase 183 U/L 45-117 Above high normal [facility] ([facility]) Bilirubin,Total 0.6 mg/dL 0.2-1.0 Normal (applies to non-numeric results) [facility] ([facility]) Albumin 3.5 GM/DL 3.2-5.2 Normal (applies to non-numeric resul ts) [facility] ([facility]) Bilirubin,Direct 0.2 mg/dL 0.0-0.2 Normal (applies to non-numeric results) [facility] ([facility]) Total Protein 6.8 GM/DL 6.4-8.2 Normal (applies to non-numeric re sults) [facility] ([facility]) Albumin/Globulin Ratio 1.1 1.2-2.2 Below low normal [facility] ([facility]) ID Date Data Source [id number] 09/19/2020 08:33:00 AM EDT [facility] Name Value Range Interpretation Code Description Data Mera rce(s) Supporting Document(s) White Blood Count 5.2 10 4.0-10.0 Normal (applies to non-numeri c results) [facility] ([facility]) Hemoglobin 13.1 g/dL 12.0-15.5 Normal (applies to non-numeric resul ts) [facility] ([facility]) Red Blood Count 4.88 10 4.00-5.40 Normal (applies to non-numeric results) [facility] ([facility], ) Mean Corpuscular Hemoglobin 26.8 pg 27.0-33.0 Below low normal [facility] ([facility]) Mean Corpuscular Volume 84.4 fl 80.0-96.0 Normal ( applies to non-numeric results) [facility] ([facility]) Hematocrit 41.2 % 36.0-47.0 Normal (applies to non-numeric resul ts) [facility] ([facility]) Mean Corpuscular HGB Conc 31.8 g/dL 32.0-36.5 Below low normal [facility] ([facility]) Platelet Count, Automated 248 10 150-450 Normal (applies to non-numeric results) [facility] ([facility]) Red Cell Distribution Width 13.2 % 11.5-14.5 Norm al (applies to non-numeric results) [facility] ([facility]) Neutrophils % 73.7 % 36.0-66.0 Above high normal [facility] NT ([facility]) Lymph % 12.9 % 24.0-44.0 Below low normal [facility] ( [facility]) [place] % 8.7 % 2.0-8.0 Above high normal [facility] ([facility]) Eos % 3.3 % 0.0-3.0 Above high normal [facility] ([facility]) Baso % 0.8 % 0.0-1.0 Normal (applies to non-numeric resul ts) [facility] ([facility]) Immature Granulocyte % 0.6 % 0-3.0 Normal (applies to non-n umeric results) [facility] ([facility]) Lymph # 0.7 10 1.5-5.0 Below low normal [facility] ( [facility]) Neutrophils # 3.8 10 1.5-8.5 Normal (applies to non-numeric re sults) [facility] ([facility]) Nucleated Red Blood Cell % 0.0 % 0-0 Normal (applies to n on-numeric results) [facility] ([facility]) Eos # 0.2 10 0.0-0.5 Normal (applies to non-numeric resul ts) [facility]) [place] # 0.5 10 0.0-0.8 Normal (applies to non-numeric resul ts) [facility]) Baso # 0.0 10 0.0-0.2 Normal (applies to non-numeric resul ts) [facility]) ID Date Data Source [id number] 08/19/2020 05:03:00 AM EDT [facility]) Name Value Range Interpretation Code Description Data Mera rce(s) Supporting Document(s) Microscopic observation [Identifier] in Unspecified specimen by Non- gynecological cytology method Laboratory test result [facility]) SPECIMEN: Common bile duct br ushing [place] in vial received SPECIMEN ADEQUACY: Satisfactory for evaluation CATEGORIZATION: No Malignancy identified DESCRIPTIONS: Reactive ductal cells noted. COMMENTS: 08/22/2020 - 742 Signed COLEEN BRAVO(ASCP) 08/22/2020 0743 (Prelim) Signed LEAH JIMENEZ MD 08/22/2020 0911 ID Date Data Source [id number] 08/18/2020 09:05:00 AM EDT [facility] [facility]) Name Value Range Interpretation Code Description Data Mera rce(s) Supporting Document(s) Creatinine For GFR 0.77 mg/dL 0.55-1.30 Normal (applies to non -numeric results) [facility] ([facility]) Glomerular Filtration Rate Laboratory test result Normal (applies to non- numeric results) [facility]) <content>Units are mL/min/1.73 m2</content>
<content></content>
<content>Chronic Kidney Disease Staging per NKF:</content>
<content></content>
<content>Stage I & II GFR >=60 Normal to Mildly Decreased</content>
<content>Stage III GFR 30- 59 Moderately Decreased</content>
<content>Stage IV GFR 15-29 Severely Decreased</content>
<content>Stage V GFR <15 Very Little GFR Left</content>
<content>ESRD GFR <15 on DYE HOUSE WHEEL OPERATOR</content>
<content></content> ID Date Data Source [id number] 08/18/2020 09:05:00 AM EDT [facility]) Name Value Range Interpretation Code Description Data Mera rce(s) Supporting Document(s) Urea nitrogen [Mass/volume] in Serum or Plasma 12 mg/dL 7 -18 Normal (applies to non-numeric results) [facility]) <content>note:<nlbl:[email or web address]> </content>
<content></content> ID Date Data Source [id number] 08/18/2020 09:05:00 AM EDT [facility]) Name Value Range Interpretation Code Description Data Mera rce(s) Supporting Document(s) Inr 0.93 Normal (applies to non-numeric resul ts) [facility] ([facility]) THERAPUTIC HUMAN INR VALUES INDICATIONS NORMAL RANGES PROPHYLAXIS/TREATMENT OF: VENOUS THROMBOSIS 2.0-3.0 PULMONARY EMBOLISM 2.0-3.0 PREVENTION OF SYSTEMIC EMBOLISM FROM: TISSUE HEART VALVES 2.0-3.0 ACUTE MYOCARDIAL INFARCTION 2.0-3.0 VALVULAR HEART DISEASE 2.0-3.0 ATRIAL FIBRILLATION 2.0-3.0 MECHANICAL VALVES(HIGH RISK) 2.5-3.5 RECURRENT MYOCARDIAL INFARCTION 2.5-3.5 Prothrombin Time 12.7 s 12.5-14.3 Normal (applies to non-numeric results) [facility]) Partial Thromboplastin Time 37.4 s 24.2-38.5 Norm al (applies to non-numeric results) [facility]) ID Date Data Source [id number] 08/18/2020 09:05:00 AM EDT [facility]) Name Value Range Interpretation Code Description Data Mera rce(s) Supporting Document(s) Red Blood Count 5.23 10 4.00-5.40 Normal (applies to non-numeric results) [facility]) White Blood Count 7.1 10 4.0-10.0 Normal (applies to non-numeri c results) [facility]) Mean Corpuscular Volume 84.3 fl 80.0-96.0 Normal ( applies to non-numeric results) [facility] ([facility]) Hematocrit 44.1 % 36.0-47.0 Normal (applies to non-numeric resul ts) [facility]) Hemoglobin 14.1 g/dL 12.0-15.5 Normal (applies to non-numeric resul ts) [facility]) Mean Corpuscular Hemoglobin 27.0 pg 27.0-33.0 Norm al (applies to non-numeric results) [facility]) Mean Corpuscular HGB Conc 32.0 g/dL 32.0-36.5 Normal (applies to non-numeric results) [facility]) Red Cell Distribution Width 12.6 % 11.5-14.5 Norm al (applies to non-numeric results) [facility] ([facility]) Platelet Count, Automated 280 10 150-450 Normal (applies to non-numeric results) [facility]) Neutrophils % 77.7 % 36.0-66.0 Above high normal [facility] ([facility]) Lymph % 10.6 % 24.0-44.0 Below low normal [facility] ( [facility]) Harney % 7.7 % 2.0-8.0 Normal (applies to non-numeric resul ts) [facility]) Eos % 2.7 % 0.0-3.0 Normal (applies to non-numeric resul ts) [facility]) Nucleated Red Blood Cell % 0.0 % 0-0 Normal (applies to n on-numeric results) [facility]) Baso % 0.7 % 0.0-1.0 Normal (applies to non-numeric resul ts) [facility]) Immature Granulocyte % 0.6 % 0-3.0 Normal (applies to non-n umeric results) [facility] ([facility]) Lymph # 0.8 10 1.5-5.0 Below low normal [facility] ( [facility]) Neutrophils # 5.6 10 1.5-8.5 Normal (applies to non-numeric re sults) [facility] ([facility]) Harney # 0.6 10 0.0-0.8 Normal (applies to non-numeric resul ts) [facility] ([facility]) Baso # 0.1 10 0.0-0.2 Normal (applies to non-numeric resul ts) [facility] ([facility]) Eos # 0.2 10 0.0-0.5 Normal (applies to non-numeric resul ts) [facility] ([facility]) ID Date Data Source [id number] 08/18/2020 09:05:00 AM EDT [facility]) Name Value Range Interpretation Code Description Data Mera rce(s) Supporting Document(s) Ast/Sgot 12 U/L 7-37 Normal (applies to non-numeric resul ts) [facility] ([facility]) Alt/SGPT 21 U/L 12-78 Normal (applies to non-numeric resul ts) [facility] ([facility]) Alkaline Phosphatase 234 U/L 45-117 Above high normal [facility] ([facility]) Bilirubin,Total 0.7 mg/dL 0.2-1.0 Normal (applies to non-numeric results) [facility]) Total Protein 7.5 GM/DL 6.4-8.2 Normal (applies to non-numeric re sults) [facility] ([facility]) Bilirubin,Direct 0.2 mg/dL 0.0-0.2 Normal (applies to non-numeric results) [facility] ([facility]) Albumin 3.8 GM/DL 3.2-5.2 Normal (applies to non-numeric resul ts) [facility]) Albumin/Globulin Ratio 1.0 1.2-2.2 Below low normal [facility] ([facility]) ID Date Data Source [id number] 08/18/2020 09:02:00 AM EDT [facility] ([facility], ) Name Value Range Interpretation Code Description Data Mera rce(s) Supporting Document(s) Levetiracetam [Mass/volume] in Serum or Plasma 20.9 ug/mL 10.0-40.0 [facility] ([facility], ) This test was developed and its performa nce characteristics determined by [facility]. It has not been cleared or approved by the Food and Drug Administration. Lamotrigine [Mass/volume] in Serum or Plasma 13.1 ug/mL 2.0-20.0 [facility] ([facility]) Detection Limit = 1.0 Performed at: [address] [id number] [employer]: Maida Weber MD, Phone: [phone] ID Date Data Source [id number] 08/18/2020 09:02:00 AM EDT [facility] ([facility], ) Name Value Range Interpretation Code Description Data Mera rce(s) Supporting Document(s) Blood Urea Nitrogen 11 mg/dL 7-18 [facility] ([facility], ) Glucose, Fasting 72 mg/dL 70-100 [facility] ([facility]) Glomerular Filtration Rate Laboratory test result [facility] ([facility]) <content>Units are mL/min/1.73 m2</content>
<content></content>
<content>Chronic Kidney Disease Staging per NKF:</content>
<content></content>
<content>Stage I & II GFR >=60 Normal to Mildly Decreased</content>
<content>Stage III GFR 30- 59 Moderately Decreased</content>
<content>Stage IV GFR 15-29 Severely Decreased</content>
<content>Stage V GFR <15 Very Little GFR Left</content>
<content>ESRD GFR <15 on DYE HOUSE WHEEL OPERATOR</content>
<content></content> Creatinine For GFR 0.78 mg/dL 0.55-1.30 [facility] ([facility], ) Potassium Serum 4.8 meq/L 3.5-5.1 [facility] ([facility]) Sodium Level 141 meq/L 136-145 [facility] ([facility]) Chloride Level 106 meq/L 98-107 [facility] ([facility]) Anion Gap 4 meq/L 8-16 [facility] ([facility]) Carbon Dioxide Level 31 meq/L 21-32 [facility] ([facility]) Calcium Level 9.7 mg/dL 8.5-10.1 [facility] ([facility]) Ast/Sgot 11 U/L 7-37 [facility] ([facility]) Alt/SGPT 22 U/L 12-78 [facility] ([facility]) Alkaline Phosphatase 236 U/L 45-117 [facility] ([facility]) Total Protein 7.4 GM/DL 6.4-8.2 [facility] ([facility]) Bilirubin,Total 0.7 mg/dL 0.2-1.0 [facility] ([facility]) Albumin 3.7 GM/DL 3.2-5.2 [facility] ([facility]) Albumin/Globulin Ratio 1.0 1.2-2.2 [facility] ([facility]) ID Date Data Source [id number] 08/18/2020 09:02:00 AM EDT [facility] ([facility]) Name Value Range Interpretation Code Description Data Mera rce(s) Supporting Document(s) White Blood Count 7.1 10 4.0-10.0 [facility] ([facility], ) Hemoglobin 13.6 g/dL 12.0-15.5 [facility] ([facility]) Red Blood Count 5.12 10 4.00-5.40 [facility] ([facility]) Mean Corpuscular Volume 83.8 fl 80.0-96.0 M [facility] ([facility]) Hematocrit 42.9 % 36.0-47.0 [facility] ([facility]) Mean Corpuscular HGB Conc 31.7 g/dL 32.0-36.5 [facility] ([facility]) Red Cell Distribution Width 12.6 % 11.5-14.5 [facility] ([facility]) Mean Corpuscular Hemoglobin 26.6 pg 27.0-33.0 [facility] ([facility]) Platelet Count, Automated 289 10 150-450 [facility] ([facility]) Neutrophils % 79.0 % 36.0-66.0 [facility] ([facility]) Harney % 6.8 % 2.0-8.0 [facility] ([facility]) Lymph % 10.1 % 24.0-44.0 [facility] ([facility]) Eos % 2.5 % 0.0-3.0 [facility] ([facility]) Baso % 0.8 % 0.0-1.0 [facility] ([facility]) Immature Granulocyte % 0.8 % 0-3.0 [facility] ([facility]) Nucleated Red Blood Cell % 0.0 % 0-0 [facility] ([facility]) Harney # 0.5 10 0.0-0.8 [facility] ([facility]) Lymph # 0.7 10 1.5-5.0 [facility] ([facility]) Neutrophils # 5.6 10 1.5-8.5 [facility] ([facility]) Baso # 0.1 10 0.0-0.2 [facility] ([facility]) Eos # 0.2 10 0.0-0.5 [facility] ([facility]) ID Date Data Source [id number] 08/14/2020 10:45:00 AM EDT [facility] Name Value Range Interpretation Code Description Data Mera rce(s) Supporting Document(s) SARS-CoV-2 (COVID-19) RNA [Presence] in Respiratory specimen by GITA with probe detection Not Detected [facility] This lab was ordered by [facility] and reported by [employer]. ID Date Data Source [id number] 06/29/2020 08:47:00 AM EDT [facility] ([facility]) Name Value Range Interpretation Code Description Data Mera rce(s) Supporting Document(s) Levetiracetam [Mass/volume] in Serum or Plasma 16.2 ug/mL 10.0-40.0 [facility] ([facility]) This test was developed and its performa nce characteristics determined by [facility]. It has not been cleared or approved by the Food and Drug Administration. Lamotrigine [Mass/volume] in Serum or Plasma 10.1 ug/mL 2.0-20.0 [facility] ([facility], ) Testing on this sample was performed by homogeneous enzyme immunoassay. Detection Limit = 1.0 Performed at: [facility] [address] [id number] [employer]: Maida Weber MD, Phone: [phone] Performed at: [employer] [address] [place] [id number] [employer]: Nilam Mendoza [facility], Phone: [phone] ID Date Data Source [id number] 06/29/2020 08:47:00 AM EDT [facility]) Name Value Range Interpretation Code Description Data Mera rce(s) Supporting Document(s) Glucose, Fasting 92 mg/dL 70-100 [facility] ([facility], ) Blood Urea Nitrogen 14 mg/dL 7-18 [facility] ([facility]) Creatinine For GFR 0.74 mg/dL 0.55-1.30 [facility] ([facility]) Glomerular Filtration Rate Laboratory test result [facility] ([facility]) <content>Units are mL/min/1.73 m2</content>
<content></content>
<content>Chronic Kidney Disease Staging per NKF:</content>
<content></content>
<content>Stage I & II GFR >=60 Normal to Mildly Decreased</content>
<content>Stage III GFR 30- 59 Moderately Decreased</content>
<content>Stage IV GFR 15-29 Severely Decreased</content>
<content>Stage V GFR <15 Very Little GFR Left</content>
<content>ESRD GFR <15 on DYE HOUSE WHEEL OPERATOR</content>
<content></content> Potassium Serum 4.1 meq/L 3.5-5.1 [facility] ([facility], ) Sodium Level 141 meq/L 136-145 [facility] ([facility]) Carbon Dioxide Level 28 meq/L 21-32 [facility] ([facility]) Chloride Level 107 meq/L 98-107 [facility] ([facility]) Calcium Level 9.3 mg/dL 8.5-10.1 [facility] ([facility]) Ast/Sgot 11 U/L 7-37 [facility] ([facility]) Anion Gap 6 meq/L 8-16 [facility] ([facility]) Alkaline Phosphatase 286 U/L 45-117 [facility] ([facility]) Alt/SGPT 19 U/L 12-78 [facility] ([facility]) Total Protein 7.4 GM/DL 6.4-8.2 [facility] ([facility]) Bilirubin,Total 0.4 mg/dL 0.2-1.0 [facility] ([facility]) Albumin 3.5 GM/DL 3.2-5.2 [facility] ([facility]) Albumin/Globulin Ratio 0.9 1.2-2.2 [facility] ([facility]) ID Date Data Source [id number] 06/29/2020 08:47:00 AM EDT [facility] ([facility]) Name Value Range Interpretation Code Description Data Mera rce(s) Supporting Document(s) Red Blood Count 4.84 10 4.00-5.40 [facility] ([facility]) Hemoglobin 13.6 g/dL 12.0-15.5 [facility] ([facility]) White Blood Count 7.3 10 4.0-10.0 [facility] ([facility]) Hematocrit 42.2 % 36.0-47.0 [facility] ([facility]) Mean Corpuscular Volume 87.2 fl 80.0-96.0 M [facility] ([facility]) Mean Corpuscular Hemoglobin 28.1 pg 27.0-33.0 [facility] ([facility]) Mean Corpuscular HGB Conc 32.2 g/dL 32.0-36.5 [facility] ([facility]) Platelet Count, Automated 278 10 150-450 [facility] ([facility]) Red Cell Distribution Width 12.0 % 11.5-14.5 [facility] ([facility], ) Lymph % 9.3 % 24.0-44.0 [facility] Neutrophils % 78.1 % 36.0-66.0 [facility] ([facility], ) Harney % 7.8 % 2.0-8.0 [facility] Eos % 3.3 % 0.0-3.0 [facility] ([facility], ) Baso % 0.7 % 0.0-1.0 [facility] Immature Granulocyte % 0.8 % 0-3.0 [facility] Nucleated Red Blood Cell % 0.0 % 0-0 [facility] ([facility]) Lymph # 0.7 10 1.5-5.0 [facility] ([facility]) Neutrophils # 5.7 10 1.5-8.5 [facility] ([facility], ) Harney # 0.6 10 0.0-0.8 [facility] ([facility], ) Eos # 0.2 10 0.0-0.5 [facility] ([facility]) Baso # 0.1 10 0.0-0.2 [facility] ([facility]) ID Date Data Source [id number] 06/18/2020 09:35:00 AM EDT [facility] Name Value Range Interpretation Code Description Data Mera rce(s) Supporting Document(s) SARS-CoV-2 (COVID-19) RNA [Presence] in Respiratory specimen by GITA with probe detection Not Detected [facility] This lab was ordered by [facility] and reported by [employer]. ID Date Data Source [id number] 05/31/2020 08:29:00 AM EDT [facility] ([facility], ) Name Value Range Interpretation Code Description Data Mera rce(s) Supporting Document(s) Lamotrigine [Mass/volume] in Serum or Plasma 10.1 ug/mL 2.0-20.0 [facility] Testing on this sample was performed by homogeneous enzyme immunoassay. Detection Limit = 1.0 Performed at: [address] [id number] [employer]: Maida Weber MD, Phone: [phone] Performed at: [employer] [address] [place] [address] [id number] [employer]: Nilam Mendoza [facility], Phone: [phone] Levetiracetam [Mass/volume] in Serum or Plasma 32.1 ug/mL 10.0-40.0 [facility] ([facility], ) This test was developed and its performa nce characteristics determined by [facility]. It has not been cleared or approved by the Food and Drug Administration. ID Date Data Source [id number] 05/31/2020 08:29:00 AM EDT [facility]) Name Value Range Interpretation Code Description Data Mera rce(s) Supporting Document(s) Glucose, Fasting 100 mg/dL 70-100 [facility] ([facility]) Blood Urea Nitrogen 10 mg/dL 7-18 [facility] ([facility], ) Creatinine For GFR 0.69 mg/dL 0.55-1.30 [facility] ([facility]) Glomerular Filtration Rate Laboratory test result [facility] ([facility]) <content>Units are mL/min/1.73 m2</content>
<content></content>
<content>Chronic Kidney Disease Staging per NKF:</content>
<content></content>
<content>Stage I & II GFR >=60 Normal to Mildly Decreased</content>
<content>Stage III GFR 30- 59 Moderately Decreased</content>
<content>Stage IV GFR 15-29 Severely Decreased</content>
<content>Stage V GFR <15 Very Little GFR Left</content>
<content>ESRD GFR <15 on DYE HOUSE WHEEL OPERATOR</content>
<content></content> Sodium Level 141 meq/L 136-145 [facility] ([facility], ) Potassium Serum 3.9 meq/L 3.5-5.1 [facility] ([facility]) Carbon Dioxide Level 31 meq/L 21-32 [facility] ([facility]) Chloride Level 107 meq/L 98-107 [facility] ([facility], ) Anion Gap 3 meq/L 8-16 [facility] ([facility]) Calcium Level 9.0 mg/dL 8.5-10.1 [facility] ([facility]) Ast/Sgot 54 U/L 7-37 [facility] ([facility]) Alt/SGPT 93 U/L 12-78 [facility] ([facility]) Alkaline Phosphatase 343 U/L 45-117 [facility] ([facility]) Total Protein 6.6 GM/DL 6.4-8.2 [facility] ([facility]) Bilirubin,Total 0.4 mg/dL 0.2-1.0 [facility] ([facility]) Albumin 3.1 GM/DL 3.2-5.2 [facility] ([facility]) Albumin/Globulin Ratio 0.9 1.2-2.2 [facility] ([facility]) ID Date Data Source [id number] 05/31/2020 08:29:00 AM EDT [facility] ([facility]) Name Value Range Interpretation Code Description Data Mera rce(s) Supporting Document(s) Red Blood Count 4.70 10 4.00-5.40 [facility] ([facility]) White Blood Count 6.2 10 4.0-10.0 [facility] ([facility]) Hemoglobin 13.2 g/dL 12.0-15.5 [facility] ([facility], ) Hematocrit 40.9 % 36.0-47.0 [facility] ([facility], ) Mean Corpuscular Volume 87.0 fl 80.0-96.0 M [facility] ([facility], ) Mean Corpuscular HGB Conc 32.3 g/dL 32.0-36.5 [facility] ([facility]) Mean Corpuscular Hemoglobin 28.1 pg 27.0-33.0 [facility] ([facility]) Red Cell Distribution Width 12.6 % 11.5-14.5 [facility] ([facility]) Platelet Count, Automated 241 10 150-450 [facility] ([facility]) Lymph % 12.1 % 24.0-44.0 [facility] ([facility], ) Neutrophils % 73.1 % 36.0-66.0 [facility] ([facility], ) Harney % 9.2 % 2.0-8.0 [facility] ([facility]) Eos % 3.4 % 0.0-3.0 [facility] ([facility]) Baso % 0.6 % 0.0-1.0 [facility] ([facility]) Nucleated Red Blood Cell % 0.0 % 0-0 [facility] Immature Granulocyte % 1.6 % 0-3.0 [facility] ([facility]) Lymph # 0.8 10 1.5-5.0 [facility] ([facility]) Neutrophils # 4.6 10 1.5-8.5 [facility] ([facility]) Harney # 0.6 10 0.0-0.8 [facility] ([facility]) Eos # 0.2 10 0.0-0.5 [facility] ([facility]) Baso # 0.0 10 0.0-0.2 [facility] ([facility]) ID Date Data Source [id number] 05/03/2020 07:31:00 AM EST [facility] ([facility]) Name Value Range Interpretation [...] immunoassay. Detection Limit = 1.0 Performed at: [address] [id number] [employer]: Maida Weber MD, Phone: [phone] Performed at: [email or web address] [address] [id number] [employer]: Nilam Mendoza [facility], Phone: [phone] ID Date Data Source [id number] 05/03/2020 07:31:00 AM EST [facility] ([facility]) Name Value Range Interpretation Code Description Data Mera rce(s) Supporting Document(s) Glucose, Fasting 74 mg/dL 70-100 [facility] ([facility], ) Blood Urea Nitrogen 13 mg/dL 7-18 [facility] ([facility], ) Creatinine For GFR 0.81 mg/dL 0.55-1.30 [facility] ([facility]) Sodium Level 142 meq/L 136-145 [facility] ([facility]) Glomerular Filtration Rate Laboratory test result [facility] ([facility]) <content>Units are mL/min/1.73 m2</content>
<content></content>
<content>Chronic Kidney Disease Staging per NKF:</content>
<content></content>
<content>Stage I & II GFR >=60 Normal to Mildly Decreased</content>
<content>Stage III GFR 30- 59 Moderately Decreased</content>
<content>Stage IV GFR 15-29 Severely Decreased</content>
<content>Stage V GFR <15 Very Little GFR Left</content>
<content>ESRD GFR <15 on DYE HOUSE WHEEL OPERATOR</content>
<content></content> Potassium Serum 4.1 meq/L 3.5-5.1 [facility] ([facility]) Chloride Level 105 meq/L 98-107 [facility] ([facility]) Anion Gap 8 meq/L 8-16 [facility] ([facility]) Calcium Level 9.2 mg/dL 8.5-10.1 [facility] ([facility]) Carbon Dioxide Level 29 meq/L 21-32 [facility] ([facility]) Alt/SGPT 38 U/L 12-78 [facility] ([facility]) Ast/Sgot 22 U/L 7-37 [facility] ([facility]) Alkaline Phosphatase 263 U/L 45-117 [facility] ([facility]) Bilirubin,Total 0.5 mg/dL 0.2-1.0 [facility] ([facility]) Total Protein 6.8 GM/DL 6.4-8.2 [facility] ([facility]) Albumin 3.6 GM/DL 3.2-5.2 [facility] ([facility]) Albumin/Globulin Ratio 1.1 1.2-2.2 [facility] ([facility]) ID Date Data Source [id number] 05/03/2020 07:31:00 AM EST [facility] ([facility]) Name Value Range Interpretation Code Description Data Mera rce(s) Supporting Document(s) White Blood Count 5.0 10 4.0-10.0 [facility] ([facility]) Hemoglobin 13.7 g/dL 12.0-15.5 [facility] ([facility]) Red Blood Count 4.92 10 4.00-5.40 [facility] ([facility]) Hematocrit 42.8 % 36.0-47.0 [facility] ([facility]) Mean Corpuscular Volume 87.0 fl 80.0-96.0 M [facility] ([facility]) Mean Corpuscular Hemoglobin 27.8 pg 27.0-33.0 [facility] ([facility]) Red Cell Distribution Width 13.1 % 11.5-14.5 [facility] ([facility]) Mean Corpuscular HGB Conc 32.0 g/dL 32.0-36.5 [facility] ([facility]) Neutrophils % 65.6 % 36.0-66.0 [facility] ([facility]) Platelet Count, Automated 248 10 150-450 [facility] ([facility]) Harney % 11.9 % 2.0-8.0 [facility] Lymph % 16.3 % 24.0-44.0 [facility] ([facility]) Eos % 4.8 % 0.0-3.0 [facility] ([facility]) Baso % 1.2 % 0.0-1.0 [facility] ([facility]) Nucleated Red Blood Cell % 0.0 % 0-0 [facility] ([facility]) Immature Granulocyte % 0.2 % 0-3.0 [facility] ([facility]) Lymph # 0.8 10 1.5-5.0 [facility] ([facility], ) Neutrophils # 3.3 10 1.5-8.5 [facility] ([facility], ) Harney # 0.6 10 0.0-0.8 [facility] ([facility], ) Eos # 0.2 10 0.0-0.5 [facility] ([facility], ) Baso # 0.1 10 0.0-0.2 [facility] ([facility], ) ID Date Data Source [id number] 04/12/2020 11:09:00 AM EST [facility] ([facility]) Name Value Range Interpretation Code Description Data Mera rce(s) Supporting Document(s) Lamotrigine [Mass/volume] in Serum or Plasma 6.7 ug/mL 2.0-20.0 [facility] ([facility], ) Testing on this sample was performed by homogeneous enzyme immunoassay. Detection Limit = 1.0 Performed at: [email or web address] [place] [address] [employer]er Soda: Nilam Mendoza [facility], Phone: [phone] ID Date Data Source [id number] 04/12/2020 11:09:00 AM EST [facility] ([facility]) Name Value Range Interpretation Code Description Data Mera rce(s) Supporting Document(s) Glucose, Fasting 86 mg/dL 70-100 [facility] ([facility], ) Creatinine For GFR 0.86 mg/dL 0.55-1.30 [facility] ([facility], ) Blood Urea Nitrogen 12 mg/dL 7-18 [facility] ([facility], ) Glomerular Filtration Rate Laboratory test result [facility] ([facility]) <content>Units are mL/min/1.73 m2</content>
<content></content>
<content>Chronic Kidney Disease Staging per NKF:</content>
<content></content>
<content>Stage I & II GFR >=60 Normal to Mildly Decreased</content>
<content>Stage III GFR 30- 59 Moderately Decreased</content>
<content>Stage IV GFR 15-29 Severely Decreased</content>
<content>Stage V GFR <15 Very Little GFR Left</content>
<content>ESRD GFR <15 on DYE HOUSE WHEEL OPERATOR</content>
<content></content> Sodium Level 141 meq/L 136-145 [facility] ([facility]) Potassium Serum 4.3 meq/L 3.5-5.1 [facility] ([facility]) Chloride Level 105 meq/L 98-107 [facility] ([facility]) Carbon Dioxide Level 28 meq/L 21-32 [facility] ([facility]) Anion Gap 8 meq/L 8-16 [facility] ([facility]) Calcium Level 10.0 mg/dL 8.5-10.1 [facility] ([facility]) Ast/Sgot 27 U/L 7-37 [facility] ([facility]) Alt/SGPT 42 U/L 12-78 [facility] ([facility]) Bilirubin,Total 0.8 mg/dL 0.2-1.0 [facility] ([facility]) Alkaline Phosphatase 487 U/L 45-117 [facility] ([facility]) Total Protein 6.9 GM/DL 6.4-8.2 [facility] ([facility]) Albumin/Globulin Ratio 1.0 1.2-2.2 [facility] ([facility]) Albumin 3.5 GM/DL 3.2-5.2 [facility] ([facility]) ID Date Data Source HEPATITIS B SURFACE ANTIGEN 2020 12:00:00 AM EST eCW1 ([facility]) Name Value Range Interpretation Code Description Data Mera rce(s) Supporting Document(s) NEGATIVE NEGATIVE HEPATITIS B SURFACE ANTIG EN eCW1 ([facility]) ID Date Data Source HEPATITIS C ANTIBODY INDEX 2020 12:00:00 AM EST eCW1 ( [facility]) Name Value Range Interpretation Code Description Data Mera rce(s) Supporting Document(s) < 0.0 <0.8 HEPATITIS C VIRUS JOSE JUAN IND EX eCW1 ([facility]) ID Date Data Source HEPATITIS B SURFACE ANTIBODY 2020 12:00:00 AM EST eCW1 ([facility]) Name Value Range Interpretation Code Description Data Mera rce(s) Supporting Document(s) NEGATIVE POSITIVE HEPATITIS B SURFACE ANTIB SAUL eCW1 ([facility]) ID Date Data Source HEPATITIS A ANTIBODY IGM 2020 12:00:00 AM EST [facility]CW[facility] Name Value Range Interpretation Code Description Data Mera rce(s) Supporting Document(s) NEGATIVE NEGATIVE HEPATITIS A ANTIBODY IGM eCW1 ([facility]) ID Date Data Source GAMMA GLUTAMYLTRANSPEPTIDASE 2020 12:00:00 AM EST eCW1 ([facility]) Name Value Range Interpretation Code Description Data Mera rce(s) Supporting Document(s) 320 5-55 GAMMA GLUTAMYLTRANSPEPTIDASE e CW1 ([facility]) ID Date Data Source [id number] 03/23/2020 09:39:00 AM EST [facility] ([facility] [...] immunoassay. Detection Limit = 1.0 Performed at: [employer] [address] [place] [id number] [employer]er Soda: Nilam Mendoza [facility], Phone: [phone] ID Date Data Source [id number] 03/14/2020 10:17:00 AM EST [facility] Name Value Range Interpretation Code Description Data Mera rce(s) Supporting Document(s) Respiratory specimen severe acute respir atory syndrome coronavirus 2 (SARS-CoV-2) RNA [facility] This lab was ordered by Stephanie porras and reported by . ID Date Data Source [id number] 03/14/2020 10:14:00 AM EST [facility] Name Value Range Interpretation Code Description Data Mera rce(s) Supporting Document(s) Respiratory specimen severe acute respir atory syndrome coronavirus 2 (SARS-CoV-2) RNA [facility] and reported by . ID Date Data Source [id number] 03/14/2020 10:14:00 AM EST [facility] Name Value Range Interpretation Code Description Data Mera rce(s) Supporting Document(s) Respiratory specimen severe acute respir atory syndrome coronavirus 2 (SARS-CoV-2) RNA [facility] This lab was ordered by [facility] vern and reported by . ID Date Data Source [id number] 03/10/2020 08:32:00 AM [facility] Name Value Range Interpretation Code Description Data Mera rce(s) Supporting Document(s) SARS-CoV-2 RNA INHOUSE Negative Normal (applies to non-n umeric results) [facility] THIS IS A [facility] REPORTABLE COMMUNICABLE DISEASE. Testing was performed using the [employer] COVID-19 MDx Assay. This test has been [...] be found at the following links: Providers: https://www.fda.gov/media/325399/download Patients : https://www.fda.gov/media/393360/download THIS IS A [facility] REPORTABLE COMMUNICABLE DISEASE Negative results do not preclude SARS-CoV-2 infection and should not be used as the sole basis for patient management decisions. Negative results must be combined with clinical observations,patient history, and epidemiological information. ID Date Data Source [id number] 03/03/2020 06:48:00 PM [facility] Name Value Range Interpretation Code Description Data Mera rce(s) Supporting Document(s) SARS-CoV-2 RNA INHOUSE Negative Normal (applies to non-n umeric results) [facility] THIS IS A [facility] REPORTABLE COMMUNICABLE DISEASE. Testing was performed using the [employer] COVID-19 MDx Assay. This test has been [...] be found at the following links: Providers: https://www.[employer].gov/media/813789/download Patients : https://www.fda.gov/media/839098/download THIS IS A [facility] REPORTABLE COMMUNICABLE DISEASE Negative results do not preclude SARS-CoV-2 infection and should not be used as the sole basis for patient management decisions. Negative results must be combined with clinical observations,patient history, and epidemiological information. ID Date Data Source [id number] 02/23/2020 07:15:00 AM [facility] Name Value Range Interpretation Code Description Data Mera rce(s) Supporting Document(s) SARS-CoV-2 GITA result Not Detected Normal (applies to non- numeric results) [facility] This nucleic acid amplification test was developed and its performance characteristics determined by [employer]. Nucleic acid amplification tests include PCR and [...] detected) result in this assay. Performed at: [employer] [address] [place], [place] [id number] Cooker Soda: Nelsy Ordoñez PhD, Phone: [phone] Testing was performed using the [employer] SARS-CoV-2 assay. This nucleic acid amplification test was developed and its performance characteristics determined by [employer]. Nucleic acid amplification tests include PCR and [...] result in this assay. Performed at: [address] [id number] Cooker Soda: Ana Taylor MD, Phone: [phone] ID Date Data Source [id number] 02/11/2020 11:29:00 AM EST [facility] Name Value Range Interpretation Code Description Data Mera rce(s) Supporting Document(s) SARS coronavirus 2 RNA [facility] This lab was ordered by Cathi woods and reported by [facility]. ID Date Data Source [id number] 02/14/2020 02:39:00 PM [facility] Name Value Range Interpretation Code Description Data Mera rce(s) Supporting Document(s) COVID-19 Result Not Detected Normal (applies to non-numeri c results) [facility] This nucleic acid amplification test was developed and its performance characteristics determined by [employer]. Nucleic acid amplification tests include PCR and [...] detected) result in this assay. Performed at: [facility] [address] [place], [place] [id number] Cooker Soda: Nelsy Ordoñez PhD, Phone: [phone] Testing was performed using the [employer] SARS-CoV-2 assay. This nucleic acid amplification test was developed and its performance characteristics determined by [employer]. Nucleic acid amplification tests include PCR and [...] result in this assay. Performed at: [address] [id number] [employer] Soda: Ana Taylor MD, Phone: [phone] ID Date Data Source [id number] 01/16/2020 12:26:11 PM [facility] Name Value Range Interpretation Code Description Data Mera e(s) Supporting Document(s) Discharge Summary [facility] OFDVNs7gOkADGhPn16/AVZhjOCQsk8JiNThaCUt9PFkzGZBrD7EqJHB3eU4tCZR6EIvRYqRjMjDjFDN6 m [file] RqBXY2MqN3COFhVsUnNMquJ1Z4PR9xABMGTe5+ARyyjYSjrKdjGVUXWzNvNeV5EAjxXKZKZk2H ID Date Data Source [id number] 01/15/2020 03:36:41 PM [facility] Name Value Range Interpretation Code Description Data Mera rce(s) Supporting Document(s) History and Physical [facility] VJXBAy5sQpICKmKl60/DDJdaDWSqs5OnAHldHUy8HHlkNNNjJ7VlRDW9bT5gOHX7QZiZTgCiCyVoPMB3 lbm [file] Ev5+M/ocWSy0v4wnEyHV92qwM64TpgwkhOArxpz98kTv4lDewYFP5id/qj+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/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 [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] ICAgICAgICAgICAgICAgICAgICAgICAgICAgICAgICAgICAgICAgICAgICAgICAgICAgICAgICAgICAg ICAgICAgICAgICAgICAgICAgICAgICAgICAgICAgDQogICAgICAgICAgICAgICAgICAgICAgICAgICAg ICAgICAgICAgICAgICAgICAgICAgICAgICAgICAgIC AgICAgICAgICAgICAgICAgICAgICAgICAgICAgICAgICAgICAgICAgDQogICAgICAgICAgICAgICAgIC AgICAgICAgICAgICAgICAgICAgICAgICAgICAgICAgICAgICAgICAgICAgICAgICAgICAgICAgICAgIC AgICAgICAgICAgICAgICAgICAgICAgDQogICAgICAg ICAgICAgICAgICAgICAgICAgICAgICAgICAgICAgICAgICAgICAgICAgICAgICAgICAgICAgICAgICAg ICAgICAgICAgICAgICAgICAgICAgICAgICAgICAgICAgDQogICAgICAgICAgICAgICAgICAgICAgICAg ICAgICAgICAgICAgICAgICAgICAgICAgICAgICAgIC AgICAgICAgICAgICAgICAgICAgICAgICAgICAgICAgICAgICAgICAgICAgDQogICAgICAgICAgICAgIC AgICAgICAgICAgICAgICAgICAgICAgICAgICAgICAgICAgICAgICAgICAgICAgICAgICAgICAgICAgIC AgICAgICAgICAgICAgICAgICAgICAgICAgDQogICAg ICAgICAgICAgICAgICAgICAgICAgICAgICAgICAgICAgICAgICAgICAgICAgICAgICAgICAgICAgICAg ICAgICAgICAgICAgICAgICAgICAgICAgICAgICAgICAgICAgDQogICAgICAgICAgICAgICAgICAgICAg ICAgICAgICAgICAgICAgICAgICAgICAgICAgICAgIC AgICAgICAgICAgICAgICAgICAgICAgICAgICAgICAgICAgICAgICAgICAgICAgDQogICAgICAgICAgIC AgICAgICAgICAgICAgICAgICAgICAgICAgICAgICAgICAgICAgICAgICAgICAgICAgICAgICAgICAgIC AgICAgICAgICAgICAgICAgICAgICAgICAgICAgDQog ICAgICAgICAgICAgICAgICAgICAgICAgICAgICAgICAgICAgICAgICAgICAgICAgICAgICAgICAgICAg OIZoZDBsGGTmXQAvWCTbWGWmLUZpODFiDRPqRPNzUBMwHZCiDNYdQDk6Q2obEAGlKQTwFN5dWKx5Xh8+ ALwGLkNcVFY0ogWwkS2RNM0lc3BpMEmhQELwj7FlFA x9NH5UCENoMTphZE9VDBbhjy0ABYGxRPMxuWOTc1jlMrAwZSA5LYMaAmltSE3KRDThO7dseyKdAOVzGN OPEDwhRIHPZChkNJCUIMPtNSTnYhVhUkBaZWZyPRXvXTPYNUI0FIErPyLnSHrhQO1Bl9WlcCH1XFs+Pg 3RTF4wm2AtBYftZIRkZE6cun8YISzKAfGeP1LuzkS3 MZY7CMFeVv8UBIPmNWWohLSyZGDyLVFAFwGhC8ExuH43IENWTi7+CHouwhYhJnvNFvG2VXMzf4GkLOh5 OW1OFWLlKQh2gMLhHCETJLM2FWYayQXsPNAANTQysXrlVPXvJVYzCNFqEf4bHPRhTTKpWsV7AJEQMI5Z ZQHqNVKlcTHjUKCdXAQKIT0SJYrwFEH9IKFxrcYjbG TlEVdkDI7XHCFahiSjWeVvERLHGFq+Jh4TQE6lw8ZhFRkrXcYlKP0tjq6MTCmSNwBoB3C7tATeK3T0OE plIq2OSWUvRFOpVmIoQOVJDVixJG1IEJ9yavM8FR0YyULiNHVcKNWrqBAmEQz8G71oiVJkMJhwER6MWK A+Dania+Ja6HLXShDILgQGNuEeSgPOJNWfAcV6VdT2PQ i6RyC4NpVY07eWpqbdNwFJudCP7ZEK3oQMRbTHZTBR8KsQJvxL0troIpJHBsNUEHOvWaU53rvGDvLANe DYBtEMNuHi4JXJBgA7SsxzKgkElzdlOuGMYsESXXMV5VQNraduAovCWusJkmWB73aFyqRR4CAk0LTtDr OS8bpx4WoOXvMm1OFGDzYj2IAXMlTTSsMYOkBAR2WI LlRaCeVForLPDrPVXuQVX5YSZtUCFlWS1ILsTeGDRxBio4AVZbOPPtYOYvxx0UQWJnOND3HODeNBQiIT EwKSZwTGzlCNRzMZEeGOO5OQBqBIEyGC6RCnOcNWXtJNCvKIIuYARuTYLsfg3UGIXtTZKgEKN4OOYxHG AbXLTuYVveLHKaOSL8HGZ4VKAsRPNvDT4GKsOkJQMh AAasZkIpOWMoGEYxnm5OVQLpNCXoJTu0RFInPQHdFEIgCIxxDFQgZOXeWYf8XDGsTAOiYS2WSfUsMSJc PDO0LeDvCEAuIPTdxp6GPXMbIDBvJJtpCZCvYLAyPQPxFEfqHXGhZZD8QiK3JLNbFESkJI3MUfIfLOQm ELh1UxNdIIByAVZjqv8XEFAzDHRnDLngYdUnTIWwBZ QxPIyvMZGfQGAwTAX6WSHnTMAfRN3CLpEcGMNkRwQ3WNIwWNDwBMVhuq3CAGEfVGViSzP6UxTvRKQdJX FyJLkwWFUmDDKfNFP2VMTzBKIeIF5SCiZjGCQcPpLxCQEnVIBaFIDtel4LKRLfIZVaQmU3LcVgNYSyYL IfXMczTAXuXYK8BxZ9KLGmTXNnMH3AQyCnDQRuEuH0 OSrjGFHuIAHadu0XSWDdOPUnGGq9IAYeNPCkHLFdFEitEUJnIAF6CfM9LRAtYUBqQS2PKpWoROYkZlR2 ZGDsCCBjGKGdjp5CNHOpXNOwUzP6IRUvCHFvBDYoAVxaEHOwVFB4DZuvORKuWWYaQL6VNzOjCDIdFrs4 TYjnTZMqNVYuxg3TECXqXMWxCoc0XxGwMOJbVJMcPO owMBYeESW0DmR1FKVxETFdGX7FWiFbQJTmBwcuPMShSCMeISZwfa9YQIObOWZyLFv3FDAwUGHuVMHgSZ shBTFcBAMuDlx1IOUbVGVcBS9YGeLvBVYrMNNbNFldNHNtKOUghh7SFZNpNQA7YVJ9VOMlDHBfHZBjMU r5dbKtfNSzEYn6PC0XK1TmgiWbJxvXCh3Gp546COZ4 LDWwJt8BA9bmYj1xEWKpAJHUPp2TYTg7ZTriU3LsSUDfXXDeSrX5ZgJeRAiuDvXgBml1LoWkYKD+IDww Q8GcItMdC9V9ZkDmMEgzUmPaOIC2VRHoZkR8GbEdFD1uGBXYXf4+IUalqZThmLuyZKVJGbDeTwZ2PCrs ILABLv2B ID Date Data Source [id number] 01/13/2020 09:31:45 AM [facility] Value Range Interpretation Code Description Data Mera rce(s) Supporting Document(s) Lamotrigine [Mass/volume] in Serum or Plasma 6.4 ug/mL 3.0-14.0 [facility] ID Date Data Source [id number] 01/11/2020 04:48:59 PM [facility] Value Range Interpretation Code Description Data Mera rce(s) Supporting Document(s) Lamotrigine [Mass/volume] in Serum or Plasma 10.0 ug/mL 3.0-14.0 [facility] ID Date Data Source [id number] 01/11/2020 12:16:16 PM [facility] Value Range Interpretation Code Description Data Mera rce(s) Supporting Document(s) Lamotrigine [Mass/volume] in Serum or Plasma 3.0-14.0 [facility] Specimen HemolyzedNotified [id number] /EMU 01/11/20 [id number]. ID Date Data Source [id number] 01/11/2020 12:40:51 PM [facility] Value Range Interpretation Code Description Data Mera rce(s) Supporting Document(s) Choriogonadotropin.beta subunit [Moles/volume] in Serum or Plasma <5 [facility] ID Date Data Source [id number] 01/19/2020 10:40:00 AM [facility] First test? NOEmployed in healthcare? NOSymptomatic per CDC? NOHospitalized? NOICU? NOResident in congregated care? ex half-way, ARC NO? NO Name Value Range Interpretation Code Description Data Mera rce(s) Supporting Document(s) SARS-CoV-2 RNA Negative Normal (applies to non-numeric r esults) [facility] Negative results should be treated as [...] Certificate of Accreditation. Factsheets for healthcare providers: https://www.fda.gov/media/400035/download Factsheets for patients: https://www.fda.gov/media/963974/download The ID NOW Instrument is a rapid molecular in vitro diagnostic test utilizing an isothermal nucleic acid amplification technology intended for the qualitative detection of nucleic acid from the SARS-CoV-2 viral RNA. THIS IS A STATE REPORTABLE COMMUNICABLE DISEASE. Manual entry verified by Mayelin Denson 01/19/20 1038 ID Date Data Source [id number] 01/19/2020 12:50:00 PM EST [facility] COVID-19 Patient Ethnicity Not or LatinoCOVID-19 Patient Race WhiteCOVID-19 Specimen Source Nasopharyngeal Name Value Range Interpretation Code Description Data Mera rce(s) Supporting Document(s) SARS-CoV-2 Specimen Source Normal (applies to n on-numeric results) [facility] SARS-CoV-2 RNA Normal (applies to non-numeric r esults) [facility] Patient Race Normal (applies to non-numeric result s) [facility] Patient Ethnicity Normal (applies to non-numeri c results) [facility] See scanned report ID Date Data Source [id number] 12/10/2019 08:10:00 AM EDT MEDENT ([facility], ) Name Value Range Interpretation Code Description Data Mera rce(s) Supporting Document(s) FVC-Pred 4.03 L MEDENT ([facility], ) PDFReport Laboratory test result MEDENT ([facility], ) FVC-LLN 3.29 L MEDENT ([facility]) FVC-%Pred-Pre 30 L MEDENT ([facility]) FVC-Pre 1.22 L MEDENT ([facility]) Fev1-Pred 3.40 L MEDENT ([facility]) Fev1-Pre 1.21 L MEDENT ([facility]) Fev1-%Pred-Pre 35 L MEDENT ([facility]) Fev1-LLN 2.77 L MEDENT ([facility]) Fev6-Pre 1.22 L MEDENT ([facility]) Fev6-Pred 3.99 L MEDENT ([facility]) Fev6-%Pred-Pre 30 L MEDENT ([facility]) Fev6-LLN 3.27 L MEDENT ([facility]) Ceo2nii-Dsq 99 % MEDENT ([facility]) Ekh2gqp-Natl 85 % [facility] ([facility]) Lat0nnb-Ibij 99 % [facility] ([facility]) Mfu1dqe-LZK 75 % [facility] ([facility]) Jpu8ist-%Pred-Pre 116 % MED[facility] ([facility]) FEFMax-Pred 7.30 L/E/sec MED[facility] ([facility]) Bsq8ivt-Ynh 100 % [facility] ([facility]) Hxv0xse-%Pred-Pre 100 % [facility] ([facility]) FEFMax-%Pred-Pre 26 L/E/sec MEDENT ([facility]) FEFMax-Pre 1.96 L/E/sec [facility] ([facility]) FEFMax-LLN 5.48 L/E/sec MED[facility] ([facility]) Zmo4275-Seca 3.61 L/E/sec MED[facility] ([facility]) Jrd6786-AEY 2.29 L/E/sec [facility] ([facility]) Cnk4866-%Pred-Pre 45 L/E/sec MEDENT ([facility]) Dbd8526-Qjk 1.64 L/E/sec MED[facility] ([facility]) ExpTime-Pre 1.59 sec MEDENT ([facility]) Eig8jze7-Krag 86 % [facility] ([facility]) Xix8iej6-%Pred-Pre 115 % [facility] ([facility]) Gas7abm0-Dwb 99 % [facility] ([facility]) Bat7kdn5-GOE 77 % [facility] ([facility]) ID Date Data Source [id number] 11/06/2019 03:49:00 PM EDT MEDENT ([facility]) Name Value Range Interpretation Code Description Data Mera rce(s) Supporting Document(s) Lamotrigine [Mass/volume] in Serum or Plasma 9.0 ug/mL 2.0-20.0 [facility] Testing on this sample was performed by homogeneous enzyme immunoassay. Detection Limit = 1.0 Performed at: [employer] [address] [place] [id number] [employer]er Soda: Nilam Mendoza [facility], Phone: [phone] Procedure Social History Code Duration Value Status Description Data Source(s ) Smoking 11/25/2020 12:00:00 AM EDT Patient has never smoked co mpleted Patient has never smoked MEDENT ([facility]) Smoking 09/06/2020 12:00:00 AM EDT Never Smoker completed Never S moker eCW1 ([facility]) Smoking 07/26/2020 12:00:00 AM EDT Never Smoker completed Never S moker eCW1 ([facility]) Smoking 07/26/2020 12:00:00 AM EDT Never Smoker completed Never S moker eCW1 ([facility]) Smoking 07/26/2020 12:00:00 AM EDT Never Smoker completed Never S moker eCW1 ([facility]) Smoking 04/27/2020 12:00:00 AM EST Never Smoker completed Never S moker eCW1 ([facility]) Smoking 04/27/2020 12:00:00 AM EST Never Smoker completed Never S moker eCW1 ([facility]) Smoking 03/28/2020 12:00:00 AM EST Never Smoker completed Never S moker eCW1 ([facility]) Smoking 03/28/2020 12:00:00 AM EST Never Smoker completed Never S moker eCW1 ([facility]) Smoking 03/28/2020 12:00:00 AM EST Never Smoker completed Never S moker eCW1 ([facility]) Smoking 03/28/2020 12:00:00 AM EST Never Smoker completed Never S moker eCW1 ([facility]) Smoking 03/28/2020 12:00:00 AM EST Never Smoker completed Never S moker eCW1 ([facility]) Smoking 03/28/2020 12:00:00 AM EST Never Smoker completed Never S moker eCW1 ([facility]) Smoking 03/10/2020 12:00:00 AM EST Never Smoker completed Never S moker eCW1 ([facility]) Alcohol intake 01/11/2020 12:00:00 AM EST Lifetime non-drinker (finding) completed Lifetime non-drinker (finding) [facility] ital Tobacco use and exposure 01/11/2020 12:00:00 AM EST Never used co mpleted Never used [facility] Smoking 01/11/2020 12:00:00 AM EST Never smoker completed Never [facility] Vital Signs ID Date Data Source UNK Name Value Range Interpretation Code Description Data Source(s) Systolic blood pressure 116 mm[Hg] 116 mm[Hg] M EDENT ([facility]) Diastolic blood pressure 74 mm[Hg] 74 mm[Hg] [facility] ([facility]) Heart rate 79 /min 79 /min [facility] ([facility]) Oxygen saturation in Arterial blood by Pulse oximetry 98 % 98 % [facility] ([facility]) Body height 67 [in_i] 67 [in_i] [facility] ([facility]) 5'7" Body weight 186.00 [lb_av] 186.00 [lb_av] MED[facility] T ([facility]) Body mass index (BMI) [Ratio] 29.1 kg/m2 29.1 k g/m2 [facility] ([facility]) [place] body weight 135 [lb_av] 135 [lb_av] MEDEN T ([facility]) Body weight 84.370 kg 84.370 kg [facility] ([facility]) Body surface area Derived from formula 1.96 m2 1.96 m2 [facility] ([facility]) Diastolic blood pressure 80 mm[Hg] 80 mm[Hg] [facility] ([facility]) Heart rate 84 /min 84 /min [facility] ([facility]) Respiratory rate 16 /min 16 /min [facility] ( [facility]) Systolic blood pressure 110 mm[Hg] 110 mm[Hg] [facility] ([facility]) Body weight 185.00 [lb_av] 185.00 [lb_av] MEDEN T ([facility]) Body mass index (BMI) [Ratio] 29.0 kg/m2 29.0 k g/m2 [facility] ([facility]) [place] body weight 135 [lb_av] 135 [lb_av] MED[facility] T ([facility]) Body weight 83.916 kg 83.916 kg [facility] ([facility]) Body surface area Derived from formula 1.96 m2 1.96 m2 [facility] ([facility]) Body height 67 [in_i] 67 [in_i] [facility] ([facility]) 5'7" Body weight 186 [lb_av] 186 [lb_av] eCW1 ([facility]) Body weight 84.37 kg 84.37 kg eCW1 ([facility]) Body height 67 [in_i] 67 [in_i] eCW1 ([facility]) Body mass index (BMI) [Ratio] 29.13 kg/m2 29.13 kg/m2 eCW1 ([facility]) Systolic blood pressure 130 mm[Hg] 130 mm[Hg] e CW1 ([facility]) Diastolic blood pressure 82 mm[Hg] 82 mm[Hg] eCW1 ([facility]) Body weight 190.2 [lb_av] 190.2 [lb_av] eCW1 ([facility]) Body height 67 [in_i] 67 [in_i] eCW1 ([facility]) Body mass index (BMI) [Ratio] 29.79 kg/m2 29.79 kg/m2 eCW1 ([facility]) Body temperature 97.5 [degF] 97.5 [degF] eCW1 ( [facility]) Heart rate 95 /min 95 /min eCW1 ([facility]) Respiratory rate 18 /min 18 /min eCW1 ([facility] Systolic blood pressure 108 mm[Hg] 108 mm[Hg] e CW1 ([facility]) Diastolic blood pressure 74 mm[Hg] 74 mm[Hg] eCW1 ([facility]) Systolic blood pressure 110 mm[Hg] 110 mm[Hg] M EDENT ([facility], ) Diastolic blood pressure 80 mm[Hg] 80 mm[Hg] MED[facility] ([facility], ) Heart rate 76 /min 76 /min [facility] ([facility], ) Respiratory rate 16 /min 16 /min MED[facility] ( [facility], ) Body height 67 [in_i] 67 [in_i] MEDENT ([facility], ) 5'7" Body weight 194.00 [lb_av] 194.00 [lb_av] MEDEN T ([facility], ) Body mass index (BMI) [Ratio] 30.4 kg/m2 30.4 k g/m2 [facility] ([facility]) [place] body weight 135 [lb_av] 135 [lb_av] MEDEN T ([facility]) Body weight 87.998 kg 87.998 kg [facility] ([facility]) Body surface area Derived from formula 2.00 m2 2.00 m2 [facility] ([facility]) [place] body weight 135 [lb_av] 135 [lb_av] MEDEN T ([facility]) Body height 67 [in_i] 67 [in_i] [facility] ([facility]) 5'7" Systolic blood pressure 122 mm[Hg] 122 mm[Hg] M EDENT ([facility]) Diastolic blood pressure 68 mm[Hg] 68 mm[Hg] [facility] ([facility]) Body weight 194.00 [lb_av] 194.00 [lb_av] MEDEN T ([facility]) Body weight 87.998 kg 87.998 kg [facility] ([facility]) Body mass index (BMI) [Ratio] 30.4 kg/m2 30.4 k g/m2 [facility] ([facility]) Body surface area Derived from formula 2.00 m2 2.00 m2 [facility] ([facility]) Oxygen saturation in Arterial blood by Pulse oximetry 98 % 98 % [facility] ([facility]) Diastolic blood pressure 88 mm[Hg] 88 mm[Hg] [facility] ([facility]) Heart rate 62 /min 62 /min [facility] ([facility]) Body temperature 96.2 [degF] 96.2 [degF] [facility] ([facility]) Body height 66 [in_i] 66 [in_i] [facility] ([facility]) 5'6" Body weight 192.00 [lb_av] 192.00 [lb_av] MED[facility] T ([facility]) Body mass index (BMI) [Ratio] 31.0 kg/m2 31.0 k g/m2 [facility] ([facility]) Systolic blood pressure 120 mm[Hg] 120 mm[Hg] M EDENT ([facility]) [place] body weight 130 [lb_av] 130 [lb_av] [facility] T ([facility]) Body weight 87.091 kg 87.091 kg [facility] ([facility]) Body surface area Derived from formula 1.97 m2 1.97 m2 [facility] ([facility]) Oxygen saturation in Arterial blood by Pulse oximetry 98 % 98 % [facility] ([facility]) Body temperature 96.2 [degF] 96.2 [degF] [facility] ([facility]) Body height 66 [in_i] 66 [in_i] [facility] ([facility]) 5'6" Body weight 192.00 [lb_av] 192.00 [lb_av] [facility] T ([facility]) Body mass index (BMI) [Ratio] 31.0 kg/m2 31.0 k g/m2 [facility] ([facility]) [place] body weight 130 [lb_av] 130 [lb_av] [facility] T ([facility]) Body weight 87.091 kg 87.091 kg [facility] ([facility]) Body surface area Derived from formula 1.97 m2 1.97 m2 [facility] ([facility]) Body height 66 [in_i] 66 [in_i] [facility] ([facility] 5'6" Body weight 185.00 [lb_av] 185.00 [lb_av] [facility] T ([facility]) Systolic blood pressure 96 mm[Hg] 96 mm[Hg] M EDENT ([facility]) Diastolic blood pressure 74 mm[Hg] 74 mm[Hg] [facility] ([facility]) Heart rate 75 /min 75 /min [facility] Body mass index (BMI) [Ratio] 29.9 kg/m2 29.9 k g/m2 [facility] ([facility]) Body weight 83.916 kg 83.916 kg [facility] ([facility]) Body temperature 96.6 [degF] 96.6 [degF] [facility] ([facility]) Body weight 185 [lb_av] 185 [lb_av] eCW1 ([facility]) Body height 67 [in_i] 67 [in_i] eCW1 ([facility]) Body mass index (BMI) [Ratio] 28.97 kg/m2 28.97 kg/m2 eCW1 ([facility]) Heart rate 74 /min 74 /min eCW1 ([facility]) Respiratory rate 18 /min 18 /min eCW1 ([facility] Body temperature 97.1 [degF] 97.1 [degF] eCW1 ( [facility]) Systolic blood pressure 102 mm[Hg] 102 mm[Hg] e CW1 ([facility]) Diastolic blood pressure 66 mm[Hg] 66 mm[Hg] eCW1 ([facility]) Body weight 186.4 [lb_av] 186.4 [lb_av] eCW1 ([facility]) Body height 67 [in_i] 67 [in_i] eCW1 ([facility]) Body mass index (BMI) [Ratio] 29.19 kg/m2 29.19 kg/m2 eCW1 ([facility]) Heart rate 94 /min 94 /min eCW1 ([facility]) Respiratory rate 18 /min 18 /min eCW1 ([facility]) Body temperature 96.3 [degF] 96.3 [degF] eCW1 ( [facility]) Systolic blood pressure 130 mm[Hg] 130 mm[Hg] e CW1 ([facility]) Diastolic blood pressure 80 mm[Hg] 80 mm[Hg] eCW1 ([facility]) Body weight 200 [lb_av] 200 [lb_av] eCW1 ([facility]) Body height 67 [in_i] 67 [in_i] eCW1 ([facility]) Body mass index (BMI) [Ratio] 31.32 kg/m2 31.32 kg/m2 eCW1 ([facility]) Heart rate 84 /min 84 /min eCW1 ([facility]) Respiratory rate 17 /min 17 /min eCW1 ([facility] Body temperature 97.4 [degF] 97.4 [degF] eCW1 ( [facility]) Systolic blood pressure 112 mm[Hg] 112 mm[Hg] e CW1 ([facility]) Diastolic blood pressure 74 mm[Hg] 74 mm[Hg] eCW1 ([facility]) Systolic blood pressure 104 mm[Hg] 104 mm[Hg] M EDENT ([facility]) Diastolic blood pressure 82 mm[Hg] 82 mm[Hg] [facility] ([facility]) Heart rate 75 /min 75 /min [facility] ([facility]) Oxygen saturation in Arterial blood by Pulse oximetry 95 % 95 % [facility] ([facility]) Body temperature 96.5 [degF] 96.5 [degF] [facility] ([facility]) Body height 66 [in_i] 66 [in_i] [facility] ([facility]) 5'6" Body weight 179.00 [lb_av] 179.00 [lb_av] [facility] ([facility]) Body mass index (BMI) [Ratio] 28.9 kg/m2 28.9 k g/m2 [facility] ([facility]) [place] body weight 130 [lb_av] 130 [lb_av] [facility] Body weight 81.194 kg 81.194 kg [facility] ([facility]) Body surface area Derived from formula 1.91 m2 1.91 m2 [facility] ([facility]) Respiratory rate 16 /min 16 /min [facility] ( [facility]) Systolic blood pressure 110 mm[Hg] 110 mm[Hg] [facility] Diastolic blood pressure 70 mm[Hg] 70 mm[Hg] [facility] ([facility]) Heart rate 68 /min 68 /min [facility] ([facility]) ID Date Data Source [id number] 03/03/2020 10:35:00 AM EST [facility] Name Value Range Interpretation Code Description Data Source(s) Weight Measurement Method 8 8 [facility] Weight 3360 3360 [facility] pital Temperature Source 3 3 [facility] Temperature 96.0 96.0 [facility] spital Respiratory Effort 1 1 [facility] Respiratory Rate 18 18 [facility] Pulse Assessment Method 4 4 [facility] Pulse Rate 84 84 [facility]ital Height 66 66 [facility] 95/80 95/80 [facility] Weight Measurement Method 8 8 [facility] Weight 3360 3360 [facility] pital Temperature Source 3 3 [facility] Temperature 96.0 96.0 [facility] spital Respiratory Effort 1 1 [facility] Respiratory Rate 18 18 [facility] Pulse Assessment Method 4 4 G [facility] Pulse Rate 84 84 [facility] pital Height 66 66 [facility] Blood Pressure 95/80 95/80 [facility] ID Date Data Source [id number] 01/20/2020 03:57:01 PM [facility] Name Value Range Interpretation Code Description Data Source(s) WEIGHT RECORDED 204.9 lb 204.9 lb [facility] Body height Measured 67.2 in 67.2 in [facility] Patient Treatment Plan of Care Planned Activity Planned Date Details Description Data Source (s) Azelastine HCl 0.15 % 04/27/2020 12:00:00 AM EST [facility] ([facility]) Azelastine HCl 0.15 % 04/27/2020 12:00:00 AM EST eCW1 ([facility]) Sodium Chloride 0.111 MEQ/ML Nasal [place] 03/10/2020 12:00:00 AM EST [facility] ([facility]) Fluticasone Propionate 50 MCG/ACT 02/22/2020 12:00:00 AM EST eC ([facility]) Fluticasone Propionate 50 MCG/ACT 02/22/2020 12:00:00 AM EST [facility] ([facility]) Acetaminophen 325 MG Oral Tablet 01/11/2020 07:53:09 [facility] system Bisacodyl 10 MG Rectal Suppository 01/11/2020 07:53:09 AM Health system alginic acid 200 MG / Calcium Carbonate 80 MG / magnesium trisilicate 20 MG / Sodium Bicarbonate 70 MG Oral Tablet 01/11/2020 07:53:09 AM Health system Diphenhydramine Hydrochloride 25 MG Oral Capsule 01/11/2020 07:53:0 9 AM Health system Ibuprofen 200 MG Oral Tablet 01/11/2020 07:53:09 AM Health system Magnesium Hydroxide 80 MG/ML Oral Suspension 01/11/2020 07:53:09 AM Health system Ondansetron 4 MG Oral Tablet 01/11/2020 07:53:09 AM Health system drospirenone 3 MG / Ethinyl Estradiol 0.02 MG Oral Tab let 01/04/2020 12:00:00 AM [facility] lamotrigine 200 MG Oral Tablet 12/27/2019 12:00:00 AM [facility] 24 HR venlafaxine 37.5 MG Extended Release Oral Capsul e 12/27/2019 12:00:00 AM [facility] Hydroxyzine Hydrochloride 25 MG Oral Tablet 12/27/2019 12:00:00 AM [facility] aripiprazole 20 MG Oral Tablet 12/27/2019 12:00:00 AM [facility] buspirone hydrochloride 10 MG Oral Tablet 12/23/2019 12:00:00 AM [facility] 24 HR venlafaxine 75 MG Extended Release Oral Capsule 12/20/2019 12:00:00 AM [facility]
== END 2020-12-24 20:17 | disposition left against medical advice (07) ==
LOC: M ED 18:47
DX: Z53.29 Procedure and treatment not carried out because of patient's decision for other reasons (principal)

== ENCOUNTER 2020-12-23 18:47 | Emergency (ER) | payer MEDICARE, MEDICAID ==
--- OUTSIDE RECORDS SUMMARY | 2020-12-23 18:52 | CCD | Continuity of Care Document ---
Author Author Odilia MILLER M.D. Organization Unknown Address [address] [place] [address] [address] [place] [address] Phone [phone] Care Team Providers Care Livestock Producer Name Role Phone Evangelina Glass D.O. AUTM [phone] Gregorio Mathews M.D. AUTM Problems Description No Information Available Social History Type Date Description Comments Sex Unknown Tobacco Use Start: Unknown Never Smoked Cigarettes ETOH Use Denies alcohol use Recreational Drug Use Denies Drug Use Tobacco Use Start: Unknown Patient has never smoked Smoking Status Reviewed: 11/25/20 Patient has never smoked Allergies, Adverse Reactions, Alerts Description No Known Drug Allergies Medications Active Medications SIG Qnty Indications Ordering Provide r Date Ursodiol 300mg Capsules 1 cap by mouth two times a day ( take after eating/meal for course of 4 weeks) 60caps K80.71 Godfrey Dial M.D. 06/23/2020 Abilify 10mg Tablets 1tab po bid Unknown Vitamin D 2000Unit Tablets 1t ab po qd Unknown Cetirizine HCL 10mg Tablets 1tab po qd Unknown Shakila 3-0.02mg Tablets 1tab p o qd Unknown Venlafaxine HCL 75mg Tablets 1tab po qam Unknown Venlafaxine HCL 37.5mg Tablets 1tab po qam Unknown Hydroxyzine HCL 50mg Tablets 1tab po tid Unknown Lamotrigine 200mg Tablets 350mg po bid Unknown Buspirone HCL 10mg Tablets 1tab po bid Unknown Keppra 500mg Tablets 1tab po qam Unknown Azelastine HCL (Nasal) 137mcg/[place] Solution prn Unknown Systane Preservative Free 0.4-0.3% Solution 1 drop each eye every morning Unknown Keppra 500mg Tablets 1tab po qhs Unknown Systene Balance Dry Eye Relief qid Unkno wn History Medications Cipro 500mg Tablets take one tablet every 12 hours. for total of 5 days. 10tabs Godfrey booker M.D. 06/23/2020 - 06/28/2020 Immunizations CPT Code Status Date Vaccine Lot # [id number] Given 12/17/2018 Flublock, Quadrivalent Vital Signs Date Vital Result Comment 11/25/2020 9:33am BP Systolic 116 mmHg BP Diastolic 74 mmHg Heart Rate 79 /min O2 % BldC Oximetry 98 % Height 67 inches 5'7" Weight 186.00 lb BMI (Body Mass Index) 29.1 kg/m2 [place] Body Weight 135 lb Weight 84.370 kg BSA (Body Surface Area) 1.96 m2 10/06/2020 12:41pm Height 67 inches 5'7" Weight 185.00 lb BMI (Body Mass Index) 29.0 kg/m2 [place] Body Weight 135 lb Weight 83.916 kg BSA (Body Surface Area) 1.96 m2 Results Test Acquired Date Facility Test Result H/L Range Note Liver Profile 09/19/2020 [facility] Main Lab [address] [place] [address] [id number] [phone] Ast/Sgot 15 U/L Normal 7-37 Alt/SGPT 22 U/L Normal 12-78 Alkaline Phosphatase 183 U/L High 45-117 Bilirubin,Total 0.6 mg/dL Normal 0.2-1.0 Bilirubin,Direct 0.2 mg/dL Normal 0.0-0.2 Total Protein 6.8 GM/DL Normal 6.4-8.2 Albumin 3.5 GM/DL Normal 3.2-5.2 Albumin/Globulin Ratio 1.1 Low 1.2-2.2 Laboratory test finding 09/19/2020 [facility] Main Lab [address] [place] [address] [phone] Gamma Glutamyltranspeptidase 73 U/L High 5-5 5 1 CBC With Differential 09/19/2020 [facility] Main Lab [address] [place] [address] [phone] White Blood Count 5.2 10 Normal 4.0-10.0 Red Blood Count 4.88 10 Normal 4.00-5.40 Hemoglobin 13.1 g/dL Normal 12.0-15.5 Hematocrit 41.2 % Normal 36.0-47.0 Mean Corpuscular Volume 84.4 fl Normal 80.0-96.0 Mean Corpuscular Hemoglobin 26.8 pg Low 27.0-33.0 Mean Corpuscular HGB Conc 31.8 g/dL Low 32.0-36.5 Red Cell Distribution Width 13.2 % Normal 11.5-14.5 Platelet Count, Automated 248 10 Normal 150-450 Neutrophils % 73.7 % High 36.0-66.0 Lymph % 12.9 % Low 24.0-44.0 [place] % 8.7 % High 2.0-8.0 Eos % 3.3 % High 0.0-3.0 Baso % 0.8 % Normal 0.0-1.0 Immature Granulocyte % 0.6 % Normal 0-3.0 Nucleated Red Blood Cell % 0.0 % Normal 0-0 Neutrophils # 3.8 10 Normal 1.5-8.5 Lymph # 0.7 10 Low 1.5-5.0 [place] # 0.5 10 Normal 0.0-0.8 Eos # 0.2 10 Normal 0.0-0.5 Baso # 0.0 10 Normal 0.0-0.2 Laboratory test finding 08/19/2020 [facility] Main Lab [address] [place] [address] [phone] Non Gas Compressor Operator/Cytology Req For Servi (SEE NOTE) 2 Liver Profile 08/18/2020 [facility] nter Main Lab [address] [place] [address] [phone] Ast/Sgot 12 U/L Normal 7-37 Alt/SGPT 21 U/L Normal 12-78 Alkaline Phosphatase 234 U/L High 45-117 Bilirubin,Total 0.7 mg/dL Normal 0.2-1.0 Bilirubin,Direct 0.2 mg/dL Normal 0.0-0.2 Total Protein 7.5 GM/DL Normal 6.4-8.2 Albumin 3.8 GM/DL Normal 3.2-5.2 Albumin/Globulin Ratio 1.0 Low 1.2-2.2 CBC With Differential 08/18/2020 [facility] Main Lab [address] [place] [phone] White Blood Count 7.1 10 Normal 4.0-10.0 Red Blood Count 5.23 10 Normal 4.00-5.40 Hemoglobin 14.1 g/dL Normal 12.0-15.5 Hematocrit 44.1 % Normal 36.0-47.0 Mean Corpuscular Volume 84.3 fl Normal 80.0-96.0 Mean Corpuscular Hemoglobin 27.0 pg Normal 27.0-33.0 Mean Corpuscular HGB Conc 32.0 g/dL Normal 32.0-36.5 Red Cell Distribution Width 12.6 % Normal 11.5-14.5 Platelet Count, Automated 280 10 Normal 150-450 Neutrophils % 77.7 % High 36.0-66.0 Lymph % 10.6 % Low 24.0-44.0 [place] % 7.7 % Normal 2.0-8.0 Eos % 2.7 % Normal 0.0-3.0 Baso % 0.7 % Normal 0.0-1.0 Immature Granulocyte % 0.6 % Normal 0-3.0 Nucleated Red Blood Cell % 0.0 % Normal 0-0 Neutrophils # 5.6 10 Normal 1.5-8.5 Lymph # 0.8 10 Low 1.5-5.0 [place] # 0.6 10 Normal 0.0-0.8 Eos # 0.2 10 Normal 0.0-0.5 Baso # 0.1 10 Normal 0.0-0.2 PT & Aptt 08/18/2020 [facility] nter Main Lab [address] [place] [phone] Prothrombin Time 12.7 seconds Normal 12.5-14.3 Inr 0.93 Normal 3 Partial Thromboplastin Time 37.4 seconds Normal 24.2-38.5 BUN & Creatinine ([facility]) 08/18/2020 [facility] Main Lab [address] [place] [address] [phone] Blood Urea Nitrogen 12 mg/dL Normal 7-18 4 Creatinine With GFR 08/18/2020 [facility] nter Main Lab [address] [place] [address] [phone] Creatinine For GFR 0.77 mg/dL Normal 0.55-1.30 Glomerular Filtration Rate > 60.0 Normal >60 5 1 note:<nlbl:demographic_[facility] ed> 2 SPECIMEN: Common bile duct brushing Apex in vial received SPECIMEN ADEQUACY: Satisfactory for evaluation CATEGORIZATION: No Malignancy identified DESCRIPTIONS: Reactive ductal cells noted. COMMENTS: 08/22/2020 - 742 Signed COLEEN BRAVO(ASCP) 08/22/2020 0743 (Prelim) Signed LEAH JIMENEZ MD 08/22/2020 0911 3 THERAPUTIC HUMAN INR VALUES INDICATIONS NORMAL RANGES PROPHYLAXIS/TREATMENT OF: VENOUS THROMBOSIS 2.0-3.0 PULMONARY EMBOLISM 2.0-3.0 PREVENTION OF SYSTEMIC EMBOLISM FROM: TISSUE HEART VALVES 2.0-3.0 ACUTE MYOCARDIAL INFARCTION 2.0-3.0 VALVULAR HEART DISEASE 2.0-3.0 ATRIAL FIBRILLATION 2.0-3.0 MECHANICAL VALVES(HIGH RISK) 2.5-3.5 RECURRENT MYOCARDIAL INFARCTION 2.5-3.5 4 note:<nlbl:demographic_[facility] ed> 5 Units are mL/min/1.73 m2 Chronic Kidney Disease Staging per NKF: Stage I & II GFR >=60 Normal to Mildly Decreased Stage III GFR 30-59 Moderately Decreased Stage IV GFR 15-29 Severely Decreased Stage V GFR <15 Very Little GFR Left ESRD GFR <15 on ELECTRONIC [employer] LIBRARIAN Procedures Date Code Description Status 11/25/2020 39126 Office/Outpatient Established Mo d MDM 30-39 Min Completed 11/10/2020 58409 Plethysmography Determination Maura ng Volumes & Per Airway Resist Completed 11/10/2020 60160 Spirometry Completed 10/06/2020 81772 Office/Outpatient Established Mo d MDM 30-39 Min Completed 08/19/2020 64678 X-Ray For Bile Duct Endoscopy Co mpleted 08/19/2020 54663 Ercp Removal & Exchange Stents B iliary/Pancreatic Duct Completed 08/19/2020 52866 Ercp For Removal Stone(S) Biliar y/Pancreatic Ducts Completed 06/23/2020 35210 X-Ray For Bile Duct Endoscopy Co mpleted 06/23/2020 94054 Ercp Removal & Exchange Stents B iliary/Pancreatic Duct Completed 06/23/2020 06612 Ercp For Removal Stone(S) Biliar y/Pancreatic Ducts Completed 06/16/2020 33198 Office/Outpatient New Moderate M DM 45-59 Minutes Completed 06/13/2020 41340 Office/Outpatient Established Mo d MDM 30-39 Min Completed 06/13/2020 17712 Diffusing Capacity Completed 06/13/2020 41371 Plethysmography Determination Maura ng Volumes & Per Airway Resist Completed 06/13/2020 43318 Bronchospasm Evaluation Complete d Medical Devices Description No Information Available Encounters Type Date Location Provider Dx Diagnosis Office Visit 11/25/2020 9:30a [facility] Pulmonary/Thoracic Michelle Bautista M.D. 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 cassie Dial M.D. K80.51 Calculus of bile duct w/o ch olangitis or cholecyst w obst T85.590A [facility] compl of bile duct pros thesis, initial encounter Office Visit 06/16/2020 8:30a [facility] ENT Practice Godfrey smith M.D. K80.71 Calculus of GB and bile duct w/o cholecy st w obstruction R94.5 Abnormal results of liver fu nction studies Office Visit 06/13/2020 11:00a [facility] Pulmonary/Thoracic Michelle Bautista M.D. 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 11/25/2020 R91.8 Other nonspecific abnormal findi ng of lung field Michelle Miller M.D. 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 08/19/2020 R93.2 Abnormal findings on diagnostic imaging of liver and biliary tract Godfrey Dial M.D. 08/19/2020 Z46.59 Encounter for fittin g and adjustment of other gastrointestinal appliance and device Godfrey Dial M.D. 08/19/2020 Z96.89 Presence of other specified func tional implants Godfrey Dial M.D. 08/19/2020 K80.51 Calculus of bile stephen t without cholangitis or cholecystitis with obstruction Godfrey Dial M.D. 06/23/2020 T85.590A Other mechanical com plication of bile duct prosthesis, initial encounter Godfrey Dial M.D. 06/23/2020 K80.51 Calculus of bile stephen t without cholangitis or cholecystitis with obstruction Godfrey Dial M.D. 06/23/2020 Z46.59 Encounter for fittin g and adjustment of other gastrointestinal appliance and device Godfrey Dial M.D. 06/16/2020 K80.71 Calculus of gallblad kurt and bile duct without cholecystitis with obstruction Godfrey Dial M.D. 06/16/2020 R94.5 Abnormal results of liver functi on studies Godfrey Dial M.D. 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 06/13/2020 K80.71 Calculus of gallblad kurt and bile duct without cholecystitis with obstruction Michelle Miller M.D. 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 Plan of Treatment Future Appointment(s):* 12/13/2020 2:00 am - Godfrey Dial M.D. at [facility] Gastro[facility]ology [facility] * 12/07/2021 9:00 am - Michelle Miller M.D. 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
--- OUTSIDE RECORDS SUMMARY | 2020-12-23 18:53 | CCD | Continuity of Care Document ---
Author Author [facility], [place] Organization Unknown Address [address] [place] [address] Phone [phone] Care Team Providers Care Api Product Manager Name Role Phone Evangelina Glass D.O. AUTM [phone] Gregorio Mathews M.D. AUTM [phone] Problems Description No Information Available Social History Type Date Description Comments Sex Unknown Tobacco Use Start: Unknown Never Smoked Cigarettes ETOH Use Denies alcohol use Recreational Drug Use Denies Drug Use Tobacco Use Start: Unknown Patient has never smoked Smoking Status Reviewed: 06/13/20 Patient has never smoked Allergies, Adverse Reactions, Alerts Description No Known Drug Allergies Medications Active Medications SIG Qnty Indications Ordering Provide r Date Cipro 500mg Tablets take one tablet every 12 hours. for total of 5 days. 10tabs Godfrey booker M.D. 06/23/2020 Ursodiol 300mg Capsules 1 cap by mouth [...] 1tab po qam Unknown Azelastine HCL (Nasal) 137mcg/[place] Solution prn Unknown Systane Preservative Free 0.4-0.3% Solution 1 drop each eye every morning Unknown Keppra 750mg Tablets 1tab po qhs Unknown Systene Balance Dry Eye Relief qid Unkno wn Immunizations CPT Code Status Date Vaccine Lot # [id number] Given 12/17/2018 Afluria, Quadrivalent, 0.5ml , [facility]# 35354-151-43 Vital Signs Date Vital Result Comment 10/06/2020 12:41pm Height 67 inches 5'7" Weight 185.00 lb BMI (Body Mass Index) 29.0 kg/m2 [place] Body Weight 135 lb Weight 83.916 kg BSA (Body Surface Area) 1.96 m2 06/16/2020 8:46am BP Systolic 122 mmHg BP Diastolic 68 mmHg Height 67 inches 5'7" Weight 194.00 lb BMI (Body Mass Index) 30.4 kg/m2 [place] Body Weight 135 lb Weight 87.998 kg BSA (Body Surface Area) 2.00 m2 Results Test Acquired Date Facility Test Result H/L Range Note Liver Profile 09/19/2020 [facility] Main Lab [address] [place] [address] [id number] [phone] Ast/Sgot 15 U/L Normal 7-37 Alt/SGPT 22 U/L Normal 12-78 Alkaline Phosphatase 183 U/L High 45-117 Bilirubin,Total 0.6 mg/dL Normal 0.2-1.0 Bilirubin,Direct 0.2 mg/dL Normal 0.0-0.2 Total Protein 6.8 GM/DL Normal 6.4-8.2 Albumin 3.5 GM/DL Normal 3.2-5.2 Albumin/Globulin Ratio 1.1 Low 1.2-2.2 Laboratory test finding 09/19/2020 [facility] Main Lab [address] [place] [address] [phone] Gamma Glutamyltranspeptidase 73 U/L High 5-5 5 1 CBC With Differential 09/19/2020 [facility] Main Lab [address] [place] [address] [phone] White Blood Count 5.2 10 Normal 4.0-10.0 [...] 36.0-66.0 Lymph % 12.9 % Low 24.0-44.0 [place] % 8.7 % High 2.0-8.0 Eos % 3.3 % High 0.0-3.0 Baso % 0.8 % Normal 0.0-1.0 Immature Granulocyte % 0.6 % Normal 0-3.0 Nucleated Red Blood Cell % 0.0 % Normal 0-0 Neutrophils # 3.8 10 Normal 1.5-8.5 Lymph # 0.7 10 Low 1.5-5.0 [place] # 0.5 10 Normal 0.0-0.8 Eos # 0.2 10 Normal 0.0-0.5 Baso # 0.0 10 Normal 0.0-0.2 Laboratory test finding 08/19/2020 [facility] Main Lab [address] [place] [address] [phone] Non Side Trimmer/Cytology Req For Servi (SEE NOTE) 2 Liver Profile 08/18/2020 [facility] nter Main Lab [address] [place] [address] [phone] Ast/Sgot 12 U/L Normal 7-37 Alt/SGPT 21 U/L Normal 12-78 Alkaline Phosphatase 234 U/L High 45-117 Bilirubin,Total 0.7 mg/dL Normal 0.2-1.0 Bilirubin,Direct 0.2 mg/dL Normal 0.0-0.2 Total Protein 7.5 GM/DL Normal 6.4-8.2 Albumin 3.8 GM/DL Normal 3.2-5.2 Albumin/Globulin Ratio 1.0 Low 1.2-2.2 CBC With Differential 08/18/2020 [facility] Main Lab [address] [place] [address] [phone] White Blood Count 7.1 10 Normal 4.0-10.0 [...] 36.0-66.0 Lymph % 10.6 % Low 24.0-44.0 [place] % 7.7 % Normal 2.0-8.0 Eos % 2.7 % Normal 0.0-3.0 Baso % 0.7 % Normal 0.0-1.0 Immature Granulocyte % 0.6 % Normal 0-3.0 Nucleated Red Blood Cell % 0.0 % Normal 0-0 Neutrophils # 5.6 10 Normal 1.5-8.5 Lymph # 0.8 10 Low 1.5-5.0 [place] # 0.6 10 Normal 0.0-0.8 Eos # 0.2 10 Normal 0.0-0.5 Baso # 0.1 10 Normal 0.0-0.2 PT & Aptt 08/18/2020 [facility] nter Main Lab [address] [place] [address] [phone] Prothrombin Time 12.7 seconds Normal 12.5-14.3 Inr 0.93 Normal 3 Partial Thromboplastin Time 37.4 seconds Normal 24.2-38.5 BUN & Creatinine ([facility]) 08/18/2020 [facility] Main Lab [address] [place] [address] [phone] Blood Urea Nitrogen 12 mg/dL Normal 7-18 4 Creatinine With GFR 08/18/2020 [facility] nter Main Lab [address] [place] [address] [phone] Creatinine For GFR 0.77 mg/dL Normal 0.55-1.30 Glomerular Filtration Rate > 60.0 Normal >60 5 1 note:<nlbl:demographic_[facility] ed> 2 SPECIMEN: Common bile duct brushing [place] in vial received SPECIMEN ADEQUACY: Satisfactory for [...] RISK) 2.5-3.5 RECURRENT MYOCARDIAL INFARCTION 2.5-3.5 4 note:<nlbl:demographic_[facility] ed> 5 Units are mL/min/1.73 m2 Chronic Kidney Disease Staging per NKF: Stage I & II GFR >=60 Normal to Mildly Decreased Stage III GFR 30-59 Moderately Decreased Stage IV GFR 15-29 Severely Decreased Stage V GFR <15 Very Little GFR Left ESRD GFR <15 on ORDNANCE TECHNICIAN Procedures Date Code Description Status 10/06/2020 43737 Office/Outpatient Established Mo d MDM 30-39 Min Completed 08/19/2020 49676 X-Ray For Bile Duct Endoscopy Co mpleted 08/19/2020 48825 Ercp Removal & Exchange Stents B iliary/Pancreatic Duct Completed 08/19/2020 06962 Ercp For Removal Stone(S) Biliar y/Pancreatic Ducts Completed 06/23/2020 00185 X-Ray For Bile Duct Endoscopy Co mpleted 06/23/2020 74054 Ercp Removal & Exchange Stents B iliary/Pancreatic Duct Completed 06/23/2020 43233 Ercp For Removal Stone(S) Biliar y/Pancreatic Ducts Completed 06/16/2020 18275 Office/Outpatient New Moderate M DM 45-59 Minutes Completed 06/13/2020 00919 Office/Outpatient Established Mo d MDM 30-39 Min Completed 06/13/2020 62943 Diffusing Capacity Completed 06/13/2020 21355 Plethysmography Determination Maura ng Volumes & Per Airway Resist Completed 06/13/2020 34425 Bronchospasm Evaluation Complete d Medical Devices Description No Information Available Encounters Type Date Location Provider Dx Diagnosis Office Visit 10/06/2020 11:40a [facility] Pra ctice Godfrey Dial M.D. K80.51 Calculus of bile duct w/o ch olangitis or cholecyst w obst T[facility].590[facility] initial encounter Office Visit 06/16/2020 8:30a [facility] E[facility] Godfrey smith M.D. K80.71 Calculus of GB and bile duct w/o cholecy st w obstruction R94.5 Abnormal results of liver fu nction studies Office Visit 06/13/2020 11:00a [facility] Pulmonary/Thoracic Michelle Bautista M.D. 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 Plan of Treatment Future Appointment(s):* 11/15/2020 8:30 am - Michelle Pretty M.D. at [facility] Pulmonary/Thoracic 10/06/2020 - Godfrey Dial M.D.* K80.51 Calculus of bile duct without cholangitis or cholecystitis with obstruction * T85.590A Other mechanical complication of bile duct prosthesis, initial encounter * * Comments:* Impression:-- Abnormal Liver chemistries, with prior known h/o CBC plastic stent placement in 2018, and h/o cholecystectomy in May 2019, and symptoms of mild right upper quadrant discomfort. -- Likely cholestasis from CBD stone/ debris and occluded stent. * Recommendations:* -- Patient is educated about the prior test results, including the procedure results and pathology results. All questions were answered. -- Also educated on all possible differential diagnoses in detail. -- Will obtain interval Abdominal x-ray to evaluate the present of the CBD stent. -- Based on the above, will schedule for repeat ERCP and CBD evaluation and CBD stent removal. -- The procedure, indications, risks (including but not limited to acute pancreatitis and its complications, bleeding, perforation, infection, hypotension, respiratory depression, allergy, need for prolonged endotracheal intubation, surgery, or even ), benefits, limitations (e.g., missing a lesion), and all other alternatives (including no intervention) were explained to the patient who understood and agreed for the procedure. -- Return to GI clinic 2 weeks after above tests -- Follow up with PMD for routine medical Care and other age appropriate health maintenance. Functional Status Description No Information Available Mental Status Mental Condition Comment Date Status Cognitive ability impaired Activ e Referrals Description No Information Available
--- OUTSIDE RECORDS SUMMARY | 2020-12-23 18:53 | CCD | Continuity of Care Document ---
Author Author [facility] Organization Unknown Address [address], [address] [place] [address] Phone [phone] Care Team Providers Care Lumber Straightener Name Role Phone Evangelina Glass D.O. AUTM Gregorio Mathews M.D. AUTM [phone] Problems Description No Information Available Social [...] course of 4 weeks) 60caps K80.71 Godfrey Sandoval M.D. 06/23/2020 Abilify 10mg Tablets 1tab po [...] 1tab po qam Unknown Azelastine HCL (Nasal) 137mcg/[place] Solution prn Unknown Systane Preservative Free 0.4-0.3% Solution 1 drop each eye every morning Unknown Keppra 750mg Tablets 1tab po qhs Unknown Systene Balance Dry Eye Relief qid Unkno wn Immunizations CPT Code Status Date Vaccine Lot # [id number] Given 12/17/2018 Afluria, Quadrivalent, 0.5ml , [facility]# [id number] Vital Signs Date Vital Result Comment 10/06/2020 12:41pm Height 67 inches 5'7" Weight 185.00 lb BMI (Body Mass Index) 29.0 kg/m2 [place] Body Weight 135 lb Weight 83.916 kg BSA (Body Surface Area) 1.96 m2 06/16/2020 8:46am BP Systolic 122 mmHg BP Diastolic 68 mmHg Height 67 inches 5'7" Weight 194.00 lb BMI (Body Mass Index) 30.4 kg/m2 [place] Body Weight 135 lb Weight 87.998 kg BSA (Body Surface Area) 2.00 m2 Results Test Acquired Date Facility Test Result H/L Range Note Liver Profile 09/19/2020 [facility] Main Lab [address] [place] [address] [id number] [phone] Ast/Sgot 15 U/L Normal 7-37 Alt/SGPT 22 U/L Normal 12-78 Alkaline Phosphatase 183 U/L High 45-117 Bilirubin,Total 0.6 mg/dL Normal 0.2-1.0 Bilirubin,Direct 0.2 mg/dL Normal 0.0-0.2 Total Protein 6.8 GM/DL Normal 6.4-8.2 Albumin 3.5 GM/DL Normal 3.2-5.2 Albumin/Globulin Ratio 1.1 Low 1.2-2.2 Laboratory test finding 09/19/2020 [facility] Main Lab [address] [place] [address] [phone] Gamma Glutamyltranspeptidase 73 U/L High 5-5 5 1 CBC With Differential 09/19/2020 [facility] Main Lab [address] [place] [address] [phone] White Blood Count 5.2 10 Normal 4.0-10.0 [...] 36.0-66.0 Lymph % 12.9 % Low 24.0-44.0 [place] % 8.7 % High 2.0-8.0 Eos % 3.3 % High 0.0-3.0 Baso % 0.8 % Normal 0.0-1.0 Immature Granulocyte % 0.6 % Normal 0-3.0 Nucleated Red Blood Cell % 0.0 % Normal 0-0 Neutrophils # 3.8 10 Normal 1.5-8.5 Lymph # 0.7 10 Low 1.5-5.0 [place] # 0.5 10 Normal 0.0-0.8 Eos # 0.2 10 Normal 0.0-0.5 Baso # 0.0 10 Normal 0.0-0.2 Laboratory test finding 08/19/2020 [facility] Main Lab [address] [place] [address] [phone] Non Vp Of Product/Cytology Req For Servi (SEE NOTE) 2 Liver Profile 08/18/2020 [facility] nter Main Lab [address] [place] [address] [phone] Ast/Sgot 12 U/L Normal 7-37 Alt/SGPT 21 U/L Normal 12-78 Alkaline Phosphatase 234 U/L High 45-117 Bilirubin,Total 0.7 mg/dL Normal 0.2-1.0 Bilirubin,Direct 0.2 mg/dL Normal 0.0-0.2 Total Protein 7.5 GM/DL Normal 6.4-8.2 Albumin 3.8 GM/DL Normal 3.2-5.2 Albumin/Globulin Ratio 1.0 Low 1.2-2.2 CBC With Differential 08/18/2020 [facility] Main Lab [address] [place] [address] [phone] White Blood Count 7.1 10 Normal 4.0-10.0 [...] 36.0-66.0 Lymph % 10.6 % Low 24.0-44.0 [place] % 7.7 % Normal 2.0-8.0 Eos % 2.7 % Normal 0.0-3.0 Baso % 0.7 % Normal 0.0-1.0 Immature Granulocyte % 0.6 % Normal 0-3.0 Nucleated Red Blood Cell % 0.0 % Normal 0-0 Neutrophils # 5.6 10 Normal 1.5-8.5 Lymph # 0.8 10 Low 1.5-5.0 [place] # 0.6 10 Normal 0.0-0.8 Eos # 0.2 10 Normal 0.0-0.5 Baso # 0.1 10 Normal 0.0-0.2 PT & Aptt 08/18/2020 [facility] nter Main Lab [address] [place] [address] [phone] Prothrombin Time 12.7 seconds Normal 12.5-14.3 Inr 0.93 Normal 3 Partial Thromboplastin Time 37.4 seconds Normal 24.2-38.5 BUN & Creatinine ([facility]) 08/18/2020 [facility] Main Lab [address] [place], [place] [id number] [phone] Blood Urea Nitrogen 12 mg/dL Normal 7-18 4 Creatinine With GFR 08/18/2020 [facility] nter Main Lab [address] [place] [address] [phone] Creatinine For GFR 0.77 mg/dL Normal 0.55-1.30 Glomerular Filtration Rate > 60.0 Normal >60 5 1 note:<nlbl:demographic_[facility] ed> 2 SPECIMEN: Common bile duct brushing [place] in vial received SPECIMEN ADEQUACY: Satisfactory for evaluation CATEGORIZATION: No Malignancy identified DESCRIPTIONS: Reactive ductal cells noted. COMMENTS: 08/22/2020742 Signed COLEEN BRAVO(ASCP) 08/22/2020 0743 (Prelim) Signed LEAH JIMENEZ MD 08/22/2020 0911 3 THERAPUTIC HUMAN INR VALUES INDICATIONS NORMAL RANGES PROPHYLAXIS/TREATMENT OF: VENOUS THROMBOSIS 2.0-3.0 PULMONARY EMBOLISM 2.0-3.0 PREVENTION OF SYSTEMIC EMBOLISM FROM: TISSUE HEART VALVES 2.0-3.0 ACUTE MYOCARDIAL INFARCTION 2.0-3.0 VALVULAR HEART DISEASE 2.0-3.0 ATRIAL FIBRILLATION 2.0-3.0 MECHANICAL VALVES(HIGH RISK) 2.5-3.5 RECURRENT MYOCARDIAL INFARCTION 2.5-3.5 4 note:<nlbl:demographic_[facility] ed> 5 Units are mL/min/1.73 m2 Chronic Kidney Disease Staging per NKF: Stage I & II GFR >=60 Normal to Mildly Decreased Stage III GFR 30-59 Moderately Decreased Stage IV GFR 15-29 Severely Decreased Stage V GFR <15 Very Little GFR Left ESRD GFR <15 on EXTERIOR DESIGNER Procedures Date Code Description Status 10/06/2020 62063 Office/Outpatient Established Mo d MDM 30-39 Min Completed 08/19/2020 51255 X-Ray For Bile Duct Endoscopy Co mpleted 08/19/2020 07752 Ercp Removal & Exchange Stents B iliary/Pancreatic Duct Completed 08/19/2020 76104 Ercp For Removal Stone(S) Biliar y/Pancreatic Ducts Completed 06/23/2020 06453 X-Ray For Bile Duct Endoscopy Co mpleted 06/23/2020 36892 Ercp Removal & Exchange Stents B iliary/Pancreatic Duct Completed 06/23/2020 25709 Ercp For Removal Stone(S) Biliar y/Pancreatic Ducts Completed 06/16/2020 45904 Office/Outpatient New Moderate M DM 45-59 Minutes Completed 06/13/2020 38460 Office/Outpatient Established Mo d MDM 30-39 Min Completed 06/13/2020 88518 Diffusing Capacity Completed 06/13/2020 44555 Plethysmography Determination Maura ng Volumes & Per Airway Resist Completed 06/13/2020 54612 Bronchospasm Evaluation Complete d Medical Devices Description No Information Available Encounters Type Date Location Provider Dx Diagnosis Office Visit 10/06/2020 11:40a [facility] Gastroenterology Pra ctice Godfrey Sandoval M.D. K80.51 Calculus of bile duct w/o ch olangitis or cholecyst w obst T85.590A [facility] compl of bile duct pros thesis, initial encounter Office Visit 06/16/2020 8:30a [facility] ENT Practice Godfrey smith M.D. K80.71 Calculus of GB and bile duct w/o cholecy st w obstruction R94.5 Abnormal results of liver fu nction studies Office Visit 06/13/2020 11:00a [facility] Pulmonary/Thoracic Michelle Bautista M.D. 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 08/19/2020 R93.2 Abnormal findings on diagnostic imaging of liver and biliary tract Godfrey Sandoval M.D. 08/19/2020 Z46.59 Encounter for fittin g and adjustment of other gastrointestinal appliance and device Godfrey Sandoval M.D. 08/19/2020 Z96.89 Presence of other specified func tional implants Godfrey Sandoval M.D. 08/19/2020 K80.51 Calculus of bile stephen t without cholangitis or cholecystitis with obstruction Godfrey Sandoval M.D. 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 06/23/2020 K80.51 Calculus of bile stephen t without cholangitis or cholecystitis with obstruction Godfrey Sandoval M.D. 06/23/2020 Z46.59 Encounter for fittin g and adjustment of other gastrointestinal appliance and device Godfrey Sandoval M.D. 06/16/2020 K80.71 Calculus of gallblad kurt and bile duct without cholecystitis with obstruction Godfrey Sandoval M.D. 06/16/2020 R94.5 Abnormal results of liver functi on studies Godfrey Sandoval M.D. 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 06/13/2020 K80.71 Calculus of gallblad kurt and bile duct without cholecystitis with obstruction Michelle Pretty M.D. 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 Plan of Treatment Future Appointment(s):* 11/15/2020 8:30 am - Michelle Pretty M.D. at [facility] Pulmonary/Thoracic * 11/10/2020 9:00 am - Pulmonary Lab at [facility] Pulmonary/Thoracic 10/06/2020 - Godfrey Sandoval M.D.* K80.51 Calculus of bile duct without cholangitis or cholecystitis with obstruction * T85.590A Other mechanical complication of bile duct prosthesis, initial encounter * * New Xrays:* XR Abdomen 2 Views, Ordered: 10/06/20 * Comments:* Impression:-- Abnormal Liver chemistries, with [...]
--- OUTSIDE RECORDS SUMMARY | 2020-12-23 18:53 | CCD | Continuity of Care Document ---
Author Author Odilia JENKINS P.A.-C. Organization Unknown Address [address] [place] [address] Phone [phone] Care Team Providers Care Perinatal Educator Name Role Phone Evangelina Glass M.D. AUTM Problems Active Problems Provider Date Seizure Miladis Dave M.D. Onset: 02/20/2016 Social History Type Date Description Comments Sex Unknown Allergies, Adverse Reactions, Alerts Active Allergies Criticality Reaction | Severity Comments Date Hay Fever Unable to assess criticality 03/08/2014 Trileptal Unable to assess criticality weight gain, mood issues 04/11/2020 Valproic Acid Unable to assess criticality elevated LF T's 04/12/2020 Inactive Allergies NKDA Unable to assess criticality 11/03/2013 Medications Active Medications SIG Qnty Indications Ordering Provide r Date Levetiracetam 500mg Tablets 1 po in am and 1 1/2 po in pm for 7 days then 1 po bid, new directions 63tabs Miladis Dave M.D. 06/09/2020 Lamotrigine 200mg Tablets 1 1/2 tabs po in am and 2 po qhs for 7 days then 2 po bid, new directions 120tabs G40.009 Miladis Dave M.D. 08/17/2019 History Medications Levetiracetam 750mg Tablets take one tablet by mouth twice a day, new dose, discontinue 500 mg 60tabs Miladis Dave M.D. 05/11/2020 - 06/09/2020 Immunizations Description No Information Available Vital Signs Date Vital Result Comment 10/24/2020 7:19am BP Systolic 110 mmHg BP Diastolic 80 mmHg Heart Rate 84 /min Respiratory Rate 16 /min 07/22/2020 7:23am BP Systolic 110 mmHg BP Diastolic 80 mmHg Heart Rate 76 /min Respiratory Rate 16 /min Results Test Acquired Date Facility Test Result H/L Range Note CBC With Differential 11/08/2020 [facility] White Blood Count 8.3 10 Normal 4.0-10.0 Red Blood Count 5.09 10 Normal 4.00-5.40 Hemoglobin 13.7 g/dL Normal 12.0-15.5 Hematocrit 43.1 % Normal 36.0-47.0 Mean Corpuscular Volume 84.7 fl Normal 80.0-96.0 Mean Corpuscular Hemoglobin 26.9 pg Low 27.0-33.0 Mean Corpuscular HGB Conc 31.8 g/dL Low 32.0-36.5 Red Cell Distribution Width 12.8 % Normal 11.5-14.5 Platelet Count, Automated 332 10 Normal 150-450 Neutrophils % 76.8 % High 36.0-66.0 Lymph % 12.4 % Low 24.0-44.0 [place] % 7.8 % Normal 2.0-8.0 Eos % 1.8 % Normal 0.0-3.0 Baso % 0.6 % Normal 0.0-1.0 Immature Granulocyte % 0.6 % Normal 0-3.0 Nucleated Red Blood Cell % 0.0 % Normal 0-0 Neutrophils # 6.3 10 Normal 1.5-8.5 Lymph # 1.0 10 Low 1.5-5.0 [facility] # 0.6 10 Normal 0.0-0.8 Eos # 0.2 10 Normal 0.0-0.5 Baso # 0.1 10 Normal 0.0-0.2 Comprehensive Metabolic Profil 11/08/2020 [facility] Glucose, Fasting 69 mg/dL Low 70-100 Blood Urea Nitrogen 13 mg/dL Normal 7-18 Creatinine For GFR 0.80 mg/dL Normal 0.55-1.30 Glomerular Filtration Rate > 60.0 Normal >60 1 Sodium Level 139 mEq/L Normal 136-145 Potassium Serum 5.0 mEq/L Normal 3.5-5.1 Chloride Level 106 mEq/L Normal 98-107 Carbon Dioxide Level 28 mEq/L Normal 21-32 Anion Gap 5 mEq/L Low 8-16 Calcium Level 9.7 mg/dL Normal 8.5-10.1 Ast/Sgot 15 U/L Normal 7-37 Alt/SGPT 26 U/L Normal 12-78 Alkaline Phosphatase 206 U/L High 45-117 Bilirubin,Total 0.4 mg/dL Normal 0.2-1.0 Total Protein 7.3 GM/DL Normal 6.4-8.2 Albumin 3.8 GM/DL Normal 3.2-5.2 Albumin/Globulin Ratio 1.1 Low 1.2-2.2 CBC With Differential 08/18/2020 [facility] White Blood Count 7.1 10 Normal 4.0-10.0 Red Blood Count 5.12 10 Normal 4.00-5.40 Hemoglobin 13.6 g/dL Normal 12.0-15.5 Hematocrit 42.9 % Normal 36.0-47.0 Mean Corpuscular Volume 83.8 fl Normal 80.0-96.0 Mean Corpuscular Hemoglobin 26.6 pg Low 27.0-33.0 Mean Corpuscular HGB Conc 31.7 g/dL Low 32.0-36.5 Red Cell Distribution Width 12.6 % Normal 11.5-14.5 Platelet Count, Automated 289 10 Normal 150-450 Neutrophils % 79.0 % High 36.0-66.0 Lymph % 10.1 % Low 24.0-44.0 Roosevelt % 6.8 % Normal 2.0-8.0 Eos % 2.5 % Normal 0.0-3.0 Baso % 0.8 % Normal 0.0-1.0 Immature Granulocyte % 0.8 % Normal 0-3.0 Nucleated Red Blood Cell % 0.0 % Normal 0-0 Neutrophils # 5.6 10 Normal 1.5-8.5 Lymph # 0.7 10 Low 1.5-5.0 Roosevelt # 0.5 10 Normal 0.0-0.8 Eos # 0.2 10 Normal 0.0-0.5 Baso # 0.1 10 Normal 0.0-0.2 Comprehensive Metabolic Profil 08/18/2020 [facility] Glucose, Fasting 72 mg/dL Normal 70-100 Blood Urea Nitrogen 11 mg/dL Normal 7-18 Creatinine For GFR 0.78 mg/dL Normal 0.55-1.30 Glomerular Filtration Rate > 60.0 Normal >60 2 Sodium Level 141 mEq/L Normal 136-145 Potassium Serum 4.8 mEq/L Normal 3.5-5.1 Chloride Level 106 mEq/L Normal 98-107 Carbon Dioxide Level 31 mEq/L Normal 21-32 Anion Gap 4 mEq/L Low 8-16 Calcium Level 9.7 mg/dL Normal 8.5-10.1 Ast/Sgot 11 U/L Normal 7-37 Alt/SGPT 22 U/L Normal 12-78 Alkaline Phosphatase 236 U/L High 45-117 Bilirubin,Total 0.7 mg/dL Normal 0.2-1.0 Total Protein 7.4 GM/DL Normal 6.4-8.2 Albumin 3.7 GM/DL Normal 3.2-5.2 Albumin/Globulin Ratio 1.0 Low 1.2-2.2 Laboratory test finding 08/18/2020 [facility] Levetiracetam (Keppra) 20.9 ug/mL Normal 10.0-40.0 3 Lamotrigine (Lamictal) 13.1 ug/mL Normal 2.0-20.0 4 CBC With Differential 06/29/2020 [facility] White Blood Count 7.3 10 Normal 4.0-10.0 Red Blood Count 4.84 10 Normal 4.00-5.40 Hemoglobin 13.6 g/dL Normal 12.0-15.5 Hematocrit 42.2 % Normal 36.0-47.0 Mean Corpuscular Volume 87.2 fl Normal 80.0-96.0 Mean Corpuscular Hemoglobin 28.1 pg Normal 27.0-33.0 Mean Corpuscular HGB Conc 32.2 g/dL Normal 32.0-36.5 Red Cell Distribution Width 12.0 % Normal 11.5-14.5 Platelet Count, Automated 278 10 Normal 150-450 Neutrophils % 78.1 % High 36.0-66.0 Lymph % 9.3 % Low 24.0-44.0 Roosevelt % 7.8 % Normal 2.0-8.0 Eos % 3.3 % High 0.0-3.0 Baso % 0.7 % Normal 0.0-1.0 Immature Granulocyte % 0.8 % Normal 0-3.0 Nucleated Red Blood Cell % 0.0 % Normal 0-0 Neutrophils # 5.7 10 Normal 1.5-8.5 Lymph # 0.7 10 Low 1.5-5.0 Roosevelt # 0.6 10 Normal 0.0-0.8 Eos # 0.2 10 Normal 0.0-0.5 Baso # 0.1 10 Normal 0.0-0.2 Comprehensive Metabolic Profil 06/29/2020 [facility] Glucose, Fasting 92 mg/dL Normal 70-100 Blood Urea Nitrogen 14 mg/dL Normal 7-18 Creatinine For GFR 0.74 mg/dL Normal 0.55-1.30 Glomerular Filtration Rate > 60.0 Normal >60 5 Sodium Level 141 mEq/L Normal 136-145 Potassium Serum 4.1 mEq/L Normal 3.5-5.1 Chloride Level 107 mEq/L Normal 98-107 Carbon Dioxide Level 28 mEq/L Normal 21-32 Anion Gap 6 mEq/L Low 8-16 Calcium Level 9.3 mg/dL Normal 8.5-10.1 Ast/Sgot 11 U/L Normal 7-37 Alt/SGPT 19 U/L Normal 12-78 Alkaline Phosphatase 286 U/L High 45-117 Bilirubin,Total 0.4 mg/dL Normal 0.2-1.0 Total Protein 7.4 GM/DL Normal 6.4-8.2 Albumin 3.5 GM/DL Normal 3.2-5.2 Albumin/Globulin Ratio 0.9 Low 1.2-2.2 Laboratory test finding 06/29/2020 [facility] Levetiracetam (Keppra) 16.2 ug/mL Normal 10.0-40.0 6 Lamotrigine (Lamictal) 10.1 ug/mL Normal 2.0-20.0 7 CBC With Differential 05/31/2020 [facility] White Blood Count 6.2 10 Normal 4.0-10.0 Red Blood Count 4.70 10 Normal 4.00-5.40 Hemoglobin 13.2 g/dL Normal 12.0-15.5 Hematocrit 40.9 % Normal 36.0-47.0 Mean Corpuscular Volume 87.0 fl Normal 80.0-96.0 Mean Corpuscular Hemoglobin 28.1 pg Normal 27.0-33.0 Mean Corpuscular HGB Conc 32.3 g/dL Normal 32.0-36.5 Red Cell Distribution Width 12.6 % Normal 11.5-14.5 Platelet Count, Automated 241 10 Normal 150-450 Neutrophils % 73.1 % High 36.0-66.0 Lymph % 12.1 % Low 24.0-44.0 Roosevelt % 9.2 % High 2.0-8.0 Eos % 3.4 % High 0.0-3.0 Baso % 0.6 % Normal 0.0-1.0 Immature Granulocyte % 1.6 % Normal 0-3.0 Nucleated Red Blood Cell % 0.0 % Normal 0-0 Neutrophils # 4.6 10 Normal 1.5-8.5 Lymph # 0.8 10 Low 1.5-5.0 Roosevelt # 0.6 10 Normal 0.0-0.8 Eos # 0.2 10 Normal 0.0-0.5 Baso # 0.0 10 Normal 0.0-0.2 Comprehensive Metabolic Profil 05/31/2020 [facility] Glucose, Fasting 100 mg/dL Normal 70-100 Blood Urea Nitrogen 10 mg/dL Normal 7-18 Creatinine For GFR 0.69 mg/dL Normal 0.55-1.30 Glomerular Filtration Rate > 60.0 Normal >60 8 Sodium Level 141 mEq/L Normal 136-145 Potassium Serum 3.9 mEq/L Normal 3.5-5.1 Chloride Level 107 mEq/L Normal 98-107 Carbon Dioxide Level 31 mEq/L Normal 21-32 Anion Gap 3 mEq/L Low 8-16 Calcium Level 9.0 mg/dL Normal 8.5-10.1 Ast/Sgot 54 U/L High 7-37 Alt/SGPT 93 U/L High 12-78 Alkaline Phosphatase 343 U/L High 45-117 Bilirubin,Total 0.4 mg/dL Normal 0.2-1.0 Total Protein 6.6 GM/DL Normal 6.4-8.2 Albumin 3.1 GM/DL Low 3.2-5.2 Albumin/Globulin Ratio 0.9 Low 1.2-2.2 Laboratory test finding 05/31/2020 [facility] Levetiracetam (Keppra) 32.1 ug/mL Normal 10.0-40.0 9 Lamotrigine (Lamictal) 10.1 ug/mL Normal 2.0-20.0 10 1 Units are mL/min/1.73 m2 Chronic Kidney Disease Staging per NKF: Stage I & II GFR >=60 Normal to Mildly Decreased Stage III GFR 30-59 Moderately Decreased Stage IV GFR 15-29 Severely Decreased Stage V GFR <15 Very Little GFR Left ESRD GFR <15 on [employer]RE PROTECTION INSPECTOR 2 Units are mL/min/1.73 m2 Chronic Kidney Disease Staging per NKF: Stage I & II GFR >=60 Normal to Mildly Decreased Stage III GFR 30-59 Moderately Decreased Stage IV GFR 15-29 Severely Decreased Stage V GFR <15 Very Little GFR Left ESRD GFR <15 on FIRE PROTECTION INSPECTOR 3 This test was developed and its performance characteristics determined by [employer]. It has not been cleared or approved by the Food and Drug Administration. 4 Detection Limit = 1.0 Performed at: [facility] [id number] Call Center Receptionist: Maida Weber MD, Phone: [phone] 5 Units are mL/min/1.73 m2 Chronic Kidney Disease Staging per NKF: Stage I & II GFR >=60 Normal to Mildly Decreased Stage III GFR 30-59 Moderately Decreased Stage IV GFR 15-29 Severely Decreased Stage V GFR <15 Very Little GFR Left ESRD GFR <15 on FIRE PROTECTION INSPECTOR 6 This test was developed and its performance characteristics determined by [employer]. It has not been cleared or approved by the Food and Drug Administration. 7 Testing on this sample was p erformed by homogeneous enzyme immunoassay. Detection Limit = 1.0 Performed at: [facility] [id number] Call Center Receptionist: Maida Weber MD, Phone: [phone] Performed at: [facility] [address] [place] [id number] Call Center Receptionist: Nilam Mendoza [facility], Phone: [phone] 8 Units are mL/min/1.73 m2 Chronic Kidney Disease Staging per NKF: Stage I & II GFR >=60 Normal to Mildly Decreased Stage III GFR 30-59 Moderately Decreased Stage IV GFR 15-29 Severely Decreased Stage V GFR <15 Very Little GFR Left ESRD GFR <15 on FIRE PROTECTION INSPECTOR 9 This test was developed and its performance characteristics determined by [employer]. It has not been cleared or approved by the Food and Drug Administration. 10 Testing on this sample was p erformed by homogeneous enzyme immunoassay. Detection Limit = 1.0 Performed at: [facility] [id number] Call Center Receptionist: Maida Weber MD, Phone: [phone] Performed at: [facility] [address] [place] [id number] Call Center Receptionist: Nilam Mendoza [facility], Phone: [phone] Procedures Date Code Description Status 10/24/2020 05607 Office/Outpatient Established Mo d MDM 30-39 Min Completed 07/22/2020 36090 Office/Outpatient Established Mo d MDM 30-39 Min Completed Medical Devices Description No Information Available Encounters Type Date Location Provider Dx Diagnosis Office Visit 10/24/2020 10:45a Main office - [place] Julio Nolen.A.-C. G40.009 Local-rel idio epi w seiz of loc onst,no t ntrct,w/o stat epi R42 Dizziness and giddiness G44.219 Episodic tension-type headac he, not intractable R94.5 Abnormal results of liver fu nction studies Office Visit 07/22/2020 8:00a Main office - [place] Aaron NolenA.-C. G40.009 Local-rel idio epi w seiz of loc onst,no t ntrct,w/o stat epi G44.219 Episodic tension-type headac he, not intractable R42 Dizziness and giddiness R94.5 Abnormal results of liver fu nction studies Assessments Date Code Description Provider 10/24/2020 G40.009 Localization-related (focal) (pa rtial) idiopathic epilepsy a Meli Jenkins P.A.-C. 10/24/2020 R42 Dizziness and giddiness Meli Jenkins P.A.-C. 10/24/2020 G44.219 Episodic tension-type headache, not intractable Meli Jenkins P.A.-C. 10/24/2020 R94.5 Abnormal results of liver functi on studies Meli Jenkins P.A.-C. 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 07/22/2020 G44.219 Episodic tension-type headache, not intractable Meli Jenkins P.A.-C. 07/22/2020 R42 Dizziness and giddiness Meli Jenkins P.A.-C. 07/22/2020 R94.5 Abnormal results of liver functi on studies Meli Jenkins P.A.-C. Plan of Treatment Future Appointment(s):* 01/24/2021 1:45 pm - Meli Jenkins P.A.-C. at Main office [facility] 10/24/2020 - Meli Jenkins P.A.-C.* G40.009 Localization-related (focal) (partial) idiopathic epilepsy a* Comments:* Controlled. Lamictal and Keppra levels pending. Consider reducing Keppra to 250 mg in am and 500 mg in pm to see if her mood improves. * R42 Dizziness and giddiness* Comments:* Aggravated by mood. Medication levels pending. * G44.219 Episodic tension-type headache, not intractable* Comments:* Aggravated by mood issues. * R94.5 Abnormal results of liver function studies* Comments:* Labs pending. * Follow up:* 3 months Functional Status Description No Information Available Mental Status Description No Information Available Referrals Description No Information Available"
--- OUTSIDE RECORDS SUMMARY | 2020-12-23 18:53 | CCD | Continuity of Care Document ---
Author Author Odilia MCLAIN DPM Organization Unknown Address [address] [place] [address], [address] [place] [address] Phone [phone] Care Team Providers Care Wall Washer Name Role Phone Shanice Ross DO [phone] Problems Active Problems Provider Date Osteochondropathy Omar Mclain DPM Onset: 03/10/2018 Corns and callosities Omar Mclain DPM Onset: 03/10/2018 Plantar fascial fibromatosis Omar Mclain DPM Onset: Social History Type Date Description Comments Sex Unknown ETOH Use Denies alcohol use Tobacco Use Start: Unknown Patient has never smoked Allergies, Adverse Reactions, Alerts Active Allergies Criticality Reaction | Severity Comments Date Seasonal Allergies Unable to assess criticality 02/25/2018 Medications Active Medications SIG Qnty Indications Ordering Provide r Date Clotrimazole 1% Cream apply between toes daily 45gm Omar Mclain DPM 07/19/2020 Ammonium Lactate 12% Cream apply to feet daily 140gm Omar Mclain DPM 04/26/2020 Lamotrigine 100mg Tablets Meli Beatty Hydroxyzine HCL 25mg Tablets Unknown Shakila 3-0.02mg Tablets Unknown Aripiprazole 10mg Tablets Unknown Hydroxyzine HCL 50mg Tablets Unknown Lamotrigine 200mg Tablets Meli Beatty Venlafaxine HCL ER 37.5mg Caps ER 24HR Unknown Venlafaxine HCL ER 75mg Caps ER 24HR Unknown Flucelvax Quadrivalent 4483-1367 0.5ml Mayra Administer as Directed Unknown Fluticasone Propionate 50mcg/Act Suspension Aripiprazole 20mg Tablets Unknown Polyethylene Glycol 3350 3350NF [facility] Hydroxyzine HCL 10mg Tablets Unknown Aripiprazole 2mg [...] kg/m2 Results Description No Information Available Procedures Date Code Description Status 10/25/2020 69488 Office/Outpatient Established SF MDM 10-19 Min Completed 07/19/2020 21867 Office/Outpatient Established SF MDM 10-19 Min Completed Medical Devices Description No Information Available Encounters Type Date Location Provider Dx Diagnosis Office Visit 10/25/2020 10:45a [place] [facility] Omar Mclain DPM M72.2 Plantar fascial fibromatosis M21.6x9 Other acquired deformities o f unspecified foot M21.6x1 Other acquired deformities o f right foot M21.6x2 Other acquired deformities o f left foot L84 Corns and callosities M72.2 Plantar fascial fibromatosis Office Visit 07/19/2020 10:45a [place] [facility] Omar Mclain DPM B35.3 Tinea pedis L84 Corns and callosities Assessments Date Code Description Provider 10/25/2020 M72.2 Plantar fascial fibromatosis Nahomy Mclain DPM 10/25/2020 M21.6x9 Other acquired deformities of un specified foot Omar Mclain DPM 10/25/2020 M21.6x1 Other acquired deformities of ri ght foot Omar Mclain DPM 10/25/2020 M21.6x2 Other acquired deformities of le ft foot Omar Mclain, SURAJ 10/25/2020 L84 Corns and callosities Omar Mclain, SURAJ 10/25/2020 M72.2 Plantar fascial fibromatosis And linda Mclain, SURAJ 07/19/2020 B35.3 Tinea pedis Omar Mclain, SURAJ 07/19/2020 L84 Corns and callosities Omar Mclain DPM Plan of Treatment Future Appointment(s):* 01/03/2021 10:45 am - Omar Mclain DPM at [facility] Functional Status Description No Information Available Mental Status Description No Information Available Referrals Description No Information Available
--- OUTSIDE RECORDS SUMMARY | 2020-12-23 18:53 | CCD | Continuity of Care Document ---
Author Author Odilia DURON PA-C Organization Unknown Address [facility] [address] [place] [address] Phone [phone] Problems Active Problems Provider Date Anxiety state Cornel Saleh LCSW Onset: 07/10/2018 Autistic disorder Cornel Saleh LCSW Onset: 07/10/2018 Note: PER HISTORY Intellectual disability Alejo Duron PA-C Onset: 9 Social History Type Date Description Comments Sex Unknown Allergies, Adverse Reactions, Alerts Active Allergies Criticality Reaction | Severity Comments Date NKDA Unable to assess criticality 08/14/2018 NKFA Unable to assess criticality 08/14/2018 Seasonal Unable to assess criticality 08/14/2018 Medications Active Medications SIG Qnty Indications Ordering Provide r Date Buspirone HCL 10mg Tablets 1 tab by mouth three times a day 90tabs F84.0 Narayan Lackey MD 09/21/19 21 Aripiprazole 10mg Tablets 1 tab by mouth twice a day in am and bedtime 60tabs F41.9 Narayan Lackey MD 06/20/2020 F84.0 F79 Hydroxyzine HCL 50mg Tablets take one tablet by mouth three times daily 90tabs F84.0 Narayan pérez MD 03/25/2020 F79 F41.9 Divalproex Sodium 125mg CSDR take 8 capsules by mouth daily at bedtime 240units Unknown 02/08/2020 Effexor XR 37.5mg Caps ER 24HR 1 cap by mouth every morning 90caps F84.0 Narayan Lackey MD F79 F41.9 Effexor XR 75mg Caps ER 24HR 1 cap by mouth every morning 90caps F84.0 Narayan Lackey MD F79 F41.9 Vitamin D3 Super Strength [...] PA 0 Shakila 3-0.02mg Tablets Georgia Perez History Medications Buspirone HCL 15mg Tablets 1 tab by mouth three times a day 90tabs F84.0 Narayan Lackey MD 09/07/19 - 09/20/2020 Immunizations Description No Information Available Vital Signs [...] m2 Results Description No Information Available Procedures Date Code Description Status 11/28/2020 34962 Office/Outpatient Established Mo d MDM 30-39 Min Completed 09/06/2020 82723 Office/Outpatient Established Mo d MDM 30-39 Min Completed 08/01/2020 41013 Office/Outpatient Established Mo d MDM 30-39 Min Completed Medical Devices Description No Information Available Encounters Type Date Location Provider Dx Diagnosis Office Visit 11/28/2020 12:00p [facility] Maddy Duron PA-C F84.0 Autistic disorder F41.9 Anxiety disorder, unspecifie d Office Visit 08/01/2020 12:00p [facility] Maddy Duron PA-C F84.0 Autistic disorder F79 Unspecified intellectual dis abilities F41.9 Anxiety disorder, unspecifie d Assessments Date Code Description Provider 11/28/2020 F84.0 Autistic disorder Alejo Duron PA-C 11/28/2020 F41.9 Anxiety disorder, unspecified Ca deborah Duron PA-C 09/06/2020 F84.0 Autistic disorder Alejo Duron PA-C 09/06/2020 F41.9 Anxiety disorder, unspecified Ca deborah Duron, LESLIE 08/01/2020 F84.0 Autistic disorder Alejo Duron PA-C 08/01/2020 F79 Unspecified intellectual disabil ities Alejo Duron PA-C 08/01/2020 F41.9 Anxiety disorder, unspecified Ca deborah Duron PA-C Plan of Treatment Future Appointment(s):* 03/28/2021 11:20 am - Alejo Duron PA-C at [facility] Functional Status Description No Information Available Mental Status Description No Information Available Referrals Description No Information Available
--- OUTSIDE RECORDS SUMMARY | 2020-12-23 18:53 | CCD | Continuity of Care Document ---
Author Author Odilia JENKINS P.A.-C. Organization Unknown Address [address] [place] [address] Phone [phone] Care Team Providers Care Multimedia Designer Name Role Phone Evangelina Glass M.D. AUTM Problems Active Problems Provider Date Seizure Miladis Dave M.D. Onset: 02/20/2016 Social History Type Date Description Comments Sex Unknown Allergies, Adverse Reactions, Alerts Active Allergies Reaction Severity Comments Date Hay Fever 03/08/2014 Trileptal weight gain, mood issues 03/2020 Valproic Acid elevated LFT's 04/12/2020 Inactive Allergies NKDA 11/03/2013 Medications Active Medications SIG Qnty Indications [...] Result H/L Range Note CBC With Differential 08/18/2020 [facility] White Blood Count 7.1 10 Normal 4.0-10.0 [...] 36.0-66.0 Lymph % 10.1 % Low 24.0-44.0 [place] % 6.8 % Normal 2.0-8.0 Eos % 2.5 % Normal 0.0-3.0 Baso % 0.8 % Normal 0.0-1.0 Immature Granulocyte % 0.8 % Normal 0-3.0 Nucleated Red Blood Cell % 0.0 % Normal 0-0 Neutrophils # 5.6 10 Normal 1.5-8.5 Lymph # 0.7 10 Low 1.5-5.0 [place] # 0.5 10 Normal 0.0-0.8 Eos # 0.2 10 Normal 0.0-0.5 Baso # 0.1 10 Normal 0.0-0.2 Comprehensive Metabolic Profil 08/18/2020 [facility] Glucose, Fasting 72 mg/dL Normal 70-100 Blood Urea Nitrogen 11 mg/dL Normal 7-18 Creatinine For GFR 0.78 mg/dL Normal 0.55-1.30 Glomerular Filtration Rate > 60.0 Normal >60 1 Sodium Level 141 mEq/L Normal 136-145 Potassium [...] 1.0 Low 1.2-2.2 Laboratory test finding 08/18/2020 [facility] Levetiracetam (Keppra) 20.9 ug/mL Normal 10.0-40.0 2 Lamotrigine (Lamictal) 13.1 ug/mL Normal 2.0-20.0 3 CBC With Differential 06/29/2020 [facility] White Blood Count 7.3 10 Normal 4.0-10.0 [...] 36.0-66.0 Lymph % 9.3 % Low 24.0-44.0 [place] % 7.8 % Normal 2.0-8.0 Eos % 3.3 % High 0.0-3.0 Baso % 0.7 % Normal 0.0-1.0 Immature Granulocyte % 0.8 % Normal 0-3.0 Nucleated Red Blood Cell % 0.0 % Normal 0-0 Neutrophils # 5.7 10 Normal 1.5-8.5 Lymph # 0.7 10 Low 1.5-5.0 [place] # 0.6 10 Normal 0.0-0.8 Eos # 0.2 10 Normal 0.0-0.5 Baso # 0.1 10 Normal 0.0-0.2 Comprehensive Metabolic Profil 06/29/2020 [facility] Glucose, Fasting 92 mg/dL Normal 70-100 Blood Urea Nitrogen 14 mg/dL Normal 7-18 Creatinine For GFR 0.74 mg/dL Normal 0.55-1.30 Glomerular Filtration Rate > 60.0 Normal >60 4 Sodium Level 141 mEq/L Normal 136-145 Potassium [...] 0.9 Low 1.2-2.2 Laboratory test finding 06/29/2020 [facility] Levetiracetam (Keppra) 16.2 ug/mL Normal 10.0-40.0 5 Lamotrigine (Lamictal) 10.1 ug/mL Normal 2.0-20.0 6 CBC With Differential 05/31/2020 [facility] White Blood Count 6.2 10 Normal 4.0-10.0 [...] 36.0-66.0 Lymph % 12.1 % Low 24.0-44.0 [place] % 9.2 % High 2.0-8.0 Eos % 3.4 % High 0.0-3.0 Baso % 0.6 % Normal 0.0-1.0 Immature Granulocyte % 1.6 % Normal 0-3.0 Nucleated Red Blood Cell % 0.0 % Normal 0-0 Neutrophils # 4.6 10 Normal 1.5-8.5 Lymph # 0.8 10 Low 1.5-5.0 [place] # 0.6 10 Normal 0.0-0.8 Eos # 0.2 10 Normal 0.0-0.5 Baso # 0.0 10 Normal 0.0-0.2 Comprehensive Metabolic Profil 05/31/2020 [facility] Glucose, Fasting 100 mg/dL Normal 70-100 Blood Urea Nitrogen 10 mg/dL Normal 7-18 Creatinine For GFR 0.69 mg/dL Normal 0.55-1.30 Glomerular Filtration Rate > 60.0 Normal >60 7 Sodium Level 141 mEq/L Normal 136-145 Potassium [...] 0.9 Low 1.2-2.2 Laboratory test finding 05/31/2020 [facility] Levetiracetam (Keppra) 32.1 ug/mL Normal 10.0-40.0 8 Lamotrigine (Lamictal) 10.1 ug/mL Normal 2.0-20.0 9 CBC With Differential 05/03/2020 [facility] White Blood Count 5.0 10 Normal 4.0-10.0 Red Blood Count 4.92 10 Normal 4.00-5.40 Hemoglobin 13.7 g/dL Normal 12.0-15.5 Hematocrit 42.8 % Normal 36.0-47.0 Mean Corpuscular Volume 87.0 fl Normal 80.0-96.0 Mean Corpuscular Hemoglobin 27.8 pg Normal 27.0-33.0 Mean Corpuscular HGB Conc 32.0 g/dL Normal 32.0-36.5 Red Cell Distribution Width 13.1 % Normal 11.5-14.5 Platelet Count, Automated 248 10 Normal 150-450 Neutrophils % 65.6 % Normal 36.0-66.0 Lymph % 16.3 % Low 24.0-44.0 [place] % 11.9 % High 2.0-8.0 Eos % 4.8 % High 0.0-3.0 Baso % 1.2 % High 0.0-1.0 Immature Granulocyte % 0.2 % Normal 0-3.0 Nucleated Red Blood Cell % 0.0 % Normal 0-0 Neutrophils # 3.3 10 Normal 1.5-8.5 Lymph # 0.8 10 Low 1.5-5.0 [place] # 0.6 10 Normal 0.0-0.8 Eos # 0.2 10 Normal 0.0-0.5 Baso # 0.1 10 Normal 0.0-0.2 Comprehensive Metabolic Profil 05/03/2020 [facility] Glucose, Fasting 74 mg/dL Normal 70-100 Blood Urea Nitrogen 13 mg/dL Normal 7-18 Creatinine For GFR 0.81 mg/dL Normal 0.55-1.30 Glomerular Filtration Rate > 60.0 Normal >60 1 0 Sodium Level 142 mEq/L Normal 136-145 Potassium Serum 4.1 mEq/L Normal 3.5-5.1 Chloride Level 105 mEq/L Normal 98-107 Carbon Dioxide Level 29 mEq/L Normal 21-32 Anion Gap 8 mEq/L Normal 8-16 Calcium Level 9.2 mg/dL Normal 8.5-10.1 Ast/Sgot 22 U/L Normal 7-37 Alt/SGPT 38 U/L Normal 12-78 Alkaline Phosphatase 263 U/L High 45-117 Bilirubin,Total 0.5 mg/dL Normal 0.2-1.0 Total Protein 6.8 GM/DL Normal 6.4-8.2 Albumin 3.6 GM/DL Normal 3.2-5.2 Albumin/Globulin Ratio 1.1 Low 1.2-2.2 Laboratory test finding 05/03/2020 [facility] Levetiracetam (Keppra) 7.9 ug/mL Low 10.0-40.0 11 Lamotrigine (Lamictal) 7.2 ug/mL Normal 2.0-20.0 12 1 Units are mL/min/1.73 m2 Chronic Kidney Disease Staging per NKF: Stage I & II GFR >=60 Normal to Mildly Decreased Stage III GFR 30-59 Moderately Decreased Stage IV GFR 15-29 Severely Decreased Stage V GFR <15 Very Little GFR Left ESRD GFR <15 on INSPECTOR [employer] P[employer]S 2 This test was developed and its performance characteristics determined by [facility]. It has not been cleared or approved by the Food and Drug Administration. 3 Detection Limit = 1.0 Performed at: [facility] [id number] Chiropractic Practice Manager: Maida Weber MD, Phone: [phone] 4 Units are mL/min/1.73 m2 Chronic Kidney Disease Staging per NKF: Stage I & II GFR >=60 Normal to Mildly Decreased Stage III GFR 30-59 Moderately Decreased Stage IV GFR 15-29 Severely Decreased Stage V GFR <15 Very Little GFR Left ESRD GFR <15 on INS[employer]OR [employer] PLAST[employer]S 5 This test was developed and its performance characteristics determined by [facility]. It has not been cleared or approved by the Food and Drug Administration. 6 Testing on this sample was p erformed by homogeneous enzyme immunoassay. Detection Limit = 1.0 Performed at: [facility] [id number] Chiropractic Practice Manager: Maida Weber MD, Phone: [phone] Performed at: [facility] [address] [place] [id number] Chiropractic Practice Manager: Nilam Mendoza [facility], Phone: [phone] 7 Units are mL/min/1.73 m2 Chronic Kidney Disease Staging per NKF: Stage I & II GFR >=60 Normal to Mildly Decreased Stage III GFR 30-59 Moderately Decreased Stage IV GFR 15-29 Severely Decreased Stage V GFR <15 Very Little GFR Left ESRD GFR <15 on INSPECTOR [employer] PLAST[employer]S 8 This test was developed and its performance characteristics determined by [facility]. It has not been cleared or approved by the Food and Drug Administration. 9 Testing on this sample was p erformed by homogeneous enzyme immunoassay. Detection Limit = 1.0 Performed at: [facility] [id number] Chiropractic Practice Manager: Maida Weber MD, Phone: [phone] Performed at: [facility] [address] [place] [id number] Chiropractic Practice Manager: Nilam Mendoza [facility], Phone: [phone] Units are mL/min/1.73 m2 Chronic Kidney Disease Staging per NKF: Stage I & II GFR >=60 Normal to Mildly Decreased Stage III GFR 30-59 Moderately Decreased Stage IV GFR 15-29 Severely Decreased Stage V GFR <15 Very Little GFR Left ESRD GFR <15 on INS[employer]OR [employer] P[employer]S 11 This test was developed and its performance characteristics determined by [facility]. It has not been cleared or approved by the Food and Drug Administration. 12 Testing on this sample was p erformed by homogeneous enzyme immunoassay. Detection Limit = 1.0 Performed at: [facility] [id number] Chiropractic Practice Manager: Maida Weber MD, Phone: [phone] Performed at: [facility] [address] [place] [id number] Chiropractic Practice Manager: Nilam Mendoza [facility], Phone: [phone] Procedures Date Code Description Status 10/24/2020 09687 Office/Outpatient Established Mo d MDM 30-39 Min Completed 07/22/2020 97297 Office/Outpatient Established Mo d MDM 30-39 Min Completed 05/03/2020 76811 Phone Evaluation/Management By Julio archer 5-10 Mins Completed Medical Devices Description No Information Available Encounters Type Date Location Provider Dx Diagnosis Office Visit 10/24/2020 10:45a Main office - [place] Maria Esther NolenCRodri G40.009 Local-rel idio epi w seiz of loc onst,no t ntrct,w/o stat epi R42 Dizziness and giddiness G44.219 Episodic tension-type headac he, not intractable R94.5 Abnormal results of liver fu nction studies Office Visit 07/22/2020 8:00a Main office - [place] Julio Nolen.A.-C. G40.009 Local-rel idio epi w seiz of loc onst,no t ntrct,w/o stat epi G44.219 Episodic tension-type headac he, not intractable R42 Dizziness and giddiness R94.5 Abnormal results of liver fu nction studies Office Visit 05/03/2020 8:45a Main office - [place] Aaron NolenARodri-CRodri G40.009 Local-rel idio epi w seiz of loc onst,no t ntrct,w/o stat epi R42 Dizziness and giddiness R51.9 Headache, unspecified R94.5 Abnormal results of liver fu nction studies Assessments Date Code Description Provider 10/24/2020 G40.009 Localization-related (focal) (pa rtial) idiopathic epilepsy a Julio Busby.A.-C. 10/24/2020 R42 Dizziness and giddiness Mlei Jenkins P.A.-C. 10/24/2020 G44.219 Episodic tension-type headache, not intractable Julio Busby.A.-CRodri 10/24/2020 R94.5 Abnormal results of liver functi on studies Julio Busby.A.-CRodri 07/22/2020 G40.009 Localization-related (focal) (pa rtial) idiopathic epilepsy a Julio Busby.A.-C. 07/22/2020 G44.219 Episodic tension-type headache, not intractable Meli Jenkins P.A.-C. 07/22/2020 R42 Dizziness and giddiness Meli Jenkins P.A.-C. 07/22/2020 R94.5 Abnormal results of liver functi on studies Julio Busby.A.-C. 05/03/2020 G40.009 Localization-related (focal) (pa rtial) idiopathic epilepsy a Julio Busby.A.-C. 05/03/2020 R42 Dizziness and giddiness Meli Jenkins P.A.-C. 05/03/2020 R51.9 Headache, unspecified Aaron SaleemARodri-CRodri 05/03/2020 R94.5 Abnormal results of liver functi on studies Meli Jenkins P.A.-C. Plan of Treatment Future Appointment(s):* 01/24/2021 1:45 pm - Meli Jenkins P.A.-C. at [facility] 10/24/2020 - Meli Jenkins P.A.-C.* G40.009 Localization-related [...]
--- OUTSIDE RECORDS SUMMARY | 2020-12-23 18:53 | CCD | Continuity of Care Document ---
Author Author Odilia MILLER M.D. Organization Unknown Address [address] [place] [address] Phone [phone] Care Team Providers Care Test Carrier Name Role Phone Evangelina Glass D.O. AUTM [phone] Gregorio Mathews M.D. AUTM [phone] Problems Description No Information Available Social [...] 1tab po qam Unknown Azelastine HCL (Nasal) 137mcg/[place] Solution prn Unknown Systane Preservative Free 0.4-0.3% Solution 1 drop each eye every morning Unknown Keppra 750mg Tablets 1tab po qhs Unknown Systene Balance Dry Eye Relief qid Unkno wn Immunizations CPT Code Status Date Vaccine Lot # [id number] Given 12/17/2018 [place], Quadrivalent Vital Signs Date Vital Result Comment 10/06/2020 12:41pm Height 67 inches 5'7" Weight 185.00 lb BMI (Body Mass Index) 29.0 kg/m2 [place] Body Weight 135 lb Weight 83.916 kg BSA (Body Surface Area) 1.96 m2 06/16/2020 8:46am BP Systolic 122 mmHg BP Diastolic 68 mmHg Height 67 inches 5'7" Weight 194.00 lb BMI (Body Mass Index) 30.4 kg/m2 [place] Body Weight 135 lb Weight 87.998 kg BSA (Body Surface Area) 2.00 m2 Results Test Acquired Date Facility Test Result H/L Range Note Liver Profile 09/19/2020 [facility] Main Lab [address] [place], [place] [id number] [phone] Ast/Sgot 15 U/L Normal 7-37 Alt/SGPT 22 U/L Normal 12-78 Alkaline Phosphatase 183 U/L High 45-117 Bilirubin,Total 0.6 mg/dL Normal 0.2-1.0 Bilirubin,Direct 0.2 mg/dL Normal 0.0-0.2 Total Protein 6.8 GM/DL Normal 6.4-8.2 Albumin 3.5 GM/DL Normal 3.2-5.2 Albumin/Globulin Ratio 1.1 Low 1.2-2.2 Laboratory test finding 09/19/2020 [facility] Main Lab [address] [place] [address] [phone] Gamma Glutamyltranspeptidase 73 U/L High 5-5 5 1 CBC With Differential 09/19/2020 [facility] Main Lab [address] [place] [address] [phone] White Blood Count 5.2 10 Normal 4.0-10.0 [...] 36.0-66.0 Lymph % 12.9 % Low 24.0-44.0 [place] % 8.7 % High 2.0-8.0 Eos % 3.3 % High 0.0-3.0 Baso % 0.8 % Normal 0.0-1.0 Immature Granulocyte % 0.6 % Normal 0-3.0 Nucleated Red Blood Cell % 0.0 % Normal 0-0 Neutrophils # 3.8 10 Normal 1.5-8.5 Lymph # 0.7 10 Low 1.5-5.0 [place] # 0.5 10 Normal 0.0-0.8 Eos # 0.2 10 Normal 0.0-0.5 Baso # 0.0 10 Normal 0.0-0.2 Laboratory test finding 08/19/2020 [facility] Main Lab [address] [place] [address] [phone] Non Legal Recruiter/Cytology Req For Servi (SEE NOTE) 2 Liver Profile 08/18/2020 [facility] nter Main Lab [address] [place] [address] [phone] Ast/Sgot 12 U/L Normal 7-37 Alt/SGPT 21 U/L Normal 12-78 Alkaline Phosphatase 234 U/L High 45-117 Bilirubin,Total 0.7 mg/dL Normal 0.2-1.0 Bilirubin,Direct 0.2 mg/dL Normal 0.0-0.2 Total Protein 7.5 GM/DL Normal 6.4-8.2 Albumin 3.8 GM/DL Normal 3.2-5.2 Albumin/Globulin Ratio 1.0 Low 1.2-2.2 CBC With Differential 08/18/2020 [facility] Main Lab [address] [place] [address] [phone] White Blood Count 7.1 10 Normal 4.0-10.0 [...] 36.0-66.0 Lymph % 10.6 % Low 24.0-44.0 [place] % 7.7 % Normal 2.0-8.0 Eos % 2.7 % Normal 0.0-3.0 Baso % 0.7 % Normal 0.0-1.0 Immature Granulocyte % 0.6 % Normal 0-3.0 Nucleated Red Blood Cell % 0.0 % Normal 0-0 Neutrophils # 5.6 10 Normal 1.5-8.5 Lymph # 0.8 10 Low 1.5-5.0 [place] # 0.6 10 Normal 0.0-0.8 Eos # 0.2 10 Normal 0.0-0.5 Baso # 0.1 10 Normal 0.0-0.2 PT & Aptt 08/18/2020 [facility] nter Main Lab [address] [place] [address] [phone] Prothrombin Time 12.7 seconds Normal 12.5-14.3 Inr 0.93 Normal 3 Partial Thromboplastin Time 37.4 seconds Normal 24.2-38.5 BUN & Creatinine ([facility]) 08/18/2020 [facility] Main Lab [address] [place], [place] [id number] [phone] Blood Urea Nitrogen 12 mg/dL Normal 7-18 4 Creatinine With GFR 08/18/2020 [facility] nter Main Lab [address] [place] [address] [phone] Creatinine For GFR 0.77 mg/dL Normal 0.55-1.30 Glomerular Filtration Rate > 60.0 Normal >60 5 1 note:<nlbl:demographic_[facility] ed> 2 SPECIMEN: Common bile duct brushing [place] in vial received SPECIMEN ADEQUACY: Satisfactory for [...] RISK) 2.5-3.5 RECURRENT MYOCARDIAL INFARCTION 2.5-3.5 4 note:<nlbl:demographic_[facility] ed> 5 Units are mL/min/1.73 m2 Chronic Kidney Disease Staging per NKF: Stage I & II GFR >=60 Normal to Mildly Decreased Stage III GFR 30-59 Moderately Decreased Stage IV GFR 15-29 Severely Decreased Stage V GFR <15 Very Little GFR Left ESRD GFR <15 on OVEREDGE SEWER Procedures Date Code Description Status 11/10/2020 55660 Plethysmography Determination Maura ng Volumes & Per Airway Resist Completed 11/10/2020 73356 Spirometry Completed 10/06/2020 83226 Office/Outpatient Established Mo d MDM 30-39 Min Completed 08/19/2020 12324 X-Ray For Bile Duct Endoscopy Co mpleted 08/19/2020 21964 Ercp Removal & Exchange Stents B iliary/Pancreatic Duct Completed 08/19/2020 56045 Ercp For Removal Stone(S) Biliar y/Pancreatic Ducts Completed 06/23/2020 50587 X-Ray For Bile Duct Endoscopy Co mpleted 06/23/2020 64413 Ercp Removal & Exchange Stents B iliary/Pancreatic Duct Completed 06/23/2020 22769 Ercp For Removal Stone(S) Biliar y/Pancreatic Ducts Completed 06/16/2020 60831 Office/Outpatient New Moderate M DM 45-59 Minutes Completed 06/13/2020 65651 Office/Outpatient Established Mo d MDM 30-39 Min Completed 06/13/2020 21631 Diffusing Capacity Completed 06/13/2020 67028 Plethysmography Determination Maura ng Volumes & Per Airway Resist Completed 06/13/2020 55054 Bronchospasm Evaluation Complete d Medical Devices Description No Information Available Encounters Type Date Location Provider Dx Diagnosis Office Visit 10/06/2020 11:40a [facility] Gastroenterology Pra cassie Dial M.D. K80.51 Calculus of bile duct w/o ch olangitis or cholecyst w obst T85.590A [facility] compl of bile duct pros thesis, initial encounter Office Visit 06/16/2020 8:30a [facility] ENT Practice Godfrey smith M.D. K80.71 Calculus of GB and bile duct w/o cholecy st w obstruction R94.5 Abnormal results of liver fu nction studies Office Visit 06/13/2020 11:00a [facility] Pulmonary/Thoracic Michelle Bautista M.D. D86.1 Sarcoidosis [...] Godfrey Dial M.D. 06/23/2020 Z46.59 Encounter for fitpadmini g and adjustment of other gastrointestinal appliance [...] ng of lung field Michelle Miller M.D. Plan of Treatment 10/06/2020 - Godfrey Dial M.D.* K80.51 Calculus [...]
--- OUTSIDE RECORDS SUMMARY | 2020-12-23 18:53 | CCD | Continuity of Care Document ---
Author Author Odilia SANDOVAL Organization Unknown Address [address] [facility] [address] [facility], [address] [place] [address] Phone [phone] Care Team Providers Care Binder Roller Name Role Phone Evangelina Glass D.O. AUTM [phone] Gregorio Mathews M.D. AUTM [phone] Problems Description No Information Available Social [...] 1tab po qam Unknown Azelastine HCL (Nasal) 137mcg/[place] Solution prn Unknown Systane Preservative Free 0.4-0.3% Solution 1 drop each eye every morning Unknown Keppra 750mg Tablets 1tab po qhs Unknown Systene Balance Dry Eye Relief qid Unkno wn Immunizations CPT Code Status Date Vaccine Lot # [id number] Given 12/17/2018 [place], Quadrivalent Vital Signs Date Vital Result Comment 10/06/2020 12:41pm Height 67 inches 5'7" Weight 185.00 lb BMI (Body Mass Index) 29.0 kg/m2 [place] Body Weight 135 lb Weight 83.916 kg BSA (Body Surface Area) 1.96 m2 06/16/2020 8:46am BP Systolic 122 mmHg BP Diastolic 68 mmHg Height 67 inches 5'7" Weight 194.00 lb BMI (Body Mass Index) 30.4 kg/m2 [place] Body Weight 135 lb Weight 87.998 kg BSA (Body Surface Area) 2.00 m2 Results Test Acquired Date Facility Test Result H/L Range Note Liver Profile 09/19/2020 [facility] Main Lab [address] [place] [address] [phone] Ast/Sgot 15 U/L Normal 7-37 Alt/SGPT 22 U/L Normal 12-78 Alkaline Phosphatase 183 U/L High 45-117 Bilirubin,Total 0.6 mg/dL Normal 0.2-1.0 Bilirubin,Direct 0.2 mg/dL Normal 0.0-0.2 Total Protein 6.8 GM/DL Normal 6.4-8.2 Albumin 3.5 GM/DL Normal 3.2-5.2 Albumin/Globulin Ratio 1.1 Low 1.2-2.2 Laboratory test finding 09/19/2020 [facility] Main Lab [address] [place] [address] [phone] Gamma Glutamyltranspeptidase 73 U/L High 5-5 5 1 CBC With Differential 09/19/2020 [facility] Main Lab [address] [place] [address] [phone] White Blood Count 5.2 10 Normal 4.0-10.0 [...] 36.0-66.0 Lymph % 12.9 % Low 24.0-44.0 [place] % 8.7 % High 2.0-8.0 Eos % 3.3 % High 0.0-3.0 Baso % 0.8 % Normal 0.0-1.0 Immature Granulocyte % 0.6 % Normal 0-3.0 Nucleated Red Blood Cell % 0.0 % Normal 0-0 Neutrophils # 3.8 10 Normal 1.5-8.5 Lymph # 0.7 10 Low 1.5-5.0 [place] # 0.5 10 Normal 0.0-0.8 Eos # 0.2 10 Normal 0.0-0.5 Baso # 0.0 10 Normal 0.0-0.2 Laboratory test finding 08/19/2020 [facility] Main Lab [address] [place] [address] [phone] Non Flower Stripper/Cytology Req For Servi (SEE NOTE) 2 Liver Profile 08/18/2020 [facility] nter Main Lab [address] [place] [address] [phone] Ast/Sgot 12 U/L Normal 7-37 Alt/SGPT 21 U/L Normal 12-78 Alkaline Phosphatase 234 U/L High 45-117 Bilirubin,Total 0.7 mg/dL Normal 0.2-1.0 Bilirubin,Direct 0.2 mg/dL Normal 0.0-0.2 Total Protein 7.5 GM/DL Normal 6.4-8.2 Albumin 3.8 GM/DL Normal 3.2-5.2 Albumin/Globulin Ratio 1.0 Low 1.2-2.2 CBC With Differential 08/18/2020 [facility] Main Lab [address] [place] [address] [phone] White Blood Count 7.1 10 Normal 4.0-10.0 [...] 36.0-66.0 Lymph % 10.6 % Low 24.0-44.0 [place] % 7.7 % Normal 2.0-8.0 Eos % 2.7 % Normal 0.0-3.0 Baso % 0.7 % Normal 0.0-1.0 Immature Granulocyte % 0.6 % Normal 0-3.0 Nucleated Red Blood Cell % 0.0 % Normal 0-0 Neutrophils # 5.6 10 Normal 1.5-8.5 Lymph # 0.8 10 Low 1.5-5.0 [place] # 0.6 10 Normal 0.0-0.8 Eos # 0.2 10 Normal 0.0-0.5 Baso # 0.1 10 Normal 0.0-0.2 PT & Aptt 08/18/2020 [facility] nter Main Lab [address] [place] [address] [phone] Prothrombin Time 12.7 seconds Normal 12.5-14.3 Inr 0.93 Normal 3 Partial Thromboplastin Time 37.4 seconds Normal 24.2-38.5 BUN & Creatinine ([facility]) 08/18/2020 [facility] Main Lab [address] [place] [address] [phone] Blood Urea Nitrogen 12 mg/dL Normal 7-18 4 Creatinine With GFR 08/18/2020 [facility] nter Main Lab [address] [place] [address] [phone] Creatinine For GFR 0.77 mg/dL Normal 0.55-1.30 Glomerular Filtration Rate > 60.0 Normal >60 5 1 note:<nlbl:demographic_[facility] ed> 2 SPECIMEN: Common bile duct brushing [place] in vial received SPECIMEN ADEQUACY: Satisfactory for [...] RISK) 2.5-3.5 RECURRENT MYOCARDIAL INFARCTION 2.5-3.5 4 note:<nlbl:demographic_[facility] ed> 5 Units are mL/min/1.73 m2 Chronic Kidney Disease Staging per NKF: Stage I & II GFR >=60 Normal to Mildly Decreased Stage III GFR 30-59 Moderately Decreased Stage IV GFR 15-29 Severely Decreased Stage V GFR <15 Very Little GFR Left ESRD GFR <15 on STRIP WINDER Procedures Date Code Description Status 11/10/2020 98183 Plethysmography Determination Maura ng Volumes & Per Airway Resist Completed 11/10/2020 64176 Spirometry Completed 10/06/2020 57408 Office/Outpatient Established Mo d MDM 30-39 Min Completed 08/19/2020 65728 X-Ray For Bile Duct Endoscopy Co mpleted 08/19/2020 32179 Ercp Removal & Exchange Stents B iliary/Pancreatic Duct Completed 08/19/2020 24933 Ercp For Removal Stone(S) Biliar y/Pancreatic Ducts Completed 06/23/2020 57949 X-Ray For Bile Duct Endoscopy Co mpleted 06/23/2020 93393 Ercp Removal & Exchange Stents B iliary/Pancreatic Duct Completed 06/23/2020 78747 Ercp For Removal Stone(S) Biliar y/Pancreatic Ducts Completed 06/16/2020 40174 Office/Outpatient New Moderate M DM 45-59 Minutes Completed 06/13/2020 21517 Office/Outpatient Established Mo d MDM 30-39 Min Completed 06/13/2020 79797 Diffusing Capacity Completed 06/13/2020 68466 Plethysmography Determination Maura ng Volumes & Per Airway Resist Completed 06/13/2020 26915 Bronchospasm Evaluation Complete d Medical Devices Description No Information Available Encounters Type Date Location Provider Dx Diagnosis Office Visit 10/06/2020 11:40a [facility] Gastroenterology Pra ctice Godfrey Sandoval M.D. K80.51 Calculus of bile duct w/o ch olangitis or cholecyst w obst T85.590A [facility] compl of bile duct pros thesis, initial encounter Office Visit 06/16/2020 8:30a [facility] ENT Practice Godfrey smith M.D. K80.71 Calculus of GB and bile duct w/o cholecy st w obstruction R94.5 Abnormal results of liver fu nction studies Office Visit 06/13/2020 11:00a [facility] Pulmonary/Thoracic Michelle Bautista M.D. D86.1 Sarcoidosis [...] field Michelle Pretty M.D. Plan of Treatment 10/06/2020 - Godfrey Sandoval M.D.* K80.51 Calculus [...]
--- OUTSIDE RECORDS SUMMARY | 2020-12-23 18:53 | CCD | Continuity of Care Document ---
Author Author Odilia MCLAIN DPM Organization Unknown Address [address] [place] [address], [address] [place] [address] Phone [phone] Care Team Providers Care Bath Attendant Name Role Phone Shanice Ross DO [phone] Problems Active Problems Provider Date Osteochondropathy Omar [...] 75mg Caps ER 24HR Unknown Flucelvax Quadrivalent 4869-5414 0.5ml Mayra Administer as Directed Unknown Fluticasone Propionate 50mcg/Act Suspension Aripiprazole 20mg Tablets Unknown Polyethylene Glycol 3350 3350NF Powder [facility] Hydroxyzine HCL 10mg Tablets Unknown Aripiprazole [...] Available Procedures Date Code Description Status 10/25/2020 32775 Office/Outpatient Established SF MDM 10-19 Min Completed 07/19/2020 13889 Office/Outpatient Established SF MDM 10-19 Min Completed Medical Devices Description No Information Available Encounters Type Date Location Provider Dx Diagnosis Office Visit 10/25/2020 10:45a [place] [facility] Omar Mclain DPM M72.2 Plantar fascial fibromatosis M21.6x9 Other acquired deformities o f unspecified foot M21.6x1 Other acquired deformities o f right foot M21.6x2 Other acquired deformities o f left foot L84 Corns and callosities M72.2 Plantar fascial fibromatosis Office Visit 07/19/2020 10:45a [place] [facility] Omar Mclain DPM B35.3 Tinea pedis [...] 10:45 am - Omar Mclain DPM at [facility] Functional Status Description No Information Available Mental Status Description No Information Available Referrals Description No Information Available
--- OUTSIDE RECORDS SUMMARY | 2020-12-23 18:53 | CCD | Continuity of Care Document ---
Author Author Pulmonary Lab, Odilia Organization Unknown Address [address] [place] [address] Phone [phone] Care Team Providers Care Global Climate Change Researcher Name Role Phone Evangelina Glass D.O. AUTM [phone] Gregorio Mathews M.D. AUTM Problems Description [...] 1tab po qam Unknown Azelastine HCL (Nasal) 137mcg/[place] Solution prn Unknown Systane Preservative Free 0.4-0.3% Solution 1 drop each eye every morning Unknown Keppra 750mg Tablets 1tab po qhs Unknown Systene Balance Dry Eye Relief qid Unkno wn Immunizations CPT Code Status Date Vaccine Lot # [id number] Given 12/17/2018 Afluria, Quadrivalent, 0.5ml , [facility]# [id number] Vital Signs Date Vital Result Comment 10/06/2020 12:41pm Height 67 inches 5'7" Weight 185.00 lb BMI (Body Mass Index) 29.0 kg/m2 [place] Body Weight 135 lb Weight 83.916 kg BSA (Body Surface Area) 1.96 m2 06/16/2020 8:46am BP Systolic 122 mmHg BP Diastolic 68 mmHg Height 67 inches 5'7" Weight 194.00 lb BMI (Body Mass Index) 30.4 kg/m2 [place] Body Weight 135 lb Weight 87.998 kg BSA (Body Surface Area) 2.00 m2 Results Test Acquired Date Facility Test Result H/L Range Note Liver Profile 09/19/2020 [facility] Main Lab [address] [place] [address] [id number] [phone] Ast/Sgot 15 U/L Normal 7-37 Alt/SGPT 22 U/L Normal 12-78 Alkaline Phosphatase 183 U/L High 45-117 Bilirubin,Total 0.6 mg/dL Normal 0.2-1.0 Bilirubin,Direct 0.2 mg/dL Normal 0.0-0.2 Total Protein 6.8 GM/DL Normal 6.4-8.2 Albumin 3.5 GM/DL Normal 3.2-5.2 Albumin/Globulin Ratio 1.1 Low 1.2-2.2 Laboratory test finding 09/19/2020 [facility] Main Lab [address] [place] [address] [phone] Gamma Glutamyltranspeptidase 73 U/L High 5-5 5 1 CBC With Differential 09/19/2020 [facility] Main Lab [address] [place] [address] [phone] White Blood Count 5.2 10 Normal 4.0-10.0 [...] 36.0-66.0 Lymph % 12.9 % Low 24.0-44.0 [place] % 8.7 % High 2.0-8.0 Eos % 3.3 % High 0.0-3.0 Baso % 0.8 % Normal 0.0-1.0 Immature Granulocyte % 0.6 % Normal 0-3.0 Nucleated Red Blood Cell % 0.0 % Normal 0-0 Neutrophils # 3.8 10 Normal 1.5-8.5 Lymph # 0.7 10 Low 1.5-5.0 [place] # 0.5 10 Normal 0.0-0.8 Eos # 0.2 10 Normal 0.0-0.5 Baso # 0.0 10 Normal 0.0-0.2 Laboratory test finding 08/19/2020 [facility] Main Lab [address] [place] [address] [phone] Non Furnace Repairer Helper/Cytology Req For Servi (SEE NOTE) 2 Liver Profile 08/18/2020 [facility] n[facility] Main Lab [address] [place] [address] [phone] Ast/Sgot 12 U/L Normal 7-37 Alt/SGPT 21 U/L Normal 12-78 Alkaline Phosphatase 234 U/L High 45-117 Bilirubin,Total 0.7 mg/dL Normal 0.2-1.0 Bilirubin,Direct 0.2 mg/dL Normal 0.0-0.2 Total Protein 7.5 GM/DL Normal 6.4-8.2 Albumin 3.8 GM/DL Normal 3.2-5.2 Albumin/Globulin Ratio 1.0 Low 1.2-2.2 CBC With Differential 08/18/2020 [facility] Main Lab [address] [place] [address] [phone] White Blood Count 7.1 10 Normal 4.0-10.0 [...] 36.0-66.0 Lymph % 10.6 % Low 24.0-44.0 [place] % 7.7 % Normal 2.0-8.0 Eos % 2.7 % Normal 0.0-3.0 Baso % 0.7 % Normal 0.0-1.0 Immature Granulocyte % 0.6 % Normal 0-3.0 Nucleated Red Blood Cell % 0.0 % Normal 0-0 Neutrophils # 5.6 10 Normal 1.5-8.5 Lymph # 0.8 10 Low 1.5-5.0 [place] # 0.6 10 Normal 0.0-0.8 Eos # 0.2 10 Normal 0.0-0.5 Baso # 0.1 10 Normal 0.0-0.2 PT & Aptt 08/18/2020 [facility] nter Main Lab [address] [place] [address] [phone] Prothrombin Time 12.7 seconds Normal 12.5-14.3 Inr 0.93 Normal 3 Partial Thromboplastin Time 37.4 seconds Normal 24.2-38.5 BUN & Creatinine ([facility]) 08/18/2020 [facility] Main Lab [address] [place] [address] [phone] Blood Urea Nitrogen 12 mg/dL Normal 7-18 4 Creatinine With GFR 08/18/2020 [facility] nter Main Lab [address] [place] [address] [phone] Creatinine For GFR 0.77 mg/dL Normal 0.55-1.30 Glomerular Filtration Rate > 60.0 Normal >60 5 1 note:<nlbl:demographic_[facility] ed> 2 SPECIMEN: Common bile duct brushing [place] in vial received SPECIMEN ADEQUACY: Satisfactory for [...] RISK) 2.5-3.5 RECURRENT MYOCARDIAL INFARCTION 2.5-3.5 4 note:<nlbl:[facility] ed> 5 Units are mL/min/1.73 m2 Chronic Kidney Disease Staging per NKF: Stage I & II GFR >=60 Normal to Mildly Decreased Stage III GFR 30-59 Moderately Decreased Stage IV GFR 15-29 Severely Decreased Stage V GFR <15 Very Little GFR Left ESRD GFR <15 on BENCH ASSEMBLER OPERATOR Procedures Date Code Description Status 11/10/2020 51257 Plethysmography Determination Maura ng Volumes & Per Airway Resist Completed 11/10/2020 59752 Spirometry Completed 10/06/2020 96094 Office/Outpatient Established Mo d MDM 30-39 Min Completed 08/19/2020 07269 X-Ray For Bile Duct Endoscopy Co mpleted 08/19/2020 68642 Ercp Removal & Exchange Stents B iliary/Pancreatic Duct Completed 08/19/2020 37313 Ercp For Removal Stone(S) Biliar y/Pancreatic Ducts Completed 06/23/2020 46180 X-Ray For Bile Duct Endoscopy Co mpleted 06/23/2020 86773 Ercp Removal & Exchange Stents B iliary/Pancreatic Duct Completed 06/23/2020 90847 Ercp For Removal Stone(S) Biliar y/Pancreatic Ducts Completed 06/16/2020 49090 Office/Outpatient New Moderate M DM 45-59 Minutes Completed 06/13/2020 73679 Office/Outpatient Established Mo d MDM 30-39 Min Completed 06/13/2020 60280 Diffusing Capacity Completed 06/13/2020 95647 Plethysmography Determination Maura ng Volumes & Per Airway Resist Completed 06/13/2020 07015 Bronchospasm Evaluation Complete d Medical Devices Description No Information Available Encounters Type Date Location Provider Dx Diagnosis Office Visit 10/06/2020 11:40a [facility] Godfrey Dial M.D. K80.51 Calculus of bile duct w/o ch olangitis or cholecyst w obst T85.590A [facility] compl of bile duct pros thesis, initial encounter Office Visit 06/16/2020 8:30a [facility] E[facility] Godfrey smith M.D. K80.71 Calculus of GB and bile duct w/o cholecy st w obstruction R94.5 Abnormal results of liver fu nction studies Office Visit 06/13/2020 11:00a [facility] Pulmonary/Thoracic Michelle Bautista M.D. D86.1 Sarcoidosis [...]
--- OUTSIDE RECORDS SUMMARY | 2020-12-23 18:53 | CCD | Continuity of Care Document ---
Author Author Odilia JENKINS P.A.-C. Organization Unknown Address [address] [place] [address] Phone [phone] Care Team Providers Care Director Of Automation Name Role Phone Evangelina Glass M.D. AUTM [phone] Problems Active Problems Provider Date Seizure [...] directions 120tabs G40.009 Miladis Dave M.D. 08/17/2019 Immunizations Description No Information Available Vital Signs Date Vital Result Comment 10/24/2020 7:19am BP Systolic 110 mmHg BP Diastolic 80 mmHg Heart Rate 84 /min Respiratory Rate 16 /min 07/22/2020 7:23am BP Systolic 110 mmHg BP Diastolic 80 mmHg Heart Rate 76 /min Respiratory Rate 16 /min Results Test Acquired Date Facility Test Result H/L Range Note CBC With Differential 11/08/2020 [facility] White Blood Count 8.3 10 Normal 4.0-10.0 [...] 36.0-66.0 Lymph % 12.4 % Low 24.0-44.0 [place] % 7.8 % Normal 2.0-8.0 Eos % 1.8 % Normal 0.0-3.0 Baso % 0.6 % Normal 0.0-1.0 Immature Granulocyte % 0.6 % Normal 0-3.0 Nucleated Red Blood Cell % 0.0 % Normal 0-0 Neutrophils # 6.3 10 Normal 1.5-8.5 Lymph # 1.0 10 Low 1.5-5.0 [place] # 0.6 10 Normal 0.0-0.8 Eos # 0.2 10 Normal 0.0-0.5 Baso # 0.1 10 Normal 0.0-0.2 Comprehensive Metabolic Profil 11/08/2020 [facility] Glucose, Fasting 69 mg/dL Low 70-100 Blood [...] Ratio 1.1 Low 1.2-2.2 Laboratory test finding 11/08/2020 [facility] Levetiracetam (Keppra) 12.6 ug/mL Normal 10.0-40.0 2 Lamotrigine (Lamictal) 12.1 ug/mL Normal 2.0-20.0 3 CBC With Differential 08/18/2020 [facility] White Blood Count 7.1 10 Normal 4.0-10.0 [...] 36.0-66.0 Lymph % 10.1 % Low 24.0-44.0 [place] % 6.8 % Normal 2.0-8.0 Eos % 2.5 % Normal 0.0-3.0 Baso % 0.8 % Normal 0.0-1.0 Immature Granulocyte % 0.8 % Normal 0-3.0 Nucleated Red Blood Cell % 0.0 % Normal 0-0 Neutrophils # 5.6 10 Normal 1.5-8.5 Lymph # 0.7 10 Low 1.5-5.0 [place] # 0.5 10 Normal 0.0-0.8 Eos # 0.2 10 Normal 0.0-0.5 Baso # 0.1 10 Normal 0.0-0.2 Comprehensive Metabolic Profil 08/18/2020 [facility] Glucose, Fasting 72 mg/dL Normal 70-100 Blood [...] 1.0 Low 1.2-2.2 Laboratory test finding 08/18/2020 [facility] Levetiracetam (Keppra) 20.9 ug/mL Normal 10.0-40.0 5 Lamotrigine (Lamictal) 13.1 ug/mL Normal 2.0-20.0 6 CBC With Differential 06/29/2020 [facility] White Blood Count 7.3 10 Normal 4.0-10.0 [...] 36.0-66.0 Lymph % 9.3 % Low 24.0-44.0 [place] % 7.8 % Normal 2.0-8.0 Eos % 3.3 % High 0.0-3.0 Baso % 0.7 % Normal 0.0-1.0 Immature Granulocyte % 0.8 % Normal 0-3.0 Nucleated Red Blood Cell % 0.0 % Normal 0-0 Neutrophils # 5.7 10 Normal 1.5-8.5 Lymph # 0.7 10 Low 1.5-5.0 [place] # 0.6 10 Normal 0.0-0.8 Eos # 0.2 10 Normal 0.0-0.5 Baso # 0.1 10 Normal 0.0-0.2 Comprehensive Metabolic Profil 06/29/2020 [facility] Glucose, Fasting 92 mg/dL Normal 70-100 Blood [...] 0.9 Low 1.2-2.2 Laboratory test finding 06/29/2020 [facility] Levetiracetam (Keppra) 16.2 ug/mL Normal 10.0-40.0 8 Lamotrigine (Lamictal) 10.1 ug/mL Normal 2.0-20.0 9 CBC With Differential 05/31/2020 [facility] White Blood Count 6.2 10 Normal 4.0-10.0 [...] 36.0-66.0 Lymph % 12.1 % Low 24.0-44.0 [place] % 9.2 % High 2.0-8.0 Eos % 3.4 % High 0.0-3.0 Baso % 0.6 % Normal 0.0-1.0 Immature Granulocyte % 1.6 % Normal 0-3.0 Nucleated Red Blood Cell % 0.0 % Normal 0-0 Neutrophils # 4.6 10 Normal 1.5-8.5 Lymph # 0.8 10 Low 1.5-5.0 [place] # 0.6 10 Normal 0.0-0.8 Eos # 0.2 10 Normal 0.0-0.5 Baso # 0.0 10 Normal 0.0-0.2 Comprehensive Metabolic Profil 05/31/2020 [facility] Glucose, Fasting 100 mg/dL Normal 70-100 Blood Urea Nitrogen 10 mg/dL Normal 7-18 Creatinine For GFR 0.69 mg/dL Normal 0.55-1.30 Glomerular Filtration Rate > 60.0 Normal >60 1 0 Sodium Level 141 mEq/L Normal 136-145 Potassium [...] 0.9 Low 1.2-2.2 Laboratory test finding 05/31/2020 [facility] Levetiracetam (Keppra) 32.1 ug/mL Normal 10.0-40.0 11 Lamotrigine (Lamictal) 10.1 ug/mL Normal 2.0-20.0 12 1 Units are mL/min/1.73 m2 Chronic Kidney Disease Staging per NKF: Stage I & II GFR >=60 Normal to Mildly Decreased Stage III GFR 30-59 Moderately Decreased Stage IV GFR 15-29 Severely Decreased Stage V GFR <15 Very Little GFR Left ESRD GFR <15 on SWINGING CUT OFF SAW OPERATOR 2 This test was developed and its performance characteristics determined by [facility]. It has not been cleared or approved by the Food and Drug Administration. 3 Detection Limit = 1.0 Performed at: [address] [id number] Reception Clerk: Maida Weber MD, Phone: [phone] 4 Units are mL/min/1.73 m2 Chronic Kidney Disease Staging per NKF: Stage I & II GFR >=60 Normal to Mildly Decreased Stage III GFR 30-59 Moderately Decreased Stage IV GFR 15-29 Severely Decreased Stage V GFR <15 Very Little GFR Left ESRD GFR <15 on SWINGING CUT OFF SAW OPERATOR 5 This test was developed and its performance characteristics determined by [facility]. It has not been cleared or approved by the Food and Drug Administration. 6 Detection Limit = 1.0 Performed at: [address] [id number] Reception Clerk: Maida Weber MD, Phone: [phone] 7 Units are mL/min/1.73 m2 Chronic Kidney Disease Staging per NKF: Stage I & II GFR >=60 Normal to Mildly Decreased Stage III GFR 30-59 Moderately Decreased Stage IV GFR 15-29 Severely Decreased Stage V GFR <15 Very Little GFR Left ESRD GFR <15 on SWINGING CUT OFF SAW OPERATOR 8 This test was developed and its performance characteristics determined by [facility]. It has not been cleared or approved by the Food and Drug Administration. 9 Testing on this sample was p erformed by homogeneous enzyme immunoassay. Detection Limit = 1.0 Performed at: [address] [id number] Reception Clerk: Maida Weber MD, Phone: [phone] Performed at: [facility] [address] [place] [address] [id number] Reception Clerk: Nilam Mendoza [facility], Phone: [phone] 10 Units are mL/min/1.73 m2 Chronic Kidney Disease Staging per NKF: Stage I & II GFR >=60 Normal to Mildly Decreased Stage III GFR 30-59 Moderately Decreased Stage IV GFR 15-29 Severely Decreased Stage V GFR <15 Very Little GFR Left ESRD GFR <15 on SWINGING CUT OFF SAW OPERATOR 11 This test was developed and its performance characteristics determined by [facility]. It has not been cleared or approved by the Food and Drug Administration. 12 Testing on this sample was p erformed by homogeneous enzyme immunoassay. Detection Limit = 1.0 Performed at: [address] [id number] Reception Clerk: Maida Weber MD, Phone: [phone] Performed at: [facility] [address] [place] [address] [id number] Reception Clerk: Nilam Mendoza [facility], Phone: [phone] Procedures Date Code Description Status 10/24/2020 83686 Office/Outpatient Established Mo d MDM 30-39 Min Completed 07/22/2020 65426 Office/Outpatient Established Mo d MDM 30-39 Min Completed Medical Devices Description No Information Available Encounters Type Date Location Provider Dx Diagnosis Office Visit 10/24/2020 10:45a [place] Bernabe Nolen.LeloCRodri G40.009 Local-rel idio epi w seiz of loc onst,no t ntrct,w/o stat epi R42 Dizziness and giddiness G44.219 Episodic tension-type headac he, not intractable R94.5 Abnormal results of liver fu nction studies Office Visit 07/22/2020 8:00a Main office - [place] Aaron NolenA.-C. G40.009 Local-rel idio epi w [...] results of liver functi on studies Meli Jnekins P.A.-C. 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 07/22/2020 G44.219 Episodic tension-type headache, not intractable Meli Jenknis P.A.-C. 07/22/2020 R42 Dizziness and giddiness Meli Jenkins P.A.-C. 07/22/2020 R94.5 Abnormal results of liver functi on studies Meli Jenkins P.A.-C. Plan of Treatment Future Appointment(s):* 01/24/2021 1:45 pm - Meli Jenkins P.A.-C. at Main office [facility] 10/24/2020 - Meli Jenkins P.A.-C.* G40.009 Localization-related [...]
--- OUTSIDE RECORDS SUMMARY | 2020-12-23 18:53 | CCD | Continuity of Care Document ---
Author Author Odilia MCLAIN DPM Organization Unknown Address [address] [place] [address], [address] [place] [address] Phone [phone] Care Team Providers Care Schedule Maker Name Role Phone Shanice Ross DO [phone] Problems Active Problems Provider Date Osteochondropathy Omar [...] 75mg Caps ER 24HR Unknown Flucelvax Quadrivalent 5241-6391 0.5ml Mayra Administer as Directed Unknown Fluticasone Propionate 50mcg/Act Suspension Aripiprazole 20mg Tablets Unknown Polyethylene Glycol 3350 3350NF Powder [facility] Hydroxyzine HCL 10mg Tablets Unknown Aripiprazole 2mg [...] Available Procedures Date Code Description Status 10/25/2020 11405 Office/Outpatient Established SF MDM 10-19 Min Completed 07/19/2020 04312 Office/Outpatient Established SF MDM 10-19 Min Completed Medical Devices Description No Information Available Encounters Type Date Location Provider Dx Diagnosis Office Visit 10/25/2020 10:45a [place] [facility] Omar Mclain DPM M72.2 Plantar fascial fibromatosis M21.6x9 Other acquired deformities o f unspecified foot M21.6x1 Other acquired deformities o f right foot M21.6x2 Other acquired deformities o f left foot L84 Corns and callosities M72.2 Plantar fascial fibromatosis Office Visit 07/19/2020 10:45a [place] [facility] Omar Mclain DPM B35.3 Tinea pedis [...] 10:45 am - Omar Mclain DPM at [facility] Functional Status Description No Information Available Mental Status Description No Information Available Referrals Description No Information Available
--- OUTSIDE RECORDS SUMMARY | 2020-12-23 18:53 | CCD | Continuity of Care Document ---
Author Author Odilia MCLAIN DPM Organization Unknown Address [address] [place] [address], [address] [place] [address] Phone [phone] Care Team Providers Care Patient Care Technician Instructor Name Role Phone Shanice Ross DO [phone] Problems Active Problems Provider Date Osteochondropathy Omar [...] 75mg Caps ER 24HR Unknown Flucelvax Quadrivalent 4769-4912 0.5ml Mayra Administer as Directed Unknown Fluticasone Propionate 50mcg/Act Suspension Aripiprazole 20mg Tablets Unknown Polyethylene Glycol 3350 3350NF Powder [facility] Hydroxyzine HCL 10mg Tablets Unknown Aripiprazole 2mg [...] Available Procedures Date Code Description Status 10/25/2020 39060 Office/Outpatient Established SF MDM 10-19 Min Completed 07/19/2020 79633 Office/Outpatient Established SF MDM 10-19 Min Completed Medical Devices Description No Information Available Encounters Type Date Location Provider Dx Diagnosis Office Visit 10/25/2020 10:45a [place] [facility] Omar Mclain DPM M72.2 Plantar fascial fibromatosis M21.6x9 Other acquired deformities o f unspecified foot M21.6x1 Other acquired deformities o f right foot M21.6x2 Other acquired deformities o f left foot L84 Corns and callosities 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
--- OUTSIDE RECORDS SUMMARY | 2020-12-23 18:54 | CCD | Continuity of Care Document ---
Author Author Odilia JENKINS P.A.-C. Organization Unknown Address [address] [place] [id number] Phone [phone] Care Team Providers Care Bobbin Trucker Name Role Phone Evangelina Glass M.D. AUTM [...] Available Vital Signs Date Vital Result Comment 07/22/2020 7:23am BP Systolic 110 mmHg BP Diastolic 80 mmHg Heart Rate 76 /min Respiratory Rate 16 /min 10/30/2019 6:50am BP Systolic 110 mmHg BP Diastolic 70 mmHg Heart Rate 68 /min Respiratory Rate 16 /min Results Test Acquired Date Facility Test Result H/L Range Note CBC With Differential 08/18/2020 [facility] White Blood Count 7.1 10 Normal [...] 36.0-66.0 Lymph % 10.1 % Low 24.0-44.0 [place] % 6.8 % Normal 2.0-8.0 Eos % 2.5 % Normal 0.0-3.0 Baso % 0.8 % Normal 0.0-1.0 Immature Granulocyte % 0.8 % Normal 0-3.0 Nucleated Red Blood Cell % 0.0 % Normal 0-0 Neutrophils # 5.6 10 Normal 1.5-8.5 Lymph # 0.7 10 Low 1.5-5.0 [place] # 0.5 10 Normal 0.0-0.8 Eos # 0.2 10 Normal 0.0-0.5 Baso # 0.1 10 Normal 0.0-0.2 Comprehensive Metabolic Profil 08/18/2020 [facility] Glucose, Fasting 72 mg/dL Normal 70-100 [...] 1.0 Low 1.2-2.2 Laboratory test finding 08/18/2020 [facility] Levetiracetam (Keppra) 20.9 ug/mL Normal 10.0-40.0 2 Lamotrigine (Lamictal) 13.1 ug/mL Normal 2.0-20.0 3 CBC With Differential 06/29/2020 [facility] White Blood Count 7.3 10 Normal [...] 36.0-66.0 Lymph % 9.3 % Low 24.0-44.0 [place] % 7.8 % Normal 2.0-8.0 Eos % 3.3 % High 0.0-3.0 Baso % 0.7 % Normal 0.0-1.0 Immature Granulocyte % 0.8 % Normal 0-3.0 Nucleated Red Blood Cell % 0.0 % Normal 0-0 Neutrophils # 5.7 10 Normal 1.5-8.5 Lymph # 0.7 10 Low 1.5-5.0 [place] # 0.6 10 Normal 0.0-0.8 Eos # 0.2 10 Normal 0.0-0.5 Baso # 0.1 10 Normal 0.0-0.2 Comprehensive Metabolic Profil 06/29/2020 [facility] Glucose, Fasting 92 mg/dL Normal 70-100 [...] 0.9 Low 1.2-2.2 Laboratory test finding 06/29/2020 [facility] Levetiracetam (Keppra) 16.2 ug/mL Normal 10.0-40.0 5 Lamotrigine (Lamictal) 10.1 ug/mL Normal 2.0-20.0 6 CBC With Differential 05/31/2020 [facility] White Blood Count 6.2 10 Normal [...] 36.0-66.0 Lymph % 12.1 % Low 24.0-44.0 [place] % 9.2 % High 2.0-8.0 Eos % 3.4 % High 0.0-3.0 Baso % 0.6 % Normal 0.0-1.0 Immature Granulocyte % 1.6 % Normal 0-3.0 Nucleated Red Blood Cell % 0.0 % Normal 0-0 Neutrophils # 4.6 10 Normal 1.5-8.5 Lymph # 0.8 10 Low 1.5-5.0 [place] # 0.6 10 Normal 0.0-0.8 Eos # 0.2 10 Normal 0.0-0.5 Baso # 0.0 10 Normal 0.0-0.2 Comprehensive Metabolic Profil 05/31/2020 [facility] Glucose, Fasting 100 mg/dL Normal 70-100 [...] 0.9 Low 1.2-2.2 Laboratory test finding 05/31/2020 [facility] Levetiracetam (Keppra) 32.1 ug/mL Normal 10.0-40.0 8 Lamotrigine (Lamictal) 10.1 ug/mL Normal 2.0-20.0 9 CBC With Differential 05/03/2020 [facility] White Blood Count 5.0 10 Normal [...] 36.0-66.0 Lymph % 16.3 % Low 24.0-44.0 [place] % 11.9 % High 2.0-8.0 Eos % 4.8 % High 0.0-3.0 Baso % 1.2 % High 0.0-1.0 Immature Granulocyte % 0.2 % Normal 0-3.0 Nucleated Red Blood Cell % 0.0 % Normal 0-0 Neutrophils # 3.3 10 Normal 1.5-8.5 Lymph # 0.8 10 Low 1.5-5.0 [place] # 0.6 10 Normal 0.0-0.8 Eos # 0.2 10 Normal 0.0-0.5 Baso # 0.1 10 Normal 0.0-0.2 Comprehensive Metabolic Profil 05/03/2020 [facility] Glucose, Fasting 74 mg/dL Normal 70-100 [...] 1.1 Low 1.2-2.2 Laboratory test finding 05/03/2020 [facility] Levetiracetam (Keppra) 7.9 ug/mL Low 10.0-40.0 11 Lamotrigine (Lamictal) 7.2 ug/mL Normal 2.0-20.0 12 1 Units are mL/min/1.73 m2 Chronic Kidney Disease Staging per NKF: Stage I & II GFR >=60 Normal to Mildly Decreased Stage III GFR 30-59 Moderately Decreased Stage IV GFR 15-29 Severely Decreased Stage V GFR <15 Very Little GFR Left ESRD GFR <15 on LOADING DOCK HAND 2 This test was developed and its performance characteristics determined by [facility]. It has not been cleared or approved by the Food and Drug Administration. 3 Detection Limit = 1.0 Performed at: [facility] [id number] Clinical Applications Manager: Maida Weber MD, Phone: [phone] 4 Units are mL/min/1.73 m2 Chronic Kidney Disease Staging per NKF: Stage I & II GFR >=60 Normal to Mildly Decreased Stage III GFR 30-59 Moderately Decreased Stage IV GFR 15-29 Severely Decreased Stage V GFR <15 Very Little GFR Left ESRD GFR <15 on LOADING DOCK HAND 5 This test was developed and its performance characteristics determined by [facility]. It has not been cleared or approved by the Food and Drug Administration. 6 Testing on this sample was p erformed by homogeneous enzyme immunoassay. Detection Limit = 1.0 Performed at: [facility] [id number] Clinical Applications Manager: Maida Weber MD, Phone: [phone] Performed at: [facility] [address] [place] [id number] Clinical Applications Manager: Nilam Mendoza [facility], Phone: [phone] 7 Units are mL/min/1.73 m2 Chronic Kidney Disease Staging per NKF: Stage I & II GFR >=60 Normal to Mildly Decreased Stage III GFR 30-59 Moderately Decreased Stage IV GFR 15-29 Severely Decreased Stage V GFR <15 Very Little GFR Left ESRD GFR <15 on LOADING DOCK HAND 8 This test was developed and its performance characteristics determined by [facility]. It has not been cleared or approved by the Food and Drug Administration. 9 Testing on this sample was p erformed by homogeneous enzyme immunoassay. Detection Limit = 1.0 Performed at: [facility] [id number] Clinical Applications Manager: Maida Weber MD, Phone: [phone] Performed at: [facility] [address] [place] [id number] Clinical Applications Manager: Nilam Mendoza [facility], Phone: [phone] 10 Units are mL/min/1.73 m2 Chronic Kidney Disease Staging per NKF: Stage I & II GFR >=60 Normal to Mildly Decreased Stage III GFR 30-59 Moderately Decreased Stage IV GFR 15-29 Severely Decreased Stage V GFR <15 Very Little GFR Left ESRD GFR <15 on LOADING DOCK HAND 11 This test was developed and its performance characteristics determined by [employer]. It has not been cleared or approved by the Food and Drug Administration. 12 Testing on this sample was p erformed by homogeneous enzyme immunoassay. Detection Limit = 1.0 Performed at: [facility] [employer] [id number] Clinical Applications Manager: Maida Weber MD, Phone: [phone] Performed at: [facility] [address] [place] [id number] Clinical Applications Manager: Nilam Mendoza [facility], Phone: [phone] Procedures Date Code Description Status 07/22/2020 06570 Office/Outpatient Established Mo d MDM 30-39 Min Completed 05/03/2020 69518 Phone Evaluation/Management By Julio archer 5-10 Mins Completed Medical Devices Description No Information Available Encounters Type Date Location Provider Dx Diagnosis Office Visit 07/22/2020 8:00a Main office - [place] Aaron NolenA.-C. G40.009 Local-rel idio epi w seiz of loc onst,no t ntrct,w/o stat epi G44.219 Episodic tension-type headac he, not intractable R42 Dizziness and giddiness R94.5 Abnormal results of liver fu nction studies Office Visit 05/03/2020 8:45a Main office - [place] Julio Nolen.A.-C. G40.009 Local-rel idio epi w seiz of loc onst,no t ntrct,w/o stat epi R42 Dizziness and giddiness R51.9 Headache, unspecified R94.5 Abnormal results of liver fu nction studies Assessments Date Code Description Provider 10/24/2020 G40.009 Localization-related (focal) (pa rtial) idiopathic epilepsy a Meli Jenkins P.A.-C. 10/24/2020 R42 Dizziness and giddiness Meli Jenkins, P.A.-C. 10/24/2020 G44.219 Episodic tension-type headache, not intractable Meli Jenkins, P.A.-C. 10/24/2020 R94.5 Abnormal results of liver functi on studies Meli Jenkins, P.A.-C. 07/22/2020 G40.009 Localization-related (focal) (pa rtial) idiopathic epilepsy a Meli Jenkins, P.A.-C. 07/22/2020 G44.219 Episodic tension-type headache, not intractable Meli Jenkins, P.A.-C. 07/22/2020 R42 Dizziness and giddiness Meli Jenkins, P.A.-C. 07/22/2020 R94.5 Abnormal results of liver functi on studies Meli Jenkins, P.A.-C. 05/03/2020 G40.009 Localization-related (focal) (pa rtial) idiopathic epilepsy a Meli Jenkins, P.A.-C. 05/03/2020 R42 Dizziness and giddiness Meli Jenkins, P.A.-C. 05/03/2020 R51.9 Headache, unspecified Meli diaz, P.A.-C. 05/03/2020 R94.5 Abnormal results of liver functi on studies Meli Jenkins, P.A.-C. Plan of Treatment No Information Available Functional Status Description No Information Available Mental Status Description No Information Available Referrals Description No Information Available
--- OUTSIDE RECORDS SUMMARY | 2020-12-23 18:54 | CCD | Continuity of Care Document ---
Author Author Odilia SANDOVAL Organization Unknown Address [address], [address] [place] [address] Phone [phone] Care Team Providers Care Pens And Pencils Repairer Name Role Phone Evangelina Glass D.O. AUTM Gregorio Mathews M.D. AUTM Problems Description No [...] 1tab po qam Unknown Azelastine HCL (Nasal) 137mcg/[place] Solution prn Unknown Systane Preservative Free 0.4-0.3% Solution 1 drop each eye every morning Unknown Keppra 750mg Tablets 1tab po qhs Unknown Systene Balance Dry Eye Relief qid Unkno wn Immunizations CPT Code Status Date Vaccine Lot # [id number] Given 12/17/2018 Afluria, Quadrivalent, 0.5ml , [facility]# [id number] Vital Signs Date Vital Result Comment 06/16/2020 8:46am BP Systolic 122 mmHg BP Diastolic 68 mmHg Height 67 inches 5'7" Weight 194.00 lb BMI (Body Mass Index) 30.4 kg/m2 [place] Body Weight 135 lb Weight 87.998 kg BSA (Body Surface Area) 2.00 m2 06/13/2020 10:03am BP Systolic 120 mmHg BP Diastolic 88 mmHg Heart Rate 62 /min O2 % BldC Oximetry 98 % Body Temperature 96.2 F Height 66 inches 5'6" Weight 192.00 lb BMI (Body Mass Index) 31.0 kg/m2 [place] Body Weight 130 lb Weight 87.091 kg BSA (Body Surface Area) 1.97 m2 Results Test Acquired Date Facility Test Result H/L Range Note Liver Profile 09/19/2020 [facility] Main [facility] [address] [place], [place] [id number] [phone] Ast/Sgot 15 U/L Normal 7-37 Alt/SGPT 22 U/L Normal 12-78 Alkaline Phosphatase 183 U/L High 45-117 Bilirubin,Total 0.6 mg/dL Normal 0.2-1.0 Bilirubin,Direct 0.2 mg/dL Normal 0.0-0.2 Total Protein 6.8 GM/DL Normal 6.4-8.2 Albumin 3.5 GM/DL Normal 3.2-5.2 Albumin/Globulin Ratio 1.1 Low 1.2-2.2 Laboratory test finding 09/19/2020 [facility] Main Lab [address] [place] [address] [phone] Gamma Glutamyltranspeptidase 73 U/L High 5-5 5 1 CBC With Differential 09/19/2020 [facility] Main Lab [address] [place] [address] [phone] White Blood Count 5.2 10 Normal 4.0-10.0 [...] 36.0-66.0 Lymph % 12.9 % Low 24.0-44.0 [place] % 8.7 % High 2.0-8.0 Eos % 3.3 % High 0.0-3.0 Baso % 0.8 % Normal 0.0-1.0 Immature Granulocyte % 0.6 % Normal 0-3.0 Nucleated Red Blood Cell % 0.0 % Normal 0-0 Neutrophils # 3.8 10 Normal 1.5-8.5 Lymph # 0.7 10 Low 1.5-5.0 [place] # 0.5 10 Normal 0.0-0.8 Eos # 0.2 10 Normal 0.0-0.5 Baso # 0.0 10 Normal 0.0-0.2 Laboratory test finding 08/19/2020 [facility] Main Lab [address] [place] [address] [phone] Non Radiology Administrator/Cytology Req For Servi (SEE NOTE) 2 Liver Profile 08/18/2020 [facility] Main Lab [address] [place] [address] [phone] Ast/Sgot 12 U/L Normal 7-37 Alt/SGPT 21 U/L Normal 12-78 Alkaline Phosphatase 234 U/L High 45-117 Bilirubin,Total 0.7 mg/dL Normal 0.2-1.0 Bilirubin,Direct 0.2 mg/dL Normal 0.0-0.2 Total Protein 7.5 GM/DL Normal 6.4-8.2 Albumin 3.8 GM/DL Normal 3.2-5.2 Albumin/Globulin Ratio 1.0 Low 1.2-2.2 CBC With Differential 08/18/2020 [facility] Main Lab [address] [place] [address] [phone] White Blood Count 7.1 10 Normal 4.0-10.0 [...] 36.0-66.0 Lymph % 10.6 % Low 24.0-44.0 [place] % 7.7 % Normal 2.0-8.0 Eos % 2.7 % Normal 0.0-3.0 Baso % 0.7 % Normal 0.0-1.0 Immature Granulocyte % 0.6 % Normal 0-3.0 Nucleated Red Blood Cell % 0.0 % Normal 0-0 Neutrophils # 5.6 10 Normal 1.5-8.5 Lymph # 0.8 10 Low 1.5-5.0 [place] # 0.6 10 Normal 0.0-0.8 Eos # 0.2 10 Normal 0.0-0.5 Baso # 0.1 10 Normal 0.0-0.2 PT & Aptt 08/18/2020 [facility] Main [facility] [address] [place] [address] [phone] Prothrombin Time 12.7 seconds Normal 12.5-14.3 Inr 0.93 Normal 3 Partial Thromboplastin Time 37.4 seconds Normal 24.2-38.5 BUN & Creatinine ([facility]) 08/18/2020 [facility] Main Lab [address] [place] [address] [phone] Blood Urea Nitrogen 12 mg/dL Normal 7-18 4 Creatinine With GFR 08/18/2020 [facility] Main Lab [address] [place] [address] [phone] Creatinine For GFR 0.77 mg/dL Normal 0.55-1.30 Glomerular Filtration Rate > 60.0 Normal >60 5 1 note:<nlbl:demographic_[facility] ed> 2 SPECIMEN: Common bile duct brushing [place] in vial received SPECIMEN ADEQUACY: Satisfactory for evaluation CATEGORIZATION: No Malignancy identified DESCRIPTIONS: Reactive ductal cells noted. COMMENTS: 08/22/2020 - 43 Signed COLEEN BRAVO(ASCP) 08/22/2020 0743 (Prelim) Signed LEAH JIMENEZ MD 08/22/2020 0911 3 THERAPUTIC HUMAN INR VALUES INDICATIONS NORMAL RANGES PROPHYLAXIS/TREATMENT OF: VENOUS THROMBOSIS 2.0-3.0 PULMONARY EMBOLISM 2.0-3.0 PREVENTION OF SYSTEMIC EMBOLISM FROM: TISSUE HEART VALVES 2.0-3.0 ACUTE MYOCARDIAL INFARCTION 2.0-3.0 VALVULAR HEART DISEASE 2.0-3.0 ATRIAL FIBRILLATION 2.0-3.0 MECHANICAL VALVES(HIGH RISK) 2.5-3.5 RECURRENT MYOCARDIAL INFARCTION 2.5-3.5 4 note:<nlbl:demographic_[facility] ed> 5 Units are mL/min/1.73 m2 Chronic Kidney Disease Staging per NKF: Stage I & II GFR >=60 Normal to Mildly Decreased Stage III GFR 30-59 Moderately Decreased Stage IV GFR 15-29 Severely Decreased Stage V GFR <15 Very Little GFR Left ESRD GFR <15 on AUTHOR Procedures Date Code Description Status 08/19/2020 21916 X-Ray For Bile Duct Endoscopy Co mpleted 08/19/2020 85132 Ercp Removal & Exchange Stents B iliary/Pancreatic Duct Completed 08/19/2020 38169 Ercp For Removal Stone(S) Biliar y/Pancreatic Ducts Completed 06/23/2020 23998 X-Ray For Bile Duct Endoscopy Co mpleted 06/23/2020 87921 Ercp Removal & Exchange Stents B iliary/Pancreatic Duct Completed 06/23/2020 53301 Ercp For Removal Stone(S) Biliar y/Pancreatic Ducts Completed 06/16/2020 96301 Office/Outpatient New Moderate M DM 45-59 Minutes Completed 06/13/2020 06177 Office/Outpatient Established Mo d MDM 30-39 Min Completed 06/13/2020 64078 Diffusing Capacity Completed 06/13/2020 06222 Plethysmography Determination Maura ng Volumes & Per Airway Resist Completed 06/13/2020 42447 Bronchospasm Evaluation Complete d Medical Devices Description No Information Available Encounters Type Date Location Provider Dx Diagnosis Office Visit 06/16/2020 8:30a [facility] Godfrey smith M.D. K80.71 Calculus of GB and bile duct w/o cholecy st w obstruction R94.5 Abnormal results of liver fu nction studies Office Visit 06/13/2020 11:00a [facility] Pulmonary/Thoracic Michelle Bautista M.D. 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 at [facility] Pulmonary/Thoracic * 11/10/2020 9:00 am - Pulmonary Lab at [facility] Pulmonary/Thoracic 06/16/2020 - Godfrey Sandoval M.D.* K80.71 Calculus of gallbladder and bile duct without cholecystitis with obstruction * R94.5 Abnormal results of liver function studies * * Comments:* Impression:-- Abnormal Liver chemistries, [...] possible differential diagnoses in detail. -- Will schedule for repeat ERCP and CBD evaluation [...]
--- OUTSIDE RECORDS SUMMARY | 2020-12-23 18:55 | CCD ---
Author Author [facility] Address Unknown Phone Unavailable Care Team Providers Care Broke Handler Name Role Phone Michelle Pretty MD Unavailable Unavailable Michelle Pretty [...] Unavailable Unavailable Michelle Pretty MD Unavailable Unavailable Harry Mathews MD Unavailable [...] Unavailable Unavailable Harry Mathews MD Unavailable Unavailable Hrary Mathews MD Unavailable Unavailable Harry Mathews MD Unavailable Unavailable Harry Mathews MD Unavailable Unavailable Harry Mathews MD Unavailable Unavailable Harry Mathews MD Unavailable Unavailable Harry Mathews MD Unavailable Unavailable Harry Mathews MD Unavailable Unavailable Harry Mathews MD Unavailable Unavailable Harry Mathews MD Unavailable Unavailable Whittemore, F Steve PA Unavailable Unavailable Sonia, F Steve PA Unavailable Unavailable Sonia, F Steve PA Unavailable Unavailable Whittemore, F Steev PA Unavailable Unavailable Whittemore, F Steve PA Unavailable Unavailable Sonia, F Steve PA Unavailable Unavailable Whittemore, F Steve PA Unavailable Unavailable Sonia, F Steve PA Unavailable Unavailable Sonia, F Steve PA Unavailable Unavailable Whittemore, F Steve PA Unavailable Unavailable Hadian, Mor Unavailable Unavailable Hadian, [...] Mor Unavailable Unavailable Hadian, Mor Unavailable Unavailable Kingsland, Nadine PA Unavailable Unavailable Sergio, Nadine PA Unavailable Unavailable Sergio, Nadine PA Unavailable Unavailable Sergio, Nadine PA Unavailable Unavailable MAJAK, R ARIS DPM Unavailable Unavailable MAJAK, R ARIS DPM Unavailable Unavailable MAJJENNIFER, R ARIS DPM Unavailable Unavailable MAJAK, R ARIS DPM Unavailable Unavailable MAJAK, R ARIS DPM Unavailable Unavailable MAJAK, R ARIS DPM Unavailable Unavailable MAJAK, R ARIS DPM Unavailable Unavailable MAJAK, R ARIS DPM Unavailable Unavailable MAJAK, R ARIS DPM Unavailable Unavailable MAJAK, R ARIS DPM Unavailable Unavailable MAJAK, R ARIS DPM Unavailable Unavailable MAJAK, R ARIS DPM Unavailable Unavailable MAJAK, R ARIS DPM Unavailable Unavailable MAJAK, R ARIS DPM Unavailable Unavailable MAJAK, R ARIS DPM Unavailable Unavailable MAJAK, R ARIS DPM Unavailable Unavailable MAJAK, R ARIS DPM Unavailable Unavailable MAJAK, R ARIS DPM Unavailable Unavailable MAJAK, R ARIS DPM Unavailable Unavailable MAJAK, R ARIS DPM Unavailable Unavailable MAJAK, R ARIS DPM Unavailable Unavailable MAJAK, R ARIS DPM Unavailable Unavailable MAJAK, R ARIS DPM Unavailable Unavailable MAJAK, R ARIS DPM Unavailable Unavailable MAJAK, R ARIS DPM Unavailable Unavailable MAJAK, R ARIS DPM Unavailable Unavailable MAJAK, R ARIS DPM Unavailable Unavailable MAJAK, R ARIS DPM Unavailable Unavailable MAJAK, R ARIS DPM Unavailable Unavailable MAJAK, R ARIS DPM Unavailable Unavailable MAJAK, R [...] Unavailable MANN, J ZOË PA Unavailable Unavailable Trickey, J Meli PA [...] Unavailable Trickey, J Meli PA Unavailable Unavailable TITOFF, SHEILA Unavailable Unavailable MANN, J ZOË PA Unavailable [...] Unavailable MANN, J ZOË PA Unavailable Unavailable Kristy SANDOVAL MD Unavailable Unavailable Kristy SANDOVAL MD Unavailable Unavailable Kristy SANDOVAL MD Unavailable Unavailable Kristy SANDOVAL MD Unavailable Unavailable Kristy SANDOVAL MD Unavailable Unavailable Kristy SANDOVAL MD Unavailable Unavailable Kristy SANDOVAL MD Unavailable Unavailable Kristy SANDOVAL MD Unavailable Unavailable Kristy SANDOVAL MD Unavailable Unavailable Kristy SANDOVAL MD Unavailable Unavailable Kristy SANDOVAL MD Unavailable Unavailable Kristy SANDOVAL MD Unavailable Unavailable Kristy SANDOVAL MD Unavailable Unavailable Kristy SANDOVAL MD Unavailable Unavailable Kristy SANDOVAL MD Unavailable Unavailable Kristy SANDOVAL MD Unavailable Unavailable Kristy SANDOVAL MD Unavailable Unavailable Kristy SANDOVAL MD Unavailable Unavailable Kristy SANDOVAL MD Unavailable Unavailable Kristy SANDOVAL MD Unavailable Unavailable Kristy SANDOVAL MD Unavailable Unavailable Kristy SANDOVAL MD Unavailable Unavailable Kristy SANDOVAL MD Unavailable Unavailable Kristy SANDOVAL MD Unavailable Unavailable Kristy SANDOVAL MD Unavailable Unavailable Kristy SANDOVAL MD Unavailable Unavailable Kristy SANDOVAL MD Unavailable Unavailable Kristy SANDOVAL MD Unavailable Unavailable Kristy SANDOVAL MD Unavailable Unavailable Kristy SANDOVAL MD Unavailable Unavailable Kristy SANDOVAL MD Unavailable Unavailable Kristy SANDOVAL MD Unavailable Unavailable Kristy SANDOVAL MD Unavailable Unavailable Re-disclosure Warning The records that [...] is protected by Article 27-F of the [facility] Public Health law. If you continue you may have access to information: Regarding HIV / AIDS; Provided by facilities licensed or operated by the [facility] Office of Mental Health; or Provided by the [facility] Office for People With Developmental Disabilities. If such information is present, then the following [facility] mandated warning applies: This information has [...] law may result in a fine or residential sentence or both. A general authorization for the release of medical or other information is NOT sufficient authorization for further disc losure. Allergies and Adverse Reactions Type Description Substance Reaction Status Data Source(s ) Drug allergy Drug allergy No Known Allergies [facility] Propensity to adverse reactions NO KNOWN ALLERGIES NO KNOWN ALLERGIES [facility] Propensity to adverse reactions NKDA NKDA MEDENT ([facility]) Family History Family Member Name Family Member Gender Family Member Status Date o f Status Description Data Source(s) Unknown Male Problem MEDENT ([facility] Unknown Male Problem MED[facility] ([facility]) Encounters Encounter Providers Location Date Indications Data Source(s ) Outpatient Attender: ZO[facility] GAO [facility] 11/28 12:00:00 PM EDT MED[facility] ([facility]) Outpatient Attender: ZOË GAO 11/28 11:49:00 AM EDT - 11/28/2020 11:49:00 AM EDT [facility] Outpatient Attender: Michelle Jarvis/Stacy/Lonnie/Ariel ndl 11/25/2020 09:30:00 AM EDT MEDENT ([facility] Outpatient Attender: ARIS PATRICIA [facility] 10/09 10:45:00 AM EDT MED[facility] ([facility] Outpatient Attender: Meli GAO [facility] 10/24/2020 10:45:00 AM EDT MEDENT ([facility]) Outpatient Attender: CATHLEEN Jarvis/Stacy/Ang el/Reindl 10/06/2020 11:40:00 AM EDT MEDENT ([facility] ) Outpatient Attender: ZOË GAO 09/06 09:07:00 AM EDT - 09/06/2020 09:07:00 AM EDT [facility] ( GYNANN) [facility] 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 [address] [place] [address] 09/06/2020 12:00:00 AM EDT eCW1 ([facility]) [place] [address] [address] 08/26/2020 12:00:00 AM EDT eCW1 ([facility]) [place] [address] [address] 08/22/2020 12:00:00 AM EDT eCW1 ([facility]) Outpatient Attender: ZOË GAO 08/01 12:22:00 PM EDT - 08/01/2020 12:22:00 PM EDT [facility] Outpatient Attender: ZO[facility] GAO Family [facility] 08/01 12:00:00 PM EDT [facility] ([facility] [place] [address] [address] 07/26/2020 12:00:00 AM EDT eCW1 ([facility]) Outpatient Attender: Meli GAO Main office - [facility] 07/22/2020 08:00:00 AM EDT MEDENT ([facility]) Outpatient Attender: ARIS PATRICIA [facility] Office 07/09 10:45:00 AM EDT MEDENT ([facility] Outpatient Attender: CATHLEEN Jarvis/Stacy/Abe reeves/Reintriny 06/16/2020 08:30:00 AM EDT MED[facility] ([facility]) [place] [address] [address] 06/14/2020 12:00:00 AM EDT eCW1 ([facility]) Outpatient Attender: Michelle Jarvis/Stacy/Lonnie/Ariel ndl 06/13/2020 11:00:00 AM EDT MED[facility] ([facility]) Outpatient Attender: Gregorio Mathews MD Main Office 05/26/2020 11:00:00 AM EDT MEDENT ([facility]) Outpatient Attender: ZOË GAO 05/06 12:29:00 PM EST - 05/06/2020 12:29:00 PM EST [facility] Outpatient Attender: ZOË GAO Family Practice 05/06 11:20:00 AM EST [facility] Visit Attender: Meli GAO [facility] 05/03/2020 07:45:00 AM EST MEDENT ([facility] ) [place] [address] [address] 04/27/2020 12:00:00 AM EST eCW1 [facility] Outpatient Attender: ARIS PATRICIA [facility] Office 04/11 09:45:00 AM EST MED[facility] ([facility] Unknown [address] [facility] [place] [address] 04/11/2020 12:00:00 AM EST eCW1 ([facility]) Unknown [address] [facility] [place] [address] 04/08/2020 12:00:00 AM EST [facility] Unknown [address] [facility] [place] [address] 04/01/2020 12:00:00 AM EST [facility] Unknown [address] [facility] [place] [address] 03/30/2020 12:00:00 AM EST [facility]CW1 [facility] Outpatient [address] [facility] [place] [address] 2020 12:00:00 AM EST [facility]CW[facility]) Outpatient Attender: ZOË GAO 03/25 01:23:00 PM EST - 03/25/2020 01:23:00 PM EST [facility] Outpatient Attender: ZOË GAO Family Practice 03/25 12:20:00 PM EST [facility] Unknown [address] [facility] [place] [address] 03/25/2020 12:00:00 AM EST [facility]CW1 [facility] Outpatient [address] [facility] [place] [address] 03/10/2020 12:00:00 AM EST [facility]CW1 [facility] Outpatient Attender: Mor Braun ED-LABPNP 11:34:00 AM EST - 03/09/2020 11:35:00 AM EST REQUIRED [facility] REQUIRED [facility] Patient discharged. Outpatient Attender: Mor Braun ED-LABPNP 0 10:53:00 AM EST - 03/03/2020 10:54:00 AM EST RETURN TO [facility] RETURN TO [facility] Patient discharged. Emergency Attender: Steve GAO ED-ED 09:05:00 AM EST - 03/03/2020 10:00:00 AM EST ITCHING [facility] ITCHING Patient discharged. [place] [address] [address] 02/29/2020 12:00:00 AM EST [facility]) [place] [address] [address] 02/22/2020 12:00:00 AM EST eCW1 ([facility]) Outpatient [facility] 02/11/2020 03:27:00 PM EST [facility] Outpatient Attender: Mor Braun ED-LABPNP 0 11:54:00 AM EST - 02/11/2020 11:55:00 AM EST NEED TO RETURN TO [facility] NEED TO RETURN TO [facility] Patient discharged. [place] [address] [address] 02/10/2020 12:00:00 AM EST eCW1 ([facility]) Outpatient Attender: ZOË GAO 02/07 11:28:00 AM EST - 02/08/2020 11:28:00 AM EST [facility] Outpatient Attender: ZOË GAO Family Practice 02/07 10:20:00 AM EST [facility] ([facility] Office Visit Attender: Meli GAO [facility] 02/01/2020 07:45:00 AM EST MEDENT ([facility] ) Outpatient Attender: ARIS PATRICIA [facility] Office 01/09 10:00:00 AM EST MEDENT ([facility] Inpatient Attender: SHEILA BURDENOFFAdm itter: SHEILA BURDENOFFReferrer: Meli GAO [id number] 01/11/2020 12:00:00 AM EST - 01/15/2020 03:10:00 PM EST Localization-related (focal) (partial) symptomatic epilepsy and epileptic syndromes with simple partial seizures, not intractable, without status epilepticus [facility] Localization-related (focal) (partial) s ymptomatic epilepsy and epileptic syndromes with simple partial seizures, not intractable, without status epilepticus Patient discharged. Outpatient Attender: Nadine GAO ED-LABPNP 01/10/2020 02:14:00 P M EST PREOP [facility] PREOP Outpatient Attender: Nadine GAO ED-LABPNP 01/06/2020 08:0 0:00 AM EDT PRE OP [facility] PRE OP Outpatient Attender: ZOË GAO 12/28 10:23:00 AM EDT - 12/29/2019 10:23:00 AM EDT [facility] Outpatient Attender: Nadine GAO CPSCAORT-LABPNP 12/29/2019 0 8:00:00 AM EDT COVID SCREENING [facility] COVID SCREENING Outpatient Attender: Meli GAO [facility] 10/30/2019 08:30:00 AM EDT MEDENT ([facility]) Immunizations Vaccine Date Status Description Data Source(s) COVID-19 VACCINE Pfizer 04/05/2020 12:00:00 AM EST completed [facility] Vaccine Series Complete: YESThis Data wa s Submitted to [facility] Via [email or web address]. COVID-19 VACCINE Pfizer 03/15/2020 12:00:00 AM EST completed [facility] Vaccine Series Complete: NOThis Data was Submitted to [facility] Via [email or web address]. INFLUENZA VIRUS VACCINE QUADRIVALENT (6 MOS AN D UP) 01/06/2020 12:00:00 AM EDT completed [facility] Medications Medication Brand Name Start Date Product Form Dose Route Admi nistrative Instructions Pharmacy Instructions Status Indications Reaction Description Data Source(s) buspirone hydrochloride 10 MG Oral Tablet Buspirone HCL 09/20/2020 12:00:00 AM EDT ORAL active MEDENT ([facility]) buspirone hydrochloride 15 MG Oral Tablet Buspirone HCL 09/06/2020 12:00:00 AM EDT ORAL completed MEDENT ([facility]) Clotrimazole 10 MG/ML Topical Cream Clotrimazole 07/19/2020 12:00:00 AM EDT active [facility] ([facility] Ursodiol 300 MG Oral Capsule Ursodiol 06/23/2020 12:00:00 AM EDT ORAL active MEDENT ([facility] ) Ciprofloxacin 500 MG Oral Tablet [Cipro] Cipro 06/23/2020 12:00:00 AM EDT completed MEDENT ([facility], ) aripiprazole 10 MG Oral Tablet Aripiprazole 06/20/2020 12:00:00 AM EDT ORAL active MEDENT ([facility]) Levetiracetam 500 MG Oral Tablet Levetiracetam 06/09/2020 12:00:00 AM EDT ORAL active MEDENT ([facility]) Levetiracetam 750 MG Oral Tablet Levetiracetam 05/11/2020 12:00:00 AM EST ORAL completed MEDENT ([facility]) Azelastine HCl 0.15 % Azelastine HCl 0.15 % 04/27/2020 12:00:00 AM EST 2.0 {sprays_in_each_nostril} active Azelast ine HCl 0.15 % eCW1 ([facility]) Azelastine HCl 0.15 % Azelastine HCl 0.15 % 04/27/2020 12:00:00 AM EST 2.0 {sprays_in_each_nostril} active Azelast ine HCl 0.15 % eCW1 ([facility]) ammonium lactate 120 MG/ML Topical Cream Ammonium Lactate 04/26/2020 12:00:00 AM EST active [facility] ([facility] Levetiracetam 500 MG Oral Tablet Levetiracetam 04/12/2020 12:00:00 AM EST ORAL completed MEDENT ([facility]) Hydroxyzine Hydrochloride 50 MG Oral Tablet Hydroxyzine HCL 03/25/2020 12:00:00 AM EST ORAL active MEDENT ([facility]) Sodium Chloride 0.111 MEQ/ML Nasal [place] Saline Nasal [place] 0.65 % Saline Nasal [place] 0.65 % 03/10/2020 12:00:00 AM EST activ e Saline Nasal [place] 0.65 % eCW1 ([facility]) Sodium Chloride 0.111 MEQ/ML Nasal [place] Saline Nasal [place] 0.65 % Saline Nasal [place] 0.65 % 03/10/2020 12:00:00 AM EST activ e Saline Nasal [place] 0.65 % eCW1 ([facility]) Sodium Chloride 0.111 MEQ/ML Nasal [place] Saline Nasal [place] 0.65 % Saline Nasal [place] 0.65 % 03/10/2020 12:00:00 AM EST activ e Saline Nasal [place] 0.65 % eCW1 ([facility]) Sodium Chloride 0.111 MEQ/ML Nasal [place] Saline Nasal [place] 0.65 % Saline Nasal [place] 0.65 % 03/10/2020 12:00:00 AM EST activ e Saline Nasal [place] 0.65 % eCW1 ([facility]) Sodium Chloride 0.111 MEQ/ML Nasal [place] Saline Nasal [place] 0.65 % Saline Nasal [place] 0.65 % 03/10/2020 12:00:00 AM EST activ e Saline Nasal [place] 0.65 % eCW1 ([facility]) Sodium Chloride 0.111 MEQ/ML Nasal [place] Saline Nasal [place] 0.65 % Saline Nasal [place] 0.65 % 03/10/2020 12:00:00 AM EST activ e Saline Nasal [place] 0.65 % eCW1 ([facility]) Sodium Chloride 0.111 MEQ/ML Nasal [place] Saline Nasal [place] 0.65 % Saline Nasal [place] 0.65 % 03/10/2020 12:00:00 AM EST activ e Saline Nasal [place] 0.65 % eCW1 ([facility]) Sodium Chloride 0.111 MEQ/ML Nasal [place] Saline Nasal [place] 0.65 % Saline Nasal [place] 0.65 % 03/10/2020 12:00:00 AM EST activ e Saline Nasal [place] 0.65 % eCW1 ([facility]) Sodium Chloride 0.111 MEQ/ML Nasal [place] Saline Nasal [place] 0.65 % Saline Nasal [place] 0.65 % 03/10/2020 12:00:00 AM EST activ e Saline Nasal [place] 0.65 % eCW1 ([facility]) Sodium Chloride 0.111 MEQ/ML Nasal [place] Saline Nasal [place] 0.65 % Saline Nasal [place] 0.65 % 03/10/2020 12:00:00 AM EST activ e Saline Nasal [place] 0.65 % eCW1 ([facility]) Sodium Chloride 0.111 MEQ/ML Nasal [place] Saline Nasal [place] 0.65 % Saline Nasal [place] 0.65 % 03/10/2020 12:00:00 AM EST activ e Saline Nasal [place] 0.65 % eCW1 ([facility]) Sodium Chloride 0.111 MEQ/ML Nasal [place] Saline Nasal [place] 0.65 % Saline Nasal [place] 0.65 % 03/10/2020 12:00:00 AM EST activ e Saline Nasal [place] 0.65 % eCW1 ([facility]) Sodium Chloride 0.111 MEQ/ML Nasal [place] Saline Nasal [place] 0.65 % Saline Nasal [place] 0.65 % 03/10/2020 12:00:00 AM EST activ e Saline Nasal [place] 0.65 % eCW1 ([facility]) Sodium Chloride 0.111 MEQ/ML Nasal [place] Saline Nasal [place] 0.65 % Saline Nasal [place] 0.65 % 03/10/2020 12:00:00 AM EST activ e Saline Nasal [place] 0.65 % eCW1 ([facility]) Sodium Chloride 0.111 MEQ/ML Nasal [place] Saline Nasal [place] 0.65 % Saline Nasal [place] 0.65 % 03/10/2020 12:00:00 AM EST activ e Saline Nasal [place] 0.65 % eCW1 ([facility]) Sodium Chloride 0.111 MEQ/ML Nasal [place] Saline Nasal [place] 0.65 % Saline Nasal [place] 0.65 % 03/10/2020 12:00:00 AM EST activ e Saline Nasal [place] 0.65 % eCW1 ([facility]) Sodium Chloride 0.111 MEQ/ML Nasal [place] Saline Nasal [place] 0.65 % Saline Nasal [place] 0.65 % 03/10/2020 12:00:00 AM EST activ e Saline Nasal [place] 0.65 % eCW1 ([facility]) Sodium Chloride 0.111 MEQ/ML Nasal [place] Saline Nasal [place] 0.65 % Saline Nasal [place] 0.65 % 03/10/2020 12:00:00 AM EST activ e Saline Nasal [place] 0.65 % eCW1 ([facility]) Sodium Chloride 0.111 MEQ/ML Nasal [place] Saline Nasal [place] 0.65 % Saline Nasal [place] 0.65 % 03/10/2020 12:00:00 AM EST activ e Saline Nasal [place] 0.65 % eCW1 ([facility]) Sodium Chloride 0.111 MEQ/ML Nasal [place] Saline Nasal [place] 0.65 % Saline Nasal [place] 0.65 % 03/10/2020 12:00:00 AM EST activ e Saline Nasal [place] 0.65 % eCW1 ([facility]) Sodium Chloride 0.111 MEQ/ML Nasal [place] Saline Nasal [place] 0.65 % Saline Nasal [place] 0.65 % 03/10/2020 12:00:00 AM EST activ e Saline Nasal [place] 0.65 % eCW1 ([facility]) Sodium Chloride 0.111 MEQ/ML Nasal [place] Saline Nasal [place] 0.65 % Saline Nasal [place] 0.65 % 03/10/2020 12:00:00 AM EST activ e Saline Nasal [place] 0.65 % eCW1 ([facility]) 20 mg 03/03/2020 12:00:00 AM EST tablet 8 TAKE TWO TABLETS BY MOUTH ONCE DAILY TAKE TWO TABLETS BY MOUTH ONCE DAILY SOLD: 03/03/2020 [facility] Fluticasone Propionate 50 MCG/ACT Fluticasone Propionate 50 MCG/ACT 02/22/2020 12:00:00 AM EST 1.0 {spray_in_each_nostril} acti ve Fluticasone Propionate 50 MCG/ACT eCW1 ([facility]) Fluticasone Propionate 50 MCG/ACT Fluticasone Propionate 50 MCG/ACT 02/22/2020 12:00:00 AM EST 1.0 {spray_in_each_nostril} acti ve Fluticasone Propionate 50 MCG/ACT eCW1 ([facility]) Divalproex Sodium 125 MG Delayed Release Oral Capsule [Depakote] Depakote Patricioles 02/08/2020 12:00:00 AM EST completed MEDENT ([facility]) Divalproex Sodium 125 MG Delayed Release Oral Capsule Divalp roex Sodium 02/08/2020 12:00:00 AM EST ORAL active MEDENT ([facility]) 24 HR Divalproex Sodium 500 MG Extended Release Oral T ablet [Depakote] Depakote ER 02/01/2020 12:00:00 AM EST ORAL completed MEDENT ([facility]) Hydroxyzine Hydrochloride 50 MG Oral Tablet hydrOXYzin e (ATARAX) tablet 25 mg hydrOXYzine (ATARAX) tablet 25 mg 01/14/2020 06:15:00 PM EST 25 mg Oral completed 25 mg, Oral, Once, Sat01/14/20 a t 1815, For 1 dose [facility] Medication administered onsite lamotrigine 100 MG Oral Tablet lamoTRIgine (LaMICtal) tablet 400 mg lamoTRIgine (LaMICtal) tablet 400 mg 01/14/2020 11:30:00 AM EST 400 mg Oral active 400 mg, Oral, 2 Times Daily, First dose on Sat01/14/20 at 1130, For 30 days [facility] Medication administered onsite lamotrigine 100 MG Oral Tablet lamoTRIgine (LaMICtal) tablet 200 mg lamoTRIgine (LaMICtal) tablet 200 mg 01/13/2020 09:00:00 PM EST 200 mg Oral active 200 mg, Oral, Once, Sat01/13/20 at 2100, For 1 dose [facility] Medication administered onsite diazePAM (VALIUM) injection 5 mg [id number] 01/13/2020 12:54:25 PM EST 5 mg Intravenous aborted 5 mg, Intrave nous, Once PRN, Give for 1st GTC, Starting Sat01/13/20 at 1254, For 4 days
Give indicated order dose for 1st GTC
[facility] Medication administered onsite lamotrigine 100 MG Oral Tablet lamoTRIgine (LaMICtal) tablet 200 mg lamoTRIgine (LaMICtal) tablet 200 mg 01/12/2020 09:00:00 PM EST 200 mg Oral active 200 mg, Oral, 2 Times Daily, First dose (after last reorder) on Sat01/12/20 at 2100, For 1 dose [facility] Medication administered onsite lamotrigine 100 MG Oral Tablet lamoTRIgine (LaMICtal) tablet 200 mg lamoTRIgine (LaMICtal) tablet 200 mg 01/12/2020 01:00:00 PM EST 200 mg Oral active 200 mg, Oral, Once, Sat01/12/20 at 1300, For 1 dose [facility] Medication administered onsite lamotrigine 100 MG Oral Tablet lamoTRIgine (LaMICtal) tablet 200 mg lamoTRIgine (LaMICtal) tablet 200 mg 01/12/2020 10:00:00 AM EST 200 mg Oral active 200 mg, Oral, 2 Times Daily, First dose (after last modification) on Sat01/12/20 at 1000, For 1 dose [facility] Medication administered onsite drospirenone 3 MG / Ethinyl Estradiol 0. 02 MG Oral Tablet drospirenone-ethinyl estradiol (GIANVI) 3-0.02 MG per tablet 1 tablet drospirenone-ethinyl estradiol (GIANVI) 3-0.02 MG per tablet 1 tablet 01/12/2020 09:00:00 AM EST 1 {tbl} Oral active 1 tablet, Oral , Daily Standard, First dose on Sat01/12/20 at 0900, For 30 days
Pharmacy does not stock Gianvi. Patient's Own medication being used for this order
[facility] Medication administered onsite cetirizine hydrochloride 10 MG Oral Tablet cetirizine (ZYRTEC) tablet 10 mg cetirizine (ZYRTEC) tablet 10 mg 01/12/2020 09:00:00 AM EST 10 mg Oral active 10 mg, Oral, Daily Standard, First dose on Sat01/12/20 at 0900, For 30 days [facility] Medication administered onsite Cholecalciferol 1000 UNT Oral Tablet vit oconnell D3 (CHOLECALCIFEROL) tablet 2,000 Units vitamin D3 (CHOLECALCIFEROL) tablet 2,000 Units 2019 09:00:00 AM EST 2000 U Oral active 2,000 Un its, Oral, Daily Standard, First dose on Sat01/12/20 at 0900, For 20 days
25 mcg vitamin D3 = 1,000 international units vitamin D3.
[facility] Medication administered onsite 24 HR venlafaxine 37.5 MG Extended Relea se Oral Capsule venlafaxine (EFFEXOR-XR) 24 hr capsule 37.5 mg venlafaxine (EFFEXOR-XR) 24 hr capsule 37.5 mg 09:00:00 AM EST 37.5 mg Oral active 37.5 mg, Oral, Daily Standard, First dose on Sat01/12/20 at 0900, For 30 days
Do not crush or chew To be given with venlafaxine XR 75 mg to get 112.5 mg
[facility] Medication administered onsite 24 HR venlafaxine 75 MG Extended Release Oral Capsule venlafaxine (EFFEXOR-XR) 24 hr capsule 75 mg venlafaxine (EFFEXOR-XR) 24 hr capsule 75 mg 0 09:00:00 AM EST 75 mg Oral active 75 mg, Oral, Daily Standard, First dose on Sat01/12/20 at 0900, For 30 days
Do not crush or chew To be given with venlafaxine XR 37.5 mg to get 112.5 mg
[facility] Medication administered onsite lamotrigine 100 MG Oral Tablet lamoTRIgine (LaMICtal) tablet 400 mg lamoTRIgine (LaMICtal) tablet 400 mg 01/11/2020 09:00:00 PM EST 400 mg Oral active 400 mg, Oral, 2 Times Daily, First dose on Sat01/11/20 at 2100, For 1 dose [facility] Medication administered onsite buspirone hydrochloride 10 MG Oral Tablet busPIRone (B USPAR) tablet 10 mg busPIRone (BUSPAR) tablet 10 mg 01/11/2020 09:00:00 PM EST 10 mg O ral active 10 mg, Oral, 2 Times Daily, First dose on Sat01/11/20 at 2100, For 30 days [facility] Medication administered onsite aripiprazole 10 MG Oral Tablet ARIPiprazole (ABILIFY) tablet 10 mg ARIPiprazole (ABILIFY) tablet 10 mg 01/11/2020 09:00:00 PM EST 10 mg Oral active 10 mg, Oral, 2 Times Daily, First dose on Sat01/11/20 at 2100, For 30 days [facility] Medication administered onsite Hydroxyzine Hydrochloride 50 MG Oral Tablet hydrOXYzin e (ATARAX) tablet 25 mg hydrOXYzine (ATARAX) tablet 25 mg 01/11/2020 04:00:00 PM EST 25 mg Oral active 25 mg, Oral, Three Times Daily Standard, First dose (after last modification) on Sat01/11/20 at 1600, For 30 days [facility] Medication administered onsite hypromellose 0.003 MG/MG Ophthalmic Gel hypromellose (GENTEAL) 0.3 % ophthalmic gel 1 drop hypromellose (GENTEAL) 0.3 % ophthalmic gel 1 drop 04/2019 10:45:00 AM EST 1 [drp] Both Eyes active 1 drop, Both Eyes, 2 Times Daily, First dose (after last modification) on Sat01/11/20 at 1045, For 30 days [facility] Medication administered onsite sodium chloride (preservative [...] 0753, For 30 days [Order 6 End] [facility] Medication administered onsite senna tablet 2 [...] on the third day.
[Order 2 End] [facility] Medication administered onsite Acetaminophen 325 MG [...] mg from all sources in 24 hours.
[facility] Medication administered onsite Ondansetron 4 MG Oral Tablet ondansetron (ZOFRAN) tabl et 4 mg ondansetron (ZOFRAN) tablet 4 mg 01/11/2020 07:53:09 AM EST 4 mg Oral active 4 mg, Oral, Every 8 hours PRN, Nausea, Starting Sat01/11/20 at 0753, For 30 days [facility] Medication administered onsite Magnesium Hydroxide 80 MG/ML Oral Suspen mary magnesium hydroxide (MILK OF MAGNESIA) 400 MG/5ML suspension 45 mL magnesium hydroxide (MILK OF MAGNESIA) 4 00 MG/5ML suspension 45 mL 01/11/2020 07:53:09 AM EST 45 mL Oral active 45 mL, Oral, Nightly PRN, Constipation, Starting Sat01/11/20 at 0753, For 30 days
If serum creatinine > 2 notify provider before administering.
[facility] Medication administered onsite alginic acid 200 MG / Calcium Carbonate 80 MG / magnesium trisilicate 20 MG / Sodium Bicarbonate 70 MG Oral Tablet calcium carbonate (TUMS) chewable tablet 500 mg calcium carbonate (TUMS) chewable tablet 500 mg 2019 07:53:09 AM EST 500 mg Oral active 500 mg, Oral, Daily PRN, Indigestion, Heartburn, Starting Sat01/11/20 at 0753, For 30 days [facility] Medication administered onsite Bisacodyl 10 MG Rectal Suppository bisacodyl (DULCOLAX ) suppository 10 mg bisacodyl (DULCOLAX) suppository 10 mg 01/11/2020 07:53:09 AM EST 10 mg Rectal active 10 mg, Rectal, Every 72 hours PRN, Constipation, Starting Sat01/11/20 at 0753, For 30 days
Hold if patient has had a BM in the past 2 days.
[facility] Medication administered onsite Ibuprofen 200 MG Oral Tablet ibuprofen (MOTRIN) tablet 200 mg ibuprofen (MOTRIN) tablet 200 mg 01/11/2020 07:53:09 AM EST 200 mg Oral acti ve 200 mg, Oral, Every 6 hours PRN, Mild Pain (Pain Scale Score 1-3), Fever, Starting Sat01/11/20 at 0753, For 30 days
Take with food.
[facility] Medication administered onsite Diphenhydramine Hydrochloride 25 MG Oral Capsule diphenhydrAMINE (BENADRYL) capsule 25 mg diphenhydrAMINE (BENADRYL) capsule 25 mg 01/11/2020 07 :53:09 AM EST 25 mg Oral active 25 mg, O ral, Every 6 hours PRN, Itching, Starting Sat01/11/20 at 0753, For 30 days [facility] Medication administered onsite drospirenone 3 MG / Ethinyl Estradiol 0. 02 MG Oral Tablet Drospirenone-Ethinyl Estradiol 3-0.02 MG Oral Tablet (GIANVI) Drospirenone-Ethinyl Estradiol 3-0.02 MG Oral Tablet (GIANVI) 01/04/2020 12:00:00 AM EDT 1 {tbl} Oral active Take 1 [facility] Oral Tablet ARIPiprazole 20 MG Oral Tablet (ABILIFY) ARIPiprazole 20 MG Oral Tablet (ABILIFY) 12/27/2019 12:00:00 AM EDT 10 mg Oral active Take 10 mg by mouth Two Times Daily [facility] 24 HR venlafaxine 37.5 MG Extended Relea se Oral Capsule Venlafaxine HCl ER 37.5 MG Oral Capsule Extended Release 24 Hour (EFFEXOR-XR) Venlafaxine HCl ER 37.5 MG Oral Capsule Extended Release 24 Hour (EFFEXOR-XR) 12/27/2019 12:00:00 AM EDT 37.5 mg Oral active Take 37.5 mg by mouth daily Take with 75 mg capsule. NPW=638.5 mg. [facility] lamotrigine 200 MG Oral Tablet lamoTRIgine 200 MG Oral Tablet (LaMICtal) lamoTRIgine 200 MG Oral Tablet (LaMICtal) 12/27/2019 12:00:00 AM EDT 400 mg Oral active Take 400 mg by mouth Two Times Daily [facility] Hydroxyzine Hydrochloride 25 MG Oral Tab let hydrOXYzine HCl 25 MG Oral Tablet (ATARAX) hydrOXYzine HCl 25 MG Oral Tablet (ATARAX) 12/27/2019 12:00: 00 AM EDT 25 mg Oral active Take 25 mg by mo uth Three times daily [facility] buspirone hydrochloride 10 MG Oral Table t busPIRone HCl 10 MG Oral Tablet (BUSPAR) busPIRone HCl 10 MG Oral Tablet (BUSPAR) 12/23/2019 12:00:00 AM EDT 10 mg Oral active Take 10 mg by mouth Two Times Daily [facility] buspirone hydrochloride 10 MG Oral Tablet Buspirone HCL 12/23/2019 12:00:00 AM EDT ORAL active [facility] ([facility]) 24 HR venlafaxine 75 MG Extended Release Oral Capsule Venlafaxine HCl ER 75 MG Oral Capsule Extended Release 24 Hour (EFFEXOR-XR) Venlafaxine HCl ER 75 MG Oral Capsule Extended Release 24 Hour (EFFEXOR-XR) 12/20/2019 12:00:00 AM EDT 75 mg Oral active Take 75 mg by mouth daily Take with 37.5 mg capsule. JOZ=331.5 mg. [facility] aripiprazole 20 MG Oral Tablet Aripiprazole 10/26/2019 12:00:00 AM EDT ORAL active [facility] ([facility]) Insurance Providers Payer name Policy type / Coverage type Policy ID Covered libertarian ID Covered libertarian's relationship to delgado Policy Delgado Plan Information Cigna/MVP Medigap Part B [id number] Family Dependent [id number] BS [place] Medigap Part B [id number] Family Dependent V [id number] BCBS JAYDIANDRA SUDHA PPO 302/307 [id number] [id number] Medicare [place] Primary [id number] Self 1 [id number] MEDICARE [id number] SP [id number] MEDICARE A [id number] Self [id number] [place] Med[place] Part B [id number] 37467.0 Self [id number] MEDICAID [id number] SP [id number] MEDICARE [id number] SP [id number] MEDICAID M [id number] Self [id number] MEDICAID [id number] [facility] [id number] Self [id number] Medicare Part B Medicare Primary [id number] Self [id number] Medicaid Medicaid [id number] Self [id number] Medicare Medicare Primary [id number] Self [id number] ANSI-Medicaid [id number] ANS-Medicare Part B [id number] ANSI-Commercial [id number] ANSI-Medicaid [id number] ANSI-Commercial [id number] [place]-Med[place] Part B [id number] Medicaid [facility] Part B [id number] 40.0 Self [id number] Medicare Part B Medicare Primary [id number] Self [id number] Medicaid Medicaid [id number] S elf [id number] Medicare Medicare Primary [id number]. [id number] Self [id number] ANSI-Medicaid [id number] ANSI-Medicare Part B [id number] ANSI-Commercial [id number] ANSI-Medicare Part B [id number] ANSI-Commercial [id number] ANSI-Medicaid [id number] ANSI-Medicare Part B [id number] ANSI-Commercial [id number] ANSI-Medicaid [id number] Medicaid [facility] Part B [id number] 40.0 Self [id number] Medicare Part B Medicare Primary [id number] [id number] Self [id number] *NOTFORTODAYSVISIT* SP *NOTFORTODAYSVISIT* Medicaid Medicaid [id number] [id number] S elf [id number] Medicare Medicare Primary [id number] 2.16.840.1.923160.3.227. [id number] Self [id number] ANSI-Medicaid [id number] ANSI-Medicare Part B [id number] ANSI-Commercial [id number] ANSI-Commercial [id number]-[id number] [id number] ANSI-Medicaid [id number] ANSI-Medicare Part B [id number] ANSI-Commercial [id number] ANSI-Medicaid [id number] ANSI-Medicare Part B [id number] ANSI-Medicaid [id number] ANSI-Medicare Part B [id number] ANSI-Commercial [id number] Medicaid [facility] Part B [id number] 40.0 Self [id number] Medicare Part B Medicare Primary [id number] 2.16.840.1.669678.3.227.99.1037.02957.0 Self [id number] MEDICARE [id number] ANSI-Commercial [id number] ANSI-Medicare Part B [id number] ANSI-Medicaid [id number] ANSI-Commercial [id number] ANSI-Medicare Part B [id number] ANSI-Medicaid [id number] ANSI-Commercial [id number] ANSI-Medicaid [id number] ANSI-Medicare Part B [id number] ANSI-Medicaid [id number] ANSI-Medicare Part B [id number] ANSI-Commercial [id number] ANSI-Medicare Part B [id number] ANSI-Commercial [id number] ANSI-Medicaid [id number] Medicaid Medigap Part B [id number] 40.0 Self [id number] Medicare Part B Medicare Primary [id number]..[id number] Self [id number] ANSI-Medicaid [id number] ANSI-Commercial [id number] ANSI-Medicare Part B [id number] ANSI-Commercial [id number] ANSI-Medicaid [id number] ANSI-Medicare Part B [id number] Medicaid Medigap Part B [id number] 40.0 Self [id number] Medicare Part B Medicare Primary [id number]..[id number]552.0 Self [id number] Medicaid Medigap Part B [id number] 40.0 Self [id number] Medicare Part B Medicare Primary [id number]9.1037.72533.0 Self [id number] Medicaid Medigap Part B [id number] 40.0 Self [id number] Medicare Part B Medicare Primary [id number] Self [id number] Medicaid Medigap Part B [id number] 40.0 Self [id number] Medicare Part B Medicare Primary [id number] 2.840.1.492709.3.227.99.1037.28941.0 Self [id number] Medicaid Medigap Part B [id number] 40.0 Self [id number] Medicare Part B Medicare Primary [id number]037.63810.0 Self [id number] Medicaid Medigap Part B [id number] [id number] 40.0 Self [id number] Medicare Part B Medicare Primary [id number] Self [id number] Medicaid Medigap Part B [id number] 40.0 Self [id number] Medicare Part B Medicare Primary [id number] Self [id number] Medicaid Medigap Part B [id number] 40.0 Self [id number] Medicare Part B Medicare Primary [id number] Self [id number] MEDICAID [id number] SP [id number] Medicare Part B Medicare Primary [id number] Self Medicaid Medicaid 1 [id number] Self 1 1 Medicare Medicare Primary [id number] Self MEDICARE P [id number] S [id number] MEDICAID -O/P [id number] [place] -O/P [id number] 19 [id number] MEDICARE -O/P [id number] MEDICAID -CLINIC [id number] [place] - CLINIC [id number] 19 [id number] MEDICARE - CLINIC [id number] 18 [id number] [facility] MEDICAID [id number] SP [id number] M [id number] MEDICARE [id number] SP [id number] MEDICAID CO [id number] 18 [id number] MEDICARE CO [id number] 18 [id number] [place] [id number] SP [id number] MEDICARE C [id number] S [id number] MEDICAID M [id number] S [id number] MEDICAID [id number] S [id number] MEDICARE [id number] S [id number] MEDICAID [id number] SP [id number] Problems, Conditions, and Diagnoses Code Display Name Description Problem Type Effective Dates Data Source(s) F419 Anxiety disorder, unspecified Anxiety disorder, unspec ified Diagnosis 08/01/2020 12:22:00 PM EDT [facility] F79 Unspecified intellectual disabilities Unspecifie d intellectual disabilities Diagnosis 08/01/2020 12:22:00 PM EDT [facility] F840 Autistic disorder Autistic disorder Diagnosis 08/01/2020 12:22:00 PM EDT [facility] 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, not intractable, without status epilepticus Localization-related (focal) (partial) s ymptomatic epilepsy and epileptic syndromes with simple partial seizures, not intractable, without status epilepticus Diagnosis 01/15/2020 07:48:28 PM [facility] Localization-related epilepsy Localization-related epi lepsy Diagnosis 01/11/2020 07:35:00 AM [facility] r51 r51 Diagnosis 01/11/2020 07:35:00 AM [facility] r42 r42 Diagnosis 01/11/2020 07:35:00 AM [facility] g40.89 g40.89 Diagnosis 01/11/2020 07:35:00 AM [facility] g40.009 g40.009 Diagnosis 01/11/2020 07:35:00 AM [facility] Z20.828 Contact with and (suspected) exposure to other viral communicable diseases CONTACT W AND EXPOSURE TO OTH VIRAL COMMUNICABLE DISEASES Di agnosis 01/06/2020 08:00:00 AM EDT [facility] M72.2 Plantar fascial fibromatosis Plantar fascial fibromato sis Problem 10/25/2020 12:00:00 AM EDT [facility] ([facility] [id number] Liver enzymes abnormal Liver enzymes abnormal Problem 05/26/2020 12:00:00 AM EDT [facility] ([facility]) J30.9 Allergic rhinitis Allergic sinusitis Problem 04/27/2020 12:00:00 AM EST eCW1 ([facility]) Surgeries/Procedures Procedure Description Date Indications Data Source(s) OFFICE OUTPATIENT VISIT 25 MINUTES 11/28/2020 12:00:00 AM EDT [facility] ([facility]) OFFICE OUTPATIENT VISIT 25 MINUTES 11/25/2020 12:00:00 AM EDT [facility] ([facility], ) Spirometry 11/10/2020 12:00:00 AM EDT [facility] ([facility], ) Plethysmography Determination Lung Volumes & Per Airway Resi st 11/10/2020 12:00:00 AM EDT [facility] ([facility]) OFFICE OUTPATIENT VISIT 10 MINUTES 10/25/2020 12:00:00 AM EDT [facility] ([facility] OFFICE OUTPATIENT VISIT 25 MINUTES 10/24/2020 12:00:00 AM EDT [facility] ([facility]) OFFICE OUTPATIENT VISIT 25 MINUTES 10/06/2020 12:00:00 AM EDT [facility] ([facility]) OFFICE OUTPATIENT VISIT 25 MINUTES 09/06/2020 12:00:00 AM EDT [facility] ([facility]) Ercp For Removal Stone(S) Biliary/Pancreatic Ducts 08/19/2020 12:00:00 AM EDT [facility] ([facility]) Ercp Removal & Exchange Stents Biliary/Pancreatic Duct 08/19/2020 12:00:00 AM EDT [facility] ([facility]) ENDOSCOPIC CATHJ BILIARY DUCTAL SYSTEM RS&I 08/19/2020 12:00:00 AM EDT [facility] ([facility]) OFFICE OUTPATIENT VISIT 25 MINUTES 08/01/2020 12:00:00 AM EDT [facility] ([facility]) OFFICE OUTPATIENT VISIT 25 MINUTES 07/22/2020 12:00:00 AM EDT [facility] ([facility]) OFFICE OUTPATIENT VISIT 10 MINUTES 07/19/2020 12:00:00 AM EDT [facility] ([facility] Ercp For Removal Stone(S) Biliary/Pancreatic Ducts 06/23/2020 12:00:00 AM EDT [facility] ([facility]) Ercp Removal & Exchange Stents Biliary/Pancreatic Duct 06/23/2020 12:00:00 AM EDT [facility] ([facility]) ENDOSCOPIC CATHJ BILIARY DUCTAL SYSTEM RS&I 06/23/2020 12:00:00 AM EDT [facility] ([facility]) OFFICE OUTPATIENT NEW 45 MINUTES 06/16/2020 12:00:00 A M EDT [facility] ([facility]) Bronchospasm Evaluation 06/13/2020 12:00:00 AM EDT [facility] ([facility]) Plethysmography Determination Lung Volumes & Per Airway Resi st 06/13/2020 12:00:00 AM EDT [facility] ([facility] ) DIFFUSING CAPACITY 06/13/2020 12:00:00 AM EDT [facility] ([facility], ) OFFICE OUTPATIENT VISIT 25 MINUTES 06/13/2020 12:00:00 AM EDT [facility] ([facility], ) PHYSICIAN TELEPHONE EVALUATION 5-10 MIN 05/03/2020 12: 00:00 AM EST [facility] ([facility], ) EEG VIDEO MONITORING <td>EEG VIDEO MONITORING</td ><td>Routine</td><td>01/15/2020 3:10 PM EST</td><td></td><td></td> 01/15/2020 03:10:00 PM [facility] LAMOTRIGINE <td>LAMOTRIGINE</td><td>Rout ine</td><td>01/13/2020 5:41 AM EST</td><td></td><td> </td> 01/13/2020 05:41:00 AM [facility] LAMOTRIGINE <td>LAMOTRIGINE</td><td>Rout ine</td><td>01/11/2020 12:47 PM EST</td><td></td><td> </td> 01/11/2020 12:47:00 PM [facility] QUANTITATION DRUG NOT ELSEWHERE SPECIFIED <td>LAMOTRIGINE</td><td>Routine</td><td>01/11/2020 11:48 AM EST</td><td></td><td> </td> 01/11/2020 11:48:00 AM [facility] GONADOTROPIN CHORIONIC QUANTITATIVE <td>BETA HCG, QUANT</td><td>Routine</td><td>01/11/2020 11:43 AM EST</td><td></td><td> </td> 01/11/2020 11:43:00 AM [facility] Results ID Date Data Source [id number] 12/01/2020 03:27:00 AM EDT [facility] Name Value Range Interpretation Code Description Data Mera rce(s) Supporting Document(s) SARS-CoV-2 (COVID 19) NEGATIVE - SARS-CoV-2 (COVID19) [facility] This lab was ordered by [facility] a nd reported by [facility]. ID Date Data Source [id number] 11/08/2020 11:45:00 AM EDT [facility] ([facility], ) Name Value Range Interpretation Code Description Data Mera rce(s) Supporting Document(s) Levetiracetam [Mass/volume] in Serum or Plasma 12.6 ug/mL 10.0-40.0 [facility] ([facility], ) This test was developed and its performa nce characteristics determined by [facility]. It has not been cleared or approved by the Food and Drug Administration. Lamotrigine [Mass/volume] in Serum or Plasma 12.1 ug/mL 2.0-20.0 [facility] ([facility], ) Detection Limit = 1.0 Performed at: [facility] [address] [id number] [address] Roof Fitter: Maida Weber MD, Phone: [phone] ID Date Data Source [id number] 11/08/2020 11:45:00 AM EDT [facility] ([facility], ) Name Value Range Interpretation Code Description Data Mera rce(s) Supporting Document(s) Glucose, Fasting 69 mg/dL 70-100 [facility] ([facility], ) Blood Urea Nitrogen 13 mg/dL 7-18 [facility] ([facility], ) Creatinine For GFR 0.80 mg/dL 0.55-1.30 [facility] ([facility], ) Glomerular Filtration Rate Laboratory test result [facility] ([facility], ) <content>Units are mL/min/1.73 m2</content>
<content></content>
<content>Chronic Kidney Disease Staging per NKF:</content>
<content></content>
<content>Stage I & II GFR >=60 Normal to Mildly Decreased</content>
<content>Stage III GFR 30- 59 Moderately Decreased</content>
<content>Stage IV GFR 15-29 Severely Decreased</content>
<content>Stage V GFR <15 Very Little GFR Left</content>
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
<content></content> Sodium Level 139 meq/L 136-145 [facility] ([facility], ) Chloride Level 106 meq/L 98-107 [facility] ([facility]) Potassium Serum 5.0 meq/L 3.5-5.1 [facility] ([facility]) Anion Gap 5 meq/L 8-16 [facility] ([facility]) Carbon Dioxide Level 28 meq/L 21-32 [facility] ([facility]) Calcium Level 9.7 mg/dL 8.5-10.1 [facility] ([facility]) Ast/Sgot 15 U/L 7-37 [facility] ([facility]) Alt/SGPT 26 U/L 12-78 [facility] ([facility]) Bilirubin,Total 0.4 mg/dL 0.2-1.0 [facility] ([facility]) Alkaline Phosphatase 206 U/L 45-117 [facility] ([facility]) Albumin 3.8 GM/DL 3.2-5.2 [facility] ([facility]) Total Protein 7.3 GM/DL 6.4-8.2 [facility] ([facility]) Albumin/Globulin Ratio 1.1 1.2-2.2 [facility] ([facility]) ID Date Data Source [id number] 11/08/2020 11:45:00 AM EDT [facility] ([facility]) Name Value Range Interpretation Code Description Data Mera rce(s) Supporting Document(s) White Blood Count 8.3 10 4.0-10.0 MEDENT ([facility], ) Red Blood Count 5.09 10 4.00-5.40 MEDENT ([facility]) Hemoglobin 13.7 g/dL 12.0-15.5 MEDENT ([facility]) Hematocrit 43.1 % 36.0-47.0 MED[facility] ([facility]) Mean Corpuscular HGB Conc 31.8 g/dL 32.0-36.5 MEDENT ([facility]) Mean Corpuscular Hemoglobin 26.9 pg 27.0-33.0 MED[facility] ([facility]) Mean Corpuscular Volume 84.7 fl 80.0-96.0 M EDENT ([facility]) Platelet Count, Automated 332 10 150-450 MEDENT ([facility]) Red Cell Distribution Width 12.8 % 11.5-14.5 MED[facility] ([facility]) Neutrophils % 76.8 % 36.0-66.0 MED[facility] ([facility]) Lymph % 12.4 % 24.0-44.0 MED[facility] ([facility]) [place] % 7.8 % 2.0-8.0 MED[facility] ([facility]) Eos % 1.8 % 0.0-3.0 [facility] ([facility]) Immature Granulocyte % 0[facility]6 % 0[facility] Baso % 0.6 % 0.0-1.0 MED[facility] ([facility]) Nucleated Red Blood Cell % 0.0 % 0-0 MED ENT ([facility]) Neutrophils # 6.3 10 1.5-8.5 MED[facility] ([facility]) Bulloch # 0.6 10 0.0-0.8 MED[facility] ([facility]) Lymph # 1.0 10 1.5-5.0 MED[facility] ([facility]) Eos # 0.2 10 0.0-0.5 MED[facility] ([facility]) Baso # 0.1 10 0.0-0.2 [facility] ([facility]) ID Date Data Source [id number] 09/19/2020 08:33:00 AM EDT MEDENT ([facility]) Name Value Range Interpretation Code Description Data Mera rce(s) Supporting Document(s) Gamma glutamyl transferase [Enzymatic activity/volume] in Serum or Plasma 73 U/L 5-55 Above high normal MEDENT ([facility], ) <content>note:<nlbl:demographic_changed> </content>
<content></content> ID Date Data Source [id number] 09/19/2020 08:33:00 AM EDT MEDENT ([facility], ) Name Value Range Interpretation Code Description Data Mera rce(s) Supporting Document(s) Ast/Sgot 15 U/L 7-37 Normal (applies to non-numeric resul ts) MED[facility] ([facility], ) Alt/SGPT 22 U/L 12-78 Normal (applies to non-numeric resul ts) MED[facility] ([facility]) Alkaline Phosphatase 183 U/L 45-117 Above high normal [facility] ([facility]) Bilirubin,Total 0.6 mg/dL 0.2-1.0 Normal (applies to non-numeric results) [facility] ([facility]) Albumin 3.5 GM/DL 3.2-5.2 Normal (applies to non-numeric resul ts) [facility] ([facility]) Bilirubin,Direct 0.2 mg/dL 0.0-0.2 Normal (applies to non-numeric results) [facility] ([facility]) Total Protein 6.8 GM/DL 6.4-8.2 Normal (applies to non-numeric re sults) [facility] ([facility]) Albumin/Globulin Ratio 1.1 1.2-2.2 Below low normal MED[facility] ([facility]) ID Date Data Source [id number] 09/19/2020 08:33:00 AM EDT [facility] Name Value Range Interpretation Code Description Data Mera rce(s) Supporting Document(s) White Blood Count 5.2 10 4.0-10.0 Normal (applies to non-numeri c results) [facility] ([facility]) Hemoglobin 13.1 g/dL 12.0-15.5 Normal (applies to non-numeric resul ts) [facility] ([facility]) Red Blood Count 4.88 10 4.00-5.40 Normal (applies to non-numeric results) [facility] ([facility], ) Mean Corpuscular Hemoglobin 26.8 pg 27.0-33.0 Below low normal MED[facility] ([facility]) Mean Corpuscular Volume 84.4 fl 80.0-96.0 Normal ( applies to non-numeric results) [facility] ([facility]) Hematocrit 41.2 % 36.0-47.0 Normal (applies to non-numeric resul ts) [facility] ([facility]) Mean Corpuscular HGB Conc 31.8 g/dL 32.0-36.5 Below low normal [facility] ([facility]) Platelet Count, Automated 248 10 150-450 Normal (applies to non-numeric results) [facility] ([facility]) Red Cell Distribution Width 13.2 % 11.5-14.5 Norm al (applies to non-numeric results) [facility] ([facility]) Neutrophils % 73.7 % 36.0-66.0 Above high normal MEDE NT ([facility]) Lymph % 12.9 % 24.0-44.0 Below low normal [facility] ( [facility]) Bull[place] % 8.7 % 2.0-8.0 Above high normal [facility] ([facility]) Eos % 3.3 % 0.0-3.0 Above high normal MED[facility] ([facility]) Baso % 0.8 % 0.0-1.0 Normal (applies to non-numeric resul ts) [facility] ([facility]) Immature Granulocyte % 0.6 % 0-3.0 Normal (applies to non-n umeric results) [facility] ([facility]) Lymph # 0.7 10 1.5-5.0 Below low normal MED[facility] ( [facility]) Neutrophils # 3.8 10 1.5-8.5 Normal (applies to non-numeric re sults) [facility] ([facility]) Nucleated Red Blood Cell % 0.0 % 0-0 Normal (applies to n on-numeric results) [facility] ([facility]) Eos # 0.2 10 0.0-0.5 Normal (applies to non-numeric resul ts) [facility]) Bulloch # 0.5 10 0.0-0.8 Normal (applies to non-numeric resul ts) [facility]) Baso # 0.0 10 0.0-0.2 Normal (applies to non-numeric resul ts) [facility]) ID Date Data Source [id number] 08/19/2020 05:03:00 AM EDT [facility]) Name Value Range Interpretation Code Description Data Mera rce(s) Supporting Document(s) Microscopic observation [Identifier] in Unspecified specimen by Non- gynecological cytology method Laboratory test result [facility]) SPECIMEN: Common bile duct br ushing [place] in vial received SPECIMEN ADEQUACY: Satisfactory for evaluation CATEGORIZATION: No Malignancy identified DESCRIPTIONS: Reactive ductal cells noted. COMMENTS: 08/22/2020 - 742 Signed COLEEN BRAVO(ASCP) 08/22/2020 0743 (Prelim) Signed LEAH JIMENEZ MD 08/22/2020 0911 ID Date Data Source [id number] 08/18/2020 09:05:00 AM EDT [facility]) Name Value Range Interpretation Code Description Data Mera rce(s) Supporting Document(s) Creatinine For GFR 0.77 mg/dL 0.55-1.30 Normal (applies to non -numeric results) [facility] ([facility]) Glomerular Filtration Rate Laboratory test result Normal (applies to non- numeric results) [facility]) <content>Units are mL/min/1.73 m2</content>
<content></content>
<content>Chronic Kidney Disease Staging per NKF:</content>
<content></content>
<content>Stage I & II GFR >=60 Normal to Mildly Decreased</content>
<content>Stage III GFR 30- 59 Moderately Decreased</content>
<content>Stage IV GFR 15-29 Severely Decreased</content>
<content>Stage V GFR <15 Very Little GFR Left</content>
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
<content></content> ID Date Data Source [id number] 08/18/2020 09:05:00 AM EDT [facility]) Name Value Range Interpretation Code Description Data Mera rce(s) Supporting Document(s) Urea nitrogen [Mass/volume] in Serum or Plasma 12 mg/dL 7 -18 Normal (applies to non-numeric results) [facility]) <content>note:<nlbl:demographic_changed> </content>
<content></content> ID Date Data Source [id number] 08/18/2020 09:05:00 AM EDT [facility]) Name Value Range Interpretation Code Description Data Mera rce(s) Supporting Document(s) Inr 0.93 Normal (applies to non-numeric resul ts) [facility] ([facility]) THERAPUTIC HUMAN INR VALUES INDICATIONS NORMAL RANGES PROPHYLAXIS/TREATMENT OF: VENOUS THROMBOSIS 2.0-3.0 PULMONARY EMBOLISM 2.0-3.0 PREVENTION OF SYSTEMIC EMBOLISM FROM: TISSUE HEART VALVES 2.0-3.0 ACUTE MYOCARDIAL INFARCTION 2.0-3.0 VALVULAR HEART DISEASE 2.0-3.0 ATRIAL FIBRILLATION 2.0-3.0 MECHANICAL VALVES(HIGH RISK) 2.5-3.5 RECURRENT MYOCARDIAL INFARCTION 2.5-3.5 Prothrombin Time 12.7 s 12.5-14.3 Normal (applies to non-numeric results) [facility]) Partial Thromboplastin Time 37.4 s 24.2-38.5 Norm al (applies to non-numeric results) [facility]) ID Date Data Source [id number] 08/18/2020 09:05:00 AM EDT [facility]) Name Value Range Interpretation Code Description Data Mera rce(s) Supporting Document(s) Red Blood Count 5.23 10 4.00-5.40 Normal (applies to non-numeric results) [facility]) White Blood Count 7.1 10 4.0-10.0 Normal (applies to non-numeri c results) [facility]) Mean Corpuscular Volume 84.3 fl 80.0-96.0 Normal ( applies to non-numeric results) [facility] ([facility]) Hematocrit 44.1 % 36.0-47.0 Normal (applies to non-numeric resul ts) [facility]) Hemoglobin 14.1 g/dL 12.0-15.5 Normal (applies to non-numeric resul ts) [facility]) Mean Corpuscular Hemoglobin 27.0 pg 27.0-33.0 Norm al (applies to non-numeric results) [facility]) Mean Corpuscular HGB Conc 32.0 g/dL 32.0-36.5 Normal (applies to non-numeric results) [facility]) Red Cell Distribution Width 12.6 % 11.5-14.5 Norm al (applies to non-numeric results) [facility] ([facility]) Platelet Count, Automated 280 10 150-450 Normal (applies to non-numeric results) [facility]) Neutrophils % 77.7 % 36.0-66.0 Above high normal MEDE NT ([facility]) Lymph % 10.6 % 24.0-44.0 Below low normal [facility] ( [facility]) Bull[place] % 7.7 % 2.0-8.0 Normal (applies to non-numeric resul ts) [facility]) Eos % 2.7 % 0.0-3.0 Normal (applies to non-numeric resul ts) [facility]) Nucleated Red Blood Cell % 0.0 % 0-0 Normal (applies to n on-numeric results) [facility]) Baso % 0.7 % 0.0-1.0 Normal (applies to non-numeric resul ts) [facility]) Immature Granulocyte % 0.6 % 0-3.0 Normal (applies to non-n umeric results) [facility] ([facility]) Lymph # 0.8 10 1.5-5.0 Below low normal [facility] ( [facility]) Neutrophils # 5.6 10 1.5-8.5 Normal (applies to non-numeric re sults) [facility] ([facility]) Bull[place] # 0.6 10 0.0-0.8 Normal (applies to non-numeric resul ts) [facility] ([facility]) Baso # 0.1 10 0.0-0.2 Normal (applies to non-numeric resul ts) [facility] ([facility]) Eos # 0.2 10 0.0-0.5 Normal (applies to non-numeric resul ts) [facility] ([facility]) ID Date Data Source [id number] 08/18/2020 09:05:00 AM EDT [facility]) Name Value Range Interpretation Code Description Data Mera rce(s) Supporting Document(s) Ast/Sgot 12 U/L 7-37 Normal (applies to non-numeric resul ts) [facility] ([facility]) Alt/SGPT 21 U/L 12-78 Normal (applies to non-numeric resul ts) [facility] ([facility]) Alkaline Phosphatase 234 U/L 45-117 Above high normal [facility] ([facility]) Bilirubin,Total 0.7 mg/dL 0.2-1.0 Normal (applies to non-numeric results) [facility] ([facility]) Total Protein 7.5 GM/DL 6.4-8.2 Normal (applies to non-numeric re sults) [facility] ([facility]) Bilirubin,Direct 0.2 mg/dL 0.0-0.2 Normal (applies to non-numeric results) [facility] ([facility]) Albumin 3.8 GM/DL 3.2-5.2 Normal (applies to non-numeric resul ts) [facility] ([facility]) Albumin/Globulin Ratio 1.0 1.2-2.2 Below low normal [facility] ([facility]) ID Date Data Source [id number] 08/18/2020 09:02:00 AM EDT [facility] ([facility], ) Name Value Range Interpretation Code Description Data Mera rce(s) Supporting Document(s) Levetiracetam [Mass/volume] in Serum or Plasma 20.9 ug/mL 10.0-40.0 [facility] ([facility], ) This test was developed and its performa nce characteristics determined by [facility]. It has not been cleared or approved by the Food and Drug Administration. Lamotrigine [Mass/volume] in Serum or Plasma 13.1 ug/mL 2.0-20.0 [facility]) Detection Limit = 1.0 Performed at: [address] [id number] Roof Fitter: Maida Weber MD, Phone: [phone] ID Date Data Source [id number] 08/18/2020 09:02:00 AM EDT [facility] ([facility], ) Name Value Range Interpretation Code Description Data Mera rce(s) Supporting Document(s) Blood Urea Nitrogen 11 mg/dL 7-18 MED[facility] ([facility], ) Glucose, Fasting 72 mg/dL 70-100 MED[facility] ([facility]) Glomerular Filtration Rate Laboratory test result [facility] ([facility]) <content>Units are mL/min/1.73 m2</content>
<content></content>
<content>Chronic Kidney Disease Staging per NKF:</content>
<content></content>
<content>Stage I & II GFR >=60 Normal to Mildly Decreased</content>
<content>Stage III GFR 30- 59 Moderately Decreased</content>
<content>Stage IV GFR 15-29 Severely Decreased</content>
<content>Stage V GFR <15 Very Little GFR Left</content>
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
<content></content> Creatinine For GFR 0.78 mg/dL 0.55-1.30 MED[facility] ([facility], ) Potassium Serum 4.8 meq/L 3.5-5.1 [facility]) Sodium Level 141 meq/L 136-145 MED[facility] ([facility]) Chloride Level 106 meq/L 98-107 [facility] ([facility]) Anion Gap 4 meq/L 8-16 MED[facility] ([facility]) Carbon Dioxide Level 31 meq/L 21-32 [facility] ([facility]) Calcium Level 9.7 mg/dL 8.5-10.1 [facility] ([facility]) Ast/Sgot 11 U/L 7-37 [facility] ([facility]) Alt/SGPT 22 U/L 12-78 [facility] ([facility]) Alkaline Phosphatase 236 U/L 45-117 [facility] ([facility]) Total Protein 7.4 GM/DL 6.4-8.2 [facility] ([facility]) Bilirubin,Total 0.7 mg/dL 0.2-1.0 [facility] ([facility]) Albumin 3.7 GM/DL 3.2-5.2 [facility] ([facility]) Albumin/Globulin Ratio 1.0 1.2-2.2 [facility] ([facility]) ID Date Data Source [id number] 08/18/2020 09:02:00 AM EDT MEDENT ([facility]) Name Value Range Interpretation Code Description Data Mera rce(s) Supporting Document(s) White Blood Count 7.1 10 4.0-10.0 MED[facility] ([facility], ) Hemoglobin 13.6 g/dL 12.0-15.5 MED[facility] ([facility]) Red Blood Count 5.12 10 4.00-5.40 MED[facility] ([facility]) Mean Corpuscular Volume 83.8 fl 80.0-96.0 M EDENT ([facility]) Hematocrit 42.9 % 36.0-47.0 [facility] ([facility]) Mean Corpuscular HGB Conc 31.7 g/dL 32.0-36.5 [facility] ([facility]) Red Cell Distribution Width 12.6 % 11.5-14.5 [facility] ([facility]) Mean Corpuscular Hemoglobin 26.6 pg 27.0-33.0 [facility] ([facility]) Platelet Count, Automated 289 10 150-450 MED[facility] ([facility]) Neutrophils % 79.0 % 36.0-66.0 [facility] ([facility]) Bull[place] % 6.8 % 2.0-8.0 [facility] ([facility]) Lymph % 10.1 % 24.0-44.0 MED[facility] ([facility]) Eos % 2.5 % 0.0-3.0 [facility] ([facility]) Baso % 0.8 % 0.0-1.0 [facility] ([facility]) Immature Granulocyte % 0.8 % 0-3.0 [facility] ([facility]) Nucleated Red Blood Cell % 0.0 % 0-0 MED ENT ([facility]) [place] # 0.5 10 0.0-0.8 MED[facility] ([facility]) Lymph # 0.7 10 1.5-5.0 [facility] ([facility]) Neutrophils # 5.6 10 1.5-8.5 [facility] ([facility]) Baso # 0.1 10 0.0-0.2 [facility] ([facility]) Eos # 0.2 10 0.0-0.5 [facility] ([facility]) ID Date Data Source [id number] 08/14/2020 10:45:00 AM EDT [facility] Name Value Range Interpretation Code Description Data Mera rce(s) Supporting Document(s) SARS-CoV-2 (COVID-19) RNA [Presence] in Respiratory specimen by GITA with probe detection Not Detected [facility] This lab was ordered by [facility] and reported by [employer]. ID Date Data Source [id number] 06/29/2020 08:47:00 AM EDT MEDENT ([facility]) Name Value Range Interpretation Code Description Data Mera rce(s) Supporting Document(s) Levetiracetam [Mass/volume] in Serum or Plasma 16.2 ug/mL 10.0-40.0 MED[facility] ([facility]) This test was developed and its performa nce characteristics determined by [facility]. It has not been cleared or approved by the Food and Drug Administration. Lamotrigine [Mass/volume] in Serum or Plasma 10.1 ug/mL 2.0-20.0 [facility] ([facility], ) Testing on this sample was performed by homogeneous enzyme immunoassay. Detection Limit = 1.0 Performed at: [facility] [address] [id number] Ro[address] Fitter: Maida Weber MD, Phone: [phone] Performed at: [facility] [address] [place] [id number] Fitter: Nilam Mendoza [facility], Phone: [phone] ID Date Data Source [id number] 06/29/2020 08:47:00 AM EDT [facility]) Name Value Range Interpretation Code Description Data Mera rce(s) Supporting Document(s) Glucose, Fasting 92 mg/dL 70-100 MED[facility] ([facility], ) Blood Urea Nitrogen 14 mg/dL 7-18 MED[facility] ([facility]) Creatinine For GFR 0.74 mg/dL 0.55-1.30 [facility] ([facility]) Glomerular Filtration Rate Laboratory test result [facility] ([facility]) <content>Units are mL/min/1.73 m2</content>
<content></content>
<content>Chronic Kidney Disease Staging per NKF:</content>
<content></content>
<content>Stage I & II GFR >=60 Normal to Mildly Decreased</content>
<content>Stage III GFR 30- 59 Moderately Decreased</content>
<content>Stage IV GFR 15-29 Severely Decreased</content>
<content>Stage V GFR <15 Very Little GFR Left</content>
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
<content></content> Potassium Serum 4.1 meq/L 3.5-5.1 MED[facility] ([facility], ) Sodium Level 141 meq/L 136-145 MED[facility] ([facility]) Carbon Dioxide Level 28 meq/L 21-32 [facility] ([facility]) Chloride Level 107 meq/L 98-107 [facility] ([facility]) Calcium Level 9.3 mg/dL 8.5-10.1 [facility] ([facility]) Ast/Sgot 11 U/L 7-37 MED[facility] ([facility]) Anion Gap 6 meq/L 8-16 [facility] ([facility]) Alkaline Phosphatase 286 U/L 45-117 MED[facility] ([facility]) Alt/SGPT 19 U/L 12-78 [facility] ([facility]) Total Protein 7.4 GM/DL 6.4-8.2 [facility] ([facility]) Bilirubin,Total 0.4 mg/dL 0.2-1.0 [facility] ([facility]) Albumin 3.5 GM/DL 3.2-5.2 [facility] ([facility]) Albumin/Globulin Ratio 0.9 1.2-2.2 [facility] ([facility]) ID Date Data Source [id number] 06/29/2020 08:47:00 AM EDT MED[facility] ([facility]) Name Value Range Interpretation Code Description Data Mera rce(s) Supporting Document(s) Red Blood Count 4.84 10 4.00-5.40 [facility] ([facility]) Hemoglobin 13.6 g/dL 12.0-15.5 [facility] ([facility]) White Blood Count 7.3 10 4.0-10.0 [facility] ([facility]) Hematocrit 42.2 % 36.0-47.0 [facility] ([facility]) Mean Corpuscular Volume 87.2 fl 80.0-96.0 M EDENT ([facility]) Mean Corpuscular Hemoglobin 28.1 pg 27.0-33.0 [facility] ([facility]) Mean Corpuscular HGB Conc 32.2 g/dL 32.0-36.5 MED[facility] ([facility]) Platelet Count, Automated 278 10 150-450 MED[facility] ([facility]) Red Cell Distribution Width 12.0 % 11.5-14.5 MED[facility] ([facility], ) Lymph % 9.3 % 24.0-44.0 [facility] Neutrophils % 78.1 % 36.0-66.0 MED[facility] ([facility], ) Bull[place] % 7.8 % 2.0-8.0 [facility] ([facility] Eos % 3.3 % 0.0-3.0 MED[facility] ([facility], ) Baso % 0.7 % 0.0-1.0 [facility] ([facility] Immature Granulocyte % 0.8 % 0-3.0 [facility] ([facility] Nucleated Red Blood Cell % 0.0 % 0-0 MED ENT ([facility]) Lymph # 0.7 10 1.5-5.0 [facility] ([facility]) Neutrophils # 5.7 10 1.5-8.5 MED[facility] ([facility], ) [place] # 0.6 10 0.0-0.8 MED[facility] ([facility], ) Eos # 0.2 10 0.0-0.5 [facility] ([facility]) Baso # 0.1 10 0.0-0.2 [facility] ([facility]) ID Date Data Source [id number] 06/18/2020 09:35:00 AM EDT [facility] Name Value Range Interpretation Code Description Data Mera rce(s) Supporting Document(s) SARS-CoV-2 (COVID-19) RNA [Presence] in Respiratory specimen by GITA with probe detection Not Detected [facility] This lab was ordered by [facility] and reported by [employer]. ID Date Data Source [id number] 05/31/2020 08:29:00 AM EDT MED[facility] ([facility], ) Name Value Range Interpretation Code Description Data Mera rce(s) Supporting Document(s) Lamotrigine [Mass/volume] in Serum or Plasma 10.1 ug/mL 2.0-20.0 [facility] ([facility] Testing on this sample was performed by homogeneous enzyme immunoassay. Detection Limit = 1.0 Performed at: [address] [id number] Fitter: Maida Weber MD, Phone: [phone] Performed at: [facility] [address] [place] [id number] Fitter: Nilam Mendoza [facility], Phone: [phone] Levetiracetam [Mass/volume] in Serum or Plasma 32.1 ug/mL 10.0-40.0 [facility] ([facility], ) This test was developed and its performa nce characteristics determined by [facility]. It has not been cleared or approved by the Food and Drug Administration. ID Date Data Source [id number] 05/31/2020 08:29:00 AM EDT [facility] Name Value Range Interpretation Code Description Data Mera rce(s) Supporting Document(s) Glucose, Fasting 100 mg/dL 70-100 [facility] ([facility]) Blood Urea Nitrogen 10 mg/dL 7-18 [facility] ([facility], ) Creatinine For GFR 0.69 mg/dL 0.55-1.30 [facility] ([facility]) Glomerular Filtration Rate Laboratory test result [facility] ([facility]) <content>Units are mL/min/1.73 m2</content>
<content></content>
<content>Chronic Kidney Disease Staging per NKF:</content>
<content></content>
<content>Stage I & II GFR >=60 Normal to Mildly Decreased</content>
<content>Stage III GFR 30- 59 Moderately Decreased</content>
<content>Stage IV GFR 15-29 Severely Decreased</content>
<content>Stage V GFR <15 Very Little GFR Left</content>
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
<content></content> Sodium Level 141 meq/L 136-145 [facility] ([facility], ) Potassium Serum 3.9 meq/L 3.5-5.1 [facility] ([facility]) Carbon Dioxide Level 31 meq/L 21-32 [facility] ([facility]) Chloride Level 107 meq/L 98-107 [facility] ([facility], ) Anion Gap 3 meq/L 8-16 [facility] ([facility]) Calcium Level 9.0 mg/dL 8.5-10.1 [facility] ([facility]) Ast/Sgot 54 U/L 7-37 [facility] ([facility]) Alt/SGPT 93 U/L 12-78 [facility] ([facility]) Alkaline Phosphatase 343 U/L 45-117 [facility] ([facility]) Total Protein 6.6 GM/DL 6.4-8.2 [facility] ([facility]) Bilirubin,Total 0.4 mg/dL 0.2-1.0 MED[facility] ([facility]) Albumin 3.1 GM/DL 3.2-5.2 MED[facility] ([facility]) Albumin/Globulin Ratio 0.9 1.2-2.2 [facility] ([facility]) ID Date Data Source [id number] 05/31/2020 08:29:00 AM EDT [facility] ([facility]) Name Value Range Interpretation Code Description Data Mera rce(s) Supporting Document(s) Red Blood Count 4.70 10 4.00-5.40 [facility] ([facility]) White Blood Count 6.2 10 4.0-10.0 [facility] ([facility]) Hemoglobin 13.2 g/dL 12.0-15.5 MED[facility] ([facility], ) Hematocrit 40.9 % 36.0-47.0 MED[facility] ([facility], ) Mean Corpuscular Volume 87.0 fl 80.0-96.0 M EDENT ([facility], ) Mean Corpuscular HGB Conc 32.3 g/dL 32.0-36.5 [facility] ([facility]) Mean Corpuscular Hemoglobin 28.1 pg 27.0-33.0 [facility] ([facility]) Red Cell Distribution Width 12.6 % 11.5-14.5 [facility] ([facility]) Platelet Count, Automated 241 10 150-450 MED[facility] ([facility]) Lymph % 12.1 % 24.0-44.0 MED[facility] ([facility], ) Neutrophils % 73.1 % 36.0-66.0 MEDENT ([facility], ) [place] % 9.2 % 2.0-8.0 [facility] ([facility]) Eos % 3.4 % 0.0-3.0 [facility] ([facility]) Baso % 0.6 % 0.0-1.0 MED[facility] ([facility]) Nucleated Red Blood Cell % 0.0 % 0-0 MED ENT [facility] Immature Granulocyte % 1.6 % 0-3.0 [facility] ([facility]) Lymph # 0.8 10 1.5-5.0 [facility] ([facility]) Neutrophils # 4.6 10 1.5-8.5 [facility] ([facility]) [place] # 0.6 10 0.0-0.8 [facility] ([facility]) Eos # 0.2 10 0.0-0.5 [facility] ([facility]) Baso # 0.0 10 0.0-0.2 [facility] ([facility]) ID Date Data Source [id number] 05/03/2020 07:31:00 AM EST MED[facility] ([facility]) Name Value Range Interpretation Code Description Data Mera rce(s) Supporting Document(s) Levetiracetam [Mass/volume] in Serum or Plasma 7.9 ug/mL 10.0-40.0 MED[facility] ([facility], ) This test was developed and its performa nce characteristics determined by [facility]. It has not been cleared or approved by the Food and Drug Administration. Lamotrigine [Mass/volume] in Serum or Plasma 7.2 ug/mL 2.0-20.0 MED[facility] ([facility], ) Testing on this sample was performed by homogeneous enzyme immunoassay. Detection Limit = 1.0 Performed at: [address] [id number] Roof Fitter: Maida Weber MD, Phone: [phone] Performed at: [employer] [address] [id number] Roof Fitter: Nilam Mendoza [facility], Phone: [phone] ID Date Data Source [id number] 05/03/2020 07:31:00 AM EST MED[facility] ([facility]) Name Value Range Interpretation Code Description Data Mera rce(s) Supporting Document(s) Glucose, Fasting 74 mg/dL 70-100 [facility] ([facility], ) Blood Urea Nitrogen 13 mg/dL 7-18 MED[facility] ([facility], ) Creatinine For GFR 0.81 mg/dL 0.55-1.30 [facility] ([facility]) Sodium Level 142 meq/L 136-145 MED[facility] ([facility]) Glomerular Filtration Rate Laboratory test result [facility] ([facility]) <content>Units are mL/min/1.73 m2</content>
<content></content>
<content>Chronic Kidney Disease Staging per NKF:</content>
<content></content>
<content>Stage I & II GFR >=60 Normal to Mildly Decreased</content>
<content>Stage III GFR 30- 59 Moderately Decreased</content>
<content>Stage IV GFR 15-29 Severely Decreased</content>
<content>Stage V GFR <15 Very Little GFR Left</content>
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
<content></content> Potassium Serum 4.1 meq/L 3.5-5.1 [facility] ([facility]) Chloride Level 105 meq/L 98-107 MED[facility] ([facility]) Anion Gap 8 meq/L 8-16 [facility] ([facility]) Calcium Level 9.2 mg/dL 8.5-10.1 [facility] ([facility]) Carbon Dioxide Level 29 meq/L 21-32 MED[facility] ([facility]) Alt/SGPT 38 U/L 12-78 [facility] ([facility]) Ast/Sgot 22 U/L 7-37 [facility] ([facility]) Alkaline Phosphatase 263 U/L 45-117 [facility] ([facility]) Bilirubin,Total 0.5 mg/dL 0.2-1.0 [facility] ([facility]) Total Protein 6.8 GM/DL 6.4-8.2 [facility] ([facility]) Albumin 3.6 GM/DL 3.2-5.2 [facility] ([facility]) Albumin/Globulin Ratio 1.1 1.2-2.2 [facility] ([facility]) ID Date Data Source [id number] 05/03/2020 07:31:00 AM EST [facility] ([facility]) Name Value Range Interpretation Code Description Data Mera rce(s) Supporting Document(s) White Blood Count 5.0 10 4.0-10.0 [facility] ([facility]) Hemoglobin 13.7 g/dL 12.0-15.5 [facility] ([facility]) Red Blood Count 4.92 10 4.00-5.40 [facility] ([facility]) Hematocrit 42.8 % 36.0-47.0 [facility] ([facility]) Mean Corpuscular Volume 87.0 fl 80.0-96.0 M EDENT ([facility]) Mean Corpuscular Hemoglobin 27.8 pg 27.0-33.0 [facility] ([facility]) Red Cell Distribution Width 13.1 % 11.5-14.5 [facility] ([facility]) Mean Corpuscular HGB Conc 32.0 g/dL 32.0-36.5 [facility] ([facility]) Neutrophils % 65.6 % 36.0-66.0 [facility] ([facility]) Platelet Count, Automated 248 10 150-450 [facility] ([facility]) [place] % 11.9 % 2.0-8.0 [facility] ([facility] Lymph % 16.3 % 24.0-44.0 [facility] ([facility]) Eos % 4.8 % 0.0-3.0 [facility] ([facility]) Baso % 1.2 % 0.0-1.0 [facility] ([facility]) Nucleated Red Blood Cell % 0.0 % 0-0 MED ENT ([facility]) Immature Granulocyte % 0.2 % 0-3.0 [facility] ([facility]) Lymph # 0.8 10 1.5-5.0 [facility] ([facility], ) Neutrophils # 3.3 10 1.5-8.5 MED[facility] ([facility], ) Bull[place] # 0.6 10 0.0-0.8 [facility] ([facility], ) Eos # 0.2 10 0.0-0.5 [facility] ([facility], ) Baso # 0.1 10 0.0-0.2 [facility] ([facility], ) ID Date Data Source [id number] 04/12/2020 11:09:00 AM EST [facility] ([facility]) Name Value Range Interpretation Code Description Data Mera rce(s) Supporting Document(s) Lamotrigine [Mass/volume] in Serum or Plasma 6.7 ug/mL 2.0-20.0 [facility] ([facility], ) Testing on this sample was performed by homogeneous enzyme immunoassay. Detection Limit = 1.0 Performed at: [employer] [place] [address] Roof Fitter: Nilam Mendoza [facility], Phone: [phone] ID Date Data Source [id number] 04/12/2020 11:09:00 AM EST [facility] ([facility]) Name Value Range Interpretation Code Description Data Mera rce(s) Supporting Document(s) Glucose, Fasting 86 mg/dL 70-100 [facility] ([facility], ) Creatinine For GFR 0.86 mg/dL 0.55-1.30 [facility] ([facility], ) Blood Urea Nitrogen 12 mg/dL 7-18 [facility] ([facility], ) Glomerular Filtration Rate Laboratory test result [facility] ([facility]) <content>Units are mL/min/1.73 m2</content>
<content></content>
<content>Chronic Kidney Disease Staging per NKF:</content>
<content></content>
<content>Stage I & II GFR >=60 Normal to Mildly Decreased</content>
<content>Stage III GFR 30- 59 Moderately Decreased</content>
<content>Stage IV GFR 15-29 Severely Decreased</content>
<content>Stage V GFR <15 Very Little GFR Left</content>
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
<content></content> Sodium Level 141 meq/L 136-145 [facility] ([facility]) Potassium Serum 4.3 meq/L 3.5-5.1 [facility] ([facility]) Chloride Level 105 meq/L 98-107 [facility] ([facility]) Carbon Dioxide Level 28 meq/L 21-32 [facility] ([facility]) Anion Gap 8 meq/L 8-16 [facility] ([facility]) Calcium Level 10.0 mg/dL 8.5-10.1 [facility] ([facility]) Ast/Sgot 27 U/L 7-37 [facility] ([facility]) Alt/SGPT 42 U/L 12-78 [facility] ([facility]) Bilirubin,Total 0.8 mg/dL 0.2-1.0 [facility] ([facility]) Alkaline Phosphatase 487 U/L 45-117 [facility] ([facility]) Total Protein 6.9 GM/DL 6.4-8.2 [facility] ([facility]) Albumin/Globulin Ratio 1.0 1.2-2.2 [facility] ([facility]) Albumin 3.5 GM/DL 3.2-5.2 [facility] ([facility]) ID Date Data Source HEPATITIS B SURFACE ANTIGEN 2020 12:00:00 AM EST eCW1 ([facility]) Name Value Range Interpretation Code Description Data Mera rce(s) Supporting Document(s) NEGATIVE NEGATIVE HEPATITIS B SURFACE ANTIG EN eCW1 ([facility]) ID Date Data Source HEPATITIS C ANTIBODY INDEX 2020 12:00:00 AM EST eCW1 ( [facility]) Name Value Range Interpretation Code Description Data Mera rce(s) Supporting Document(s) < 0.0 <0.8 HEPATITIS C VIRUS JOSE JUAN IND EX eCW1 ([facility]) ID Date Data Source HEPATITIS B SURFACE ANTIBODY 2020 12:00:00 AM EST eCW1 ([facility]) Name Value Range Interpretation Code Description Data Mera rce(s) Supporting Document(s) NEGATIVE POSITIVE HEPATITIS B SURFACE ANTIB SAUL eCW1 ([facility]) ID Date Data Source HEPATITIS A ANTIBODY IGM 2020 12:00:00 AM EST eCW1 ([facility]) Name Value Range Interpretation Code Description Data Mera rce(s) Supporting Document(s) NEGATIVE NEGATIVE HEPATITIS A ANTIBODY IGM eCW1 ([facility]) ID Date Data Source GAMMA GLUTAMYLTRANSPEPTIDASE 2020 12:00:00 AM EST eCW1 ([facility]) Name Value Range Interpretation Code Description Data Mera rce(s) Supporting Document(s) 320 5-55 GAMMA GLUTAMYLTRANSPEPTIDASE e CW1 ([facility]) ID Date Data Source [id number] 03/23/2020 09:39:00 AM EST MED[facility] ([facility], ) Name Value Range Interpretation Code Description Data Mera rce(s) Supporting Document(s) Valproate [Mass/volume] in Serum or Plasma 59.4 UG/ML 50.0-100.0 MED[facility] ([facility], ) <content>note:<nlbl:[email or web address]> </content>
<content></content> Lamotrigine [Mass/volume] in Serum or Plasma 14.5 ug/mL 2.0-20.0 [facility] ([facility], ) Testing on this sample was performed by homogeneous enzyme immunoassay. Detection Limit = 1.0 Performed at: [employer] [address] [place] [id number] Roof Fitter: Nilam Mendoza [facility], Phone: [phone] ID Date Data Source [id number] 03/14/2020 10:17:00 AM EST [facility] Name Value Range Interpretation Code Description Data Mera rce(s) Supporting Document(s) Respiratory specimen severe acute respir atory syndrome coronavirus 2 (SARS-CoV-2) RNA [facility] This lab was ordered by Stephanie porras and reported by . ID Date Data Source [id number] 03/14/2020 10:14:00 AM EST [facility] Name Value Range Interpretation Code Description Data Mera rce(s) Supporting Document(s) Respiratory specimen severe acute respir atory syndrome coronavirus 2 (SARS-CoV-2) RNA [facility] and reported by . ID Date Data Source [id number] 03/14/2020 10:14:00 AM EST [facility] Name Value Range Interpretation Code Description Data Mera rce(s) Supporting Document(s) Respiratory specimen severe acute respir atory syndrome coronavirus 2 (SARS-CoV-2) RNA [facility] This lab was ordered by [facility] vern and reported by . ID Date Data Source [id number] 03/10/2020 08:32:00 AM [facility] Name Value Range Interpretation Code Description Data Mera rce(s) Supporting Document(s) SARS-CoV-2 RNA INHOUSE Negative Normal (applies to non-n umeric results) [facility] THIS IS A [facility] REPORTABLE COMMUNICABLE DISEASE. Testing was performed using the Split COVID-19 MDx Assay. This test has been [...] be found at the following links: Providers: https://www.fda.gov/media/018169/download Patients : https://www.fda.gov/media/185675/download THIS IS A [facility] REPORTABLE COMMUNICABLE DISEASE Negative results do not preclude SARS-CoV-2 infection and should not be used as the sole basis for patient management decisions. Negative results must be combined with clinical observations,patient history, and epidemiological information. ID Date Data Source [id number] 03/03/2020 06:48:00 PM [facility] Name Value Range Interpretation Code Description Data Mera rce(s) Supporting Document(s) SARS-CoV-2 RNA INHOUSE Negative Normal (applies to non-n umeric results) [facility] THIS IS A [facility] REPORTABLE COMMUNICABLE DISEASE. Testing was performed using the Split COVID-19 MDx Assay. This test has been [...] be found at the following links: Providers: https://www.[employer].gov/media/655597/download Patients : https://www.fda.gov/media/901221/download THIS IS A [facility] REPORTABLE COMMUNICABLE DISEASE Negative results do not preclude SARS-CoV-2 infection and should not be used as the sole basis for patient management decisions. Negative results must be combined with clinical observations,patient history, and epidemiological information. ID Date Data Source [id number] 02/23/2020 07:15:00 AM [facility] Name Value Range Interpretation Code Description Data Mera rce(s) Supporting Document(s) SARS-CoV-2 GITA result Not Detected Normal (applies to non- numeric results) [facility] This nucleic acid amplification test was developed and its performance characteristics determined by [employer]. Nucleic acid amplification tests include PCR and [...] detected) result in this assay. Performed at: [employer] [address] [place], [place] [id number] Roof Fitter: Nelsy Ordoñez PhD, Phone: [phone] Testing was performed using the Aptima SARS-CoV-2 assay. This nucleic acid amplification test was developed and its performance characteristics determined by [employer]. Nucleic acid amplification tests include PCR and [...] detected) result in this assay. Performed at: [address] [id number] Roof Fitter: Ana Taylor MD, Phone: [phone] ID Date Data Source [id number] 02/11/2020 11:29:00 AM EST [facility] Name Value Range Interpretation Code Description Data Mera rce(s) Supporting Document(s) SARS coronavirus [address] [facility] This lab was ordered by Cathi woods and reported by [facility]. ID Date Data Source [id number] 02/14/2020 02:39:00 PM [facility] Name Value Range Interpretation Code Description Data Mera rce(s) Supporting Document(s) COVID-19 Result Not Detected Normal (applies to non-numeri c results) [facility] This nucleic acid amplification test was developed and its performance characteristics determined by [employer]. Nucleic acid amplification tests include PCR and [...] detected) result in this assay. Performed at: [employer] [address], [place] [id number] Roof Fitter: Nelsy Ordoñez PhD, Phone: [phone] Testing was performed using the Aptima SARS-CoV-2 assay. This nucleic acid amplification test was developed and its performance characteristics determined by [employer]. Nucleic acid amplification tests include PCR and [...] detected) result in this assay. Performed at: [address] [id number] Roof Fitter: Ana Taylor MD, Phone: [phone] ID Date Data Source [id number] 01/16/2020 12:26:11 PM [facility] Name Value Range Interpretation Code Description Data Mera e(s) Supporting Document(s) Discharge Summary [facility] QBCZGs7lXbDORvWn09/TCQoeBRMgj3LiJEtdRWo3MJvbJMPmN2FkHYM1cS2aSYS0EZtHFeRkTzObAVE3 m [file] WdTEZ0JeT4VZQsOwUfFCrwZ5Q2JT6kLCCPVw6+UCpytYKmoKojPTLIMuUmErM2ZJjdFVKKPz7E ID Date Data Source [id number] 01/15/2020 03:36:41 PM [facility] Name Value Range Interpretation Code Description Data Mera rce(s) Supporting Document(s) History and Physical [facility] GFTEQa1nYhKXFxVb58/JGDfmIBTks9FjPMlnSEo4VJvyFPPtK2XuUZK8qF7xCFP7JDePHaAqCxTmXMO1 lbm [file] Ev5+M/foYRw5e5lnMaKU57ylH42GkndqnYInbyc29pXf4vFpfYSD8rb/qj+aFLqW0RO5kBGOwZlp/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 [file] ICAgICAgICAgICAgICAgICAgICAgICAgICAgICAgICAgICAgICAgICAgICAgICAgICAgICAgICAgICAg ICAgICAgICAgICAgICAgICAgICAgICAgICAgICAgDQogICAgICAgICAgICAgICAgICAgICAgICAgICAg ICAgICAgICAgICAgICAgICAgICAgICAgICAgICAgIC AgICAgICAgICAgICAgICAgICAgICAgICAgICAgICAgICAgICAgICAgDQogICAgICAgICAgICAgICAgIC AgICAgICAgICAgICAgICAgICAgICAgICAgICAgICAgICAgICAgICAgICAgICAgICAgICAgICAgICAgIC AgICAgICAgICAgICAgICAgICAgICAgDQogICAgICAg ICAgICAgICAgICAgICAgICAgICAgICAgICAgICAgICAgICAgICAgICAgICAgICAgICAgICAgICAgICAg ICAgICAgICAgICAgICAgICAgICAgICAgICAgICAgICAgDQogICAgICAgICAgICAgICAgICAgICAgICAg ICAgICAgICAgICAgICAgICAgICAgICAgICAgICAgIC AgICAgICAgICAgICAgICAgICAgICAgICAgICAgICAgICAgICAgICAgICAgDQogICAgICAgICAgICAgIC AgICAgICAgICAgICAgICAgICAgICAgICAgICAgICAgICAgICAgICAgICAgICAgICAgICAgICAgICAgIC AgICAgICAgICAgICAgICAgICAgICAgICAgDQogICAg ICAgICAgICAgICAgICAgICAgICAgICAgICAgICAgICAgICAgICAgICAgICAgICAgICAgICAgICAgICAg ICAgICAgICAgICAgICAgICAgICAgICAgICAgICAgICAgICAgDQogICAgICAgICAgICAgICAgICAgICAg ICAgICAgICAgICAgICAgICAgICAgICAgICAgICAgIC AgICAgICAgICAgICAgICAgICAgICAgICAgICAgICAgICAgICAgICAgICAgICAgDQogICAgICAgICAgIC AgICAgICAgICAgICAgICAgICAgICAgICAgICAgICAgICAgICAgICAgICAgICAgICAgICAgICAgICAgIC AgICAgICAgICAgICAgICAgICAgICAgICAgICAgDQog ICAgICAgICAgICAgICAgICAgICAgICAgICAgICAgICAgICAgICAgICAgICAgICAgICAgICAgICAgICAg TIZmTVZfVMPsTHBlCBUzCIMuPARaDHKsYTTkFJLyIFHzLUOzNDZnVWm7J8ioLNItUKKwUG9vGCh9Hx1+ ERwOCfShIBX1ggZgdC6WMJ7kp1GkLXdtZYTuh7QsEN x4VU7SNWYhMFhhOR7PVPwbhp0GUQVsJLYtmJAOk4kuRuWbMBB5XBAzCpvhLF3QLSQrY8uqguGcPGDlKB BOFZwfZQPZEWqlODLWWHPcVVJoCmKgUmLnBKBiMQBqAVSKCDL2MGDyPsAsNMpcCR1Zq0TkiTB5FVb+Pg 4DRM6yc8BxNXqpHAEdML0nwu9WBEfCNxUkC3YsbsH0 YJP3SRGwOu7AEOEzGHKcsDNzUYShWXTYWgKkJ1PolL43ECBJNu5+OOrglpNvOsqRYpB9KWUmv3OjBHk9 HQ0JUGSgNRf9dATbGZVFJOE3IRBffOXgJGQUAEWnoDmsRCZpPLIpGLSjJc4mDSMiLXEwUuB6VGINGW4B KLSyKNUtaUAaESKrCSRKER5VUBtdWOY7WHEshbJumN SlYJptMR3UAGQlmcZeDvZxUDRIBCd+Zj8DVX5yn4DeZTisJuIpRB3mup6HYLhTAfJwM6A0zTAuL1J1GU ooTh6PDPLkJMVhYuMnSLWZYXbxFF0LVL2tfbW1CK3EwAYqMPArIZWmhDGxBGy8S91efEJqHBspRE5UBB A+Dania+Ih7TDVSlYCMtPUItVxTnWUURCmKkH0SaG6WE m4ZpH7EjIT84cDgevdDpMLxtRB7FJG8mLNAgEHHRZD0FdSEbqV0oedTjGYVyTKDTSzZuV17rrHLcMEXi SWKuYLPvTd2EYLXtP1UjzsSynHrtdeKgJKOtUSKYCS6ADBfxnjEmsKGqnSzzDD67iEkaUV2UGy8XLwTc DQ2qiw4SgDKyQf5AICTyLh8BOLVuCVUtNXQaWOF2AX QtHtRuGDqcFZLwPQJtOSX7AZAkFMZsWM5PKxWtSNJdUtw7OMFsBBBnFXAlsr0ZHQAtZZK3YMAfYVMzUX GgZEAcOUqcQDJlMQPjDMG7NXQfWARnOS7CPkAeZAQuDFUrBBVsYNRwLIMkov4GFVLyINLgSKJ0MILtLE OoJXTpJZdvJVZyFNN6KLA5YKWiWMJvQH9JWlAiUQLz QBbhUqTcLDMlYBFelg9OFPCuRXJnWUv8XJFtVTTtATAqEHcwFWNxEHMmMKd1LEKfOSYiWQ7UOuDtRFVi BBU3RnKbPYJlSCPoxo2CIHUcAWCaZCekDOSjBFGzHFEfJBjjMSCsOHK5MjQ4AFEuXZVbNJ5ZBxHhFILf MZg9OyLhSLItCQZpav3FVQDeEVQcBUkxDbZaEVGjEW McIUjnHXZnNPAnHWW4XIMvRXJrAH1SLnZgAEOrPnS4RFJqAQXrOGDxco4RNOUlYVQlIxD9YpQiVVAiAE FwFXqpIINcQEDaFIJ4QZCrDHCaGV4JDzQrHXAlReBbELZrNLMhZQGfrg6TXOKdNZDePyD0SrDfFKBuKQ ObSOnzJRLlXVE9UpC1IIZwHQQhEO1YXbTuUBLuAkV0 EFvwDSTnNMUzle3YLURtUAIxYKr1SDTmSTKoPEFyLFomRXGoBDX2LyA3RRKxEOSkJW6MKcOhTTJvMeA2 VHLaXSFoMOAbvz4ZDIArSBRzKsJ4LIKdZWWrNREyFIacRJSeHVP5HTkcVXWuWLDhDN8ICmRoDEXqZba2 KQvbBYGgFLZxmt9KLBSyTUOfTbf0LsOxACRjEFZnOF hiRWNoGSJ5FeX6TZEsKAKxIT7ROoSvGPCbXvzkVQTmZLNwKIIaxf1ZXCWzIZNpWJt3MGYyLRMlKPSvQZ yvCVZvUEHsIzh0BHVxAVVuBY7BEgTaIEQwPZUyEBlpYNWkAKQaux8XWLExWGE2VFR4FXCsIEUiMAXiIH l8cbFlxAPxNRb9SW8XM4GkjkBgBdqCTu4Yv505FYV5 XCNfHr2YJ4pnSy7aOVMzOSHQCz0PJFn6VRgxL2XnDUThXEDiUbW4KuVfQFyoDkGfHpt4WlLeDPN+IDww Q1CaYvAkR8H0XjEaNCzhKnNtJIS4VPChHsF7CsEpGS7eBJQPCq4+KQudkHMqfCseXRGKNfVfQeD3SCob TCODEu1G ID Date Data Source [id number] 01/13/2020 09:31:45 AM [facility] Value Range Interpretation Code Description Data Mera rce(s) Supporting Document(s) Lamotrigine [Mass/volume] in Serum or Plasma 6.4 ug/mL 3.0-14.0 [facility] ID Date Data Source [id number] 01/11/2020 04:48:59 PM [facility] Value Range Interpretation Code Description Data Mera rce(s) Supporting Document(s) Lamotrigine [Mass/volume] in Serum or Plasma 10.0 ug/mL 3.0-14.0 [facility] ID Date Data Source [id number] 01/11/2020 12:16:16 PM [facility] Value Range Interpretation Code Description Data Mera rce(s) Supporting Document(s) Lamotrigine [Mass/volume] in Serum or Plasma 3.0-14.0 [facility] Specimen HemolyzedNotified [place]/[id number] /EMU 01/11/20 1207 2636. ID Date Data Source [id number] 01/11/2020 12:40:51 PM [facility] Value Range Interpretation Code Description Data Mera rce(s) Supporting Document(s) Choriogonadotropin.beta subunit [Moles/volume] in Serum or Plasma <5 [facility] ID Date Data Source [id number] 01/19/2020 10:40:00 AM [facility] First test? NOEmployed in healthcare? NOSymptomatic per CDC? NOHospitalized? NOICU? NOResident in congregated care? ex [facility], [facility] NO? NO Name Value Range Interpretation Code Description Data Mera rce(s) Supporting Document(s) SARS-CoV-2 RNA Negative Normal (applies to non-numeric r esults) [facility] Negative results should be treated as pr [...] Certificate of Accreditation. Factsheets for healthcare providers: https://www.fda.gov/media/513990/download Factsheets for patients: https://www.fda.gov/media/487231/download The ID NOW Instrument is a rapid molecular in vitro diagnostic test utilizing an isothermal nucleic acid amplification technology intended for the qualitative detection of nucleic acid from the SARS-CoV-2 viral RNA. THIS IS A STATE REPORTABLE COMMUNICABLE DISEASE. Manual entry verified by Mayelin Denson 01/19/20 1038 ID Date Data Source [id number] 01/19/2020 12:50:00 PM EST [facility] COVID-19 Patient Ethnicity Not or LatinoCOVID-19 Patient Race WhiteCOVID-19 Specimen Source Nasopharyngeal Name Value Range Interpretation Code Description Data Mera rce(s) Supporting Document(s) SARS-CoV-2 Specimen Source Normal (applies to n on-numeric results) [facility] SARS-CoV-2 RNA Normal (applies to non-numeric r esults) [facility] Patient Race Normal (applies to non-numeric result s) [facility] Patient Ethnicity Normal (applies to non-numeri c results) [facility] See scanned report ID Date Data Source [id number] 12/10/2019 08:10:00 AM EDT MEDENT ([facility], ) Name Value Range Interpretation Code Description Data Mera rce(s) Supporting Document(s) FVC-Pred 4.03 L MEDENT ([facility], ) PDFReport Laboratory test result MEDENT ([facility], ) FVC-LLN 3.29 L MEDENT ([facility]) FVC-%Pred-Pre 30 L MEDENT ([facility]) FVC-Pre 1.22 L MEDENT ([facility]) Fev1-Pred 3.40 L MED[facility] ([facility]) Fev1-Pre 1.21 L MED[facility] ([facility]) Fev1-%Pred-Pre 35 L MEDENT ([facility]) Fev1-LLN 2.77 L MED[facility] ([facility]) Fev6-Pre 1.22 L MED[facility] ([facility]) Fev6-Pred 3.99 L MEDENT ([facility]) Fev6-%Pred-Pre 30 L MEDENT ([facility]) Fev6-LLN 3.27 L MEDENT ([facility]) Hdr5tzl-Asl 99 % MEDENT ([facility]) Xsg8qee-Enhn 85 % MEDENT ([facility]) Yjt0oht-Pivy 99 % MEDENT ([facility]) Xci2csv-FCV 75 % MEDENT ([facility]) Ucd6ugp-%Pred-Pre 116 % MEDENT ([facility]) FEFMax-Pred 7.30 L/E/sec MED[facility] ([facility]) [id number] 100 % [facility] ([facility]) Suv6tic-%Pred-Pre 100 % [facility] ([facility]) FEFMax-%Pred-Pre 26 L/E/sec MED[facility] ([facility]) FEFMax-Pre 1.96 L/E/sec [facility] ([facility]) FEFMax-LLN 5.48 L/E/sec [facility] ([facility]) [id number] 3.61 L/E/sec [facility] ([facility]) [id number]-EAD 2.29 L/E/sec [facility] ([facility]) [id number]-%Pred-Pre 45 L/E/sec [facility] ([facility]) [id number] 1.64 L/E/sec [facility] ([facility]) ExpTime-Pre 1.59 sec [facility] ([facility]) [id number]-Weij 86 % [facility] ([facility]) Euy4gfl2-%Pred-Pre 115 % [facility] ([facility]) [id number]-Hzh 99 % [facility] ([facility]) [id number]-OTL 77 % [facility] ([facility]) ID Date Data Source [id number] 11/06/2019 03:49:00 PM EDT [facility] ([facility]) Name Value Range Interpretation Code Description Data Mera rce(s) Supporting Document(s) Lamotrigine [Mass/volume] in Serum or Plasma 9.0 ug/mL 2.0-20.0 [facility] Testing on this sample was performed by homogeneous enzyme immunoassay. Detection Limit = 1.0 Performed at: [employer] [address] [place] [address] [id number] Roof Fitter: Nilam Mendoza [facility], Phone: [phone] Procedure Social History Code Duration Value Status Description Data Source(s ) Smoking 11/25/2020 12:00:00 AM EDT Patient has never smoked co mpleted Patient has never smoked [facility] ([facility]) Smoking 09/06/2020 12:00:00 AM EDT Never Smoker completed Never S moker eCW1 ([facility]) Smoking 07/26/2020 12:00:00 AM EDT Never Smoker completed Never S moker eCW1 ([facility]) Smoking 07/26/2020 12:00:00 AM EDT Never Smoker completed Never S moker eCW1 ([facility]) Smoking 07/26/2020 12:00:00 AM EDT Never Smoker completed Never S moker eCW1 ([facility]) Smoking 04/27/2020 12:00:00 AM EST Never Smoker completed Never S moker eCW1 ([facility]) Smoking 04/27/2020 12:00:00 AM EST Never Smoker completed Never S moker eCW1 ([facility]) Smoking 03/28/2020 12:00:00 AM EST Never Smoker completed Never S moker eCW1 ([facility]) Smoking 03/28/2020 12:00:00 AM EST Never Smoker completed Never S moker eCW1 ([facility]) Smoking 03/28/2020 12:00:00 AM EST Never Smoker completed Never S moker eCW1 ([facility]) Smoking 03/28/2020 12:00:00 AM EST Never Smoker completed Never S moker eCW1 ([facility]) Smoking 03/28/2020 12:00:00 AM EST Never Smoker completed Never S moker eCW1 ([facility]) Smoking 03/28/2020 12:00:00 AM EST Never Smoker completed Never S moker eCW1 ([facility]) Smoking 03/10/2020 12:00:00 AM EST Never Smoker completed Never S moker eCW1 ([facility]) Alcohol intake 01/11/2020 12:00:00 AM EST Lifetime non-drinker (finding) completed Lifetime non-drinker (finding) [facility] ital Tobacco use and exposure 01/11/2020 12:00:00 AM EST Never used co mpleted Never used [facility] Smoking 01/11/2020 12:00:00 AM EST Never smoker completed Never [facility] Vital Signs ID Date Data Source UNK Name Value Range Interpretation Code Description Data Source(s) Systolic blood pressure 116 mm[Hg] 116 mm[Hg] M EDENT ([facility]) Diastolic blood pressure 74 mm[Hg] 74 mm[Hg] [facility] ([facility]) Heart rate 79 /min 79 /min [facility] ([facility]) Oxygen saturation in Arterial blood by Pulse oximetry 98 % 98 % [facility] ([facility]) Body height 67 [in_i] 67 [in_i] [facility] ([facility]) 5'7" Body weight 186.00 [lb_av] 186.00 [lb_av] [facility] T ([facility]) Body mass index (BMI) [Ratio] 29.1 kg/m2 29.1 k g/m2 [facility] ([facility]) [place] body weight 135 [lb_av] 135 [lb_av] [facility] T ([facility]) Body weight 84.370 kg 84.370 kg [facility] ([facility]) Body surface area Derived from formula 1.96 m2 1.96 m2 [facility] ([facility]) Diastolic blood pressure 80 mm[Hg] 80 mm[Hg] [facility] ([facility]) Heart rate 84 /min 84 /min [facility] ([facility]) Respiratory rate 16 /min 16 /min [facility] ( [facility]) Systolic blood pressure 110 mm[Hg] 110 mm[Hg] [facility] ([facility]) Body weight 185.00 [lb_av] 185.00 [lb_av] MED[facility] T ([facility]) Body mass index (BMI) [Ratio] 29.0 kg/m2 29.0 k g/m2 [facility] ([facility]) [place] body weight 135 [lb_av] 135 [lb_av] MED[facility] T ([facility]) Body weight 83.916 kg 83.916 kg [facility] ([facility]) Body surface area Derived from formula 1.96 m2 1.96 m2 [facility] ([facility]) Body height 67 [in_i] 67 [in_i] [facility] ([facility]) 5'7" Body weight 186 [lb_av] 186 [lb_av] eCW1 ([facility]) Body mass index (BMI) [Ratio] 29.13 kg/m2 29.13 kg/m2 eCW1 ([facility]) Body weight 84.37 kg 84.37 kg eCW1 ([facility]) Body height 67 [in_i] 67 [in_i] eCW1 ([facility]) Systolic blood pressure 130 mm[Hg] 130 mm[Hg] e CW1 ([facility]) Diastolic blood pressure 82 mm[Hg] 82 mm[Hg] eCW1 ([facility]) Body temperature 97.5 [degF] 97.5 [degF] eCW1 ( [facility]) Body weight 190.2 [lb_av] 190.2 [lb_av] eCW1 ([facility]) Systolic blood pressure 108 mm[Hg] 108 mm[Hg] e CW1 ([facility]) Body height 67 [in_i] 67 [in_i] eCW1 ([facility]) Body mass index (BMI) [Ratio] 29.79 kg/m2 29.79 kg/m2 W1 ([facility]) Heart rate 95 /min 95 /min eCW1 ([facility]) Diastolic blood pressure 74 mm[Hg] 74 mm[Hg] eCW1 ([facility]) Respiratory rate 18 /min 18 /min eCW1 ([facility]) Systolic blood pressure 110 mm[Hg] 110 mm[Hg] M EDENT ([facility], ) Diastolic blood pressure 80 mm[Hg] 80 mm[Hg] [facility] ([facility], ) Heart rate 76 /min 76 /min [facility] ([facility], ) Respiratory rate 16 /min 16 /min MED[facility] ( [facility], ) Body height 67 [in_i] 67 [in_i] MEDENT ([facility], ) 5'7" Body weight 194.00 [lb_av] 194.00 [lb_av] MEDEN T ([facility], ) Body mass index (BMI) [Ratio] 30.4 kg/m2 30.4 k g/m2 [facility] ([facility]) [place] body weight 135 [lb_av] 135 [lb_av] MEDEN T ([facility]) Body weight 87.998 kg 87.998 kg [facility] ([facility]) Body surface area Derived from formula 2.00 m2 2.00 m2 [facility] ([facility]) Body height 67 [in_i] 67 [in_i] [facility] ([facility]) 5'7" [place] body weight 135 [lb_av] 135 [lb_av] MEDEN T ([facility]) Systolic blood pressure 122 mm[Hg] 122 mm[facility]Hg] [facility] Diastolic blood pressure 68 mm[Hg] 68 mm[Hg] [facility] ([facility]) Body weight 194.00 [lb_av] 194.00 [lb_av] MEDEN T ([facility]) Body weight 87.998 kg 87.998 kg [facility] ([facility]) Body mass index (BMI) [Ratio] 30.4 kg/m2 30.4 k g/m2 [facility] ([facility]) Body surface area Derived from formula 2.00 m2 2.00 m2 [facility] ([facility]) Oxygen saturation in Arterial blood by Pulse oximetry 98 % 98 % [facility] ([facility]) Diastolic blood pressure 88 mm[Hg] 88 mm[Hg] [facility] ([facility]) Heart rate 62 /min 62 /min [facility] ([facility]) [place] body weight 130 [lb_av] 130 [lb_av] MEDEN T ([facility]) Body temperature 96.2 [degF] 96.2 [degF] [facility] ([facility]) Body height 66 [in_i] 66 [in_i] [facility] ([facility]) 5'6" Body weight 192.00 [lb_av] 192.00 [lb_av] MEDEN T ([facility]) Body mass index (BMI) [Ratio] 31.0 kg/m2 31.0 k g/m2 [facility] ([facility]) Systolic blood pressure 120 mm[Hg] 120 mm[facility]Hg] [facility] Body surface area Derived from formula 1.97 m2 1.97 m2 [facility] ([facility]) Body weight 87.091 kg 87.091 kg [facility] ([facility]) Oxygen saturation in Arterial blood by Pulse oximetry 98 % 98 % [facility] ([facility]) Body temperature 96.2 [degF] 96.2 [degF] [facility] ([facility]) Body height 66 [in_i] 66 [in_i] [facility] ([facility]) 5'6" Body weight 192.00 [lb_av] 192.00 [lb_av] MEDEN T ([facility]) Body mass index (BMI) [Ratio] 31.0 kg/m2 31.0 k g/m2 [facility] ([facility]) [place] body weight 130 [lb_av] 130 [lb_av] MEDEN T ([facility]) Body weight 87.091 kg 87.091 kg [facility] ([facility]) Body surface area Derived from formula 1.97 m2 1.97 m2 [facility] ([facility]) Body height 66 [in_i] 66 [in_i] [facility] ([facility]) 5'6" Body weight 185.00 [lb_av] 185.00 [lb_av] MEDEN T ([facility]) Systolic blood pressure 96 mm[Hg] 96 mm[Hg] [facility] Diastolic blood pressure 74 mm[Hg] 74 mm[Hg] [facility] ([facility]) Heart rate 75 /min 75 /min [facility]) Body mass index (BMI) [Ratio] 29.9 kg/m2 29.9 k g/m2 [facility] ([facility]) Body weight 83.916 kg 83.916 kg [facility] ([facility]) Body temperature 96.6 [degF] 96.6 [degF] [facility] ([facility]) Body weight 185 [lb_av] 185 [lb_av] eCW1 ([facility]) Body height 67 [in_i] 67 [in_i] eCW1 ([facility]) Body mass index (BMI) [Ratio] 28.97 kg/m2 28.97 kg/m2 eCW1 ([facility]) Heart rate 74 /min 74 /min eCW1 ([facility]) Respiratory rate 18 /min 18 /min eCW1 ([facility]) Body temperature 97.1 [degF] 97.1 [degF] eCW1 ( [facility]) Systolic blood pressure 102 mm[Hg] 102 mm[Hg] e CW1 ([facility]) Diastolic blood pressure 66 mm[Hg] 66 mm[Hg] eCW1 ([facility]) Body weight 186.4 [lb_av] 186.4 [lb_av] eCW1 ([facility]) Body height 67 [in_i] 67 [in_i] eCW1 ([facility]) Body mass index (BMI) [Ratio] 29.19 kg/m2 29.19 kg/m2 eCW1 ([facility]) Heart rate 94 /min 94 /min eCW1 ([facility]) Respiratory rate 18 /min 18 /min eCW1 ([facility]) Diastolic blood pressure 80 mm[Hg] 80 mm[Hg] eCW1 ([facility]) Body temperature 96.3 [degF] 96.3 [degF] eCW1 ( [facility]) Systolic blood pressure 130 mm[Hg] 130 mm[Hg] e CW1 ([facility]) Body weight 200 [lb_av] 200 [lb_av] eCW1 ([facility]) Body height 67 [in_i] 67 [in_i] eCW1 ([facility]) Body mass index (BMI) [Ratio] 31.32 kg/m2 31.32 kg/m2 eCW1 ([facility]) Heart rate 84 /min 84 /min eCW1 ([facility]) Respiratory rate 17 /min 17 /min eCW1 ([facility]) Body temperature 97.4 [degF] 97.4 [degF] eCW1 ( [facility]) Systolic blood pressure 112 mm[Hg] 112 mm[Hg] e CW1 ([facility]) Diastolic blood pressure 74 mm[Hg] 74 mm[Hg] eCW1 ([facility]) Systolic blood pressure 104 mm[Hg] 104 mm[Hg] M EDENT ([facility]) Diastolic blood pressure 82 mm[Hg] 82 mm[Hg] [facility] ([facility]) Heart rate 75 /min 75 /min [facility] ([facility]) Oxygen saturation in Arterial blood by Pulse oximetry 95 % 95 % [facility] ([facility]) Body temperature 96.5 [degF] 96.5 [degF] [facility] ([facility]) Body height 66 [in_i] 66 [in_i] [facility] ([facility]) 5'6" Body weight 179.00 [lb_av] 179.00 [lb_av] [facility] ([facility]) Body mass index (BMI) [Ratio] 28.9 kg/m2 28.9 k g/m2 [facility] ([facility]) [place] body weight 130 [lb_av] 130 [facility]_av] [facility] Body weight 81.194 kg 81.194 kg [facility] ([facility] Body surface area Derived from formula 1.91 m2 1.91 m2 [facility] ([facility]) Respiratory rate 16 /min 16 /min [facility] ( [facility]) Systolic blood pressure 110 mm[Hg] 110 mm[facility]Hg] [facility] Diastolic blood pressure 70 mm[Hg] 70 mm[Hg] [facility] ([facility]) Heart rate 68 /min 68 /min [facility] ([facility]) ID Date Data Source [id number] 03/03/2020 10:35:00 AM EST [facility] Name Value Range Interpretation Code Description Data Source(s) Weight Measurement Method 8 8 [facility] Weight 3360 3360 [facility] pital Temperature Source 3 3 [facility] Temperature 96.0 96.0 [facility] spital Respiratory Effort 1 1 [facility] Respiratory Rate 18 18 [facility] Pulse Assessment Method 4 4 G [facility] Pulse Rate 84 84 [facility]/80 95/80 [facility] Weight Measurement Method 8 8 [facility] Weight 3360 3360 [facility] pital Temperature Source 3 3 [facility] Temperature 96.0 96.0 [facility] spital Respiratory Effort 1 1 [facility] Respiratory Rate 18 18 [facility] Pulse Assessment Method 4 4 G [facility] Pulse Rate 84 84 [facility] pital Height 66 66 [facility] Blood Pressure 95/80 95/80 [facility] ID Date Data Source [id number] 01/20/2020 03:57:01 PM [facility] Name Value Range Interpretation Code Description Data Source(s) WEIGHT RECORDED 204.9 lb 204.9 lb [facility] Body height Measured 67.2 in 67.2 in [facility] Patient Treatment Plan of Care Planned Activity Planned Date Details Description Data Source (s) Azelastine HCl 0.15 % 04/27/2020 12:00:00 AM EST [facility] ([facility]) Azelastine HCl 0.15 % 04/27/2020 12:00:00 AM EST eCW1 ([facility]) Sodium Chloride 0.111 MEQ/ML Nasal [place] 03/10/2020 12:00:00 AM EST [facility] ([facility]) Fluticasone Propionate 50 MCG/ACT 02/22/2020 12:00:00 AM EST eC ([facility]) Fluticasone Propionate 50 MCG/ACT 02/22/2020 12:00:00 AM EST [facility] ([facility]) Acetaminophen 325 MG Oral Tablet 01/11/2020 07:53:09 AM [facility] Bisacodyl 10 MG Rectal Suppository 01/11/2020 07:53:09 AM [facility] alginic acid 200 MG / Calcium Carbonate 80 MG / magnesium trisilicate 20 MG / Sodium Bicarbonate 70 MG Oral Tablet 01/11/2020 07:53:09 AM [facility] Diphenhydramine Hydrochloride 25 MG Oral Capsule 01/11/2020 07:53:0 9 AM [facility] Ibuprofen 200 MG Oral Tablet 01/11/2020 07:53:09 AM [facility] Magnesium Hydroxide 80 MG/ML Oral Suspension 01/11/2020 07:53:09 AM [facility] Ondansetron 4 MG Oral Tablet 01/11/2020 07:53:09 AM [facility] drospirenone 3 MG / Ethinyl Estradiol 0.02 MG Oral Tab let 01/04/2020 12:00:00 AM [facility] ospital lamotrigine 200 MG Oral Tablet 12/27/2019 12:00:00 AM [facility] 24 HR venlafaxine 37.5 MG Extended Release Oral Capsul e 12/27/2019 12:00:00 AM [facility] ospital Hydroxyzine Hydrochloride 25 MG Oral Tablet 12/27/2019 12:00:00 AM [facility] aripiprazole 20 MG Oral Tablet 12/27/2019 12:00:00 AM [facility] buspirone hydrochloride 10 MG Oral Tablet 12/23/2019 12:00:00 AM [facility] 24 HR venlafaxine 75 MG Extended Release Oral Capsule 12/20/2019 12:00:00 AM [facility] ospital
--- OUTSIDE RECORDS SUMMARY | 2020-12-23 20:31 | CCD ---
Author Author [facility] Address Unknown Phone Unavailable Care Team Providers Care Retail Maintenance Technician Name Role Phone Michelle Pretty MD Unavailable Unavailable Michelle Pretty MD Unavailable Unavailable Michelle Pretty MD Unavailable Unavailable Michelle Pretty MD Unavailable Unavailable Michelle Pretty MD Unavailable Unavailable Michelle Pretty MD Unavailable Unavailable Michelle Pretty MD Unavailable Unavailable Michelle Pretty MD Unavailable Unavailable Michlele Pretty MD Unavailable Unavailable Michelle Pretty MD [...] Unavailable Unavailable Michelle Pretty MD Unavailable Unavailable Michlele Pretty MD Unavailable Unavailable Harry Mathews MD [...] Unavailable Unavailable Harry Mathews MD Unavailable Unavailable [place], F Steve PA Unavailable Unavailable Sonia, F Steve PA Unavailable Unavailable Sonia, F Steve PA Unavailable Unavailable [place], F Steve PA Unavailable Unavailable [place], F Steve PA Unavailable Unavailable Sonia, F Steve PA Unavailable Unavailable [place], F Steve PA Unavailable Unavailable Sonia, F Steve PA Unavailable Unavailable Sonia, F Steve PA Unavailable Unavailable [place], F Steve PA Unavailable Unavailable Hadian, Mor [...] Mor Unavailable Unavailable Hadian, Mor Unavailable Unavailable [place], Nadine PA Unavailable Unavailable Sergio, Nadine PA [...] is protected by Article 27-F of the [facility] Public Health law. If you continue you may have access to information: Regarding HIV / AIDS; Provided by facilities licensed or operated by the [facility] Office of Mental Health; or Provided by the [facility] Office for People With Developmental Disabilities. If such information is present, then the following [facility] mandated warning applies: This information has been [...] law may result in a fine or halfway sentence or both. A general authorization for the release of medical or other information is NOT sufficient authorization for further disc losure. Allergies and Adverse Reactions Type Description Substance Reaction Status Data Source(s ) Drug allergy Drug allergy No Known Allergies [facility] Propensity to adverse reactions NO KNOWN ALLERGIES NO KNOWN ALLERGIES [facility] Propensity to adverse reactions NKDA NKDA MEDENT ([facility]) Family History Family Member Name Family Member Gender Family Member Status Date o f Status Description Data Source(s) Unknown Male Problem MED[facility] ([facility] Unknown Male Problem MED[facility] ([facility]) Encounters Encounter Providers Location Date Indications Data Source(s ) Outpatient Attender: ZO[facility] GAO [facility] 11/28 12:00:00 PM EDT MED[facility] ([facility]) Outpatient Attender: ZOË GAO 11/28 11:49:00 AM EDT - 11/28/2020 11:49:00 AM EDT [facility] Outpatient Attender: Michelle Jarvis/Stacy/Lonnie/Ariel ndl 11/25/2020 09:30:00 AM EDT MEDENT ([facility] ) Outpatient Attender: ARIS PATRICIA [facility] 10/09 10:45:00 AM EDT MEDENT ([facility] Outpatient Attender: Meli GAO [facility] 10/24/2020 10:45:00 AM EDT MEDENT ([facility]) Outpatient Attender: CATHLEEN Jarvis/Stacy/Ang el/Reindl 10/06/2020 11:40:00 AM EDT MED[facility] ([facility] ) Outpatient Attender: ZOË GAO 09/06 09:07:00 AM EDT - 09/06/2020 09:07:00 AM EDT [facility] ( GYNANN) [facility] 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 [address] [place] [address] 09/06/2020 12:00:00 AM EDT eCW1 ([facility]) Unknown [address] [facility] [address] 08/26/2020 12:00:00 AM EDT eCW1 ([facility]) Unknown [address] [facility] [address] 08/22/2020 12:00:00 AM EDT eCW1 ([facility]) Outpatient Attender: ZOË GAO 08/01 12:22:00 PM EDT - 08/01/2020 12:22:00 PM EDT [facility] Outpatient Attender: Z[facility]O [facility] 08/01 12:00:00 PM EDT [facility] ([facility] [place] [address] [facility] [address] 07/26/2020 12:00:00 AM EDT eCW1 ([facility]) Outpatient Attender: Meli GAO Main office - [facility] 07/22/2020 08:00:00 AM EDT MEDENT ([facility]) Outpatient Attender: ARIS PATRICIA [facility] Office 07/09 10:45:00 AM EDT MEDENT ([facility] Outpatient Attender: CATHLEEN Jarvis/Stacy/Abe reeves/Reintriny 06/16/2020 08:30:00 AM EDT MED[facility] ([facility]) [place] [address] [facility] [address] 06/14/2020 12:00:00 AM EDT eCW1 ([facility]) Outpatient Attender: Michelle Jarvis/Stacy/Lonnie/Ariel ndl 06/13/2020 11:00:00 AM EDT MEDENT ([facility]) Outpatient Attender: Gregorio Mathews MD Main Office 05/26/2020 11:00:00 AM EDT MEDENT ([facility]) Outpatient Attender: ZOË GAO 05/06 12:29:00 PM EST - 05/06/2020 12:29:00 PM EST [facility] Outpatient Attender: ZOË GAO [facility] 05/06 11:20:00 AM EST [facility] Office Visit Attender: Meli GAO Main [facility] 05/03/2020 07:45:00 AM EST MEDENT ([facility], ) Outpatient [address] [facility] [address] 04/27/2020 12:00:00 AM EST eCW1 [facility] Outpatient Attender: ARIS PATRICIA [facility] Office 04/11 09:45:00 AM EST [facility] ([facility] Unknown [address] [facility] [place] [address] 04/11/2020 12:00:00 AM EST eCW1 ([facility]) Unknown [address] [facility] [place] [address] 04/08/2020 12:00:00 AM EST [facility] Unknown [address] [facility] [place] [address] 04/01/2020 12:00:00 AM EST [facility] Unknown [address] [facility] [place] [address] 03/30/2020 12:00:00 AM EST [facility] Outpatient [address] [facility] [place] [address] 2020 12:00:00 AM EST [facility]) Outpatient Attender: ZOË GAO 03/25 01:23:00 PM EST - 03/25/2020 01:23:00 PM EST [facility] Outpatient Attender: ZOË GAO [facility] 03/25 12:20:00 PM EST [facility] Unknown [address] [facility] [place] [address] 03/25/2020 12:00:00 AM EST [facility] Outpatient [address] [facility] [place] [address] 03/10/2020 12:00:00 AM EST [facility] Outpatient Attender: Mor Braun ED-LABPNP 11:34:00 AM EST - 03/09/2020 11:35:00 AM EST REQUIRED [facility] REQUIRED [facility] Patient discharged. Outpatient Attender: Mor Braun ED-LABPNP 0 10:53:00 AM EST - 03/03/2020 10:54:00 AM EST RETURN TO [facility] RETURN TO [facility] Patient discharged. Emergency Attender: Steve GAO ED-ED 09:05:00 AM EST - 03/03/2020 10:00:00 AM EST ITCHING [facility] ITCHING Patient discharged. Unknown [address] [facility] [address] 02/29/2020 12:00:00 AM EST [facility] Unknown [address] [facility] [place] [address] 02/22/2020 12:00:00 AM EST eCW1 ([facility]) [facility] 02/11/2020 03:27:00 PM EST [facility] Outpatient Attender: Mor Braun ED-LABPNP 0 11:54:00 AM EST - 02/11/2020 11:55:00 AM EST NEED TO RETURN TO [facility] NEED TO RETURN TO [facility] Patient discharged. Unknown [address] [facility] [place] [address] 02/10/2020 12:00:00 AM EST eCW1 ([facility]) Outpatient Attender: ZOË GAO 02/07 11:28:00 AM EST - 02/08/2020 11:28:00 AM EST [facility] Outpatient Attender: ZOË GAO Family Practice 02/07 10:20:00 AM EST [facility] ([facility] Office Visit Attender: Meli GAO [facility] 02/01/2020 07:45:00 AM EST MEDENT ([facility] ) Outpatient Attender: ARIS PATRICIA [facility] Office 01/09 10:00:00 AM EST MED[facility] ([facility] Inpatient Attender: SHEILA BURDENOFFAdm itter: SHEILA BURDENOFFReferrer: Meli GAO [id number] 01/11/2020 12:00:00 AM EST - 01/15/2020 03:10:00 PM EST Localization-related (focal) (partial) symptomatic epilepsy and epileptic syndromes with simple partial seizures, not intractable, without status epilepticus [facility] Localization-related (focal) (partial) s ymptomatic epilepsy and epileptic syndromes with simple partial seizures, not intractable, without status epilepticus Patient discharged. Outpatient Attender: Nadine GAO ED-LABPNP 01/10/2020 02:14:00 P M EST PREOP [facility] PREOP Outpatient Attender: Nadine GAO ED-LABPNP 01/06/2020 08:0 0:00 AM EDT PRE OP [facility] PRE OP Outpatient Attender: ZOË GAO 12/28 10:23:00 AM EDT - 12/29/2019 10:23:00 AM EDT [facility] Outpatient Attender: Nadine GAO CPSCAORT-LABPNP 12/29/2019 0 8:00:00 AM EDT COVID SCREENING [facility] COVID SCREENING Outpatient Attender: Meli GAO [facility] 10/30/2019 08:30:00 AM EDT MEDENT ([facility]) Immunizations Vaccine Date Status Description Data Source(s) COVID-19 VACCINE Pfizer 04/05/2020 12:00:00 AM EST completed [facility] Vaccine Series Complete: YESThis Data wa s Submitted to [facility]. COVID-19 VACCINE Pfizer 03/15/2020 12:00:00 AM EST completed [facility] Vaccine Series Complete: NOThis Data was Submitted to [facility]. INFLUENZA VIRUS VACCINE QUADRIVALENT (6 MOS AN D UP) 01/06/2020 12:00:00 AM EDT completed [facility] Medications Medication Brand Name Start Date Product Form Dose Route Admi nistrative Instructions Pharmacy Instructions Status Indications Reaction Description Data Source(s) buspirone hydrochloride 10 MG Oral Tablet Buspirone HCL 09/20/2020 12:00:00 AM EDT ORAL active MEDENT ([facility]) buspirone hydrochloride 15 MG Oral Tablet Buspirone HCL 09/06/2020 12:00:00 AM EDT ORAL completed MEDENT ([facility]) Clotrimazole 10 MG/ML Topical Cream Clotrimazole 07/19/2020 12:00:00 AM EDT active [facility] ([facility] Ursodiol 300 MG Oral Capsule Ursodiol 06/23/2020 12:00:00 AM EDT ORAL active MEDENT ([facility] ) Ciprofloxacin 500 MG Oral Tablet [Cipro] Cipro 06/23/2020 12:00:00 AM EDT completed MEDENT ([facility], ) aripiprazole 10 MG Oral Tablet Aripiprazole 06/20/2020 12:00:00 AM EDT ORAL active MEDENT ([facility]) Levetiracetam 500 MG Oral Tablet Levetiracetam 06/09/2020 12:00:00 AM EDT ORAL active MEDENT ([facility]) Levetiracetam 750 MG Oral Tablet Levetiracetam 05/11/2020 12:00:00 AM EST ORAL completed [facility] ([facility]) Azelastine HCl 0.15 % Azelastine HCl 0.15 % 04/27/2020 12:00:00 AM EST 2.0 {sprays_in_each_nostril} active Azelast ine HCl 0.15 % eCW1 ([facility]) Azelastine HCl 0.15 % Azelastine HCl 0.15 % 04/27/2020 12:00:00 AM EST 2.0 {sprays_in_each_nostril} active Azelast ine HCl 0.15 % eCW1 ([facility]) ammonium lactate 120 MG/ML Topical Cream Ammonium Lactate 04/26/2020 12:00:00 AM EST active [facility] ([facility] Levetiracetam 500 MG Oral Tablet Levetiracetam 04/12/2020 12:00:00 AM EST ORAL completed [facility] ([facility]) Hydroxyzine Hydrochloride 50 MG Oral Tablet Hydroxyzine HCL 03/25/2020 12:00:00 AM EST ORAL active MEDENT ([facility]) Sodium Chloride 0.111 MEQ/ML Nasal Bruno Saline Nasal Bruno 0.65 % Saline Nasal Bruno 0.65 % 03/10/2020 12:00:00 AM EST activ e Saline Nasal Bruno 0.65 % eCW1 ([facility]) Sodium Chloride 0.111 MEQ/ML Nasal Bruno Saline Nasal Bruno 0.65 % Saline Nasal Bruno 0.65 % 03/10/2020 12:00:00 AM EST activ e Saline Nasal Bruno 0.65 % eCW1 ([facility]) Sodium Chloride 0.111 MEQ/ML Nasal Bruno Saline Nasal Bruno 0.65 % Saline Nasal Bruno 0.65 % 03/10/2020 12:00:00 AM EST activ e Saline Nasal Bruno 0.65 % eCW1 ([facility]) Sodium Chloride 0.111 MEQ/ML Nasal Bruno Saline Nasal Bruno 0.65 % Saline Nasal Bruno 0.65 % 03/10/2020 12:00:00 AM EST activ e Saline Nasal Bruno 0.65 % eCW1 ([facility]) Sodium Chloride 0.111 MEQ/ML Nasal Bruno Saline Nasal Bruno 0.65 % Saline Nasal Bruno 0.65 % 03/10/2020 12:00:00 AM EST activ e Saline Nasal Bruno 0.65 % eCW1 ([facility]) Sodium Chloride 0.111 MEQ/ML Nasal Bruno Saline Nasal Bruno 0.65 % Saline Nasal Bruno 0.65 % 03/10/2020 12:00:00 AM EST activ e Saline Nasal Bruno 0.65 % eCW1 ([facility]) Sodium Chloride 0.111 MEQ/ML Nasal Bruno Saline Nasal Bruno 0.65 % Saline Nasal Bruno 0.65 % 03/10/2020 12:00:00 AM EST activ e Saline Nasal Bruno 0.65 % eCW1 ([facility]) Sodium Chloride 0.111 MEQ/ML Nasal Bruno Saline Nasal Bruno 0.65 % Saline Nasal Bruno 0.65 % 03/10/2020 12:00:00 AM EST activ e Saline Nasal Bruno 0.65 % eCW1 ([facility]) Sodium Chloride 0.111 MEQ/ML Nasal Bruno Saline Nasal Bruno 0.65 % Saline Nasal Bruno 0.65 % 03/10/2020 12:00:00 AM EST activ e Saline Nasal Bruno 0.65 % eCW1 ([facility]) Sodium Chloride 0.111 MEQ/ML Nasal Bruno Saline Nasal Bruno 0.65 % Saline Nasal Bruno 0.65 % 03/10/2020 12:00:00 AM EST activ e Saline Nasal Bruno 0.65 % eCW1 ([facility]) Sodium Chloride 0.111 MEQ/ML Nasal Bruno Saline Nasal Bruno 0.65 % Saline Nasal Bruno 0.65 % 03/10/2020 12:00:00 AM EST activ e Saline Nasal Bruno 0.65 % eCW1 ([facility]) Sodium Chloride 0.111 MEQ/ML Nasal Bruno Saline Nasal Bruno 0.65 % Saline Nasal Bruno 0.65 % 03/10/2020 12:00:00 AM EST activ e Saline Nasal Bruno 0.65 % eCW1 ([facility]) Sodium Chloride 0.111 MEQ/ML Nasal Bruno Saline Nasal Bruno 0.65 % Saline Nasal Bruno 0.65 % 03/10/2020 12:00:00 AM EST activ e Saline Nasal Bruno 0.65 % eCW1 ([facility]) Sodium Chloride 0.111 MEQ/ML Nasal Bruno Saline Nasal Bruno 0.65 % Saline Nasal Bruno 0.65 % 03/10/2020 12:00:00 AM EST activ e Saline Nasal Bruno 0.65 % eCW1 ([facility]) Sodium Chloride 0.111 MEQ/ML Nasal Bruno Saline Nasal Bruno 0.65 % Saline Nasal Bruno 0.65 % 03/10/2020 12:00:00 AM EST activ e Saline Nasal Bruno 0.65 % eCW1 ([facility]) Sodium Chloride 0.111 MEQ/ML Nasal Bruno Saline Nasal Bruno 0.65 % Saline Nasal Bruno 0.65 % 03/10/2020 12:00:00 AM EST activ e Saline Nasal Bruno 0.65 % eCW1 ([facility]) Sodium Chloride 0.111 MEQ/ML Nasal Bruno Saline Nasal Bruno 0.65 % Saline Nasal Bruno 0.65 % 03/10/2020 12:00:00 AM EST activ e Saline Nasal Bruno 0.65 % eCW1 ([facility]) Sodium Chloride 0.111 MEQ/ML Nasal Bruno Saline Nasal Bruno 0.65 % Saline Nasal Bruno 0.65 % 03/10/2020 12:00:00 AM EST activ e Saline Nasal Bruno 0.65 % eCW1 ([facility]) Sodium Chloride 0.111 MEQ/ML Nasal Bruno Saline Nasal Bruno 0.65 % Saline Nasal Bruno 0.65 % 03/10/2020 12:00:00 AM EST activ e Saline Nasal Bruno 0.65 % eCW1 ([facility]) Sodium Chloride 0.111 MEQ/ML Nasal Bruno Saline Nasal Bruno 0.65 % Saline Nasal Bruno 0.65 % 03/10/2020 12:00:00 AM EST activ e Saline Nasal Bruno 0.65 % eCW1 ([facility]) Sodium Chloride 0.111 MEQ/ML Nasal Bruno Saline Nasal Bruno 0.65 % Saline Nasal Bruno 0.65 % 03/10/2020 12:00:00 AM EST activ e Saline Nasal Bruno 0.65 % eCW1 ([facility]) Sodium Chloride 0.111 MEQ/ML Nasal Bruno Saline Nasal Bruno 0.65 % Saline Nasal Bruno 0.65 % 03/10/2020 12:00:00 AM EST activ e Saline Nasal Bruno 0.65 % eCW1 ([facility]) 20 mg 03/03/2020 12:00:00 AM EST tablet 8 TAKE TWO TABLETS BY MOUTH ONCE DAILY TAKE TWO TABLETS BY MOUTH ONCE DAILY SOLD: 03/03/2020 [facility] Fluticasone Propionate 50 MCG/ACT Fluticasone Propionate 50 MCG/ACT 02/22/2020 12:00:00 AM EST 1.0 {spray_in_each_nostril} acti ve Fluticasone Propionate 50 MCG/ACT eCW1 ([facility]) Fluticasone Propionate 50 MCG/ACT Fluticasone Propionate 50 MCG/ACT 02/22/2020 12:00:00 AM EST 1.0 {spray_in_each_nostril} acti ve Fluticasone Propionate 50 MCG/ACT eCW1 ([facility]) Divalproex Sodium 125 MG Delayed Release Oral Capsule [Depakote] Depakote Patricioles 02/08/2020 12:00:00 AM EST completed MEDENT ([facility]) Divalproex Sodium 125 MG Delayed Release Oral Capsule Divalp roex Sodium 02/08/2020 12:00:00 AM EST ORAL active MEDENT ([facility]) 24 HR Divalproex Sodium 500 MG Extended Release Oral T ablet [Depakote] Depakote ER 02/01/2020 12:00:00 AM EST ORAL completed MEDENT ([facility]) Hydroxyzine Hydrochloride 50 MG Oral Tablet hydrOXYzin e (ATARAX) tablet 25 mg hydrOXYzine (ATARAX) tablet 25 mg 01/14/2020 06:15:00 PM EST 25 mg Oral completed 25 mg, Oral, Once, Sat01/14/20 a t 1815, For 1 dose [facility] Medication administered onsite lamotrigine 100 MG Oral Tablet lamoTRIgine (LaMICtal) tablet 400 mg lamoTRIgine (LaMICtal) tablet 400 mg 01/14/2020 11:30:00 AM EST 400 mg Oral active 400 mg, Oral, 2 Times Daily, First dose on Sat01/14/20 at 1130, For 30 days [facility] Medication administered onsite lamotrigine 100 MG Oral Tablet lamoTRIgine (LaMICtal) tablet 200 mg lamoTRIgine (LaMICtal) tablet 200 mg 01/13/2020 09:00:00 PM EST 200 mg Oral active 200 mg, Oral, Once, Sat01/13/20 at 2100, For 1 dose [facility] Medication administered onsite diazePAM (VALIUM) injection 5 mg 0469-5152-05 01/13/2020 12:54:25 PM EST 5 mg Intravenous aborted 5 mg, Intrave nous, Once PRN, Give for 1st GTC, Starting Sat01/13/20 at 1254, For 4 days
Give indicated order dose for 1st GTC
[facility] Medication administered onsite lamotrigine 100 MG Oral Tablet lamoTRIgine (LaMICtal) tablet 200 mg lamoTRIgine (LaMICtal) tablet 200 mg 01/12/2020 09:00:00 PM EST 200 mg Oral active 200 mg, Oral, 2 Times Daily, First dose (after last reorder) on Sat01/12/20 at 2100, For 1 dose [facility] Medication administered onsite lamotrigine 100 MG Oral Tablet lamoTRIgine (LaMICtal) tablet 200 mg lamoTRIgine (LaMICtal) tablet 200 mg 01/12/2020 01:00:00 PM EST 200 mg Oral active 200 mg, Oral, Once, Sat01/12/20 at 1300, For 1 dose [facility] Medication administered onsite lamotrigine 100 MG Oral Tablet lamoTRIgine (LaMICtal) tablet 200 mg lamoTRIgine (LaMICtal) tablet 200 mg 01/12/2020 10:00:00 AM EST 200 mg Oral active 200 mg, Oral, 2 Times Daily, First dose (after last modification) on Sat01/12/20 at 1000, For 1 dose [facility] Medication administered onsite drospirenone 3 MG / [...] Own medication being used for this order
[facility] Medication administered onsite cetirizine hydrochloride 10 MG Oral Tablet cetirizine (ZYRTEC) tablet 10 mg cetirizine (ZYRTEC) tablet 10 mg 01/12/2020 09:00:00 AM EST 10 mg Oral active 10 mg, Oral, Daily Standard, First dose on Sat01/12/20 at 0900, For 30 days [facility] Medication administered onsite Cholecalciferol 1000 UNT Oral Tablet vit oconnell D3 (CHOLECALCIFEROL) tablet 2,000 Units vitamin D3 (CHOLECALCIFEROL) tablet 2,000 Units 2019 09:00:00 AM EST 2000 U Oral active 2,000 Un its, Oral, Daily Standard, First dose on Sat01/12/20 at 0900, For 20 days
25 mcg vitamin D3 = 1,000 international units vitamin D3.
[facility] Medication administered onsite 24 HR venlafaxine 37.5 [...] XR 75 mg to get 112.5 mg
[facility] Medication administered onsite 24 HR venlafaxine 75 [...] XR 37.5 mg to get 112.5 mg
[facility] Medication administered onsite lamotrigine 100 MG Oral Tablet lamoTRIgine (LaMICtal) tablet 400 mg lamoTRIgine (LaMICtal) tablet 400 mg 01/11/2020 09:00:00 PM EST 400 mg Oral active 400 mg, Oral, 2 Times Daily, First dose on Sat01/11/20 at 2100, For 1 dose [facility] Medication administered onsite buspirone hydrochloride 10 MG Oral Tablet busPIRone (B USPAR) tablet 10 mg busPIRone (BUSPAR) tablet 10 mg 01/11/2020 09:00:00 PM EST 10 mg O ral active 10 mg, Oral, 2 Times Daily, First dose on Sat01/11/20 at 2100, For 30 days [facility] Medication administered onsite aripiprazole 10 MG Oral [...] on Sat01/11/20 at 1600, For 30 days [facility] Medication administered onsite hypromellose 0.003 MG/MG Ophthalmic Gel hypromellose (GENTEAL) 0.3 % ophthalmic gel 1 drop hypromellose (GENTEAL) 0.3 % ophthalmic gel 1 drop 04/2019 10:45:00 AM EST 1 [drp] Both Eyes active 1 drop, Both Eyes, 2 Times Daily, First dose (after last modification) on Sat01/11/20 at 1045, For 30 days [facility] Medication administered onsite sodium chloride (preservative free) [...] 0753, For 30 days [Order 6 End] [facility] Medication administered onsite senna tablet 2 tablet [...] on the third day.
[Order 2 End] [facility] Medication administered onsite Acetaminophen 325 MG Oral [...] mg from all sources in 24 hours.
[facility] Medication administered onsite Ondansetron 4 MG Oral Tablet ondansetron (ZOFRAN) tabl et 4 mg ondansetron (ZOFRAN) tablet 4 mg 01/11/2020 07:53:09 AM EST 4 mg Oral active 4 mg, Oral, Every 8 hours PRN, Nausea, Starting Sat01/11/20 at 0753, For 30 days [facility] Medication administered onsite Magnesium Hydroxide 80 MG/ML Oral Suspen mary magnesium hydroxide (MILK OF MAGNESIA) 400 MG/5ML suspension 45 mL magnesium hydroxide (MILK OF MAGNESIA) 4 00 MG/5ML suspension 45 mL 01/11/2020 07:53:09 AM EST 45 mL Oral active 45 mL, Oral, Nightly PRN, Constipation, Starting Sat01/11/20 at 0753, For 30 days
If serum creatinine > 2 notify provider before administering.
[facility] Medication administered onsite alginic acid 200 MG / Calcium Carbonate 80 MG / magnesium trisilicate 20 MG / Sodium Bicarbonate 70 MG Oral Tablet calcium carbonate (TUMS) chewable tablet 500 mg calcium carbonate (TUMS) chewable tablet 500 mg 2019 07:53:09 AM EST 500 mg Oral active 500 mg, Oral, Daily PRN, Indigestion, Heartburn, Starting Sat01/11/20 at 0753, For 30 days [facility] Medication administered onsite Bisacodyl 10 MG Rectal Suppository bisacodyl (DULCOLAX ) suppository 10 mg bisacodyl (DULCOLAX) suppository 10 mg 01/11/2020 07:53:09 AM EST 10 mg Rectal active 10 mg, Rectal, Every 72 hours PRN, Constipation, Starting Sat01/11/20 at 0753, For 30 days
Hold if patient has had a BM in the past 2 days.
[facility] Medication administered onsite Ibuprofen 200 MG Oral Tablet ibuprofen (MOTRIN) tablet 200 mg ibuprofen (MOTRIN) tablet 200 mg 01/11/2020 07:53:09 AM EST 200 mg Oral acti ve 200 mg, Oral, Every 6 hours PRN, Mild Pain (Pain Scale Score 1-3), Fever, Starting Sat01/11/20 at 0753, For 30 days
Take with food.
[facility] Medication administered onsite Diphenhydramine Hydrochloride 25 MG Oral Capsule diphenhydrAMINE (BENADRYL) capsule 25 mg diphenhydrAMINE (BENADRYL) capsule 25 mg 01/11/2020 07 :53:09 AM EST 25 mg Oral active 25 mg, O ral, Every 6 hours PRN, Itching, Starting Sat01/11/20 at 0753, For 30 days [facility] Medication administered onsite drospirenone 3 MG / Ethinyl Estradiol 0. 02 MG Oral Tablet Drospirenone-Ethinyl Estradiol 3-0.02 MG Oral Tablet (GIANVI) Drospirenone-Ethinyl Estradiol 3-0.02 MG Oral Tablet (GIANVI) 01/04/2020 12:00:00 AM EDT 1 {tbl} Oral active Take 1 tablet by mouth daily [facility] MG Oral Tablet ARIPiprazole 20 MG Oral Tablet (ABILIFY) ARIPiprazole 20 MG Oral Tablet (ABILIFY) 12/27/2019 12:00:00 AM EDT 10 mg Oral active Take 10 mg by mouth Two Times Daily [facility] 24 HR venlafaxine 37.5 MG Extended Relea se Oral Capsule Venlafaxine HCl ER 37.5 MG Oral Capsule Extended Release 24 Hour (EFFEXOR-XR) Venlafaxine HCl ER 37.5 MG Oral Capsule Extended Release 24 Hour (EFFEXOR-XR) 12/27/2019 12:00:00 AM EDT 37.5 mg Oral active Take 37.5 mg by mouth daily Take with 75 mg capsule. XEG=309.5 mg. [facility] lamotrigine 200 MG Oral Tablet lamoTRIgine 200 MG Oral Tablet (LaMICtal) lamoTRIgine 200 MG Oral Tablet (LaMICtal) 12/27/2019 12:00:00 AM EDT 400 mg Oral active Take 400 mg by mouth Two Times Daily [facility] Hydroxyzine Hydrochloride 25 MG Oral Tab let hydrOXYzine HCl 25 MG Oral Tablet (ATARAX) hydrOXYzine HCl 25 MG Oral Tablet (ATARAX) 12/27/2019 12:00: 00 AM EDT 25 mg Oral active Take 25 mg by mo uth Three times daily [facility] buspirone hydrochloride 10 MG Oral Table t busPIRone HCl 10 MG Oral Tablet (BUSPAR) busPIRone HCl 10 MG Oral Tablet (BUSPAR) 12/23/2019 12:00:00 AM EDT 10 mg Oral active Take 10 mg by mouth Two Times Daily [facility] buspirone hydrochloride 10 MG Oral Tablet Buspirone HCL 12/23/2019 12:00:00 AM EDT ORAL active [facility] ([facility]) 24 HR venlafaxine 75 MG Extended Release Oral Capsule Venlafaxine HCl ER 75 MG Oral Capsule Extended Release 24 Hour (EFFEXOR-XR) Venlafaxine HCl ER 75 MG Oral Capsule Extended Release 24 Hour (EFFEXOR-XR) 12/20/2019 12:00:00 AM EDT 75 mg Oral active Take 75 mg by mouth daily Take with 37.5 mg capsule. TME=471.5 mg. [facility] aripiprazole 20 MG Oral Tablet Aripiprazole 10/26/2019 12:00:00 AM EDT ORAL active MED[facility] ([facility]) Insurance Providers Payer name Policy type / Coverage type Policy ID Covered green party ID Covered green party's relationship to delgado Policy Delgado Plan Information Cigna/MVP Medigap Part B [id number] Family Dependent [id number] BS [place] Medigap Part B [id number] Family Dependent V [id number] BCBS JAYDIANDRA SUDHA PPO 302/307 [id number] [id number] Medicare [place] Medicare Primary [id number] Self 1 [id number] MEDICARE [id number] SP [id number] MEDICARE A [id number] Self [id number] [place] [id number] 02674.0 Self [id number] MEDICAID [id number] SP [id number] MEDICARE [id number] SP [id number] MEDICAID M [id number] Self [id number] MEDICAID [id number] Medicaid [facility] [id number] Self [id number] Medicare Part B Medicare Primary [id number] Self [id number] Medicaid Medicaid [id number] Self [id number] Medicare Medicare Primary [id number] Self [id number] ANSI-Medicaid [id number] ANS-Medicare Part B [id number] ANSI-Commercial [id number] ANSI-Medicaid [id number] ANSI-Commercial [id number] [facility]-Medicare Part B [id number] Medicaid [facility] Part B [id number] 40.0 Self [id number] Medicare Part B Medicare Primary [id number] 2..[id number] Self [id number] Medicaid Medicaid [id number] S elf [id number] Medicare Medicare Primary [id number] 2.16.840.1.804003.3.227. [id number] Self [id number] ANSI-Medicaid [id number] ANSI-Medicare Part B [id number] ANSI-Commercial [id number] ANSI-Medicare Part B [id number] ANSI-Commercial [id number] ANSI-Medicaid [id number] ANSI-Medicare Part B [id number] ANSI-Commercial [id number] ANSI-Medicaid [id number] Medicaid [facility] Part B [id number] 40.0 Self [id number] Medicare Part B Medicare Primary [id number] [id number] Self [id number] *NOTFORTODAYSVISIT* SP *NOTFORTODAYSVISIT* Medicaid Medicaid [id number] [id number] S elf [id number] Medicare Medicare Primary [id number] 2.16.840.1.058652.3.227. 99.936.08278.0 Self [id number] ANSI-Medicaid [id number] ANSI-Medicare Part B [id number] ANSI-Commercial [id number] ANSI-Commercial [id number]-[id number] [id number] ANSI-Medicaid [id number] ANSI-Medicare Part B [id number] ANSI-Commercial [id number] ANSI-Medicaid [id number] ANSI-Medicare Part B [id number] ANSI-Medicaid [id number] ANSI-Medicare Part B [id number] ANSI-Commercial [id number] Medicaid [facility] Part B [id number] [id number] 40.0 Self [id number] Medicare Part B Medicare Primary [id number] 2.16.840.1.556836.3.227.99.1037.15561.0 Self [id number] MEDICARE [id number] ANSI-Commercial [id number] ANSI-Medicare Part B [id number] ANSI-Medicaid [id number] ANSI-Commercial [id number] ANSI-Medicare Part B [id number] ANSI-Medicaid [id number] ANSI-Commercial [id number] ANSI-Medicaid [id number] ANSI-Medicare Part B [id number] ANSI-Medicaid [id number] ANSI-Medicare Part B [id number] ANSI-Commercial [id number] ANSI-Medicare Part B [id number] ANSI-Commercial [id number] ANSI-Medicaid [id number] Medicaid Medigap Part B [id number] 40.0 Self [id number] Medicare Part B Medicare Primary [id number]..[id number] Self [id number] ANSI-Medicaid [id number] ANSI-Commercial [id number] ANSI-Medicare Part B [id number] ANSI-Commercial [id number] ANSI-Medicaid [id number] ANSI-Medicare Part B [id number] Medicaid Medigap Part B [id number]..[id number] 40.0 Self [id number] Medicare Part B Medicare Primary [id number] 2..[id number] Self [id number] Medicaid Medigap Part B [id number] 40.0 Self [id number] Medicare Part B Medicare Primary [id number] Self [id number] Medicaid Medigap Part B [id number] 40.0 Self [id number] Medicare Part B Medicare Primary [id number] Self [id number] Medicaid Medigap Part B [id number] 40.0 Self [id number] Medicare Part B Medicare Primary [id number] Self [id number] Medicaid Medigap Part B [id number] [id number] 40.0 Self [id number] Medicare Part B Medicare Primary [id number] 2.840.1.091[id number] Self [id number] Medicaid Medigap Part B [id number] [id number] 40.0 Self [id number] Medicare Part B Medicare Primary [id number] Self [id number] Medicaid Medigap Part B [id number] [id number] 40.0 Self [id number] Medicare Part B Medicare Primary [id number] Self [id number] Medicaid Medigap Part B [id number] 40.0 Self [id number] Medicare Part B Medicare Primary [id number] Self [id number] MEDICAID [id number] SP [id number] Medicare Part B Medicare Primary [id number] Self Medicaid Medicaid [id number] Self 1 1 Medicare Medicare Primary [id number] Self MEDICARE P [id number] S [id number] MEDICAID -O/P [id number] [place]UE [place]OSS -O/P [id number] 19 [id number] MEDICARE -O/P [id number] 18 [id number] MEDICAID -CLINIC [id number] [place] - CLINIC [id number] MEDICARE - CLINIC [id number] 18 [id number] [facility] MEDICAID [id number] SP [id number] M [id number] MEDICARE [id number] SP [id number] MEDICAID CO [id number] 18 [id number] MEDICARE CO [id number] 18 [id number] [place] [id number] SP [id number] MEDICARE C [id number] S [id number] MEDICAID M [id number] S [id number] MEDICAID [id number] S [id number] MEDICARE [id number] S [id number] MEDICAID [id number] SP [id number] Problems, Conditions, and Diagnoses Code Display Name Description Problem Type Effective Dates Data Source(s) F419 Anxiety disorder, unspecified Anxiety disorder, unspec ified Diagnosis 08/01/2020 12:22:00 PM EDT [facility] F79 Unspecified intellectual disabilities Unspecifie d intellectual disabilities Diagnosis 08/01/2020 12:22:00 PM EDT [facility] F840 Autistic disorder Autistic disorder Diagnosis 08/01/2020 12:22:00 PM EDT [facility] 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 r42 r42 Diagnosis 01/11/2020 07:35:[address] [facility] g40.89 g40.89 Diagnosis 01/11/2020 07:35:[address] [facility] g40.009 g40.009 Diagnosis 01/11/2020 07:35:[address] [facility] Z20.828 Contact with and (suspected) exposure to other viral communicable diseases CONTACT W AND EXPOSURE TO OTH VIRAL COMMUNICABLE DISEASES Di agnosis 01/06/2020 08:00:00 AM EDT [facility] M72.2 Plantar fascial fibromatosis Plantar fascial fibromato sis Problem 10/25/2020 12:00:00 AM EDT [facility] ([facility] [id number] Liver enzymes abnormal Liver enzymes abnormal Problem 05/26/2020 12:00:00 AM EDT [facility] ([facility]) J30.9 Allergic rhinitis Allergic sinusitis Problem 04/27/2020 12:00:00 AM EST eCW1 ([facility]) Surgeries/Procedures Procedure Description Date Indications Data Source(s) OFFICE OUTPATIENT VISIT 25 MINUTES 11/28/2020 12:00:00 AM EDT [facility] ([facility]) OFFICE OUTPATIENT VISIT 25 MINUTES 11/25/2020 12:00:00 AM EDT [facility] ([facility], ) Spirometry 11/10/2020 12:00:00 AM EDT TYLER ([facility], ) Plethysmography Determination Lung Volumes & Per Airway Resi st 11/10/2020 12:00:00 AM EDT [facility] ([facility]) OFFICE OUTPATIENT VISIT 10 MINUTES 10/25/2020 12:00:00 AM EDT [facility] ([facility] OFFICE OUTPATIENT VISIT 25 MINUTES 10/24/2020 12:00:00 AM EDT MED[facility] ([facility]) OFFICE OUTPATIENT VISIT 25 MINUTES 10/06/2020 12:00:00 AM EDT MED[facility] ([facility]) OFFICE OUTPATIENT VISIT 25 MINUTES 09/06/2020 12:00:00 AM EDT [facility] ([facility]) Ercp For Removal Stone(S) Biliary/Pancreatic Ducts 08/19/2020 12:00:00 AM EDT [facility] ([facility]) Ercp Removal & Exchange Stents Biliary/Pancreatic Duct 08/19/2020 12:00:00 AM EDT [facility] ([facility]) ENDOSCOPIC CATHJ BILIARY DUCTAL SYSTEM RS&I 08/19/2020 12:00:00 AM EDT [facility] ([facility]) OFFICE OUTPATIENT VISIT 25 MINUTES 08/01/2020 12:00:00 AM EDT [facility] ([facility]) OFFICE OUTPATIENT VISIT 25 MINUTES 07/22/2020 12:00:00 AM EDT MED[facility] ([facility]) OFFICE OUTPATIENT VISIT 10 MINUTES 07/19/2020 12:00:00 AM EDT [facility] ([facility] Ercp For Removal Stone(S) Biliary/Pancreatic Ducts 06/23/2020 12:00:00 AM EDT MED[facility] ([facility]) Ercp Removal & Exchange Stents Biliary/Pancreatic Duct 06/23/2020 12:00:00 AM EDT [facility] ([facility]) ENDOSCOPIC CATHJ BILIARY DUCTAL SYSTEM RS&I 06/23/2020 12:00:00 AM EDT MED[facility] ([facility]) OFFICE OUTPATIENT NEW 45 MINUTES 06/16/2020 12:00:00 A M EDT [facility] ([facility]) Bronchospasm Evaluation 06/13/2020 12:00:00 AM EDT [facility] ([facility]) Plethysmography Determination Lung Volumes & Per Airway Resi st 06/13/2020 12:00:00 AM EDT [facility] ([facility] ) DIFFUSING CAPACITY 06/13/2020 12:00:00 AM EDT MED[facility] ([facility], ) OFFICE OUTPATIENT VISIT 25 MINUTES 06/13/2020 12:00:00 AM EDT MED[facility] ([facility], ) PHYSICIAN TELEPHONE EVALUATION 5-10 MIN 05/03/2020 12: 00:00 AM EST [facility] ([facility], ) EEG VIDEO MONITORING <td>EEG VIDEO MONITORING</td ><td>Routine</td><td>01/15/2020 3:10 PM EST</td><td></td><td></td> 01/15/2020 03:10:00 PM [facility] LAMOTRIGINE <td>LAMOTRIGINE</td><td>Rout ine</td><td>01/13/2020 5:41 AM EST</td><td></td><td> </td> 01/13/2020 05:41:00 AM [facility] LAMOTRIGINE <td>LAMOTRIGINE</td><td>Rout ine</td><td>01/11/2020 12:47 PM EST</td><td></td><td> </td> 01/11/2020 12:47:00 PM [facility] QUANTITATION DRUG NOT ELSEWHERE SPECIFIED <td>LAMOTRIGINE</td><td>Routine</td><td>01/11/2020 11:48 AM EST</td><td></td><td> </td> 01/11/2020 11:48:00 AM [facility] GONADOTROPIN CHORIONIC QUANTITATIVE <td>BETA HCG, QUANT</td><td>Routine</td><td>01/11/2020 11:43 AM EST</td><td></td><td> </td> 01/11/2020 11:43:00 AM [facility] Results ID Date Data Source [id number] 12/01/2020 03:27:00 AM EDT [facility] Name Value Range Interpretation Code Description Data Mera rce(s) Supporting Document(s) SARS-CoV-2 (COVID 19) NEGATIVE - SARS-CoV-2 (COVID19) [place] This lab was ordered by [facility] a nd reported by [facility]. ID Date Data Source [id number] 11/08/2020 11:45:00 AM EDT MED[facility] ([facility], ) Name Value Range Interpretation Code Description Data Mera rce(s) Supporting Document(s) Levetiracetam [Mass/volume] in Serum or Plasma 12.6 ug/mL 10.0-40.0 [facility] ([facility], ) This test was developed and its performa nce characteristics determined by [facility]. It has not been cleared or approved by the Food and Drug Administration. Lamotrigine [Mass/volume] in Serum or Plasma 12.1 ug/mL 2.0-20.0 [facility] ([facility], ) Detection Limit = 1.0 Performed at: [facility] [id number] [address] Spray Operator: Maida Weber MD, Phone: [phone] ID Date Data Source [id number] 11/08/2020 11:45:00 AM EDT [facility] ([facility], ) Name Value Range Interpretation Code Description Data Mera rce(s) Supporting Document(s) Glucose, Fasting 69 mg/dL 70-100 [facility] ([facility], ) Blood Urea Nitrogen 13 mg/dL 7-18 [facility] ([facility], ) Creatinine For GFR 0.80 mg/dL 0.55-1.30 [facility] ([facility], ) Glomerular Filtration Rate Laboratory test result [facility] ([facility], ) <content>Units are mL/min/1.73 m2</content>
<content></content>
<content>Chronic Kidney Disease Staging per NKF:</content>
<content></content>
<content>Stage I & II GFR >=60 Normal to Mildly Decreased</content>
<content>Stage III GFR 30- 59 Moderately Decreased</content>
<content>Stage IV GFR 15-29 Severely Decreased</content>
<content>Stage V GFR <15 Very Little GFR Left</content>
<content>ESRD GFR <15 on SLOT FLOOR SUPERVISOR</content>
<content></content> Sodium Level 139 meq/L 136-145 [facility] ([facility], ) Chloride Level 106 meq/L 98-107 [facility] ([facility]) Potassium Serum 5.0 meq/L 3.5-5.1 [facility] ([facility]) Anion Gap 5 meq/L 8-16 [facility] ([facility]) Carbon Dioxide Level 28 meq/L 21-32 [facility] ([facility]) Calcium Level 9.7 mg/dL 8.5-10.1 [facility] ([facility]) Ast/Sgot 15 U/L 7-37 [facility] ([facility]) Alt/SGPT 26 U/L 12-78 [facility] ([facility]) Bilirubin,Total 0.4 mg/dL 0.2-1.0 [facility] ([facility]) Alkaline Phosphatase 206 U/L 45-117 [facility] ([facility]) Albumin 3.8 GM/DL 3.2-5.2 [facility] ([facility]) Total Protein 7.3 GM/DL 6.4-8.2 [facility] ([facility]) Albumin/Globulin Ratio 1.1 1.2-2.2 [facility] ([facility]) ID Date Data Source [id number] 11/08/2020 11:45:00 AM EDT [facility] ([facility]) Name Value Range Interpretation Code Description Data Mera rce(s) Supporting Document(s) White Blood Count 8.3 10 4.0-10.0 [facility] ([facility], ) Red Blood Count 5.09 10 4.00-5.40 [facility] ([facility]) Hemoglobin 13.7 g/dL 12.0-15.5 [facility] ([facility]) Hematocrit 43.1 % 36.0-47.0 [facility] ([facility]) Mean Corpuscular HGB Conc 31.8 g/dL 32.0-36.5 [facility] ([facility]) Mean Corpuscular Hemoglobin 26.9 pg 27.0-33.0 [facility] ([facility]) Mean Corpuscular Volume 84.7 fl 80.0-96.0 M [facility] ([facility]) Platelet Count, Automated 332 10 150-450 [facility] ([facility]) Red Cell Distribution Width 12.8 % 11.5-14.5 [facility] ([facility]) Neutrophils % 76.8 % 36.0-66.0 [facility] ([facility]) Lymph % 12.4 % 24.0-44.0 [facility] ([facility]) [place] % 7.8 % 2.0-8.0 [facility] ([facility]) Eos % 1.8 % 0.0-3.0 [facility] ([facility]) Immature Granulocyte % 0.6 % 0-3.0 [facility] Baso % 0.6 % 0.0-1.0 [facility] ([facility]) Nucleated Red Blood Cell % 0.0 % 0-0 [facility] ([facility]) Neutrophils # 6.3 10 1.5-8.5 [facility] ([facility]) [place] # 0.6 10 0.0-0.8 [facility] ([facility]) Lymph # 1.0 10 1.5-5.0 [facility] ([facility]) Eos # 0.2 10 0.0-0.5 [facility] ([facility]) Baso # 0.1 10 0.0-0.2 [facility] ([facility]) ID Date Data Source [id number] 09/19/2020 08:33:00 AM EDT [facility] ([facility]) Name Value Range Interpretation Code Description Data Mera rce(s) Supporting Document(s) Gamma glutamyl transferase [Enzymatic activity/volume] in Serum or Plasma 73 U/L 5-55 Above high normal [facility] ([facility], ) <content>note:<[email or web address]> </content>
<content></content> ID Date Data Source [id number] 09/19/2020 08:33:00 AM EDT [facility] ([facility], ) Name Value Range Interpretation Code Description Data Mera rce(s) Supporting Document(s) Ast/Sgot 15 U/L 7-37 Normal (applies to non-numeric resul ts) [facility] ([facility], ) Alt/SGPT 22 U/L 12-78 Normal (applies to non-numeric resul ts) [facility] ([facility]) Alkaline Phosphatase 183 U/L 45-117 Above high normal [facility] ([facility]) Bilirubin,Total 0.6 mg/dL 0.2-1.0 Normal (applies to non-numeric results) [facility] ([facility]) Albumin 3.5 GM/DL 3.2-5.2 Normal (applies to non-numeric resul ts) [facility] ([facility]) Bilirubin,Direct 0.2 mg/dL 0.0-0.2 Normal (applies to non-numeric results) [facility] ([facility]) Total Protein 6.8 GM/DL 6.4-8.2 Normal (applies to non-numeric re sults) [facility] ([facility]) Albumin/Globulin Ratio 1.1 1.2-2.2 Below low normal [facility] ([facility]) ID Date Data Source [id number] 09/19/2020 08:33:00 AM EDT [facility] Name Value Range Interpretation Code Description Data Mera rce(s) Supporting Document(s) White Blood Count 5.2 10 4.0-10.0 Normal (applies to non-numeri c results) [facility] ([facility]) Hemoglobin 13.1 g/dL 12.0-15.5 Normal (applies to non-numeric resul ts) [facility] ([facility]) Red Blood Count 4.88 10 4.00-5.40 Normal (applies to non-numeric results) [facility] ([facility], ) Mean Corpuscular Hemoglobin 26.8 pg 27.0-33.0 Below low normal [facility] ([facility]) Mean Corpuscular Volume 84.4 fl 80.0-96.0 Normal ( applies to non-numeric results) [facility] ([facility]) Hematocrit 41.2 % 36.0-47.0 Normal (applies to non-numeric resul ts) [facility] ([facility]) Mean Corpuscular HGB Conc 31.8 g/dL 32.0-36.5 Below low normal [facility] [place] [facility] Platelet Count, Automated 248 10 150-450 Normal (applies to non-numeric results) [facility] ([facility]) Red Cell Distribution Width 13.2 % 11.5-14.5 Norm al (applies to non-numeric results) [facility] ([facility]) Neutrophils % 73.7 % 36.0-66.0 Above high normal [facility] ([facility]) Lymph % 12.9 % 24.0-44.0 Below low normal [facility] ( [facility]) [place] % 8.7 % 2.0-8.0 Above high normal [facility] ([facility]) Eos % 3.3 % 0.0-3.0 Above high normal [facility] ([facility]) Baso % 0.8 % 0.0-1.0 Normal (applies to non-numeric resul ts) [facility] ([facility]) Immature Granulocyte % 0.6 % 0-3.0 Normal (applies to non-n umeric results) [facility] ([facility]) Lymph # 0.7 10 1.5-5.0 Below low normal [facility] ( [facility]) Neutrophils # 3.8 10 1.5-8.5 Normal (applies to non-numeric re sults) [facility] ([facility]) Nucleated Red Blood Cell % 0.0 % 0-0 Normal (applies to n on-numeric results) [facility] ([facility]) Eos # 0.2 10 0.0-0.5 Normal (applies to non-numeric resul ts) [facility]) [place] # 0.5 10 0.0-0.8 Normal (applies to non-numeric resul ts) [facility]) Baso # 0.0 10 0.0-0.2 Normal (applies to non-numeric resul ts) [facility]) ID Date Data Source [id number] 08/19/2020 05:03:00 AM EDT [facility]) Name Value Range Interpretation Code Description Data Mera rce(s) Supporting Document(s) Microscopic observation [Identifier] in Unspecified specimen by Non- gynecological cytology method Laboratory test result [facility]) SPECIMEN: Common bile duct br ushing [place] in vial received SPECIMEN ADEQUACY: Satisfactory for evaluation CATEGORIZATION: No Malignancy identified DESCRIPTIONS: Reactive ductal cells noted. COMMENTS: 08/22/2020 - 742 Signed COLEEN BRAVO(ASCP) 08/22/2020 0743 (Prelim) Signed LEAH JIMENEZ MD 08/22/2020 0911 ID Date Data Source [id number] 08/18/2020 09:05:00 AM EDT [facility]) Name Value Range Interpretation Code Description Data Mera rce(s) Supporting Document(s) Creatinine For GFR 0.77 mg/dL 0.55-1.30 Normal (applies to non -numeric results) [facility] ([facility]) Glomerular Filtration Rate Laboratory test result Normal (applies to non- numeric results) [facility]) <content>Units are mL/min/1.73 m2</content>
<content></content>
<content>Chronic Kidney Disease Staging per NKF:</content>
<content></content>
<content>Stage I & II GFR >=60 Normal to Mildly Decreased</content>
<content>Stage III GFR 30- 59 Moderately Decreased</content>
<content>Stage IV GFR 15-29 Severely Decreased</content>
<content>Stage V GFR <15 Very Little GFR Left</content>
<content>ESRD GFR <15 on SLOT FLOOR SUPERVISOR</content>
<content></content> ID Date Data Source [id number] 08/18/2020 09:05:00 AM EDT [facility]) Name Value Range Interpretation Code Description Data Mera rce(s) Supporting Document(s) Urea nitrogen [Mass/volume] in Serum or Plasma 12 mg/dL 7 -18 Normal (applies to non-numeric results) [facility]) <content>note:<nlbl:[email or web address]> </content>
<content></content> ID Date Data Source [id number] 08/18/2020 09:05:00 AM EDT [facility]) Name Value Range Interpretation Code Description Data Mera rce(s) Supporting Document(s) Inr 0.93 Normal (applies to non-numeric resul ts) [facility] ([facility]) THERAPUTIC HUMAN INR VALUES INDICATIONS NORMAL RANGES PROPHYLAXIS/TREATMENT OF: VENOUS THROMBOSIS 2.0-3.0 PULMONARY EMBOLISM 2.0-3.0 PREVENTION OF SYSTEMIC EMBOLISM FROM: TISSUE HEART VALVES 2.0-3.0 ACUTE MYOCARDIAL INFARCTION 2.0-3.0 VALVULAR HEART DISEASE 2.0-3.0 ATRIAL FIBRILLATION 2.0-3.0 MECHANICAL VALVES(HIGH RISK) 2.5-3.5 RECURRENT MYOCARDIAL INFARCTION 2.5-3.5 Prothrombin Time 12.7 s 12.5-14.3 Normal (applies to non-numeric results) [facility]) Partial Thromboplastin Time 37.4 s 24.2-38.5 Norm al (applies to non-numeric results) [facility]) ID Date Data Source [id number] 08/18/2020 09:05:00 AM EDT [facility]) Name Value Range Interpretation Code Description Data Mera rce(s) Supporting Document(s) Red Blood Count 5.23 10 4.00-5.40 Normal (applies to non-numeric results) [facility]) White Blood Count 7.1 10 4.0-10.0 Normal (applies to non-numeri c results) [facility]) Mean Corpuscular Volume 84.3 fl 80.0-96.0 Normal ( applies to non-numeric results) [facility] ([facility]) Hematocrit 44.1 % 36.0-47.0 Normal (applies to non-numeric resul ts) [facility]) Hemoglobin 14.1 g/dL 12.0-15.5 Normal (applies to non-numeric resul ts) [facility]) Mean Corpuscular Hemoglobin 27.0 pg 27.0-33.0 Norm al (applies to non-numeric results) [facility]) Mean Corpuscular HGB Conc 32.0 g/dL 32.0-36.5 Normal (applies to non-numeric results) [facility]) Red Cell Distribution Width 12.6 % 11.5-14.5 Norm al (applies to non-numeric results) [facility] ([facility]) Platelet Count, Automated 280 10 150-450 Normal (applies to non-numeric results) [facility]) Neutrophils % 77.7 % 36.0-66.0 Above high normal [facility] ([facility]) Lymph % 10.6 % 24.0-44.0 Below low normal [facility] ( [facility]) [place] % 7.7 % 2.0-8.0 Normal (applies to non-numeric resul ts) [facility]) Eos % 2.7 % 0.0-3.0 Normal (applies to non-numeric resul ts) [facility]) Nucleated Red Blood Cell % 0.0 % 0-0 Normal (applies to n on-numeric results) [facility]) Baso % 0.7 % 0.0-1.0 Normal (applies to non-numeric resul ts) [facility]) Immature Granulocyte % 0.6 % 0-3.0 Normal (applies to non-n umeric results) [facility] ([facility]) Lymph # 0.8 10 1.5-5.0 Below low normal [facility] ( [facility]) Neutrophils # 5.6 10 1.5-8.5 Normal (applies to non-numeric re sults) [facility] ([facility]) [place] # 0.6 10 0.0-0.8 Normal (applies to non-numeric resul ts) [facility] ([facility]) Baso # 0.1 10 0.0-0.2 Normal (applies to non-numeric resul ts) [facility] ([facility]) Eos # 0.2 10 0.0-0.5 Normal (applies to non-numeric resul ts) [facility] ([facility]) ID Date Data Source [id number] 08/18/2020 09:05:00 AM EDT [facility] ([facility]) Name Value Range Interpretation Code Description Data Mera rce(s) Supporting Document(s) Ast/Sgot 12 U/L 7-37 Normal (applies to non-numeric resul ts) [facility] ([facility]) Alt/SGPT 21 U/L 12-78 Normal (applies to non-numeric resul ts) [facility] ([facility]) Alkaline Phosphatase 234 U/L 45-117 Above high normal [facility] ([facility]) Bilirubin,Total 0.7 mg/dL 0.2-1.0 Normal (applies to non-numeric results) [facility] ([facility]) Total Protein 7.5 GM/DL 6.4-8.2 Normal (applies to non-numeric re sults) [facility] ([facility]) Bilirubin,Direct 0.2 mg/dL 0.0-0.2 Normal (applies to non-numeric results) [facility] ([facility]) Albumin 3.8 GM/DL 3.2-5.2 Normal (applies to non-numeric resul ts) [facility] ([facility]) Albumin/Globulin Ratio 1.0 1.2-2.2 Below low normal [facility] ([facility]) ID Date Data Source [id number] 08/18/2020 09:02:00 AM EDT [facility] ([facility], ) Name Value Range Interpretation Code Description Data Mera rce(s) Supporting Document(s) Levetiracetam [Mass/volume] in Serum or Plasma 20.9 ug/mL 10.0-40.0 [facility] ([facility], ) This test was developed and its performa nce characteristics determined by [facility]. It has not been cleared or approved by the Food and Drug Administration. Lamotrigine [Mass/volume] in Serum or Plasma 13.1 ug/mL 2.0-20.0 [facility] ([facility]) Detection Limit = 1.0 Performed at: [address] [id number] Metal Spray Operator: Maida Weber MD, Phone: [phone] ID Date Data Source [id number] 08/18/2020 09:02:00 AM EDT [facility] ([facility], ) Name Value Range Interpretation Code Description Data Mera rce(s) Supporting Document(s) Blood Urea Nitrogen 11 mg/dL 7-18 [facility] ([facility], ) Glucose, Fasting 72 mg/dL 70-100 [facility] ([facility]) Glomerular Filtration Rate Laboratory test result [facility] ([facility]) <content>Units are mL/min/1.73 m2</content>
<content></content>
<content>Chronic Kidney Disease Staging per NKF:</content>
<content></content>
<content>Stage I & II GFR >=60 Normal to Mildly Decreased</content>
<content>Stage III GFR 30- 59 Moderately Decreased</content>
<content>Stage IV GFR 15-29 Severely Decreased</content>
<content>Stage V GFR <15 Very Little GFR Left</content>
<content>ESRD GFR <15 on SLOT FLOOR SUPERVISOR</content>
<content></content> Creatinine For GFR 0.78 mg/dL 0.55-1.30 [facility] ([facility], ) Potassium Serum 4.8 meq/L 3.5-5.1 [facility] ([facility]) Sodium Level 141 meq/L 136-145 [facility] ([facility]) Chloride Level 106 meq/L 98-107 [facility] ([facility]) Anion Gap 4 meq/L 8-16 [facility] ([facility]) Carbon Dioxide Level 31 meq/L 21-32 [facility] ([facility]) Calcium Level 9.7 mg/dL 8.5-10.1 [facility] ([facility]) Ast/Sgot 11 U/L 7-37 [facility] ([facility]) Alt/SGPT 22 U/L 12-78 [facility] ([facility]) Alkaline Phosphatase 236 U/L 45-117 [facility] ([facility]) Total Protein 7.4 GM/DL 6.4-8.2 [facility] ([facility]) Bilirubin,Total 0.7 mg/dL 0.2-1.0 [facility] ([facility]) Albumin 3.7 GM/DL 3.2-5.2 [facility] ([facility]) Albumin/Globulin Ratio 1.0 1.2-2.2 [facility] ([facility]) ID Date Data Source [id number] 08/18/2020 09:02:00 AM EDT [facility] ([facility]) Name Value Range Interpretation Code Description Data Mera rce(s) Supporting Document(s) White Blood Count 7.1 10 4.0-10.0 [facility] ([facility], ) Hemoglobin 13.6 g/dL 12.0-15.5 [facility] ([facility]) Red Blood Count 5.12 10 4.00-5.40 [facility] ([facility]) Mean Corpuscular Volume 83.8 fl 80.0-96.0 M [facility] ([facility]) Hematocrit 42.9 % 36.0-47.0 [facility] ([facility]) Mean Corpuscular HGB Conc 31.7 g/dL 32.0-36.5 [facility] ([facility]) Red Cell Distribution Width 12.6 % 11.5-14.5 [facility] ([facility]) Mean Corpuscular Hemoglobin 26.6 pg 27.0-33.0 [facility] ([facility]) Platelet Count, Automated 289 10 150-450 [facility] ([facility]) Neutrophils % 79.0 % 36.0-66.0 [facility] ([facility]) [place] % 6.8 % 2.0-8.0 [facility] ([facility]) Lymph % 10.1 % 24.0-44.0 [facility] ([facility]) Eos % 2.5 % 0.0-3.0 [facility] ([facility]) Baso % 0.8 % 0.0-1.0 [facility] ([facility]) Immature Granulocyte % 0.8 % 0-3.0 [facility] ([facility]) Nucleated Red Blood Cell % 0.0 % 0-0 [facility] ([facility]) [place] # 0.5 10 0.0-0.8 [facility] ([facility]) Lymph # 0.7 10 1.5-5.0 [facility] ([facility]) Neutrophils # 5.6 10 1.5-8.5 [facility] ([facility]) Baso # 0.1 10 0.0-0.2 [facility] ([facility]) Eos # 0.2 10 0.0-0.5 [facility] ([facility]) ID Date Data Source [id number] 08/14/2020 10:45:00 AM EDT [facility] Name Value Range Interpretation Code Description Data Mera rce(s) Supporting Document(s) SARS-CoV-2 (COVID-19) RNA [Presence] in Respiratory specimen by GITA with probe detection Not [facility]ed [facility] This lab was ordered by [facility] and reported by [facility]. ID Date Data Source [id number] 06/29/2020 08:47:00 AM EDT [facility] ([facility]) Name Value Range Interpretation Code Description Data Mera rce(s) Supporting Document(s) Levetiracetam [Mass/volume] in Serum or Plasma 16.2 ug/mL 10.0-40.0 [facility] ([facility]) This test was developed and its performa nce characteristics determined by [facility]. It has not been cleared or approved by the Food and Drug Administration. Lamotrigine [Mass/volume] in Serum or Plasma 10.1 ug/mL 2.0-20.0 [facility] ([facility], ) Testing on this sample was performed by homogeneous enzyme immunoassay. Detection Limit = 1.0 Performed at: [facility] [id number] 61 Metal Spray Operator: Maida Weber MD, Phone: [phone] Performed at: [facility] [address] [place] [id number] Metal Spray Operator: Nilam Mendoza [facility], Phone: [phone] ID Date Data Source [id number] 06/29/2020 08:47:00 AM EDT [facility] ([facility]) Name Value Range Interpretation Code Description Data Mera rce(s) Supporting Document(s) Glucose, Fasting 92 mg/dL 70-100 [facility] ([facility], ) Blood Urea Nitrogen 14 mg/dL 7-18 [facility] ([facility]) Creatinine For GFR 0.74 mg/dL 0.55-1.30 [facility] ([facility]) Glomerular Filtration Rate Laboratory test result [facility] ([facility]) <content>Units are mL/min/1.73 m2</content>
<content></content>
<content>Chronic Kidney Disease Staging per NKF:</content>
<content></content>
<content>Stage I & II GFR >=60 Normal to Mildly Decreased</content>
<content>Stage III GFR 30- 59 Moderately Decreased</content>
<content>Stage IV GFR 15-29 Severely Decreased</content>
<content>Stage V GFR <15 Very Little GFR Left</content>
<content>ESRD GFR <15 on SLOT FLOOR SUPERVISOR</content>
<content></content> Potassium Serum 4.1 meq/L 3.5-5.1 [facility] ([facility], ) Sodium Level 141 meq/L 136-145 [facility] ([facility]) Carbon Dioxide Level 28 meq/L 21-32 [facility] ([facility]) Chloride Level 107 meq/L 98-107 [facility] ([facility]) Calcium Level 9.3 mg/dL 8.5-10.1 [facility] ([facility]) Ast/Sgot 11 U/L 7-37 [facility] ([facility]) Anion Gap 6 meq/L 8-16 [facility] ([facility]) Alkaline Phosphatase 286 U/L 45-117 [facility] ([facility]) Alt/SGPT 19 U/L 12-78 [facility] ([facility]) Total Protein 7.4 GM/DL 6.4-8.2 [facility] ([facility]) Bilirubin,Total 0.4 mg/dL 0.2-1.0 [facility] ([facility]) Albumin 3.5 GM/DL 3.2-5.2 [facility] ([facility]) Albumin/Globulin Ratio 0.9 1.2-2.2 [facility] ([facility]) ID Date Data Source [id number] 06/29/2020 08:47:00 AM EDT [facility] ([facility]) Name Value Range Interpretation Code Description Data Mera rce(s) Supporting Document(s) Red Blood Count 4.84 10 4.00-5.40 [facility] ([facility]) Hemoglobin 13.6 g/dL 12.0-15.5 [facility] ([facility]) White Blood Count 7.3 10 4.0-10.0 [facility] ([facility]) Hematocrit 42.2 % 36.0-47.0 [facility] ([facility]) Mean Corpuscular Volume 87.2 fl 80.0-96.0 [facility] ([facility]) Mean Corpuscular Hemoglobin 28.1 pg 27.0-33.0 [facility] ([facility]) Mean Corpuscular HGB Conc 32.2 g/dL 32.0-36.5 [facility] ([facility]) Platelet Count, Automated 278 10 150-450 [facility] ([facility]) Red Cell Distribution Width 12.0 % 11.5-14.5 [facility] ([facility] ) Lymph % 9.3 % 24.0-44.0 [facility] Neutrophils % 78.1 % 36.0-66.0 [facility] ([facility], ) [place] % 7.8 % 2.0-8.0 [facility] Eos % 3.3 % 0.0-3.0 [facility] ([facility], ) Baso % 0.7 % 0.0-1.0 [facility] Immature Granulocyte % 0.8 % 0-3.0 [facility] Nucleated Red Blood Cell % 0.0 % 0-0 [facility] ([facility]) Lymph # 0.7 10 1.5-5.0 [facility] ([facility]) Neutrophils # 5.7 10 1.5-8.5 [facility] ([facility], ) [place] # 0.6 10 0.0-0.8 [facility] ([facility], ) Eos # 0.2 10 0.0-0.5 [facility] ([facility]) Baso # 0.1 10 0.0-0.2 [facility] ([facility]) ID Date Data Source [id number] 06/18/2020 09:35:00 AM EDT [facility] Name Value Range Interpretation Code Description Data Mera rce(s) Supporting Document(s) SARS-CoV-2 (COVID-19) RNA [Presence] in Respiratory specimen by GITA with probe detection Not Detected [facility] This lab was ordered by [facility] and reported by [facility]. ID Date Data Source [id number] 05/31/2020 08:29:00 AM EDT [facility] ([facility], ) Name Value Range Interpretation Code Description Data Mera rce(s) Supporting Document(s) Lamotrigine [Mass/volume] in Serum or Plasma 10.1 ug/mL 2.0-20.0 [facility] Testing on this sample was performed by homogeneous enzyme immunoassay. Detection Limit = 1.0 Performed at: [address] [id number] 61 Metal Spray Operator: Maida Weber MD, Phone: [phone] Performed at: [facility] [address] [place] [id number] Metal Spray Operator: Nilam Mendoza [facility], Phone: [phone] Levetiracetam [Mass/volume] in Serum or Plasma 32.1 ug/mL 10.0-40.0 [facility] ([facility], ) This test was developed and its performa nce characteristics determined by [facility]. It has not been cleared or approved by the Food and Drug Administration. ID Date Data Source [id number] 05/31/2020 08:29:00 AM EDT [facility] ([facility]) Name Value Range Interpretation Code Description Data Mera rce(s) Supporting Document(s) Glucose, Fasting 100 mg/dL 70-100 [facility] ([facility]) Blood Urea Nitrogen 10 mg/dL 7-18 [facility] ([facility], ) Creatinine For GFR 0.69 mg/dL 0.55-1.30 [facility] ([facility]) Glomerular Filtration Rate Laboratory test result [facility] ([facility]) <content>Units are mL/min/1.73 m2</content>
<content></content>
<content>Chronic Kidney Disease Staging per NKF:</content>
<content></content>
<content>Stage I & II GFR >=60 Normal to Mildly Decreased</content>
<content>Stage III GFR 30- 59 Moderately Decreased</content>
<content>Stage IV GFR 15-29 Severely Decreased</content>
<content>Stage V GFR <15 Very Little GFR Left</content>
<content>ESRD GFR <15 on SLOT FLOOR SUPERVISOR</content>
<content></content> Sodium Level 141 meq/L 136-145 [facility] ([facility], ) Potassium Serum 3.9 meq/L 3.5-5.1 [facility] ([facility]) Carbon Dioxide Level 31 meq/L 21-32 [facility] ([facility]) Chloride Level 107 meq/L 98-107 [facility] ([facility], ) Anion Gap 3 meq/L 8-16 [facility] ([facility]) Calcium Level 9.0 mg/dL 8.5-10.1 [facility] ([facility]) Ast/Sgot 54 U/L 7-37 [facility] ([facility]) Alt/SGPT 93 U/L 12-78 [facility] ([facility]) Alkaline Phosphatase 343 U/L 45-117 [facility] ([facility]) Total Protein 6.6 GM/DL 6.4-8.2 [facility] ([facility]) Bilirubin,Total 0.4 mg/dL 0.2-1.0 [facility] ([facility]) Albumin 3.1 GM/DL 3.2-5.2 [facility] ([facility]) Albumin/Globulin Ratio 0.9 1.2-2.2 [facility] ([facility]) ID Date Data Source [id number] 05/31/2020 08:29:00 AM EDT [facility] ([facility]) Name Value Range Interpretation Code Description Data Mera rce(s) Supporting Document(s) Red Blood Count 4.70 10 4.00-5.40 [facility] ([facility]) White Blood Count 6.2 10 4.0-10.0 [facility] ([facility]) Hemoglobin 13.2 g/dL 12.0-15.5 [facility] ([facility], ) Hematocrit 40.9 % 36.0-47.0 [facility] ([facility], ) Mean Corpuscular Volume 87.0 fl 80.0-96.0 M [facility] ([facility], ) Mean Corpuscular HGB Conc 32.3 g/dL 32.0-36.5 [facility] ([facility]) Mean Corpuscular Hemoglobin 28.1 pg 27.0-33.0 [facility] ([facility]) Red Cell Distribution Width 12.6 % 11.5-14.5 [facility] ([facility]) Platelet Count, Automated 241 10 150-450 [facility] ([facility]) Lymph % 12.1 % 24.0-44.0 [facility] ([facility], ) Neutrophils % 73.1 % 36.0-66.0 [facility] ([facility], ) [place] % 9.2 % 2.0-8.0 [facility] ([facility]) Eos % 3.4 % 0.0-3.0 [facility] ([facility]) Baso % 0.6 % 0.0-1.0 [facility] ([facility]) Nucleated Red Blood Cell % 0.0 % 0-0 [facility] Immature Granulocyte % 1.6 % 0-3.0 [facility] ([facility]) Lymph # 0.8 10 1.5-5.0 [facility] ([facility]) Neutrophils # 4.6 10 1.5-8.5 [facility] ([facility]) [place] # 0.6 10 0.0-0.8 [facility] ([facility]) Eos # 0.2 10 0.0-0.5 [facility] ([facility]) Baso # 0.0 10 0.0-0.2 [facility] ([facility]) ID Date Data Source [id number] 05/03/2020 07:31:00 AM EST [facility] ([facility]) Name Value Range Interpretation Code Description Data Mera rce(s) Supporting Document(s) Levetiracetam [Mass/volume] in Serum or Plasma 7.9 ug/mL 10.0-40.0 [facility] ([facility], ) This test was developed and its performa nce characteristics determined by [facility]. It has not been cleared or approved by the Food and Drug Administration. Lamotrigine [Mass/volume] in Serum or Plasma 7.2 ug/mL 2.0-20.0 [facility] ([facility], ) Testing on this sample was performed by homogeneous enzyme immunoassay. Detection Limit = 1.0 Performed at: [address] [id number] 61 Metal Spray Operator: Maida Weber MD, Phone: [phone] Performed at: [email or web address] [address] [id number] Metal Spray Operator: Nilam Mendoza [facility], Phone: [phone] ID Date Data Source [id number] 05/03/2020 07:31:00 AM EST [facility] ([facility]) Name Value Range Interpretation Code Description Data Mera rce(s) Supporting Document(s) Glucose, Fasting 74 mg/dL 70-100 [facility] ([facility], ) Blood Urea Nitrogen 13 mg/dL 7-18 [facility] ([facility], ) Creatinine For GFR 0.81 mg/dL 0.55-1.30 [facility] ([facility]) Sodium Level 142 meq/L 136-145 [facility] ([facility]) Glomerular Filtration Rate Laboratory test result [facility] ([facility]) <content>Units are mL/min/1.73 m2</content>
<content></content>
<content>Chronic Kidney Disease Staging per NKF:</content>
<content></content>
<content>Stage I & II GFR >=60 Normal to Mildly Decreased</content>
<content>Stage III GFR 30- 59 Moderately Decreased</content>
<content>Stage IV GFR 15-29 Severely Decreased</content>
<content>Stage V GFR <15 Very Little GFR Left</content>
<content>ESRD GFR <15 on SLOT FLOOR SUPERVISOR</content>
<content></content> Potassium Serum 4.1 meq/L 3.5-5.1 [facility] ([facility]) Chloride Level 105 meq/L 98-107 MED[facility] ([facility]) Anion Gap 8 meq/L 8-16 MED[facility] ([facility]) Calcium Level 9.2 mg/dL 8.5-10.1 [facility] ([facility]) Carbon Dioxide Level 29 meq/L 21-32 [facility] ([facility]) Alt/SGPT 38 U/L 12-78 [facility] ([facility]) Ast/Sgot 22 U/L 7-37 [facility] ([facility]) Alkaline Phosphatase 263 U/L 45-117 MED[facility] ([facility]) Bilirubin,Total 0.5 mg/dL 0.2-1.0 [facility] ([facility]) Total Protein 6.8 GM/DL 6.4-8.2 [facility] ([facility]) Albumin 3.6 GM/DL 3.2-5.2 [facility] ([facility]) Albumin/Globulin Ratio 1.1 1.2-2.2 [facility] ([facility]) ID Date Data Source [id number] 05/03/2020 07:31:00 AM EST MED[facility] ([facility]) Name Value Range Interpretation Code Description Data Mera rce(s) Supporting Document(s) White Blood Count 5.0 10 4.0-10.0 [facility] ([facility]) Hemoglobin 13.7 g/dL 12.0-15.5 [facility] ([facility]) Red Blood Count 4.92 10 4.00-5.40 [facility] ([facility]) Hematocrit 42.8 % 36.0-47.0 [facility] ([facility]) Mean Corpuscular Volume 87.0 fl 80.0-96.0 M EDENT ([facility]) Mean Corpuscular Hemoglobin 27.8 pg 27.0-33.0 [facility] ([facility]) Red Cell Distribution Width 13.1 % 11.5-14.5 [facility] ([facility]) Mean Corpuscular HGB Conc 32.0 g/dL 32.0-36.5 [facility] ([facility]) Neutrophils % 65.6 % 36.0-66.0 [facility] ([facility]) Platelet Count, Automated 248 10 150-450 MED[facility] ([facility]) [place] % 11.9 % 2.0-8.0 [facility] Lymph % 16.3 % 24.0-44.0 MED[facility] ([facility]) Eos % 4.8 % 0.0-3.0 [facility] ([facility]) Baso % 1.2 % 0.0-1.0 MED[facility] ([facility]) Nucleated Red Blood Cell % 0.0 % 0-0 MED ENT ([facility]) Immature Granulocyte % 0.2 % 0-3.0 [facility] ([facility]) Lymph # 0.8 10 1.5-5.0 MED[facility] ([facility], ) Neutrophils # 3.3 10 1.5-8.5 [facility] ([facility], ) [place] # 0.6 10 0.0-0.8 [facility] ([facility], ) Eos # 0.2 10 0.0-0.5 [facility] ([facility], ) Baso # 0.1 10 0.0-0.2 [facility] ([facility], ) ID Date Data Source [id number] 04/12/2020 11:09:00 AM EST [facility] ([facility]) Name Value Range Interpretation Code Description Data Mera rce(s) Supporting Document(s) Lamotrigine [Mass/volume] in Serum or Plasma 6.7 ug/mL 2.0-20.0 MED[facility] ([facility], ) Testing on this sample was performed by homogeneous enzyme immunoassay. Detection Limit = 1.0 Performed at: [employer] [place] [id number] Metal Spray Operator: Nilam Mendoza [facility], Phone: [phone] ID Date Data Source [id number] 04/12/2020 11:09:00 AM EST MED[facility] ([facility]) Name Value Range Interpretation Code Description Data Mera rce(s) Supporting Document(s) Glucose, Fasting 86 mg/dL 70-100 MED[facility] ([facility], ) Creatinine For GFR 0.86 mg/dL 0.55-1.30 [facility] ([facility], ) Blood Urea Nitrogen 12 mg/dL 7-18 MED[facility] ([facility], ) Glomerular Filtration Rate Laboratory test result [facility] ([facility]) <content>Units are mL/min/1.73 m2</content>
<content></content>
<content>Chronic Kidney Disease Staging per NKF:</content>
<content></content>
<content>Stage I & II GFR >=60 Normal to Mildly Decreased</content>
<content>Stage III GFR 30- 59 Moderately Decreased</content>
<content>Stage IV GFR 15-29 Severely Decreased</content>
<content>Stage V GFR <15 Very Little GFR Left</content>
<content>ESRD GFR <15 on SLOT FLOOR SUPERVISOR</content>
<content></content> Sodium Level 141 meq/L 136-145 MED[facility] ([facility]) Potassium Serum 4.3 meq/L 3.5-5.1 [facility] ([facility]) Chloride Level 105 meq/L 98-107 [facility] ([facility]) Carbon Dioxide Level 28 meq/L 21-32 [facility] ([facility]) Anion Gap 8 meq/L 8-16 [facility] ([facility]) Calcium Level 10.0 mg/dL 8.5-10.1 [facility] ([facility]) Ast/Sgot 27 U/L 7-37 [facility] ([facility]) Alt/SGPT 42 U/L 12-78 [facility] ([facility]) Bilirubin,Total 0.8 mg/dL 0.2-1.0 [facility] ([facility]) Alkaline Phosphatase 487 U/L 45-117 [facility] ([facility]) Total Protein 6.9 GM/DL 6.4-8.2 [facility] ([facility]) Albumin/Globulin Ratio 1.0 1.2-2.2 [facility] ([facility]) Albumin 3.5 GM/DL 3.2-5.2 [facility] ([facility]) ID Date Data Source HEPATITIS B SURFACE ANTIGEN 2020 12:00:00 AM EST eCW1 ([facility]) Name Value Range Interpretation Code Description Data Mera rce(s) Supporting Document(s) NEGATIVE NEGATIVE HEPATITIS B SURFACE ANTIG EN eCW1 ([facility]) ID Date Data Source HEPATITIS C ANTIBODY INDEX 2020 12:00:00 AM EST eCW1 ( [facility]) Name Value Range Interpretation Code Description Data Mera rce(s) Supporting Document(s) < 0.0 <0.8 HEPATITIS C VIRUS JOSE JUAN IND EX eCW1 ([facility]) ID Date Data Source HEPATITIS B SURFACE ANTIBODY 2020 12:00:00 AM EST eCW1 ([facility]) Name Value Range Interpretation Code Description Data Mera rce(s) Supporting Document(s) NEGATIVE POSITIVE HEPATITIS B SURFACE ANTIB SAUL eCW1 ([facility]) ID Date Data Source HEPATITIS A ANTIBODY IGM 2020 12:00:00 AM EST eCW1 ([facility]) Name Value Range Interpretation Code Description Data Mera rce(s) Supporting Document(s) NEGATIVE NEGATIVE HEPATITIS A ANTIBODY IGM eCW1 ([facility]) ID Date Data Source GAMMA GLUTAMYLTRANSPEPTIDASE 2020 12:00:00 AM EST eCW1 ([facility]) Name Value Range Interpretation Code Description Data Mera rce(s) Supporting Document(s) 320 5-55 GAMMA GLUTAMYLTRANSPEPTIDASE e CW1 ([facility]) ID Date Data Source [id number] 03/23/2020 09:39:00 AM EST MED[facility] ([facility] ) Name Value Range Interpretation Code Description Data Mera rce(s) Supporting Document(s) Valproate [Mass/volume] in Serum or Plasma 59.4 UG/ML 50.0-100.0 MED[facility] ([facility], ) <content>note:<nlbl:demographic_changed> </content>
<content></content> Lamotrigine [Mass/volume] in Serum or Plasma 14.5 ug/mL 2.0-20.0 MED[facility] ([facility], ) Testing on this sample was performed by homogeneous enzyme immunoassay. Detection Limit = 1.0 Performed at: [employer] [address] [place] [id number] Metal Spray Operator: Nilam Mendoza [facility], Phone: [phone] ID Date Data Source [id number] 03/14/2020 10:17:00 AM EST [facility] Name Value Range Interpretation Code Description Data Mera rce(s) Supporting Document(s) Respiratory specimen severe acute respir atory syndrome coronavirus 2 (SARS-CoV-2) RNA [facility] This lab was ordered by Stephanie porras and reported by . ID Date Data Source [id number] 03/14/2020 10:14:00 [facility] Name Value Range Interpretation Code Description Data Mera rce(s) Supporting Document(s) Respiratory specimen severe acute respir atory syndrome coronavirus 2 (SARS-CoV-2) RNA [facility] lab [facility] and reported by . ID Date Data Source [id number] 03/14/2020 10:14:00 AM [facility] Name Value Range Interpretation Code Description Data Mera rce(s) Supporting Document(s) Respiratory specimen severe acute respir atory syndrome coronavirus 2 (SARS-CoV-2) RNA [facility] This lab was ordered by [facility] vern and reported by . ID Date Data Source [id number] 03/10/2020 08:32:00 AM [facility] Name Value Range Interpretation Code Description Data Mera rce(s) Supporting Document(s) SARS-CoV-2 RNA INHOUSE Negative Normal (applies to non-n umeric results) [facility] THIS IS A [facility] REPORTABLE COMMUNICABLE DISEASE. Testing was performed using the [employer] COVID-19 MDx Assay. This test has been [...] be found at the following links: Providers: https://www.fda.gov/media/490694/download Patients : https://www.fda.gov/media/570343/download THIS IS A [facility] REPORTABLE COMMUNICABLE DISEASE Negative results do not preclude SARS-CoV-2 infection and should not be used as the sole basis for patient management decisions. Negative results must be combined with clinical observations,patient history, and epidemiological information. ID Date Data Source [id number] 03/03/2020 06:48:00 PM [facility] Name Value Range Interpretation Code Description Data Mera rce(s) Supporting Document(s) SARS-CoV-2 RNA INHOUSE Negative Normal (applies to non-n umeric results) [facility] THIS IS A [facility] REPORTABLE COMMUNICABLE DISEASE. Testing was performed using the [employer] COVID-19 MDx Assay. This test has been [...] be found at the following links: Providers: https://www.[place].gov/media/654849/download Patients : https://www.fda.gov/media/750934/download THIS IS A [facility] REPORTABLE COMMUNICABLE DISEASE Negative results do not preclude SARS-CoV-2 infection and should not be used as the sole basis for patient management decisions. Negative results must be combined with clinical observations,patient history, and epidemiological information. ID Date Data Source [id number] 02/23/2020 07:15:00 AM [facility] Name Value Range Interpretation Code Description Data Mera rce(s) Supporting Document(s) SARS-CoV-2 GITA result Not Detected Normal (applies to non- numeric results) [facility] This nucleic acid amplification test was developed and its performance characteristics determined by [employer]. Nucleic acid amplification tests include PCR and [...] detected) result in this assay. Performed at: [facility] [address] [place], [place] [id number] Metal Spray Operator: Nelsy Ordoñez PhD, Phone: [phone] Testing was performed using the Aptima SARS-CoV-2 assay. This nucleic acid amplification test was developed and its performance characteristics determined by [employer]. Nucleic acid amplification tests include PCR and [...] detected) result in this assay. Performed at: [address] [id number] Metal Spray Operator: Ana Taylor MD, Phone: [phone] ID Date Data Source [id number] 02/11/2020 11:29:00 AM EST [facility] Name Value Range Interpretation Code Description Data Mera rce(s) Supporting Document(s) SARS coronavirus 2 RNA [facility] This lab was ordered by Cathi woods and reported by [facility]. ID Date Data Source [id number] 02/14/2020 02:39:00 PM [facility] Name Value Range Interpretation Code Description Data Mera rce(s) Supporting Document(s) COVID-19 Result Not Detected Normal (applies to non-numeri c results) [facility] This nucleic acid amplification test was developed and its performance characteristics determined by [employer]. Nucleic acid amplification tests include PCR and [...] detected) result in this assay. Performed at: [facility] [address] [place], [place] [id number] Metal Spray Operator: Nelsy Ordoñez PhD, Phone: [phone] Testing was performed using the Aptima SARS-CoV-2 assay. This nucleic acid amplification test was developed and its performance characteristics determined by [employer]. Nucleic acid amplification tests include PCR and [...] detected) result in this assay. Performed at: [address] [id number] Metal Spray Operator: Ana Taylor MD, Phone: [phone] ID Date Data Source [id number] 01/16/2020 12:26:11 PM [facility] Name Value Range Interpretation Code Description Data Mera e(s) Supporting Document(s) Discharge Summary [facility] UXOOFd5lLaXNWzCy76/SUOodRKUnw0LvSWgsXGz3IVnaOCHiC6PrVTU7aN4bAJN0XHlXBhZbKsZtPQG8 m [file] JfSYF5AlF2MTIxYpNsZHpoB4B2OD4yCJFBQn2+SWtdmWMrwKjjXDCKVeNuNgT2PPwfVICEKq9D ID Date Data Source [id number] 01/15/2020 03:36:41 PM [facility] Name Value Range Interpretation Code Description Data Mera rce(s) Supporting Document(s) History and Physical [facility] MTCDJg8yDuMSUcMr93/APNcgUNQes6JyLPazTAm6HZtrUAEmN1ToZYZ1gK1cBQF2TXyRSvVgBlWtHLC2 lbm [file] Ev5+M/bgFDy4p9zeBwHV45lxQ23ZfgdwpCOzlvg16pJd8gGlwDNS8zb/qj+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 [file] ICAgICAgICAgICAgICAgICAgICAgICAgICAgICAgICAgICAgICAgICAgICAgICAgICAgICAgICAgICAg ICAgICAgICAgICAgICAgICAgICAgICAgICAgICAgDQogICAgICAgICAgICAgICAgICAgICAgICAgICAg ICAgICAgICAgICAgICAgICAgICAgICAgICAgICAgIC AgICAgICAgICAgICAgICAgICAgICAgICAgICAgICAgICAgICAgICAgDQogICAgICAgICAgICAgICAgIC AgICAgICAgICAgICAgICAgICAgICAgICAgICAgICAgICAgICAgICAgICAgICAgICAgICAgICAgICAgIC AgICAgICAgICAgICAgICAgICAgICAgDQogICAgICAg ICAgICAgICAgICAgICAgICAgICAgICAgICAgICAgICAgICAgICAgICAgICAgICAgICAgICAgICAgICAg ICAgICAgICAgICAgICAgICAgICAgICAgICAgICAgICAgDQogICAgICAgICAgICAgICAgICAgICAgICAg ICAgICAgICAgICAgICAgICAgICAgICAgICAgICAgIC AgICAgICAgICAgICAgICAgICAgICAgICAgICAgICAgICAgICAgICAgICAgDQogICAgICAgICAgICAgIC AgICAgICAgICAgICAgICAgICAgICAgICAgICAgICAgICAgICAgICAgICAgICAgICAgICAgICAgICAgIC AgICAgICAgICAgICAgICAgICAgICAgICAgDQogICAg ICAgICAgICAgICAgICAgICAgICAgICAgICAgICAgICAgICAgICAgICAgICAgICAgICAgICAgICAgICAg ICAgICAgICAgICAgICAgICAgICAgICAgICAgICAgICAgICAgDQogICAgICAgICAgICAgICAgICAgICAg ICAgICAgICAgICAgICAgICAgICAgICAgICAgICAgIC AgICAgICAgICAgICAgICAgICAgICAgICAgICAgICAgICAgICAgICAgICAgICAgDQogICAgICAgICAgIC AgICAgICAgICAgICAgICAgICAgICAgICAgICAgICAgICAgICAgICAgICAgICAgICAgICAgICAgICAgIC AgICAgICAgICAgICAgICAgICAgICAgICAgICAgDQog ICAgICAgICAgICAgICAgICAgICAgICAgICAgICAgICAgICAgICAgICAgICAgICAgICAgICAgICAgICAg VLLsTWYoKUWnBLMmDWVnAPVeAJEcRDWmVVDuXGNtKPTdABShQJYwKJv0N4tlQFTbWPOiCG4oZKt4Ny3+ RSkMWrHeNNJ9ldFqoV9SPA5mw6MwGBmjIGVvp7DlGL n5PT4LGSRwULgoFW2KIDxclk5UKVVqXDJruFXDr1jtLsRbAMI2QEUeMzghTR6GMJGhN9zcurNrLHVlIC YTSZboYBMWXZxbCZWVMQCnKSZrHnPnLoQsETYrRHLoXLFMVMU7VWWjNwSoQMcnAE3Ky6OdwOV2HTp+Pg 3HTK4uo5RlSNovJBYhPB9glg0IBTqCTaDyQ6KeqgW8 YFJ5NAIdRw4KRXSyZCVduBVrWXIoTDBDYqZmV2YboE42ECBLCa3+JJqvinBaBchSGjS1AAAxp1OwCVh8 JG9GEDBcVZd1rNOtNRYAMBS0LSSgbKDoILJNDQEtxYlxYTPvEKXnTXWtXq9vHOVlKBJhWnJ1WMTXXH7E IQAhQYUzfAPnGNJjINHQRS9OYYlnCTY2IQJwyoVrpI VvYJliMT5NEAHmqeJxUtXaAWSVXTr+Ug1PUE8ai9UyFSrfDxOoIC3ugk8ZFGqNLcWkM5D9cCGpI3B9MN vcAg0LDUFbQDKaYzUkBVMUMJegJJ7IYY2vwaC4IW4CxPUrGHWwELGqrRKbWCp1E12bjLMvNReiOJ5VDJ A+Dania+Gn1OXTCiCOIuJKWcKnSmSYPNRjWaM6RfG1LB m8JuM4FjXM61gRobzrLbQTvqYR1BOO1gZJKwSTYJEX2GvURxzT6ddnSjLLMgQEFMLtMfS38agYYeOJHc DEZdQNKvPd5RIAZlI2MiqaZbuMukgjHrOEJtYKORPY6PJEzsndUbaAOumHfmCH55eQtwSQ5AIv5ZFxTv JC9ekm7XaYNhQz7KCMHkRg9AZADfRANaXULcXYQ4YZ ZxMmSfUQlvCCPvWZKyIMP2YOHoDJHzTJ1SPhUtPEEfMtw2FQHpBZZjHTNuxh4KYTIbBTC3RLXzEEZgXP PlEYJkCAusXQUpFWLkJXL6KJXyLAAbMJ4ETbOrYEKcQONoJAMmRVGxSCDcqb9EIVQmCHTsCFF6MJKvWO WtFUHiUWxnJYYfZBG6NRD1WLQuKVKvDF8GEdGwWDCr EUreEqYzSZXiIEAush5CSDZhZRFmVYx7OSRqUOJrCCOlFZdpUZZaWHChOMs7XXIcKXVqAA7ZXfJvGENs NEY5MbFtIHPvDDEaxi2YBDXyQCNgXFkkEKFwVKEuAAMhBJwvWYWnCNE4LhQ7QBEmXFQkUI6CTdSjMODa IAy4ZlNfBOQaQNZvxs9BCNFyEWJeEYnkMvXcFHSfQO UbQBhfYPJfSVGxAKI1ETSnXGKaQH6SNqOkVRNoIcV5SANvNEJiXIMtaj3CFEJpNSEdAoW1EfSlQHBzXZ NwBFhqCVUlEBBuZJE3PTMfBAYtOK7NFdPzPPPiLhGtVVNfJRJfKGUbnu2QPPEdNAUaAbD4MsKsLODnSH FdGWgtPLKgWXA5SbG0WAFlSTItZH8YDjGjBQTrEvY3 LOxgMNGqYIOotd8KXHDsRCReMUb3IFLnCIVwKVPfAQciACFyUKW1JqO3SOPyQIFvSX7WFvVxJRYdTiR4 YTUgPFMiPHTydt4PXPOkEJOfUnJ1WNXhAFKcKCJuCHkxMLKyQXO7SDrhZKKfRDPbBS3MOgJuCRBwWoh0 VQuxPTDhGPYxqa2ZFEBmRTEzVju8DyQiEROmQWRgWU nfHIYyREZ3DlQ5WLUdWWVyFW0TDuTiSHJkYwmnDCKmFYYxACZpmc4XPUIyMKLeIRt3ARNmQZKvYBCxAI jlFXZsILOtHcb8GIXxXCFhRD1EQbZsPJWgYFJqRYjdVQXtLQEobh4ESWQxIIL7UPQ4TCObKYQoOROhFB u1bsLrgRJpZPa1XM1AX7FftuLkUzrPAo3Yn347WIP5 LDHuEl4QF1wbJx7mKORyUBTHSd6GOUi4EZxrZ2QmSKJtBQDdGnD1PgAfBSbcIxFcVhi6LbNeDYJ+IDww B0OkCmYnM4S4RgBkYFmcOhTnDHC9NYEzHfT9MwOaOV8sFLXQJo3+JXcfpRYgjDzkMRORKpAuMzB1SMff LFATNf2A ID Date Data Source [id number] 01/13/2020 09:31:45 AM [facility] Value Range Interpretation Code Description Data Mera rce(s) Supporting Document(s) Lamotrigine [Mass/volume] in Serum or Plasma 6.4 ug/mL 3.0-14.0 [facility] ID Date Data Source [id number] 01/11/2020 04:48:59 PM [facility] Value Range Interpretation Code Description Data Mera rce(s) Supporting Document(s) Lamotrigine [Mass/volume] in Serum or Plasma 10.0 ug/mL 3.0-14.0 [facility] ID Date Data Source [id number] 01/11/2020 12:16:16 PM [facility] Value Range Interpretation Code Description Data Mera rce(s) Supporting Document(s) Lamotrigine [Mass/volume] in Serum or Plasma 3.0-14.0 [facility] Specimen HemolyzedNotified [id number] /EMU 01/11/20 [id number]. ID Date Data Source [id number] 01/11/2020 12:40:51 PM [facility] Value Range Interpretation Code Description Data Mera rce(s) Supporting Document(s) Choriogonadotropin.beta subunit [Moles/volume] in Serum or Plasma <5 [facility] ID Date Data Source [id number] 01/19/2020 10:40:00 AM [facility] First test? NOEmployed in healthcare? NOSymptomatic per CDC? NOHospitalized? NOICU? NOResident in congregated care? ex [facility], [facility] NO? NO Name Value Range Interpretation Code Description Data Mera rce(s) Supporting Document(s) SARS-CoV-2 RNA Negative Normal (applies to non-numeric r esults) [facility] Negative results should be treated as [...] Certificate of Accreditation. Factsheets for healthcare providers: https://www.fda.gov/media/992651/download Factsheets for patients: https://www.fda.gov/media/750750/download The [employer] NOW Instrument is a rapid molecular in vitro diagnostic test utilizing an isothermal nucleic acid amplification technology intended for the qualitative detection of nucleic acid from the SARS-CoV-2 viral RNA. THIS IS A STATE REPORTABLE COMMUNICABLE DISEASE. Manual entry verified by Mayelin Denson 01/19/20 1038 ID Date Data Source [id number] 01/19/2020 12:50:00 PM EST [facility] COVID-19 Patient Ethnicity Not or LatinoCOVID-19 Patient Race WhiteCOVID-19 Specimen Source Nasopharyngeal Name Value Range Interpretation Code Description Data Mera rce(s) Supporting Document(s) SARS-CoV-2 Specimen Source Normal (applies to n on-numeric results) [facility] SARS-CoV-2 RNA Normal (applies to non-numeric r esults) [facility] Patient Race Normal (applies to non-numeric result s) [facility] Patient Ethnicity Normal (applies to non-numeri c results) [facility] See scanned report ID Date Data Source [id number] 12/10/2019 08:10:00 AM EDT MEDENT ([facility], ) Name Value Range Interpretation Code Description Data Mera rce(s) Supporting Document(s) FVC-Pred 4.03 L MEDENT ([facility], ) PDFReport Laboratory test result MEDENT ([facility], ) FVC-LLN 3.29 L MED[facility] ([facility]) FVC-%Pred-Pre 30 L MED[facility] ([facility]) FVC-Pre 1.22 L MED[facility] ([facility]) Fev1-Pred 3.40 L [facility] ([facility]) Fev1-Pre 1.21 L MED[facility] ([facility]) Fev1-%Pred-Pre 35 L MEDENT ([facility]) Fev1-LLN 2.77 L MED[facility] ([facility]) Fev6-Pre 1.22 L MED[facility] ([facility]) Fev6-Pred 3.99 L MED[facility] ([facility]) Fev6-%Pred-Pre 30 L MED[facility] ([facility]) Fev6-LLN 3.27 L MED[facility] ([facility]) Xne5tfn-Wqv 99 % MED[facility] ([facility]) Edu6dwp-Sqmo 85 % [facility] ([facility]) Zhv0hdu-Woyf 99 % [facility] ([facility]) Hrc4juk-GHF 75 % [facility] ([facility]) Wla7gbm-%Pred-Pre 116 % [facility] ([facility]) FEFMax-Pred 7.30 L/E/sec MED[facility] ([facility]) Qer6kxd-Hzd 100 % [facility] ([facility]) Prt0moe-%Pred-Pre 100 % [facility] ([facility]) FEFMax-%Pred-Pre 26 L/E/sec [facility] ([facility]) FEFMax-Pre 1.96 L/E/sec [facility] ([facility]) FEFMax-LLN 5.48 L/E/sec MED[facility] ([facility]) Sfi4164-Runy 3.61 L/E/sec MED[facility] ([facility]) Rsl8409-UGD 2.29 L/E/sec [facility] ([facility]) Ckj0869-%Pred-Pre 45 L/E/sec MED[facility] ([facility]) Von9215-Wnk 1.64 L/E/sec MED[facility] ([facility]) ExpTime-Pre 1.59 sec [facility] ([facility]) Cbe9wwo3-Seno 86 % [facility] ([facility]) Bte2ywc7-%Pred-Pre 115 % [facility] ([facility]) Iac8bli1-Bvd 99 % [facility] ([facility]) Glz2fro3-GWY 77 % [facility] ([facility]) ID Date Data Source [id number] 11/06/2019 03:49:00 PM EDT [facility] ([facility]) Name Value Range Interpretation Code Description Data Mera rce(s) Supporting Document(s) Lamotrigine [Mass/volume] in Serum or Plasma 9.0 ug/mL 2.0-20.0 [facility] Testing on this sample was performed by homogeneous enzyme immunoassay. Detection Limit = 1.0 Performed at: [employer] [address] [place] [id number] Metal Spray Operator: Nilam Mendoza [facility], Phone: [phone] Procedure Social History Code Duration Value Status Description Data Source(s ) Smoking 11/25/2020 12:00:00 AM EDT Patient has never smoked co mpleted Patient has never smoked [facility] ([facility]) Smoking 09/06/2020 12:00:00 AM EDT Never Smoker completed Never S moker eCW1 ([facility]) Smoking 07/26/2020 12:00:00 AM EDT Never Smoker completed Never S moker eCW1 ([facility]) Smoking 07/26/2020 12:00:00 AM EDT Never Smoker completed Never S moker eCW1 ([facility]) Smoking 07/26/2020 12:00:00 AM EDT Never Smoker completed Never S moker eCW1 ([facility]) Smoking 04/27/2020 12:00:00 AM EST Never Smoker completed Never S moker eCW1 ([facility]) Smoking 04/27/2020 12:00:00 AM EST Never Smoker completed Never S moker eCW1 ([facility]) Smoking 03/28/2020 12:00:00 AM EST Never Smoker completed Never S moker eCW1 ([facility]) Smoking 03/28/2020 12:00:00 AM EST Never Smoker completed Never S moker eCW1 ([facility]) Smoking 03/28/2020 12:00:00 AM EST Never Smoker completed Never S moker eCW1 ([facility]) Smoking 03/28/2020 12:00:00 AM EST Never Smoker completed Never S moker eCW1 ([facility]) Smoking 03/28/2020 12:00:00 AM EST Never Smoker completed Never S moker eCW1 ([facility]) Smoking 03/28/2020 12:00:00 AM EST Never Smoker completed Never S moker eCW1 ([facility]) Smoking 03/10/2020 12:00:00 AM EST Never Smoker completed Never S moker eCW1 ([facility]) Alcohol intake 01/11/2020 12:00:00 AM EST Lifetime non-drinker (finding) completed Lifetime non-drinker (finding) [facility] ital Tobacco use and exposure 01/11/2020 12:00:00 AM EST Never used co mpleted Never used [facility] Smoking 01/11/2020 12:00:00 AM EST Never smoker completed Never [facility] Vital Signs ID Date Data Source UNK Name Value Range Interpretation Code Description Data Source(s) Systolic blood pressure 116 mm[Hg] 116 mm[Hg] M [facility] ([facility]) Diastolic blood pressure 74 mm[Hg] 74 mm[Hg] [facility] ([facility]) Heart rate 79 /min 79 /min [facility] ([facility]) Oxygen saturation in Arterial blood by Pulse oximetry 98 % 98 % [facility] ([facility]) Body height 67 [in_i] 67 [in_i] [facility] ([facility]) 5'7" Body weight 186.00 [lb_av] 186.00 [lb_av] [facility] ([facility]) Body mass index (BMI) [Ratio] 29.1 kg/m2 29.1 k g/m2 [facility] ([facility]) [place] body weight 135 [lb_av] 135 [lb_av] MEDEN T ([facility]) Body weight 84.370 kg 84.370 kg [facility] ([facility]) Body surface area Derived from formula 1.96 m2 1.96 m2 [facility] ([facility]) Diastolic blood pressure 80 mm[Hg] 80 mm[Hg] [facility] ([facility]) Heart rate 84 /min 84 /min [facility] ([facility]) Respiratory rate 16 /min 16 /min [facility] ( [facility]) Systolic blood pressure 110 mm[Hg] 110 mm[Hg] [facility] ([facility]) Body weight 185.00 [lb_av] 185.00 [lb_av] MEDEN T ([facility]) Body mass index (BMI) [Ratio] 29.0 kg/m2 29.0 k g/m2 [facility] ([facility]) [place] body weight 135 [lb_av] 135 [lb_av] MEDEN T ([facility]) Body weight 83.916 kg 83.916 kg [facility] ([facility]) Body surface area Derived from formula 1.96 m2 1.96 m2 [facility] ([facility]) Body height 67 [in_i] 67 [in_i] [facility] ([facility]) 5'7" Body weight 186 [lb_av] 186 [lb_av] eCW1 (On license of [facility]) Body mass index (BMI) [Ratio] 29.13 kg/m2 29.13 kg/m2 eCW1 ([facility]) Body weight 84.37 kg 84.37 kg eCW1 ([facility]) Systolic blood pressure 130 mm[Hg] 130 mm[Hg] e CW1 ([facility]) Diastolic blood pressure 82 mm[Hg] 82 mm[Hg] eCW1 ([facility]) Body height 67 [in_i] 67 [in_i] eCW1 ([facility]) Body weight 190.2 [lb_av] 190.2 [lb_av] eCW1 ([facility]) Body height 67 [in_i] 67 [in_i] eCW1 ([facility]) Body mass index (BMI) [Ratio] 29.79 kg/m2 29.79 kg/m2 eCW1 ([facility]) Heart rate 95 /min 95 /min eCW1 ([facility]) Respiratory rate 18 /min 18 /min eCW1 ([facility]) Body temperature 97.5 [degF] 97.5 [degF] eCW1 ( [facility]) Systolic blood pressure 108 mm[Hg] 108 mm[Hg] e CW1 ([facility]) Diastolic blood pressure 74 mm[Hg] 74 mm[Hg] eCW1 ([facility]) Systolic blood pressure 110 mm[Hg] 110 mm[Hg] M EDENT ([facility] ) Diastolic blood pressure 80 mm[Hg] 80 mm[Hg] MEDENT ([facility], ) Heart rate 76 /min 76 /min MEDENT ([facility], ) Respiratory rate 16 /min 16 /min MEDENT ( [facility] ) Body height 67 [in_i] 67 [in_i] [facility]ENT ([facility], ) 5'7" Body weight 194.00 [lb_av] 194.00 [lb_av] MEDEN T ([facility], ) Body mass index (BMI) [Ratio] 30.4 kg/m2 30.4 k g/m2 [facility] ([facility]) [place] body weight 135 [lb_av] 135 [lb_av] MEDEN T ([facility]) Body weight 87.998 kg 87.998 kg [facility] ([facility]) Body surface area Derived from formula 2.00 m2 2.00 m2 [facility] ([facility]) Body height 67 [in_i] 67 [in_i] [facility] ([facility]) 5'7" Body mass index (BMI) [Ratio] 30.4 kg/m2 30.4 k g/m2 [facility] ([facility]) [place] body weight 135 [lb_av] 135 [lb_av] MEDEN T ([facility]) Systolic blood pressure 122 mm[Hg] 122 mm[Hg] [facility] ([facility]) Diastolic blood pressure 68 mm[Hg] 68 mm[Hg] [facility] ([facility]) Body weight 194.00 [lb_av] 194.00 [lb_av] MEDEN T ([facility]) Body weight 87.998 kg 87.998 kg [facility] ([facility]) Body surface area Derived from formula 2.00 m2 2.00 m2 [facility] ([facility]) Oxygen saturation in Arterial blood by Pulse oximetry 98 % 98 % [facility] ([facility]) Diastolic blood pressure 88 mm[Hg] 88 mm[Hg] [facility] ([facility]) Heart rate 62 /min 62 /min [facility] ([facility]) [place] body weight 130 [lb_av] 130 [lb_av] MEDEN T ([facility]) Body temperature 96.2 [degF] 96.2 [degF] [facility] ([facility]) Body height 66 [in_i] 66 [in_i] [facility] ([facility]) 5'6" Body weight 192.00 [lb_av] 192.00 [lb_av] MEDEN T ([facility]) Body mass index (BMI) [Ratio] 31.0 kg/m2 31.0 k g/m2 [facility] ([facility]) Systolic blood pressure 120 mm[Hg] 120 mm[Hg] [facility] Body weight 87.091 kg 87.091 kg [facility] ([facility]) Body surface area Derived from formula 1.97 m2 1.97 m2 [facility] ([facility]) Oxygen saturation in Arterial blood by Pulse oximetry 98 % 98 % [facility] ([facility]) Body temperature 96.2 [degF] 96.2 [degF] [facility] ([facility]) Body height 66 [in_i] 66 [in_i] [facility] ([facility]) 5'6" Body weight 192.00 [lb_av] 192.00 [lb_av] MED[facility] T ([facility]) Body mass index (BMI) [Ratio] 31.0 kg/m2 31.0 k g/m2 [facility] ([facility]) [place] body weight 130 [lb_av] 130 [lb_av] MEDEN T ([facility]) Body weight 87.091 kg 87.091 kg [facility] ([facility]) Body surface area Derived from formula 1.97 m2 1.97 m2 [facility] ([facility]) Body height 66 [in_i] 66 [in_i] [facility] ([facility] 5'6" Body weight 185.00 [lb_av] 185.00 [lb_av] [facility] T ([facility]) Systolic blood pressure 96 mm[Hg] 96 mm[Hg] M EDENT ([facility]) Diastolic blood pressure 74 mm[Hg] 74 mm[Hg] [facility] ([facility]) Heart rate 75 /min 75 /min [facility]) Body mass index (BMI) [Ratio] 29.9 kg/m2 29.9 k g/m2 [facility] ([facility]) Body weight 83.916 kg 83.916 kg [facility] ([facility]) Body temperature 96.6 [degF] 96.6 [degF] [facility] ([facility]) Body weight 185 [lb_av] 185 [lb_av] eCW1 (On license of [facility]) Body height 67 [in_i] 67 [in_i] eCW1 ([facility]) Body mass index (BMI) [Ratio] 28.97 kg/m2 28.97 kg/m2 eCW1 ([facility]) Heart rate 74 /min 74 /min eCW1 ([facility]) Respiratory rate 18 /min 18 /min eCW1 ([facility]) Body temperature 97.1 [degF] 97.1 [degF] eCW1 ( [facility]) Systolic blood pressure 102 mm[Hg] 102 mm[Hg] e CW1 ([facility]) Diastolic blood pressure 66 mm[Hg] 66 mm[Hg] eCW1 ([facility]) Diastolic blood pressure 80 mm[Hg] 80 mm[Hg] eCW1 ([facility]) Body weight 186.4 [lb_av] 186.4 [lb_av] eCW1 ([facility]) Body height 67 [in_i] 67 [in_i] eCW1 ([facility]) Body mass index (BMI) [Ratio] 29.19 kg/m2 29.19 kg/m2 eCW1 ([facility]) Heart rate 94 /min 94 /min eCW1 ([facility]) Respiratory rate 18 /min 18 /min eCW1 ([facility]) Body temperature 96.3 [degF] 96.3 [degF] eCW1 ( [facility]) Systolic blood pressure 130 mm[Hg] 130 mm[Hg] e CW1 ([facility]) Body weight 200 [lb_av] 200 [lb_av] eCW1 (On license of [facility]) Body height 67 [in_i] 67 [in_i] eCW1 ([facility]) Body mass index (BMI) [Ratio] 31.32 kg/m2 31.32 kg/m2 eCW1 ([facility]) Heart rate 84 /min 84 /min eCW1 ([facility]) Respiratory rate 17 /min 17 /min eCW1 ([facility]) Body temperature 97.4 [degF] 97.4 [degF] eCW1 ( [facility]) Systolic blood pressure 112 mm[Hg] 112 mm[Hg] e CW1 ([facility]) Diastolic blood pressure 74 mm[Hg] 74 mm[Hg] eCW1 ([facility]) Systolic blood pressure 104 mm[Hg] 104 mm[Hg] M EDENT ([facility]) Diastolic blood pressure 82 mm[Hg] 82 mm[Hg] [facility] ([facility]) Heart rate 75 /min 75 /min [facility] ([facility]) Oxygen saturation in Arterial blood by Pulse oximetry 95 % 95 % [facility] ([facility]) Body temperature 96.5 [degF] 96.5 [degF] [facility] ([facility]) Body height 66 [in_i] 66 [in_i] [facility] ([facility]) 5'6" Body weight 179.00 [lb_av] 179.00 [lb_av] [facility] ([facility]) Body mass index (BMI) [Ratio] 28.9 kg/m2 28.9 k g/m2 [facility] ([facility]) [place] body weight 130 [lb_av] 130 [lb_av] [facility] Body weight 81.194 kg 81.194 kg [facility] ([facility]) Body surface area Derived from formula 1.91 m2 1.91 m2 [facility] ([facility]) Respiratory rate 16 /min 16 /min [facility] ( [facility]) Systolic blood pressure 110 mm[Hg] 110 mm[Hg] [facility] Diastolic blood pressure 70 mm[Hg] 70 mm[Hg] [facility] ([facility]) Heart rate 68 /min 68 /min [facility] ([facility]) ID Date Data Source [id number] 03/03/2020 10:35:00 AM EST [facility] Name Value Range Interpretation Code Description Data Source(s) Weight Measurement Method 8 8 [facility] Weight 3360 3360 [facility] pital Temperature Source 3 3 [facility] Temperature [address] [facility] spital Respiratory Effort 1 1 [facility] Respiratory Rate 18 18 [facility] Pulse Assessment Method 4 4 G [facility] Pulse Rate 84 84 [facility] Height 66 66 [facility] 95/80 95/80 [facility] Weight Measurement Method 8 8 [facility] Weight 3360 3360 [facility] pital Temperature Source 3 3 [facility] Temperature [address] [facility] spital Respiratory Effort 1 1 [facility] Respiratory Rate 18 18 [facility] Pulse Assessment Method 4 4 G [facility] Pulse Rate 84 84 [facility] pital Height 66 66 [facility] Blood Pressure 95/80 95/80 [facility] ID Date Data Source [id number] 01/20/2020 03:57:01 PM [facility] Name Value Range Interpretation Code Description Data Source(s) WEIGHT RECORDED 204.9 lb 204.9 lb [facility] Body height Measured 67.2 in 67.2 in [facility] Patient Treatment Plan of Care Planned Activity Planned Date Details Description Data Source (s) Azelastine HCl 0.15 % 04/27/2020 12:00:00 AM EST [facility] ([facility]) Azelastine HCl 0.15 % 04/27/2020 12:00:00 AM EST eCW1 ([facility]) Sodium Chloride 0.111 MEQ/ML Nasal [place] 03/10/2020 12:00:00 AM EST [facility] ([facility]) Fluticasone Propionate 50 MCG/ACT 02/22/2020 12:00:00 AM EST eC ([facility]) Fluticasone Propionate 50 MCG/ACT 02/22/2020 12:00:00 AM EST [facility] ([facility]) Acetaminophen 325 MG Oral Tablet 01/11/2020 07:53:09 AM [facility] Bisacodyl 10 MG Rectal Suppository 01/11/2020 07:53:09 AM [facility] alginic acid 200 MG / Calcium Carbonate 80 MG / magnesium trisilicate 20 MG / Sodium Bicarbonate 70 MG Oral Tablet 01/11/2020 07:53:09 AM [facility] Diphenhydramine Hydrochloride 25 MG Oral Capsule 01/11/2020 07:53:0 9 AM [facility] Ibuprofen 200 MG Oral Tablet 01/11/2020 07:53:09 AM [facility] Magnesium Hydroxide 80 MG/ML Oral Suspension 01/11/2020 07:53:09 AM [facility] Ondansetron 4 MG Oral Tablet 01/11/2020 07:53:09 AM [facility] drospirenone 3 MG / Ethinyl Estradiol 0.02 MG Oral Tab let 01/04/2020 12:00:00 AM [facility]spital lamotrigine 200 MG Oral Tablet 12/27/2019 12:00:00 AM [facility] 24 HR venlafaxine 37.5 MG Extended Release Oral Capsul e 12/27/2019 12:00:00 AM [facility] Hydroxyzine Hydrochloride 25 MG Oral Tablet 12/27/2019 12:00:00 AM [facility] aripiprazole 20 MG Oral Tablet 12/27/2019 12:00:00 AM [facility] buspirone hydrochloride 10 MG Oral Tablet 12/23/2019 12:00:00 AM [facility] 24 HR venlafaxine 75 MG Extended Release Oral Capsule 12/20/2019 12:00:00 AM [facility] ospital
[2020-12-23 20:38] LABS: HEMATOCRIT 42.2 % (36.0-47.0); HEMOGLOBIN 13.8 g/dl (12.0-15.5); MEAN CORPUSCULAR HEMOGLOBIN 27.4 pg (27.0-33.0); MEAN CORPUSCULAR HGB CONC 32.7 g/dl (32.0-36.5); MEAN CORPUSCULAR VOLUME 83.9 fl (80.0-96.0); PLATELET COUNT, AUTOMATED 304 10^3/uL (150-450); RED BLOOD COUNT 5.03 10^6/uL (4.00-5.40); WHITE BLOOD COUNT 11.8 10^3/uL (4.0-10.0)
[2020-12-23 20:54] LABS: HCG, SERUM QUALITATIVE NEGATIVE (NEGATIVE)
[2020-12-23 21:11] LABS: ACETAMINOPHEN LEVEL < 2.0 UG/ML (10.0-30.0); ALBUMIN 3.4 GM/DL (3.2-5.2); ALT/SGPT 19 U/L (12-78); BILIRUBIN,DIRECT 0.2 MG/DL (0.0-0.2); BILIRUBIN,TOTAL 0.4 MG/DL (0.2-1.0); BLOOD UREA NITROGEN 13 MG/DL (7-18); CALCIUM LEVEL 9.8 MG/DL (8.5-10.1); CARBON DIOXIDE LEVEL 29 MEQ/L (21-32); CHLORIDE LEVEL 109 MEQ/L (98-107); CREATININE FOR GFR 0.76 MG/DL (0.55-1.30); ETHYL ALCOHOL (ETHANOL) < 0.003 % (0.000-0.010); GLOMERULAR FILTRATION RATE > 60.0 (>60); GLUCOSE, FASTING 86 MG/DL (70-100); POTASSIUM SERUM 4.3 MEQ/L (3.5-5.1); SALICYLATE LEVEL < 1.7 MG/DL (5.0-30.0); SODIUM LEVEL 142 MEQ/L (136-145); TOTAL PROTEIN 7.5 GM/DL (6.4-8.2)
[2020-12-23 21:53] LABS: AMPHETAMINES LEVEL URINE NEGATIVE (NEGATIVE); BARBITURATES URINE NEGATIVE (NEGATIVE); BENZODIAZEPINES URINE NEGATIVE (NEGATIVE); CANNABINOIDS URINE NEGATIVE (NEGATIVE); COCAINE METABOLITE URINE NEGATIVE (NEGATIVE); METHADONE URINE NEGATIVE (NEGATIVE); OPIATES URINE NEGATIVE (NEGATIVE); PHENCYCLIDINE URINE NEGATIVE (NEGATIVE)
[2020-12-23 22:23] VITALS: BP 126/73
== END 2020-12-24 02:21 | disposition home or self-care (01) ==
LOC: M ED 18:47
DX: F43.0 Acute stress reaction (principal); F32.9 Major depressive disorder, single episode, unspecified; Z79.899 Other long term (current) drug therapy

== ENCOUNTER → 2020-12-28 | Outpatient (CLI) | payer MEDICARE, MEDICAID ==
[2020-12-28 08:43] LABS: HEMATOCRIT 43.2 % (36.0-47.0); MEAN CORPUSCULAR HEMOGLOBIN 27.5 pg (27.0-33.0); MEAN CORPUSCULAR HGB CONC 32.4 g/dl (32.0-36.5); MEAN CORPUSCULAR VOLUME 84.9 fl (80.0-96.0); PLATELET COUNT, AUTOMATED 298 10^3/uL (150-450); RED BLOOD COUNT 5.09 10^6/uL (4.00-5.40); WHITE BLOOD COUNT 5.8 10^3/uL (4.0-10.0)
[2020-12-28 09:23] LABS: ALBUMIN 3.4 GM/DL (3.2-5.2); ALT/SGPT 22 U/L (12-78); BILIRUBIN,TOTAL 0.5 MG/DL (0.2-1.0); BLOOD UREA NITROGEN 10 MG/DL (7-18); CALCIUM LEVEL 9.7 MG/DL (8.5-10.1); CARBON DIOXIDE LEVEL 28 MEQ/L (21-32); CHLORIDE LEVEL 109 MEQ/L (98-107); CHOLESTEROL LEVEL 274 MG/DL (<200); CHOLESTEROL RISK RATIO 3.971 (<5); GLOMERULAR FILTRATION RATE > 60.0 (>60); GLUCOSE, FASTING 73 MG/DL (70-100); HDL CHOLESTEROL 69 MG/DL (>40); LDL CHOLESTEROL 158 MG/DL (<100); NON-HDL-C 205 MG/DL; POTASSIUM SERUM 4.5 MEQ/L (3.5-5.1); SODIUM LEVEL 141 MEQ/L (136-145); TOTAL PROTEIN 7.1 GM/DL (6.4-8.2); TRIGLYCERIDES LEVEL 233 MG/DL (<150)
== END ==
LOC: M LAB 07:19
PROVIDERS: ATTEND Family Medicine
DX: K80.50 Calculus of bile duct without cholangitis or cholecystitis without obstruction (principal); E78.2 Mixed hyperlipidemia; Z79.899 Other long term (current) drug therapy

== ENCOUNTER → 2021-04-21 | Outpatient (REF) | payer MEDICARE, MEDICAID ==
[2021-04-21 11:44] LABS: BASO % 0.7 % (0.0-1.0); EOS # 0.3 10^3/uL (0.0-0.5); EOS % 4.2 % (0.0-3.0); HEMATOCRIT 42.5 % (36.0-47.0); HEMOGLOBIN 13.7 g/dl (12.0-15.5); LYMPH % 16.7 % (24.0-44.0); MEAN CORPUSCULAR HEMOGLOBIN 28.4 pg (27.0-33.0); MEAN CORPUSCULAR HGB CONC 32.2 g/dl (32.0-36.5); MEAN CORPUSCULAR VOLUME 88.2 fl (80.0-96.0); MONO # 0.6 10^3/uL (0.0-0.8); MONO % 10.4 % (2.0-8.0); NEUTROPHILS % 67.3 % (36.0-66.0); PLATELET COUNT, AUTOMATED 270 10^3/uL (150-450); RED BLOOD COUNT 4.82 10^6/uL (4.00-5.40)
[2021-04-21 12:23] LABS: ALBUMIN 3.5 GM/DL (3.2-5.2); ALT/SGPT 19 U/L (12-78); BILIRUBIN,DIRECT 0.2 MG/DL (0.0-0.2); BILIRUBIN,TOTAL 0.5 MG/DL (0.2-1.0); BLOOD UREA NITROGEN 9 MG/DL (7-18); CALCIUM LEVEL 9.8 MG/DL (8.5-10.1); CARBON DIOXIDE LEVEL 30 MEQ/L (21-32); CHLORIDE LEVEL 103 MEQ/L (98-107); CREATININE FOR GFR 0.97 MG/DL (0.55-1.30); GLOMERULAR FILTRATION RATE > 60.0 (>60); GLUCOSE, FASTING 72 MG/DL (70-100); LIPASE 156 U/L (73-393); POTASSIUM SERUM 4.8 MEQ/L (3.5-5.1); SODIUM LEVEL 140 MEQ/L (136-145)
== END ==
LOC: M SFHCCLAY 08:58
PROVIDERS: ATTEND Family Medicine
DX: K80.50 Calculus of bile duct without cholangitis or cholecystitis without obstruction (principal)

== ENCOUNTER → 2021-05-29 | Outpatient (CLI) | payer MEDICARE, MEDICAID | LOC: M LABSMTC 11:01 | PROVIDERS: ATTEND Internal Medicine Gastroenterology | DX: Z01.812 Encounter for preprocedural laboratory examination (principal); Z20.822 Contact with and (suspected) exposure to COVID-19 ==

== ENCOUNTER → 2021-06-20 | Outpatient (REF) | payer MEDICARE, MEDICAID ==
[2021-06-20 16:18] LABS: HEMOGLOBIN 12.3 g/dl (12.0-15.5); MEAN CORPUSCULAR HEMOGLOBIN 29.6 pg (27.0-33.0); MEAN CORPUSCULAR HGB CONC 32.4 g/dl (32.0-36.5); MEAN CORPUSCULAR VOLUME 91.3 fl (80.0-96.0); PLATELET COUNT, AUTOMATED 339 10^3/uL (150-450); RED BLOOD COUNT 4.16 10^6/uL (4.00-5.40); WHITE BLOOD COUNT 6.8 10^3/uL (4.0-10.0)
[2021-06-20 16:38] LABS: ALBUMIN 3.2 GM/DL (3.2-5.2); ALT/SGPT 109 U/L (12-78); BILIRUBIN,TOTAL 2.4 MG/DL (0.2-1.0); BLOOD UREA NITROGEN 11 MG/DL (7-18); CALCIUM LEVEL 9.7 MG/DL (8.5-10.1); CARBON DIOXIDE LEVEL 30 MEQ/L (21-32); CHLORIDE LEVEL 102 MEQ/L (98-107); CREATININE FOR GFR 0.86 MG/DL (0.55-1.30); GLOMERULAR FILTRATION RATE > 60.0 (>60); GLUCOSE, FASTING 78 MG/DL (70-100); POTASSIUM SERUM 4.3 MEQ/L (3.5-5.1); SODIUM LEVEL 138 MEQ/L (136-145)
== END ==
LOC: M WUC 15:37
PROVIDERS: ATTEND Family Medicine
DX: Z90.49 Acquired absence of other specified parts of digestive tract (principal); K80.50 Calculus of bile duct without cholangitis or cholecystitis without obstruction

== ENCOUNTER → 2021-06-21 | Outpatient (CLI) | payer MEDICARE, MEDICAID | LOC: M LABSMTC 09:38 | PROVIDERS: ATTEND Internal Medicine Gastroenterology | DX: Z11.52 Encounter for screening for COVID-19 (principal) ==

== ENCOUNTER → 2021-08-01 | Outpatient (CLI) | payer MEDICARE, MEDICAID ==
[2021-08-01 20:13] LABS: BASO # 0.1 10^3/uL (0.0-0.2); BASO % 0.7 % (0.0-1.0); EOS # 0.2 10^3/uL (0.0-0.5); EOS % 3.4 % (0.0-3.0); HEMATOCRIT 39.6 % (36.0-47.0); HEMOGLOBIN 12.7 g/dl (12.0-15.5); LYMPH # 1.3 10^3/uL (1.5-5.0); LYMPH % 18.9 % (24.0-44.0); MEAN CORPUSCULAR HGB CONC 32.1 g/dl (32.0-36.5); MEAN CORPUSCULAR VOLUME 93.4 fl (80.0-96.0); MONO # 0.7 10^3/uL (0.0-0.8); MONO % 10.1 % (2.0-8.0); NEUTROPHILS # 4.5 10^3/uL (1.5-8.5); NEUTROPHILS % 66.2 % (36.0-66.0); PLATELET COUNT, AUTOMATED 281 10^3/uL (150-450); RED BLOOD COUNT 4.24 10^6/uL (4.00-5.40); WHITE BLOOD COUNT 6.8 10^3/uL (4.0-10.0)
[2021-08-01 20:37] LABS: ALT/SGPT 31 U/L (12-78); BILIRUBIN,DIRECT 0.2 MG/DL (0.0-0.2); BILIRUBIN,TOTAL 0.5 MG/DL (0.2-1.0); BLOOD UREA NITROGEN 13 MG/DL (7-18); CARBON DIOXIDE LEVEL 31 MEQ/L (21-32); CHLORIDE LEVEL 104 MEQ/L (98-107); GLOMERULAR FILTRATION RATE > 60.0 (>60); GLUCOSE, FASTING 87 MG/DL (70-100); LIPASE 463 U/L (73-393); POTASSIUM SERUM 4.1 MEQ/L (3.5-5.1); SODIUM LEVEL 139 MEQ/L (136-145); TOTAL PROTEIN 6.5 GM/DL (6.4-8.2)
== END ==
LOC: M WUC 15:13
PROVIDERS: ATTEND Family Medicine
DX: K30 Functional dyspepsia (principal); K80.50 Calculus of bile duct without cholangitis or cholecystitis without obstruction

== ENCOUNTER → 2021-08-23 | Outpatient (CLI) | payer MEDICARE, MEDICAID ==
[2021-08-23 14:59] LABS: ALT/SGPT 61 U/L (12-78); BILIRUBIN,DIRECT 1.6 MG/DL (0.0-0.2); BILIRUBIN,TOTAL 1.8 MG/DL (0.2-1.0); BLOOD UREA NITROGEN 11 MG/DL (7-18); CALCIUM LEVEL 9.9 MG/DL (8.5-10.1); CARBON DIOXIDE LEVEL 29 MEQ/L (21-32); CHLORIDE LEVEL 104 MEQ/L (98-107); CREATININE FOR GFR 0.65 MG/DL (0.55-1.30); GLOMERULAR FILTRATION RATE > 60.0 (>60); GLUCOSE, FASTING 73 MG/DL (70-100); POTASSIUM SERUM 4.4 MEQ/L (3.5-5.1); SODIUM LEVEL 141 MEQ/L (136-145); TOTAL PROTEIN 6.8 GM/DL (6.4-8.2)
[2021-08-23 15:40] LABS: CA19-9 TUMOR MARKER,CARBOHYDRA 67.8 U/ML (<35.0)
== END ==
LOC: M WUC 10:22
PROVIDERS: ATTEND Physician Assistant
DX: R19.7 Diarrhea, unspecified (principal); K83.1 Obstruction of bile duct

== ENCOUNTER → 2021-08-24 | Outpatient (REF) | payer MEDICARE, MEDICAID | LOC: M LAB REF 15:16 | PROVIDERS: ATTEND Physician Assistant | DX: R19.7 Diarrhea, unspecified (principal) ==

== ENCOUNTER → 2021-09-07 | Outpatient (CLI) | payer MEDICARE, MEDICAID ==
[~2021-09-07] MED LIST changes: +CLOT1CRE56 TOP; +DIVA500T9 PO; +LAMO100T80 PO; +MUPI2OI TOP; +URSO1TAB8 PO
[2021-09-07 14:04] LABS: BASO % 0.4 % (0.0-1.0); EOS # 0.2 10^3/uL (0.0-0.5); EOS % 1.9 % (0.0-3.0); HEMATOCRIT 42.5 % (36.0-47.0); HEMOGLOBIN 13.2 g/dl (12.0-15.5); LYMPH # 0.5 10^3/uL (1.5-5.0); LYMPH % 5.7 % (24.0-44.0); MEAN CORPUSCULAR HEMOGLOBIN 29.4 pg (27.0-33.0); MEAN CORPUSCULAR HGB CONC 31.1 g/dl (32.0-36.5); MEAN CORPUSCULAR VOLUME 94.7 fl (80.0-96.0); MONO # 0.9 10^3/uL (0.0-0.8); MONO % 9.9 % (2.0-8.0); NEUTROPHILS # 7.7 10^3/uL (1.5-8.5); NEUTROPHILS % 81.4 % (36.0-66.0); PLATELET COUNT, AUTOMATED 253 10^3/uL (150-450); RED BLOOD COUNT 4.49 10^6/uL (4.00-5.40); WHITE BLOOD COUNT 9.5 10^3/uL (4.0-10.0)
[2021-09-07 14:07] LABS: ALBUMIN 3.1 GM/DL (3.2-5.2); ALT/SGPT 55 U/L (12-78); BILIRUBIN,DIRECT 1.5 MG/DL (0.0-0.2); BILIRUBIN,TOTAL 1.7 MG/DL (0.2-1.0); BLOOD UREA NITROGEN 10 MG/DL (7-18); CALCIUM LEVEL 9.8 MG/DL (8.5-10.1); CARBON DIOXIDE LEVEL 30 MEQ/L (21-32); CHLORIDE LEVEL 104 MEQ/L (98-107); CREATININE FOR GFR 0.67 MG/DL (0.55-1.30); GLOMERULAR FILTRATION RATE > 60.0 (>60); GLUCOSE, FASTING 80 MG/DL (70-100); POTASSIUM SERUM 4.2 MEQ/L (3.5-5.1); SODIUM LEVEL 141 MEQ/L (136-145)
== END ==
LOC: M PLALAB 09:26
PROVIDERS: ATTEND Family Medicine
DX: L29.9 Pruritus, unspecified (principal)

== ENCOUNTER 2021-09-08 17:29 | Observation (INO) | payer MEDICARE, MEDICAID ==
[~2021-09-08] VITALS: Ht 167.6 cm; Wt 78.7 kg
[~2021-09-08 17:29] MED LIST changes: -CLOT1CRE56 TOP; -DIVA500T9 PO; -LAMO100T80 PO; -MUPI2OI TOP; -PROHANCE 279.3MG/ML 15ML VIAL ONE; -URSO1TAB8 PO
[2021-09-08 20:51] LABS: BASO % 0.6 % (0.0-1.0); EOS # 0.2 10^3/uL (0.0-0.5); EOS % 2.8 % (0.0-3.0); HEMOGLOBIN 14.1 g/dl (12.0-15.5); LYMPH # 0.9 10^3/uL (1.5-5.0); LYMPH % 13.3 % (24.0-44.0); MEAN CORPUSCULAR HEMOGLOBIN 29.7 pg (27.0-33.0); MEAN CORPUSCULAR VOLUME 92.6 fl (80.0-96.0); MONO # 0.6 10^3/uL (0.0-0.8); MONO % 9.7 % (2.0-8.0); NEUTROPHILS # 4.7 10^3/uL (1.5-8.5); PLATELET COUNT, AUTOMATED 301 10^3/uL (150-450); RED BLOOD COUNT 4.75 10^6/uL (4.00-5.40); WHITE BLOOD COUNT 6.5 10^3/uL (4.0-10.0)
[2021-09-08] MEDS ORDERED: DIVALPROEX 500MG *ER* TAB PO SCH (21:00)
[2021-09-08 21:23] LABS: ALBUMIN 3.6 GM/DL (3.2-5.2); ALT/SGPT 77 U/L (12-78); BILIRUBIN,DIRECT 1.2 MG/DL (0.0-0.2); BILIRUBIN,TOTAL 1.5 MG/DL (0.2-1.0); BLOOD UREA NITROGEN 10 MG/DL (7-18); CALCIUM LEVEL 10.2 MG/DL (8.5-10.1); CARBON DIOXIDE LEVEL 31 MEQ/L (21-32); CHLORIDE LEVEL 101 MEQ/L (98-107); CREATININE FOR GFR 0.65 MG/DL (0.55-1.30); GLOMERULAR FILTRATION RATE > 60.0 (>60); GLUCOSE, FASTING 68 MG/DL (70-100); LIPASE 299 U/L (73-393); POTASSIUM SERUM 4.2 MEQ/L (3.5-5.1); SODIUM LEVEL 138 MEQ/L (136-145); TOTAL PROTEIN 7.9 GM/DL (6.4-8.2)
[2021-09-09] MEDS ORDERED: PIPERACILLIN/TAZOBACTAM SOD 3.375 GM in D5W MINI-BAG PLUS 50 ML IV ONE (00:30)
[2021-09-09] MEDS: NS 1,000 ML IV SCH ×2 (01:20→11:00)
[2021-09-09] MEDS ORDERED: DIVA500T9 PO (01:26)
[2021-09-09] MEDS ORDERED: CLOT1CRE56 TOP (01:26)
[2021-09-09] MEDS ORDERED: URSO1TAB8 PO (01:26)
[2021-09-09] MEDS ORDERED: LAMO100T80 PO ×2 (01:26)
[2021-09-09] MEDS ORDERED: MUPI2OI TOP (01:26)
[2021-09-09] MEDS ORDERED: HOME MED LIST COMPLETE! XX SCH (01:30)
[2021-09-09 03:05] VITALS: BP 109/58
[2021-09-09] MEDS ORDERED: hydrOXYzine 50 MG TAB PO PRN (04:35)
[2021-09-09] MEDS: PIPERACILLIN/TAZOBACTAM SOD 3.375 GM in D5W MINI-BAG PLUS 50 ML IV SCH ×2 (05:05→14:26)
[2021-09-09 05:28] VITALS: BP 116/74
[2021-09-09 06:37] LABS: BASO % 0.4 % (0.0-1.0); EOS # 0.2 10^3/uL (0.0-0.5); EOS % 4.3 % (0.0-3.0); HEMATOCRIT 35.2 % (36.0-47.0); LYMPH # 0.8 10^3/uL (1.5-5.0); LYMPH % 17.3 % (24.0-44.0); MEAN CORPUSCULAR HEMOGLOBIN 30.5 pg (27.0-33.0); MEAN CORPUSCULAR HGB CONC 33.2 g/dl (32.0-36.5); MEAN CORPUSCULAR VOLUME 91.7 fl (80.0-96.0); MONO # 0.6 10^3/uL (0.0-0.8); MONO % 12.8 % (2.0-8.0); NEUTROPHILS # 3.1 10^3/uL (1.5-8.5); NEUTROPHILS % 64.8 % (36.0-66.0); PLATELET COUNT, AUTOMATED 214 10^3/uL (150-450); RED BLOOD COUNT 3.84 10^6/uL (4.00-5.40); WHITE BLOOD COUNT 4.9 10^3/uL (4.0-10.0)
[2021-09-09 06:39] LABS: HEMOGLOBIN 11.7 g/dl (12.0-15.5)
[2021-09-09 07:00] LABS: ALBUMIN 2.6 GM/DL (3.2-5.2); ALT/SGPT 52 U/L (12-78); BILIRUBIN,TOTAL 1.4 MG/DL (0.2-1.0); BLOOD UREA NITROGEN 10 MG/DL (7-18); CALCIUM LEVEL 9.1 MG/DL (8.5-10.1); CARBON DIOXIDE LEVEL 32 MEQ/L (21-32); CHLORIDE LEVEL 105 MEQ/L (98-107); CREATININE FOR GFR 0.54 MG/DL (0.55-1.30); GLOMERULAR FILTRATION RATE > 60.0 (>60); GLUCOSE, FASTING 83 MG/DL (70-100); SODIUM LEVEL 140 MEQ/L (136-145); TOTAL PROTEIN 5.5 GM/DL (6.4-8.2)
[2021-09-09] MEDS: hydrOXYzine 50 MG TAB PO SCH ×2 (08:26→18:06)
[2021-09-09] MEDS: busPIRone 10 MG TAB PO SCH ×2 (08:26→18:06)
[2021-09-09] MEDS ORDERED: lamoTRIgine 100MG TAB PO SCH ×2 (09:00→21:00)
[2021-09-09] MEDS ORDERED: VENLAFAXINE **XR** 37.5 MG CAPSULE PO SCH (09:00)
[2021-09-09] MEDS ORDERED: ARIPiprazole 10 MG TAB PO SCH (09:00)
[2021-09-09] MEDS ORDERED: VENLAFAXINE **XR** 75MG CAPSULE PO SCH (09:00)
[2021-09-09] MEDS ORDERED: D5W/0.9% SODIUM CHLORIDE 1,000 ML IV SCH (12:50)
[2021-09-09 14:00] VITALS: BP 108/63
[2021-09-09] MEDS ORDERED: CLOTRIMAZOLE 1% TOPICAL CREAM 30GM TOP SCH (21:00)
== END 2021-09-09 18:45 | disposition short-term general hospital (02) ==
LOC: M ED 17:29 → M ED INP 17:30 → UNDOADMIN 09-09 01:17 → INTOOBSV 09-09 01:17 → M ED INP 09-09 01:17 → ENRESERV 09-09 02:17 → M ED INP 09-09 03:12 → M MSPAV 09-09 03:12 → UNDOADMIN 09-09 17:30 → M ED INP 09-09 17:30 → UNDODISIN 09-09 18:45
PROVIDERS: ADMIT Family Medicine; ATTEND Family Medicine
DX: K83.1 Obstruction of bile duct (principal); R17 Unspecified jaundice; G40.909 Epilepsy, unspecified, not intractable, without status epilepticus; F79 Unspecified intellectual disabilities; F32.A Depression, unspecified; F41.9 Anxiety disorder, unspecified; K59.00 Constipation, unspecified; E78.1 Pure hyperglyceridemia; D86.9 Sarcoidosis, unspecified; J30.2 Other seasonal allergic rhinitis; Z96.89 Presence of other specified functional implants; Z90.49 Acquired absence of other specified parts of digestive tract; Z90.2 Acquired absence of lung [part of]; Z79.899 Other long term (current) drug therapy; Z79.3 Long term (current) use of hormonal contraceptives
CPT/HCPCS: 36415; 80048; 80053; 80076; 81001; 83605; 83690; 85025; 87040; 87426; 96361; 96365; 96366; 96376; 99284; G0378; J2543

== ENCOUNTER → 2021-09-08 | Outpatient (CLI) | payer MEDICARE, MEDICAID ==
[~2021-09-08] MED LIST changes: +PROHANCE 279.3MG/ML 15ML VIAL ONE
== END ==
LOC: M PLAIMG 09:03
PROVIDERS: ATTEND Physician Assistant
DX: K83.1 Obstruction of bile duct (principal)
CPT/HCPCS: 74183; A9576

== ENCOUNTER → 2021-10-19 | Outpatient (CLI) | payer MEDICARE, MEDICAID ==
[~2021-10-19] MED LIST changes: +CLOT1CRE56 TOP; +DIVA500T9 PO; +LAMO100T80 PO; +MUPI2OI TOP; +URSO1TAB8 PO
== END ==
LOC: M RAD 08:46
PROVIDERS: ATTEND Family Medicine
DX: K30 Functional dyspepsia (principal)
CPT/HCPCS: 78264; A9541

== ENCOUNTER → 2021-12-05 | Outpatient (CLI) | payer MEDICARE, MEDICAID | LOC: M PLAIMG 10:08 | PROVIDERS: ATTEND Internal Medicine Pulmonary Disease | DX: D86.1 Sarcoidosis of lymph nodes (principal); R93.2 Abnormal findings on diagnostic imaging of liver and biliary tract ==

== ENCOUNTER → 2022-03-15 | Outpatient (REF) | payer MEDICARE, MEDICAID ==
[2022-03-15 17:59] LABS: ALBUMIN 3.6 G/DL (3.2-5.2); ALKALINE PHOSPHATASE 190 U/L (46-116); ALT/SGPT 13 U/L (7.0-40); AST/SGOT 15 U/L (<34); BILIRUBIN,TOTAL 0.4 MG/DL (0.3-1.2); BLOOD UREA NITROGEN 12 MG/DL (9-23); CALCIUM LEVEL 10.1 MG/DL (8.5-10.1); CARBON DIOXIDE LEVEL 31 MMOL/L (20-31); CHLORIDE LEVEL 102 MMOL/L (98-107); CREATININE FOR GFR 0.71 MG/DL (0.55-1.30); GLOMERULAR FILTRATION RATE > 60.0 (>60); GLUCOSE, FASTING 75 MG/DL (60-100); POTASSIUM SERUM 5.1 MMOL/L (3.5-5.1); SODIUM LEVEL 140 MMOL/L (136-145); TOTAL PROTEIN 7.4 G/DL (5.7-8.2)
[2022-03-15 19:25] LABS: HEMOGLOBIN A1c 4.6 % (4.0-6.0)
== END ==
LOC: M SFHCCLAY 14:25
PROVIDERS: ATTEND Family Medicine
DX: F31.9 Bipolar disorder, unspecified (principal); Z79.899 Other long term (current) drug therapy

== ENCOUNTER → 2022-03-19 | Outpatient (CLI) | payer MEDICARE, MEDICAID ==
[2022-03-19 16:39] LABS: BASO % 0.5 % (0.0-1.0); EOS # 0.2 10^3/uL (0.0-0.5); EOS % 1.8 % (0.0-3.0); HEMATOCRIT 41.2 % (36.0-47.0); HEMOGLOBIN 12.7 g/dl (12.0-15.5); LYMPH # 1.1 10^3/uL (1.5-5.0); MEAN CORPUSCULAR HEMOGLOBIN 28.3 pg (27.0-33.0); MEAN CORPUSCULAR HGB CONC 30.8 g/dl (32.0-36.5); MONO # 0.6 10^3/uL (0.0-0.8); MONO % 6.9 % (2.0-8.0); NEUTROPHILS # 6.3 10^3/uL (1.5-8.5); NEUTROPHILS % 77.2 % (36.0-66.0); PLATELET COUNT, AUTOMATED 277 10^3/uL (150-450); RED BLOOD COUNT 4.48 10^6/uL (4.00-5.40); WHITE BLOOD COUNT 8.2 10^3/uL (4.0-10.0)
[2022-03-19 17:09] LABS: VALPROIC ACID (DEPAKOTE) 36.1 UG/ML (50.0-100.0)
[2022-03-19 17:11] LABS: TOTAL 25(OH) VITAMIN D 55.2 NG/ML (20.0-100.0)
[2022-03-19 17:12] LABS: FOLATE 13.33 NG/ML (>5.4)
== END ==
LOC: M WUC 12:49
PROVIDERS: ATTEND Psychiatry & Neurology Neurology
DX: R56.9 Unspecified convulsions (principal); E53.8 Deficiency of other specified B group vitamins

== ENCOUNTER → 2022-03-23 | Outpatient (CLI) | payer MEDICARE, MEDICAID | LOC: M SLEEP 20:00 | PROVIDERS: ATTEND Internal Medicine Critical Care Medicine | DX: G47.33 Obstructive sleep apnea (adult) (pediatric) (principal) ==

== ENCOUNTER → 2022-06-27 | Outpatient (CLI) | payer MEDICARE, MEDICAID ==
[2022-06-27 10:58] LABS: BASO % 0.8 % (0.0-1.0); EOS # 0.2 10^3/uL (0.0-0.5); EOS % 4.4 % (0.0-3.0); HEMATOCRIT 39.7 % (36.0-47.0); HEMOGLOBIN 12.4 g/dl (12.0-15.5); LYMPH # 1.3 10^3/uL (1.5-5.0); MEAN CORPUSCULAR HEMOGLOBIN 27.9 pg (27.0-33.0); MEAN CORPUSCULAR HGB CONC 31.2 g/dl (32.0-36.5); MEAN CORPUSCULAR VOLUME 89.4 fl (80.0-96.0); MONO # 0.6 10^3/uL (0.0-0.8); MONO % 12.2 % (2.0-8.0); NEUTROPHILS # 3.1 10^3/uL (1.5-8.5); NEUTROPHILS % 58.2 % (36.0-66.0); PLATELET COUNT, AUTOMATED 248 10^3/uL (150-450); RED BLOOD COUNT 4.44 10^6/uL (4.00-5.40); WHITE BLOOD COUNT 5.3 10^3/uL (4.0-10.0)
[2022-06-27 11:17] LABS: ALBUMIN 3.3 G/DL (3.2-5.2); ALKALINE PHOSPHATASE 160 U/L (46-116); ALT/SGPT 21 U/L (7.0-40); AST/SGOT 19 U/L (<34); BILIRUBIN,TOTAL 0.5 MG/DL (0.3-1.2); BLOOD UREA NITROGEN 9 MG/DL (9-23); CALCIUM LEVEL 9.2 MG/DL (8.5-10.1); CARBON DIOXIDE LEVEL 31 MMOL/L (20-31); CHLORIDE LEVEL 104 MMOL/L (98-107); CHOLESTEROL LEVEL 241 MG/DL (<200); CHOLESTEROL RISK RATIO 2.75 (<5); CREATININE FOR GFR 0.73 MG/DL (0.55-1.30); GLOMERULAR FILTRATION RATE > 60.0 (>60); GLUCOSE, FASTING 66 MG/DL (60-100); HDL CHOLESTEROL 87.4 MG/DL (>40); LDL CHOLESTEROL 118.4 MG/DL (<100); NON-HDL-C 153.6 MG/DL; POTASSIUM SERUM 4.2 MMOL/L (3.5-5.1); SODIUM LEVEL 140 MMOL/L (136-145); TOTAL PROTEIN 6.8 G/DL (5.7-8.2); TRIGLYCERIDES LEVEL 176 MG/DL (<150)
[2022-06-27 11:19] LABS: THYROID STIMULATING HORMONE 1.395 uIU/ML (0.55-4.78)
[2022-06-27 11:27] LABS: HEMOGLOBIN A1c 4.8 % (4.0-6.0)
== END ==
LOC: M PLALAB 08:18
PROVIDERS: ATTEND Physician Assistant
DX: Z79.899 Other long term (current) drug therapy (principal)

== ENCOUNTER → 2022-07-03 | Outpatient (REF) | payer MEDICARE, MEDICAID ==
[2022-07-03 17:10] LABS: APPEARANCE, URINE CLEAR (CLEAR); BACTERIA, URINE AUTO NEGATIVE (NEGATIVE); BILIRUBIN, URINE AUTO NEGATIVE (NEGATIVE); BLOOD, URINE BLOOD NEGATIVE (NEGATIVE); COLOR, URINE YELLOW (YELLOW); GLUCOSE, URINE (UA) AUTO NEGATIVE (NEGATIVE); KETONE, URINE AUTO NEGATIVE (NEGATIVE); LEUKOCYTE ESTERASE, URINE AUTO NEGATIVE (NEGATIVE); NITRITE, URINE AUTO NEGATIVE (NEGATIVE); PROTEIN, URINE AUTO NEGATIVE (NEGATIVE); RBC, URINE AUTO 0 /HPF (0-3); SPECIFIC GRAVITY URINE AUTO 1.008 (1.002-1.035); SQUAMOUS EPITHELIAL CELL UR AU 1 /HPF (0-6); UROBILINOGEN, URINE AUTO 0.2 mg/dL (0.0-2.0); WBC, URINE AUTO 0 /HPF (0-3)
== END ==
LOC: M SMT 16:47
PROVIDERS: ATTEND Urology
DX: N39.41 Urge incontinence (principal)

== ENCOUNTER → 2022-07-18 | Outpatient (REF) | payer MEDICARE, MEDICAID | LOC: M SFHCWAGY 18:02 | PROVIDERS: ATTEND Nurse Practitioner Family | DX: Z12.4 Encounter for screening for malignant neoplasm of cervix (principal); R87.618 Other abnormal cytological findings on specimens from cervix uteri; R87.615 Unsatisfactory cytologic smear of cervix | CPT/HCPCS: 87624; G0123 ==

== ENCOUNTER → 2022-07-26 | Outpatient (REF) | payer MEDICARE, MEDICAID | LOC: M SFHCWAGY 15:35 | PROVIDERS: ATTEND Nurse Practitioner Family | DX: Z12.4 Encounter for screening for malignant neoplasm of cervix (principal) ==

== ENCOUNTER → 2022-09-14 | Outpatient (CLI) | payer MEDICARE, MEDICAID | LOC: M WUC 09:47 | PROVIDERS: ATTEND Physician Assistant | DX: K83.1 Obstruction of bile duct (principal) ==

== ENCOUNTER → 2022-09-14 | Outpatient (CLI) | payer MEDICARE, MEDICAID ==
[2022-09-14 14:01] LABS: BASO % 0.6 % (0.0-1.0); EOS # 0.2 10^3/uL (0.0-0.5); EOS % 2.3 % (0.0-3.0); HEMATOCRIT 40.2 % (36.0-47.0); HEMOGLOBIN 12.7 g/dl (12.0-15.5); LYMPH % 15.4 % (24.0-44.0); MEAN CORPUSCULAR HGB CONC 31.6 g/dl (32.0-36.5); MEAN CORPUSCULAR VOLUME 88.5 fl (80.0-96.0); MONO # 0.6 10^3/uL (0.0-0.8); MONO % 8.6 % (2.0-8.0); NEUTROPHILS # 4.7 10^3/uL (1.5-8.5); NEUTROPHILS % 72.6 % (36.0-66.0); PLATELET COUNT, AUTOMATED 273 10^3/uL (150-450); RED BLOOD COUNT 4.54 10^6/uL (4.00-5.40); WHITE BLOOD COUNT 6.4 10^3/uL (4.0-10.0)
[2022-09-14 14:24] LABS: ALBUMIN 3.2 G/DL (3.2-5.2); ALKALINE PHOSPHATASE 139 U/L (46-116); ALT/SGPT 15 U/L (7.0-40); AST/SGOT < 8 U/L (<34); BILIRUBIN,TOTAL 0.4 MG/DL (0.3-1.2); BLOOD UREA NITROGEN 17 MG/DL (9-23); CARBON DIOXIDE LEVEL 30 MMOL/L (20-31); CHLORIDE LEVEL 104 MMOL/L (98-107); CREATININE FOR GFR 0.63 MG/DL (0.55-1.30); GLOMERULAR FILTRATION RATE > 60.0 (>60); GLUCOSE, FASTING 69 MG/DL (60-100); POTASSIUM SERUM 4.6 MMOL/L (3.5-5.1); SODIUM LEVEL 141 MMOL/L (136-145); TOTAL PROTEIN 6.5 G/DL (5.7-8.2)
== END ==
LOC: M WUC 10:36
PROVIDERS: ATTEND Physician Assistant
DX: K83.1 Obstruction of bile duct (principal)

== ENCOUNTER → 2022-11-26 | Outpatient (CLI) | payer MEDICARE, MEDICAID | LOC: M WUC 08:45 | PROVIDERS: ATTEND Internal Medicine Critical Care Medicine | DX: D86.1 Sarcoidosis of lymph nodes (principal) ==

== ENCOUNTER → 2022-12-19 | Outpatient (CLI) | payer MEDICARE, MEDICAID ==
[2022-12-19 10:56] LABS: BASO % 0.6 % (0.0-1.0); EOS # 0.2 10^3/uL (0.0-0.5); EOS % 2.6 % (0.0-3.0); HEMATOCRIT 41.6 % (36.0-47.0); HEMOGLOBIN 13.1 g/dl (12.0-15.5); LYMPH # 1.3 10^3/uL (1.5-5.0); LYMPH % 20.7 % (24.0-44.0); MEAN CORPUSCULAR HEMOGLOBIN 27.3 pg (27.0-33.0); MEAN CORPUSCULAR HGB CONC 31.5 g/dl (32.0-36.5); MEAN CORPUSCULAR VOLUME 86.8 fl (80.0-96.0); MONO # 0.6 10^3/uL (0.0-0.8); MONO % 9.6 % (2.0-8.0); NEUTROPHILS # 4.1 10^3/uL (1.5-8.5); PLATELET COUNT, AUTOMATED 293 10^3/uL (150-450); RED BLOOD COUNT 4.79 10^6/uL (4.00-5.40); WHITE BLOOD COUNT 6.3 10^3/uL (4.0-10.0)
[2022-12-19 11:35] LABS: VALPROIC ACID (DEPAKOTE) 51.4 UG/ML (50.0-100.0)
[2022-12-19 11:36] LABS: ALBUMIN 3.4 G/DL (3.2-5.2); ALKALINE PHOSPHATASE 134 U/L (46-116); ALT/SGPT 21 U/L (7.0-40); AST/SGOT 9 U/L (<34); BILIRUBIN,TOTAL 0.4 MG/DL (0.3-1.2); BLOOD UREA NITROGEN 14 MG/DL (9-23); CALCIUM LEVEL 9.2 MG/DL (8.5-10.1); CARBON DIOXIDE LEVEL 30 MMOL/L (20-31); CHLORIDE LEVEL 103 MMOL/L (98-107); CREATININE FOR GFR 0.73 MG/DL (0.55-1.30); GLOMERULAR FILTRATION RATE > 60.0 (>60); GLUCOSE, FASTING 62 MG/DL (60-100); POTASSIUM SERUM 4.3 MMOL/L (3.5-5.1); SODIUM LEVEL 140 MMOL/L (136-145); TOTAL PROTEIN 6.8 G/DL (5.7-8.2)
== END ==
LOC: M WUC 08:05
PROVIDERS: ATTEND Psychiatry & Neurology Neurology
DX: R56.9 Unspecified convulsions (principal)

== ENCOUNTER → 2022-12-19 | Outpatient (CLI) | payer MEDICARE, MEDICAID ==
[2022-12-19 10:57] LABS: BASO % 0.6 % (0.0-1.0); EOS # 0.2 10^3/uL (0.0-0.5); EOS % 2.4 % (0.0-3.0); HEMATOCRIT 41.7 % (36.0-47.0); HEMOGLOBIN 12.9 g/dl (12.0-15.5); LYMPH # 1.3 10^3/uL (1.5-5.0); MEAN CORPUSCULAR HGB CONC 30.9 g/dl (32.0-36.5); MEAN CORPUSCULAR VOLUME 87.4 fl (80.0-96.0); MONO # 0.6 10^3/uL (0.0-0.8); MONO % 9.3 % (2.0-8.0); NEUTROPHILS # 4.1 10^3/uL (1.5-8.5); NEUTROPHILS % 66.1 % (36.0-66.0); PLATELET COUNT, AUTOMATED 308 10^3/uL (150-450); RED BLOOD COUNT 4.77 10^6/uL (4.00-5.40); WHITE BLOOD COUNT 6.2 10^3/uL (4.0-10.0)
[2022-12-19 11:37] LABS: ALBUMIN 3.3 G/DL (3.2-5.2); ALKALINE PHOSPHATASE 133 U/L (46-116); ALT/SGPT 20 U/L (7.0-40); AST/SGOT 8 U/L (<34); BILIRUBIN,TOTAL 0.4 MG/DL (0.3-1.2); BLOOD UREA NITROGEN 13 MG/DL (9-23); CALCIUM LEVEL 9.2 MG/DL (8.5-10.1); CARBON DIOXIDE LEVEL 31 MMOL/L (20-31); CHLORIDE LEVEL 102 MMOL/L (98-107); CREATININE FOR GFR 0.71 MG/DL (0.55-1.30); GLOMERULAR FILTRATION RATE > 60.0 (>60); GLUCOSE, FASTING 63 MG/DL (60-100); POTASSIUM SERUM 4.4 MMOL/L (3.5-5.1); SODIUM LEVEL 140 MMOL/L (136-145); TOTAL PROTEIN 6.8 G/DL (5.7-8.2)
== END ==
LOC: M WUC 08:02
PROVIDERS: ATTEND Physician Assistant
DX: K83.1 Obstruction of bile duct (principal)

== ENCOUNTER → 2023-02-12 | Outpatient (CLI) | payer MEDICARE, MEDICAID ==
[~2023-02-12] MED LIST changes: -EFFE37.5 PO; +EFFE37.52 PO
== END ==
LOC: M EKG 14:25
PROVIDERS: ATTEND Internal Medicine Critical Care Medicine
DX: D86.1 Sarcoidosis of lymph nodes (principal)

== ENCOUNTER → 2023-02-15 | Outpatient (REF) | payer MEDICARE, MEDICAID ==
[2023-02-15 14:51] LABS: AMORPHOUS SEDIMENT SMALL (NEGATIVE); APPEARANCE, URINE CLOUDY (CLEAR); BACTERIA, URINE AUTO NEGATIVE (NEGATIVE); BILIRUBIN, URINE AUTO NEGATIVE (NEGATIVE); BLOOD, URINE BLOOD NEGATIVE (NEGATIVE); COLOR, URINE YELLOW (YELLOW); GLUCOSE, URINE (UA) AUTO NEGATIVE (NEGATIVE); KETONE, URINE AUTO NEGATIVE (NEGATIVE); LEUKOCYTE ESTERASE, URINE AUTO NEGATIVE (NEGATIVE); MUCUS, URINE SMALL (NEGATIVE); NITRITE, URINE AUTO NEGATIVE (NEGATIVE); PROTEIN, URINE AUTO 1+ mg/dL (NEGATIVE); RBC, URINE AUTO 0 /HPF (0-3); SPECIFIC GRAVITY URINE AUTO 1.023 (1.002-1.035); SQUAMOUS EPITHELIAL CELL UR AU 2 /HPF (0-6); UROBILINOGEN, URINE AUTO 0.2 mg/dL (0.0-2.0); WBC, URINE AUTO 0 /HPF (0-3)
== END ==
LOC: M SMT 13:40
PROVIDERS: ATTEND Urology
DX: N32.81 Overactive bladder (principal)

== ENCOUNTER → 2023-06-05 | Outpatient (REF) | payer MEDICARE, MEDICAID ==
[2023-06-05 17:36] LABS: HEMATOCRIT 41.3 % (36.0-47.0); HEMOGLOBIN 12.9 g/dl (12.0-15.5); MEAN CORPUSCULAR HEMOGLOBIN 27.6 pg (27.0-33.0); MEAN CORPUSCULAR HGB CONC 31.2 g/dl (32.0-36.5); MEAN CORPUSCULAR VOLUME 88.2 fl (80.0-96.0); PLATELET COUNT, AUTOMATED 295 10^3/uL (150-450); RED BLOOD COUNT 4.68 10^6/uL (4.00-5.40); WHITE BLOOD COUNT 8.3 10^3/uL (4.0-10.0)
[2023-06-05 18:06] LABS: ALBUMIN 3.5 G/DL (3.2-5.2); ALKALINE PHOSPHATASE 133 U/L (46-116); ALT/SGPT 14 U/L (7.0-40); AST/SGOT < 8 U/L (<34); BILIRUBIN,TOTAL 0.3 MG/DL (0.3-1.2); BLOOD UREA NITROGEN 13 MG/DL (9-23); CALCIUM LEVEL 9.8 MG/DL (8.5-10.1); CARBON DIOXIDE LEVEL 33 MMOL/L (20-31); CHLORIDE LEVEL 103 MMOL/L (98-107); CHOLESTEROL LEVEL 238 MG/DL (<200); CHOLESTEROL RISK RATIO 2.93 (<5); GLOMERULAR FILTRATION RATE > 60.0 (>60); GLUCOSE, FASTING 70 MG/DL (60-100); LDL CHOLESTEROL 107.8 MG/DL (<100); POTASSIUM SERUM 4.9 MMOL/L (3.5-5.1); SODIUM LEVEL 140 MMOL/L (136-145); TRIGLYCERIDES LEVEL 246 MG/DL (<150)
[2023-06-05 18:09] LABS: THYROID STIMULATING HORMONE 1.803 uIU/ML (0.55-4.78)
[2023-06-05 18:43] LABS: HCG, SERUM QUALITATIVE NEGATIVE (NEGATIVE)
== END ==
LOC: M SFHCCLAY 11:54
PROVIDERS: ATTEND Family Medicine
DX: Z00.00 Encounter for general adult medical examination without abnormal findings (principal); Z90.49 Acquired absence of other specified parts of digestive tract; K80.50 Calculus of bile duct without cholangitis or cholecystitis without obstruction; Z98.890 Other specified postprocedural states; N91.1 Secondary amenorrhea; Z79.899 Other long term (current) drug therapy

== ENCOUNTER 2023-06-19 15:02 | Emergency (ER) | payer MEDICARE, MEDICAID ==
[~2023-06-19] VITALS: Ht 167.6 cm; Wt 81.8 kg
[2023-06-19 16:13] LABS: HEMATOCRIT 37.8 % (36.0-47.0); HEMOGLOBIN 12.1 g/dl (12.0-15.5); MEAN CORPUSCULAR VOLUME 87.5 fl (80.0-96.0); PLATELET COUNT, AUTOMATED 283 10^3/uL (150-450); RED BLOOD COUNT 4.32 10^6/uL (4.00-5.40); WHITE BLOOD COUNT 6.7 10^3/uL (4.0-10.0)
[2023-06-19 16:41] LABS: ETHYL ALCOHOL (ETHANOL) 0.006 % (0.000-0.010)
[2023-06-19 16:43] LABS: ALBUMIN 3.3 G/DL (3.2-5.2); ALKALINE PHOSPHATASE 146 U/L (46-116); ALT/SGPT 19 U/L (7.0-40); AST/SGOT 9 U/L (<34); BILIRUBIN,DIRECT < 0.1 MG/DL (<0.4); BILIRUBIN,TOTAL 0.3 MG/DL (0.3-1.2); BLOOD UREA NITROGEN 13 MG/DL (9-23); CALCIUM LEVEL 9.1 MG/DL (8.5-10.1); CARBON DIOXIDE LEVEL 26 MMOL/L (20-31); CHLORIDE LEVEL 107 MMOL/L (98-107); CREATININE FOR GFR 0.62 MG/DL (0.55-1.30); GLOMERULAR FILTRATION RATE > 60.0 (>60); GLUCOSE, FASTING 124 MG/DL (60-100); POTASSIUM SERUM 4.6 MMOL/L (3.5-5.1); SALICYLATE LEVEL < 3.0 MG/DL (<30); SODIUM LEVEL 143 MMOL/L (136-145); TOTAL PROTEIN 6.8 G/DL (5.7-8.2)
[2023-06-19 16:45] LABS: THYROID STIMULATING HORMONE 1.073 uIU/ML (0.55-4.78)
[2023-06-19 16:47] LABS: HCG, SERUM QUALITATIVE NEGATIVE (NEGATIVE)
[2023-06-19 18:30] VITALS: BP 127/81; TEMP 97.9; O2SAT 96
== END 2023-06-19 18:32 | disposition home or self-care (01) ==
LOC: M ED 15:02
DX: F43.0 Acute stress reaction (principal); F41.9 Anxiety disorder, unspecified; F32.A Depression, unspecified; Z91.09 Other allergy status, other than to drugs and biological substances; Z79.899 Other long term (current) drug therapy

== ENCOUNTER → 2023-07-26 | Outpatient (CLI) | payer MEDICARE, MEDICAID ==
[2023-07-26 11:18] LABS: BASO # 0.1 10^3/uL (0.0-0.2); BASO % 0.8 % (0.0-1.0); EOS # 0.2 10^3/uL (0.0-0.5); EOS % 2.6 % (0.0-3.0); HEMATOCRIT 39.2 % (36.0-47.0); HEMOGLOBIN 12.3 g/dl (12.0-15.5); LYMPH # 1.1 10^3/uL (1.5-5.0); MEAN CORPUSCULAR HEMOGLOBIN 27.3 pg (27.0-33.0); MEAN CORPUSCULAR HGB CONC 31.4 g/dl (32.0-36.5); MEAN CORPUSCULAR VOLUME 87.1 fl (80.0-96.0); MONO # 0.6 10^3/uL (0.0-0.8); MONO % 9.2 % (2.0-8.0); NEUTROPHILS # 4.3 10^3/uL (1.5-8.5); NEUTROPHILS % 68.4 % (36.0-66.0); PLATELET COUNT, AUTOMATED 257 10^3/uL (150-450); WHITE BLOOD COUNT 6.2 10^3/uL (4.0-10.0)
[2023-07-26 11:40] LABS: VALPROIC ACID (DEPAKOTE) 73.5 UG/ML (50.0-100.0)
[2023-07-26 11:42] LABS: ALBUMIN 3.2 G/DL (3.2-5.2); ALKALINE PHOSPHATASE 119 U/L (46-116); ALT/SGPT 16 U/L (7.0-40); AST/SGOT 13 U/L (<34); BILIRUBIN,TOTAL 0.4 MG/DL (0.3-1.2); BLOOD UREA NITROGEN 10 MG/DL (9-23); CALCIUM LEVEL 9.1 MG/DL (8.5-10.1); CARBON DIOXIDE LEVEL 28 MMOL/L (20-31); CHLORIDE LEVEL 104 MMOL/L (98-107); CREATININE FOR GFR 0.73 MG/DL (0.55-1.30); GLOMERULAR FILTRATION RATE > 60.0 (>60); GLUCOSE, FASTING 81 MG/DL (60-100); POTASSIUM SERUM 4.2 MMOL/L (3.5-5.1); SODIUM LEVEL 140 MMOL/L (136-145); TOTAL PROTEIN 6.5 G/DL (5.7-8.2)
== END ==
LOC: M WUC 08:36
PROVIDERS: ATTEND Psychiatry & Neurology Neurology
DX: R56.9 Unspecified convulsions (principal)

== ENCOUNTER → 2023-10-29 | Outpatient (CLI) | payer MEDICARE, MEDICAID ==
[~2023-10-29] MED LIST changes: -AZEL0.055 NARES; +AZEL1SPR4 NARES
[2023-10-29 11:55] LABS: BASO # 0.1 10^3/uL (0.0-0.2); BASO % 0.6 % (0.0-1.0); EOS # 0.2 10^3/uL (0.0-0.5); EOS % 2.2 % (0.0-3.0); HEMATOCRIT 38.7 % (36.0-47.0); HEMOGLOBIN 12.5 g/dl (12.0-15.5); LYMPH # 1.3 10^3/uL (1.5-5.0); LYMPH % 15.2 % (24.0-44.0); MEAN CORPUSCULAR HEMOGLOBIN 27.9 pg (27.0-33.0); MEAN CORPUSCULAR HGB CONC 32.3 g/dl (32.0-36.5); MEAN CORPUSCULAR VOLUME 86.4 fl (80.0-96.0); MONO # 0.9 10^3/uL (0.0-0.8); MONO % 11.1 % (2.0-8.0); NEUTROPHILS # 5.8 10^3/uL (1.5-8.5); NEUTROPHILS % 69.8 % (36.0-66.0); PLATELET COUNT, AUTOMATED 275 10^3/uL (150-450); RED BLOOD COUNT 4.48 10^6/uL (4.00-5.40); WHITE BLOOD COUNT 8.4 10^3/uL (4.0-10.0)
[2023-10-29 12:08] LABS: HEMOGLOBIN A1c 4.9 % (4.0-6.0)
[2023-10-29 12:21] LABS: ALBUMIN 3.2 G/DL (3.2-5.2); ALKALINE PHOSPHATASE 137 U/L (46-116); ALT/SGPT 21 U/L (7.0-40); AST/SGOT 11 U/L (<34); BILIRUBIN,TOTAL 0.4 MG/DL (0.3-1.2); BLOOD UREA NITROGEN 13 MG/DL (9-23); CALCIUM LEVEL 9.5 MG/DL (8.5-10.1); CARBON DIOXIDE LEVEL 32 MMOL/L (20-31); CHLORIDE LEVEL 104 MMOL/L (98-107); CHOLESTEROL LEVEL 241 MG/DL (<200); CHOLESTEROL RISK RATIO 2.81 (<5); CREATININE FOR GFR 0.64 MG/DL (0.55-1.30); GLOMERULAR FILTRATION RATE > 60.0 (>60); GLUCOSE, FASTING 70 MG/DL (60-100); HDL CHOLESTEROL 85.7 MG/DL (>40); LDL CHOLESTEROL 91.7 MG/DL (<100); NON-HDL-C 155.3 MG/DL; POTASSIUM SERUM 4.9 MMOL/L (3.5-5.1); SODIUM LEVEL 138 MMOL/L (136-145); TOTAL PROTEIN 6.8 G/DL (5.7-8.2); TRIGLYCERIDES LEVEL 318 MG/DL (<150)
== END ==
LOC: M LAB 10:55
PROVIDERS: ATTEND Physician Assistant
DX: Z79.899 Other long term (current) drug therapy (principal)

== ENCOUNTER → 2023-11-28 | Outpatient (REF) | payer MEDICARE, MEDICAID | LOC: M SFHCWAGY 12:20 | PROVIDERS: ATTEND Nurse Practitioner Family | DX: N73.9 Female pelvic inflammatory disease, unspecified (principal) ==

== ENCOUNTER → 2024-05-29 | Outpatient (CLI) | payer MEDICARE, MEDICAID ==
[2024-05-29 08:19] LABS: HEMATOCRIT 36.8 % (36.0-47.0); HEMOGLOBIN 11.6 g/dl (12.0-15.5); MEAN CORPUSCULAR HEMOGLOBIN 27.4 pg (27.0-33.0); MEAN CORPUSCULAR HGB CONC 31.5 g/dl (32.0-36.5); PLATELET COUNT, AUTOMATED 250 10^3/uL (150-450); RED BLOOD COUNT 4.23 10^6/uL (4.00-5.40); WHITE BLOOD COUNT 5.3 10^3/uL (4.0-10.0)
[2024-05-29 08:43] LABS: THYROID STIMULATING HORMONE 3.229 uIU/ML (0.55-4.78)
[2024-05-29 08:44] LABS: ALBUMIN 3.1 G/DL (3.2-5.2); ALKALINE PHOSPHATASE 119 U/L (35-104); ALT/SGPT 16 U/L (7.0-40); AST/SGOT 11 U/L (<34); BILIRUBIN,TOTAL 0.4 MG/DL (0.3-1.2); BLOOD UREA NITROGEN 11 MG/DL (9-23); CALCIUM LEVEL 9.1 MG/DL (8.5-10.1); CARBON DIOXIDE LEVEL 29 MMOL/L (20-31); CHLORIDE LEVEL 104 MMOL/L (98-107); CHOLESTEROL LEVEL 224 MG/DL (<200); CHOLESTEROL RISK RATIO 2.68 (<5); CREATININE FOR GFR 0.76 MG/DL (0.55-1.30); FREE T4 1.23 NG/DL (0.89-1.76); GLOMERULAR FILTRATION RATE > 60.0 (>60); GLUCOSE, FASTING 69 MG/DL (60-100); HDL CHOLESTEROL 83.5 MG/DL (>40); LDL CHOLESTEROL 105.3 MG/DL (<100); NON-HDL-C 140.5 MG/DL; POTASSIUM SERUM 4.2 MMOL/L (3.5-5.1); SODIUM LEVEL 143 MMOL/L (136-145); TOTAL PROTEIN 6.8 G/DL (5.7-8.2); TRIGLYCERIDES LEVEL 176 MG/DL (<150)
== END ==
LOC: M LAB 07:20
PROVIDERS: ATTEND Family Medicine
DX: Z00.00 Encounter for general adult medical examination without abnormal findings (principal); Z90.49 Acquired absence of other specified parts of digestive tract; K80.50 Calculus of bile duct without cholangitis or cholecystitis without obstruction; Z98.890 Other specified postprocedural states; E66.9 Obesity, unspecified; Z79.899 Other long term (current) drug therapy

== ENCOUNTER → 2024-06-04 | Outpatient (REF) | payer MEDICARE, MEDICAID | LOC: M SFHCCLAY 17:05 | PROVIDERS: ATTEND Physician Assistant | DX: N89.8 Other specified noninflammatory disorders of vagina (principal) ==

== ENCOUNTER → 2024-06-04 | Outpatient (CLI) | payer MEDICARE, MEDICAID | LOC: M RAD 08:35 | PROVIDERS: ATTEND Internal Medicine Critical Care Medicine | DX: D86.1 Sarcoidosis of lymph nodes (principal) ==

== ENCOUNTER → 2024-09-24 | Outpatient (CLI) | payer MEDICARE, MEDICAID ==
[2024-09-24 11:28] LABS: BASO # 0.0 10^3/uL (0.0-0.2); BASO % 0.6 % (0.0-1.0); EOS # 0.2 10^3/uL (0.0-0.5); EOS % 2.7 % (0.0-3.0); LYMPH # 1.8 10^3/uL (1.5-5.0); LYMPH % 27.7 % (24.0-44.0); MONO # 0.7 10^3/uL (0.0-0.8); MONO % 10.5 % (2.0-8.0); NEUTROPHILS # 3.8 10^3/uL (1.5-8.5); NEUTROPHILS % 58.0 % (36.0-66.0); PLATELET COUNT, AUTOMATED 259 10^3/uL (150-450)
[2024-09-24 11:36] LABS: ALT/SGPT 14 U/L (7.0-40); AST/SGOT 13 U/L (<34); CALCIUM LEVEL 9.1 MG/DL (8.5-10.1); CARBON DIOXIDE LEVEL 30 MMOL/L (20-31); CHLORIDE LEVEL 105 MMOL/L (98-107); CREATININE FOR GFR 0.82 MG/DL (0.55-1.30); GLOMERULAR FILTRATION RATE > 90.0 (>60); POTASSIUM SERUM 4.8 MMOL/L (3.5-5.1); SODIUM LEVEL 145 MMOL/L (136-145)
== END ==
LOC: M PLALAB 07:45
PROVIDERS: ATTEND Physician Assistant
DX: K83.1 Obstruction of bile duct (principal)

== ENCOUNTER → 2024-11-04 | Outpatient (CLI) | payer MEDICARE, MEDICAID ==
[~2024-11-04] MED LIST changes: +URSO1TAB2 PO; -URSO1TAB8 PO
== END ==
LOC: M WUC 08:30
PROVIDERS: ATTEND Physician Assistant
DX: M25.561 Pain in right knee (principal); M25.562 Pain in left knee

== ENCOUNTER → 2024-12-25 | Outpatient (CLI) | payer MEDICARE, MEDICAID ==
[2024-12-25 10:16] LABS: BASO # 0.0 10^3/uL (0.0-0.2); BASO % 0.7 % (0.0-1.0); EOS # 0.2 10^3/uL (0.0-0.5); EOS % 2.6 % (0.0-3.0); LYMPH # 1.7 10^3/uL (1.5-5.0); LYMPH % 29.1 % (24.0-44.0); MONO # 0.6 10^3/uL (0.0-0.8); MONO % 9.9 % (2.0-8.0); NEUTROPHILS # 3.4 10^3/uL (1.5-8.5); NEUTROPHILS % 57.0 % (36.0-66.0); PLATELET COUNT, AUTOMATED 255 10^3/uL (150-450)
[2024-12-25 10:17] LABS: ALT/SGPT 15 U/L (7.0-40); AST/SGOT 14 U/L (<34); CALCIUM LEVEL 9.1 MG/DL (8.5-10.1); CARBON DIOXIDE LEVEL 28 MMOL/L (20-31); CHLORIDE LEVEL 104 MMOL/L (98-107); CHOLESTEROL LEVEL 276 MG/DL (<200); CHOLESTEROL RISK RATIO 3.09 (<5); CREATININE FOR GFR 0.71 MG/DL (0.55-1.30); GLOMERULAR FILTRATION RATE > 90.0 (>60); LDL CHOLESTEROL 138.2 MG/DL (<100); NON-HDL-C 186.8 MG/DL; POTASSIUM SERUM 4.0 MMOL/L (3.5-5.1); SODIUM LEVEL 144 MMOL/L (136-145); TRIGLYCERIDES LEVEL 243 MG/DL (<150)
[2024-12-25 10:39] LABS: ESTIMATED AVERAGE GLUCOSE 105.0 MG/DL (60-110)
== END ==
LOC: M PLALAB 07:45
PROVIDERS: ATTEND Physician Assistant
DX: Z51.81 Encounter for therapeutic drug level monitoring (principal); Z79.899 Other long term (current) drug therapy

== ENCOUNTER → 2025-01-06 | Outpatient (CLI) | payer MEDICARE, MEDICAID ==
[2025-01-06 11:16] LABS: ALT/SGPT 13 U/L (7.0-40); AST/SGOT 12 U/L (<34); BASO # 0.0 10^3/uL (0.0-0.2); BASO % 0.5 % (0.0-1.0); CALCIUM LEVEL 9.4 MG/DL (8.5-10.1); CARBON DIOXIDE LEVEL 30 MMOL/L (20-31); CHLORIDE LEVEL 102 MMOL/L (98-107); CREATININE FOR GFR 0.79 MG/DL (0.55-1.30); EOS # 0.2 10^3/uL (0.0-0.5); EOS % 2.2 % (0.0-3.0); GLOMERULAR FILTRATION RATE > 90.0 (>60); LYMPH # 1.7 10^3/uL (1.5-5.0); LYMPH % 22.2 % (24.0-44.0); MONO # 0.7 10^3/uL (0.0-0.8); MONO % 9.6 % (2.0-8.0); NEUTROPHILS # 4.9 10^3/uL (1.5-8.5); NEUTROPHILS % 64.8 % (36.0-66.0); PLATELET COUNT, AUTOMATED 302 10^3/uL (150-450); POTASSIUM SERUM 4.9 MMOL/L (3.5-5.1); SODIUM LEVEL 142 MMOL/L (136-145)
== END ==
LOC: M PLALAB 08:26
PROVIDERS: ATTEND Physician Assistant
DX: K83.1 Obstruction of bile duct (principal)

== ENCOUNTER → 2025-01-07 | Outpatient (CLI) | payer MEDICARE, MEDICAID | LOC: M LAB 09:07 | PROVIDERS: ATTEND Psychiatry & Neurology Neurology | DX: R56.9 Unspecified convulsions (principal) ==

== ENCOUNTER → 2025-01-18 | Outpatient (CLI) | payer MEDICARE, MEDICAID | LOC: M SLEEP 20:00 | PROVIDERS: ATTEND Internal Medicine Critical Care Medicine | DX: G47.33 Obstructive sleep apnea (adult) (pediatric) (principal) ==

== ENCOUNTER → 2025-02-19 | Outpatient (REF) | payer MEDICARE, MEDICAID ==
[2025-02-19 13:39] LABS: APPEARANCE, URINE HAZY (CLEAR); BACTERIA, URINE AUTO NEGATIVE (NEGATIVE); BILIRUBIN, URINE AUTO NEGATIVE (NEGATIVE); BLOOD, URINE BLOOD NEGATIVE (NEGATIVE); GLUCOSE, URINE (UA) AUTO NEGATIVE (NEGATIVE); KETONE, URINE AUTO NEGATIVE (NEGATIVE); LEUKOCYTE ESTERASE, URINE AUTO NEGATIVE (NEGATIVE); MUCUS, URINE SMALL (NEGATIVE); NITRITE, URINE AUTO NEGATIVE (NEGATIVE); PROTEIN, URINE AUTO NEGATIVE (NEGATIVE); RBC, URINE AUTO 0 /HPF (0-3); SPECIFIC GRAVITY URINE AUTO 1.019 (1.002-1.035); SQUAMOUS EPITHELIAL CELL UR AU 3 /HPF (0-6); UROBILINOGEN, URINE AUTO 0.2 mg/dL (0.0-2.0); WBC, URINE AUTO 0 /HPF (0-3)
== END ==
LOC: M SMT 12:58
PROVIDERS: ATTEND Urology
DX: N32.81 Overactive bladder (principal); R82.90 Unspecified abnormal findings in urine